=== PATIENT | female | born 1950 | race Caucasian/White ===

== ENCOUNTER 2018-05-09 21:21 | Outpatient (REF) | payer MEDICARE, MEDICAID, SELFPAY ==
[2018-05-09 21:54] LABS: BUN 13 mg/dL (7-18); CREATININE 0.74 mg/dL (0.55-1.02); Calcium 9.4 mg/dL (8.5-10.1); Chloride 102 mmol/L (98-107); Glucose 99 mg/dL (70-100); Potassium 4.3 mmol/L (3.5-5.1); Sodium 139 mmol/L (136-145)
[2018-05-09 22:10] LABS: COMMENT (LAB VIEW ONLY) 66.65 mg/dL; Microalb ug/mg Crea 9.9 ug/mg Cr
== END 2018-05-09 21:41 ==
LOC: NCHCN 21:21
PROVIDERS: Family Medicine; PCP Family Medicine
DX: I10 Essential (primary) hypertension (principal)
CPT/HCPCS: 80048; 82043; 82570

== ENCOUNTER 2018-08-07 11:42 | Outpatient (REF) | payer MEDICARE, MEDICAID, SELFPAY ==
[2018-08-07 21:20] LABS: HCT 36.8 % (36.0-46.0); HGB 12.2 g/dL (12.0-15.5); Mean Corp. HGB Concentration 33.2 g/dL (32.0-36.0); Mean Corpuscular Hemoglobin 30.9 pg (27.0-33.0); Mean Corpuscular Volume 93.2 fL (80-95); Mean Platelet Volume 9.4 fL (8.0-11.0); Platelet Count 335 x1000/uL (130-400); RBC 3.95 m/cumm (4.00-5.20); RBC Distribution Width 12.5 % (11.7-14.6); White Blood Cell Count 7.18 k/cumm (4.4-10.8)
[2018-08-07 21:41] LABS: Hemoglobin A1C 5.6 % (4.5-6.2)
== END 2018-08-07 12:02 ==
LOC: NCHCN 11:42
PROVIDERS: PCP Family Medicine; Visit Provider Family Medicine
DX: R73.09 Other abnormal glucose (principal); R22.1 Localized swelling, mass and lump, neck
CPT/HCPCS: 85027; 83036

== ENCOUNTER 2019-08-13 14:22 | Outpatient (REF) | payer MEDICARE, MEDICAID, SELFPAY ==
[2019-08-13 21:40] LABS: Anion Gap 7.6 mmol/L (3-11); BUN 11 mg/dL (7-18); CO2 29.4 mmol/L (21.0-32.0); CREATININE 0.91 mg/dL (0.55-1.02); Calcium 8.9 mg/dL (8.5-10.1); Chloride 100 mmol/L (98-107); Glucose 133 mg/dL (74-106); Potassium 3.9 mmol/L (3.5-5.1); Sodium 137 mmol/L (136-145)
[2019-08-13 21:54] LABS: Hemoglobin A1C 6.3 % (3.8-5.6)
== END 2019-08-13 14:42 ==
LOC: NCHCN 14:22
PROVIDERS: PCP Family Medicine; Visit Provider Family Medicine
DX: I10 Essential (primary) hypertension (principal); R73.03 Prediabetes
CPT/HCPCS: 80048; 83036

== ENCOUNTER 2020-03-04 12:04 | Outpatient (REF) | payer MEDICARE, MEDICAID, SELFPAY ==
[2020-03-04 22:44] LABS: Iron 62 ug/dL (50-170); Total Iron Binding Capacity 338 ug/dL (250-450); Transferrin Sat 18 % (15-50)
[2020-03-04 22:51] LABS: Hemoglobin A1C 5.5 % (<5.7)
[2020-03-04 22:57] LABS: Ferritin 41 ng/mL (8-252)
[2020-03-19 13:10] LABS: HBc IgM Ab, S Negative (Negative)
[2020-03-19 13:11] LABS: Hepatitis C Ab w Rflx HCV PCR Reactive (Negative)
[2020-03-19 13:14] LABS: HCV RNA Qualitative Undetected (Undetected)
== END 2020-03-04 12:24 ==
LOC: NCHCN 12:04
PROVIDERS: PCP Family Medicine; Visit Provider Family Medicine
DX: D64.9 Anemia, unspecified (principal); R73.03 Prediabetes; B19.20 Unspecified viral hepatitis C without hepatic coma; Z11.59 Encounter for screening for other viral diseases
CPT/HCPCS: 86803; 87522; 82728; 83036; 83540; 83550; 86704; 86705

== ENCOUNTER 2020-07-07 16:34 | Outpatient (REF) | payer MEDICARE, MEDICAID, SELFPAY ==
[2020-07-07 22:06] LABS: Anion Gap 9.4 mmol/L (3-11); BUN 20 mg/dL (7-18); CO2 27.6 mmol/L (21.0-32.0); CREATININE 0.8 mg/dL (0.55-1.02); Calcium 8.9 mg/dL (8.5-10.1); Chloride 106 mmol/L (98-107); Glucose 90 mg/dL (74-106); Potassium 3.8 mmol/L (3.5-5.1); Sodium 143 mmol/L (136-145)
== END 2020-07-07 16:35 | disposition home or self-care (01) ==
LOC: NCHCN 16:34
PROVIDERS: PCP Family Medicine; Visit Provider Family Medicine
DX: I10 Essential (primary) hypertension (principal); N28.9 Disorder of kidney and ureter, unspecified; J44.9 Chronic obstructive pulmonary disease, unspecified
CPT/HCPCS: 80048

== ENCOUNTER 2021-05-04 20:04 | Outpatient (REF) | payer MEDICARE, MEDICAID, SELFPAY ==
[2021-05-04 22:26] LABS: HCT 37.9 % (36.0-46.0); HGB 12.1 g/dL (11.2-15.7); MCH 28.8 pg (27.0-33.0); MCHC 31.9 % (32.0-36.0); MCV 90.2 fL (80-95); MPV 9.7 fL (8.0-11.0); Platelet Count 314 10^3/uL (130-400); RDW 12.9 % (11.7-14.6); RDW-SD 42.6 fL; WBC 6.14 10^3/uL (4.4-10.8)
[2021-05-04 22:43] LABS: Anion Gap 8.7 mmol/L (3-11); BUN 18 mg/dL (7-18); CO2 27.3 mmol/L (21.0-32.0); CREATININE 0.8 mg/dL (0.55-1.02); Calcium 8.9 mg/dL (8.5-10.1); Chloride 102 mmol/L (98-107); Glucose 95 mg/dL (74-106); NT-proBNP 138 pg/mL (<300); Sodium 138 mmol/L (136-145)
[2021-05-04 22:49] LABS: Hemoglobin A1C 5.8 % (<5.7)
== END 2021-05-04 20:05 | disposition home or self-care (01) ==
LOC: NCHCN 20:04
PROVIDERS: PCP Family Medicine; Visit Provider Family Medicine
DX: R73.03 Prediabetes (principal); R06.00 Dyspnea, unspecified; R60.9 Edema, unspecified; R63.5 Abnormal weight gain
CPT/HCPCS: 80048; 85027; 83036; 83880

== ENCOUNTER 2021-05-18 19:52 | Outpatient (REF) | payer MEDICARE, MEDICAID, SELFPAY ==
[2021-05-18 16:03] LABS: Anion Gap 7.7 mmol/L (3-11); BUN 18 mg/dL (7-18); CO2 30.3 mmol/L (21.0-32.0); Calcium 8.8 mg/dL (8.5-10.1); Chloride 103 mmol/L (98-107); Estimated GFR 54.81 (mL/min/1.73m2); Glucose 100 mg/dL (74-106); Sodium 141 mmol/L (136-145)
== END 2021-05-18 19:53 | disposition home or self-care (01) ==
LOC: NCHCN 19:52
PROVIDERS: PCP Family Medicine; Visit Provider Family Medicine
DX: I10 Essential (primary) hypertension (principal); Z79.899 Other long term (current) drug therapy
CPT/HCPCS: 80048

== ENCOUNTER 2021-10-15 03:32 | Outpatient (CLI) | payer MEDICARE, MEDICAID, SELFPAY ==
[2021-10-15] MEDS: Albuterol HFA 18 GM 200 PUFF INH IH (14:21)
[2021-10-15] MEDS: Inhaler, Assist Device 1 EACH MC (14:21)
--- NOTE | 2021-10-20 17:47 | W.PFT ---
Date of service: 10/15/21 Time of Service: 13:13 Pulmonary Function Test Result Requesting Provider Donald Indications: Emphysema Interpretation Spirometry: There is moderate airflow limitaiton. Ther eis no significant bronchodilator response. Lung Volumes: Lung volumes are normal Diffusion Capacity: Reduced diffusion Airway Pressure: Normal airways resistance Impression Moderate airflow limitation and a reduced diffusion. 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 Note: When compared to 04/04/19,the FEEV1 and FVC have decreased. Clinical Correlation therefore is recommended.
== END 2021-10-15 03:33 | disposition home or self-care (01) ==
LOC: RT 03:33
PROVIDERS: PCP Family Medicine; Visit Provider Student in an Organized Health Care Education/Training Program
DX: R94.2 Abnormal results of pulmonary function studies; J43.9 Emphysema, unspecified; R06.09 Other forms of dyspnea; Z87.891 Personal history of nicotine dependence; Z87.01 Personal history of pneumonia (recurrent)
CPT/HCPCS: 94060; 94726; 94729

== ENCOUNTER → 2021-11-24 01:37 | Outpatient (CLI) | payer MEDICARE, MEDICAID, SELFPAY ==
--- NOTE | 2021-11-24 10:31 | DI.US_ITS ---
APPROVED REPORT EXAM: Comprehensive 2D, Doppler, and color-flow Echocardiogram Patient Location: Out-Patient Mining Machinery Assembler: Kayli Buck RDCS (AE) Indications: Dyspnea, Hypoxia, r/o Shunt Echo Enhancing Agent Indication: Rule out Shunt Agent(s) / Amount(s) Used: Agitated Saline 30.0 cc Comments: Contrast study was performed with 3 IV injections of 10ccs of agitated normal saline, at [facility], with cough and post valsalva maneuver. Negative contrast study for shunt flow. Other Information Study Quality: Adequate Conclusion Normal left ventricular wall thickness and chamber size. Estimated ejection fraction is 60 to 65%. Wall motion is normal Normal right ventricular size and systolic function Both atria are normal in size No intracardiac shunt is identified with administration of agitated saline Aortic valve is trileaflet with mild regurgitation Mild to moderate mitral annular calcification. Trace mitral regurgitation Normal tricuspid valve with trace regurgitation. Estimated right ventricular systolic pressure is 25 mmHg Wall motion Left Ventricle The left ventricle is normal size. The left ventricular systolic function is normal. The left ventric ular ejection fraction is within the normal range. There is normal left ventricular wall thickness. T here is normal LV segmental wall motion. There is no ventricular septal defect visualized. LVEF is 60 -65%. Right Ventricle The right ventricle is normal size. The right ventricular systolic function is normal. The RVSP is 25 .3 mmHg. Atria The left atrium size is normal. The right atrium size is normal. The interatrial septum is intact wit h no evidence for an atrial septal defect. Saline bubble contrast intravenous injection does not demo nstrate PFO. Aortic Valve The aortic valve is normal in structure. Aortic valve is trileaflet. There is no aortic valvular sten osis. mild aortic regurgitation. Mitral Valve Mild to moderate mitral annular calcification. No evidence of mitral valve stenosis. Trace mitral reg urgitation. Tricuspid Valve The tricuspid valve is normal in structure. There is no tricuspid valve stenosis. Trace tricuspid reg urgitation. Pulmonic Valve The pulmonary valve is normal in structure. There is no pulmonic valvular stenosis. Trace pulmonic re gurgitation. Great Vessels The aortic root is normal in size. The ascending aorta is normal in size. Aortic arch is normal in ca liber. IVC is normal in size and collapses >50% with inspiration. Pericardium There is no pericardial effusion. 2D Dimensions IVSD d PLAX 0.89 cm F: 0.6-1.0 LV Vol A2C d MOD 88.1 mL LVPW d PLAX 0.86 cm F: 0.6 - 1.0 LV Vol A4C d MOD 97.8 mL LVID d PLAX 4.01 cm F: 3.8 - 5.2 LA vol/ BSA A2C s A-L 22.9 mL/m2 LVDs 2.70 cm F: 2.2 - 3.5 LA vol/ BSA A4C s A-L 25.1 mL/m2 Ao Root d 2.64 cm F: 2.7 - 3.3 LA Vol/ BSA Biplane s A-L 25.5 mL/m2 RA Area A4C 11.63 cm2 LA Area A4C s MOD 17.79 cm2 RA Vol/ BSA A4C s A-L 12.6 mL/m2 LA Area A2C s MOD 16.02 cm2 Ao Asc Diam d 3.14 cm F: 2.3 - 3.1 LV EF A4C MOD 65.5 % LV EF Teichholz 61.5 % LV EF A2C MOD 60.4 % LVEF (Palencia's) 62.69 % F: 54 - 74 LV EF Biplane MOD 62.7 % LV Volume 72.09 mL F: 46 - 106 SV 58.26 mL LV Volume Index 39.82 mL/m2 F: 29 - 61 SV Index 32.12 mL/m2 LV Vol Biplane MOD 92.9 mL FS 32.55 % M-Mode TAPSE 1.96 cm (M/F) >1.7 LV Diastology MV E' medial 0.067 (>0.07 m/s) E/A Ratio 0.7 LV E/e MED 8.15 (<14) MV E Vmax 0.55 (0.4-1.3 m/s) MV E' lateral 0.090 (>0.1 m/s) MV A Vmax 0.80 (0.4-1.3 m/s) LV E/e LAT 6.10 (<14) MV E/A Ratio 0.64 MV E/E' medial 8.20 MV E/E' lateral 6.11 Aortic Valve LVOT Area 3.03 cm2 AoV Area Vmax 2.46 cm2 LVOT Vmax 1.26 m/s AoV Area/ BSA (Vmax) 1.36 cm2/m2 LVOT Mean Abdelrahman. 0.77 m/s ARSHAWN Mean Abdelrahman. 2.18 cm2 LVOT Peak Grad 6.3 mmHg RASHAWN Mean Abdelrahman. Index 1.20 cm2/m2 LVOT Mean Grad 2.9 mmHg LVOT VTI 0.252 m LVOT Diam s 1.95 cm AoV Vmax 1.55 m/s Velocity Ratio 0.81 AoV Mean Abdelrahman. 1.07 m/s AoV Peak Grad 9.6 mmHg LVOT SV 76.19 mL AoV Mean Grad 5.2 mmHg AoV VTI 0.283 m AoV Area VTI 2.69 cm2 AoV Area/ BSA (VTI) 1.48 cm/m2 Mitral Valve MV DT 289 (160-240 msec) MV PHT 84 msec MV Area PHT 2.63 cm2 MV VTI 0.305 m MV Area VTI 2.50 (4.0-6.0 cm2) Pulmonary Valve PV Vmax 1.04 (0.5-1.5 m/s) RVOT Peak Gr. 2.23 mmHg PV Peak Grad 4.3 mmHg RVOT Mean Gr. 1.00 mmHg PV Mean Grad 2.1 mmHg RVOT VTI 0.114 m PV VTI 0.168 m RVOT Vmax 0.75 m/s Tricuspid Valve TR Peak Grad 22.3 mmHg TR Vmax 2.36 m/s RA Pressure 3.00 mmHg RVSP (TR) 25.3 mmHg
== END ==
PROVIDERS: PCP Family Medicine; Visit Provider Student in an Organized Health Care Education/Training Program
DX: R06.00 Dyspnea, unspecified (principal); R09.02 Hypoxemia
CPT/HCPCS: 93306

== ENCOUNTER 2022-04-05 17:57 | Outpatient (REF) | payer MEDICARE, MEDICAID, SELFPAY ==
[2022-04-05 14:56] LABS: HCT 38.7 % (36.0-46.0); HGB 12.1 g/dL (11.2-15.7); MCHC 31.3 % (32.0-36.0); MCV 90 fL (80-95); MPV 9.4 fL (8.0-11.0); Platelet Count 277 10^3/uL (130-400); RBC 4.32 10^6/uL (3.93-5.22); RDW 14.3 % (11.7-14.6); RDW-SD 47.4 fL
[2022-04-05 15:07] LABS: Anion Gap 4.9 mmol/L (3-11); BUN 16 mg/dL (7-18); CO2 31.1 mmol/L (21.0-32.0); Calcium 9.1 mg/dL (8.5-10.1); Calculated LDL 110 mg/dL (<100); Chloride 106 mmol/L (98-107); Cholesterol 232 mg/dL (<200); Estimated GFR 60.23 (mL/min/1.73m2); Glucose 105 mg/dL (74-106); HDL Cholesterol 95 mg/dL (40-60); Potassium 4.1 mmol/L (3.5-5.1); Sodium 142 mmol/L (136-145); Triglyceride 136 mg/dL (<150)
[2022-04-05 15:28] LABS: Vitamin D 25 Total 36.4 ng/mL (30-100)
== END 2022-04-05 17:58 | disposition home or self-care (01) ==
LOC: NCHCN 17:57
PROVIDERS: PCP Family Medicine; Visit Provider Family Medicine
DX: E66.9 Obesity, unspecified (principal); D64.9 Anemia, unspecified; I10 Essential (primary) hypertension; E78.5 Hyperlipidemia, unspecified; G31.84 Mild cognitive impairment of uncertain or unknown etiology
CPT/HCPCS: 80048; 80061; 82306; 85027

== ENCOUNTER 2022-12-13 18:13 | Outpatient (REF) | payer OTHER, MEDICAID, SELFPAY ==
[2022-12-13 22:22] LABS: ALT 30 U/L (14-59); AST 31 U/L (15-37); Alkaline Phosphatase 75 U/L (46-116); Anion Gap 8.3 mmol/L (3-11); BUN 13 mg/dL (7-18); Bilirubin, Total 0.4 mg/dL (0.2-1.0); CO2 29.7 mmol/L (21.0-32.0); CREATININE 1.3 mg/dL (0.55-1.02); Calcium 8.7 mg/dL (8.5-10.1); Chloride 105 mmol/L (98-107); Estimated GFR 43.96 (mL/min/1.73m2); Glucose 109 mg/dL (74-106); Potassium 3.6 mmol/L (3.5-5.1); Sodium 143 mmol/L (136-145); Total Protein 7.4 g/dL (6.4-8.2)
== END 2022-12-13 18:14 | disposition home or self-care (01) ==
LOC: NCHCN 18:13
PROVIDERS: PCP Family Medicine; Visit Provider Family Medicine
DX: I10 Essential (primary) hypertension
CPT/HCPCS: 80053

== ENCOUNTER → 2023-11-06 13:47 | Outpatient (BNVA) | payer OTHER, MEDICAID, SELFPAY | PROVIDERS: PCP Family Medicine; Referring Provider Family Medicine; Visit Provider Internal Medicine Critical Care Medicine | DX: J44.9 Chronic obstructive pulmonary disease, unspecified (principal); J96.91 Respiratory failure, unspecified with hypoxia; Z87.891 Personal history of nicotine dependence | CPT/HCPCS: 36415; 99214 ==

== ENCOUNTER 2023-12-08 11:55 | Day surgery (SDC) | payer OTHER, MEDICAID, SELFPAY ==
[2023-12-08 12:40] VITALS: BP 143/78; PULSE 62; RESP 18; TEMP 37.2; O2SAT 95
[2023-12-08] MEDS: Povidone-Iodine Ophth 30 ML BTL (13:17)
[2023-12-08] MEDS: Tetracaine 0.5% 4 ML BTL OS (13:18)
--- NOTE | 2023-12-08 13:24 | W.ANESPRE ---
General Info Date of Service Date Performed: 12/08/23 Height: 4 ft 11.06 in Weight: 72 kg Body Mass Index (BMI): 32.0 Surgical Procedure: Operation Date: 12/08/23 15:40 Proposed Procedure Side Surgeon p Cataract Extraction with IOL Implant Left Terrell Springer MD Meds Allergies and Home Medications Allergies Allergy/AdvReac Type Severity Reaction Status Date / Time trazodone Allergy Severe nightmares Verified 12/08/23 13:03 alendronate sodium (From Allergy Intermediate extreme Verified 12/08/23 13:03 Fosamax) joint pain lisinopril Allergy Intermediate cough Verified 12/08/23 13:03 Home Medication ?Medication ?Instructions ?Recorded Oxygen #1 ea 05/07/21 amlodipine 10 mg tablet 10 mg PO DAILY 05/07/21 azithromycin 250 mg tablet 250 mg PO DAILY 05/07/21 calcium carbonate (Calcium 600) 600 mg PO DAILY 05/07/21 donepezil 10 mg tablet (Aricept) 10 mg PO DAILY 05/07/21 ergocalciferol (vitamin D2) 50 mcg 50 mcg PO .week 05/07/21 (2,000 unit) capsule fexofenadine 180 mg tablet 180 mg PO DAILY 05/07/21 fluticasone propionate 50 1 spray intranasal BID 05/07/21 mcg/actuation nasal spray,suspension furosemide 20 mg tablet 20 mg PO DAILY 05/07/21 meloxicam 15 mg tablet 15 mg PO DAILY 05/07/21 montelukast 10 mg tablet 10 mg PO DAILY 05/07/21 multivitamin 1 tab PO DAILY 05/07/21 nebulizers #1 ea 05/07/21 omeprazole 40 mg capsule,delayed 40 mg PO DAILY 05/07/21 release sumatriptan succinate 100 mg tablet 100 mg PO ONCE 05/07/21 budesonide 160 mcg-glycopyr 9 2 inh inhalation BID #10.7 grams 02/09/22 mcg-formot 4.8 mcg/actuation HFA inhaler (Breztri Aerosphere) ipratropium 0.5 mg-albuterol 3 mg 3 ml inhalation QID PRN PRN 11/15/22 (2.5 mg base)/3 mL nebulization shortness of breath or wheezing soln #540 mL levalbuterol tartrate 45 2 inh inhalation Q6H #15 grams 11/15/22 mcg/actuation aerosol inhaler (Xopenex HFA) acetylcysteine 600 mg capsule 600 mg PO BID 12/04/23 albuterol sulfate 90 mcg/actuation 2 puff inhalation DIRECTED 12/04/23 aerosol inhaler (Proventil HFA) shortness of breath or wheezing buspirone 30 mg tablet 30 mg PO TID 12/04/23 diphenhydramine HCl 50 mg tablet 50 mg PO DIRECTED 12/04/23 (Benadryl Allergy) empagliflozin 25 mg tablet 25 mg PO DAILY 12/04/23 (Jardiance) gabapentin 100 mg capsule 100 mg PO TID 12/04/23 mirtazapine 15 mg tablet 15 mg PO QHS 12/04/23 sertraline 100 mg tablet 100 mg PO DAILY 12/04/23 sertraline 50 mg tablet 50 mg PO DIRECTED 12/04/23 triamcinolone acetonide 0.1 % 1 applic topical BID 12/04/23 topical cream Current Visit Medications: Current Medications Generic Name Dose Route Start Last Admin Trade Name Freq PRN Reason Stop Dose Admin Acetaminophen 1,000 mg 12/08/23 06:00 Acetaminophen 500 Mg Tab PO 01/07/24 05:59 Q4H PRN PRN Balanced Salt Solution 500 ml 12/08/23 06:00 Balanced Salt Soln.-Plus 500 Ml Bag OP 01/07/24 05:59 DIRECTED [facility] Miscellaneous Medication 0 ml 12/08/23 06:00 Prednisolone 1%, Moxifloxacin 0.5%, Bromfenac 0.09% 5.6ml Btl OS 01/07/24 05:59 DIRECTED [facility] Miscellaneous Medication 0 ml 12/08/23 06:00 12/08/23 13:08 Tropicam./Phenyleph. (1/2.5%) 10 Ml Btl OS 01/07/24 05:59 1 drp DIRECTED [facility] Administration Tetracaine HCl 0 ml 12/08/23 06:00 Tetracaine 0.5% 4 Ml Btl OS 01/07/24 05:59 DIRECTED [facility] PFSH Active Problems Active Problems: Problem Status Onset Code Nuclear age-related cataract, left eye Acute H25.12 Respiratory failure with hypoxia Acute J96.91 Chronic obstructive pulmonary disease Chronic J44.9 Obesity hypoventilation syndrome Acute E66.2 Normocytic anemia Acute D64.9 Gall stones Acute K80.20 Degenerative disc disease Acute Chronic pain syndrome Chronic G89.4 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 Perennial allergic rhinitis Acute J30.89 Hyperlipidemia Acute E78.5 GERD (gastroesophageal reflux disease) Chronic K21.9 Paresthesia of lower extremity Acute R20.2 Flat feet Acute M21.41, M21.42 Bunion of right foot Acute M21.611 Rotator cuff syndrome Acute M75.100 Arthritis Acute M19.90 Avascular necrosis of head of humerus Acute M87.029 Renal insufficiency Chronic N28.9 Polypharmacy Acute Z79.899 Essential hypertension Acute I10 Prediabetes Acute R73.03 Mild cognitive impairment Acute G31.84 Osteoporosis Chronic M81.0 Urinary incontinence Acute R32 Sore throat Acute J02.9 IBS (irritable bowel syndrome) Chronic K58.9 Degenerative joint disease of hand Acute M19.049 DJD of both shoulders Acute M19.011, M19.012 Knee pain Acute M25.569 Leg cramps Acute R25.2 Obesity Chronic E66.9 Weight gain Acute R63.5 Insomnia Acute G47.00 Depression with anxiety Acute F41.8 Former cigarette smoker Acute Z87.891 Edema, peripheral Acute R60.9 Dyspnea Acute R06.00 Anemia Chronic D64.9 Medical History Medical History (Updated 12/07/23 @ 14:31 by Shon Chavarria) Malignant hyperthermia FH malignant hyperthermia per PCP H&P-pt. is not sure which family member Chronic kidney disease, stage 3 Urge incontinence Migraine Psychophysiologic insomnia Alcohol dependence Substance abuse Hepatitis C Pneumonia Medical History Comments:: Unknown MH hx Surgical History Surgical History Hx of fracture of clavicle ORIF w/pin [place] teeth extracted History of lung surgery lung decortication procedure History of tonsillectomy and adenoidectomy History of thumb surgery bilat Tobacco Smoking/Tobacco Use Status: Former Tobacco Use Alcohol Alcohol Intake: current Alcohol intake frequency: 0-2 drinks per day Substance Use Substance use: Occasionally Substance use type: marijuana Details: edible Vital Signs and Lab Results Vital Signs Most Recent Vital Signs in EMR: Most Recent Vital Signs Temp Pulse Resp BP Pulse Ox 37.2 C 62 18 143/78 H 95 12/08/23 12:40 12/08/23 12:40 12/08/23 12:40 12/08/23 12:40 12/08/23 12:40 Lab Results Blood Type / Crossmatch: No Data to Display Complete Blood Count: No Data to Display Complete Metabolic Panel: No Data to Display Liver Function Panel: No Data to Display Coagulation Panel: No Data to Display Cardiac Panel: No Data to Display Arterial Blood Gas: No Data to Display Venous Blood Gas: No Data to Display Pancreas Panel: No Data to Display Thyroid Panel: No Data to Display Infectious Disease: No Data to Display Blood Cultures: No Data to Display Toxicology Panel: No Data to Display Imaging and Studies Imaging and Studies Study information below may be from another EMR and interpreted by another provider. Please see original notes in EMR for more complete details. Echocardiogram Summary: Patient Name: Kyleigh Caballero Unit #: [id number] Loc: DI Ordering Provider: Irlanda Bennett M.D. Status: REG I Primary Care Provider: Nayana Newberry Date of Exam: 11/24/21 Sex: F Admission Date: 11/24/21 : 1950 Age: 71 APPROVED REPORT EXAM: Comprehensive 2D, Doppler, and color-flow Echocardiogram Patient Location: Out-Patient Sight Effects Specialist: Kayli Buck RDCS (AE) Indications: Dyspnea, Hypoxia, r/o Shunt Echo Enhancing Agent Indication: Rule out Shunt Agent(s) / Amount(s) Used: Agitated Saline 30.0 cc Comments: Contrast study was performed with 3 IV injections of 10ccs of agitated normal saline, at rest, with cough and post valsalva maneuver. Negative contrast study for shunt flow. Other Information Study Quality: Adequate Conclusion Normal left ventricular wall thickness and chamber size. Estimated ejection fraction is 60 to 65%. Wall motion is normal Normal right ventricular size and systolic function Both atria are normal in size No intracardiac shunt is identified with administration of agitated saline Aortic valve is trileaflet with mild regurgitation Mild to moderate mitral annular calcification. Trace mitral regurgitation Normal tricuspid valve with trace regurgitation. Estimated right ventricular systolic pressure is 25 mmHg Wall motion Left Ventricle The left ventricle is normal size. The left ventricular systolic function is normal. The left ventricular ejection fraction is within the normal range. There is normal left ventricular wall thickness. There is normal LV segmental wall motion. There is no ventricular septal defect visualized. LVEF is 60-65%. Right Ventricle The right ventricle is normal size. The right ventricular systolic function is normal. The RVSP is 25.3 mmHg. Atria The left atrium size is normal. The right atrium size is normal. The interatrial septum is intact with no evidence for an atrial septal defect. Saline bubble contrast intravenous injection does not demonstrate PFO. Aortic Valve The aortic valve is normal in structure. Aortic valve is trileaflet. There is no aortic valvular stenosis. mild aortic regurgitation. Mitral Valve Mild to moderate mitral annular calcification. No evidence of mitral valve stenosis. Trace mitral regurgitation. Tricuspid Valve The tricuspid valve is normal in structure. There is no tricuspid valve stenosis. Trace tricuspid regurgitation. Pulmonic Valve The pulmonary valve is normal in structure. There is no pulmonic valvular stenosis. Trace pulmonic regurgitation. Great Vessels The aortic root is normal in size. The ascending aorta is normal in size. Aortic arch is normal in caliber. IVC is normal in size and collapses >50% with inspiration. Pericardium There is no pericardial effusion. 2D Dimensions IVSD d PLAX 0.89 cm F: 0.6-1.0LV Vol A2C d MOD 88.1 mL LVPW d PLAX 0.86 cm F: 0.6 - 1.0LV Vol A4C d MOD 97.8 mL LVID d PLAX 4.01 cm F: 3.8 - 5.2LA vol/ BSA A2C s A-L22.9 mL/m2 LVDs 2.70 cm F: 2.2 - 3.5LA vol/ BSA A4C s A-L25.1 mL/m2 Ao Root d 2.64 cm F: 2.7 - 3.3LA Vol/ BSA Biplane s A-L 25.5 mL/m2 RA Area A4C11.63 cm2LA Area A4C s MOD 17.79 cm2 RA Vol/ BSA A4C s A-L 12.6 mL/m2LA Area A2C s MOD 16.02 cm2 Ao Asc Diam d 3.14 cm F: 2.3 - 3.1LV EF A4C MOD 65.5 % LV EF Teichholz 61.5 %LV EF A2C MOD 60.4 % LVEF (Palencia's)62.69 % F: 54 - 74LV EF Biplane MOD 62.7 % LV Skddcs13.09 mL F: 46 - 244RY89.26 mL LV Volume Index39.82 mL/m2 F: 29 - 61SV Index32.12 mL/m2 LV Vol Biplane MOD 92.9 mL FS32.55 % M-Mode TAPSE 1.96 cm (M/F) >1.7 LV Diastology MV E' medial0.067 (>0.07 m/s)E/A Ratio 0.7 LV E/e MED8.15 (<14)MV E Vmax 0.55 (0.4-1.3 m/s) MV E' lateral0.090 (>0.1 m/s)MV A Vmax 0.80 (0.4-1.3 m/s) LV E/e LAT6.10 (<14)MV E/A Ratio 0.64 MV E/E' medial 8.20 MV E/E' lateral6.11 Aortic Valve LVOT Area3.03 cm2AoV Area Vmax2.46 cm2 LVOT Vmax 1.26 m/sAoV Area/ BSA (Vmax)1.36 cm2/m2 LVOT Mean Abdelrahman.0.77 m/sAVA Mean Abdelrahman.2.18 cm2 LVOT Peak Grad 6.3 mmHgAVA Mean Abdelrahman. Index1.20 cm2/m2 LVOT Mean Grad 2.9 mmHg LVOT VTI0.252 m LVOT Diam s 1.95 cm AoV Vmax1.55 m/s Velocity Ratio 0.81 AoV Mean Abdelrahman.1.07 m/s AoV Peak Grad9.6 mmHg LVOT SV 76.19 mL AoV Mean Grad5.2 mmHg AoV VTI0.283 m AoV Area VTI2.69 cm2 AoV Area/ BSA (VTI)1.48 cm/m2 Mitral Valve MV DT 289 (160-240 msec) MV PHT84 msec MV Area PHT 2.63 cm2 MV VTI 0.305 m MV Area VTI 2.50 (4.0-6.0 cm2) Pulmonary Valve PV Vmax 1.04 (0.5-1.5 m/s)RVOT Peak Gr.2.23 mmHg PV Peak Grad 4.3 mmHgRVOT Mean Gr.1.00 mmHg PV Mean Grad 2.1 mmHgRVOT VTI0.114 m PV VTI 0.168 mRVOT Vmax 0.75 m/s Tricuspid Valve TR Peak Grad 22.3 mmHgTR Vmax 2.36 m/s RA Pressure 3.00 mmHg RVSP (TR) 25.3 mmHg Ordered By: Irlanda Bennett M.D. CC: Dictated By: Meka García M.D. 11/24/21 1154 <Electronically signed by eMka García M.D. in OV> 11/25/21 0815 Transcribed By: Meka García MD This is privileged, confidential information intended only for the provider named. Any use or distribution by any person other than this provider is strictly prohibited. If you receive this report in error, please notify us immediately at [phone] and return the original report to us at the address above. Thank-you. Pulmonary Function Summary: Pulmonary Function Test PATIENT NAME: Kyleigh Caballero UNIT #: [id number] ADMITTING PROVIDER: Irlanda Bennett M.D. PRIMARY CARE PROVIDER: NAYANA NEWBERRY MD DATE OF ADMIT: 10/15/21 : 1950 Date of service: 10/15/21 Time of Service: 13:13 Pulmonary Function Test Result Requesting Provider Donald Indications: Emphysema Interpretation Spirometry: There is moderate airflow limitaiton. Ther eis no significant bronchodilator response. Lung Volumes: Lung volumes are normal Diffusion Capacity: Reduced diffusion Airway Pressure: Normal airways resistance Impression Moderate airflow limitation and a reduced diffusion. 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 Note: When compared to 04/04/19,the FEEV1 and FVC have decreased. Clinical Correlation therefore is recommended. cc: Dictated by: IRLANDA BENNETT MD Dictated: 10/20/21 Time: 1746 <Electronically signed by Irlanda Bennett M.D.> Date: 10/20/211805 Date: Date: Transcribed Date: 10/20/21 Transcribed Time: 1746 By: ESTELA This is privileged, confidential information, intended only for the provider named. Any use or distribution by any person other than this provider is strictly prohibited. If you receive this report in error, please notify us immediately at [phone] and return the original report to us at the address above. Thank you. Anesthesia Assessment and Plan Anesthesia History Personal History: No History of Anesthesia Complications Family History: Malignant Hyperthermia Exercise Tolerance Exercise Tolerance: Metabolic Equivalents>4 Pertinent Negatives Pertinent Negatives: No Symptoms of GERD Cardiac & Pulmonary Exam Cardiac Exam: Normal S1/S2 Heart Sounds Pulmonary Exam: Clear Bilateral Breath Sounds Implantable Cardiac Device Does patient have a Pacemaker or an ICD?: No Airway Exam Known Difficult Airway: No Mallampati Class: 2 Mouth Opening: Normal (> 3cm) Thyromental Distance: Greater than 3 cm Neck Range of Motion: Full ROM Neck Circumference: Normal Teeth Condition: Normal Dentition and Removable Dentures/Plates Upper ASA Classification ASA Score: ASA 3 Emergency Case?: No NPO Status NPO Status: NPO Clears >2 hours, Solids >8 hours Anesthesia Plan Resuscitation Status: Full Code Anesthesia Technique: General Anesthesia Airway Planned: Natural Airway Monitors Used: Standard Monitors
[2023-12-08 13:25] VITALS: BMI 32.0
[2023-12-08] MEDS: Balanced Salt Soln.-PLUS 500 ML BAG OP (13:25)
[2023-12-08] MEDS: Duovisc Viscoelastic System EACH 1 EACH (13:25)
[2023-12-08] MEDS: Lidocaine 1% Pres-Free 5 ML VIAL (13:26)
[2023-12-08] MEDS: Prednisolone 1%, Moxifloxacin 0.5%, Bromfenac 0.09% 5.6ML BTL OS (13:37)
[2023-12-08 13:42] VITALS: BP 141/76; PULSE 62; RESP 18; TEMP 36.6; O2SAT 95
--- NOTE | 2023-12-08 13:45 | ROE_ITS ---
Date of service: 12/08/23 Time of Service: 13:45 Operative Note Operative Note DATE OF PROCEDURE: 12/08/23 PRE-OP DIAGNOSIS: Nuclear cataract, left eye POST-OP DIAGNOSIS: same PROCEDURE: Cataract extraction using phacoemulsification with intraocular lens implant, left eye SURGEON: Terrell Springer ANESTHESIA TYPE: Local By Surgeon and MAC Refer to Anesthesia Record PATHOLOGY: none sent COMPLICATIONS: None Patient was transported to: same day Patient's condition: stable Implants: Shahab Clareon [email or web address] Indications: Progressive decreased vision due to cataract, left eye Procedure Description: CATARACT SURGERY OPERATIVE REPORT PREOPERATIVE DIAGNOSIS: Nuclear cataract, left eye POSTOPERATIVE DIAGNOSIS: Same OPERATION: Cataract extraction using phacoemulsification with posterior chamber intraocular lens implant, left eye. IOL: IOL Assistant Athletic Trainer/Model: Shahab Clareon [id number] IOL Power: + 16.5 diopters IOL Serial Number: [id number] Optic Diameter: 6.0mm Haptic/Overall Diameter: 13.0mm PHACO INFO: Shahab VanceInfo Technologiesurion Vision System with OZil and Active Fluidics Cumulative Dispersed Energy (CDE): 6.79 seconds SURGEON: Terrell Springer MD, DISHA ANESTHESIA: Monitored Anesthesia Care (MAC), with local sub-tenon's anesthetic infiltration COMPLICATIONS: None SPECIMENS: None INDICATIONS FOR PROCEDURE: The patient is a 73-year-old lady with history of diminished visual acuity in her left eye secondary to the development of significant nuclear cataract. She is symptomatic enough that she desires cataract surgery and attempt to improve and maximize her vision. The option of cataract surgery was offered to the patient and she wished to proceed. See office notes for detailed information. PROCEDURE: The correct surgical eye was identified and marked as the left eye and the pupil was dilated in the preoperative area using mydriatics and cycloplegics. The dilated pupil size was 6.0 mm. . The patient elected to proceed without oral sedation. The patient was brought to the operating room where cardiopulmonary monitoring was instituted and surgical time-out was performed, confirming the correct operative eye and IOL power. Topical anesthesia was administered and ophthalmic povidone-iodine 5% was instilled into the conjunctival fornices. The margie-ocular area was prepped with Betadine 10% solution and draped in the usual sterile fashion for intraocular surgery, including an aperture drape. A Tegaderm transparent film dressing was cut in half and used to cover the lashes and lid margins. Care was taken to sequester the lashes and lid margins under the Tegaderm dressing. A lid speculum was placed between the lids of the operative eye and the Shahab LuxOR Revalia operating microscope was maneuvered into position. Newton scissors were then used to make a conjunctival buttonhole approximately 6mm posterior to the limbus in the inferonasal quadrant. Blunt dissection was carried out to expose bare sclera, and a blunt-tipped sub-tenon?s anesthesia cannula was introduced and passed posteriorly along the globe where non- preserved plain lidocaine was injected into posterior sub-Tenon?s space. A sideport knife was used to make a paracentesis port. Intraocular phenylephrine/lidocaine was injected into the anterior chamber. The anterior chamber was then filled with viscoelastic. A keratome knife was used construct a two-plane clear corneal tunnel extending 2.0mm into clear cornea. A flap was raised on the anterior capsule and capsulorhexis forceps were used to complete a continuous curvilinear capsulorhexis of 5.5 mm. Balanced salt solution was then used to perform cortical cleaving hydrodissection and nuclear hydrodelineation until the lens could be freely rotated within the capsular bag. The lens nucleus was then disassembled and removed within the capsular bag and iris plane using phacoemulsification. Residual cortical material was removed using the irrigation/aspiration handpiece. The posterior capsule was carefully polished to remove as much residual lens epithelial cells as safely possible. The capsular bag was then inflated and the anterior chamber deepened with viscoelastic. The lens implant described above was inserted into the capsular bag using the Shahab Autonome Injector. A Kuglen hook was used to dial the IOL into position. Residual viscoelastic was then removed first from posterior to the IOL, then from the anterior chamber using the I/A handpiece. The lens implant was noted to center nicely within the capsular bag. The incisions were stromally hydrated, and the anterior chamber was reformed using BSS. Then 0.5cc of moxifloxacin 1.0mg/ml were injected into the capsular bag and anterior chamber. The incisions were checked with a Weck spear and found to be secure. Several drops of ophthalmic povidone-iodine 5% were then applied to the eye followed by two drops of combination steroid/NSAID/antibiotic solution. The drapes were removed and a clear plastic protective eye shield was placed over the eye. The patient was then returned to Same Day Surgery in stable condition.
--- NOTE | 2023-12-08 13:45 | W.PM.DSUDISC ---
Date of service: 12/08/23 Time of Service: 13:45 Discharge Plan Disposition Patient Disposition: Home Discharge Details Attending Provider: Terrell Springer Primary Care Provider: Nayana Blankenship Home Meds and New Rx's Prescriptions: No Action ipratropium-albuterol 0.5 mg-3 mg(2.5 mg base)/3 mL solution for nebulization 3 ml inhalation QID PRN PRN (Reason: shortness of breath or wheezing) Qty: 540 8RF levalbuterol tartrate [Xopenex HFA] 45 mcg/actuation HFA aerosol inhaler 2 inh inhalation Q6H Qty: 15 6RF Breztri Aerosphere 160-9-4.8 mcg/actuation HFA aerosol inhaler 2 inh inhalation BID Qty: 10.7 12RF (DME) nebulizers Misc See Rx Instructions .ROUTE .MEDSUPPLY Qty: 1 Rx Instructions: As directed (DME) Oxygen Tank See Rx Instructions .ROUTE .MEDSUPPLY Qty: 1 Rx Instructions: As directed, nocturnal O2 2LPM calcium carbonate [Calcium 600] 600 mg calcium (1,500 mg) tablet 600 mg PO DAILY fexofenadine 180 mg tablet 180 mg PO DAILY sumatriptan succinate 100 mg tablet 100 mg PO ONCE azithromycin 250 mg tablet 250 mg PO DAILY Rx Instructions: start on day 2 of therapy meloxicam 15 mg tablet 15 mg PO DAILY ergocalciferol (vitamin D2) 50 mcg (2,000 unit) capsule 50 mcg PO .week donepezil [Aricept] 10 mg tablet 10 mg PO DAILY omeprazole 40 mg capsule,delayed release(DR/EC) 40 mg PO DAILY multivitamin Tablet 1 tab PO DAILY montelukast 10 mg tablet 10 mg PO DAILY fluticasone propionate 50 mcg/actuation spray,suspension 1 spray intranasal BID Rx Instructions: administer into each nostril amlodipine 10 mg tablet 10 mg PO DAILY furosemide 20 mg tablet 20 mg PO DAILY Benadryl Allergy 50 mg tablet 50 mg PO DIRECTED gabapentin 100 mg capsule 100 mg PO TID mirtazapine 15 mg tablet 15 mg PO QHS Jardiance 25 mg tablet 25 mg PO DAILY sertraline 100 mg tablet 100 mg PO DAILY sertraline 50 mg tablet 50 mg PO DIRECTED triamcinolone acetonide 0.1 % cream 1 applic topical BID buspirone 30 mg tablet 30 mg PO TID acetylcysteine 600 mg capsule 600 mg PO BID albuterol sulfate [Proventil HFA] 90 mcg/actuation HFA aerosol inhaler 2 puff inhalation DIRECTED Discharge Instructions Stand Alone Forms: [facility] Post-Op Cataract, Neris Vasquez ([facility]U) Discharge Orders Discharge Orders: Discharge Order (Routine); Ordered 12/08/23 Ordered By: Terrell Springer DS: Diagnosis Discharge Diagnosis (1) Nuclear age-related cataract, left eye: Status: Resolved
--- NOTE | 2023-12-08 13:56 | W.ANESPOSTOP ---
Postoperative Evaluation Date, Time and Location Date Performed: 12/08/23 Time Performed: 13:56 Patient Location: Day Surgery Unit Vital Signs Most Recent Imported Vital Signs: Most Recent Vital Signs Temp Pulse Resp BP Pulse Ox 36.6 C 62 18 141/76 H 95 12/08/23 13:42 12/08/23 13:42 12/08/23 13:42 12/08/23 13:42 12/08/23 13:42 Pain Score Most Recent Pain Score: Most Recent Pain Score Pain Level 0 12/08/23 13:42 Assessment Mental Status: Awake (Alert & Oriented to Patient Baseline) Airway and Respiratory Function: Patent airway with normal (patient baseline) respiratory exam Cardiovascular Function: Hemodynamically Stable Hydration Status: Adequately Hydrated Nausea & Vomiting: No Nausea or Vomiting Pain: Pt. Denies Any Pain Peripheral Nerve Block: Other (local by Dr. Springer)
== END 2023-12-08 14:10 | disposition home or self-care (01) ==
LOC: SUR 11:55
PROVIDERS: PCP Family Medicine; Visit Provider Ophthalmology
PROC: (CPT 66984; principal; 2023-12-08 15:30)
DX: H25.12 Age-related nuclear cataract, left eye (principal)
CPT/HCPCS: 66984; 00123; V2632; J2003

== ENCOUNTER 2023-12-15 06:11 | Day surgery (SDC) | payer OTHER, MEDICAID, SELFPAY ==
--- OUTSIDE RECORDS SUMMARY | 2023-12-15 06:12 | XMS_ITS ---
Author Organization Unknown Address [address] [place] [phone] Phone Care Team Providers Care Women'S Swim Coach Name Role Phone TEAGAN Kat Attending Unavailable CONI Castellanos Primary Unavailable Results NM MPI GROUP MPI SPECT EMELYMomo Castellanos F* - Completed: 07/22/2021 14:48 LOINC: STRESS AND REST SPECT MPI AR OTOCOL Clinical Diagnosis: Exertional shortness of breath, COPD, family h/o CAD Patient Dose ? Rest Patient Dose - Stress Exercise: LEXISCAN: X Dose: 0.4 mgm Above doses of [id number]-[id number]-[id number] were injected intravenously according to the usual protocol. Images of the heart were obtained with SPECT reconstruction. ViewNormal PerfusionTransient DefectMixed DefectFixed DefectShort [place] XVertical Long AxisXHorizontal Long AxisX Ejection Fraction: 59% SPECT Wall Motion: EDV: 72 ml ESV: 30 ml TRANSIENT ISCHEMIC DILATION (TID): 1.10 53/48 Conclusion: Normal SPECT MPI. Dictated by: HN ZAKIA FREY MD Transcribed by: ELGIN 07/27/21/07:19 [id number] Electronically Reviewed and Signed By: ZAKIA FREY MD 07/31/21 13:25 Copy for: CONI Castellanos via fax Copy for: 185 HEALTH INFORMATION MGMT Social History Type Status Start Date End Date Code Code Syst em Smoking History Former smoker 04/17/19981005 6188292 SNOMED CT Sex Female Medications Medication Start Date End Date Route Frequency Dose Code Code System Medication Instructions Home Meds Multivitamin Oral Tablet 06/25/2015 Unknown ORAL DAILY 1 TABLET 7972935 RxNorm TAKE 1 TABLET ORAL DAILY Acetaminophen 500MG Oral Tablet 11/15/2020 04/15/20 23 ORAL NEEDED 500 MILLIGRAMS 756642 RxNorm TAKE 500 MILLIGRAMS ORAL NEEDED Amitriptyline 25MG Oral Tablet 11/15/2020 04/15/20 23 ORAL EVERY EVENING 25 MILLIGRAMS 023405 RxNorm TAKE 25 MILLIGRAMS ORAL EVERY EVENING Azithromycin 250MG Oral Tablet 11/15/2020 04/15/20 23 ORAL DAILY 250 MILLIGRAMS 922716 RxNorm TAKE 250 MILLIGRAMS ORAL DAILY Calcium 600 MG Oral Tablet 11/15/2020 04/15/20 23 ORAL DAILY 600 MG 078039 RxNorm TAKE 600 MG ORAL DAILY Diclofenac Sodium 1% Topical application Gel/Jelly 11/15/2020 04/15/20 23 TOPICAL APPLICATI ON NEEDED TWICE DAILY 1 APPL 257986 RxNorm 1 APPL TOPICAL APPLICATIO N NEEDED TWICE DAILY Docusate Sodium 100MG Oral Capsule, Liquid Filled 11/15/2020 04/15/20 23 ORAL TWICE A DAY 100 MILLIGRAMS 1586605 RxNorm TAKE 100 MILLIGRAMS ORAL TWICE A DAY Donepezil HCl 10MG Oral Tablet 11/15/2020 Unknown ORAL DAILY 10 MILLIGRAMS 406998 RxNorm TAKE 10 MILLIGRAMS ORAL DAILY Fexofenadine HCl 180MG Oral Tablet 11/15/2020 Unknown ORAL DAILY 180 MILLIGRAMS 305158 RxNorm TAKE 180 MILLIGRAMS ORAL DAILY Fluticasone Propionate 0.05MG/Actuati on Nasal [place] 11/15/2020 04/15/20 23 NASAL TWICE A DAY 1 SPRAY 0519663 RxNorm SPRAY 1 SPRAY NASAL TWICE A DAY Ibuprofen 200MG Oral Tablet 11/15/2020 04/15/20 23 ORAL NEEDED TWICE DAILY 600 MILLIGRAMS 402816 RxNorm TAKE 600 MILLIGRAMS ORAL NEEDED TWICE DAILY Imitrex 100MG Oral Tablet 11/15/2020 04/15/20 23 ORAL NEEDED 100 MILLIGRAMS 147963 RxNorm TAKE 100 MILLIGRAMS ORAL NEEDED Ipratropium [place] rol Sulfate 0.5MG/3ML-3MG/ 3ML Inhalation Solution 11/15/2020 04/15/20 23 INHALATIO N NEEDED TWICE DAILY 1 UNIT 9115444 RxNorm 1 UNIT INHALATION NEEDED TWICE DAILY Melatonin 10 MG Oral Capsule 11/15/2020 04/15/20 23 ORAL BEDTIME 10 MG 851488 RxNorm TAKE 10 MG ORAL BEDTIME Mirtazapine 15MG Oral Tablet 11/15/2020 04/15/20 23 ORAL BEDTIME 15 MILLIGRAMS 124126 RxNorm TAKE 15 MILLIGRAMS ORAL BEDTIME Omeprazole 40MG Oral Capsule, Delayed Release 11/15/2020 Unknown ORAL DAILY 40 MILLIGRAMS 631250 RxNorm TAKE 40 MILLIGRAMS ORAL DAILY PARoxetine HCl 20MG Oral Tablet 11/15/2020 04/15/20 23 ORAL DAILY 20 MILLIGRAMS 3263295 RxNorm TAKE 20 MILLIGRAMS ORAL DAILY Senna 8.6MG Oral Tablet 11/15/2020 04/15/20 23 ORAL NEEDED AT BEDTIME 8.6 MILLIGRAMS 958936 RxNorm TAKE 8.6 MILLIGRAMS ORAL NEEDED AT BEDTIME Singulair 10MG Oral Tablet 11/15/2020 04/15/20 23 ORAL EVERY EVENING 10 MILLIGRAMS 166838 RxNorm TAKE 10 MILLIGRAMS ORAL EVERY EVENING Trelegy Ellipta NA Inhalation Powder 11/15/2020 04/15/20 23 INHALATIO N DAILY 1 PUFF 0961535 RxNorm 1 PUFF INHALATION DAILY Vitamin D 2000 IU Oral Tablet 11/15/2020 04/15/20 23 ORAL WEEKLY 2000 IU 058686 RxNorm TAKE 2000 IU ORAL WEEKLY amLODIPine Besylate 10MG Oral Tablet 11/15/2020 Unknown ORAL DAILY 10 MILLIGRAMS 149182 RxNorm TAKE 10 MILLIGRAMS ORAL DAILY busPIRone 10MG Oral Tablet 11/15/2020 Unknown ORAL THREE TIMES A DAY 20 MILLIGRAMS 904653 RxNorm TAKE 20 MILLIGRAMS ORAL THREE TIMES A DAY predniSONE 20MG Oral Tablet 11/15/2020 04/15/20 23 ORAL DAILY 3 TABLET 266145 RxNorm TAKE 3 TABLET ORAL DAILY LORazepam 0.5MG Oral Tablet 04/17/2023 Unknown ORAL EVERY 6 HOURS 1 TABLET 900107 RxNorm TAKE 1 TABLET ORAL EVERY 6 HOURS as needed anxiety Assessment You had the following problems:OBSTRUCTIVE CHRONIC BRONCHITIS WITH EXACERBATIONACUTE AND CHRONIC RESPIRATORY FAILURECOPDPLEURAL EFFUSION Hospital Discharge Instructions Should you have any questions prior to discharge, please contact a member of your healthcare team. If you have left the hospital and have any questions, please contact your primary care physician. Reason For Referral No Data Found Implants Implanted YOCASTA Status Assigning Authority Procedure Date Lot Number Serial Number Manufacturing Date Expiration Date Distinct ID Code Brand Name Model Number Total reverse shoulder prosthesis 0103 7003 8694 0507 1726 0408 21AD 5641 023 Active FDA [id number] 07/23/2025 FLEX SHOULD ER SYSTEM [id number] Total reverse shoulder prosthesis 0103 7003 8694 4543 1725 1213 21CZ 3920 3310 36 Active FDA [id number] 03/29/2025 Aequal is(TM) Ascend (TM) Flex [id number] Total reverse shoulder prosthesis 0103 7003 8694 1054 1725 1211 2191 19AV 009 Active FDA [id number] 09 03/27/2025 FLEX SHOULD ER SYSTEM [id number] Reverse shoulder prosthesis head 0100 8468 3206 1891 1726 0325 21CZ 5121 0570 10 Active FDA [id number] 07/09/2025 AEQUAL IS(TM) PerFOR M Revers ed [id number] Reverse shoulder prosthesis base plate 0100 8468 3206 1884 1726 0611 2174 89AW 015 Active FDA [id number] 09/25/2025 AEQUAL IS(TM) PerFOR M Revers ed [id number] Orthopaedi c bone screw, non-bioabs orbable, sterile 0100 8468 3206 2072 1726 0107 2132 33AW 004 Active FDA [id number] 04/23/2025 AEQUAL IS(TM) PerFOR M Revers ed [id number] Problems Problem Start Date Resolved Date Status Code Code System OBSTRUCTIVE CHRONIC BRONCHITIS WITH EXACERBATION active 061825348 SNOMED-CT ACUTE AND CHRONIC RESPIRATOR Y FAILURE active 42742285 SNOMED-CT COPD active 18549365 SNOMED-CT PLEURAL EFFUSION active 11598237 SNO MED-CT HEMOPTYSIS, UNSPECIFIED 11/13/2020 resolved 27050 005 SNOMED-CT SEPTICEMIA NOS 11/13/2020 resolved SNOM ED-CT OTHER AND UNSPECIFIED HYPERLIPIDEMIA 11/13/2020 resolved 68237302 SNOMED-CT LUMBAGO 11/13/2020 resolved 305403152 SNOMED-CT TRANSIENT ALTERED MENTAL STATUS 11/13/2020 resolved 340032520 SNOMED-CT CANDIDIASIS OF MOUTH 11/13/2020 resolved 72019732 SNOMED-CT CLOSED FRACTURE OF ONE RIB 11/13/2020 resolved 45 948284 SNOMED-CT PNEUMONIA 11/13/2020 resolved SNOMED-CT HYPOSMOLALITY AND/OR HYPONATREMIA 11/13/2020 resolved 409723319 SNOMED-CT Allergies and Adverse Reactions Allergy Substance Reaction Severity Start Date Concern Status Code Code System TRAZODONE Hallucinations (SNOMED-CT: 6822109) Moderate Active 59164 RxNorm LISINOPRIL Cough (SNOMED-CT: 17991571) Active 48264 RxNorm FOSAMAX Moderate Active 095153 RxNorm Plan of Treatment Pre-Op Testing 11/06/2020 Pre-Op Covid-19 Testing 03/21/2020 BONE DENSITY DEXA SPINE & HIP PRE-OP COVID-19 TESTING 01/10/2022 MM SCREEN BILAT 10/22/2021 CT CHEST W/O CONTRAST 05/31/2021 NM MPI STR/RST 07/22/2021 Encounters Encounter Diagnosis Start Date Code Code Sys tem Other chest pain 07/22/2021 SNOMED-CT Personal Care Team Section Performer Name Performer Role Active Date Inactive Da te
--- OUTSIDE RECORDS SUMMARY | 2023-12-15 06:13 | XMS_ITS ---
Author Organization Unknown Address [address] [place] [phone] Phone Care Team Providers Care Personal Financial Representative Name Role Phone CORTES Barr Attending Unavailable CONI Castellanos Primary Unavailable Social History Type Status Start Date End Date Code Code Syst em Smoking History Former smoker 04/17/19980851 3903635 SNOMED CT Sex Female Medications Medication Start Date End Date Route Frequency Dose Code Code System Medication Instructions Home Meds Multivitamin Oral Tablet 06/25/2015 Unknown ORAL DAILY 1 TABLET 8846382 RxNorm TAKE 1 TABLET ORAL DAILY Acetaminophen 500MG Oral Tablet 11/15/2020 04/15/20 23 ORAL NEEDED 500 MILLIGRAMS 964736 RxNorm TAKE 500 MILLIGRAMS ORAL NEEDED Amitriptyline 25MG Oral Tablet 11/15/2020 04/15/20 23 ORAL EVERY EVENING 25 MILLIGRAMS 701758 RxNorm TAKE 25 MILLIGRAMS ORAL EVERY EVENING Azithromycin 250MG Oral Tablet 11/15/2020 04/15/20 23 ORAL DAILY 250 MILLIGRAMS 074220 RxNorm TAKE 250 MILLIGRAMS ORAL DAILY Calcium 600 MG Oral Tablet 11/15/2020 04/15/20 23 ORAL DAILY 600 MG 975312 RxNorm TAKE 600 MG ORAL DAILY Diclofenac Sodium 1% Topical application Gel/Jelly 11/15/2020 04/15/20 23 TOPICAL APPLICATI ON NEEDED TWICE DAILY 1 APPL 106403 RxNorm 1 APPL TOPICAL APPLICATIO N NEEDED TWICE DAILY Docusate Sodium 100MG Oral Capsule, Liquid Filled 11/15/2020 04/15/20 23 ORAL TWICE A DAY 100 MILLIGRAMS 0749487 RxNorm TAKE 100 MILLIGRAMS ORAL TWICE A DAY Donepezil HCl 10MG Oral Tablet 11/15/2020 Unknown ORAL DAILY 10 MILLIGRAMS 397297 RxNorm TAKE 10 MILLIGRAMS ORAL DAILY Fexofenadine HCl 180MG Oral Tablet 11/15/2020 Unknown ORAL DAILY 180 MILLIGRAMS 423265 RxNorm TAKE 180 MILLIGRAMS ORAL DAILY Fluticasone Propionate 0.05MG/Actuati on Nasal [place] 11/15/2020 04/15/20 23 NASAL TWICE A DAY 1 SPRAY 4520572 RxNorm SPRAY 1 SPRAY NASAL TWICE A DAY Ibuprofen 200MG Oral Tablet 11/15/2020 04/15/20 23 ORAL NEEDED TWICE DAILY 600 MILLIGRAMS 346967 RxNorm TAKE 600 MILLIGRAMS ORAL NEEDED TWICE DAILY Imitrex 100MG Oral Tablet 11/15/2020 04/15/20 23 ORAL NEEDED 100 MILLIGRAMS 562911 RxNorm TAKE 100 MILLIGRAMS ORAL NEEDED Ipratropium [place] rol Sulfate 0.5MG/3ML-3MG/ 3ML Inhalation Solution 11/15/2020 04/15/20 23 INHALATIO N NEEDED TWICE DAILY 1 UNIT 7497405 RxNorm 1 UNIT INHALATION NEEDED TWICE DAILY Melatonin 10 MG Oral Capsule 11/15/2020 04/15/20 23 ORAL BEDTIME 10 MG 126447 RxNorm TAKE 10 MG ORAL BEDTIME Mirtazapine 15MG Oral Tablet 11/15/2020 04/15/20 23 ORAL BEDTIME 15 MILLIGRAMS 521344 RxNorm TAKE 15 MILLIGRAMS ORAL BEDTIME Omeprazole 40MG Oral Capsule, Delayed Release 11/15/2020 Unknown ORAL DAILY 40 MILLIGRAMS 010622 RxNorm TAKE 40 MILLIGRAMS ORAL DAILY PARoxetine HCl 20MG Oral Tablet 11/15/2020 04/15/20 23 ORAL DAILY 20 MILLIGRAMS 1008991 RxNorm TAKE 20 MILLIGRAMS ORAL DAILY Senna 8.6MG Oral Tablet 11/15/2020 04/15/20 23 ORAL NEEDED AT BEDTIME 8.6 MILLIGRAMS 013641 RxNorm TAKE 8.6 MILLIGRAMS ORAL NEEDED AT BEDTIME Singulair 10MG Oral Tablet 11/15/2020 04/15/20 23 ORAL EVERY EVENING 10 MILLIGRAMS 310250 RxNorm TAKE 10 MILLIGRAMS ORAL EVERY EVENING Trelegy Ellipta NA Inhalation Powder 11/15/2020 04/15/20 23 INHALATIO N DAILY 1 PUFF 2281732 RxNorm 1 PUFF INHALATION DAILY Vitamin D 2000 IU Oral Tablet 11/15/2020 04/15/20 23 ORAL WEEKLY 2000 IU 616167 RxNorm TAKE 2000 IU ORAL WEEKLY amLODIPine Besylate 10MG Oral Tablet 11/15/2020 Unknown ORAL DAILY 10 MILLIGRAMS 099455 RxNorm TAKE 10 MILLIGRAMS ORAL DAILY busPIRone 10MG Oral Tablet 11/15/2020 Unknown ORAL THREE TIMES A DAY 20 MILLIGRAMS 042510 RxNorm TAKE 20 MILLIGRAMS ORAL THREE TIMES A DAY predniSONE 20MG Oral Tablet 11/15/2020 04/15/20 23 ORAL DAILY 3 TABLET 457641 RxNorm TAKE 3 TABLET ORAL DAILY LORazepam 0.5MG Oral Tablet 04/17/2023 Unknown ORAL EVERY 6 HOURS 1 TABLET 734147 RxNorm TAKE 1 TABLET ORAL EVERY 6 [...] 1726 0408 21AD 5641 023 Active FDA [id number] 23 07/23/2025 FLEX SHOULD ER SYSTEM [id number] Total reverse shoulder prosthesis 0103 7003 8694 4543 1725 1213 21CZ 3920 3310 36 Active FDA [id number] 03/29/2025 Aequal is(TM) Ascend (TM) Flex [id number] Total reverse shoulder prosthesis 0103 7003 8694 1054 1725 1211 2191 19AV 009 Active FDA [id number] 09 03/27/2025 FLEX SHOULD ER SYSTEM [id number] Reverse shoulder prosthesis head 0100 8468 3206 1891 1726 0325 21CZ 5121 0570 10 Active FDA [id number] 72623 07/09/2025 AEQUAL IS(TM) PerFOR M Revers ed [id number] Reverse shoulder prosthesis base plate 0100 8468 3206 1884 1726 0611 2174 89AW 015 Active FDA [id number] W015 09/25/2025 AEQUAL IS(TM) PerFOR M Revers ed [id number] Orthopaedi c bone screw, non-bioabs orbable, sterile 0100 8468 3206 2072 1726 0107 2132 33AW 004 Active FDA [id number] 04 04/23/2025 AEQUAL IS(TM) PerFOR M Revers ed [id number] Problems Problem Start Date Resolved Date Status Code Code System OBSTRUCTIVE CHRONIC BRONCHITIS WITH EXACERBATION active 397283457 SNOMED-CT ACUTE AND CHRONIC RESPIRATOR Y FAILURE active 95637316 SNOMED-CT COPD active 41112227 SNOMED-CT PLEURAL EFFUSION active 27752684 SNO MED-CT HEMOPTYSIS, UNSPECIFIED 11/13/2020 resolved 98677 005 SNOMED-CT SEPTICEMIA NOS 11/13/2020 resolved SNOM ED-CT OTHER AND UNSPECIFIED HYPERLIPIDEMIA 11/13/2020 resolved 41352941 SNOMED-CT LUMBAGO 11/13/2020 resolved 007016003 SNOMED-CT TRANSIENT ALTERED MENTAL STATUS 11/13/2020 resolved 961803687 SNOMED-CT CANDIDIASIS OF MOUTH 11/13/2020 resolved 70278092 SNOMED-CT CLOSED FRACTURE OF ONE RIB 11/13/2020 resolved 45 567479 SNOMED-CT PNEUMONIA 11/13/2020 resolved SNOMED-CT HYPOSMOLALITY AND/OR HYPONATREMIA 11/13/2020 resolved 086285407 SNOMED-CT Allergies and Adverse Reactions Allergy Substance Reaction Severity Start Date Concern Status Code Code System TRAZODONE Hallucinations (SNOMED-CT: 1286979) Moderate Active 99260 RxNorm LISINOPRIL Cough (SNOMED-CT: 60792434) Active 61584 RxNorm FOSAMAX Moderate Active 448054 RxNorm Plan of Treatment Pre-Op Testing 11/06/2020 Pre-Op Covid-19 Testing 03/21/2020 BONE DENSITY DEXA SPINE & HIP 3 PRE-OP COVID-19 TESTING 01/10/2022 MM SCREEN BILAT 10/22/2021 CT CHEST W/O CONTRAST 05/31/2021 NM MPI STR/RST 07/22/2021 Encounters Encounter Diagnosis Start Date Code Code Sys tem Refusal of treatment by patient 09/28/2021 [id number] SNOMED-CT Personal Care Team Section Performer Name Performer Role Active Date Inactive Da te
--- OUTSIDE RECORDS SUMMARY | 2023-12-15 06:13 | XMS_ITS ---
Author Organization Unknown Address [address] [place] [address] [phone] Phone Care Team Providers Care Power Station Operator Name Role Phone CONI Castellanos Attending Unavailable Results MM SCREENING BILAT MAMMO W T MARY W CAD - Completed: 10/22/2021 11:26 LOINC: Digital mammograms were inte rpreted according to the usual protocol including computer analysis with CADx system including tomosynthesis. SCREENING MAMMOGRAM: Both CC and MLO views of both breasts were performed. There are no previous for comparison (2009). There are no spiculated masses nor malignant appearing microcalcification groups in either breast. No significant architectural distortion nor skin thickening/retraction. IMPRESSION: No radiographic evidence of malignancy. BI-RADS Assessment: Category 1. Negative. BREAST DENSITY: b. There are scattered areas of fibroglandular density. TECHNOLOGIST: Louise Blair, RT (R) Dictated by: MEREDITH FREY MD Transcribed by: KEYLA 10/23/21/17:32 [id number] Electronically Reviewed and Signed By: ZAKIA FREY MD 10/24/21 20:45 Copy for: CONI Castellanos via fax Copy for: 185 HEALTH INFORMATION MGMT Social History Type Status Start Date End Date Code Code Syst em Smoking History Former smoker 04/17/19989375 9742826 SNOMED CT Sex Female Medications Medication Start Date End Date Route Frequency Dose Code Code System Medication Instructions Home Meds Multivitamin Oral Tablet 06/25/2015 Unknown ORAL DAILY 1 TABLET 7669623 RxNorm TAKE 1 TABLET ORAL DAILY Acetaminophen 500MG Oral Tablet 11/15/2020 04/15/20 23 ORAL NEEDED 500 MILLIGRAMS 872182 RxNorm TAKE 500 MILLIGRAMS ORAL NEEDED Amitriptyline 25MG Oral Tablet 11/15/2020 04/15/20 23 ORAL EVERY EVENING 25 MILLIGRAMS 919689 RxNorm TAKE 25 MILLIGRAMS ORAL EVERY EVENING Azithromycin 250MG Oral Tablet 11/15/2020 04/15/20 23 ORAL DAILY 250 MILLIGRAMS 380260 RxNorm TAKE 250 MILLIGRAMS ORAL DAILY Calcium 600 MG Oral Tablet 11/15/2020 04/15/20 23 ORAL DAILY 600 MG 114399 RxNorm TAKE 600 MG ORAL DAILY Diclofenac Sodium 1% Topical application Gel/Jelly 11/15/2020 04/15/20 23 TOPICAL APPLICATI ON NEEDED TWICE DAILY 1 APPL 661020 RxNorm 1 APPL TOPICAL APPLICATIO N NEEDED TWICE DAILY Docusate Sodium 100MG Oral Capsule, Liquid Filled 11/15/2020 04/15/20 23 ORAL TWICE A DAY 100 MILLIGRAMS 3290382 RxNorm TAKE 100 MILLIGRAMS ORAL TWICE A DAY Donepezil HCl 10MG Oral Tablet 11/15/2020 Unknown ORAL DAILY 10 MILLIGRAMS 040699 RxNorm TAKE 10 MILLIGRAMS ORAL DAILY Fexofenadine HCl 180MG Oral Tablet 11/15/2020 Unknown ORAL DAILY 180 MILLIGRAMS 219288 RxNorm TAKE 180 MILLIGRAMS ORAL DAILY Fluticasone Propionate 0.05MG/Actuati on Nasal [place] 11/15/2020 04/15/20 23 NASAL TWICE A DAY 1 SPRAY 7314029 RxNorm SPRAY 1 SPRAY NASAL TWICE A DAY Ibuprofen 200MG Oral Tablet 11/15/2020 04/15/20 23 ORAL NEEDED TWICE DAILY 600 MILLIGRAMS 533300 RxNorm TAKE 600 MILLIGRAMS ORAL NEEDED TWICE DAILY Imitrex 100MG Oral Tablet 11/15/2020 04/15/20 23 ORAL NEEDED 100 MILLIGRAMS 792983 RxNorm TAKE 100 MILLIGRAMS ORAL NEEDED Ipratropium [place] rol Sulfate 0.5MG/3ML-3MG/ 3ML Inhalation Solution 11/15/2020 04/15/20 23 INHALATIO N NEEDED TWICE DAILY 1 UNIT 1721446 RxNorm 1 UNIT INHALATION NEEDED TWICE DAILY Melatonin 10 MG Oral Capsule 11/15/2020 04/15/20 23 ORAL BEDTIME 10 MG 419927 RxNorm TAKE 10 MG ORAL BEDTIME Mirtazapine 15MG Oral Tablet 11/15/2020 04/15/20 23 ORAL BEDTIME 15 MILLIGRAMS 396637 RxNorm TAKE 15 MILLIGRAMS ORAL BEDTIME Omeprazole 40MG Oral Capsule, Delayed Release 11/15/2020 Unknown ORAL DAILY 40 MILLIGRAMS 659845 RxNorm TAKE 40 MILLIGRAMS ORAL DAILY PARoxetine HCl 20MG Oral Tablet 11/15/2020 04/15/20 23 ORAL DAILY 20 MILLIGRAMS 5449606 RxNorm TAKE 20 MILLIGRAMS ORAL DAILY Senna 8.6MG Oral Tablet 11/15/2020 04/15/20 23 ORAL NEEDED AT BEDTIME 8.6 MILLIGRAMS 225298 RxNorm TAKE 8.6 MILLIGRAMS ORAL NEEDED AT BEDTIME Singulair 10MG Oral Tablet 11/15/2020 04/15/20 23 ORAL EVERY EVENING 10 MILLIGRAMS 137874 RxNorm TAKE 10 MILLIGRAMS ORAL EVERY EVENING Trelegy Ellipta NA Inhalation Powder 11/15/2020 04/15/20 23 INHALATIO N DAILY 1 PUFF 8058317 RxNorm 1 PUFF INHALATION DAILY Vitamin D 2000 IU Oral Tablet 11/15/2020 04/15/20 23 ORAL WEEKLY 2000 IU 332109 RxNorm TAKE 2000 IU ORAL WEEKLY amLODIPine Besylate 10MG Oral Tablet 11/15/2020 Unknown ORAL DAILY 10 MILLIGRAMS 684384 RxNorm TAKE 10 MILLIGRAMS ORAL DAILY busPIRone 10MG Oral Tablet 11/15/2020 Unknown ORAL THREE TIMES A DAY 20 MILLIGRAMS 068762 RxNorm TAKE 20 MILLIGRAMS ORAL THREE TIMES A DAY predniSONE 20MG Oral Tablet 11/15/2020 04/15/20 23 ORAL DAILY 3 TABLET 418707 RxNorm TAKE 3 TABLET ORAL DAILY LORazepam 0.5MG Oral Tablet 04/17/2023 Unknown ORAL EVERY 6 HOURS 1 TABLET 157183 RxNorm TAKE 1 TABLET ORAL EVERY 6 [...] 1726 0408 21AD 5641 023 Active FDA [id number] 23 07/23/2025 FLEX SHOULD ER SYSTEM [id number] Total reverse shoulder prosthesis 0103 7003 8694 4543 1725 1213 21CZ 3920 3310 36 Active FDA [id number] 03/29/2025 Aequal is(TM) Ascend (TM) Flex [id number] Total reverse shoulder prosthesis 0103 7003 8694 1054 1725 1211 2191 19AV 009 Active FDA [id number] 09 03/27/2025 FLEX SHOULD ER SYSTEM [id number] Reverse shoulder prosthesis head 0100 8468 3206 1891 1726 0325 21CZ 5121 0570 10 Active FDA [id number] 07/09/2025 AEQUAL IS(TM) PerFOR M Revers ed [id number] Reverse shoulder prosthesis base plate 0100 8468 3206 1884 1726 0611 2174 89AW 015 Active FDA [id number] W015 09/25/2025 AEQUAL IS(TM) PerFOR M Revers ed [id number] Orthopaedi c bone screw, non-bioabs orbable, sterile 0100 8468 3206 2072 1726 0107 2132 33AW 004 Active FDA [id number] 04 04/23/2025 AEQUAL IS(TM) PerFOR M Revers ed [id number] Problems Problem Start Date Resolved Date Status Code Code System OBSTRUCTIVE CHRONIC BRONCHITIS WITH EXACERBATION active 489851929 SNOMED-CT ACUTE AND CHRONIC RESPIRATOR Y FAILURE active 19564490 SNOMED-CT COPD active 46242783 SNOMED-CT PLEURAL EFFUSION active 07197687 SNO MED-CT HEMOPTYSIS, UNSPECIFIED 11/13/2020 resolved 96416 005 SNOMED-CT SEPTICEMIA NOS 11/13/2020 resolved SNOM ED-CT OTHER AND UNSPECIFIED HYPERLIPIDEMIA 11/13/2020 resolved 62302541 SNOMED-CT LUMBAGO 11/13/2020 resolved 437146779 SNOMED-CT TRANSIENT ALTERED MENTAL STATUS 11/13/2020 resolved 013803651 SNOMED-CT CANDIDIASIS OF MOUTH 11/13/2020 resolved 51595003 SNOMED-CT CLOSED FRACTURE OF ONE RIB 11/13/2020 resolved 45 290101 SNOMED-CT PNEUMONIA 11/13/2020 resolved SNOMED-CT HYPOSMOLALITY AND/OR HYPONATREMIA 11/13/2020 resolved 886050178 SNOMED-CT Allergies and Adverse Reactions Allergy Substance Reaction Severity Start Date Concern Status Code Code System TRAZODONE Hallucinations (SNOMED-CT: 9735735) Moderate Active 41678 RxNorm LISINOPRIL Cough (SNOMED-CT: 36603655) Active 47201 RxNorm FOSAMAX Moderate Active 068609 RxNorm Plan of Treatment Pre-Op Testing 11/06/2020 Pre-Op Covid-19 Testing 03/21/2020 BONE DENSITY DEXA SPINE & HIP 3 PRE-OP COVID-19 TESTING 01/10/2022 MM SCREEN BILAT 10/22/2021 CT CHEST W/O CONTRAST 05/31/2021 NM MPI STR/RST 07/22/2021 Encounters Encounter Diagnosis Start Date Code Code Sys tem Encounter for screening mamm ogram for malignant neoplasm of breast 10/22/2021 SNOMED-CT Personal Care Team Section Performer Name Performer Role Active Date Inactive Da te
--- OUTSIDE RECORDS SUMMARY | 2023-12-15 06:13 | XMS_ITS ---
Author Organization Unknown Address [address] [place] [address] [phone] Phone Care Team Providers Care Retail And Promotions Coordinator Name Role Phone CONI Castellanos Attending Unavailable Results CT LDCT FOR LUNG CA SCREEN - Completed: 05/31/2021 17:59 LOINC: Radiation optimization:?? Al l CT scans at this facility use at least one of these dose optimization techniques: automated exposure control; mA and/or kV adjustment per patient size (includes targeted exams where dose is matched to clinical indication); or iterative reconstruction. LOW DOSE CT SCAN OF THE CHEST: Comparison examination is 11/13/2020 and 11/21/2020. There is artifact in the shoulders secondary to the patient's bilateral shoulder replacements. The trachea is grossly unremarkable. Emphysematous changes are present in the lungs. No pulmonary nodules are present. No acute infiltrates are seen. There is no pleural effusion or pneumothorax. Scattered areas of scarring or atelectasis are seen in the lungs. The visualized thyroid gland is unremarkable. No significant thoracic adenopathy is seen on this noncontrast examination. The esophagus is unremarkable. Heart size is within normal limits. Coronary artery calcifications are present. There is atherosclerosis of the thoracic aorta, but no aneurysmal dilatation. The soft tissues are unremarkable. There are old bilateral united and non-united fractures. Degenerative changes are present in the spine. Old mid thoracic compression fracture deformities are again seen. IMPRESSION: No pulmonary nodules. Lung-RADS 1. Negative. Continue annual screening with LDCT in 12 months. Dictated by: OLIVIA ROSENBAUM MD Transcribed by: KEYLA 05/31/2114:57 [id number] Electronically Reviewed and Signed By: OBED ROSENBAUM MD 02/14/22 15:45 Copy for: 185 HEALTH INFORMATION MGMT Social History Type Status Start Date End Date Code Code Syst em Smoking History Former smoker 04/17/19986501 4075793 SNOMED CT Sex Female Medications Medication Start Date End Date Route Frequency Dose Code Code System Medication Instructions Home Meds Multivitamin Oral Tablet 06/25/2015 Unknown ORAL DAILY 1 TABLET 3420094 RxNorm TAKE 1 TABLET ORAL DAILY Acetaminophen 500MG Oral Tablet 11/15/2020 04/15/20 23 ORAL NEEDED 500 MILLIGRAMS 357613 RxNorm TAKE 500 MILLIGRAMS ORAL NEEDED Amitriptyline 25MG Oral Tablet 11/15/2020 04/15/20 23 ORAL EVERY EVENING 25 MILLIGRAMS 025982 RxNorm TAKE 25 MILLIGRAMS ORAL EVERY EVENING Azithromycin 250MG Oral Tablet 11/15/2020 04/15/20 23 ORAL DAILY 250 MILLIGRAMS 653420 RxNorm TAKE 250 MILLIGRAMS ORAL DAILY Calcium 600 MG Oral Tablet 11/15/2020 04/15/20 23 ORAL DAILY 600 MG 616805 RxNorm TAKE 600 MG ORAL DAILY Diclofenac Sodium 1% Topical application Gel/Jelly 11/15/2020 04/15/20 23 TOPICAL APPLICATI ON NEEDED TWICE DAILY 1 APPL 822270 RxNorm 1 APPL TOPICAL APPLICATIO N NEEDED TWICE DAILY Docusate Sodium 100MG Oral Capsule, Liquid Filled 11/15/2020 04/15/20 23 ORAL TWICE A DAY 100 MILLIGRAMS 1268022 RxNorm TAKE 100 MILLIGRAMS ORAL TWICE A DAY Donepezil HCl 10MG Oral Tablet 11/15/2020 Unknown ORAL DAILY 10 MILLIGRAMS 177022 RxNorm TAKE 10 MILLIGRAMS ORAL DAILY Fexofenadine HCl 180MG Oral Tablet 11/15/2020 Unknown ORAL DAILY 180 MILLIGRAMS 453402 RxNorm TAKE 180 MILLIGRAMS ORAL DAILY Fluticasone Propionate 0.05MG/Actuati on Nasal [place] 11/15/2020 04/15/20 23 NASAL TWICE A DAY 1 SPRAY 1853290 RxNorm SPRAY 1 SPRAY NASAL TWICE A DAY Ibuprofen 200MG Oral Tablet 11/15/2020 04/15/20 23 ORAL NEEDED TWICE DAILY 600 MILLIGRAMS 842987 RxNorm TAKE 600 MILLIGRAMS ORAL NEEDED TWICE DAILY Imitrex 100MG Oral Tablet 11/15/2020 04/15/20 23 ORAL NEEDED 100 MILLIGRAMS 471351 RxNorm TAKE 100 MILLIGRAMS ORAL NEEDED Ipratropium [place] rol Sulfate 0.5MG/3ML-3MG/ 3ML Inhalation Solution 11/15/2020 04/15/20 23 INHALATIO N NEEDED TWICE DAILY 1 UNIT 7030183 RxNorm 1 UNIT INHALATION NEEDED TWICE DAILY Melatonin 10 MG Oral Capsule 11/15/2020 04/15/20 23 ORAL BEDTIME 10 MG 769385 RxNorm TAKE 10 MG ORAL BEDTIME Mirtazapine 15MG Oral Tablet 11/15/2020 04/15/20 23 ORAL BEDTIME 15 MILLIGRAMS 975203 RxNorm TAKE 15 MILLIGRAMS ORAL BEDTIME Omeprazole 40MG Oral Capsule, Delayed Release 11/15/2020 Unknown ORAL DAILY 40 MILLIGRAMS 853499 RxNorm TAKE 40 MILLIGRAMS ORAL DAILY PARoxetine HCl 20MG Oral Tablet 11/15/2020 04/15/20 23 ORAL DAILY 20 MILLIGRAMS 9289018 RxNorm TAKE 20 MILLIGRAMS ORAL DAILY Senna 8.6MG Oral Tablet 11/15/2020 04/15/20 23 ORAL NEEDED AT BEDTIME 8.6 MILLIGRAMS 156012 RxNorm TAKE 8.6 MILLIGRAMS ORAL NEEDED AT BEDTIME Singulair 10MG Oral Tablet 11/15/2020 04/15/20 23 ORAL EVERY EVENING 10 MILLIGRAMS 266991 RxNorm TAKE 10 MILLIGRAMS ORAL EVERY EVENING Trelegy Ellipta NA Inhalation Powder 11/15/2020 04/15/20 23 INHALATIO N DAILY 1 PUFF 3883034 RxNorm 1 PUFF INHALATION DAILY Vitamin D 2000 IU Oral Tablet 11/15/2020 04/15/20 23 ORAL WEEKLY 2000 IU 825776 RxNorm TAKE 2000 IU ORAL WEEKLY amLODIPine Besylate 10MG Oral Tablet 11/15/2020 Unknown ORAL DAILY 10 MILLIGRAMS 710961 RxNorm TAKE 10 MILLIGRAMS ORAL DAILY busPIRone 10MG Oral Tablet 11/15/2020 Unknown ORAL THREE TIMES A DAY 20 MILLIGRAMS 811341 RxNorm TAKE 20 MILLIGRAMS ORAL THREE TIMES A DAY predniSONE 20MG Oral Tablet 11/15/2020 04/15/20 23 ORAL DAILY 3 TABLET 732652 RxNorm TAKE 3 TABLET ORAL DAILY LORazepam 0.5MG Oral Tablet 04/17/2023 Unknown ORAL EVERY 6 HOURS 1 TABLET RxNorm TAKE 1 TABLET ORAL EVERY 6 [...] 1726 0408 21AD 5641 023 Active FDA [id number] 07/23/2025 FLEX SHOULD ER SYSTEM [id number] Total reverse shoulder prosthesis 0103 7003 8694 4543 1725 1213 21CZ 3920 3310 36 Active FDA [id number] 14078 03/29/2025 Aequal is(TM) Ascend (TM) Flex [id number] Total reverse shoulder prosthesis 0103 7003 8694 1054 1725 1211 2191 19AV 009 Active FDA [id number] 09 03/27/2025 FLEX SHOULD ER SYSTEM [id number] Reverse shoulder prosthesis head 0100 8468 3206 1891 1726 0325 21CZ 5121 0570 10 Active FDA [id number] 73619 07/09/2025 AEQUAL IS(TM) PerFOR M Revers ed [id number] Reverse shoulder prosthesis base plate 0100 8468 3206 1884 1726 0611 2174 89AW 015 Active FDA [id number] W015 09/25/2025 AEQUAL IS(TM) PerFOR M Revers ed [id number] Orthopaedi c bone screw, non-bioabs orbable, sterile 0100 8468 3206 2072 1726 0107 2132 33AW 004 Active FDA [id number] 04 04/23/2025 AEQUAL IS(TM) PerFOR M Revers ed [id number] Problems Problem Start Date Resolved Date Status Code Code System OBSTRUCTIVE CHRONIC BRONCHITIS WITH EXACERBATION active 297895193 SNOMED-CT ACUTE AND CHRONIC RESPIRATOR Y FAILURE active 34178375 SNOMED-CT COPD active 04647150 SNOMED-CT PLEURAL EFFUSION active 69730218 SNO MED-CT HEMOPTYSIS, UNSPECIFIED 11/13/2020 resolved 86655 005 SNOMED-CT SEPTICEMIA NOS 11/13/2020 resolved SNOM ED-CT OTHER AND UNSPECIFIED HYPERLIPIDEMIA 11/13/2020 resolved 00913519 SNOMED-CT LUMBAGO 11/13/2020 resolved 996170838 SNOMED-CT TRANSIENT ALTERED MENTAL STATUS 11/13/2020 resolved 089672792 SNOMED-CT CANDIDIASIS OF MOUTH 11/13/2020 resolved 71659950 SNOMED-CT CLOSED FRACTURE OF ONE RIB 11/13/2020 resolved 45 359763 SNOMED-CT PNEUMONIA 11/13/2020 resolved SNOMED-CT HYPOSMOLALITY AND/OR HYPONATREMIA 11/13/2020 resolved 362049092 SNOMED-CT Allergies and Adverse Reactions Allergy Substance Reaction Severity Start Date Concern Status Code Code System TRAZODONE Hallucinations (SNOMED-CT: 6716001) Moderate Active 01531 RxNorm LISINOPRIL Cough (SNOMED-CT: 58116560) Active 41180 RxNorm FOSAMAX Moderate Active 687988 RxNorm Plan of Treatment Pre-Op Testing 11/06/2020 Pre-Op Covid-19 Testing 03/21/2020 BONE DENSITY DEXA SPINE & HIP 3 PRE-OP COVID-19 TESTING 01/10/2022 MM SCREEN BILAT 10/22/2021 CT CHEST W/O CONTRAST 05/31/2021 NM MPI STR/RST 07/22/2021 Encounters Encounter Diagnosis Start Date Code Code Sys tem Screening for malignant neop lasm of respiratory tract 05/31/2021 556592395 SNOMED-CT Personal Care Team Section Performer Name Performer Role Active Date Inactive Da te
--- OUTSIDE RECORDS SUMMARY | 2023-12-15 06:13 | XMS_ITS ---
Author Organization Unknown Address [address] [place] [address] [phone] Phone Care Team Providers Care Spinner Box Name Role Phone PINEDA Latham Attending Unavailable CONI Castellanos Primary Unavailable Social History Type Status Start Date End Date Code Code Syst em Smoking History Former smoker 04/17/19989229 4925580 SNOMED CT Sex Female Medications Medication Start Date End Date Route Frequency Dose Code Code System Medication Instructions Home Meds Multivitamin Oral Tablet 06/25/2015 Unknown ORAL DAILY 1 TABLET 8571729 RxNorm TAKE 1 TABLET ORAL DAILY Acetaminophen 500MG Oral Tablet 11/15/2020 04/15/20 23 ORAL NEEDED 500 MILLIGRAMS 960213 RxNorm TAKE 500 MILLIGRAMS ORAL NEEDED Amitriptyline 25MG Oral Tablet 11/15/2020 04/15/20 23 ORAL EVERY EVENING 25 MILLIGRAMS 383893 RxNorm TAKE 25 MILLIGRAMS ORAL EVERY EVENING Azithromycin 250MG Oral Tablet 11/15/2020 04/15/20 23 ORAL DAILY 250 MILLIGRAMS 713866 RxNorm TAKE 250 MILLIGRAMS ORAL DAILY Calcium 600 MG Oral Tablet 11/15/2020 04/15/20 23 ORAL DAILY 600 MG 013834 RxNorm TAKE 600 MG ORAL DAILY Diclofenac Sodium 1% Topical application Gel/Jelly 11/15/2020 04/15/20 23 TOPICAL APPLICATI ON NEEDED TWICE DAILY 1 APPL 791278 RxNorm 1 APPL TOPICAL APPLICATIO N NEEDED TWICE DAILY Docusate Sodium 100MG Oral Capsule, Liquid Filled 11/15/2020 04/15/20 23 ORAL TWICE A DAY 100 MILLIGRAMS 7454238 RxNorm TAKE 100 MILLIGRAMS ORAL TWICE A DAY Donepezil HCl 10MG Oral Tablet 11/15/2020 Unknown ORAL DAILY 10 MILLIGRAMS 138517 RxNorm TAKE 10 MILLIGRAMS ORAL DAILY Fexofenadine HCl 180MG Oral Tablet 11/15/2020 Unknown ORAL DAILY 180 MILLIGRAMS 443090 RxNorm TAKE 180 MILLIGRAMS ORAL DAILY Fluticasone Propionate 0.05MG/Actuati on Nasal [place] 11/15/2020 04/15/20 23 NASAL TWICE A DAY 1 SPRAY 9095863 RxNorm SPRAY 1 SPRAY NASAL TWICE A DAY Ibuprofen 200MG Oral Tablet 11/15/2020 04/15/20 23 ORAL NEEDED TWICE DAILY 600 MILLIGRAMS 118883 RxNorm TAKE 600 MILLIGRAMS ORAL NEEDED TWICE DAILY Imitrex 100MG Oral Tablet 11/15/2020 04/15/20 23 ORAL NEEDED 100 MILLIGRAMS 364553 RxNorm TAKE 100 MILLIGRAMS ORAL NEEDED Ipratropium [place] rol Sulfate 0.5MG/3ML-3MG/ 3ML Inhalation Solution 11/15/2020 04/15/20 23 INHALATIO N NEEDED TWICE DAILY 1 UNIT 0045236 RxNorm 1 UNIT INHALATION NEEDED TWICE DAILY Melatonin 10 MG Oral Capsule 11/15/2020 04/15/20 23 ORAL BEDTIME 10 MG 713949 RxNorm TAKE 10 MG ORAL BEDTIME Mirtazapine 15MG Oral Tablet 11/15/2020 04/15/20 23 ORAL BEDTIME 15 MILLIGRAMS 091932 RxNorm TAKE 15 MILLIGRAMS ORAL BEDTIME Omeprazole 40MG Oral Capsule, Delayed Release 11/15/2020 Unknown ORAL DAILY 40 MILLIGRAMS 883613 RxNorm TAKE 40 MILLIGRAMS ORAL DAILY PARoxetine HCl 20MG Oral Tablet 11/15/2020 04/15/20 23 ORAL DAILY 20 MILLIGRAMS 4296223 RxNorm TAKE 20 MILLIGRAMS ORAL DAILY Senna 8.6MG Oral Tablet 11/15/2020 04/15/20 23 ORAL NEEDED AT BEDTIME 8.6 MILLIGRAMS 551422 RxNorm TAKE 8.6 MILLIGRAMS ORAL NEEDED AT BEDTIME Singulair 10MG Oral Tablet 11/15/2020 04/15/20 23 ORAL EVERY EVENING 10 MILLIGRAMS 225506 RxNorm TAKE 10 MILLIGRAMS ORAL EVERY EVENING Trelegy Ellipta NA Inhalation Powder 11/15/2020 04/15/20 23 INHALATIO N DAILY 1 PUFF 1188887 RxNorm 1 PUFF INHALATION DAILY Vitamin D 2000 IU Oral Tablet 11/15/2020 04/15/20 23 ORAL WEEKLY 2000 IU 989120 RxNorm TAKE 2000 IU ORAL WEEKLY amLODIPine Besylate 10MG Oral Tablet 11/15/2020 Unknown ORAL DAILY 10 MILLIGRAMS 699275 RxNorm TAKE 10 MILLIGRAMS ORAL DAILY busPIRone 10MG Oral Tablet 11/15/2020 Unknown ORAL THREE TIMES A DAY 20 MILLIGRAMS 032761 RxNorm TAKE 20 MILLIGRAMS ORAL THREE TIMES A DAY predniSONE 20MG Oral Tablet 11/15/2020 04/15/20 23 ORAL DAILY 3 TABLET 187794 RxNorm TAKE 3 TABLET ORAL DAILY LORazepam 0.5MG Oral Tablet 04/17/2023 Unknown ORAL EVERY 6 HOURS 1 TABLET 977378 RxNorm TAKE 1 TABLET ORAL EVERY 6 [...] 1726 0408 21AD 5641 023 Active FDA [id number] 23 07/23/2025 FLEX SHOULD ER SYSTEM [id number] Total reverse shoulder prosthesis 0103 7003 8694 4543 1725 1213 21CZ 3920 3310 36 Active FDA [id number] 24085 03/29/2025 Aequal is(TM) Ascend (TM) Flex [id number] Total reverse shoulder prosthesis 0103 7003 8694 1054 1725 1211 2191 19AV 009 Active FDA [id number] 09 03/27/2025 FLEX SHOULD ER SYSTEM [id number] Reverse shoulder prosthesis head 0100 8468 3206 1891 1726 0325 21CZ 5121 0570 10 Active FDA [id number] 58487 07/09/2025 AEQUAL IS(TM) PerFOR M Revers ed [id number] Reverse shoulder prosthesis base plate 0100 8468 3206 1884 1726 0611 2174 89AW 015 Active FDA [id number] W015 09/25/2025 AEQUAL IS(TM) PerFOR M Revers ed [id number] Orthopaedi c bone screw, non-bioabs orbable, sterile 0100 8468 3206 2072 1726 0107 2132 33AW 004 Active FDA [id number] 04 04/23/2025 AEQUAL IS(TM) PerFOR M Revers ed [id number] Problems Problem Start Date Resolved Date Status Code Code System OBSTRUCTIVE CHRONIC BRONCHITIS WITH EXACERBATION active 314459664 SNOMED-CT ACUTE AND CHRONIC RESPIRATOR Y FAILURE active 37201083 SNOMED-CT COPD active 55128494 SNOMED-CT PLEURAL EFFUSION active 65856539 SNO MED-CT HEMOPTYSIS, UNSPECIFIED 11/13/2020 resolved 61415 005 SNOMED-CT SEPTICEMIA NOS 11/13/2020 resolved SNOM ED-CT OTHER AND UNSPECIFIED HYPERLIPIDEMIA 11/13/2020 resolved 53501979 SNOMED-CT LUMBAGO 11/13/2020 resolved 138442050 SNOMED-CT TRANSIENT ALTERED MENTAL STATUS 11/13/2020 resolved 812186681 SNOMED-CT CANDIDIASIS OF MOUTH 11/13/2020 resolved 32959663 SNOMED-CT CLOSED FRACTURE OF ONE RIB 11/13/2020 resolved 45 917319 SNOMED-CT PNEUMONIA 11/13/2020 resolved SNOMED-CT HYPOSMOLALITY AND/OR HYPONATREMIA 11/13/2020 resolved 743277625 SNOMED-CT Allergies and Adverse Reactions Allergy Substance Reaction Severity Start Date Concern Status Code Code System TRAZODONE Hallucinations (SNOMED-CT: 3068552) Moderate Active 14080 RxNorm LISINOPRIL Cough (SNOMED-CT: 77188118) Active 03651 RxNorm FOSAMAX Moderate Active 115746 RxNorm Plan of Treatment Pre-Op Testing 11/06/2020 Pre-Op Covid-19 Testing 03/21/2020 BONE DENSITY DEXA SPINE & HIP 3 PRE-OP COVID-19 TESTING 01/10/2022 MM SCREEN BILAT 10/22/2021 CT CHEST W/O CONTRAST 05/31/2021 NM MPI STR/RST 07/22/2021 Encounters Encounter Diagnosis Start Date Code Code Sys tem Other fecal abnormalities 12/28/2021 SN OMED-CT Personal Care Team Section Performer Name Performer Role Active Date Inactive Da te
--- OUTSIDE RECORDS SUMMARY | 2023-12-15 06:14 | XMS_ITS ---
Author Organization Unknown Address [address] [place] [address] [phone] Phone Care Team Providers Care Tank Cooper Name Role Phone PINEDA Latham Attending Unavailable CONI Castellanos Primary Unavailable [facility] - Shiva ect Date/Time: 01/10/2022 10:13 [facility] ID: [id number] [address], [place], [phone] LOINC: 53005-2 Test Value Unit Reference Range Code Code System Flag Tier- PRE-OP 36971-0 LOINC SARS COV2 RNA: NEGATIVE REFERENCE RANGE: NEGAT 49828-4 L OINC CORRECTED Social History Type Status Start Date End Date Code Code Syst em Smoking History Former smoker 04/17/19986246 9605796 SNOMED CT Sex Female Medications Medication Start Date End Date Route Frequency Dose Code Code System Medication Instructions Home Meds Multivitamin Oral Tablet 06/25/2015 Unknown ORAL DAILY 1 TABLET 0650344 RxNorm TAKE 1 TABLET ORAL DAILY Acetaminophen 500MG Oral Tablet 11/15/2020 04/15/20 23 ORAL NEEDED 500 MILLIGRAMS 448898 RxNorm TAKE 500 MILLIGRAMS ORAL NEEDED Amitriptyline 25MG Oral Tablet 11/15/2020 04/15/20 23 ORAL EVERY EVENING 25 MILLIGRAMS 236211 RxNorm TAKE 25 MILLIGRAMS ORAL EVERY EVENING Azithromycin 250MG Oral Tablet 11/15/2020 04/15/20 23 ORAL DAILY 250 MILLIGRAMS 209035 RxNorm TAKE 250 MILLIGRAMS ORAL DAILY Calcium 600 MG Oral Tablet 11/15/2020 04/15/20 23 ORAL DAILY 600 MG 077368 RxNorm TAKE 600 MG ORAL DAILY Diclofenac Sodium 1% Topical application Gel/Jelly 11/15/2020 04/15/20 23 TOPICAL APPLICATI ON NEEDED TWICE DAILY 1 APPL 216281 RxNorm 1 APPL TOPICAL APPLICATIO N NEEDED TWICE DAILY Docusate Sodium 100MG Oral Capsule, Liquid Filled 11/15/2020 04/15/20 23 ORAL TWICE A DAY 100 MILLIGRAMS 4561561 RxNorm TAKE 100 MILLIGRAMS ORAL TWICE A DAY Donepezil HCl 10MG Oral Tablet 11/15/2020 Unknown ORAL DAILY 10 MILLIGRAMS 363884 RxNorm TAKE 10 MILLIGRAMS ORAL DAILY Fexofenadine HCl 180MG Oral Tablet 11/15/2020 Unknown ORAL DAILY 180 MILLIGRAMS 781260 RxNorm TAKE 180 MILLIGRAMS ORAL DAILY Fluticasone Propionate 0.05MG/Actuati on Nasal [place] 11/15/2020 04/15/20 23 NASAL TWICE A DAY 1 SPRAY 0381615 RxNorm SPRAY 1 SPRAY NASAL TWICE A DAY Ibuprofen 200MG Oral Tablet 11/15/2020 04/15/20 23 ORAL NEEDED TWICE DAILY 600 MILLIGRAMS 762836 RxNorm TAKE 600 MILLIGRAMS ORAL NEEDED TWICE DAILY Imitrex 100MG Oral Tablet 11/15/2020 04/15/20 23 ORAL NEEDED 100 MILLIGRAMS 980432 RxNorm TAKE 100 MILLIGRAMS ORAL NEEDED Ipratropium [place] rol Sulfate 0.5MG/3ML-3MG/ 3ML Inhalation Solution 11/15/2020 04/15/20 23 INHALATIO N NEEDED TWICE DAILY 1 UNIT 3772528 RxNorm 1 UNIT INHALATION NEEDED TWICE DAILY Melatonin 10 MG Oral Capsule 11/15/2020 04/15/20 23 ORAL BEDTIME 10 MG 474078 RxNorm TAKE 10 MG ORAL BEDTIME Mirtazapine 15MG Oral Tablet 11/15/2020 04/15/20 23 ORAL BEDTIME 15 MILLIGRAMS 696856 RxNorm TAKE 15 MILLIGRAMS ORAL BEDTIME Omeprazole 40MG Oral Capsule, Delayed Release 11/15/2020 Unknown ORAL DAILY 40 MILLIGRAMS 248805 RxNorm TAKE 40 MILLIGRAMS ORAL DAILY PARoxetine HCl 20MG Oral Tablet 11/15/2020 04/15/20 23 ORAL DAILY 20 MILLIGRAMS 8486429 RxNorm TAKE 20 MILLIGRAMS ORAL DAILY Senna 8.6MG Oral Tablet 11/15/2020 04/15/20 23 ORAL NEEDED AT BEDTIME 8.6 MILLIGRAMS 946860 RxNorm TAKE 8.6 MILLIGRAMS ORAL NEEDED AT BEDTIME Singulair 10MG Oral Tablet 11/15/2020 04/15/20 23 ORAL EVERY EVENING 10 MILLIGRAMS 652841 RxNorm TAKE 10 MILLIGRAMS ORAL EVERY EVENING Trelegy Ellipta NA Inhalation Powder 11/15/2020 04/15/20 23 INHALATIO N DAILY 1 PUFF 0072563 RxNorm 1 PUFF INHALATION DAILY Vitamin D 2000 IU Oral Tablet 11/15/2020 04/15/20 23 ORAL WEEKLY 2000 IU 107660 RxNorm TAKE 2000 IU ORAL WEEKLY amLODIPine Besylate 10MG Oral Tablet 11/15/2020 Unknown ORAL DAILY 10 MILLIGRAMS 222747 RxNorm TAKE 10 MILLIGRAMS ORAL DAILY busPIRone 10MG Oral Tablet 11/15/2020 Unknown ORAL THREE TIMES A DAY 20 MILLIGRAMS 736809 RxNorm TAKE 20 MILLIGRAMS ORAL THREE TIMES A DAY predniSONE 20MG Oral Tablet 11/15/2020 04/15/20 23 ORAL DAILY 3 TABLET 669844 RxNorm TAKE 3 TABLET ORAL DAILY LORazepam 0.5MG Oral Tablet 04/17/2023 Unknown ORAL EVERY 6 HOURS 1 TABLET 094327 RxNorm TAKE 1 TABLET ORAL EVERY 6 [...] Name Model Number Total reverse shoulder prosthesis 102 7003 8694 0507 1726 0408 21AD 5641 023 Active FDA [id number] 07/23/2025 FLEX SHOULD ER SYSTEM [id number] Total reverse shoulder prosthesis 102 7003 8694 4543 1725 1213 21CZ 3920 3310 36 Active FDA [id number] 73038 03/29/2025 Aequal is(TM) Ascend (TM) Flex [id number] Total reverse shoulder prosthesis 0103 7003 8694 1054 1725 1211 2191 19AV 009 Active FDA [id number] 09 03/27/2025 FLEX SHOULD ER SYSTEM [id number] Reverse shoulder prosthesis head 0100 8468 3206 1891 1726 0325 21CZ 5121 0570 10 Active FDA [id number] 84104 07/09/2025 AEQUAL IS(TM) PerFOR M Revers ed [id number] Reverse shoulder prosthesis base plate 0100 8468 3206 1884 1726 0611 2174 89AW 015 Active FDA [id number] W015 09/25/2025 AEQUAL IS(TM) PerFOR M Revers ed [id number] Orthopaedi c bone screw, non-bioabs orbable, sterile 0100 8468 3206 2072 1726 0107 2132 33AW 004 Active FDA [id number] 04 04/23/2025 AEQUAL IS(TM) PerFOR M Revers ed [id number] Problems Problem Start Date Resolved Date Status Code Code System OBSTRUCTIVE CHRONIC BRONCHITIS WITH EXACERBATION active 781694616 SNOMED-CT ACUTE AND CHRONIC RESPIRATOR Y FAILURE active 30079406 SNOMED-CT COPD active 96656866 SNOMED-CT PLEURAL EFFUSION active 47960526 SNO MED-CT HEMOPTYSIS, UNSPECIFIED 11/13/2020 resolved 07059 005 SNOMED-CT SEPTICEMIA NOS 11/13/2020 resolved SNOM ED-CT OTHER AND UNSPECIFIED HYPERLIPIDEMIA 11/13/2020 resolved 24123890 SNOMED-CT LUMBAGO 11/13/2020 resolved 892359151 SNOMED-CT TRANSIENT ALTERED MENTAL STATUS 11/13/2020 resolved 356940283 SNOMED-CT CANDIDIASIS OF MOUTH 11/13/2020 resolved 72396738 SNOMED-CT CLOSED FRACTURE OF ONE RIB 11/13/2020 resolved 45 160326 SNOMED-CT PNEUMONIA 11/13/2020 resolved SNOMED-CT HYPOSMOLALITY AND/OR HYPONATREMIA 11/13/2020 resolved 806018820 SNOMED-CT Allergies and Adverse Reactions Allergy Substance Reaction Severity Start Date Concern Status Code Code System TRAZODONE Hallucinations (SNOMED-CT: 5261799) Moderate Active 76025 RxNorm LISINOPRIL Cough (SNOMED-CT: 31025920) Active 73960 RxNorm FOSAMAX Moderate Active 830442 RxNorm Plan of Treatment Pre-Op Testing 11/06/2020 Pre-Op Covid-19 Testing 03/21/2020 BONE DENSITY DEXA SPINE & HIP 3 PRE-OP COVID-19 TESTING 01/10/2022 MM SCREEN BILAT 10/22/2021 CT CHEST W/O CONTRAST 05/31/2021 NM MPI STR/RST 07/22/2021 Encounters Encounter Diagnosis Start Date Code Code Sys tem Pre-surgery testing 01/10/2022 581693048 SNOMED-C T Personal Care Team Section Performer Name Performer Role Active Date Inactive Da te
--- OUTSIDE RECORDS SUMMARY | 2023-12-15 06:14 | XMS_ITS ---
Author Organization Unknown Address [address] [place] [phone] Phone Care Team Providers Care Furnace Keeper Name Role Phone PINEDA Latham Attending Unavailable CONI Castellanos Primary Unavailable Social History Type Status Start Date End Date Code Code Syst em Smoking History Former smoker 04/17/19983394 0396385 SNOMED CT Sex Female Medications Medication Start Date End Date Route Frequency Dose Code Code System Medication Instructions Home Meds Multivitamin Oral Tablet 06/25/2015 Unknown ORAL DAILY 1 TABLET 4622157 RxNorm TAKE 1 TABLET ORAL DAILY Acetaminophen 500MG Oral Tablet 11/15/2020 04/15/20 23 ORAL NEEDED 500 MILLIGRAMS 029321 RxNorm TAKE 500 MILLIGRAMS ORAL NEEDED Amitriptyline 25MG Oral Tablet 11/15/2020 04/15/20 23 ORAL EVERY EVENING 25 MILLIGRAMS 382579 RxNorm TAKE 25 MILLIGRAMS ORAL EVERY EVENING Azithromycin 250MG Oral Tablet 11/15/2020 04/15/20 23 ORAL DAILY 250 MILLIGRAMS 397052 RxNorm TAKE 250 MILLIGRAMS ORAL DAILY Calcium 600 MG Oral Tablet 11/15/2020 04/15/20 23 ORAL DAILY 600 MG 228596 RxNorm TAKE 600 MG ORAL DAILY Diclofenac Sodium 1% Topical application Gel/Jelly 11/15/2020 04/15/20 23 TOPICAL APPLICATI ON NEEDED TWICE DAILY 1 APPL 439248 RxNorm 1 APPL TOPICAL APPLICATIO N NEEDED TWICE DAILY Docusate Sodium 100MG Oral Capsule, Liquid Filled 11/15/2020 04/15/20 23 ORAL TWICE A DAY 100 MILLIGRAMS 5152907 RxNorm TAKE 100 MILLIGRAMS ORAL TWICE A DAY Donepezil HCl 10MG Oral Tablet 11/15/2020 Unknown ORAL DAILY 10 MILLIGRAMS 659708 RxNorm TAKE 10 MILLIGRAMS ORAL DAILY Fexofenadine HCl 180MG Oral Tablet 11/15/2020 Unknown ORAL DAILY 180 MILLIGRAMS 392935 RxNorm TAKE 180 MILLIGRAMS ORAL DAILY Fluticasone Propionate 0.05MG/Actuati on Nasal [place] 11/15/2020 04/15/20 23 NASAL TWICE A DAY 1 SPRAY 7757529 RxNorm SPRAY 1 SPRAY NASAL TWICE A DAY Ibuprofen 200MG Oral Tablet 11/15/2020 04/15/20 23 ORAL NEEDED TWICE DAILY 600 MILLIGRAMS 277985 RxNorm TAKE 600 MILLIGRAMS ORAL NEEDED TWICE DAILY Imitrex 100MG Oral Tablet 11/15/2020 04/15/20 23 ORAL NEEDED 100 MILLIGRAMS 224402 RxNorm TAKE 100 MILLIGRAMS ORAL NEEDED Ipratropium [place] rol Sulfate 0.5MG/3ML-3MG/ 3ML Inhalation Solution 11/15/2020 04/15/20 23 INHALATIO N NEEDED TWICE DAILY 1 UNIT 1603017 RxNorm 1 UNIT INHALATION NEEDED TWICE DAILY Melatonin 10 MG Oral Capsule 11/15/2020 04/15/20 23 ORAL BEDTIME 10 MG 013517 RxNorm TAKE 10 MG ORAL BEDTIME Mirtazapine 15MG Oral Tablet 11/15/2020 04/15/20 23 ORAL BEDTIME 15 MILLIGRAMS 669706 RxNorm TAKE 15 MILLIGRAMS ORAL BEDTIME Omeprazole 40MG Oral Capsule, Delayed Release 11/15/2020 Unknown ORAL DAILY 40 MILLIGRAMS 518591 RxNorm TAKE 40 MILLIGRAMS ORAL DAILY PARoxetine HCl 20MG Oral Tablet 11/15/2020 04/15/20 23 ORAL DAILY 20 MILLIGRAMS 1521032 RxNorm TAKE 20 MILLIGRAMS ORAL DAILY Senna 8.6MG Oral Tablet 11/15/2020 04/15/20 23 ORAL NEEDED AT BEDTIME 8.6 MILLIGRAMS 288832 RxNorm TAKE 8.6 MILLIGRAMS ORAL NEEDED AT BEDTIME Singulair 10MG Oral Tablet 11/15/2020 04/15/20 23 ORAL EVERY EVENING 10 MILLIGRAMS 127335 RxNorm TAKE 10 MILLIGRAMS ORAL EVERY EVENING Trelegy Ellipta NA Inhalation Powder 11/15/2020 04/15/20 23 INHALATIO N DAILY 1 PUFF 9803730 RxNorm 1 PUFF INHALATION DAILY Vitamin D 2000 IU Oral Tablet 11/15/2020 04/15/20 23 ORAL WEEKLY 2000 IU 478706 RxNorm TAKE 2000 IU ORAL WEEKLY amLODIPine Besylate 10MG Oral Tablet 11/15/2020 Unknown ORAL DAILY 10 MILLIGRAMS 444201 RxNorm TAKE 10 MILLIGRAMS ORAL DAILY busPIRone 10MG Oral Tablet 11/15/2020 Unknown ORAL THREE TIMES A DAY 20 MILLIGRAMS 218248 RxNorm TAKE 20 MILLIGRAMS ORAL THREE TIMES A DAY predniSONE 20MG Oral Tablet 11/15/2020 04/15/20 23 ORAL DAILY 3 TABLET 086369 RxNorm TAKE 3 TABLET ORAL DAILY LORazepam 0.5MG Oral Tablet 04/17/2023 Unknown ORAL EVERY 6 HOURS 1 TABLET 106030 RxNorm TAKE 1 TABLET ORAL EVERY 6 [...] physician. Reason For Referral No Data Found Procedures Procedure Name Date Status Code Code Syste m Colsc Flx w/Rmvl Of Tumor Po lyp Lesion Snare Tq 01/12/2022 completed 80428 CPT Implants Implanted [id number] Status Assigning Authority Procedure Date Lot Number Serial Number Manufacturing Date Expiration Date Distinct ID Code Brand Name Model Number Total reverse shoulder prosthesis 0103 7003 8694 0507 1726 0408 21AD 5641 023 Active FDA [id number] 07/23/2025 FLEX SHOULD ER SYSTEM [id number] Total reverse shoulder prosthesis 0103 7003 8694 4543 1725 1213 21CZ 3920 3310 36 Active FDA [id number] 39489 03/29/2025 Aequal is(TM) Ascend (TM) Flex [id number] Total reverse shoulder prosthesis 0103 7003 8694 1054 1725 1211 2191 19AV 009 Active FDA [id number] 09 03/27/2025 FLEX SHOULD ER SYSTEM [id number] Reverse shoulder prosthesis head 0100 8468 3206 1891 1726 0325 21CZ 5121 0570 10 Active FDA [id number] 02706 07/09/2025 AEQUAL IS(TM) PerFOR M Revers ed [id number] Reverse shoulder prosthesis base plate 0100 8468 3206 1884 1726 0611 2174 89AW 015 Active FDA [id number] W015 09/25/2025 AEQUAL IS(TM) PerFOR M Revers ed [id number] Orthopaedi c bone screw, non-bioabs orbable, sterile 0100 8468 3206 2072 1726 0107 2132 33AW 004 Active FDA [id number] 04 04/23/2025 AEQUAL IS(TM) PerFOR M Revers ed [id number] Problems Problem Start Date Resolved Date Status Code Code System OBSTRUCTIVE CHRONIC BRONCHITIS WITH EXACERBATION active 402258537 SNOMED-CT ACUTE AND CHRONIC RESPIRATOR Y FAILURE active 66897611 SNOMED-CT COPD active 04925481 SNOMED-CT PLEURAL EFFUSION active 24922949 SNO MED-CT HEMOPTYSIS, UNSPECIFIED 11/13/2020 resolved 37564 005 SNOMED-CT SEPTICEMIA NOS 11/13/2020 resolved SNOM ED-CT OTHER AND UNSPECIFIED HYPERLIPIDEMIA 11/13/2020 resolved 30931697 SNOMED-CT LUMBAGO 11/13/2020 resolved 180057201 SNOMED-CT TRANSIENT ALTERED MENTAL STATUS 11/13/2020 resolved 436506131 SNOMED-CT CANDIDIASIS OF MOUTH 11/13/2020 resolved 03365185 SNOMED-CT CLOSED FRACTURE OF ONE RIB 11/13/2020 resolved 45 430180 SNOMED-CT PNEUMONIA 11/13/2020 resolved SNOMED-CT HYPOSMOLALITY AND/OR HYPONATREMIA 11/13/2020 resolved 251818338 SNOMED-CT Allergies and Adverse Reactions Allergy Substance Reaction Severity Start Date Concern Status Code Code System TRAZODONE Hallucinations (SNOMED-CT: 7268687) Moderate Active 11667 RxNorm LISINOPRIL Cough (SNOMED-CT: 98456570) Active 47765 RxNorm FOSAMAX Moderate Active 483671 RxNorm Plan of Treatment Pre-Op Testing 11/06/2020 Pre-Op Covid-19 Testing 03/21/2020 BONE DENSITY DEXA SPINE & HIP PRE-OP COVID-19 TESTING 01/10/2022 MM SCREEN BILAT 10/22/2021 CT CHEST W/O CONTRAST 05/31/2021 NM MPI STR/RST 07/22/2021 Encounters Encounter Diagnosis Start Date Code Code Sys tem Polyp of colon 01/12/2022 SNOMED-CT Personal Care Team Section Performer Name Performer Role Active Date Inactive Da te
--- OUTSIDE RECORDS SUMMARY | 2023-12-15 06:15 | XMS_ITS | Encounter Summary ---
Author Organization [facility] [place] [address] Care Team Providers Care Photographic Intelligence Officer Name Role Phone Nayana Blankenship MD Primary Care Provider Encounter Details Date Type Department Care Team (Late st Contact Info) Description 11/27/2018 3:00 PM EDT [place] [address] Social History Tobacco Use Types Packs/Day Years Used Date Smoking Tobacco: Former Cigarettes 1 33 e-Cigarettes Smokeless Tobacco: Never Comments:quit 1998 Alcohol Use Standard Drinks/Week Comments No 0 (1 standard drink = 0.6 oz pur e alcohol) A few beers a week Sex and Gender Information Value Date Recorded Sex Assigned at Not on file Gender Identity Not on file Sexual Orientation Not on file documented as of this encounter Plan of Treatment Not on file documented as of this encounter Visit Diagnoses Not on filedocumented in this encounter Care Teams Photographic Intelligence Officer Relationship Specialty Start Date End Date Nayana Blankenship MD [address] [place] [address] PCP - General 03/09/10 documented as of this encounter
--- OUTSIDE RECORDS SUMMARY | 2023-12-15 06:15 | XMS_ITS | Encounter Summary ---
Author Organization [facility] Address [facility] [place] [address] Care Team Providers Care Care Advocate Name Role Phone Nayana Blankenship MD Primary Care Provider [phone] Reason for Visit * Auth/Cert Specialty Diagnoses / Procedures Referred By Adarsh t Referred To Contact Diagnoses Parotid tumor Parotid tumor Parotid Mass Post-Op monitoring Procedures PRO EXC PAROTD, TOTAL, DISSECT 5TH NERV PRG SOMATOSENSORY TEST, ANY/ALL PER. NERVES, TRUNK OR HEAD EXCISION OF PAROTID TUMOR OR PAROTID GLAND, TOTAL, WITH DISSECTION AND PRESERVATION OF FACIAL NERVE (WRVU 19.53) FACIAL NERVE MONITORING, SETUP PERIPHERAL (WRVU 0.54) Referral ID Status Reason Start Date Expiration Date Visits Re quested Visits Authorized [id number] 1 1 Encounter Details Date Type Department Care Team (Late st Contact Info) Description 01/23/2019 7:32 AM EDT Anesthesia Event [place] [address] Lucas Forrester MD [facility] [place] [address] Bella Ervin MD [facility] [place] [address] Anesthesia Record Procedure Summary Procedure Name Responsible Anesthesiologist Anesthesia Start Time Anesthesia Stop Time EXC.PAROTID TUMOR OR GLAND, LATERAL LOBE, W DISSECTION & PRESERVATION FACIAL NERVE (WRVU 17.16) (Left: Face) Lucas Forrester MD 01/23/19 0732 01/23/19 1029 Events Date Time Event Comment 01/23/2019 0732 AN Verify 0732 Start 0732 An Start Data 0737 An Induction 0740 An Intubation 0751 Anesthesia Ready 0822 Procedure Start 1029 Extubation/LMA Out 1029 an stop data 1029 Recovery or ICU Handoff Serene ent care was transferred to the destination unit staff after review of the patient's medical history, current anesthetic/surgical status and plan, according to the Provider Handoff Checklist. 1029 Stop 1135 Meds Name Total fentaNYL 100 mcg Propofol 250 mg PHENYLephrine 120 mcg Ondansetron 4 mg Dexamethasone 8 mg Clindamycin 600 mg Succinylcholine 100 mg PHENYLephrine INF 3,800 mcg Ketamine INF 49.4 mg HYDROmorphone 0.4 mg Lactated Ringers 800 mL * Agents Name O2 Air N2O Sevoflurane (et) * Blood No blood administrations on file. Lines, Drains, and Airways Type Details Placement Removal Incision 11/14/18; 1205; neck ; laparoscopic puncture; Parotid Biopsy; 12/13/21 (LDA cleanup utility RA#[id number]); 1715 (LDA cleanup utility RA#[id number]) 11/14/18 1205 by Luis F Sam, RN 12/13/21 1715 by Gregg Root (RETIRED) Peripheral IV Line - Single Lumen 01/23/19; 0655; median cubital vein (antecubital fossa), left; [id number] catheter system; 20 gauge; 01/24/19; 0915 01/23/19 0655 by Phyllis Christian, RN 01/24/19 0915 by Linda Hebert Urethral Catheter 01/23/19; 0745; Surg mati longer than 2 hours, Physician order; indwelling catheter with core temperature probe; 100% silicone; 14; inserted at this facility; 1; 10; 10; drainage bag to dependent drainage; 01/23/19; 1345 01/23/19 0745 by Nette Zafar, RN 01/23/19 1345 by Bella Bertrand, RN ETT Mask Ventilation: Ea sy (1); ETT Type: Cuffed, Oral; ETT Size: 7.5 mm; Mac Blade: 3; Notes: Asleep, Pre-O2, Stylette; Attempts: 1; Laryngoscopy Grade: 1; ETT Placement Verified By: Auscultation, Capnometry, Visual; Removal Date: 01/23/19; Removal Time: 1029 01/23/19 0815 by Michael Mccormack MD 01/23/19 1029 by Michael Mccormack MD Incision 01/23/19; 0823; neck ; horizontal; 12/13/21 (LDA cleanup utility RA#[id number]); 1715 (LDA cleanup utility RA#[id number]) 01/23/19 0823 by Nette Zafar RN 12/13/21 1715 by Gregg Root documented in this encounter Social History Tobacco Use Types Packs/Day Years [...] on file documented as of this encounter OR Notes * Anesthesia Postprocedure Evaluation - Michael Mccormack - 01/23/2019 10:29 AM EDT Department of Anesthesiology Post-procedure Note Patient: Kyleigh Caballero Procedure Summary Date: 01/23/19 Room / Location: [facility] OR [address] [place] [address] MAIN OR Anesthesia Start: 731 Anesthesia Stop: 1028 Procedures: EXC.PAROTID TUMOR OR GLAND, LATERAL LOBE, W DISSECTION & PRESERVATION FACIAL NERVE (WRVU 17.16)(Left Face) FACIAL NERVE MONITORING, SETUP PERIPHERAL (WRVU 0.54) (Left Neck) Diagnosis: Parotid mass (Parotid Mass) Surgeon: Rafy Ty MD Responsible Provider: Lucas Forrester MD Anesthesia Type: general ASA Status: 3 All Anesthesia Providers: Anesthesiologist: Lucas Forrester MD Defensive Driving Instructor: Michael Mccormack MD Vitals Value Taken Time BP Temp Pulse Resp SpO2 Pain Level Patient Location: PACU/[facility] Level of Consciousness: Conscious but Sleepy Pain Management: Satisfactory Analgesia PONV: None Cardiovascular Status: At Baseline Respiratory Status: At Baseline and Supplemental O2 (NC or FM) Postoperative Fluid Status: Intravascular EUvolemia Possible Anesthetic Complications: NONE apparent at time of evaluation Final Primary Anesthesia Type: General (The anesthetic type performed was the same as planned.) Comments: * Anesthesia Preprocedure Evaluation - EastonMichael Michelle - 01/22/2019 3:43 PM EDT Images from the original note were not included. Pre-Anesthesia Evaluation for: Kyleigh Caballero a 69 y.o. female. Procedure(s): EXCISION OF PAROTID TUMOR OR PAROTID GLAND, TOTAL, WITH DISSECTION AND PRESERVATION OF FACIAL NERVE(WRVU 19.53) FACIAL NERVE MONITORING, SETUP PERIPHERAL (WRVU 0.54) Patient Active Problem List Diagnosis ??? Obesity (BMI 30.0-34.9) ??? Anxiety and depression ??? On supplemental oxygen therapy--at night and prn during the day ??? Borderline diabetes mellitus ??? Chronic pain syndrome ??? COPD ??? Hypertension (HTN) ??? Esophageal reflux (GERD) ??? HCV (hepatitis C virus) Past Medical History: Diagnosis Date ??? Anxiety ??? Arthritis ??? Asthma ??? CHF (congestive heart failure) ??? Chronic pain chronic pain left shoulder ??? COPD (chronic obstructive pulmonary disease) ??? Cryptogenic organizing pneumonia 06/03/2014 ??? Depression ??? GERD (gastroesophageal reflux disease) ??? Hepatitis C ??? High blood pressure ??? Hypertension ??? Liver disease ??? Mental health problem depression and anxiety ??? Oxygen dependent 2l nightly and prn ??? Transfusion history in 2000 Past Surgical History: Procedure Laterality Date ??? CLAVICLE SURGERY broken left clavicle ??? IR BIOPSY PAROTID 11/14/2018 IR Biopsy Parotid 11/14/2018 Teo Kuhn MD [facility] INTERVENTIONL RAD ??? LUNG DECORTICATION 2/2 strep milari empyema ??? NOSE SURGERY broken nose Social History Tobacco Use ??? Smoking status: Former Smoker Packs/day: 1.00 Years: 33.00 Pack years: 33.00 Types: e-Cigarettes, Cigarettes ??? Smokeless tobacco: Never Used ??? Tobacco comment: quit 1998 Substance Use Topics ??? Alcohol use: No Comment: A few beers a week Social History Substance and Sexual Activity Drug Use No Allergies Allergen Reactions ??? Red Blood Cells Other (See Comments) Antibodies-Difficult to Crossmatch DO NOT REMOVE Please contact the Blood Bank at [phone] for questions. ??? Alendronate Sodium CIS - severe joint pain, CIS - severe joint pain, CIS - severe joint pain, CIS - severe joint pain ??? Adhesive Tape Pulls skin off ??? Atenolol CIS - DEPRESS,DIZZINESS, CIS - DEPRESS,DIZZINESS, CIS - DEPRESS,DIZZINESS, CIS - DEPRESS,DIZZINESS ??? Codeine CIS - jittery, CIS - jittery, CIS - jittery, CIS - jittery ??? Lisinopril CIS - COUGH, CIS - COUGH, CIS - COUGH, CIS - COUGH ??? Trazodone CIS - NIGHTMARES, CIS - NIGHTMARES, CIS - NIGHTMARES, CIS - NIGHTMARES Medications: MAR and/or home medications have been reviewed. Physical Exam: There were no vitals filed for this visit. There is no height or weight on file to calculate BMI. Airway Assessment: Mallampati: II TM distance: >3 FB Neck ROM: full Cardiovascular Assessment: cardiovascular exam normal Pulmonary Assessment: pulmonary exam normal Dental Assessment: Misc Assessment: Anesthesia Plan: ASA 3 general, 69 yo f will undergo excision of parathyroid tumor with facial nerve monitoring. MHx of GERD, Asthma (albuterol for seasonal allergies), COPD (marissa, chavo, no steroids, on 3L O2 at night, 1-2 hrs in the morning: stable on this regimen for years), CHF, HTN (amlodipine), HEP C. Per chart review able to walk 100 yards without significant SOB or any CP. She used to be hospitalized almost yearly for pneumonia, but has not been hospitalized in close to 4 years. She had strep milleri pneumonia in 02/2011 and underwent decortication at that time. Relevant studies: Several EKG's are SR and do not show significant abnormalities. No TTE. Chest CT 11/28/2018 shows moderate emphysema. Neck CT 11/27/2018 does not show flow limiting stenosis. Per pulmonology notes - overnight oxymetry on 2L oxygen with SpO2 89%. Last PFT's FEv1/FVC 55, FEV1 78% 1.86L, FVC 115%, 3.37L, no bronchodilator response. Overall spirometry stable since 2009. Current smoker for 33 years 1 PPD, now on e-cigarrets. Airway hx (2009): easy MV, mac 3 gr 1 GA with ETT. Will intubate with succinylcholine or small dose of rocuronium. No muscle paralysis during the neuro monitoring. 180 degree bed rotation. At high risk for prolonged post-op intubation with possible ICU admission. Informed Consent: Anesthetic plan and risks discussed with patient. Use of blood products discussed with patient who consented to blood products. PAT Clinic Note documented in this encounter Plan of Treatment Not on file documented as of this encounter Visit Diagnoses Not on filedocumented in this encounter Administered Medications Inactive Administered Medications - up to 3 most recent administrations Medication Order MAR Action Action Date Dose Rate Site clindamycin (CLEOCIN) injection PRN, Starting on Mon01/23/19 at 0751, Until Mon01/23/19 at 1029, Anesthesia Intra-op, Routine Given 01/23/2019 7:51 AM EDT 600 mg dexamethasone (DECADRON) injection PRN, Starting on Mon01/23/19 at 0831, Until Mon01/23/19 at 1029, Anesthesia Intra-op, Routine Given 01/23/2019 8:31 AM EDT 8 mg fentaNYL 50 mcg/mL multi-dose injection PRN, Starting on Mon01/23/19 at 0741, Until Mon01/23/19 at 1029, Anesthesia Intra-op, Routine Given 01/23/2019 9:10 AM EDT 25 mcg Given 01/23/2019 7:41 AM EDT 75 mcg HYDROmorphone (DILAUDID) injection PRN, Starting on Mon01/23/19 at 0936, Until Mon01/23/19 at 1029, Anesthesia Intra-op, Routine Given 01/23/2019 9:53 AM EDT 0.2 mg Given 01/23/2019 9:36 AM EDT 0.2 mg ketamine (KETALAR) 10 mg/mL injection CONTINUOUS PRN, Starting on Mon01/23/19 at 0825, Until Mon01/23/19 at 1029, Anesthesia Intra-op, Routine Rate/Dose Change 01/23/2019 9:25 AM EDT 0.5 mg/kg/hr 4.2 mL/hr Rate/Dose Change 01/23/2019 9:12 AM EDT 1 mg/kg/hr 8.4 mL/ hr New Bag 01/23/2019 8:35 AM EDT 0.5 mg/kg/hr 4.2 mL/hr lactated ringers infusion CONTINUOUS PRN, Starting on Mon01/23/19 at 0732, Until Mon01/23/19 at 1029, Anesthesia Intra-op New Bag 01/23/2019 7:32 AM EDT ondansetron (ZOFRAN) injection PRN, Starting on Mon01/23/19 at 0933, Until Mon01/23/19 at 102, Anesthesia Intra-op, Routine Given 01/23/2019 9:33 AM EDT 4 mg PHENYLephrine (FERNY-SYNEPHRINE) 20 mg in sodium chloride 250 mL (standard ADULT & Pedi greater than 20kg) infusion CONTINUOUS PRN, Starting on Mon01/23/19 at 0751, Until Mon01/23/19 at 1029, Anesthesia Intra-op, Routine Rate/Dose Change 01/23/2019 9:24 AM EDT 40 mcg/min 30 mL/hr Rate/Dose Change 01/23/2019 8:36 AM EDT 20 mcg/min 15 mL/h r New Bag 01/23/2019 7:51 AM EDT 40 mcg/min 30 mL/hr PHENYLephrine in NS (PF) (FERNY-SYNEPHRINE) 0.8 mg/10 mL (80 mcg/mL) multi-dose injection Syrg PRN, Starting on Mon01/23/19 at 0747, Until Mon01/23/19 at 1029, Anesthesia Intra-op, Routine Given 01/23/2019 8:16 AM EDT 40 mcg Given 01/23/2019 7:57 AM EDT 40 mcg Given 01/23/2019 7:47 AM EDT 40 mcg propofol (DIPRIVAN) 10 mg/mL bolus injection (Anesthesia) PRN, Starting on Mon01/23/19 at 0737, Until Mon01/23/19 at 1029, Anesthesia Intra-op Given 01/23/2019 9:10 AM EDT 50 mg Given 01/23/2019 7:51 AM EDT 50 mg Given 01/23/2019 7:45 AM EDT 50 mg succinylcholine chloride (Quelicin) injection PRN, Starting on Mon01/23/19 at 0737, Until Mon01/23/19 at 1029, Anesthesia Intra-op, Routine Given 01/23/2019 7:37 AM EDT 100 mg documented in this encounter Care Teams Care Advocate Relationship Specialty Start Date End Date Nayana Blankenship MD [address] [place] [address] PCP - General 03/09/10 documented as of this encounter
--- OUTSIDE RECORDS SUMMARY | 2023-12-15 06:15 | XMS_ITS | Clinical Summary ---
Author Organization [facility] Address [address] [place] [address] Care Team Providers Care Coke Handling Supervisor Name Role Phone Meg Carrero MD Primary Care Provider [phone] Social History Tobacco Use Types Packs/Day Years Used Date Smoking Tobacco: Never Assessed Sex and Gender Information Value Date Recorded Sex Assigned at Not on file Gender Identity Not on file Sexual Orientation Not on file Plan of Treatment Health Maintenance Due Date Last Done Comments Hepatitis C Screen 1950 RSV Immunization ( o r 60+ Years) (1 - 1-dose 60+ series) 2011 Fall Risk Screening 01/12/2016 COVID-19 Vaccine (2022- season) 2022 Care Teams Coke Handling Supervisor Relationship Specialty Start Date End Date Meg Carrero MD [address] [place] [phone] PCP - General 02/28/15
--- OUTSIDE RECORDS SUMMARY | 2023-12-15 06:15 | XMS_ITS | Encounter Summary ---
[place] [address] Care Team Providers Care Rewards Consultant Name Role Phone Nayana Blankenship MD Primary Care Provider [phone] Encounter Details Date Type Department Care Team (Late st Contact Info) Description 10/16/2018 Telephone [place] [phone] Cathy Serrano Social History Tobacco Use Types Packs/Day Years Used Date Smoking Tobacco: Former Smokeless Tobacco: Never Alcohol Use Standard Drinks/Week Comments No 0 [...] on filedocumented in this encounter Care Teams Rewards Consultant Relationship Specialty Start Date End Date Nayana Blankenship MD [address] [place] [address] PCP - General 03/09/10 documented as of this encounter
--- OUTSIDE RECORDS SUMMARY | 2023-12-15 06:15 | XMS_ITS | Encounter Summary ---
Author Organization [facility] Address [address] [place] [address] Care Team Providers Care Advisory Software Engineer Name Role Phone Unavailable Primary Care Provider Unavailabl e Encounter Details Date Type Department Care Team (Late st Contact Info) Description 11/13/2006 Results Only [facility] conversion [address] [place] [address] Obed Thomson MD [address] [place] [address] Social History Tobacco Use Types Packs/Day Years Used Date Smoking Tobacco: Never Assessed Sex and Gender Information Value Date Recorded Sex Assigned at Not on file Gender Identity Not on file Sexual Orientation Not on file documented as of this encounter Plan of Treatment Not on file documented as of this encounter Procedures Procedure Name Priority Date/Time Associated Diagnosis Comments SURGICAL PATHOLOGY Routine 11/13/2006 0:00 EDT documented in this encounter Results * SURGICAL PATHOLOGY (11/13/2006 0:00 EDT) Pathology Report: SURGICAL PATHOLOGY REPORT Reports generated via electronic interface contain original data; however they are lacking the format of the original report. Caution should be taken when reading/interpreti ng unformatted reports. Name: ? ISRA CABALLERO ? Accession #: ? [id number] ? : ? 1950 (Age: 56) ??F ? Collect Date: ? 11/13/2006 ? Location: ? [facility] ? Receive Date: ? 11/14/2006 ? Provider: OBED THOMSON MD Copy to: ? Final Pathologic Diagnosis: ? Alveolar ulcer, right, biopsy: 1. ?? Hyperplastic squamous mucosa with parakeratosis. ?- No evidence of dysplasia. Document reviewed and electronically signed by: LAZARO PAINTER MD Report ??Date: 11/17/2006 17:35 By the signature above, the attending physician certifies that he/she has personally conducted a gross and/or microscopic examination of the described specimens and rendered or confirmed the above diagnosis. Specimen(s) Received: ? R alveolar ulcer Clinical History: ? Clinical diagnosis code: ??239.2 Gross Description: ? Received in formalin labelled Caballero and right alveolar mass are two meza-white glistening portions of soft tissue averaging 0.2 x 0.1 x 0.1 cm. Also received in the same container are three irregular portions of black material averaging 0.1 x 0.1 by less than 0.1 cm. Submitted in toto in one cassette. (Ghislaine Mendez/[facility] End of Report [facility] 11/13/2006 11/14/2006 11: 03 EDT Obed Thomson MD PATHOLOGY ORDERABLES [facility] [address] [place] [address] documented in this encounter Visit Diagnoses Not on filedocumented in this encounter
--- OUTSIDE RECORDS SUMMARY | 2023-12-15 06:15 | XMS_ITS | Encounter Summary ---
Author Organization [facility]ly [facility] [place] [address] Care Team Providers Care Coal Mine Inspector Name Role Phone Nayana Blankenship MD Primary Care Provider [phone] Reason for Referral * Diagnostic Test (Routine) - Closed Specialty Diagnoses / Procedures Referred By Adarsh boo Referred To Contact Radiology Diagnoses Parotid mass Procedures IR Biopsy Parotid IR US Guided Biopsy Thyroid FNA Rafy Ty MD [facility] [place] [address] [facility] [place] [address] Referral ID Status Reason Start Date Expiration Date V isits Requested Visits Authorized [id number] Closed Specialty Service Requested 10/31/2018 10/31/2019 1 1 Reason for Visit * Diagnostic Test (Routine) - Closed Specialty Diagnoses / Procedures Referred By Adarsh boo Referred To Contact Radiology Diagnoses Parotid mass Procedures IR Biopsy Parotid IR US Guided Biopsy Thyroid FNA Rafy Ty MD [facility] [place] [address] [facility] [place] [address] Referral ID Status Reason Start Date Expiration Date V isits Requested Visits Authorized [id number] Closed Specialty Service Requested 10/31/2018 10/31/2019 1 1 Encounter Details Date Type Department Care Team (Latest Contact Info) Description 11/14/2018 9:59 AM EDT - 11/14/2018 11:59 PM EDT Hospital Encounter Radiology at [facility], [place] [address] [place] [address] Rafy Ty MD [facility] [place] [address] Parotid mass Discharge Disposition: Home Social History Tobacco Use Types Packs/Day Years [...] on file documented as of this encounter Last Filed Vital Signs Vital Sign Reading Time Taken Comments Blood Pressure 134/88 11/14/2018 12:45 PM EDT Pulse 86 11/14/2018 10:15 AM EDT Temperature 36.7 ??C (98 ??F) 11/14/2018 12:12 PM EDT Respiratory Rate 16 11/14/2018 10:15 AM EDT Oxygen Saturation 97% 11/14/2018 12:45 PM EDT Inhaled Oxygen Concentration - - Weight - - Height - - Body Mass Index - - documented in this encounter Discharge Instructions * Discharge Instructions* Luis F Sam RN - 11/14/2018 12:28 PM EDT [facility] Vascular and Interventional Radiology Biopsy Discharge Instructions ??? Parotid biopsy: call your doctor immediately if you develop a sudden onset of weakness, increased pain or swelling at the biopsy site or heavy bleeding at the biopsy site. Activity And Diet: ??? Go home and rest quietly for the remainder of the day. You may resume your normal activities tomorrow. ??? Resume your usual diet after the procedure. ??? Do not drive, sign any important/legal documents, or make any important decisions for 24 hours following sedation medications. When to call your healthcare provider: ??? If you see any redness, swelling or drainage at the biopsy site. ??? If you develop chills. ??? If you have a fever greater than or equal to 101 degrees Fahrenheit. ??? If you develop pain around the biopsy site. Bandage: ??? Check the dressing/bandaid throughout the day for an increase in drainage. Keep the biopsy sitedry for 24 hours. Replace the bandaid as needed. You may shower 24 hours after the biopsy. Medication: ??? DO NOT take aspirin-containing products, ibuprofen, or blood-thinning medication for the next 24 hours unless your doctor says you may do so. ??? Generally you may use acetaminophen as needed for discomfort unless you have liver disease and are instructed not to take acetaminophen. Biopsy Results ??? The results of your biopsy should be available within 5 business days and will be reported to you by your primary career professional or the clinician who ordered the biopsy. Please do not call us forresults as we will not have them. ??? If you have not been contacted by your clinician within 5 business days you should call that office for further information. When to call the Interventional Radiology Department: Please call with any questions or concerns. If it is during regular office hours, please call [phone]. If it is after regular office hours, or on weekends or holidays, please call [phone] and ask to speak to the [employer] garbage person for Interventional Radiology. You have received medication during your procedure to help lessen anxiety and keep you comfortable.These medications affect judgement and reaction time. We recommend that you do not drive, operate equipment, sign any important documents, or smoke unattended for 24 hours following your procedure. Because of the sedation, be careful on stairs, as you may be unsteady on your feet. You may resume your regular diet as tolerated. IV site -- slight redness, or tenderness is normal, you can use a warm compress. If tenderness and redness increases or foul drainage occurs, please contact your M. D. Revised 05/01/15 documented in this encounter Medications at Time of Discharge Medication Sig Dispensed Refills Start Date End Date azithromycin (ZITHROMAX) 250 mg Tablet Take 250 mg by mouth daily. Day1:take 2 tablets daily, Day 2-5:Take one tablet daily multivitamin (THERAGRAN) Tablet Take 1 tablet by mouth daily. montelukast (SINGULAIR) 10 mg Tablet Take 10 mg by mouth nightly. 11/07/2013 amitriptyline (ELAVIL) 75 mg tablet Take 1 tablet by mouth nightly. 90 tablet 3 11/20/2012 amlodipine (NORVASC) 10 mg tablet Take 1 tablet by mouth daily. 30 tablet 3 11/20/2012 PARoxetine (PAXIL) 40 mg tablet Take 1 tablet by mouth every morning. 90 tablet 3 11/20/2012 ipratropium-albutero l (DUONEB) 0.5 mg-3 mg(2.5 mg base)/3 mL nebulizer solution Take 3 mLs by nebulization every 4 hours as needed. ERGOCALCIFEROL, VITAMIN D2, (VITAMIN D ORAL) 05/14/2010 ibuprofen (ADVIL;MOTRIN) 800 mg tablet 800 MG = 1 Tablet(s), PO, Three times daily 05/14/2010 donepezil (ARICEPT) 10 mg Tablet Take 10 mg by mouth nightly. 11/27/2018 loratadine (CLARITIN) 10 mg Tablet Take 10 mg by mouth daily. 11/27/2018 umeclidinium-vilante rol (ANORO ELLIPTA) 62.5-25 mcg/actuation Disk with Device Inhale into the lungs. 11/27 ibandronate (BONIVA) 150 mg Tablet Take 150 mg by mouth every 30 days. Take in AM with full glass of water, on an empty stomach. Do not lie down for 30 min. 11/27/2018 pramipexole (MIRAPEX) 0.125 mg Tablet 01/17/2014 11/27/2018 diclofenac (VOLTAREN) 75 mg Tablet, Delayed Release (E.C.) 09/25/2013 11/27/2018 metFORMIN (GLUCOPHAGE) 1,000 mg tablet Take 1,000 mg by mouth 2 times daily (with meals). Patient is unsure of dose 11/27/2018 predniSONE (DELTASONE) 20 mg tablet Take 20 mg by mouth. 019 furosemide (LASIX) 20 mg tablet Take 20 mg by mouth daily. 04/16/2013 11/27/2018 hydroCODone-acetamin ophen (VICODIN) 5-500 mg per tablet Take 1 tablet by mouth every 6 hours as needed. 11/27/2018 diaZEPam (VALIUM) 5 mg tablet Take 5 mg by mouth 2 times daily. 11/27/2018 fluticasone-salmeter ol (ADVAIR DISKUS) 500-50 mcg/dose diskus inhaler Inhale 1 puff into the lungs 2 times daily. 1 Inhaler 0 11/20/2012 11/27/2018 omeprazole (PRILOSEC) 20 mg capsule Take 1 capsule by mouth daily. 90 capsule 3 11/20/2012 11/27/2018 tiotropium (SPIRIVA WITH HANDIHALER) 18 mcg inhalation capsule Inhale 1 capsule into the lungs daily. 90 capsule 0 11/20/2012 11/27/2018 documented as of this encounter Progress Notes * Dallas Canela - 11/14/2018 10:32 AM EDT INTERVENTIONAL RADIOLOGY FOCUSED H&P: Procedure: Left neck FNA biopsy The patient's history and physical exam have been reviewed and completed. There has been no interval change from that of the pre-operative history and physical exam done within the last 30 days. Physical Exam: Cardiovascular: Regular, Normal Pulmonary: Breath sounds clear to auscultation Neck: Left neck mass, approximately 2 to 3cm in size. The planned procedure (and sedation plan if appropriate) , its benefits and risks, and alternativeswere discussed with the patient. The patient consented to the procedure. PRE-SEDATION ASSESSMENT: Sedation Plan: no sedation Current medications reviewed: Yes Allergies reviewed: Yes documented in this encounter Nursing Notes * Manuela Cazares RN - 11/14/2018 11:27 AM EDT To room 5 via stretcher. No monitors needed, local only. documented in this encounter Plan of Treatment Not on file documented as of this encounter Procedures Procedure Name Priority Date/Time Associated Diagnosis Comments NON-FREIGHT TEAM ASSOCIATE FINAL REPORT Routine 11/14/2018 12:37 PM EDT IR BIOPSY PAROTID Routine 11/14/2018 12: 06 PM EDT Parotid mass CYTOPATHOLOGY NON-GYNECOLOGICAL Routine 11/14/2018 11:18 AM EDT SPECIMEN TO PATHOLOGY Routine 11/14/2018 11:09 AM EDT documented in this encounter Results * Non-Security Guard Supervisor Final Report (11/14/2018 12:37 PM EDT) Diagnosis Discussion [id number] ? Location: [facility] The signing pathologist has (i) examined the relevant preparation(s) for the specimen(s) and (ii) rendered or confirmed the diagnosis(es). . ? Non-Security Guard Supervisor Final DIAGNOSIS Neoplastic Cells Present See discussion. Electronically signed by: ??Laurie SAAVEDRA, Tyrone Chase Verified: ??11/15/2018 ?Cytopathologis t Performed at: ??-[facility] Dept. of Pathology, [place], [place] DISCUSSION Parotid: left (US-guided FNA) - Benign. Hypocellular aspirate containing cytologically bland epithelioid cells (some with eccentric nuclei) as well as stroma; compatible with a pleomorphic adenoma. Recommend clinical and radiologic correlation. (Cell block was examined.) Reference: The [employer] System for Reporting Salivary Gland Cytopathology, Sander Olson and Aminta Griffin, editors; Pierre, 2018. 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 cloudy, pink fluid, with clots. Total Preparation: Diff Quik 2; Pap Stain 2; Cell Block 1. 11/15/2018 1:48 PM EDT [facility] PAROTID GLAND STRUCTURE / Unknown 11/14/2018 12:37 PM EDT 11/14/2018 12:37 PM EDT Rafy Ty MD PATHOLOGY/CYTOLOGY ORDERABLES [facility] [place] [address] * IR Biopsy Parotid (11/14/2018 12:06 PM EDT) Anatomical Region Laterality Modality X-Ray Angiograph y Impressions 11/14/2018 1:16 PM EDT Technically successful ultrasound-guided fine-needle aspiration of a inferior left parotid mass Operators: Fellow: Dallas Canela M.D. Attending: Teo Kuhn M.D. Procedure/Teaching Attestation: I, Dr. Kuhn was present for the entire procedure Preliminary report signed by: Dallas Canela at 11/14/2018 12:16 PM I have personally reviewed the image(s) and the residents interpretation and agree with the findings, Teo Chase MD at 11/14/2018 1:16 PM Thank you for letting us participate in the care of this patient. For questions regarding this report, please contact the number below. ? Narrative 11/14/2018 1:16 PM EDT NEURORADIOLOGY PROCEDURE NOTE Procedure: US-guided biopsy of a inferior left parotid mass Indication for Procedure: long standing hx of left parotid mass in patient with multiple medical problems; Exam/Procedure requested: FNA biopsy of mass. Consent: After discussing the risks (including infection, hemorrhage, damage to surrounding structures, nondiagnostic biopsy) and benefits, the patient consented to the procedure. Technique: Prior to beginning the procedure, a standard Time Out was performed. The patient was in the supine position. ??Initial grayscale and color Doppler images of the thyroid were used to localize the target and surrounding structures. The skin was prepped and draped in the usual sterile fashion. Local anesthesia provided with less than 5 mL of 1% lidocaine. Under ultrasound guidance, fine-needle aspirations were performed utilizing 25-gauge needles. The samples were evaluated by members of the cytopathology department for diagnostic quality prior to ending the procedure. Once sufficient samples were collected, the procedure was ended. The patient tolerated the procedure well. Medications: Lidocaine 1% <5 mL SQ EBL: 0 cc Complications: No immediate Specimens: 5 fine-needle aspirations of the nodule. Findings: Preprocedure ultrasound images demonstrated a hypoechoic heterogeneous echotexture lobulated mass inferior to the tail of the parotid. Position of the needle tip was confirmed in the target lesion by ultrasound. Procedure Note Teo Kuhn MD - 11/14/2018 NEURORADIOLOGY PROCEDURE NOTE Procedure: US-guided biopsy of a inferior left parotid mass Indication for Procedure: long standing hx of left parotid mass in patientwith multiple medical problems; Exam/Procedure requested: FNA biopsy of mass. Consent: After discussing the risks (including infection, hemorrhage,damage to surrounding structures, nondiagnostic biopsy) and benefits, the patient consented to the procedure. Technique: Prior to beginning the procedure, a standard Time Out wasperformed. The patient was in the supine position. Initial grayscale and colorDoppler images of the thyroid were used to localize the target and surrounding structures. The skin was prepped and draped in the usual sterile fashion.Local anesthesia provided with less than 5 mL of 1% lidocaine. Underultrasound guidance, fine-needle aspirations were performed utilizing 25-gaugeneedles. The samples were evaluated by members of the cytopathology department fordiagnostic quality prior to ending the procedure. Once sufficient samples werecollected, the procedure was ended. The patient tolerated the procedure well. Medications: Lidocaine 1% <5 mL SQ EBL: 0 cc Complications: No immediate Specimens: 5 fine-needle aspirations of the nodule. Findings: Preprocedure ultrasound images demonstrated a hypoechoicheterogeneous echotexture lobulated mass inferior to the tail of the parotid. Positionof the needle tip was confirmed in the target lesion by ultrasound. IMPRESSION Technically successful ultrasound-guided fine-needle aspiration of a inferior left parotid mass Operators: Fellow: Dallas Canela M.D. Attending: Teo Kuhn M.D. Procedure/Teaching Attestation: I, Dr. Kuhn was present for theentire procedure Preliminary report signed by: Dallas Canela at 11/14/2018 12:16 PM I have personally reviewed the image(s) and the residents interpretationand agree with the findings, Teo Chase MD at 11/14/2018 1:16 PM Thank you for letting us participate in the care of this patient. Forquestions regarding this report, please contact the number below. Electronically signed by: Teo Chase MD, [facility]([phone]), at 11/14/2018 1:16 PM Rafy Ty MD IMG IR ORDERABLES * Cytopathology Non-Gynecological (11/14/2018 11:18 AM EDT) AP Specimen 11/14/2018 11:1 8 AM EDT 11/14/2018 11:18 AM EDT Narrative [facility] - 11/14/2018 11:18 AM EDT Specimen requisition ordered. ??Separate Pathology report to follow Teo Kuhn MD PATHOLOGY/CYTOLOGY O RDERAMYRON [facility] [place] [address] * Specimen to Pathology (11/14/2018 11:09 AM EDT) AP Specimen 11/14/2018 11:0 9 AM EDT 11/14/2018 11:09 AM EDT Narrative [facility] - 11/14/2018 11:09 AM EDT Specimen requisition ordered. ??Separate Pathology report to follow Teo Kuhn MD PATHOLOGY/CYTOLOGY O MUMTAZ [facility] [place] [address] documented in this encounter Visit Diagnoses Diagnosis Parotid mass Swelling, mass, or lump in head and neck documented in this encounter Care Teams Coal Mine Inspector Relationship Specialty Start Date End Date Nayana Blankenship MD [address] [place] [id number] PCP - General 03/09/10 documented as of this encounter
--- OUTSIDE RECORDS SUMMARY | 2023-12-15 06:15 | XMS_ITS | Encounter Summary ---
Author [facility] [address] Care Team Providers Care Picker Box Operator Name Role Phone aNyana Blankenship MD Primary Care Provider [phone] Encounter Details Date Type Department Care Team (Late st Contact Info) Description 11/06/2018 Telephone [place] [phone] Marisabel Hamm Social History Tobacco Use Types Packs/Day Years [...] on filedocumented in this encounter Care Teams Picker Box Operator Relationship Specialty Start Date End Date Nayana Blankenship MD [address] [place] [address] PCP - General 03/09/10 documented as of this encounter
--- OUTSIDE RECORDS SUMMARY | 2023-12-15 06:15 | XMS_ITS | Encounter Summary ---
Author Organization [facility] Address [facility] [place] [address] Care Team Providers Care Payment Manager Name Role Phone Nayana Blankenship MD Primary Care Provider [phone] Encounter Details Date Type Department Care Team (Late st Contact Info) Description 11/27/2018 11:59 PM EDT [place]est[place] [address] Bella Ervin MD [facility] [place] [address] Dre Calderon MD [facility] [address] [place] [address] Anesthesia Record Procedure Summary Procedure Name Responsible Anesthesiologist Anesthesia Start Time Anesthesia Stop Time OFFICE VISIT Events No events on file. Meds * Agents No agents on file. * Blood No blood administrations on file. Lines, Drains, and Airways No LDAs on file. documented in this encounter Social History Tobacco [...] of this encounter OR Notes * Anesthesia Preprocedure Evaluation - Bella Ervin M - 11/27/2018 3:56 PM EDT Pre-Anesthesia Evaluation for: Kyleigh Caballero a 68 y.o. female. Patient Active Problem List Diagnosis ??? Obesity [...] CHF (congestive heart failure) ??? Chronic pain ??? COPD (chronic obstructive pulmonary disease) ??? Cryptogenic organizing pneumonia 06/03/2014 ??? Depression ??? GERD (gastroesophageal reflux disease) ??? Hepatitis C ??? High blood pressure ??? Hypertension ??? Liver disease ??? Mental health problem ??? Oxygen dependent ??? Transfusion history Past Surgical History: Procedure Laterality Date ??? CLAVICLE SURGERY broken left clavicle ??? IR BIOPSY PAROTID 11/14/2018 IR Biopsy Parotid 11/14/2018 Teo Kuhn MD [facility] INTERVENTIONL RAD ??? LUNG DECORTICATION 2/ strep milari empyema ??? NOSE SURGERY broken nose Social History Tobacco Use ??? Smoking status: Former Smoker Packs/day: 1.00 Years: 33.00 Pack years: 33.00 Types: e-Cigarettes ??? Smokeless tobacco: Current User Substance Use Topics ??? Alcohol use: No Comment: A few beers a week Social History Substance and Sexual Activity Drug Use No Allergies Allergen Reactions ??? Alendronate Sodium CIS - severe joint pain, CIS - severe joint pain, CIS - severe joint pain, CIS - severe joint pain ??? Atenolol CIS - DEPRESS,DIZZINESS, CIS - [...] file to calculate BMI. Airway Assessment: Mallampati: III Cardiovascular Assessment: Rhythm: regular Rate: normal Pulmonary Assessment: (+) decreased breath sounds Dental Assessment: - normal exam Misc Assessment: Anesthesia Plan ANE PAT Clinic Note: Date and Time of Entry: 11/27/2018 3:57 PM Entered By: Bella Ervin MD Reason for Evaluation: Surgeon Request PAT Visit Type: Interviewed in person Additional/Outside Records Requested? Requested medical information from outside organization. From Where? [facility] - pulmonary office visit Findings, Assessment and Plan: 68 yo female with h/o severe COPD on home 2L NC presenting for anesthesia evaluation prior to possible parotid tumor excision with Dr. Ty. Surgery has not yet been scheduled. She is planning tosee Dr. Ty later today for definitive planning. She follows with supervisor machining Dr. Queen at [facility] in [place], [place]. She last sawDr. Queen in April 2018. She uses 2L NC overnight and for 1-2 hrs in the morning. She reportsthat this regimen has been stable for years. She is able to walk 100 yards without significant SOB.She uses duonebs and trelegy at home, and albuterol PRN (mostly for seasonal allergies). She does not take steroids. She gets yearly CTs and PFTs as well. Her significant other reports that her functional status seems overall improved. The patient reports that she used to be hospitalized almost yearly for pneumonia, but has not been hospitalized in close to 4 years. She had strep milleri pneumonia in 02/2011 and underwent decortication at that time. She still uses e-cigarettes. Patient denies history of stroke, seizure, diabetes, thyroid disorder, heart disease, chronic kidney disease, or bleeding disorder. She takes amlodipine for HTN. She denies CP when walking 100 yards. Airway hx (2009): easy MV, mac 3 gr 1 PLAN: Ms. Caballero seems as optimized as possible from a pulmonary standpoint. She is stable on her oxygen and medication regimen, and feels like her functional status is stable as well Will get pulmonary office visit records from April 2018 Encouraged patient to meet with her supervisor machining prior to surgery for further optimization Tentative GETA for surgery - consent not signed today as no formal surgical plan has been made We discussed that she is at higher risk for prolonged intubation postop, possibly requiring ICU admission. She is understanding and willing to accept this Addendum 11/27/2018 (MD Jennifer): Pt seen/examined by me as well with Dr. Ervin. I agree in general with Dr. Ervin's note above. Recommend f/u with patient's current supervisor machining for continuity/optimization prior to surgery. ADDENDUM 11/29/18: Records from Ms. Caballero' supervisor machining visit from 04/2018 received and reviewed. She was stable at that time, started on trelegy. Chest CT showing moderate centrilobular emphysema. documented in this encounter Plan of Treatment Not on file documented as of this encounter Visit Diagnoses Not on filedocumented in this encounter Care Teams Payment Manager Relationship Specialty Start Date End Date Nayana Blankenship MD [address] [place] [address] PCP - General 03/09/10 documented as of this encounter
--- OUTSIDE RECORDS SUMMARY | 2023-12-15 06:15 | XMS_ITS ---
Author Organization Unknown Address [address] [place] [phone] Phone Care Team Providers Care What Job Titles Mean Name Role Phone VALENTINE HARRIS Attending Unavailable CONI Castellanos Primary Unavailable Social History Type Status Start Date End Date Code Code Syst em Smoking History Former smoker 04/17/19980339 6493536 SNOMED CT Sex Female Medications Medication Start Date End Date Route Frequency Dose Code Code System Medication Instructions Home Meds Multivitamin Oral Tablet 06/25/2015 Unknown ORAL DAILY 1 TABLET 6347559 RxNorm TAKE 1 TABLET ORAL DAILY Acetaminophen 500MG Oral Tablet 11/15/2020 04/15/20 23 ORAL NEEDED 500 MILLIGRAMS 339725 RxNorm TAKE 500 MILLIGRAMS ORAL NEEDED Amitriptyline 25MG Oral Tablet 11/15/2020 04/15/20 23 ORAL EVERY EVENING 25 MILLIGRAMS 958048 RxNorm TAKE 25 MILLIGRAMS ORAL EVERY EVENING Azithromycin 250MG Oral Tablet 11/15/2020 04/15/20 23 ORAL DAILY 250 MILLIGRAMS 105148 RxNorm TAKE 250 MILLIGRAMS ORAL DAILY Calcium 600 MG Oral Tablet 11/15/2020 04/15/20 23 ORAL DAILY 600 MG 185492 RxNorm TAKE 600 MG ORAL DAILY Diclofenac Sodium 1% Topical application Gel/Jelly 11/15/2020 04/15/20 23 TOPICAL APPLICATI ON NEEDED TWICE DAILY 1 APPL 713849 RxNorm 1 APPL TOPICAL APPLICATIO N NEEDED TWICE DAILY Docusate Sodium 100MG Oral Capsule, Liquid Filled 11/15/2020 04/15/20 23 ORAL TWICE A DAY 100 MILLIGRAMS 6437454 RxNorm TAKE 100 MILLIGRAMS ORAL TWICE A DAY Donepezil HCl 10MG Oral Tablet 11/15/2020 Unknown ORAL DAILY 10 MILLIGRAMS 448252 RxNorm TAKE 10 MILLIGRAMS ORAL DAILY Fexofenadine HCl 180MG Oral Tablet 11/15/2020 Unknown ORAL DAILY 180 MILLIGRAMS 904976 RxNorm TAKE 180 MILLIGRAMS ORAL DAILY Fluticasone Propionate 0.05MG/Actuati on Nasal [place] 11/15/2020 04/15/20 23 NASAL TWICE A DAY 1 SPRAY 0442716 RxNorm SPRAY 1 SPRAY NASAL TWICE A DAY Ibuprofen 200MG Oral Tablet 11/15/2020 04/15/20 23 ORAL NEEDED TWICE DAILY 600 MILLIGRAMS 659099 RxNorm TAKE 600 MILLIGRAMS ORAL NEEDED TWICE DAILY Imitrex 100MG Oral Tablet 11/15/2020 04/15/20 23 ORAL NEEDED 100 MILLIGRAMS 981933 RxNorm TAKE 100 MILLIGRAMS ORAL NEEDED Ipratropium [place] rol Sulfate 0.5MG/3ML-3MG/ 3ML Inhalation Solution 11/15/2020 04/15/20 23 INHALATIO N NEEDED TWICE DAILY 1 UNIT 9561982 RxNorm 1 UNIT INHALATION NEEDED TWICE DAILY Melatonin 10 MG Oral Capsule 11/15/2020 04/15/20 23 ORAL BEDTIME 10 MG 719596 RxNorm TAKE 10 MG ORAL BEDTIME Mirtazapine 15MG Oral Tablet 11/15/2020 04/15/20 23 ORAL BEDTIME 15 MILLIGRAMS 471844 RxNorm TAKE 15 MILLIGRAMS ORAL BEDTIME Omeprazole 40MG Oral Capsule, Delayed Release 11/15/2020 Unknown ORAL DAILY 40 MILLIGRAMS 978712 RxNorm TAKE 40 MILLIGRAMS ORAL DAILY PARoxetine HCl 20MG Oral Tablet 11/15/2020 04/15/20 23 ORAL DAILY 20 MILLIGRAMS 3869980 RxNorm TAKE 20 MILLIGRAMS ORAL DAILY Senna 8.6MG Oral Tablet 11/15/2020 04/15/20 23 ORAL NEEDED AT BEDTIME 8.6 MILLIGRAMS 802046 RxNorm TAKE 8.6 MILLIGRAMS ORAL NEEDED AT BEDTIME Singulair 10MG Oral Tablet 11/15/2020 04/15/20 23 ORAL EVERY EVENING 10 MILLIGRAMS 973078 RxNorm TAKE 10 MILLIGRAMS ORAL EVERY EVENING Trelegy Ellipta NA Inhalation Powder 11/15/2020 04/15/20 23 INHALATIO N DAILY 1 PUFF 3465335 RxNorm 1 PUFF INHALATION DAILY Vitamin D 2000 IU Oral Tablet 11/15/2020 04/15/20 23 ORAL WEEKLY 2000 IU 753414 RxNorm TAKE 2000 IU ORAL WEEKLY amLODIPine Besylate 10MG Oral Tablet 11/15/2020 Unknown ORAL DAILY 10 MILLIGRAMS 835206 RxNorm TAKE 10 MILLIGRAMS ORAL DAILY busPIRone 10MG Oral Tablet 11/15/2020 Unknown ORAL THREE TIMES A DAY 20 MILLIGRAMS 701362 RxNorm TAKE 20 MILLIGRAMS ORAL THREE TIMES A DAY predniSONE 20MG Oral Tablet 11/15/2020 04/15/20 23 ORAL DAILY 3 TABLET 714742 RxNorm TAKE 3 TABLET ORAL DAILY LORazepam 0.5MG Oral Tablet 04/17/2023 Unknown ORAL EVERY 6 HOURS 1 TABLET 461730 RxNorm TAKE 1 TABLET ORAL EVERY 6 [...] 1726 0408 21AD 5641 023 Active FDA [id number] 07/23/2025 FLEX SHOULD ER SYSTEM [id number] Total reverse shoulder prosthesis 0103 7003 8694 4543 1725 1213 21CZ 3920 3310 36 Active FDA [id number] 82591 03/29/2025 Aequal is(TM) Ascend (TM) Flex [id number] Total reverse shoulder prosthesis 0103 7003 8694 1054 1725 1211 2191 19AV 009 Active FDA [id number] 09 03/27/2025 FLEX SHOULD ER SYSTEM [id number] Reverse shoulder prosthesis head 0100 8468 3206 1891 1726 0325 21CZ 5121 0570 10 Active FDA [id number] 07/09/2025 AEQUAL IS(TM) PerFOR M Revers ed [id number] Reverse shoulder prosthesis base plate 0100 8468 3206 1884 1726 0611 2174 89AW 015 Active FDA [id number] W015 09/25/2025 AEQUAL IS(TM) PerFOR M Revers ed DIT103 Orthopaedi c bone screw, non-bioabs orbable, sterile 0100 8468 3206 2072 1726 0107 2132 33AW 004 Active FDA [id number] 04 04/23/2025 AEQUAL IS(TM) PerFOR M Revers ed [id number] Problems Problem Start Date Resolved Date Status Code Code System OBSTRUCTIVE CHRONIC BRONCHITIS WITH EXACERBATION active 072939011 SNOMED-CT ACUTE AND CHRONIC RESPIRATOR Y FAILURE active 34129183 SNOMED-CT COPD active 06056210 SNOMED-CT PLEURAL EFFUSION active 75353054 SNO MED-CT HEMOPTYSIS, UNSPECIFIED 11/13/2020 resolved 33093 005 SNOMED-CT SEPTICEMIA NOS 11/13/2020 resolved SNOM ED-CT OTHER AND UNSPECIFIED HYPERLIPIDEMIA 11/13/2020 resolved 30301401 SNOMED-CT LUMBAGO 11/13/2020 resolved 964383329 SNOMED-CT TRANSIENT ALTERED MENTAL STATUS 11/13/2020 resolved 520050424 SNOMED-CT CANDIDIASIS OF MOUTH 11/13/2020 resolved 65077347 SNOMED-CT CLOSED FRACTURE OF ONE RIB 11/13/2020 resolved 45 731766 SNOMED-CT PNEUMONIA 11/13/2020 resolved SNOMED-CT HYPOSMOLALITY AND/OR HYPONATREMIA 11/13/2020 resolved 607818028 SNOMED-CT Allergies and Adverse Reactions Allergy Substance Reaction Severity Start Date Concern Status Code Code System TRAZODONE Hallucinations (SNOMED-CT: 9140623) Moderate Active 92001 RxNorm LISINOPRIL Cough (SNOMED-CT: 46185541) Active 21889 RxNorm FOSAMAX Moderate Active 483349 RxNorm Plan of Treatment Pre-Op Testing 11/06/2020 Pre-Op Covid-19 Testing 03/21/2020 BONE DENSITY DEXA SPINE & HIP PRE-OP COVID-19 TESTING 01/10/2022 MM SCREEN BILAT 10/22/2021 CT CHEST W/O CONTRAST 05/31/2021 NM MPI STR/RST 07/22/2021 Encounters Encounter Diagnosis Start Date Code Code Sys tem Chronic obstructive pulmonary disease, unspecified SNOMED-CT Personal Care Team Section Performer Name Performer Role Active Date Inactive Da te
--- OUTSIDE RECORDS SUMMARY | 2023-12-15 06:15 | XMS_ITS | Encounter Summary ---
[facility] [place] [address] Care Team Providers Care Freight Flow Sales Leader Name Role Phone Nayana Blankenship MD Primary Care Provider [phone] Encounter Details Date Type Department Care Team (Late st Contact Info) Description 11/27/2018 2:40 PM EDT [place] [phone] Social History Tobacco Use Types Packs/Day Years [...] Sign Reading Time Taken Comments Blood Pressure - - Pulse 89 11/27/2018 3:17 PM EDT Temperature - - Respiratory Rate - - Oxygen Saturation 96% 11/27/2018 3:17 PM EDT Inhaled Oxygen Concentration - - Weight 83.8 kg (184 lb 12.8 oz) 11/27/2018 3:17 PM EDT Height 157.5 cm (5' 2) 11/27/2018 3:17 PM EDT Body Mass Index 33.8 11/27/2018 3:17 PM EDT documented in this encounter Progress Notes * Zeenat Lamb RN - 11/27/2018 2:40 PM EDT PAT questionnaire reviewed with patient and while in Pre Admission testing. Patient is oxygen dependent at night and prn at 2l. Patient seen here by anesthesia today. Pre-operative instruction booklet reviewed. Patient verbalizes a good understanding of all information. PLAN Testing: None ordered. Special medication instructions: n/a Procedure date: Not booked - Dr. Ty documented in this encounter Plan of Treatment Not on file documented as of this encounter Visit Diagnoses Not on filedocumented in this encounter Care Teams Freight Flow Sales Leader Relationship Specialty Start Date End Date Nayana Blankenship MD [address] [place] [address] PCP - General 03/09/10 documented as of this encounter
--- OUTSIDE RECORDS SUMMARY | 2023-12-15 06:15 | XMS_ITS | Encounter Summary ---
[facility] Organization [facility] [place] [address] Care Team Providers Care Wall Insulation Sprayer Name Role Phone Nayana Blankenship MD Primary Care Provider [phone] Encounter Details Date Type Department Care Team (Late st Contact Info) Description 11/01/2018 Tele[place] [phone] Cathy Serrano Social History Tobacco Use Types [...] on file documented as of this encounter Miscellaneous Notes * Telephone Encounter - Cathy Serrano - 11/01/2018 12:03 PM EDT Called IR [phone] and order is not ready to be scheduled yet. documented in this encounter Plan of Treatment Not on file documented as of this encounter Visit Diagnoses Not on filedocumented in this encounter Care Teams Wall Insulation Sprayer Relationship Specialty Start Date End Date Nayana Blankenship MD [address] [place], [place] [address] PCP - General 03/09/10 documented as of this encounter
--- OUTSIDE RECORDS SUMMARY | 2023-12-15 06:15 | XMS_ITS | Encounter Summary ---
Author Organization [facility] Address [facility] [place] [address] Care Team Providers Care Administrative Assistant Data Entry Name Role Phone Nayana Blankenship MD Primary Care Provider [phone] Reason for Referral * Diagnostic Test (Routine) - Closed Specialty Diagnoses / Procedures Referred By Contac t Referred To Contact Radiology Diagnoses Parotid mass Procedures CT Neck Soft Tissue w Contrast (Generic) Rafy Ty MD [facility] [place] [address] [facility] [place] [address] Referral ID Status Reason Start Date Expiration Date V isits Requested Visits Authorized [id number] Closed Specialty Service Requested 10/31/2018 10/31/2019 1 1 Reason for Visit * Diagnostic Test (Routine) - Closed Specialty Diagnoses / Procedures Referred By Contdejan t Referred To Contact Radiology Diagnoses Parotid mass Procedures CT Neck Soft Tissue w Contrast (Generic) Rafy Ty MD [facility] [place] [address] [facility] [place] [address] Referral ID Status Reason Start Date Expiration Date V isits Requested Visits Authorized [id number] Closed Specialty Service Requested 10/31/2018 10/31/2019 1 1 Encounter Details Date Type Department Care Team (Latest Contact Info) Description 11/27/2018 1:20 PM EDT - 11/27/2018 11:59 PM EDT Hospital Encounter CT Scan at [facility] [place] [address] Rafy Ty MD [facility] [place] [address] Parotid mass Discharge Disposition: Home Social History [...] on file documented as of this encounter Medications at Time of Discharge Medication Sig Dispensed Refills Start Date End Date diclofenac (VOLTAREN) 1 % Gel Apply topically as needed. fluticasone/umeclidin/ vilanter (TRELEGY ELLIPTA INHL) Inhale into the lungs daily. fexofenadine (DARCY ALLERGY) 180 mg Tablet Take 180 mg by mouth daily. omeprazole (PRILOSEC) 40 mg Capsule, Delayed Release(E.C.) Take 40 mg by mouth daily. busPIRone (BUSPAR) 10 mg Tablet Take 10 mg by mouth 3 times daily. azithromycin (ZITHROMAX) 250 mg Tablet Take 250 [...] mouth every morning. 90 tablet 3 11/20/2012 ipratropium-albuterol (DUONEB) 0.5 mg-3 mg(2.5 mg base)/3 mL nebulizer solution Take 3 mLs by nebulization every 4 hours as needed. ERGOCALCIFEROL, VITAMIN D2, (VITAMIN D ORAL) 05/14/2010 ibuprofen (ADVIL;MOTRIN) 800 mg tablet 800 MG = 1 Tablet(s), PO, Three times daily 05/14/2010 documented as of this encounter Plan of Treatment Not on file documented as of this encounter Procedures Procedure Name Priority Date/Time Associated Diagnosis Comments CT NECK SOFT TISSUE W CONTRAST Routine 11/27/2018 3:07 PM EDT Parotid mass documented in this encounter Results * CT Neck Soft Tissue w Contrast (Generic) (11/27/2018 3:07 PM EDT) Anatomical Region Laterality Modality Neck, Head Computed Tomogra phy Impressions 11/27/2018 5:55 PM EDT The large left parotid tail mass is significantly larger as described above. I have personally reviewed the image(s) and the residents interpretation and agree with the findings, Sky Kessler at 11/27/2018 5:55 PM Thank you for letting us participate in the care of this patient. For questions regarding this report, please contact the number below. ? Narrative 11/27/2018 5:55 PM EDT EXAMINATION: CT NECK SOFT TISSUE W CONTRAST (GENERIC) CLINICAL HISTORY: 68 yo F with multiple medical problems and long standing hx of left parotid mass. please assess for change since last CT done in 2014 TECHNIQUE: CT neck performed after the intravenous administration of contrast. Administered 110.0 ml of OMNIPAQUE 350.00 mg/ml. COMPARISON: CT neck 09/09/2014 FINDINGS: The heterogeneously enhancing mass arising from the tail the left parotid gland is larger measuring 3.0 x 3.6 x 4.1 cm compared to 3.0 x 2.3 x 3.0 cm. There is no extension into the deep lobe of the parotid gland. The mass abuts the anterolateral aspect of the sternocleidomastoid muscle without evidence for invasion. Carotid artery is not involved. No other masses. The other salivary glands are normal. Severe multilevel cervical degenerative changes have worsened. Visualized paranasal sinuses are clear. Visualized portions of the brain are unremarkable. There is no lymphadenopathy. Centrilobular emphysema is visualized in the lung apices. Thyroid is normal. No lymphadenopathy. No flow limiting stenoses. Procedure Note Sky Kessler MD - 11/27/2018 EXAMINATION: CT NECK SOFT TISSUE W CONTRAST (GENERIC) CLINICAL HISTORY: 68 yo F with multiple medical problems and long standinghx of left parotid mass. please assess for change since last CT done in 2014 TECHNIQUE: CT neck performed after the intravenous administration of contrast.Administered 110.0 ml of OMNIPAQUE 350.00 mg/ml. COMPARISON: CT neck 09/09/2014 FINDINGS: The heterogeneously enhancing mass arising from the tail the left parotidgland is larger measuring 3.0 x 3.6 x 4.1 cm compared to 3.0 x 2.3 x 3.0 cm.There is no extension into the deep lobe of the parotid gland. The mass abuts the anterolateral aspect of the sternocleidomastoid muscle without evidencefor invasion. Carotid artery is not involved. No other masses. The othersalivary glands are normal. Severe multilevel cervical degenerative changes have worsened. Visualized paranasal sinuses are clear. Visualized portions ofthe brain are unremarkable. There is no lymphadenopathy. Centrilobular emphysema is visualized in the lung apices. Thyroid isnormal. No lymphadenopathy. No flow limiting stenoses. IMPRESSION The large left parotid tail mass is significantly larger as describedabove. I have personally reviewed the image(s) and the residents interpretationand agree with the findings, Sky Kessler at 11/27/2018 5:55 PM Thank you for letting us participate in the care of this patient. Forquestions regarding this report, please contact the number below. Rafy Ty MD IMG CT ORDERABLES documented in this encounter Visit Diagnoses Diagnosis Parotid mass Swelling, mass, or lump in head and neck documented in this encounter Administered Medications Inactive Administered Medications - up to 3 most recent administrations Medication Order MAR Action Action Date Dose Rate Site iohexol (OMNIPAQUE) 350 mg/mL solution 0-200 mL 0-200 mL, Intravenous, ONCE PRN, 1 dose, Starting on Mon11/27/18 at 1508, Until Mon11/27/18 at 1509, Per Protocol, Warning Vesicant/Irritant Medication , Radiology Contrast, Routine Given 11/27/2018 3:09 PM EDT 110 mLs documented in this encounter Care Teams Administrative Assistant Data Entry Relationship Specialty Start Date End Date Nayana Blankenship MD [address] [place] [address] PCP - General 03/09/10 documented as of this encounter
--- OUTSIDE RECORDS SUMMARY | 2023-12-15 06:15 | XMS_ITS | Encounter Summary ---
Author Organization [facility] Address [facility] [place] [address] Care Team Providers Care University Controller Name Role Phone Nayana Blankenship MD Primary Care Provider [phone] Encounter Details Date Type Department Care Team (Late st Contact Info) Description 11/20/2018 Tele[place] [address] Rafy Ty MD [facility] [place] [address] Social History Tobacco Use Types Packs/Day Years [...] encounter Miscellaneous Notes * Telephone Encounter - Rafy Ty MD - 11/20/2018 5:48 PM EDT TELEPHONE CALL: This patient was last seen in May 2017 in regards to a left parotid mass that then she had for about 5 years. The patient has a complicated past medical history related to severeCOPD and oxygen dependence as a result of her smoking as well as history of repeated pneumonias. The patient called the office a few weeks ago in order to arrange an FNA of the parotid mass which I had recommended. This was done on November 14 and the cytology results follows: DIAGNOSIS Neoplastic Cells Present See discussion. Electronically signed by: ??Tyrone Sullivan MD Verified: ??11/15/2018 ?Cytopathologist Performed at: ??-[facility] Dept. of Pathology, [place], [place] DISCUSSION Parotid: left (US-guided FNA) - Benign. Hypocellular aspirate containing cytologically bland epithelioid cells (some with ??eccentric nuclei) as well as stroma; compatible with a pleomorphic adenoma. Patient was contacted and we discussed the findings of the FNA. The patient has an appointment withme in about 5 days. She expressed her wishes that she would like if possible to have the surgery done. We discussed that we would have the patient seen in anesthesia hopefully next Monday in order to optimize her appointments. documented in this encounter Plan of Treatment Not on file documented as of this encounter Visit Diagnoses Not on filedocumented in this encounter Care Teams University Controller Relationship Specialty Start Date End Date Nayana Blankenship MD [address] [place] [address] PCP - General 03/09/10 documented as of this encounter
--- OUTSIDE RECORDS SUMMARY | 2023-12-15 06:15 | XMS_ITS | Encounter Summary ---
Author Organization [facility] Address [address] [place] [address] Care Team Providers Care Loss Prevention Representative Name Role Phone Unavailable Primary Care Provider Unavailabl e Encounter Details Date Type Department Care Team (Late st Contact Info) Description 01/12/2010 Results Only [facility] Laboratory Services - [facility] ([facility] [address] [place] [address] Nayana Newberry MD [address] [place] [phone] Social History Tobacco Use Types Packs/Day Years Used Date Smoking Tobacco: Never Assessed Sex and Gender Information Value Date Recorded Sex Assigned at Not on file Gender Identity Not on file Sexual Orientation Not on file documented as of this encounter Plan of Treatment Not on file documented as of this encounter Procedures Procedure Name Priority Date/Time Associated Diagnosis Comments CYTOPATHOLOGY Routine 01/12/2010 0:00 EDT documented in this encounter Results * CYTOPATHOLOGY (01/12/2010 0:00 EDT) Pathology Report: CYTOPATHOLOGY REPORT ? Reports generated via electronic interface contain original data; ? however they are lacking the format of the original report. ? Caution should be taken when reading/interpreti ng unformatted reports. ? Name: ? ISRA CABALLERO ? Accession #: ? [id number] ? : ? 1950 (Age: 60) ??F ?Collect Date: ? 01/12/2010 ? Location: ? [facility] ? Receive Date: ? 01/14/2010 ? Provider: ?NAYANA NEWBERRY MD ? Copy to: ? Specimen/Source: ?Pap Test, Cervix/Endocervix, ThinPrep Imaging System ? with manual evaluation ? Last Menstrual Period: ? 12/01 ? Previous Gynecologic Pathology: ? Yes: Abnl x 1 ? Treatment History: ? Cryotherapy ? Other: ? HPVA - HPV testing requested if ASC-US on the current ThinPrep Pap test. ? SPECIMEN ADEQUACY ? Satisfactory for Evaluation ? - transformation zone component present ? GENERAL CATEGORIZATION ? Negative for Intraepithelial Lesion or Malignancy ? Document reviewed and electronically signed by: ? Du Chaudhari, CT(ASCP) ? Report Date: ??01/19/2010 13:46 ? End of Report ? [facility] 01/12/2010 01/14/2010 Nayana Newberry MD PATHOLOGY ORDERABLES [facility] [address] [place] [address] documented in this encounter Visit Diagnoses Not on filedocumented in this encounter
--- OUTSIDE RECORDS SUMMARY | 2023-12-15 06:15 | XMS_ITS | Encounter Summary ---
Author Organization [facility] Address [facility] [place] [address] Care Team Providers Care Breaker Tender Name Role Phone Nayana Blankenship MD Primary Care Provider [phone] Reason for Visit * Reason Comments Follow Up Surgery 7-10 day post op DoS 01/23 Encounter Details Date Type Department Care Team (Late st Contact Info) Description 01/31/2019 4:00 PM EDT Office Visit [place] [address] Rafy Ty MD [facility] [place] [address] Parotid mass Social History Tobacco Use Types Packs/Day Years [...] Taken Comments Blood Pressure - - Pulse - - Temperature - - Respiratory Rate - - Oxygen Saturation - - Inhaled Oxygen Concentration - - Weight 83.5 kg (184 lb) 01/31/2019 3:46 PM EDT Height 157.5 cm (5' 2) 01/31/2019 3:46 PM EDT Body Mass Index 33.65 01/31/2019 3:46 PM EDT documented in this encounter Progress Notes * Rafy Ty MD - 01/31/2019 4:00 PM EDT POST OP VISIT: She is seen in follow up of her left parotidectomy with facial nerve dissection done 1 week ago. She had a left parotid mass for some time. Mass had been asymptomatic. She had no major issue wince surgery. Pain 3-07/25. Used facelift dressing and had no issue. Numbness along course of greater auricular nerve. No facial nerve complaints Patient with hx of multiple medical problems. Past Medical History: Diagnosis Date ??? Anxiety [...] IR Biopsy Parotid 11/14/2018 Teo Kuhn MD [facility] INTERVENTIONL RAD ??? LUNG DECORTICATION 2/2 strep milari empyema ??? NOSE SURGERY broken nose ??? PRG SOMATOSENSORY TEST, ANY/ALL PER. NERVES, TRUNK OR HEAD Left 01/23/2019 FACIAL NERVE MONITORING, SETUP PERIPHERAL (WRVU 0.54) performed by Rafy Ty MD at [facility] MAIN OR ??? PRO EXC PAROTD, LAT LOBE, DISSECT 5TH NERV Left 01/23/2019 EXC.PAROTID TUMOR OR GLAND, LATERAL LOBE, W DISSECTION & PRESERVATION FACIAL NERVE (WRVU 17.16)performed by Rafy Ty MD at [facility] MAIN OR Patient Active Problem List Diagnosis Code ??? COPD J44.9 ??? Hypertension (HTN) I10 ??? Esophageal reflux (GERD) K21.9 ??? HCV (hepatitis C virus) B19.20 ??? Chronic pain syndrome G89.4 ??? Obesity (BMI 30.0-34.9) E66.9 ??? Anxiety and depression F41.9, F32.9 ??? On supplemental oxygen therapy--at night and prn during the day Z99.81 ??? Borderline diabetes mellitus R73.03 ??? 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 diclofenac (VOLTAREN) 1 % Gel, Apply topically as needed., Disp: , Rfl: ??? fluticasone/umeclidin/vilanter (TRELEGY ELLIPTA INHL), Inhale into the lungs daily., Disp: , Rfl: ??? fexofenadine (DARCY ALLERGY) 180 mg Tablet, Take 180 mg by mouth daily., Disp: , Rfl: ??? omeprazole (PRILOSEC) 40 mg Capsule, Delayed Release(E.C.), Take 40 mg by mouth daily., Disp: ,Rfl: ??? busPIRone (BUSPAR) 10 mg Tablet, Take 10 mg by mouth 3 times daily., Disp: , Rfl: ??? azithromycin (ZITHROMAX) 250 mg Tablet, Take 250 mg by mouth daily. Day1:take 2 tablets daily, Day 2-5:Take one tablet daily , Disp: , Rfl: ??? multivitamin (THERAGRAN) Tablet, Take 1 tablet by mouth daily., Disp: , Rfl: ??? montelukast (SINGULAIR) 10 mg Tablet, Take 10 mg by mouth nightly., Disp: , Rfl: ??? amitriptyline (ELAVIL) 75 mg tablet, Take 1 tablet by mouth nightly. (Patient taking differently: Take 100 mg by mouth nightly.), Disp: 90 tablet, Rfl: 3 ??? amlodipine (NORVASC) 10 mg tablet, Take 1 tablet by mouth daily., Disp: 30 tablet, Rfl: 3 ??? PARoxetine (PAXIL) 40 mg tablet, Take 1 tablet by mouth every morning., Disp: 90 tablet, Rfl: 3 ??? ipratropium-albuterol (DUONEB) 0.5 mg-3 mg(2.5 mg base)/3 mL nebulizer solution, Take 3 mLs by nebulization every 4 hours as needed., Disp: , Rfl: ??? ERGOCALCIFEROL, VITAMIN D2, (VITAMIN D ORAL), , Disp: , Rfl: ??? ibuprofen (ADVIL;MOTRIN) 800 mg tablet, 800 MG = 1 Tablet(s), PO, Three times daily, Disp: , Rfl: Allergies Allergen Reactions ??? Red Blood Cells Other (See Comments) Antibodies-Difficult to Crossmatch DO NOT REMOVE Please contact the Blood Bank at [phone] for questions. ??? Alendronate Sodium CIS - [...] NIGHTMARES, CIS - NIGHTMARES, CIS - NIGHTMARES Review of Systems: A comprehensive Review of Systems is completed and except as noted in the HPI isnegative for constitutional, neurologic, respiratory, cardiac, vascular, immune, GI, , MSK, endocrine, skin, and functional systems which are reviewed. Family History Problem Relation Age of Onset ??? Myocardial Infarction Father 62 ??? Coronary Artery Disease Father ??? Coronary Artery Disease Mother ??? Coronary Artery Disease Sister ??? Coronary Artery Disease Brother There is no pertinent family history of otolaryngology problems. Social History Socioeconomic History ??? Marital status: Spouse name: Not on file ??? Number of children: 3 ??? Years of education: Not on file ??? Highest education level: Not on file Occupational History ??? Not on file Social Needs ??? Financial resource strain: Not on file ??? Food insecurity: Worry: Not on file Inability: Not on file ??? Transportation needs: Medical: Not on file Non-medical: Not on file Tobacco Use ??? Smoking status: Former Smoker Packs/day: 1.00 Years: 33.00 Pack years: 33.00 Types: e-Cigarettes, Cigarettes ??? Smokeless tobacco: Never Used ??? Tobacco comment: quit 1999 Substance and Sexual Activity ??? Alcohol use: No Comment: A few beers a week ??? Drug use: No ??? Sexual activity: Never Lifestyle ??? Physical activity: Days per week: Not on file Minutes per session: Not on file ??? Stress: Not on file Relationships ??? Social connections: Talks on phone: Not on file Gets together: Not on file Attends confucianist service: Not on file Active member of club or organization: Not on file Attends meetings of clubs or organizations: Not on file Relationship status: Not on file ??? Intimate partner violence: Fear of current or ex partner: Not on file Emotionally abused: Not on file Physically abused: Not on file Forced sexual activity: Not on file Other Topics Concern ??? Not on file Social History Narrative ??? Not on file PHYSICAL EXAMINATION: Ht 157.5 cm (5' 2) Wt 83.5 kg (184 lb) BMI 33.65 kg/m?? Looks well, NAD, no facial asymmetry. Facial nerve completely intact. Incision looks good. THere is some whitish material in the post auricular fold. No pain. Sutures intact. All sutures removed. Well tolerated. 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 ?? (see Discussion.) ??- One lymph node with ?? no diagnostic abnormality recognized. Electronically signed by: ??MD Jacki, Sha Rivera Verified: ??01/25/2019 ?Pathologist Performed at: ??-[facility] [place] [facility] [place], [place], [place] DISCUSSION The pleomorphic adenoma shows mild polylobulation and patchy myxomatous features. No ??definite margin involvement is identified. A/P doing well post op, no medical issues. She is excited about how well she did and grateful of the care she received. Reviewed path: benign See 2 months or PRN documented in this encounter Plan of Treatment Not on file documented as of this encounter Visit Diagnoses Diagnosis Parotid mass Swelling, mass, or lump in head and neck documented in this encounter Care Teams Breaker Tender Relationship Specialty Start Date End Date Nayana Blankenship MD [address] [place] [address] PCP - General 03/09/10 documented as of this encounter
--- OUTSIDE RECORDS SUMMARY | 2023-12-15 06:15 | XMS_ITS | Encounter Summary ---
Author Organization [facility] Address [facility] [place] [address] Care Team Providers Care Family Practice Md Name Role Phone Nayana Blankenship MD Primary Care Provider [phone] Reason for Visit * Auth/Cert Specialty Diagnoses [...] Expiration Date Visits Re quested Visits Authorized [id number] 1 1 Encounter Details Date Type Department Care Team (Latest Contact Info) Description 01/23/2019 6:10 AM EDT - 01/24/2019 12:45 PM EDT Hospital Encounter [place] [address] Sanjeev Ty MD [facility] [place] [address] Parotid mass Discharge Disposition: Home Social History [...] Sign Reading Time Taken Comments Blood Pressure 123/40 01/24/2019 7:03 AM EDT Pulse 69 01/24/2019 7:03 AM EDT Temperature 36.6 ??C (97.9 ??F) 01/24/2019 7:03 AM ED T Respiratory Rate 16 01/24/2019 7:03 AM EDT Oxygen Saturation 98% 01/24/2019 7:03 AM EDT Inhaled Oxygen Concentration - - Weight 83.5 kg (184 lb 1.6 oz) 01/23/2019 6:25 A M EDT Height 157.5 cm (5' 2) 01/23/2019 6:25 AM EDT Body Mass Index 33.67 01/23/2019 6:25 AM EDT documented in this encounter Discharge Summaries * Isra Hawley MD - 01/24/2019 8:54 AM EDT OTOLARYNGOLOGY - HEAD & NECK SURGERY DISCHARGE SUMMARY General Info Patient Name: Kyleigh Caballero Patient Age: 69 y.o. Birthdate: 1950 Admit date: 01/23/2019 Discharge date: 01/24/19 Attending Physician: Sanjeev Ty MD Admission Info Diagnoses: Parotid tumor Operations/Major Procedures: Procedure(s) (LRB): EXC.PAROTID TUMOR OR GLAND, LATERAL LOBE, W DISSECTION & PRESERVATION FACIAL NERVE (WRVU 17.16)(Left) FACIAL NERVE MONITORING, SETUP PERIPHERAL (WRVU 0.54) (Left) History of Presentation: The below history was copied from the patient's most recent clinical visit from (11/27/18) / admission H&P (which was obtained through patient interview, review of relevant records, and/or discussion with referring provider) on 01/23 Kyleigh Caballero is a 68 y.o. 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 ?? She last saw Dr. Ty in May 2018. 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 She saw anesthesia today and has been cleared for surgery as her comorbid medical issues are optimized but has been recommendedto see the benzol operator prior to having surgery. Reason for Admission: routine post op care, pain control, PO intake Hospital Course: The patient tolerated the above procedure well and was admitted post-operatively for routine care. Her hospital course was uncomplicated and she was deemed medically stable for discharge home at 1 Day Post-Op. Prior to discharge her pain was controlled on oral pain meds and she was tolerating a Regular diet. Physical Exam on Discharge: General: NAD, non-ill appearing elderly woman laying in bed Face: Symmetric without dysmorphic features, dressing overlying L cheek incisions c/d/i Eyes: EOMI, conjunctiva healthy Ears: Auricles symmetric, no lesions Nose: Patent nares, grossly normal appearance Oral Cavity/Pharynx: Mucosa is pink, oropharynx symmetric Neck: Soft, trachea midline Chest: Unlabored breathing, regular rate Neuro: Alert & oriented, moving extremities x 4 Lab Data: Recent Labs 01/23/19 1050 WBC 7.0 HGB 11.6* HCT 35.5* PLATELET 303 NA 139 K 4.1 CL 102 CO2 27 BUN 8 CREATININE 0.73 Imaging and Other Studies: No results found. Discharge Info Discharge Condition: Stable Discharge to: Home Discharge Medications: Your Medications Continued medications with new dosing Dose Details amitriptyline 75 mg Tab Commonly known as: ELAVIL Take 1 tablet by mouth nightly. What changed: how much to take 75 mg Quantity: 90 tablet Refills: 3 VITAMIN D ORAL What changed: See the new instructions. Refills: 0 Continued medications, unchanged Dose Details DARCY ALLERGY 180 mg Tab Take 180 mg by mouth daily. Generic drug: fexofenadine 180 mg Refills: 0 amLODIPine 10 mg Tab Commonly known as: NORVASC Take 1 tablet by mouth daily. 10 mg Quantity: 30 tablet Refills: 3 azithromycin 250 mg Tab Commonly known as: ZITHROMAX Take 250 mg by mouth daily. Day1:take 2 tablets daily, Day 2-5:Take one tablet daily 250 mg Refills: 0 busPIRone 10 mg Tab Commonly known as: BUSPAR Take 10 mg by mouth 3 times daily. 10 mg Refills: 0 diclofenac 1 % Gel Commonly known as: VOLTAREN Apply topically as needed. Refills: 0 ibuprofen 800 mg Tab Commonly known as: ADVIL;MOTRIN 800 MG = 1 Tablet(s), PO, Three times daily Refills: 0 ipratropium-albuterol 0.5 mg-3 mg(2.5 mg base)/3 mL Nebu Commonly known as: DUONEB Take 3 mLs by nebulization every 4 hours as needed. 3 mL Refills: 0 montelukast 10 mg Tab Commonly known as: SINGULAIR Take 10 mg by mouth nightly. 10 mg Refills: 0 multivitamin Tab Commonly known as: THERAGRAN Take 1 tablet by mouth daily. 1 tablet Refills: 0 omeprazole 40 mg Cpdr Commonly known as: PriLOSEC Take 40 mg by mouth daily. 40 mg Refills: 0 PARoxetine 40 mg Tab Commonly known as: PAXIL Take 1 tablet by mouth every morning. 40 mg Quantity: 90 tablet Refills: 3 TRELEGY ELLIPTA INHL Inhale into the lungs daily. Refills: 0 Updated Allergies/ADRs: Allergies Allergen Reactions ??? Red Blood Cells Other (See Comments) Antibodies-Difficult to Crossmatch DO NOT REMOVE Please contact the Blood Bank at [phone] for questions. ??? Alendronate Sodium CIS - [...] NIGHTMARES, CIS - NIGHTMARES, CIS - NIGHTMARES Info for Patient Patient Instructions Instructions for Patient at Discharge: What to expect: You will have soreness which will improve over the next several days. The area around the incision may be numb. This should recover over the next few months. Medications: Pain Control - use acetaminophen (Tylenol) and/or ibuprofen (Motrin, Advil) as needed. You can take 500 mg to 650 mg of Tylenol every 4-6 hours as needed. Do not exceed 4g acetaminophen per day and do not drink alcohol while taking tylenol. You can also take 400 to 600 mg of Ibuprofen (Motrin,Advil) every 6 hours as needed. Incision Care: Your incision was closed with sutures/daniel. These will need to be removed in about 7-14 days, which will usually occur at your follow up appointment. Use diluted peroxide to clean the incision andapply antibiotic ointment twice daily. Keep the incision dry for the next two days. After that you may get the area wet and pat dry (it is okay to shower). Do not submerge the incision for at least 2 weeks. Wound Care: Change the wound dressing/packing according to the following instructions: you can change the gauzedressing twice daily and apply vaseline or aquaphor to the incision. Keep your wrap/dressing on as much as possible except for showering/bathing, etc. until your follow up appointment. Activity: A good rule of thumb is if it hurts don't do it. Keep your head elevated when lying flat. No heavy lifting or straining for the next week. No smoking, this is important for wound healing. Diet: Resume baseline diet Oral Care: For all patients who had major oral surgery, you will be given a script for Peridex Rinse your mouth out well with water after eating, then use the prescription mouthwash (Peridex/Chlorhexidine) every time after eating. You should also use this mouthwash first thing in the morning and just before be dtime. You can get Peridex on the $4 list at [facility]. You should call your doctor if you develop: -Increasing pain and redness -Increasing drainage from the wound -Fever > 38.5Celsius or 101 Fahrenheit -Bleeding Contact: -You can reach the ENT clinic at [phone] for appointment questions. For Dr. Ty or Dr. Easton patients-The ENT triage nurse is available at [phone] For all other attendings-The ENT triage nurse is available at [phone] -For urgent issues during evenings and weekends the ENT resident insulation cupola charger can be reached through [facility] at [phone] Follow Up: You will need to follow up with Dr. Ty in 7 days. This appointment has been requested. You will be notified once it is scheduled, if you do not already see it below. If you do not hear from us in a timely manner, please call to receive your date and time. You will also need to follow up with speech therapy and nutrition, which has been set up for you, as well. We will try our best to coordinate this with your other appointments. You will be notified once it is scheduled. If you do not see these appointments listed below and you don't hear from us farheen timely manner, please call . Currently Scheduled Appointments and VNA instructions: Future Appointments and Orders Future Appointments and Orders Future Appointments Provider Department Dept Phone 01/31/2019 4:00 PM Sanjeev Ty MD Otolaryngology at [facility] [place] Arrive at: [address] [phone] General Instructions None __ Primary Care Doctor: Nayana Blankenship MD [phone] Signed: Isra Hawley MD 01/24/2019 documented in this encounter Discharge Instructions * Patient Instructions* Isra Hawley MD - 01/24/2019 8:45 AM EDT Instructions for Patient at Discharge: What to expect: You will have soreness which will improve over the next several days. The area around the incision may be numb. This should recover over the next few months. Medications: Pain Control - use acetaminophen (Tylenol) and/or ibuprofen (Motrin, Advil) as needed. You can take 500 mg to 650 mg of Tylenol every 4-6 hours as needed. Do not exceed 4g acetaminophen per day and do not drink alcohol while taking tylenol. You can also take 400 to 600 mg of Ibuprofen (Motrin,Advil) every 6 hours as needed. Incision Care: Your incision was closed with sutures/daniel. These will need to be removed in about 7-14 days, which will usually occur at your follow up appointment. Use diluted peroxide to clean the incision andapply antibiotic ointment twice daily. Keep the incision dry for the next two days. After that you may get the area wet and pat dry (it is okay to shower). Do not submerge the incision for at least 2 weeks. Wound Care: Change the wound dressing/packing according to the following instructions: you can change the gauzedressing twice daily and apply vaseline or aquaphor to the incision. Keep your wrap/dressing on as much as possible except for showering/bathing, etc. until your follow up appointment. Activity: A good rule of thumb is if it hurts don't do it. Keep your head elevated when lying flat. No heavy lifting or straining for the next week. No smoking, this is important for wound healing. Diet: Resume baseline diet Oral Care: For all patients who had major oral surgery, you will be given a script for Peridex Rinse your mouth out well with water after eating, then use the prescription mouthwash (Peridex/Chlorhexidine) every time after eating. You should also use this mouthwash first thing in the morning and just before be dtime. You can get Peridex on the $4 list at [facility]. You should call your doctor if you develop: -Increasing pain and redness -Increasing drainage from the wound -Fever > 38.5Celsius or 101 Fahrenheit -Bleeding Contact: -You can reach the ENT clinic at [phone] for appointment questions. For Dr. Ty or Dr. Easton patients-The ENT triage nurse is available at [phone] For all other attendings-The ENT triage nurse is available at [phone] -For urgent issues during evenings and weekends the ENT resident insulation cupola charger can be reached through [facility] at [phone] Follow Up: You will need to follow up with Dr. Ty in 7 days. This appointment has been requested. You will be notified once it is scheduled, if you do not already see it below. If you do not hear from us in a timely manner, please call to receive your date and time. You will also need to follow up with speech therapy and nutrition, which has been set up for you, as well. We will try our best to coordinate this with your other appointments. You will be notified once it is scheduled. If you do not see these appointments listed below and you don't hear from us farheen timely manner, please call . Currently Scheduled Appointments and VNA instructions: Future Appointments and Orders Future Appointments and Orders Future Appointments Provider Department Dept Phone 01/31/2019 4:00 PM Sanjeev Ty MD Otolaryngology at [facility] [place] Arrive at: [address] [phone] documented in this encounter Medications at Time [...] daily 05/14/2010 documented as of this encounter Progress Notes * Bella Lopez RN - 01/24/2019 12:30 PM EDT The patient has met discharge criteria per policy. The After Visit Summary (AVS) and accompanying hand-outs have been reviewed with the patient, including: diet, activity, wound care, reportable sign and symptoms, medications, and follow-up. The patient verbalizes understanding at this time, opportunity for clarification provided. Patient???s pain level has been assessed and patient states that her level is tolerable at this time. Discharged home via car ride from her friend. * Louise Christopher RN - 01/23/2019 9:37 PM EDT MD Isaak Valdes made aware that patient took home dose of Zolpinex inhaler (which is not ordered in the [facility]) d/t asthma symptoms. Patient reports that her breathing is better after using the inhaler. Will continue to monitor patient. * Sanjeev Ty MD - 01/23/2019 4:30 PM EDT OTOLARYNGOLOGY - HEAD & NECK SURGERY POST OP CHECK Name: Kyleigh Caballero Age/Sex: 69 y.o. female Attending: Sanjeev Ty MD Hospital Day: 1 Day of Surgery Patient ID/Reason for Admission Kyleigh Caballero is a 69 y.o. female with COPD on home O2, CHF, chronic pain, HTN, GERD, HCV, anxiety/depression, now s/p parotid tumor excision on 01/23/19 Interval History Surgery: Procedure(s): EXC.PAROTID TUMOR OR GLAND, LATERAL LOBE, W DISSECTION & PRESERVATION [facility] N[facility]E [facility]) FACIAL NERVE MONITORING, SETUP PERIPHERAL (WRVU 0.54) Subjective/Events: Patient denies fever, chills, chest pain, shortness of breath, dizziness, headache, abdominal pain, nausea, vomiting, numbness, tingling. Pain well-controlled. No subjective complaints. Tolerating fluids and working on dinner. Was able to get OOB with assistance. [place] out. Vitals Last value 24hr Range Temperature: 36.7 ??C (98.1 ??F) Temp: [36.2 ??C (97.2 ??F)-37 ??C (98.6 ??F)] Heart Rate: 86 Heart Rate: [79-99] Blood Pressure: 125/62 BP: (119-167)/(59-82) Respiratory Rate: 16 Resp: [11-22] SpO2: 99 % SpO2: [91 %-100 %] Intake & Output Intake/Output Summary (Last 24 hours) at 01/23/2019 1659 Last data filed at 01/23/2019 1519 Gross per 24 hour Intake 1103 ml Output 660 ml Net 443 ml Physical Exam General: NAD, non-ill appearing elderly woman laying in bed Face: Symmetric without dysmorphic features, dressing overlying L cheek incisions c/d/i Eyes: EOMI, conjunctiva healthy Ears: Auricles symmetric, no lesions Nose: Patent nares, grossly normal appearance Oral Cavity/Pharynx: Mucosa is pink, oropharynx symmetric Neck: Soft, trachea midline Chest: Unlabored breathing, regular rate Neuro: Alert & oriented, moving extremities x 4 Labs Recent Labs 01/23/19 1050 WBC 7.0 HGB 11.6* HCT 35.5* PLATELET 303 NA 139 K 4.1 CL 102 CO2 27 BUN 8 CREATININE 0.73 Imaging No post op imaging. ASSESSMENT & PLAN Kyleigh Caballero is a 69 y.o. female s/p Procedure(s): EXC.PAROTID TUMOR OR GLAND, LATERAL LOBE, W DISSECTION & PRESERVATION FACIAL NERVE (WRVU 17.16) FACIAL NERVE MONITORING, SETUP PERIPHERAL (WRVU 0.54). Patient is doing well postoperatively. Admitting for observation overnight in [facility]. Continue with current care plan. __ Isra Hawley MD, PGY1 01/23/19 4:59 PM Please see Amion and contact on-call ENT internet sourcer for any issues ENT staff; I saw patient around 7PM and she feels great, normal facial nerve function, pain level 3/10. No newissues with breathing. ENT ATTENDING STAFF NOTE: I personally reviewed the above note including the documented history. I examined the patient, as well as reviewed personally all additional investigations. I agree with the outlined plan. Sanjeev Ty MD * Bella Lopez RN - 01/23/2019 12:27 PM EDT Patient Name: Kyleigh Caballero Patient Age: 69 y.o. Birthdate: 1950 Admit date: 01/23/2019 Attending Physician: Sanjeev Ty MD Kyleigh Caballero arrived to U4 from PACU @ 1212 via bed. Report received from LINDSEY Patel. Pt oriented to room and call light is within reach, educated on the importance of using prior to getting OOB. Pt is A&Ox4, VVS, IV fluids continued, HOB 30 degree maintained, 2 L of O2 NC, left neck incision covered with guaze- C/D/I. Pt rates pain 4/10-PRN pain meds offered. Will continue to monitor. * Yaneth Shea RN - 01/23/2019 11:17 AM EDT Pt arrived in PACU at 1032 noted to be restless at times but only c/o mild pain and dilaudid IVP given with noted effect. in to visit at 1115 and will await bed placement. Will call him when this occurs. 1130- Pt met phase 1 recovery at this time and pain is now tolerable at a level 2/10 Taking sips and chips without nausea. Spoke to LIZETH Morales and pt is an observation pt and orders for inpatient were placed incorrectly so will modify for bed placement. Handoff report given to LINDSEY Blanco in [facility] and pt brought to unit by PACU staff. documented in this encounter H&P Notes * Sanjeev Ty MD - 01/23/2019 7:23 AM EDT 24 hour update The patient's recent physical exam is reviewed. There are no changes to the physical findings or indications for the procedure.We reviewed again the perioperative course and post-operative instructions, as well as complications. There are no new changes in her respiratory status. Oxygen dependence remains at 2 lpm. Denies new episode of bronchitis or pneumonia. Patient has proper understanding of the goals and expectations of the surgery; and the patient's questions are answered. Sanjeev Ty MD Otolaryngology-Head and Neck Surgery documented in this encounter Miscellaneous Notes * Plan of Care - Bella Lopez RN - 01/24/2019 11:18 AM EDT Problem: Patient Care Overview Goal: Plan of Care Review Outcome: Ongoing (Interventions Implemented as Appropriate) 01/24/19 1109 Plan of Care Review Progress progress toward functional goals as expected Coping/Psychosocial Plan Of Care Reviewed With patient OUTCOME EVALUATION NOTE: OUTCOME SUMMARY: Patient has had a good day. Patient resting in between care this shift. AUO- see I&O flowhsheet. Pain adequately controlled with PRN pain meds-see JUN. Left neck incision covered with guaze and head wrap-C/D/I. IS use encouraged. Will continue to monitor. PLAN MOVING FORWARD: Encourage ambulation, monitor I&O's and pain, plan to D/C today INDIVIDUALIZED FALL PREVENTION INTERVENTIONS: Patient-specific fall risk factors per assessment: [current deficits]: Patient is at moderate risk for falls related to recent surgery, oxygen tubing, restless Assistance [level of assistance required for transfers and ambulation]: 1 Assist Supervision [direct monitoring required during toileting and ADLs]: Eyes on Surveillance [continuous indirect monitoring]: Purposeful rounding and call solis within reach. Patient-specific fall prevention interventions for sensory deficits provided, if applicable: [X] Yes CPG GOAL OUTCOME EVALUATION: Goal: Fall Prevention-Safe Patient Handling Outcome: Ongoing (Interventions Implemented as Appropriate) 01/24/19 110 Daily Care Interventions Self-Care Promotion independence encouraged;BADL personal objects within reach Restraint Interventions Safety Promotion/Fall Prevention activity supervised;nonskid shoes/slippers when out of bed;safety round/check completed Activity Activity Type activity adjusted per tolerance;ambulated to bathroom Activity Assistance Provided assistance, 1 person Assistive Device Utilized other (see comments) (with oxygen ) Positioning Body Position supine, head elevated;independent Méndez Fall Risk History of Falling 0 Secondary Diagnosis 15 Ambulatory Aids 0 Intravenous Therapy/Heparin/Saline Lock 20 Gait/Transferring 0 Mental Status 0 Score 35 OTHER Méndez Fall Risk Med Goal: Infection Control Outcome: Ongoing (Interventions Implemented as Appropriate) 01/24/191108 Safety Interventions Isolation Precautions standard precautions maintained Infection Prevention rest/sleep promoted;single patient room provided Coping Strategies Supportive Measures active listening utilized;self-care encouraged Goal: Discharge Needs Assessment Outcome: Ongoing (Interventions Implemented as Appropriate) 01/24/191108 Discharge Needs Assessment Concerns To Be Addressed no discharge needs identified Readmission Within The Last 30 Days no previous admission in last 30 days Equipment Needed After Discharge none Current Health Anticipated Changes Related to Illness none Living Environment Transportation Available car;family or friend will provide Activity/Self Care Review of Systems Equipment Currently Used at Home oxygen Goal: Interdisciplinary Rounds/Family Conf Outcome: Ongoing (Interventions Implemented as Appropriate) 01/24/191108 Interdisciplinary Rounds/Family Conf Participants nursing;patient;pharmacy * Plan of Care - Louise Christopher RN - 01/24/2019 1:43 AM EDT Problem: Patient Care Overview Goal: Plan of Care Review OUTCOME EVALUATION NOTE: OUTCOME SUMMARY: Patient rested between care this shift. Patient voiding frequently throughout the night (see I&O flowhsheet). Pain adequately controlled with PRN pain meds (see MAR). IS use encouraged. Patient refused to sleep with the HOB at 30+ degrees however her head was slightly elevated and on a pillow. No signs or symptoms of acute distress at this time. Will continue to monitor. PLAN MOVING FORWARD: Pain control, frequent voiding, discharge planning INDIVIDUALIZED FALL PREVENTION INTERVENTIONS: Patient-specific fall risk factors per assessment: [current deficits]: Oxygen tubing, impulsive Assistance [level of assistance required for transfers and ambulation]: SBA Supervision [direct monitoring required during toileting and ADLs]: Eyes on Surveillance [continuous indirect monitoring]: Pulse oximetry, purposeful rounding Patient-specific fall prevention interventions for sensory deficits provided, if applicable: [X] N/A CPG GOAL OUTCOME EVALUATION: * Op Note - Sanjeev Ty MD - 01/23/2019 7:09 PM EDT [facility] [place] Operative Note Patient Name: Kyleigh Caballero : [id number] MR#: [id number] Case Date: 01/23/2019 Surgeon: Surgeon(s) and Role: * Sanjeev Ty MD - Primary * Pete Morales PA - Physician Printing Table Worker Preoperative diagnosis: Parotid Mass Postoperative diagnosis: Parotid Mass Procedure(s) (LRB): EXC.PAROTID TUMOR OR GLAND, LATERAL LOBE, W DISSECTION & PRESERVATION FACIAL NERVE (WRVU 17.16)(Left) FACIAL NERVE MONITORING, SETUP PERIPHERAL (WRVU 0.54) (Left) Anesthesia: General Estimated Blood Loss: 15 mL Specimens removed during surgery: Order Name Source Comment Collection Info Order Time SPECIMEN TO PATHOLOGY Parotid Mass left superficial parotidectomy excision 01/23/2019 9:26 AM Time specimen removed from patient: 9:26 AM Number of tissue samples (in container) 1 Drains: * No LDAs found * Surgical Closure: Primary Closure - skin incision is completely closed without any wires, lit, drains or other devices Disposition: awakened from anesthesia, extubated and taken to the recovery room in a stable condition, having suffered no apparent untoward event. Condition: doing well without problems (Please see the Surgical Encounter Summary for any Implant and Specimen details pertinent to this patient.) HPI/Surgical Indications: 69-year-old female with multiple comorbidities including oxygen dependentCOPD, obesity, cardiac disease, with long-standing history of a left parotid gland tumor which has grown in size. Patient was optimized medically preoperatively prior to being taken to the OR for this parotidectomy. Procedure Description: After the patient was identified she is taken to the operating and placed supine position. General anesthesia was secured and monitoring induced as necessary by anesthesia. Thebed was turned 180 degrees from anesthesia and the head turned towards the right side. The timeout was completed as per standard. Visual nerve monitoring electrodes were placed on the face to monitor the orbicularis oculi and the orbicularis mansi in a standard montage and monitoring was used throughout the case. The patient's left face was then prepped and draped in a standard fashion for a parotidectomy. A modified Jono incision in the pretragal fold extending into the first cervical right-sided was fashioned on the patient's left neck and infiltrated using 1% lidocaine with 100,000 epinephrine with good vasoconstrictive effect. The cervical portion of the Jono incision was then begun since the patient's tumor was located fairly low in her parotid region and was located just posterior to the submandibular gland. At that point the fascial layer over the parotid was extended and dissected to the anterior border of the sternomastoid muscle. We then continued the elevation of the inferior most aspect of the parotid gland and at that point started the dissection of the nerve by identifying the marginal branch of the facialnerve and its passage over the submandibular gland. The nerve was stimulated to confirm its integrity. The nerve was then traced in a retrograde fashion and as the retrograde dissection proceeded we confirm integrity of the facial nerve with the press probe. We then continued the dissection into the mid lower portion of the parotid gland and as we proceeded more approximately identified a second lower branch of the facial nerve which was again dissected in a retrograde fashion. As we proceeded with this retrograde dissection the tumor was identified and we noted that the capsule of the tumor was adherent to the facial nerve on its lateral surface. There is still remained a clear plane and as the dissection of the facial nerve through the parotid gland continued were able to mobilize the tumor off the inferior half of the parotid gland away from the to inferior most divisions. At that point the parotidectomy specimen was submitted for pathologic evaluation. We then copiously irrigated the wound. Hemostasis was achieved. We confirmed the final count of the procedure. At that point the wound was closed using a 3-0 Vicryl in interrupted fashion for the cervical portion of the closure followed by using a running 4-0 Prolene suture. A facelift dressing was placed. Care of the patient was then transferred to anesthesia with the patient was extubated and then transferred to the PACU for recovery. Since this case requires an assistant art director, and that no resident was available, a physician assistant art director was present for the case. Infection Bundle used? No Attestation: Case Date: 01/23/2019 I performed this procedure without the involvement of a resident. SANJEEV TY MD 01/23/2019 * Brief Op Note - Sanjeev Ty MD - 01/23/2019 10:06 AM EDT Brief Operative Note Patient Name: Kyleigh Caballero : [id number] MR#: [id number] Case Date: 01/23/2019 Surgeon: Surgeon(s) and Role: * Sanjeev Ty MD - Primary * Pete Morales PA - Physician Printing Table Worker Preoperative diagnosis: LEFT Parotid Mass Postoperative diagnosis: LEFT Parotid Mass Procedure(s) (LRB): EXC.PAROTID TUMOR OR GLAND, LATERAL LOBE, W DISSECTION & PRESERVATION FACIAL NERVE (WRVU 17.16)(Left) FACIAL NERVE MONITORING, SETUP PERIPHERAL (WRVU 0.54) (Left) Anesthesia: General Findings: large nearly 5 cm mass of the left lower parotid gland. Mass against the cervical and marginal branches of the facial nerve as well as well encapsulated. Facial nerve stimulated without difficulty Complications: none Intake: Intraprocedure Crystalloid Total Lactated Ringers Volume (mL) 800 mL Transfusion No data found in the last 1 encounters. Output: Estimated Blood Loss: 15 mL Urine Output:: 100 mL Other Output: (no other output recorded) Drains: none. Facelift dressing Specimens removed during surgery: Order Name Source Comment Collection Info Order Time SPECIMEN TO PATHOLOGY Parotid Mass left superficial parotidectomy excision 01/23/2019 9:26 AM Time specimen removed from patient: 9:26 AM Number of tissue samples (in container) 1 Disposition: awakened from anesthesia, extubated and taken to the recovery room in a stable condition, having suffered no apparent untoward event. Condition: doing well without problems Attestation: Case Date: 01/23/2019 I performed this procedure without the involvement of a resident. (Please see the Surgical Encounter Summary for any Implant and Specimen details pertinent to this patient.) documented in this encounter Plan of Treatment Not on file documented as of this encounter Procedures Procedure Name Priority Date/Time Associated Diagnosis Comments HEMOGRAM Routine 01/23/2019 10:50 AM EDT DIFFERENTIAL, AUTOMATED Routine 01/23/2019 10:50 AM EDT HC CREATININE Routine 01/23/2019 10:50 AM EDT HC CBC,PLT & AUTO DIFF Routine 9 10:50 AM EDT HC UREA NITROGEN, SERUM Routine 01/23/2019 10:50 AM EDT ELECTROLYTES PANEL Routine 01/23/2019 10 :50 AM EDT EXC.PAROTID TUMOR OR GLAND, LATERAL LOBE, W DISSECTION & PRESERVATION FACIAL NERVE Routine 01/23/2019 10:17 AM EDT Parotid mass SURGICAL PATHOLOGY REPORT Routine 01/23/2019 9:26 AM EDT SPECIMEN TO PATHOLOGY Routine 01/23/2019 9:26 AM EDT Somatosensory Test, Any/All Per. Nerves, Trunk Or Head ([id number]) 01/23/2019 7:31 AM EDT Parotid mass Exc Parotd, Lat Lobe, Dissect 5Th Nerv ([id number]) 01/23/2019 7:31 AM EDT Parotid mass FACIAL NERVE MONITORING, SETUP Routine 01/23/2019 6:14 AM EDT Parotid mass documented in this encounter Results * (ABNORMAL) Differential, Automated (01/23/2019 10:50 AM EDT) Neutrophil % 78.4 % [facility] Neutrophil Absolute 5.47 1.70 - 6.10 x10(3)/ L [facility] Lymph % 16.3 % [facility] Lymphocytes Abs 1.1 0.9 - 3.2 x10(3)/[facility] Monocyte % 3.0 % [facility] Monocyte Abs 0.2(L) 0.3 - 0.9 x10(3)/[facility] Eos % 0.9 % [facility] Eosinophils Abs 0.1 0.0 - 0.4 x10(3)/[facility] Basophil % 0.7 % [facility] Baso Absolute 0.0 0.0 - 0.1 x10(3)/[facility] Immature Gran % 0.70 % [facility] Comment: Immature granulocytes(IG's)percentage and absolute count will include metamyelocytes, myelocytes, and promyelocytes. Blood smears from CBCs yielding IG's will be scanned manually for concordance. If this scan disagrees with the automated IG or if promyelocytes are noted, a manual differential will be performed. Immature Gran Absolute 0.05(H) 0.00 - 0.04 x10(3)/[facility] Blood specimen (specimen) 01/23/2019 10:50 AM EDT 01/23/2019 11:05 AM EDT Narrative Resulting Agency Comment Spec In Lab Pete FINK HEMATOLOGY ORDERABL ES [facility] [place] [address] * (ABNORMAL) Hemogram (01/23/2019 10:50 AM EDT) White Blood Cell 7.0 4.0 - 9.5 x10(3)/[facility] Red Blood Cell 3.79(L) 4.00 - 5.21 x10(6)/[facility] Hemoglobin 11.6(L) 11.7 - 15.5 gm/dL [facility] Hematocrit 35.5(L) 35.7 - 45.8 % [facility] Mean Cell Volume 93.7 82.6 - 94.4 fL [facility] Mean Cell Hemoglobin 30.6 27.1 - 32.0 pg [facility] Mean Cell Hemoglobin Concentration 32.7 31.7 - 35.0 gm/dL [facility] Platelet 303 145 - 357 x10(3)/mc L [facility] RDW Standard Deviation 43.1 37.0 - 46.0 fL [facility] RDW coefficient of variation 12.5 11.5 - 14.1 % [facility] Mean Platelet Volume 9.2 7.6 - 12.9 fL [facility] NRBC% auto 0.0 % [facility] NRBC Absolute 0.000 0.000 - 0.000 x10(3)/mc L [facility] Blood specimen (specimen) 01/23/2019 10:50 AM EDT 01/23/2019 11:05 AM EDT Narrative Resulting Agency Comment Spec In Lab Pete FINK HEMATOLOGY ORDERABL ES [facility] [place] [address] * Electrolytes panel (01/23/2019 10:50 AM EDT) Sodium 139 135 - 145 mmol/L [facility] Potassium 4.1 3.5 - 5.0 mmol/L [facility] Comment: Please note: ??Patients with WBC >100,000 may have falsely elevated Potassium levels. ??For accurate Potassium quantification in these patients send serum separator tube (gold top) for subsequent determinations. ??Contact the Clinical Chemistry Laboratory if there are any questions. Chloride 102 98 - 107 mmol/L [facility] Carbon Dioxide 27 22 - 31 mmol/L [facility] Anion Gap 10 5 - 15 mmol/L [facility] Blood specimen (specimen) 01/23/2019 10:50 AM EDT 01/23/2019 11:05 AM EDT Narrative Resulting Agency Comment Spec In Lab Sanjeev Ty MD CHEMISTRY ORDERABLE S Performing Organization Address City/[facility]/ZIP Co de Phone Number [facility] [place] [address] * Creatinine (01/23/2019 10:50 AM EDT) Creatinine 0.73 0.70 - 1.20 mg/dL [facility] Est Glomerular Filtration Rate 85 >=60 mL/min/1.7 3 m?? [facility] Comment: The eGFR was calculated using the CKD-EPI equation. As with all creatinine based estimates of kidney function, eGFR values calculated with the CKD-EPI equation are not accurate in patients with acute kidney failure, extremes of body mass or the acutely ill. http://[employer]/[facility] [place] CITYnkf eGFR 98 >=60 mL/min/1.7 3 m?? [facility] Comment: The eGFR was calculated using the CKD-EPI equation. As with all creatinine based estimates of kidney function, eGFR values calculated with the CKD-EPI equation are not accurate in patients with acute kidney failure, extremes of body mass or the acutely ill. [email or web address] Blood specimen (specimen) 01/23/2019 10:50 AM EDT 01/23/2019 11:05 AM EDT Narrative Resulting Agency Comment Spec In Lab Sanjeev Ty MD CHEMISTRY ORDERABLE S Performing Organization Address City/[facility]/ZIP Co de Phone Number [facility] [place] [address] * BUN (01/23/2019 10:50 AM EDT) Blood Urea Nitrogen 8 8 - 18 mg/dL [facility] Blood specimen (specimen) 01/23/2019 10:50 AM EDT 01/23/2019 11:05 AM EDT Narrative Resulting Agency Comment Spec In Lab Sanjeev Ty MD CHEMISTRY ORDERABLE S [facility] [place] [address] * Surgical Pathology Report (01/23/2019 9:26 AM EDT) Final Diagnosis [id number] ? Location: [facility]; [facility]; The signing pathologist has (i) examined the relevant preparation(s) for the specimen(s) and (ii) rendered or confirmed the diagnosis(es). . 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 ?? (see Discussion.) - One lymph node with ?? no diagnostic abnormality recognized. Electronically signed by: ??MD Jacki, Sha Rivera Verified: ??01/25/2019 ?Pathologist Performed at: ??-[facility] [place] Dept. of Pathology, [place], [place] DISCUSSION The pleomorphic adenoma shows mild polylobulation and patchy myxomatous features. No definite margin involvement is identified. CLINICAL INFORMATION Specimen Submitted: A - Left superficial parotidectomy Clinical History and Diagnosis: Parotid mass SPECIMEN PROCESSING A - Labeled/Fixative: Left superficial parotidectomy, fresh. Quantity/Size: Single, 5.0 x 4.5 x 3.0 cm. Tissue Description: Irregular, pink-red soft tissue. The margin is marked with black ink on section there is an underlying circumscribed, meza-white mass, 3.8 x 2.8 x 2.6 cm. Sections/Processi ng: Chief Environmental Commitment Officer sections in 6 cassettes labeled A1-A6. ??PPS/vb 01/25/2019 2:24 PM EDT [facility] PAROTID GLAND STRUCTURE / Unknown 01/23/2019 9:26 AM EDT 01/23/2019 9:26 AM EDT Sanjeev Ty MD PATHOLOGY/CYTOLOGY ORDERABLES Performing Organization Address City/[facility]/ZIP Co de Phone Number [facility] [place] [address] * Specimen to Pathology (01/23/2019 9:26 AM EDT) AP Specimen 01/23/2019 9:26 AM EDT 01/23/2019 9:26 AM EDT Narrative [facility] - 01/23/2019 9:26 AM EDT Specimen requisition ordered. ??Separate Pathology report to follow Sanjeev Ty MD PATHOLOGY/CYTOLOGY ORDERABLES Performing Organization Address City/[facility] [place] [place] [address] documented in this encounter Visit Diagnoses Diagnosis Parotid mass Swelling, mass, or lump in head and neck Parotid tumor Neoplasm of unspecified nature of digestive system documented in this encounter Admitting Diagnoses Diagnosis Parotid tumor Neoplasm of unspecified nature of digestive system documented in this encounter Administered Medications Inactive Administered Medications - up to 3 most recent administrations Medication Order MAR Action Action Date Dose Rate Site acetaminophen (TYLENOL) tablet 1,000 mg 1,000 mg, Oral, EVERY 6 HOURS PRN, Starting on Mon01/23/19 at 1046, Until Mon01/24/19 at 1450, Pain, for MODERATE pain (4-6), Should be used concomitantly if other analgesics are ordered. Do not exceed 4,000 mg in 24 hours, Routine Given 01/24/2019 6:48 AM EDT 1,000 mg Given 01/24/2019 12:46 AM EDT 1,000 mg Given 01/23/2019 6:48 PM EDT 1,000 mg amitriptyline (ELAVIL) tablet 100 mg 100 mg, Oral, NIGHTLY, First dose on Mon01/23/19 at 2100, Until Discontinued, Routine Given 01/23/2019 9:06 PM EDT 100 mg amLODIPine (NORVASC) tablet 10 mg 10 mg, Oral, DAILY, First dose on Mon01/24/19 at 0800, Until Discontinued, Routine Given 01/24/2019 8:1 9 AM EDT 10 mg busPIRone (BUSPAR) tablet 10 mg 10 mg, Oral, 2 TIMES DAILY, First dose on Mon01/23/19 at 2100, Until Discontinued, Routine Given 01/24/2019 8:19 AM EDT 10 mg Given 01/23/2019 9:05 PM EDT 10 mg docusate sodium (COLACE) capsule 100 mg 100 mg, Oral, 2 TIMES DAILY, First dose on Mon01/23/19 at 1245, Until Discontinued, Routine Given 01/24/2019 8:19 AM EDT 100 mg Given 01/23/2019 9:05 PM EDT 100 mg Given 01/23/2019 12:47 PM EDT 100 mg heparin (Porcine) subcutaneous injection 5,000 Units 5,000 Units, Subcutaneous, EVERY 8 HOURS SCHEDULED, First dose on Mon01/23/19 at 1400, Until Discontinued, Routine Given 01/24/2019 6:48 AM EDT 5,000 Unit s Given 01/23/2019 9:06 PM EDT 5,000 Units Given 01/23/2019 1:47 PM EDT 5,000 Units HYDROmorphone (DILAUDID) injection 0.2-0.4 mg 0.2-0.4 mg, Intravenous, EVERY 5 MIN PRN, Starting on Mon01/23/19 at 0942, Until Mon01/23/19 at 1138, Pain, Give 0.2 mg every 5 minutes PRN for mild to moderate pain (1-5) Give 0.4 mg every 5 minutes PRN for moderate to severe pain (6-10). Hold for respiratory rate less than 10 per minute. Maximum dose 4 mg over one hour. If multiple pain medications are ordered, start with hydromorphone or morphine and use fentanyl for breakthrough pain., PACU Recovery, Routine Given 01/23/2019 11:07 AM EDT 0.2 mg ibuprofen (ADVIL;MOTRIN) tablet 800 mg 800 mg, Oral, EVERY 6 HOURS PRN, Starting on Mon01/23/19 at 1046, Until Nay 01/24/19 at 1450, Pain, for MODERATE pain (4-6), Should be used concomitantly if other analgesics are ordered. Do not administer with ketorolac., Routine Given 01/24/2019 7:32 AM EDT 800 mg Given 01/23/2019 9:05 PM EDT 800 mg Given 01/23/2019 1:46 PM EDT 800 mg ipratropium-albuterol (DUONEB) 0.5 mg-3 mg(2.5 mg base)/3 mL nebulizer solution 3 mL 3 mL, Nebulization, EVERY 4 HOURS PRN, Starting on Mon01/23/19 at 1046, Until Mon01/24/19 at 1450, Wheezing, Routine Given 01/23/2019 7:25 PM EDT 3 mLs montelukast (SINGULAIR) tablet 10 mg 10 mg, Oral, NIGHTLY, First dose on Mon01/23/19 at 2100, Until Discontinued, Routine Given 01/23/2019 9:06 PM EDT 10 mg ondansetron (ZOFRAN) injection 4 mg 4 mg, Intravenous, EVERY 8 HOURS PRN, Starting on Mon01/23/19 at 1222, Until Nay 01/24/19 at 1450, Nausea, May repeat times one in 30 minutes if ineffective. If multiple antiemetics are ordered, use ondansetron first, Recovery (Recovery-Hospital Unit) ondansetron (ZOFRAN) tablet 4 mg 4 mg, Oral, EVERY 8 HOURS PRN, Starting on Mon01/23/19 at 1222, Until Nay 01/24/19 at 1450, Nausea, Vomiting, If multiple antiemetics are ordered, use ondansetron first. PO Preferred. If patient unable to take PO, may give IV if ordered. May repeat times one in 45 minutes if ineffective., Recovery (Recovery-Hospital Unit), Routine pantoprazole (PROTONIX) tablet 20 mg 20 mg, Oral, DAILY, First dose on Mon01/24/19 at 0800, Until Discontinued Given 01/24/2019 8:20 AM EDT 20 mg PARoxetine (PAXIL) tablet 40 mg 40 mg, Oral, EVERY MORNING, First dose on Mon01/24/19 at 0800, Until Discontinued, Routine Given 01/24/2019 8:20 AM EDT 40 mg sodium chloride 0.9% infusion 1,000 mL, at 100 mL/hr, Intravenous, CONTINUOUS, Starting on Mon01/23/19 at 1100, Until Mon01/23/19 at 1703 New Bag 01/23/2019 10:50 AM EDT 1,000 mLs 100 mL/hr documented in this encounter Active and Recently Administered Medications Times are shown in EDT. Scheduled Medication Order 01/22/2019 01/23/2019 01/24/2019 amitriptyline (ELAVIL) tablet 100 mg 100 mg, Oral, NIGHTLY, First dose on Mon01/23/19 at 2100, Until Discontinued, Routine 210 (Given - Provider: Louise Christopher RN) amLODIPine (NORVASC) tablet 10 mg 10 mg, Oral, DAILY, First dose on Mon01/24/19 at 0800, Until Discontinued, Routine 08 (Given - Provid er: Bella Lopez RN - Comment: BP 119/90) busPIRone (BUSPAR) tablet 10 mg 10 mg, Oral, 2 TIMES DAILY, First dose on Mon01/23/19 at 2100, Until Discontinued, Routine 210 (Given - Provider: Louise Christopher RN) 08 (Given - Provider: Bella Lopez RN) docusate sodium (COLACE) capsule 100 mg 100 mg, Oral, 2 TIMES DAILY, First dose on Mon01/23/19 at 1245, Until Discontinued, Routine 1247 (Given - Provider: Bella Lopez RN)210 (Given - Provider: Louise Christopher RN) 0819 (Given - Provider: Bella Lopez, LINDSEY) fuwxzhgvwhc-qnwnpunhf-fjjs nter 100-62.5-25 mcg DsDv 1 Inhalation 1 .Inhalation , Inhalation, DAILY, First dose on Mon01/24/19 at 0900, Until Discontinued 0900 (Not Given - Provider: Bella Lopez RN - Reason: Medication not available) heparin (Porcine) subcutaneous injection 5,000 Units 5,000 Units, Subcutaneous, EVERY 8 HOURS SCHEDULED, First dose on Mon01/23/19 at 1400, Until Discontinued, Routine 1347 (Given - Provider: Bella Lopez RN)210 (Given - Provider: Louise Christopher RN) 0648 (Given - Provider: Louise Christopher RN) montelukast (SINGULAIR) tablet 10 mg 10 mg, Oral, NIGHTLY, First dose on Mon01/23/19 at 2100, Until Discontinued, Routine 2106 (Given - Provider: Louise Christopher, RN) pantoprazole (PROTONIX) tablet 20 mg 20 mg, Oral, DAILY, First dose on Mon01/24/19 at 0800, Until Discontinued 0820 (Given - Provid er: Bella Lopez RN) PARoxetine (PAXIL) tablet 40 mg 40 mg, Oral, EVERY MORNING, First dose on Mon01/24/19 at 0800, Until Discontinued, Routine 0820 (Given - Provid er: Bella Lopez RN) Continuous Medication Order 01/22/2019 01/23/2019 01/24/2019 sodium chloride 0.9% infusion (CANCELED) 1,000 mL, at 100 mL/hr, Intravenous, CONTINUOUS, Starting on Mon01/23/19 at 1100, Until Mon01/23/19 at 1703 1050 (New Bag - Provider: Yaneth Shea RN)1706 (Stopped - Provider: Bella Lopez, LINDSEY) PRN Medication Order 01/22/2019 01/23/2019 01/24/2019 acetaminophen (TYLENOL) tablet 1,000 mg 1,000 mg, Oral, EVERY 6 HOURS PRN, Starting on Mon01/23/19 at 1046, Until Mon01/24/19 at 1450, Pain, for MODERATE pain (4-6), Should be used concomitantly if other analgesics are ordered. Do not exceed 4,000 mg in 24 hours, Routine 1248 (Given - Provider: Bella Lopez RN)1848 (Given - Provider: Bella Lopez RN) 0046 (Given - Provider: Louise Christopher, RN)0648 (Given - Provider: Louise Christopher, RN) acetaminophen (TYLENOL) tablet 650 mg 650 mg, Oral, EVERY 4 HOURS PRN, Starting on Mon01/23/19 at 1222, Until Nay 01/24/19 at 1450, Pain, for MILD pain (1-3), Do not exceed 4,000 mg in 24 hours, Routine HYDROmorphone (DILAUDID) injection 0.2-0.4 mg (CANCELED) 0.2-0.4 mg, Intravenous, EVERY 5 MIN PRN, Starting on Mon01/23/19 at 0942, Until Mon01/23/19 at 1138, Pain, Give 0.2 mg every 5 minutes PRN for mild to moderate pain (1-5) Give 0.4 mg every 5 minutes PRN for moderate to severe pain (6-10). Hold for respiratory rate less than 10 per minute. Maximum dose 4 mg over one hour. If multiple pain medications are ordered, start with hydromorphone or morphine and use fentanyl for breakthrough pain., PACU Recovery, Routine 1107 (Given - Provider: Yaneth Shea RN) ibuprofen (ADVIL;MOTRIN) tablet 800 mg 800 mg, Oral, EVERY 6 HOURS PRN, Starting on Mon01/23/19 at 1046, Until Nay 01/24/19 at 1450, Pain, for MODERATE pain (4-6), Should be used concomitantly if other analgesics are ordered. Do not administer with ketorolac., Routine 1346 (Given - Provider: Bella Lopez RN)2105 (Given - Provider: Louise Christopher RN) 0732 (Given - Provider: Bella Lopez RN) ipratropium-albuterol (DUONEB) 0.5 mg-3 mg(2.5 mg base)/3 mL nebulizer solution 3 mL 3 mL, Nebulization, EVERY 4 HOURS PRN, Starting on Mon01/23/19 at 1046, Until Nay 01/24/19 at 1450, Wheezing, Routine 1925 (Given - Provider: Louise Christopher, LINDSEY) lidocaine-EPINEPHrine 1 %-1:200,000 injection (CANCELED) ONCE PRN, Starting on Mon01/23/19 at 0800, Until Nay 01/24/19 at 1450, Intra-Operative (Intra-Procedure), Routine 0800 (Given - Provider: Sanjeev Ty MD) ondansetron (ZOFRAN) injection 4 mg(Linked Group 1) 4 mg, Intravenous, EVERY 8 HOURS PRN, Starting on Mon01/23/19 at 1222, Until Nay 01/24/19 at 1450, Nausea, May repeat times one in 30 minutes if ineffective. If multiple antiemetics are ordered, use ondansetron first, Recovery (Recovery-Hospital Unit) ondansetron (ZOFRAN) tablet 4 mg(Linked Group 1) 4 mg, Oral, EVERY 8 HOURS PRN, Starting on Mon01/23/19 at 1222, Until Nay 01/24/19 at 1450, Nausea, Vomiting, If multiple antiemetics are ordered, use ondansetron first. PO Preferred. If patient unable to take PO, may give IV if ordered. May repeat times one in 45 minutes if ineffective., Recovery (Recovery-Hospital Unit), Routine Linked Groups Order Group 1: ondansetron (ZOFRAN) tablet 4 mgJump to med 4 mg, Oral, EVERY 8 HOURS PRN, Starting on Mon01/23/19 at 1222, Until Nay 01/24/19 at 1450, Nausea, Vomiting, If multiple antiemetics are ordered, use ondansetron first. PO Preferred. If patient unable to take PO, may give IV if ordered. May repeat times one in 45 minutes if ineffective., Recovery (Recovery-Hospital Unit), Routine Or ondansetron (ZOFRAN) injection 4 mgJump to med 4 mg, Intravenous, EVERY 8 HOURS PRN, Starting on Mon01/23/19 at 1222, Until Nay 01/24/19 at 1450, Nausea, May repeat times one in 30 minutes if ineffective. If multiple antiemetics are ordered, use ondansetron first, Recovery (Recovery-Hospital Unit) documented in this encounter Care Teams Family Practice Md Relationship Specialty Start Date End Date Nayana Blankenship MD [address] [place] [id number] PCP - General 03/09/10 documented as of this encounter
--- OUTSIDE RECORDS SUMMARY | 2023-12-15 06:15 | XMS_ITS | Encounter Summary ---
Author Organization [facility] [place] [address] Care Team Providers Care Talent Development Coordinator Name Role Phone Nayana Blankenship MD Primary Care Provider [phone] Encounter Details Date Type Department Care Team (Late st Contact Info) Description 06/01/2017 [place] [phone] Shavonne Juarez Social History Tobacco Use Types Packs/Day Years [...] encounter Miscellaneous Notes * Telephone Encounter - Shavonne Juarez - 06/01/2017 1:46 PM EST I noticed that patient's FNA biopsy was cancelled. I left a message for the patient to call back [facility]. Patient needs FNA biopsy and f/u 10 days after with BG documented in this encounter Plan of Treatment Not on file documented as of this encounter Visit Diagnoses Not on filedocumented in this encounter Care Teams Talent Development Coordinator Relationship Specialty Start Date End Date Nayana Blankenship MD [address] [place] [address] PCP - General 03/09/10 documented as of this encounter
--- OUTSIDE RECORDS SUMMARY | 2023-12-15 06:15 | XMS_ITS | Encounter Summary ---
Author [place] [address] Care Team Providers Care Smooth Plater Name Role Phone Nayana Blankenship MD Primary Care Provider [phone] Encounter Details Date Type Department Care Team (Latest Contact Info) Description 11/14/2018 9:45 AM EDT Laboratory Appointment Lab [address] [place] [id number] Hepatitis C virus infection without hepatic coma, unspecified chronicity ; Pre-procedure lab exam; Parotid discomfort ; Parotid mass ; Parotid nodule Social History Tobacco Use Types Packs/Day Years [...] Procedure Name Priority Date/Time Associated Diagnosis Comments PROTHROMBIN TIME Routine 11/14/2018 9:49 AM EDT Hepatitis C virus infection without hepatic coma, unspecified chronicity Pre-procedure lab exam PLATELET COUNT Routine 11/14/2018 9:49 AM EDT Hepatitis C virus infection without hepatic coma, unspecified chronicity Parotid discomfort Parotid mass Parotid nodule Pre-procedure lab exam documented in this encounter Results * Platelet count (11/14/2018 9:49 AM EDT) Platelet 337 145 - 357 x10(3)/mc L [facility] Immature Plt % 1.7 0.0 - 7.4 % [facility] Comment: Limitation of the Immature Platelet Fraction (IPF)-May be less reliable when the platelet count is less than 23m997/uL due to statistical imprecision. The IPF value provides an assessment of the Bone Marrow production status. ??It is useful in differentiating Thrombocytopenia caused by platelet destruction/consumption versus decreased production. It also helps to determine the imminent release of platelets and can be therefore a helpful parameter in Chemotherapy and Bone marrow transplant patients. ELEVATED IPF value: ?? When the bone marrow is in a state of over production such as when increased destruction and consumption are the underlying issue. ?? When the marrow is recovering post chemotherapy or bone marrow transplant. LOW to NORMAL IPF value: ?? When the bone marrow in not responding and is in a decreased state of production. References: [employer] The Clinical Value of the Immature Platelet Fraction (IPF) in Cell Recovery Document Number 10-1143 09/2010 [employer] The Role of the Immature Platelet Fraction (IPF) in the Differential Diagnosis of Thrombocytopenia, Document MKT-10-1209 V05 P0514 Blood specimen (specimen) 11/14/2018 9:49 AM EDT 11/14/2018 10:11 AM EDT Narrative Resulting Agency Comment Spec In Lab Ximena Jack MD HEMATOLOGY ORDERABLE S [facility] [place] [address] * Prothrombin Time (11/14/2018 9:49 AM EDT) Prothrombin Time 12.0 9.4 - 12.[address] [facility] International Normalization Ratio 1.[address] [facility] Comment: An INR <2.0 indicates adequate procoagulant activity for hemostasis in most patients without underlying bleeding disorders, though the INR may not adequately reflect hemostatic capacity in patients with liver disease and synthetic impairment. The recommended target INR range for therapeutic anticoagulation is 2.0 ? 3.0 for most applications, though lower and higher ranges may be appropriate depending on clinical circumstances. Blood specimen (specimen) 11/14/2018 9:49 AM EDT 11/14/2018 10:11 AM EDT Narrative Resulting Agency Comment Spec In Lab Ximena Jack MD HEMATOLOGY ORDERABLE S Performing Organization Address City/State/[facility] Co de Phone Number [facility] [place] [address] documented in this encounter Visit Diagnoses Diagnosis Hepatitis C virus infection without hepatic coma, unspecified chronicity Pre-procedure lab exam Pre-procedural laboratory examination Parotid discomfort Unspecified disease of the salivary glands Parotid mass Swelling, mass, or lump in head and neck Parotid nodule Other specified diseases of the salivary glands documented in this encounter Care Teams Smooth Plater Relationship Specialty Start Date End Date Nayana Blankenship MD [address] [place] [address] PCP - General 03/09/10 documented as of this encounter
--- OUTSIDE RECORDS SUMMARY | 2023-12-15 06:15 | XMS_ITS ---
Author Organization Unknown Address [address] [place] [phone] Phone Care Team Providers Care Cctv Technician Name Role Phone MARQUITA LAMAS Registered Nurse Unavailable JANNA Latham Registered Nurse Unavailable NOHEMY MANDEL Registered Nurse Unavailable DEBRA ROLAND Registered Nurse Unavailable YOVANY LIN Registered Nurse Unavailable ISAAK SWARTZ Attending Unavailable JESUS [facility] Unavailable CONI Castellanos Primary Unavailable UNLISTED PROVIDER - REQUESTED Xhandoff Un available Results URINALYSIS WITH REFLEX CULT IF POSITIVE* - Collect Date/Time: 04/17/2023 05:30 [facility] ID: [id number] [address] [place], [place], [address] LOINC: 26360-5 Test Value Unit Reference Range Code Code System Flag COLLECTION MODE: CLEAN CATCH 15770-9 LOINC Color YELLOW yellow 5778-6 LOINC Appearance CLEAR clear 5767-9 LOINC Glucose urine 500 negative mg/dl 97984-0 LOINC A Bilirubin NEGATIVE negative 5770-3 LOINC Ketones NEGATIVE negative mg/dl 2514-8 LOINC Spec gravity 1.010 1.003 - 1.030 5811-5 LOINC pH urine 7.5 5.0 - 7.0 2756-5 LOINC A Protein TRACE negative mg/dl 68617-1 LOINC Urobilinogen 0.2 <or= 1 EU/dl 07544-3 LOINC Nitrite. NEGATIVE negative 5802-4 LOINC Blood SMALL negative 5794-3 LOINC A Leukocytes. NEGATIVE negative MICROSCOPIC INDICATED WBCs. 0-5 0-5 / hpf 75988-3 LOINC RBCs 5-10 0-5 / hpf 26293-4 LOINC Epith cells 0-5 0-5 / hpf 74519-5 LOINC Cell types squam+renal Crystals none none Bacteria none none Mucus none none 8247-9 LOINC Casts none none /lpf 31177-5 LOINC Other 02354-8 LOINC DRUG SCN 13 PANEL (MEDTOX)* - Collect Date/Time: 04/17/2023 05:30 [facility] ID: [id number] [address], [place], [id number] LOINC: 36650-8 Test Value Unit Reference Range Code Code System Flag CANNABINOIDS POSITIVE Cutoff = 50 ng/mL 06008-7 LOINC A PHENCYCLIDINE NEGATIVE Cutoff = 25 ng/mL 40265-8 LOINC COCAINE NEGATIVE Cutoff = 150 ng/mL 60371-3 LOINC METHAMPHETAMINES NEGATIVE Cutoff = 50 0 ng/mL 98418-6 LOINC OPIATES NEGATIVE Cutoff = 100 ng/mL 98565-9 LOINC AMPHETAMINES NEGATIVE Cutoff = 500 ng/mL 53965-1 LOINC BENZODIAZEPINES NEGATIVE Cutoff = 150 ng/mL 21244-8 LOINC TRICYCLIC ANTIDEP NEGATIVE Cutoff = 3 00 ng/mL 3533-7 LOINC METHADONE NEGATIVE Cutoff = 200 ng/mL 79963-5 LOINC BARBITURATES NEGATIVE Cutoff = 200 ng/mL 69256-7 LOINC OXYCODONE NEGATIVE Cutoff = 100 ng/mL 66515-9 LOINC BUPRENORPHINE NEGATIVE Cutoff = 10 mg/mL 3414-0 LOINC CBC W/ DIFFERENTIAL* - Colle ct Date/Time: 04/15/2023 18:05 [facility] ID: [id number] [address], [place], [address] LOINC: 66004-7 Test Value Unit Reference Range Code Code System Flag WBC 6.59 th/cmm L=5.00 H=10.00 6690-2 LOINC NEUT % 66.6 % L=40.0 H=80.0 LYMPH % 21.7 % L=10.0 H=50.0 MONO % 7.7 % L=2.0 H=12.0 42693-7 LOINC EOS % 2.6 % L=0.0 H=8.0 BASO % 0.8 % L=0.0 H=3.0 IG % 0.6 % L=0.0 H=1.1 2514-8 LOINC NRBC % 0.0 % L=0.0 H=0.0 05796-8 LOINC NEUT abs count 4.4 th/cmm L=1.6 H=8.4 751-8 LOINC LYMPH abs count 1.4 th/cmm L=1.5 H=4.0 731-0 LOINC L MONO abs count 0.5 th/cmm L=0.2 H=1.0 742-7 LOINC EOS abs count 0.2 th/cmm L=0.0 H=0.5 711-2 LOINC BASO abs count 0.1 th/cmm L=0.0 H=0.2 704-7 LOINC IG abs count 0.0 th/cmm L=0.0 H=0.1 43429-7 LOINC NRBC abs count 0.0 mil/cmm L=0.0 H=0.0 20563-6 LOINC RBC 4.21 mil/cmm L=3.90 H=5.40 789-8 LOINC HEMOGLOBIN 12.3 gm/dL L=12.0 H=16.0 718-7 LOINC HEMATOCRIT 38 % L=37 H=47 4544-3 LOINC MCV 90 fL L=82 H=92 787-2 LOINC MCH 29.2 pg L=27.0 H=31.0 785-6 LOINC MCHC 32.5 % L=32.0 H=36.0 786-4 LOINC RDW-SD 44.9 fL L=39.0 H=49.0 788-0 LOINC PLATELET COUNT 236 th/cmm L=150 H=450 777-3 LOINC COMPREHENSIVE METABOLIC PANE L (CMP) - Collect Date/Time: 04/15/2023 18:05 [facility] ID: [id number] [address], [place], [address] LOINC: 87250-4 Test Value Unit Reference Range Code Code System Flag GLUCOSE 121 mg/dL L=70 H=116 2345-7 LOINC H BUN 12 mg/dL L=6 H=25 3094-0 LOINC CREATININE 0.89 mg/dL L=0.51 H=0.95 2160-0 LOINC SODIUM SERUM 140 mmol/L L=136 H=145 2951-2 LOINC POTASSIUM SERUM 2.6 mmol/L L=3.4 H=5.2 2823-3 LOINC LL CHLORIDE SERUM 102 mmol/L L=96 H=110 2075-0 LOINC CARBON DIOXIDE (CO2) 28 mmol/L L=22 H=34 2028-9 LOINC ANION GAP 10.1 mmol/L 35466-0 LOINC CALCIUM SERUM 8.6 mg/dL L=8.2 H=10.2 72025-1 LOINC BILIRUBIN TOTAL 0.3 mg/dL L=0.0 H=1.3 1975-2 LOINC ALK. PHOS. 80 U/L L=46 H=116 6768-6 LOINC SGOT (AST) 29 U/L L=15 H=37 1920-8 LOINC SGPT (ALT) 28 U/L L=12 H=78 1742-6 LOINC TOTAL PROTEIN 7.1 gm/dL L=6.0 H=8.0 2885-2 LOINC ALBUMIN 3.4 gm/dL L=3.4 H=5.0 1751-7 LOINC AGE 73 years eGFR (non-Afr.Amer.) 62 mL/min 70005-3 LOINC eGFR (Afr-[place]) 75 mL/min 38157-3 LOINC THYROID TESTING CASCADE* - C ollect Date/Time: 04/15/2023 18:05 [facility] ID: [id number] [address] [place], [place], [address] LOINC: 3016-3 Test Value Unit Reference Range Code Code System Flag TSH. 1.581 uIU/mL L=0.360 H=3.740 3014-8 LOINC ALCOHOL (ETHANOL)* - Collect Date/Time: 04/15/2023 18:05 [facility] ID: [id number] [address], [place], [address] LOINC: 72199-3 Test Value Unit Reference Range Code Code System Flag ALCOHOL (ETHANOL) 85 mg/dL 73626-9 INC MYCHAL COVID FLU RSV GENEXPE RT - Collect Date/Time: 04/15/2023 17:45 [facility] ID: [id number] [address], [place], [id number] LOINC: 27564-8 Test Value Unit Reference Range Code Code System Flag COVID NEGATIVE Normal: Negative 74777-2 LOINC INFLUENZA A DNA NEGATIVE Normal: Negative 78351-7 LOINC INFLUENZA B DNA NEGATIVE Normal: Negative 65901-8 LOINC RSV DNA NEGATIVE Normal: Negative 48467-7 LOINC Social History Type Status Start Date End Date Code Code Syst em Smoking History Former smoker 04/17/19982703 8621214 SNOMED CT Sex Female Vital Signs Vital Sign Value Unit [place] Value [place] Unit Date/Time Recent/Initial? Code Code System Body Mass Index 35.15 kg/m2 04/15/2023 16:18 Initial 37974 -5 LOINC Systolic Blood Pressure 161 mm[Hg] 04/17/2023 08:46 Most Recent 8480- 6 LOINC Diastolic Blood Pressure 91 mm[Hg] 04/17/2023 08:46 Most Recent 8462- 4 LOINC Systolic Blood Pressure 123 mm[Hg] 04/15/2023 16:18 Initial 8480- 6 LOINC Diastolic Blood Pressure 93 mm[Hg] 04/15/2023 16:18 Initial 8462- 4 LOINC Body Surface Area 1.86 m2 04/15/2023 16:18 Initial 3140- 1 LOINC Height 152.400 0 cm 60.00 in 04/15/2023 16:18 Initial 8302- 2 LOINC O2 Saturation 92 % 2023 08:46 Most Recent 91535 -5 LOINC O2 Saturation 94 % 2022 16:18 Initial 28196 -5 LOINC Inhaled Oxygen Flow Rate 2.00 L/min 04/17/2023 08:46 Most Recent 3151- 8 LOINC Inhaled Oxygen Flow Rate 2.00 L/min 04/15/2023 16:18 Initial 3151- 8 LOINC Pulse 84.0 /min 04/17/2023 15:01 Most Recent 8867- 4 LOINC Pulse 76.0 /min 04/15/2023 16:18 Initial 8867- 4 LOINC Respiration 22 /min 04/17/19 24 15:01 Most Recent 9279- 1 LOINC Respiration 22 /min 04/15/20 23 16:18 Initial 9279- 1 LOINC Temperature 37.1 [place] 98.8 F 04/15/20 23 16:18 Initial 8310- 5 LOINC Weight 81.65 kg 180.00 lbs 04/15/2023 16:18 Initial 27080 -7 [facility] Medications Medication Start Date End Date Route Frequency Dose Code Code System Medication Instructions Home Meds Multivitamin Oral Tablet 06/25/2015 Unknown ORAL DAILY 1 TABLET 8044683 RxNorm TAKE 1 TABLET ORAL DAILY Acetaminophen 500MG Oral Tablet 11/15/2020 04/15/20 23 ORAL NEEDED 500 MILLIGRAMS 643583 RxNorm TAKE 500 MILLIGRAMS ORAL NEEDED Amitriptyline 25MG Oral Tablet 11/15/2020 04/15/20 23 ORAL EVERY EVENING 25 MILLIGRAMS 125620 RxNorm TAKE 25 MILLIGRAMS ORAL EVERY EVENING Azithromycin 250MG Oral Tablet 11/15/2020 04/15/20 23 ORAL DAILY 250 MILLIGRAMS 053701 RxNorm TAKE 250 MILLIGRAMS ORAL DAILY Calcium 600 MG Oral Tablet 11/15/2020 04/15/20 23 ORAL DAILY 600 MG 224327 RxNorm TAKE 600 MG ORAL DAILY Diclofenac Sodium 1% Topical application Gel/Jelly 11/15/2020 04/15/20 23 TOPICAL APPLICATI ON NEEDED TWICE DAILY 1 APPL 425382 RxNorm 1 APPL TOPICAL APPLICATIO N NEEDED TWICE DAILY Docusate Sodium 100MG Oral Capsule, Liquid Filled 11/15/2020 04/15/20 23 ORAL TWICE A DAY 100 MILLIGRAMS 3013985 RxNorm TAKE 100 MILLIGRAMS ORAL TWICE A DAY Donepezil HCl 10MG Oral Tablet 11/15/2020 Unknown ORAL DAILY 10 MILLIGRAMS 745564 RxNorm TAKE 10 MILLIGRAMS ORAL DAILY Fexofenadine HCl 180MG Oral Tablet 11/15/2020 Unknown ORAL DAILY 180 MILLIGRAMS 049280 RxNorm TAKE 180 MILLIGRAMS ORAL DAILY Fluticasone Propionate 0.05MG/Actuati on Nasal Jewell 11/15/2020 04/15/20 23 NASAL TWICE A DAY 1 SPRAY 0922153 RxNorm SPRAY 1 SPRAY NASAL TWICE A DAY Ibuprofen 200MG Oral Tablet 11/15/2020 04/15/20 23 ORAL NEEDED TWICE DAILY 600 MILLIGRAMS 251558 RxNorm TAKE 600 MILLIGRAMS ORAL NEEDED TWICE DAILY Imitrex 100MG Oral Tablet 11/15/2020 04/15/20 23 ORAL NEEDED 100 MILLIGRAMS 686496 RxNorm TAKE 100 MILLIGRAMS ORAL NEEDED Ipratropium [place] rol Sulfate 0.5MG/3ML-3MG/ 3ML Inhalation Solution 11/15/2020 04/15/20 23 INHALATIO N NEEDED TWICE DAILY 1 UNIT 9808373 RxNorm 1 UNIT INHALATION NEEDED TWICE DAILY Melatonin 10 MG Oral Capsule 11/15/2020 04/15/20 23 ORAL BEDTIME 10 MG 804478 RxNorm TAKE 10 MG ORAL BEDTIME Mirtazapine 15MG Oral Tablet 11/15/2020 04/15/20 23 ORAL BEDTIME 15 MILLIGRAMS 929004 RxNorm TAKE 15 MILLIGRAMS ORAL BEDTIME Omeprazole 40MG Oral Capsule, Delayed Release 11/15/2020 Unknown ORAL DAILY 40 MILLIGRAMS 007663 RxNorm TAKE 40 MILLIGRAMS ORAL DAILY PARoxetine HCl 20MG Oral Tablet 11/15/2020 04/15/20 23 ORAL DAILY 20 MILLIGRAMS 0863000 RxNorm TAKE 20 MILLIGRAMS ORAL DAILY Senna 8.6MG Oral Tablet 11/15/2020 04/15/20 23 ORAL NEEDED AT BEDTIME 8.6 MILLIGRAMS 896605 RxNorm TAKE 8.6 MILLIGRAMS ORAL NEEDED AT BEDTIME Singulair 10MG Oral Tablet 11/15/2020 04/15/20 23 ORAL EVERY EVENING 10 MILLIGRAMS 477450 RxNorm TAKE 10 MILLIGRAMS ORAL EVERY EVENING Trelegy Ellipta NA Inhalation Powder 11/15/2020 04/15/20 23 INHALATIO N DAILY 1 PUFF 8458693 RxNorm 1 PUFF INHALATION DAILY Vitamin D 2000 IU Oral Tablet 11/15/2020 04/15/20 23 ORAL WEEKLY 2000 IU 363035 RxNorm TAKE 2000 IU ORAL WEEKLY amLODIPine Besylate 10MG Oral Tablet 11/15/2020 Unknown ORAL DAILY 10 MILLIGRAMS 489184 RxNorm TAKE 10 MILLIGRAMS ORAL DAILY busPIRone 10MG Oral Tablet 11/15/2020 Unknown ORAL THREE TIMES A DAY 20 MILLIGRAMS 258490 RxNorm TAKE 20 MILLIGRAMS ORAL THREE TIMES A DAY predniSONE 20MG Oral Tablet 11/15/2020 04/15/20 23 ORAL DAILY 3 TABLET 701261 RxNorm TAKE 3 TABLET ORAL DAILY LORazepam 0.5MG Oral Tablet 04/17/2023 Unknown ORAL EVERY 6 HOURS 1 TABLET 462077 RxNorm TAKE 1 TABLET ORAL EVERY 6 [...] 1726 0408 21AD 5641 023 Active FDA [id number] 07/23/2025 FLEX SHOULD ER SYSTEM [id number] Total reverse shoulder prosthesis 0103 7003 8694 4543 1725 1213 21CZ 3920 3310 36 Active FDA [id number] 03/29/2025 Aequal is(TM) Ascend (TM) Flex [id number] Total reverse shoulder prosthesis 0103 7003 8694 1054 1725 1211 2191 19AV 009 Active FDA [id number] 09 03/27/2025 FLEX SHOULD ER SYSTEM [id number] Reverse shoulder prosthesis head 0100 8468 3206 1891 1726 0325 21CZ 5121 0570 10 Active FDA [id number] 28863 07/09/2025 AEQUAL IS(TM) PerFOR M Revers ed [id number] Reverse shoulder prosthesis base plate 0100 8468 3206 1884 1726 0611 2174 89AW 015 Active FDA [id number] W015 09/25/2025 AEQUAL IS(TM) PerFOR M Revers ed [id number] Orthopaedi c bone screw, non-bioabs orbable, sterile 0100 8468 3206 2072 1726 0107 2132 33AW 004 Active FDA [id number] 04/23/2025 AEQUAL IS(TM) PerFOR M Revers ed [id number] Problems Problem Start Date Resolved Date Status Code Code System OBSTRUCTIVE CHRONIC BRONCHITIS WITH EXACERBATION active 268242428 SNOMED-CT ACUTE AND CHRONIC RESPIRATOR Y FAILURE active 13736483 SNOMED-CT COPD active 40023691 SNOMED-CT PLEURAL EFFUSION active 71531652 SNO MED-CT HEMOPTYSIS, UNSPECIFIED 11/13/2020 resolved 18793 005 SNOMED-CT SEPTICEMIA NOS 11/13/2020 resolved SNOM ED-CT OTHER AND UNSPECIFIED HYPERLIPIDEMIA 11/13/2020 resolved 52475900 SNOMED-CT LUMBAGO 11/13/2020 resolved 573693574 SNOMED-CT TRANSIENT ALTERED MENTAL STATUS 11/13/2020 resolved 860013633 SNOMED-CT CANDIDIASIS OF MOUTH 11/13/2020 resolved 89748313 SNOMED-CT CLOSED FRACTURE OF ONE RIB 11/13/2020 resolved 45 976564 SNOMED-CT PNEUMONIA 11/13/2020 resolved SNOMED-CT HYPOSMOLALITY AND/OR HYPONATREMIA 11/13/2020 resolved 574505635 SNOMED-CT Allergies and Adverse Reactions Allergy Substance Reaction Severity Start Date Concern Status Code Code System TRAZODONE Hallucinations (SNOMED-CT: 0154957) Moderate Active 66298 RxNorm LISINOPRIL Cough (SNOMED-CT: 00132021) Active 38562 RxNorm FOSAMAX Moderate Active 468934 RxNorm Plan of Treatment Pre-Op Testing 11/06/2020 Pre-Op Covid-19 Testing 03/21/2020 BONE DENSITY DEXA SPINE & HIP PRE-OP COVID-19 TESTING 01/10/2022 MM SCREEN BILAT 10/22/2021 CT CHEST W/O CONTRAST 05/31/2021 NM MPI STR/RST 07/22/2021 Encounters Encounter Diagnosis Start Date Code Code Sys tem Auditory hallucinations 04/15/2023 SNOM ED-CT Personal Care Team Section Performer Name Performer Role Active Date Inactive Da melodie
--- OUTSIDE RECORDS SUMMARY | 2023-12-15 06:15 | XMS_ITS | Encounter Summary ---
Author Organization [facility] Address [facility] [place] [address] Care Team Providers Care [employer] Professional Name Role Phone Nayana Blankenhsip MD Primary Care Provider [phone] Encounter Details Date Type Department Care Team (Late st Contact Info) Description 11/02/2018 Orders [place] [address] Anneliese Nation MD [facility] [place] [address] Pre-procedure lab exam; Parotid nodule ; Parotid mass ; Parotid discomfort ; Hepatitis C virus infection without hepatic coma, unspecified chronicity Social History Tobacco Use Types Packs/Day Years [...] on file documented as of this encounter Progress Notes * Anneliese Nation MD - 11/02/2018 4:37 PM EDT Images from the original note were not included. INTERVENTIONAL/NEURO/BODY RADIOLOGY FOCUSED H&P and PRE-PROCEDURE NOTE: PCP: Nayana Blankenship MD Referring Physician: No ref. provider found Planned Procedure: US guided left parotid FNA Procedure Indication: Enlarging left parotid mass Presenting Diagnosis/ Complaint: Kyleigh Caballero is a 68 y.o. female with multiple medical problemswith an enlarging left parotid mass. CT on 09/09/2014 showed a low density homogenous mass along theinferior left parotid. The mass has been slowing growing. An US guided FNA has been requested. Past Medical/Surgical History: Patient Active Problem List Diagnosis Code ??? COPD J44.9 ??? Hypertension (HTN) I10 ??? Esophageal reflux (GERD) K21.9 ??? HCV (hepatitis C virus) B19.20 ??? Cryptogenic organizing pneumonia ??? Chronic pain syndrome G89.4 Past Medical History: Diagnosis Date ??? Anxiety ??? Arthritis ??? COPD (chronic obstructive pulmonary disease) ??? Depression ??? GERD (gastroesophageal reflux disease) ??? Hepatitis C ??? Hypertension Past Surgical History: Procedure Laterality Date ??? CLAVICLE SURGERY broken left clavicle ??? LUNG DECORTICATION 2/2 strep milari empyema ??? NOSE SURGERY broken nose Medications: Current Outpatient Medications on File Prior to Visit Medication Sig Dispense Refill ??? donepezil (ARICEPT) 10 mg Tablet Take 10 mg by mouth nightly. ??? loratadine (CLARITIN) 10 mg Tablet Take 10 mg by mouth daily. ??? umeclidinium-vilanterol (ANORO ELLIPTA) 62.5-25 mcg/actuation Disk with Device Inhale into the lungs. ??? azithromycin (ZITHROMAX) 250 mg Tablet Take by mouth daily. Day1:take 2 tablets daily, Day 2-5:Take one tablet daily ??? ibandronate (BONIVA) 150 mg Tablet Take 150 mg by mouth every 30 days. Take in AM with full glass of water, on an empty stomach. Do not lie down for 30 min. ??? multivitamin (THERAGRAN) Tablet Take 1 tablet by mouth daily. ??? pramipexole (MIRAPEX) 0.125 mg Tablet ??? montelukast (SINGULAIR) 10 mg Tablet ??? diclofenac (VOLTAREN) 75 mg Tablet, Delayed Release (E.C.) ??? metFORMIN (GLUCOPHAGE) 1,000 mg tablet Take 1,000 mg by mouth 2 times daily (with meals). Patient is unsure of dose ??? predniSONE (DELTASONE) 20 mg tablet Take 20 mg by mouth. ??? furosemide (LASIX) 20 mg tablet Take 20 mg by mouth daily. ??? hydroCODone-acetaminophen (VICODIN) 5-500 mg per tablet Take 1 tablet by mouth every 6 hours asneeded. ??? diaZEPam (VALIUM) 5 mg tablet Take 5 mg by mouth 2 times daily. ??? amitriptyline (ELAVIL) 75 mg tablet Take 1 tablet by mouth nightly. (Patient taking differently: Take 100 mg by mouth nightly.) 90 tablet 3 ??? amlodipine (NORVASC) 10 mg tablet Take 1 tablet by mouth daily. 30 tablet 3 ??? fluticasone-salmeterol (ADVAIR DISKUS) 500-50 mcg/dose diskus inhaler Inhale 1 puff into the lungs 2 times daily. 1 Inhaler 0 ??? omeprazole (PRILOSEC) 20 mg capsule Take 1 capsule by mouth daily. 90 capsule 3 ??? PARoxetine (PAXIL) 40 mg tablet Take 1 tablet by mouth every morning. 90 tablet 3 ??? tiotropium (SPIRIVA WITH HANDIHALER) 18 mcg inhalation capsule Inhale 1 capsule into the lungs daily. 90 capsule 0 ??? ipratropium-albuterol (DUONEB) 0.5 mg-3 mg(2.5 mg base)/3 mL nebulizer solution Take 3 mLs by nebulization every 4 hours as needed. ??? ERGOCALCIFEROL, VITAMIN D2, (VITAMIN D ORAL) ??? ibuprofen (ADVIL;MOTRIN) 800 mg tablet 800 MG = 1 Tablet(s), PO, Three times daily No current facility-administered medications on file prior to visit. Allergies: Alendronate sodium; Atenolol; Codeine; Lisinopril; and Trazodone Social History and Habits: Social History Socioeconomic History ??? Marital status: [...] Tobacco Use ??? Smoking status: Former Smoker ??? Smokeless tobacco: Never Used Substance and Sexual Activity ??? Alcohol use: No Comment: A few beers a week ??? Drug use: No ??? Sexual activity: Never Lifestyle ??? Physical activity: Days per week: Not on file Minutes per session: Not on file ??? Stress: Not on file Relationships ??? Social connections: Talks on phone: Not on file Gets together: Not on file Attends buddhist service: Not on file Active member of [...] Social History Narrative ??? Not on file Significant Family History: Family History Problem Relation Age of Onset ??? Myocardial Infarction Father 62 ??? Coronary Artery Disease Father ??? Coronary Artery Disease Mother ??? Coronary Artery Disease Sister ??? Coronary Artery Disease Brother Physical Examination: pending Labs: Lab Results Component Value Date WBC 8.5 02/27/2013 ANC 22.38 (H) 02/24/2013 HCT 35.0 02/27/2013 PLATELET 283 02/27/2013 INR 1.0 11/15/2012 BUN 15 02/27/2013 CREATININE 0.75 02/27/2013 ALKPHOS 66 11/17/2012 AST 15 11/17/2012 ALBUMIN 3.7 11/17/2012 BILIDIR 0.1 11/17/2012 BILITOT 0.5 11/17/2012 ALT 25 11/17/2012 PROT 6.0 (L) 11/17/2012 Imagin09/09/2014 ASA: Pending (to be assessed in angio the day of procedure) Mallampati Class: Pending (to be assessed in angio the day of procedure) Assessment/Plan: 68 y.o. female with multiple medical problems with an enlarging left parotid mass.CT on 09/09/2014 showed a low density homogenous mass along the inferior left parotid. The mass has been slowing growing. An US guided FNA has been requested. Labs to be performed day of procedure: PLT, coags Medication to STOP: None Sedation: Local sedation Prophylactic antibiotic: None Additional medications for procedure: Lidocaine Planned access site: left parotid Position: supine Pathology present for procedure: YES Consent: Pending Anneliese Nation Asphalt Surface Heater Operator 11/02/2018 documented in this encounter Plan of Treatment Not on file documented as of this encounter Results * Prothrombin Time (11/14/2018 9:49 AM EDT) Prothrombin Time 12.0 9.4 - 12.5 sec [facility] International Normalization Ratio 1.0 [facility] Comment: An INR <2.0 indicates [...] Lab Ximena Jack MD HEMATOLOGY ORDERABLE S [facility] [place] [address] * Platelet count (11/14/2018 9:49 AM EDT) Platelet 337 145 - 357 x10(3)/mc L [facility] Immature Plt % 1.7 0.0 - 7.4 % [facility] Comment: Limitation of the Immature Platelet Fraction (IPF)-May be less reliable when the platelet count is less than 31x422/uL due to statistical imprecision. The IPF value [...] in a decreased state of production. References: [employer] The Clinical Value of the Immature Platelet Fraction (IPF) in Cell Recovery Document Number [id number] 09/2010 [employer] The Role of the Immature Platelet Fraction (IPF) in the Differential Diagnosis of Thrombocytopenia, Document [id number] V05/03/30 P008/28 Blood specimen (specimen) 11/14/2018 9:49 AM EDT 11/14/2018 10:11 AM EDT Narrative Resulting Agency Comment Spec In Lab Ximena Jack MD HEMATOLOGY ORDERABLE S [facility] [place] [address] documented in this encounter Visit Diagnoses Diagnosis Pre-procedure lab exam Pre-procedural laboratory examination Parotid nodule Other specified diseases of the salivary glands Parotid mass Swelling, mass, or lump in head and neck Parotid discomfort Unspecified disease of the salivary glands Hepatitis C virus infection without hepatic coma, unspecified chronicity documented in this encounter Care Teams [employer] Professional Relationship Specialty Start Date End Date Nayana Blankenship MD [address] [place] [address] PCP - General 03/09/10 documented as of this encounter
--- OUTSIDE RECORDS SUMMARY | 2023-12-15 06:15 | XMS_ITS | Clinical Summary ---
Author Organization [facility] Address [facility] [place] [address] Care Team Providers Care Loan Review Manager Name Role Phone Nayana Blankenship MD Primary Care Provider [phone] Allergies Active Allergy Reactions Criticality Noted Date Comments Adhesive Tape 11/27/2018 Pulls skin off Alendronate Sodium Medium CIS - severe joint pain, CIS - severe joint pain, CIS - severe joint pain, CIS - severe joint pain Atenolol CIS - DEPRESS,DIZZINESS, CIS - DEPRESS,DIZZINESS, CIS - DEPRESS,DIZZINESS, CIS - DEPRESS,DIZZINESS Codeine CIS - jittery, CIS - jittery, CIS - jittery, CIS - jittery Lisinopril CIS - COUGH, CIS - COUGH, CIS - COUGH, CIS - COUGH Red Blood Cells Other (See Comments) High 01/22/2019 Antibodies-Difficult to Crossmatch DO NOT REMOVE Please contact the Blood Bank at [phone] for questions. Trazodone CIS - NIGHTMARES, CIS - NIGHTMARES, CIS - NIGHTMARES, CIS - NIGHTMARES Medications Medication Sig Dispensed Refills Start Date End Date Status ERGOCALCIFEROL, VITAMIN D2, (VITAMIN D ORAL) 05/14/2010 Active ibuprofen (ADVIL;MOTRIN) 800 mg tablet 800 MG = 1 Tablet(s), PO, Three times daily 05/14/2010 Active ipratropium-albute rol (DUONEB) 0.5 mg-3 mg(2.5 mg base)/3 mL nebulizer solution Take 3 mLs by nebulization every 4 hours as needed. Active amitriptyline (ELAVIL) 75 mg tablet Take 1 tablet by mouth nightly. 90 tablet 3 11/20/2012 Active Additional Information Patient taking differently: 100 mgOral NIGHTLY, Reported on 05/18/2017 amlodipine (NORVASC) 10 mg tablet Take 1 tablet by mouth daily. 30 tablet 3 11/20/2012 Active PARoxetine (PAXIL) 40 mg tablet Take 1 tablet by mouth every morning. 90 tablet 3 11/20/2012 Active montelukast (SINGULAIR) 10 mg Tablet Take 10 mg by mouth nightly. 11/07/2013 Active multivitamin (THERAGRAN) Tablet Take 1 tablet by mouth daily. Active azithromycin (ZITHROMAX) 250 mg Tablet Take 250 mg by mouth daily. Day1:take 2 tablets daily, Day 2-5:Take one tablet daily Active diclofenac (VOLTAREN) 1 % Gel Apply topically as needed. Active fluticasone/umecli din/vilanter (TRELEGY ELLIPTA INHL) Inhale into the lungs daily. Active fexofenadine (DARCY ALLERGY) 180 mg Tablet Take 180 mg by mouth daily. Active omeprazole (PRILOSEC) 40 mg Capsule, Delayed Release(E.C.) Take 40 mg by mouth daily. Active busPIRone (BUSPAR) 10 mg Tablet Take 10 mg by mouth 3 times daily. 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 Obesity (BMI 30.0-34.9) 11/27/2018 Anxiety and depression 11/27/2018 On supplemental oxygen thera py--at night and prn during the day 11/27/2018 Borderline diabetes mellitus 11/27/2018 Chronic pain syndrome 05/20/2015 COPD 03/03/2014 Hypertension (HTN) 03/03/2014 Esophageal reflux (GERD) 03/03/2014 HCV (hepatitis C virus) 03/03/2014 Resolved Problems Problem Noted Date Diagnosed Date Resolved Date Cryptogenic organizing pneumonia 06/03/2014 11/27/2018 Immunizations Name Administration Dates Next Due Influenza Vaccine, Whole 12/16/2009 Family History Medical History Relation Comments Coronary Artery Disease Brother Coronary Artery Disease Father Myocardial Infarction Father Coronary Artery Disease Mother Coronary Artery Disease Sister Relation Status Comments Brother Father Mother Sister Social History Tobacco Use Types Packs/Day Years [...] on file Sexual Orientation Not on file Last Filed Vital Signs Vital Sign Reading [...] Mass Index 33.65 01/31/2019 3:46 PM EDT Plan of Treatment Health Maintenance Due Date Last Done Comments CT Colonography 1951 Colonoscopy 1951 Colorectal Cancer Screening 1950 FIT DNA 1951 FIT 1951 Sigmoidoscopy (10 year) with FIT yearly 1951 Sigmoidoscopy 1951 Tdap adult 1970 Tetanus vaccine 1970 Breast Cancer Share Decision Needed 1991 Breast Cancer screening 1991 Zoster vaccine (1 of 2) 2001 Lipid Screening 02/23/2015 02/23/2010 Bone Density Scan 01/12/2016 Pneumoccocal Vaccine: 65+ (1 of 1 - PCV) 01/12/2016 Covid-19 Vaccine (1 - 2022-2 4 season) 2022 Influenza (Flu) vaccine (1 o f 1 - Influenza standard series) 12/17/2023 12/16/2009 Diabetes Screening (HgbA1C o r Glucose) Discontinued 02/27/2013, 02/26/2013, 02/25/2013, Additional history exists Procedures Procedure Name Priority Date/Time Associated Diagnosis Comments BASIC METABOLIC PANEL Routine 02/27/2013 4:33 AM EST LIPID PANEL (REFLEX DIRECT LDL) Routine 02/23/2010 12:20 PM EST from Last 3 Months or Most Recently Relevant to Health Maintenance Results * Basic Metabolic Panel (non-fasting) (02/27/2013 4:33 AM EST) Glucose 94 60 - 199 mg/dL [facility] Comment:Diabetes: >=200 mg/d L plus symptoms Blood Urea Nitrogen 15 8 - 18 mg/dL [facility] Creatinine 0.75 0.70 - 1.20 mg/dL [facility] Comment: Please note that the pediatric reference intervals supplied above were [place] validated [place] [facility] [place] Results from pediatric patients should be interpreted in conjunction to the patient's age, height and muscle mass. Sodium 137 135 - 145 mmol/L [facility] Potassium 3.8 3.5 - 5.0 mmol/L [facility] Comment: Please note: ??Patients with WBC >100,000 may have falsely elevated Potassium levels. ??For accurate Potassium quantification in these patients send serum separator tube (gold top) for subsequent determinations. ??Contact the Clinical Chemistry Laboratory if there are any questions. Chloride 99 98 - 107 mmol/L [facility] Carbon Dioxide 27 22 - 31 mmol/L [facility] Anion Gap 11 5 - 15 mmol/L [facility] Calcium 9.3 8.5 - 10.5 mg/dL [facility] Est Glomerular Filtration Rate >60 >=60 [facility] Comment: This estimated GFR (eGFR) value was calculated using the MDRD equation which has been validated on patients between the ages of 18 and 70. The MDRD should not be used to assess kidney function in patients < 18 years of age or in patients with extremes of body mass, or in patients with acute kidney failure. This value should be multiplied by 1.2 for patients. For further information please copy and paste the following links into your internet browser. http://www.nkdep.nih.gov/lab-evaluation.shtml http://www.kidney.org/professionals/ Blood specimen (specimen) 02/27/2013 4:33 AM EST 02/27/2013 4:42 AM EST Narrative Resulting Agency Comment Spec In Lab Niharika Latif MD CHEMISTRY ORDERABLE S [facility] * (ABNORMAL) LIPID PANEL (02/23/2010 12:20 PM EST) Cholesterol, Total 138 <=199 mg/dL [facility] Comment: Recommendations of the NCEP Adult Treatment Panel for the following risk cutoff thresholds for the [place] population: Desirable: <200 mg/dL Borderline High: 200-239 mg/dL High: > or = 240 mg/dL Triglyceride 81 <=149 mg/dL [facility] Comment: Reference Range: Normal triglycerides: ??<150 mg/dL Borderline high: ??150-199 mg/dL High: ??200-499 mg/dL Very high: ??>xs=726 mg/dL LLOYD 2001; 285(19):2012-0953 HDL Cholesterol 39(L) >=40 mg/dL [facility] Comment: Reference range: ??Low HDL: ?? < 40 mg/dL ??Normal: ?40-60 mg/dL ??Desirable: > 60 mg/dL LLOYD 2001; 285(19):0544-7163 LDL Cholesterol 83 <=99 mg/dL [facility] Comment: Reference range: ?? Optimal: ?<100 mg/dL ?? Near Optimal/Above Optimal: ?? 100-129 mg/dL ?? Borderline high: ?130-159 mg/dL ?? High: ? 160-189 mg/dL ?? Very high: ?>dt=407 mg/dL LLOYD 2001: 285(19):6723-3631 Cholesterol/HDL Ratio 3.5 ratio [facility] Comment: A Cholesterol to HDL ratio below 4:1 is desirable. ??Studies suggest that increased CAD risk occurs at ratios above 5 for females and above 6 for men. ? [place] Heart Association ??(http://www.americanheart.org) ? Ryann Int Med, 1994; 121:641 ? AM J Med, 1998; 105(1A):48S Fasting? Not Indicated [facility] Blood specimen (specimen) 02/23/2010 12:20 PM EST 02/23/2010 12:58 PM EST Boaz Cameron MD CHEMISTRY ORDERABLES [facility] from Last 3 Months or Most Recently Relevant to Health Maintenance Advance Directives Documents on File Type Date Recorded Patient Salon Assistant Expl anation Advance Directives and Kristinein g Will 02/12/2014 11:26 AM 05/05/2013 * Full Code (Latest Code Status on File) Date Activated Date Inactivated Comments 01/23/2019 10:38 AM 01/24/2019 2:55 PM Question Answer Comments Does patient have capacity to make decision: Yes * Full Code Date Activated Date Inactivated Comments 11/14/2018 10:34 AM 11/15/2018 4:39 AM Question Answer Comments Does patient have capacity to make decision: Yes * Full Code Date Activated Date Inactivated Comments 02/24/2013 5:44 PM 02/27/2013 4:12 PM Question Answer Comments Order Status: Initial Order Does patient have decision m aking capacity? Yes, Order is based on Patients wishes. * Full Code Date Activated Date Inactivated Comments 11/15/2012 7:43 PM 11/20/2012 6:38 PM Question Answer Comments Order Status: Initial Order Does patient have decision m aking capacity? Yes, Order is based on Patients wishes. Care Teams Loan Review Manager Relationship Specialty Start Date End Date Nayana Blankenship MD [address] [place] [address] PCP - General 03/09/10
--- OUTSIDE RECORDS SUMMARY | 2023-12-15 06:15 | XMS_ITS | Encounter Summary ---
Author Organization [facility] Address [facility] [place] [address] Care Team Providers Care Log Buyer Name Role Phone Nayana Blankenship MD Primary Care Provider [phone] Encounter Details Date Type Department Care Team (Late st Contact Info) Description 05/24/2017 Notes [place] [address] Chalo Fuller MD [facility] [place] [address] Social History Tobacco Use Types Packs/Day Years [...] on file documented as of this encounter H&P Notes * Chalo Fuller MD - 05/24/2017 4:26 PM EST Images from the original note were not included. NEURORADIOLOGY PRE-PROCEDURE NOTE and FOCUSED H&P: Referring Physician: Rafy Ty MD PCP: Nayana Blankenship MD Planned Procedure: US guided left parotid FNA Procedure Indication: Left parotid mass Presenting Diagnosis/ Complaint: Kyleigh Caballero is a 67 y[address] Per Dr. Ty's last office note (05/18/17): Patient with multiple medical problems and severe lung issues with long standing left parotid masswho would be a poor surgical candidate in view of her medical history, would be a high anesthetic risk. Discussed with patient planning FNAB of the mass to get some idea of histology. Past Medical/Surgical History Patient Active Problem List Diagnosis Code ??? [...] SURGERY broken left clavicle ??? LUNG DECORTICATION 05/19 strep milari empyema ??? NOSE SURGERY broken nose Medications: Current Outpatient Prescriptions on File Prior to Visit Medication Sig [...] Trazodone Social History and Habits: Social History Social History ??? Marital status: Spouse name: N/A ??? Number of children: 3 ??? Years of education: N/A Occupational History ??? Not on file. Social History Main Topics ??? Smoking status: Former Smoker ??? Smokeless tobacco: Never Used ??? Alcohol use No Comment: A few beers a week ??? Drug use: No ??? Sexual activity: No Other Topics Concern ??? Not on file Social History Narrative Significant Family History: Family History Problem Relation Age of Onset ??? Myocardial Infarction Father 62 ??? Coronary Artery Disease Father ??? Coronary Artery Disease Mother ??? Coronary Artery Disease Sister ??? Coronary Artery Disease Brother Physical Exam: Pending Labs: Lab Results Component Value Date WBC 8.5 02/27/2013 ANC 22.38 (H) 02/24/2013 HCT 35.0 02/27/2013 PLATELET 283 02/27/2013 INR 1.0 11/15/2012 BUN 15 02/27/2013 CREATININE 0.75 02/27/2013 ALKPHOS 66 11/17/2012 AST 15 11/17/2012 ALBUMIN 3.7 11/17/2012 BILIDIR 0.1 11/17/2012 BILITOT 0.5 11/17/2012 ALT 25 11/17/2012 PROT 6.0 (L) 11/17/2012 Prior relevant imaging: Assessment/Plan: 67 y.o. female with left parotid mass of unknown etiology. Plan is US guided guided FNA of the mass. Biopsy/drain access site: Left parotid Patient Position: Supine Cytopathology presence needed: Yes General anesthesia required: [no] Medications to discontinue (and days): None Labs: Coags, platelets This case was discussed with Dr. Kessler. Chalo Fuller MD DAB[facility] Neuroradiology Fellow Pager [phone] documented in this encounter Plan of Treatment Not on file documented as of this encounter Visit Diagnoses Not on filedocumented in this encounter Care Teams Log Buyer Relationship Specialty Start Date End Date Nayana Blankenship MD [address] [place] [address] PCP - General 03/09/10 documented as of this encounter
--- OUTSIDE RECORDS SUMMARY | 2023-12-15 06:15 | XMS_ITS | Encounter Summary ---
Author Organization [facility] Address [facility] [place] [address] Care Team Providers Care Insurance Claims Processor Name Role Phone Nayana Blankenship MD Primary Care Provider [phone] Encounter Details Date Type Department Care Team (Late st Contact Info) Description 09/23/2014 Orders [place] [address] Rafy Ty MD [facility] [place] [address] Social History Tobacco Use Types Packs/Day Years [...] Procedure Name Priority Date/Time Associated Diagnosis Comments FILM LIBRARY STORAGE ONLY CT HEAD AND SPINE Routine 09/23/2014 1:33 PM EDT documented in this encounter Results * Film Library- Storage only CT Head And Spine (09/23/2014 1:33 PM EDT) Anatomical Region Laterality Modality Head, C-spine, T-spine, L-spine Other 09/23/2014 1:33 PM EDT Narrative 09/23/2014 1:39 PM EDT This is a Non-reportable exam Procedure Note HAM, UNSIGNED REPORT - 09/23/2014 This is a Non-reportable exam Rafy Ty MD IMG FILM LIBRARY OR DERABLES documented in this encounter Visit Diagnoses Not on filedocumented in this encounter Care Teams Insurance Claims Processor Relationship Specialty Start Date End Date Nayana Blankenship MD [address] [place] [address] PCP - General 03/09/10 documented as of this encounter
--- OUTSIDE RECORDS SUMMARY | 2023-12-15 06:15 | XMS_ITS | Referral Summary ---
Author Organization [facility] Address [address] [place] [address] Care Team Providers Care Conference Reservationist Name Role Phone Meg Carrero MD Primary Care Provider [phone] Social History Tobacco Use Types Packs/Day Years Used Date Smoking Tobacco: Never Assessed Sex and Gender Information Value Date Recorded Sex Assigned at Not on file Gender Identity Not on file Sexual Orientation Not on file Plan of Treatment Not on file Care Teams Conference Reservationist Relationship Specialty Start Date End Date Meg Carrero MD [address] [place] [id number] PCP - General 02/28/15
--- OUTSIDE RECORDS SUMMARY | 2023-12-15 06:15 | XMS_ITS | Encounter Summary ---
Author Organization [facility] Address [facility] Mary Alice meier [place] [id number] Care Team Providers Care Sewer Bricklayer Name Role Phone Nayana Newberry MD Primary Care Provider [phone] Reason for Referral * Consultation (Routine) - Closed Specialty Diagnoses / Procedures Referred By Adarsh t Referred To Contact Pain Management Diagnoses Other chronic pain Primary osteoarthritis involving multiple joints Vera White MD [facility] [place] [address] Javon Pate MD [facility] [place] [address] Referral ID Status Reason Start Date Expiration Date V isits Requested Visits Authorized [id number] Closed Consult, Test & Treat 05/14/2015 05/13/2016 1 1 Reason for Visit * Reason Comments Other Palliative Care Encounter Details Date Type Department Care Team (Latest Contact Info) Description 05/14/2015 1:45 PM EST Office [place] [address] Vera White MD [facility] [place] [address] Other chronic pain; Primary osteoarthritis involving multiple joints; Palliative care encounter Social History Tobacco Use Types Packs/Day [...] Sign Reading Time Taken Comments Blood Pressure 150/74 05/14/2015 1:42 PM EST Pulse 76 05/14/2015 1:42 PM EST Temperature 36.7 ??C (98.1 ??F) 05/14/2015 1:42 PM ES T Respiratory Rate - - Oxygen Saturation 96% 05/14/2015 1:42 PM EST Inhaled Oxygen Concentration - - Weight 86.2 kg (190 lb) 05/14/2015 1:42 PM EST Height - - Body Mass Index 34.75 06/03/2014 1:24 PM EST documented in this encounter Progress Notes * Vera White MD - 05/14/2015 4:09 PM EST Outpatient Palliative Medicine Follow-up Visit Patient: Kyleigh Caballero : 1950 Date of visit: 06/03/14 Referring provider: Dr. Srinivasan Salas Primary care provider: NAYANA NEWBERRY MD ID: Kyleigh Caballero is a 65 y.o. 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 She is accompanied by her Teo at this visit in . Clinical summary: From my prior note: She has been hospitalized for respiratory issues at least once a year for 10 years, more frequentlybetween January 2013 and December 2013, with several ICU stays and ventilation of up to 2 weeks. She has had COPD for several years, but the severity of her COPD is unclear, given intercurrent recerrent pneumonias and BILLING SPECIALIST. Extensive workup has not revealed a unifying pulmonary diagnosis. She hasrecurrent infections, with strep milleri pneumonia in 02/2011 s/p decortication, PNA in 06/2012 s/p a fall. Around August 2012 she was treated with antibiotics for sinus infections. In October she had a chest CT in [place], [place], showing emphysema and ground glass opacities. She was admitted to [facility] in November for further evaluation of SOB/hemoptysis from 11/15/12-11/20/12. She was treated for COPD exacerbation and CAP. Blood and sputum cultures were normal and viral DFA and Legionella Ag were negative. Etiologies considered for her presentation were Jass's/Granulomatosis Polyangitiitis (GPA), Microscopic Polyangiitis (MPA), Churg Laura, Goodpasture's, RPGN, Lupus, Hypersensitivity pneumonitis. However, ANGIE, cANCA, pANCA, MPO, Pr3 and Hypersensitivity panel were all negative. IgA and IgM were wnl and IgG only slightly below normal. Her hypoxia improved and she was discharged to complete 5d of her Abx and on a steroid taper (initially at 60mg qd). When seen in office as a follow up she again complained of some hemoptysis the day before (brown tinged sputum - no radha bright red blood). She also reported some dull achy chest pain that did not radiate and was reproducible on chest wall pal pation.This was coincident with a reduction in her steroid dose, which was increased again. It was thought that she likely has cryptogenic organizing pneumonia (BILLING SPECIALIST). On a follow up telephone conversation her chest tightness significantly improved together with no more gaby colored sputum on higher dose steroid. She was at again [facility] for RLL pneumonia in February 2013. On that admission she had a leukocytosis of 22k while requiring oxygen at 3L via NC. She did well during her hospital stay with resolution ofleukocytosis (8.5k at discharge) and her O2 requirement down to baseline at 2L NC. In March 2013cleo was again on outpatient course of Levaquin per her PCP. On 03/26/13 she was admitted to [facility] with LLL pneumonia around 03/30/13. She has had several readmissions to [facility] for respiratory events, thought to be pneumonia. She was started on 30 mg of Prednisone for 2 months for BILLING SPECIALIST when seen in January 2013. At that timeshe was tapered down to 25 mg for a month followed by 20 mg for a month to be followed by 15 mg starting 03/17/13. When seen in office last on 05/01/13 due to her recurrent admissions for SOB supplemented in conjunction with worsened diffusion on PFT her Prednisone dose was increased back to 30 mg q day. However, when seen on follow up on 06/20/13 she was on 20 mg which was than continued as such. She also has chronic back pain, which was worse during her most recent hospitalization at [facility]. She was started on MSContin, and spent 3 weeks in rehab following her hospitalization. She is now back home, walking a little more every day. She lives with Teo in the [facility] in [place], [place], a [address] [facility]. They come to [facility] only to see Dr. De Leon, with visits every 2-3 months. Both agree that more frequent visits would be a significant burden. 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 She has 3 children. PMH includes hypertension, anxiety/depression, OCD, PTSD, h/o auditory hallucinations, and hepatitis C. She understands that she has a serious pulmonary illness, which causes recurrent episodes of shortness of breath, fevers, cough and sputum. She isn't sure exactly what it is. She knows she has been hospitalized many times and been critically ill many times, but doesn't remember most of her hospitalizations. She believes she will get stronger and better with time and exercise. She has said she is not distressed by her recurrent hospitalizations. She relies on Teo for support during her illness and they make decisions together. Interval History: She was last seen at [facility] almost a year ago, 05/2014. She has done well overall from a pulmonary standpoint, with only one hospitalization in 2014, compared to 9 in 2013. She is feeling stronger and better in general, and is considering surgery on her R shoulder. She tells me she is planning to repeat PFTs as part of pre-operative workup, but she is hopeful that she will be able to go ahead with this. She made this appointment because of issues around pain management. She has chronic pain in her arthritic L shoulder, pain from a hiatal hernia, and new pain in her R shoulder which she attributes tooveruse, compensating for her L. She also had a recent episode of shingles, which was painful but is now resolving, and aching in other joints which is much less severe than her L shoulder. She has been using Vicodin, 2.5 tablets per day, prescribed by Dr. Newberry, who has carefully limited her opioid use. Kyleigh and Teo tell me that during the shingles outbreak she took one of Teo's oxycodone without asking him, and it was detected on UDS by Dr. Newberry. Kyleigh also says she has had some early refill requests, although says that her appointment interval was 30 days while the script was written for a 28 day supply, and maintains she didn't actually take more than prescribed. As a result of these aberrant behaviors, Dr. Newberry is no longer prescribing opioids for her. Kyleigh opened the visit by asking me to prescribe opioids for her pain. I explained that I could not prescribe opioidsfor her chronic pain, as it is outside the scope of my practice, and that I would have handled the events she described in the same way Dr. Newberry did. Kyleigh and Teo then asked me to help them explore their options and identify next steps. Her worst pain is in her L shoulder, and she says that although she has discomfort due to her shingles, hiatal hernia, and other joints it is only the shoulder that makes her want strong pain medicines. She thinks that after surgery, if she can have it, she will be able to get away from these medicines. She is currently getting cortisone injections periodically in her shoulder. She does not have a firm timeline for pre-operative evaluation and possible surgery. Other than the issues around opioids, she and Teo are very happy with Dr. Newberry's excellent care,and they don't want to lose access to her. Teo is a long-term patient of Dr. Pate's here, andwonders if he might be able to see her. We discussed 4 options: ?? Proceed JOHNSON with pre-operative pulmonary evaluation and then, if possible and considered likelyto benefit her, with surgery, and keep her primary care with Dr. Newberry. ?? Have a consultation with Dr. Pate for his expert opinion on optimal management of her pain syndrome; depending on the outcome of that, she may be able to receive most of her care close to home with his recommendations, or may follow here. We discussed that she should think of this consultation as a way to get the best advice on how to manage her pain, and that his recommendations may not include opioids. She would keep her primary care with Dr. Newberry ?? Seek multiple specialty consultations for all of her sources of pain (unweildy, expensive, and unlikely to meet her needs) ?? Try to find a new primary care doctor who would prescribe what she wants (undesirable, as she would lose her excellent relationship with Dr. Newberry and may still not be able to find someone who would resume opioid prescribing under these circumstances) After discussion, it was clear that she values her relationship with Dr. Newberry highly and [facility]. They were interested in consultation with Dr. Pate, andthis is scheduled for 05/20/15. ADVANCE DIRECTIVES: Yes, on file in [facility]. GOALS OF CARE: 05/14/2015: She would like to have less pain and remain active. 05/2104[place] wants to get better and live a long time. She continues to want no limits on her care. She is comfortable while in the hospital (or at least doesn't remember the uncomfortable parts) and has no doubt about pursuing acute care again if her health deteriorates. She is comfortable in the ICUand didn't mind the ventilator, and would seek that care again without hesitation if she were having trouble breathing. She has never considered limiting care; she says that if she were really sick again and uncomfortable she might consider it, but that's a decision she would make in the moment. ROS: Pertinent items are noted in HPI. PMH: Patient Active Problem List Diagnosis ??? Cryptogenic organizing pneumonia ??? COPD ??? Hypertension (HTN) ??? Esophageal reflux (GERD) ??? HCV (hepatitis C virus) MEDICATIONS: Current Outpatient Prescriptions on File Prior to Visit Medication Sig Dispense Refill ??? multivitamin (THERAGRAN) Tablet Take 1 tablet by mouth daily. ??? diclofenac (VOLTAREN) 75 mg Tablet, Delayed Release (E.C.) ??? metFORMIN (GLUCOPHAGE) 1,000 mg tablet Take 1,000 mg by mouth 2 times daily (with meals). Patient is unsure of dose ??? predniSONE (DELTASONE) 20 mg tablet Take 20 mg by mouth. ??? diaZEPam (VALIUM) 5 mg tablet Take 5 mg by mouth 2 times daily. ??? amitriptyline (ELAVIL) 75 mg tablet Take 1 tablet by mouth nightly. 90 tablet 3 ??? amlodipine (NORVASC) 10 [...] mouth every morning. 90 tablet 3 ??? ipratropium-albuterol (DUONEB) 0.5 mg-3 mg(2.5 mg base)/3 mL nebulizer solution Take 3 mLs by nebulization every 4 hours as needed. ??? ERGOCALCIFEROL, VITAMIN D2, (VITAMIN D ORAL) ??? ibandronate (BONIVA) 150 mg Tablet Take 150 mg by mouth every 30 days. Take in AM with full glass of water, on an empty stomach. Do not lie down for 30 min. ??? pramipexole (MIRAPEX) 0.125 mg Tablet ??? montelukast (SINGULAIR) 10 mg Tablet ??? furosemide (LASIX) 20 mg tablet Take 20 mg by mouth daily. ??? hydroCODone-acetaminophen (VICODIN) 5-500 mg per tablet Take 1 tablet by mouth every 6 hours asneeded. ??? tiotropium (SPIRIVA WITH HANDIHALER) 18 mcg inhalation capsule Inhale 1 capsule into the lungs daily. 90 capsule 0 ??? ibuprofen (ADVIL;MOTRIN) 800 mg tablet 800 MG = 1 Tablet(s), PO, Three times daily No current facility-administered medications on file prior to visit. ALLERGIES: Allergies Allergen Reactions ??? Alendronate Sodium CIS [...] NIGHTMARES, CIS - NIGHTMARES, CIS - NIGHTMARES SOCIAL HISTORY: History Social History ??? Marital Status: Spouse Name: N/A Number of Children: 3 ??? Years of Education: N/A Social History Main Topics ??? Smoking status: Former Smoker ??? Smokeless tobacco: Never Used ??? Alcohol Use: No Comment: A few beers a week ??? Drug Use: No ??? Sexual Activity: No Other Topics Concern ??? None Social History Narrative PHYSICAL EXAMINATION Vitals Office Visit from 05/14/2015 in Palliative Medicine Weight - Scale 86.183 kg (190 lb) Temp 36.7 ??C (98.1 ??F) Temp Source Oral Heart Rate 76 BP 150/74 mmHg SpO2 96 % She is well nourished, well hydrated, and appears comfortable seated in a straight chair. Skin color and turgor are good. She speaks in full sentences without pausing to catch her breath. No cough noted. No pursed lip breathing. She rubs her shoulders often. DIAGNOSTIC STUDIES: LABS: No results found for this or any previous visit (from the past 72 hour(s)). IMAGIN05/22/14 [facility] Xray L shoulder - severe DJD with bony remodeling at glenohumeral joint ASSESSMENT: Kyleigh Caballero is a 65 y.o. female from [place], [place] with BILLING SPECIALIST, COPD, severe DJD, chronic pain, and anxiety. Her goals are to live as long and fully as possible, and she is willing to tolerate invasive treatments in order to extend her life. Her symptom burden includes pain in her shoulders, hips and knees, attributed to severe DJD. She isdoing better with her breathing, and has remained out of the hospital for most of the past year, a significant improvement over the prior year. She has been contemplating shoulder surgery for over a year. She has been using Vicodin for pain and has a long history of wishing for stronger opioids, reflected in my prior notes. She has recently had aberrant behaviors related to her opioids, includingstealing her 's opioid. Her purpose in coming to see me today was to see if I would prescribe for her, but when I declined she was open to considering other options. She would like to preserveher otherwise excellent relationship with Dr. Newberry, who she trusts. She says she is willing to consider all options to feel better, but given her long time frame for decision-making around surgery and the consistency of her requests for escalation of her opioids, it is possible that she will not be entirely open to non-opioid management. I would be very concerned about her ability to manage chronic opioids for her pain. PLAN: Follow up with pulmonary and orthopedics re: shoulder and possible surgery Careful pre-operative evaluation and supported decision- making based on goals and risk analysis before proceeding. Referred to Dr. Pate for consultation re: optimal management of her chronic pain Follow-Up: No follow up scheduled, but we will be happy to see Kyleigh again should a palliative care need arise. Thank you for including the palliative care team in your patient's care. We will continue to followthe patient and family with you. I reviewed all pertinent portions of the medical record including notes and results of studies. 40 minutes of this 45 minute visit were spent face to face with the patient in counseling regardingmedical decision making, symptom management, and coordination of care. Vera White MD documented in this encounter Plan of Treatment Scheduled Referrals Name Type Priority Associated Diagnoses Orde r Schedule Referral to Pain Clinic Outpatient Referral Routine Other chronic pain Primary osteoarthritis involving multiple joints Ordered: 05/14/2015 documented as of this encounter Visit Diagnoses Diagnosis Other chronic pain Primary osteoarthritis involving multiple joints Palliative care encounter Encounter for palliative care documented in this encounter Care Teams Sewer Bricklayer Relationship Specialty Start Date End Date Nayana Newberry MD [address] [place] [address] PCP - General 03/09/10 documented as of this encounter
--- OUTSIDE RECORDS SUMMARY | 2023-12-15 06:15 | XMS_ITS | Encounter Summary ---
Author Organization [facility] Address [facility] [place] [address] Care Team Providers Care Stack Attendant Name Role Phone Nayana Blankenship MD Primary Care Provider [phone] Encounter Details Date Type Department Care Team (Late st Contact Info) Description 08/05/2014 Orders [place] [address] Jose Lombardi MD [facility] [place] [address] Pain in left shoulder Social History Tobacco Use Types Packs/Day Years [...] as of this encounter Visit Diagnoses Diagnosis Pain in left shoulder Pain in joint, shoulder region documented in this encounter Care Teams Stack Attendant Relationship Specialty Start Date End Date Nayana Blankenship MD [address] [place] [address] PCP - General 03/09/10 documented as of this encounter
--- OUTSIDE RECORDS SUMMARY | 2023-12-15 06:15 | XMS_ITS | Encounter Summary ---
Author Organization [facility] [place] [address] Care Team Providers Care Project Drilling Engineer Name Role Phone Nayana Blankenship MD Primary Care Provider [phone] Encounter Details Date Type Department Care Team (Late st Contact Info) Description 08/15/2017 [place] [phone] Shavonne Juarez Social History Tobacco Use Types [...] * Telephone Encounter - Shavonne Juarez - 08/15/2017 11:16 AM EDT Called patient to reschedule follow-up appointment with Dr. Ty. I informed the patient that the follow-up needed to be after her FNA biopsy. The patient has twice canceled the FNA booked in IR.I offered to help the patient rebook the FNA, but the patient declined rescheduling and stated thatshe would follow-up with her PCP. Patient understands that she can call the clinic if she decides to reschedule the FNA or with any questions or concerns. documented in this encounter Plan of Treatment Not on file documented as of this encounter Visit Diagnoses Not on filedocumented in this encounter Care Teams Project Drilling Engineer Relationship Specialty Start Date End Date Nayana Blankenship MD [address] [place] [address] PCP - General 03/09/10 documented as of this encounter
--- OUTSIDE RECORDS SUMMARY | 2023-12-15 06:15 | XMS_ITS | Encounter Summary ---
Author Organization [facility] Address [address] [place] [address] Care Team Providers Care Straightener Hand Name Role Phone Unavailable Primary Care Provider Unavailabl e Encounter Details Date Type Department Care Team (Late st Contact Info) Description 12/31/2012 Results Only [facility] - [facility] ([facility]) [address] [place] [address] Nayana Newberry MD [address] [place] [phone] Social History Tobacco Use Types Packs/Day Years Used Date Smoking Tobacco: Never Assessed Sex and Gender Information Value Date Recorded Sex Assigned at Not on file Gender Identity Not on file Sexual Orientation Not on file documented as of this encounter Plan of Treatment Not on file documented as of this encounter Procedures Procedure Name Priority Date/Time Associated Diagnosis Comments PAP TEST- RESULT ONLY Routine 12/31/2012 0:00 EDT documented in this encounter Results * PAP TEST- RESULT ONLY (12/31/2012 0:00 EDT) Pathology Report: CYTOPATHOLOGY REPORT Reports generated via electronic interface contain original data; however they are lacking the format of the original report. Caution should be taken when reading/interpreti ng unformatted reports. Name: ? ISRA CABALLERO ? Accession #: ? [id number] : ? 1950 (Age: 62) ??F ?Collect Date: ? 12/31/2012 Location: ? [facility] ? Receive Date: ? 01/02/2013 Provider: ?NAYANA NEWBERRY MD Copy to: ? Specimen/Source: ?Pap Test, Cervix/Endocervix, ThinPrep Imaging System with manual evaluation Last Menstrual Period: ? years ago ? SPECIMEN ADEQUACY ? Satisfactory for Evaluation - transformation zone component present - scant squamous epithelial component GENERAL CATEGORIZATION ? Negative for Intraepithelial Lesion or Malignancy ? Document reviewed and electronically signed by: ? Vera Vu, CT(ASCP)(IAC) ? Report Date: ??01/08/2013 09:36 End of Report [facility] 12/31/2012 01/02/2013 Nayana Newberry MD PATHOLOGY ORDERABLES [facility] [address] [place] [address] documented in this encounter Visit Diagnoses Not on filedocumented in this encounter
--- OUTSIDE RECORDS SUMMARY | 2023-12-15 06:15 | XMS_ITS | Encounter Summary ---
[place] [address] Care Team Providers Care Gang Mower Operator Name Role Phone Nayana Blankenship MD Primary Care Provider [phone] Reason for Visit * Reason Onset Date Comments Referral 07/10/2014 Encounter Details Date Type Department Care Team (Late st Contact Info) Description 07/10/2014 Telephone [place] [id number] Rosalina Reed Referral Social History Tobacco Use Types Packs/Day Years [...] encounter Miscellaneous Notes * Telephone Encounter - Ryann Duran - 08/05/2014 3:34 PM EDT SPOKE WITH PATIEN AND SCHEDULED. * Telephone Encounter - Ruthy Paz - 07/16/2014 10:53 AM EDT CD with imaging received from [facility] and brought to image library for uploading. * Telephone Encounter - Rosalina Reed - 07/10/2014 11:09 AM EDT Ask the patient to verify the following: Full Name: Kyleigh Caballero : 1950 Phone number: [phone] (home) Mailing [address]: [address] [place] [id number] Age: 64 y.o. Appointment date: TBD Appointment is with: TBD Reason #1 Injury/Complaint: L SHOULDER PAIN Date of injury/complaint: 2013 Is this a new injury? No Is this a 2nd opinion? Yes HIGH RISK PER HER PARTNER Appointment type: 18-100 Adult - Not sports related Is this Workers Comp? No How long have you had these symptoms? 1 years Records Retrieval Most recent physical exam: Yes - When? Where? Who? Notes: 2014 [facility] [place] X-rays: Yes - When? Where? Notes: 04/2014 [place], [place] PH: [phone] (Option 5) FAX: [phone] CD ONLY MRI: No CT Scan: Yes - When? Where? Notes: 2014 [place], [place] PH: [phone] FAX: [phone] CD ONLY IN [place] Physical therapy: No Injection: Yes - When? Where? Who? Notes: 05/2014 [place], [place] PH: [phone] (Option 5) FAX: [phone] CD ONLY UNKNOWN Other diagnostic studies: No Other therapies: No Other specialist(s): No If 2nd (+) opinion get info on previous: Yes - What? When? Where? Who? Notes: 05/2014 [place], [place] PH: [phone] (Option 5) FAX: [phone] CD ONLY DANAE ORDOÑEZ Have you had any surgeries for this issue? No Did surgery include placement of implant/hardware or fixation of any kind? No Do you use any type of orthotics? No Additional injuries: Advanced Directive Do you have an Advanced Directive on file: Yes Advance Directive forestry pilot: N/A [facility] Do you have a [facility] account? IN PROCESS documented in this encounter Plan of Treatment Not on file documented as of this encounter Visit Diagnoses Not on filedocumented in this encounter Care Teams Gang Mower Operator Relationship Specialty Start Date End Date Nayana Blankenship MD [address] [place] [address] PCP - General 03/09/10 documented as of this encounter
--- OUTSIDE RECORDS SUMMARY | 2023-12-15 06:15 | XMS_ITS | Encounter Summary ---
Author Organization [facility] [place] [address] Care Team Providers Care Spar Machine Operator Name Role Phone Nayana Blankenship MD Primary Care Provider [phone] Reason for Visit * Reason Onset Date Comments Appointment 10/09/2018 Encounter Details Date Type Department Care Team (Late st Contact Info) Description 10/09/2018 Telephone [place] [phone] Mai Alvares Appointment Social History Tobacco Use Types Packs/Day Years [...] encounter Miscellaneous Notes * Telephone Encounter - Mai Alvares - 10/09/2018 1:23 PM EDT Caller and relationship to patient (if other than patient): Teo Best time to reach caller: any Message or Reason for Call: Teo called to see if he could schedule a biopsy for his (?). He said that Dr. Monte from [facility] was supposed to be sending down a referral last night. ( I am unable to find it so hopefully it is with you.) Please call them back to schedule at [phone]. Best days for them are Monday and Appt Needed and Reason: yes, biopsy Provider: Dr. Ty documented in this encounter Plan of Treatment Not on file documented as of this encounter Visit Diagnoses Not on filedocumented in this encounter Care Teams Spar Machine Operator Relationship Specialty Start Date End Date Nayana Blankenship MD [address] [place] [address] PCP - General 03/09/10 documented as of this encounter
--- OUTSIDE RECORDS SUMMARY | 2023-12-15 06:15 | XMS_ITS | Encounter Summary ---
Author Organization [facility], [facility] Address [facility] [place] [address] Care Team Providers Care Process Control Engineer Name Role Phone Nayana Blankenship MD Primary Care Provider [phone] Reason for Visit * Reason Comments Mass left neck mass x 5 y ears. Patient states that is has become a lot bigger as of late. Patient states that it does cause her discomfort at times. denies difficulty swallowing. * Consultation (Routine) - Closed Specialty Diagnoses / Procedures Referred By Adarsh boo Referred To Contact Otolaryngology Diagnoses left neck mass Judah Mendoza MD [address] [place] [address] Rafy Ty MD [facility] [place] [address] Referral ID Status Reason Start Date Expiration Date Visits Re quested Visits Authorized [id number] Closed 04/03/2017 04/03/2018 1 1 Encounter Details Date Type Department Care Team (Late st Contact Info) Description 05/18/2017 11:20 AM EST Office Visit [place] [address] Rafy Ty MD [facility] [place] [address] Parotid mass Social History Tobacco Use Types [...] - Inhaled Oxygen Concentration - - Weight 82.4 kg (181 lb 9.6 oz) 05/18/2017 11:25 AM EST Height 157.5 cm (5' 2) 05/18/2017 11:25 AM EST Body Mass Index 33.22 05/18/2017 11:25 AM EST documented in this encounter Progress Notes * Rafy Ty MD - 05/18/2017 11:20 AM EST Subjective: Patient ID: Kyleigh Caballero is a 67 y.o. female. 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 This woman has multiple medical problems related to consequences of her COPD from smoking and frequent episodes of pneumonia for which she required lung surgery in the past. SHe has had multiple admissions in this regards. She has been hospitalized for respiratory issues at least once a year for 10years, more frequently between January 2013 and December 2013, with several ICU stays and ventilation of up to 2 weeks at a time. She also has been admitted at [facility] for similar reasons. She became aware of an otherwise asymptomatic left upper neck mass 5 years ago which she thinks hasgrown to some degree in the last 2 years with minor discomfort. HAs had episodic pain. No constitutional symptoms. No other H&N mass. No facial nerve complaints. No skin involvement. She is on chronic O2 with ambulation, also on O2 at night. SHe has had lower extremity pain when katty incline. Does have lower extremity pain with going up stairs. Inclines are also difficult from arespiratory standpoint. Last PFT on record done in 2014 at which point she had moderately severe obstructive lung disease. Past Medical History: Diagnosis Date ??? Anxiety ??? Arthritis ??? COPD (chronic obstructive pulmonary disease) ??? Depression ??? GERD (gastroesophageal reflux disease) ??? Hepatitis C ??? Hypertension Past Surgical History: Procedure Laterality Date ??? CLAVICLE SURGERY broken left clavicle ??? LUNG DECORTICATION 2/2 strep milari empyema ??? NOSE SURGERY broken nose Current Outpatient Prescriptions: ??? donepezil (ARICEPT) 10 mg Tablet, Take 10 mg by mouth nightly., Disp: , Rfl: ??? loratadine (CLARITIN) 10 mg Tablet, Take 10 mg by mouth daily., Disp: , Rfl: ??? umeclidinium-vilanterol (ANORO ELLIPTA) 62.5-25 mcg/actuation Disk with Device, Inhale into thelungs., Disp: , Rfl: ??? azithromycin (ZITHROMAX) 250 mg Tablet, Take by mouth daily. Day1:take 2 tablets daily, Day 2-5:Take one tablet daily, Disp: , Rfl: ??? ibandronate (BONIVA) 150 mg Tablet, Take 150 mg by mouth every 30 days. Take in AM with full glass of water, on an empty stomach. Do not lie down for 30 min., Disp: , Rfl: ??? multivitamin (THERAGRAN) Tablet, Take 1 tablet by mouth daily., Disp: , Rfl: ??? pramipexole (MIRAPEX) 0.125 mg Tablet, , Disp: , Rfl: ??? montelukast (SINGULAIR) 10 mg Tablet, , Disp: , Rfl: ??? diclofenac (VOLTAREN) 75 mg Tablet, Delayed Release (E.C.), , Disp: , Rfl: ??? metFORMIN (GLUCOPHAGE) 1,000 mg tablet, Take 1,000 mg by mouth 2 times daily (with meals). Patient is unsure of dose, Disp: , Rfl: ??? furosemide (LASIX) 20 mg tablet, Take 20 mg by mouth daily., Disp: , Rfl: ??? diaZEPam (VALIUM) 5 mg tablet, Take 5 mg by mouth 2 times daily., Disp: , Rfl: ??? amitriptyline (ELAVIL) 75 mg tablet, Take 1 tablet by mouth nightly. (Patient taking differently: Take 100 mg by mouth nightly.), Disp: 90 tablet, Rfl: 3 ??? amlodipine (NORVASC) 10 mg tablet, Take 1 tablet by mouth daily., Disp: 30 tablet, Rfl: 3 ??? fluticasone-salmeterol (ADVAIR DISKUS) 500-50 mcg/dose diskus inhaler, Inhale 1 puff into the lungs 2 times daily., Disp: 1 Inhaler, Rfl: 0 ??? omeprazole (PRILOSEC) 20 mg capsule, Take 1 capsule by mouth daily., Disp: 90 capsule, Rfl: 3 ??? PARoxetine (PAXIL) 40 mg tablet, Take 1 tablet by mouth every morning., Disp: 90 tablet, Rfl: 3 ??? tiotropium (SPIRIVA WITH HANDIHALER) 18 mcg inhalation capsule, Inhale 1 capsule into the lungsdaily., Disp: 90 capsule, Rfl: 0 ??? ipratropium-albuterol (DUONEB) 0.5 mg-3 mg(2.5 mg base)/3 mL nebulizer solution, Take 3 mLs by nebulization every 4 hours as needed., Disp: , Rfl: ??? ERGOCALCIFEROL, VITAMIN D2, (VITAMIN D ORAL), , Disp: , Rfl: ??? ibuprofen (ADVIL;MOTRIN) 800 mg tablet, 800 MG = 1 Tablet(s), PO, Three times daily, Disp: , Rfl: ??? predniSONE (DELTASONE) 20 mg tablet, Take 20 mg by mouth., Disp: , Rfl: ??? hydroCODone-acetaminophen (VICODIN) 5-500 mg per tablet, Take 1 tablet by mouth every 6 hours as needed., Disp: , Rfl: Allergies Allergen Reactions ??? Alendronate Sodium CIS [...] NIGHTMARES, CIS - NIGHTMARES, CIS - NIGHTMARES Patient Active Problem List Diagnosis Code ??? COPD J44.9 ??? Hypertension (HTN) I10 ??? Esophageal reflux (GERD) K21.9 ??? HCV (hepatitis C virus) B19.20 ??? Cryptogenic organizing pneumonia ??? Chronic pain syndrome G89.4 Family History Problem Relation Age of Onset ??? Myocardial Infarction Father 62 ??? Coronary Artery Disease Father ??? Coronary Artery Disease Mother ??? Coronary Artery Disease Sister ??? Coronary Artery Disease Brother There is no pertinent family history of otolaryngologic problems Review of Systems: A complete review of constitutional, eyes, cardiovascular, respiratory, GI, , musculo-skeletal, skin, endocrine, psychiatric, hematologic, lymphatic and immunologic systems is completed and is as noted in the HPI. All other systems are otherwise negative. Social History Social History ??? Marital status: [...] ??? Not on file Social History Narrative Disabled. Review of Systems Objective: Physical Exam Constitutional: She is oriented to person, place, and time. She appears well- developed and well-nourished. No distress (chronically ill F, in NAD, no stridor). HENT: Head: Normocephalic. Right Ear: Tympanic membrane, external ear and ear canal normal. No middle ear effusion. Left Ear: Tympanic membrane, external ear and ear canal normal. No middle ear effusion. Nose: No mucosal edema or nasal deformity. Right sinus exhibits no maxillary sinus tenderness and no frontal sinus tenderness. Left sinus exhibits no maxillary sinus tenderness and no frontal sinus tenderness. Mouth/Throat: Uvula is midline, oropharynx is clear and moist and mucous membranes are normal. She has dentures. No oral lesions. No trismus in the jaw. No oropharyngeal exudate. Eyes: Conjunctivae are normal. Pupils are equal, round, and reactive to light. No scleral icterus. Neck: Trachea normal, normal range of motion and full passive range of motion without pain. Neck supple. No tracheal deviation present. No thyromegaly present. Pulmonary/Chest: Effort normal. No stridor. No respiratory distress. Lymphadenopathy: Head (right side): No submental adenopathy present. She has cervical adenopathy (soft/rubbery 3 x 3 cm mass in the lower left parotid gland. ). Right cervical: No superficial cervical and no deep cervical adenopathy present. Left cervical: No superficial cervical and no deep cervical adenopathy present. Neurological: She is alert and oriented to person, place, and time. She has normal reflexes. No cranial nerve deficit. Skin: Skin is warm. She is not diaphoretic. No erythema. Psychiatric: She has a normal mood and affect. Her behavior is normal. Judgment and thought contentnormal. Nursing note and vitals reviewed. CTscan head 2015: partially imaged left lower parotid gland, hypodense, about 3 cm in size Assessment and Plan: Patient with multiple medical problems and severe lung issues with long standing left parotid mass who would be a poor surgical candidate in view of her medical history, would be a high anesthetic risk. Discussed with patient planning FNAB of the mass to get some idea of histology. She will need inaddition, other preoperative workup if she is going to consider surgery. She will need an update onher PFTs. I would be concerned that following the surgery which would take about 2-1/2-3 hours thatin view of her poor lung function she has to remain intubated. She has chronic pain for which she has a prior history of narcotic use. Was recently seen by pain medicine who felt that she would be a bad candidate to be put on chronic opiates. In coordination with her FNA, I will also get an anesthesia consult. Follow-up visit will be scheduled about 10-14 days post procedure so that we have the histology back to discuss the findings. documented in this encounter Plan of Treatment Not on file documented as of this encounter Visit Diagnoses Diagnosis Parotid mass Swelling, mass, or lump in head and neck documented in this encounter Care Teams Process Control Engineer Relationship Specialty Start Date End Date Nayana Blankenship MD [address] [place] [address] PCP - General 03/09/10 documented as of this encounter
--- OUTSIDE RECORDS SUMMARY | 2023-12-15 06:15 | XMS_ITS | Encounter Summary ---
Author Organization [facility] [place] [address] Care Team Providers Care Overlock Operator Name Role Phone Nayana Blankenship MD Primary Care Provider [phone] Encounter Details Date Type Department Care Team (Late st Contact Info) Description 11/27/2018 1:40 PM EDT Laboratory Appointment Lab [address] [place] [id number] Parotid mass Social History Tobacco Use Types [...] Procedure Name Priority Date/Time Associated Diagnosis Comments CREATININE Routine 11/27/2018 1:30 PM EDT Parotid mass documented in this encounter Results * Creatinine (11/27/2018 1:30 PM EDT) Creatinine 0.86 0.70 - 1.20 mg/dL [facility] Est Glomerular Filtration Rate 70 >=60 mL/min/1.7 3 m?? [facility] Comment: The eGFR was calculated using the CKD-EPI equation. As with all creatinine based estimates of kidney function, eGFR values calculated with the CKD-EPI equation are not accurate in patients with acute kidney failure, extremes of body mass or the acutely ill. [email or web address]/[email or web address] CITYnkf eGFR 81 >=60 mL/min/1.7 3 m?? [facility] Comment: The eGFR was calculated using the CKD-EPI equation. As with all creatinine based estimates of kidney function, eGFR values calculated with the CKD-EPI equation are not accurate in patients with acute kidney failure, extremes of body mass or the acutely ill. http://[employer]LifeConnect/[facility] Blood specimen (specimen) 11/27/2018 1:30 PM EDT 11/27/2018 1:43 PM EDT Narrative Resulting Agency Comment Spec In Lab Rafy Ty MD CHEMISTRY ORDERABLE S [facility] [place] [address] documented in this encounter Visit Diagnoses Diagnosis Parotid mass Swelling, mass, or lump in head and neck documented in this encounter Care Teams Overlock Operator Relationship Specialty Start Date End Date Nayana Blankenship MD [address] [place] [address] PCP - General 03/09/10 documented as of this encounter
--- OUTSIDE RECORDS SUMMARY | 2023-12-15 06:15 | XMS_ITS | Encounter Summary ---
[place] [address] Care Team Providers Care Rn Procedures Name Role Phone Nayana Blankenship MD Primary Care Provider [phone] Encounter Details Date Type Department Care Team (Late st Contact Info) Description 01/01/2019 Telephone [place] [phone] Alisson Archibald Social History Tobacco Use Types Packs/Day Years [...] encounter Miscellaneous Notes * Telephone Encounter - Alisson Archibald - 01/01/2019 2:18 PM EDT [place], Patient is scheduled to have surgery on 01/23/2019 and the packet has been mailed to the verified address on file. Follow up appointment is as follows: no follow up indicated Thank you!! documented in this encounter Plan of Treatment Not on file documented as of this encounter Visit Diagnoses Not on filedocumented in this encounter Care Teams Rn Procedures Relationship Specialty Start Date End Date Nayana Blankenship MD [address] [place] [address] PCP - General 03/09/10 documented as of this encounter
--- OUTSIDE RECORDS SUMMARY | 2023-12-15 06:15 | XMS_ITS | Encounter Summary ---
Author Organization [facility] Address [facility] [place] [address] Care Team Providers Care Manager Front Name Role Phone Nayana Blankenship MD Primary Care Provider [phone] Reason for Visit * Auth/Cert Specialty Diagnoses [...] Expiration Date Visits Re quested Visits Authorized [id number] 1 1 Encounter Details Date Type Department Care Team (Late st Contact Info) Description 01/23/2019 7:30 AM EDT - 01/23/2019 11:28 AM EDT Surgery [place] [address] Sanjeev Ty MD [facility] [place] [address] EXC.PAROTID TUMOR OR GLAND, LATERAL LOBE, W DISSECTION & PRESERVATION FACIAL NERVE (WRVU 17.16) Social History Tobacco Use Types Packs/Day Years [...] Sign Reading Time Taken Comments Blood Pressure 137/65 01/23/2019 11:15 AM EDT Pulse 81 01/23/2019 11:15 AM EDT Temperature 36.7 ??C (98.1 ??F) 01/23/2019 10:32 AM E DT Respiratory Rate 16 01/23/2019 11:15 AM EDT Oxygen Saturation 91% 01/23/2019 11:15 AM EDT Inhaled Oxygen Concentration - - [...] optimized but has been recommendedto see the district court administrator prior to having surgery. Reason for Admission: [...] REMOVE Please contact the Blood Bank at [phone] for questions. ??? Alendronate Sodium CIS - [...] get Peridex on the $4 list at [facility]. You should call your doctor if you develop: -Increasing pain and redness -Increasing drainage from the wound -Fever > 38.5Celsius or 101 Fahrenheit -Bleeding Contact: -You can reach the ENT clinic at [phone] for appointment questions. For Dr. Ty or Dr. Easton patients-The ENT triage nurse is available at [phone] For all other attendings-The ENT triage nurse is available at [phone] -For urgent issues during evenings and weekends the ENT resident construction representative can be reached through [facility] at [phone] Follow Up: You will need to follow [...] 4:00 PM Sanjeev Ty MD [facility]ol[facility]ology at [facility] Arrive at: [facility] [phone] General Instructions None __ Primary Care Doctor: Nayana Blankenship MD [phone] Signed: Isra Hawley MD 01/24/2019 documented in [...] get Peridex on the $4 list at [facility]. You should call your doctor if you develop: -Increasing pain and redness -Increasing drainage from the wound -Fever > 38.5Celsius or 101 Fahrenheit -Bleeding Contact: -You can reach the ENT clinic at [phone] for appointment questions. For Dr. Ty or Dr. Easton patients-The ENT triage nurse is available at [phone] For all other attendings-The ENT triage nurse is available at [phone] -For urgent issues during evenings and weekends the ENT resident construction representative can be reached through [facility] [employer] at [phone] Follow Up: You will need to follow [...] 4:00 PM Sanjeev Ty MD [facility]ol[facility]ology at [facility] Arrive at: [facility] [phone] documented in this encounter Medications at Time [...] inhaler (which is not ordered in the [facility]) d/t asthma symptoms. Patient reports that her [...] Please see Amion and contact on-call ENT technology internship for any issues ENT staff; I saw [...] Ty MD - 01/23/2019 7:09 PM EDT [facility] Operative Note Patient Name: Kyleigh Caballero : [id number] MR#: [id number] Case Date: 01/23/2019 Surgeon: Surgeon(s) and Role: * Sanjeev Ty MD - Primary * Pete Morales PA - Physician Shredder Tender Peat Preoperative diagnosis: Parotid Mass Postoperative diagnosis: Parotid [...] for recovery. Since this case requires an retail event assistant, and that no resident was available, a physician retail event assistant was present for the case. Infection Bundle used? No Attestation: Case Date: 01/23/2019 I performed this procedure without the involvement of a resident. SANJEEV TY MD 01/23/2019 * Brief Op Note - Sanjeev Ty MD - 01/23/2019 10:06 AM EDT Brief Operative Note Patient Name: Kyleigh Caballero : [id number] MR#: [id number] Case Date: 01/23/2019 Surgeon: Surgeon(s) and Role: * Sanjeev Ty MD - Primary * Pete Morales PA - Physician Shredder Tender Peat Preoperative diagnosis: LEFT Parotid Mass Postoperative diagnosis: [...] Test, Any/All Per. Nerves, Trunk Or Head ([id number]) 01/23/2019 7:31 AM EDT Parotid mass Exc Parotd, Lat Lobe, Dissect 5Th Nerv ([id number]) 01/23/2019 7:31 AM EDT Parotid mass FACIAL NERVE MONITORING, SETUP Routine 01/23/2019 6:14 AM EDT Parotid mass documented in this encounter Results * (ABNORMAL) Differential, Automated (01/23/2019 10:50 AM EDT) Neutrophil % 78.4 % [facility] Neutrophil Absolute 5.47 1.70 - 6.10 x10(3)/[facility] Lymph % 16.3 % [facility] Lymphocytes Abs 1.1 0.9 - 3.2 x10(3)/[facility] Monocyte % 3.0 % [facility] Monocyte Abs 0.2(L) 0.3 - 0.9 x10(3)/[facility] Eos % 0.9 % [facility] Eosinophils Abs 0.1 0.0 - 0.4 x10(3)/[facility] Basophil % 0.7 % [facility] Baso Absolute 0.0 0.0 - 0.1 x10(3)/[facility] Immature Gran % 0.70 % [facility] Comment: Immature granulocytes(IG's)percentage and absolute count will include metamyelocytes, myelocytes, and promyelocytes. Blood smears from CBCs yielding IG's will be scanned manually for concordance. If this scan disagrees with the automated IG or if promyelocytes are noted, a manual differential will be performed. Immature Gran Absolute 0.05(H) 0.00 - 0.04 x10(3)/[facility] Blood specimen (specimen) 01/23/2019 10:50 AM EDT 01/23/2019 11:05 AM EDT Narrative Resulting Agency Comment Spec In Lab Pete FINK HEMATOLOGY ORDERABL ES [facility] [place] [address] * (ABNORMAL) Hemogram (01/23/2019 10:50 AM EDT) White Blood Cell 7.0 4.0 - 9.5 x10(3)/[facility] Red Blood Cell 3.79(L) 4.00 - 5.21 x10(6)/mc L [facility] Hemoglobin 11.6(L) 11.7 - 15.5 gm/dL [facility] Hematocrit 35.5(L) 35.7 - 45.8 % [facility] Mean Cell Volume 93.7 82.6 - 94.4 fL [facility] Mean Cell Hemoglobin 30.6 27.1 - 32.0 pg [facility] Mean Cell Hemoglobin Concentration 32.7 31.7 - 35.0 gm/dL [facility] Platelet 303 145 - 357 x10(3)/mc L [facility] RDW Standard Deviation 43.1 37.0 - 46.0 fL [facility] RDW coefficient of variation 12.5 11.5 - 14.1 % [facility] Mean Platelet Volume 9.2 7.6 - 12.9 fL [facility] NRBC% auto 0.0 % [facility] NRBC Absolute 0.000 0.000 - 0.000 x10(3)/mc L [facility] Blood specimen (specimen) 01/23/2019 10:50 AM EDT 01/23/2019 11:05 AM EDT Narrative Resulting Agency Comment Spec In Lab Pete FINK HEMATOLOGY ORDERABL ES [facility] [place] [address] * Electrolytes panel (01/23/2019 10:50 AM EDT) Sodium 139 135 - 145 mmol/L [facility] Potassium 4.1 3.5 - 5.0 mmol/L [facility] Comment: Please note: ??Patients with WBC >100,000 may have falsely elevated Potassium levels. ??For accurate Potassium quantification in these patients send serum separator tube (gold top) for subsequent determinations. ??Contact the Clinical Chemistry Laboratory if there are any questions. Chloride 102 98 - 107 mmol/L [facility] Carbon Dioxide 27 22 - 31 mmol/L [facility] Anion Gap 10 5 - 15 mmol/L [facility] Blood specimen (specimen) 01/23/2019 10:50 AM EDT 01/23/2019 11:05 AM EDT Narrative Resulting Agency Comment Spec In Lab Sanjeev Ty MD CHEMISTRY ORDERABLE S Performing Organization Address [facility] Co de Phone Number [facility] [place] [address] * Creatinine (01/23/2019 10:50 AM EDT) Creatinine 0.73 0.70 - 1.20 mg/dL [facility] Est Glomerular Filtration Rate 85 >=60 mL/min/1.7 3 m?? [facility] Comment: The eGFR was calculated using the CKD-EPI equation. As with all creatinine based estimates of kidney function, eGFR values calculated with the CKD-EPI equation are not accurate in patients with acute kidney failure, extremes of body mass or the acutely ill. http://[employer]/[facility] eGFR 98 >=60 mL/min/1.7 3 m?? [facility] Comment: The eGFR was calculated using the CKD-EPI equation. As with all creatinine based estimates of kidney function, eGFR values calculated with the CKD-EPI equation are not accurate in patients with acute kidney failure, extremes of body mass or the acutely ill. http://[employer]/[facility] Blood specimen (specimen) 01/23/2019 10:50 AM EDT 01/23/2019 11:05 AM EDT Narrative Resulting Agency Comment Spec In Lab Sanjeev Ty MD CHEMISTRY ORDERABLE S Performing Organization Address City/[facility]/ZIP Co de Phone Number [facility] [place] [address] * BUN (01/23/2019 10:50 AM EDT) Blood Urea Nitrogen 8 8 - 18 mg/dL [facility] Blood specimen (specimen) 01/23/2019 10:50 AM EDT 01/23/2019 11:05 AM EDT Narrative Resulting Agency Comment Spec In Lab Sanjeev Ty MD CHEMISTRY ORDERABLE S [facility] [place] [address] * Surgical Pathology Report (01/23/2019 9:26 AM EDT) Final Diagnosis [id number] ? Location: [facility]; [facility]; The signing pathologist has (i) examined the relevant preparation(s) for the specimen(s) and (ii) rendered or confirmed the diagnosis(es). . 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 ?? (see Discussion.) - One lymph node with ?? no diagnostic abnormality recognized. Electronically signed by: ??MD Jacki, Sha Rivera Verified: ??01/25/2019 ?Pathologist Performed at: ??-[facility] Dept. of Pathology, [place], [place] DISCUSSION The pleomorphic adenoma shows mild [...] x 2.8 x 2.6 cm. Sections/Processi ng: Compressor House Operator sections in 6 cassettes labeled A1-A6. ??PPS/vb 01/25/2019 2:24 PM EDT [facility] PAROTID GLAND STRUCTURE / Unknown 01/23/2019 9:26 AM EDT 01/23/2019 9:26 AM EDT Sanjeev Ty MD PATHOLOGY/CYTOLOGY ORDERABLES Performing Organization Address City/[facility]/[place] [address] * Specimen to Pathology (01/23/2019 9:26 AM EDT) AP Specimen 01/23/2019 9:26 AM EDT 01/23/2019 9:26 AM EDT Narrative [facility] - 01/23/2019 9:26 AM EDT Specimen requisition ordered. ??Separate Pathology report to follow Sanjeev Ty MD PATHOLOGY/CYTOLOGY ORDERABLES Performing Organization Address City/[facility] [place] [address] documented in this encounter Visit Diagnoses Diagnosis Parotid mass Swelling, mass, or lump in head and neck Parotid tumor Neoplasm of unspecified nature of digestive system Parotid mass Swelling, mass, or lump in head and neck documented in this encounter Admitting Diagnoses Diagnosis [...] 10 mg, Oral, DAILY, First dose on Nay 01/24/19 at 0800, Until Discontinued, Routine Given 01/24/2019 [...] Until Nay 01/24/19 at 1450, Wheezing, Routine Given 01/23/2019 7:25 PM EDT 3 mLs lidocaine-EPINEPHrine 1 %-1:200,000 injection ONCE PRN, Starting on Mon01/23/19 at 0800, Until Nay 01/24/19 at 1450, Intra-Operative (Intra-Procedure), Routine Given 01/23/2019 8:00 AM EDT 12.5 mLs 19- Surgical Site montelukast (SINGULAIR) tablet 10 mg 10 mg, [...] 20 mg, Oral, DAILY, First dose on Nay 01/24/19 at 0800, Until Discontinued Given 01/24/2019 8:20 [...] on Mon01/23/19 at 2100, Until Discontinued, Routine 2105 (Given - Provider: Louise Christopher RN) amLODIPine (NORVASC) tablet 10 mg 10 mg, Oral, DAILY, First dose on Mon01/24/19 at 0800, Until Discontinued, Routine 08 (Given - Provid er: Bella Lopez RN - Comment: BP 119/90) busPIRone (BUSPAR) tablet 10 mg 10 mg, Oral, 2 TIMES DAILY, First dose on Mon01/23/19 at 2100, Until Discontinued, Routine 210 (Given - Provider: Louise Christopher RN) 0819 (Given - Provider: Bella Lopez, RN) docusate sodium (COLACE) capsule 100 mg 100 mg, Oral, 2 TIMES DAILY, First dose on Mon01/23/19 at 1245, Until Discontinued, Routine 1247 (Given - Provider: Bella Lopez, RN)2105 (Given - Provider: Louise Christopher, RN) 0819 (Given - Provider: Bella Lopez, RN) veebklspxxa-zhqbitylg-bdgn nter 100-62.5-25 mcg DsDv 1 Inhalation 1 .Inhalation , Inhalation, DAILY, First dose on Nay 01/24/19 at 0900, Until Discontinued 0900 (Not Given - Provider: Bella Lopez, LINDSEY - Reason: Medication not available) heparin (Porcine) subcutaneous injection 5,000 Units 5,000 Units, Subcutaneous, EVERY 8 HOURS SCHEDULED, First dose on Mon01/23/19 at 1400, Until Discontinued, Routine 1347 (Given - Provider: Bella Lopez RN)2106 (Given - Provider: Louise Christopher RN) 0648 (Given - Provider: Louise Christopher, RN) montelukast (SINGULAIR) tablet 10 mg 10 mg, Oral, NIGHTLY, First dose on Mon01/23/19 at 2100, Until Discontinued, Routine 2106 (Given - Provider: Louise Christopher RN) pantoprazole (PROTONIX) tablet 20 mg 20 mg, Oral, DAILY, First dose on Mon01/24/19 at 0800, Until Discontinued 0820 (Given - Provid er: Bella Lopez RN) PARoxetine (PAXIL) tablet 40 mg 40 mg, Oral, EVERY MORNING, First dose on Nay 01/24/19 at 0800, Until Discontinued, Routine 0820 (Given - Provid er: Bella Lopez RN) Continuous Medication Order 01/22/2019 01/23/2019 01/24/2019 sodium chloride 0.9% infusion (CANCELED) 1,000 mL, at 100 mL/hr, Intravenous, CONTINUOUS, Starting on Mon01/23/19 at 1100, Until Mon01/23/19 at 1703 1050 (New Bag - Provider: Yaneth Shea RN)1706 (Stopped - Provider: Bella Lopez RN) PRN Medication Order 01/22/2019 01/23/2019 01/24/2019 acetaminophen [...] Wheezing, Routine 1925 (Given - Provider: Louise Christopher RN) lidocaine-EPINEPHrine 1 %-1:200,000 injection (CANCELED) ONCE PRN, [...] Unit) documented in this encounter Care Teams Manager Front Relationship Specialty Start Date End Date Nayana Blankenship MD [address] [place] [address] PCP - General 03/09/10 documented as of this encounter
--- OUTSIDE RECORDS SUMMARY | 2023-12-15 06:15 | XMS_ITS | Encounter Summary ---
Author Organization [facility] Address [facility] [place] [address] Care Team Providers Care Fibreglass Lay Up Worker Name Role Phone Nayana Blankenship MD Primary Care Provider [phone] Reason for Visit * Reason Comments Follow-up Ct Scan today, Pre O p appoinment with anesthesia * Consultation (Routine) - Closed Specialty Diagnoses / Procedures Referred By Contac t Referred To Contact Otolaryngology Diagnoses lump on left side of neck/jaw Cris oMnte MD [address] [place] [address] Rafy Ty MD [facility] [place] [address] Referral ID Status Reason Start Date Expiration Date Visits Re quested Visits Authorized [id number] Closed 10/10/2018 10/10/2019 1 1 Encounter Details Date Type Department Care Team (Late st Contact Info) Description 11/27/2018 3:40 PM EDT Office Visit [place] [id number] Rafy Ty MD [facility] [place] [address] Parotid mass Social History Tobacco [...] - - Weight 83.5 kg (184 lb) 11/27/2018 4:37 PM EDT Height 157.5 cm (5' 2) 11/27/2018 4:37 PM EDT Body Mass Index 33.65 11/27/2018 4:37 PM EDT documented in this encounter Progress Notes * Bailey Willis MD - 11/27/2018 3:40 PM EDT OTOLARYNGOLOGY - HEAD & NECK SURGERY OUTPATIENT CLINIC FOLLOW-UP NOTE Name: Kyleigh Caballero Age/Sex: 68 y.o. female ENT Attending: Dr. Ty Subjective/History of Present Illness Kyleigh Caballero is a 68 y.o. 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 She last saw Dr. Ty in May 2018. 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 She saw anesthesia today and has been cleared for surgery as her comorbid medical issues are optimized but has been recommendedto see the soybean grower prior to having surgery. Vitals Last value Temperature: Heart Rate: Blood Pressure: Respiratory Rate: SpO2: Physical Exam General: NAD, non-ill appearing Face: Symmetric without dysmorphic features; facial nerve intact. Eyes: EOMI, conjunctiva healthy Ears: Auricles symmetric, no lesions Nose: Patent nares, grossly normal appearance Oral Cavity/Pharynx: Mucosa is pink. Neck: Soft, noted left parotid lesion, mobile. Chest: Unlabored breathing Neuro: Alert & oriented, moving extremities x [address] Neck 11/27/2018 Noted increase in parotid lesion size from 2015. *Personally reviewed and evaluated ASSESSMENT & RECOMMENDATIONS Kyleigh Caballero is a 68 y.o. female here with left parotid lesion. Saw anesthesia today. We had an extensive discussion for 20 minutes regarding bleeding, infection, damage to surrounding structures, need for additional procedures, facial nerve paralysis/injury, hematoma/seroma, as well as the recovery frame and postoperative instructions. All the patient's questions were answered. Recommendations: 1. Consent obtained for left parotidectomy today. Bailey Willis MD, PGY-3 11/27/18 5:23 PM * Rafy Ty MD - 11/27/2018 3:40 PM EDT ENT ATTENDING STAFF NOTE: I personally reviewed the above note including the documented history. I examined the patient, as well as reviewed personally all additional investigations. As noted, she has a complex medical history and somewhat at high risk from undergoing a surgical procedure. The patient was evaluated by anesth esia, and felt to be a reasonable risk. We discussed at length with the patient again the perioperative course of undergoing a parotidectomy. I have discussed the results of the FNA, and a separate phone call preceding this appointment. Discussed that the results indicated the presence of a pleomorphic adenoma. Discussed in detail the placement of the incision, the dissection of the facial nerve, the potential risks and complications related to its dissection, as well as potential risks and complications related to the surgery. The consent was obtained. I also discussed at length with the patient and her family that despite having the best care possible, that she could end up with postanesthesia difficulties. The patient and familyare in agreement to go ahead with the procedure. I agree with the outlined plan. Rafy Ty MD documented in this encounter Plan of Treatment Not on file documented as of this encounter Visit Diagnoses Diagnosis Parotid mass Swelling, mass, or lump in head and neck documented in this encounter Care Teams Fibreglass Lay Up Worker Relationship Specialty Start Date End Date Nayana Blankenship MD [address] [address] PCP - General 03/09/10 documented as of this encounter
--- OUTSIDE RECORDS SUMMARY | 2023-12-15 06:15 | XMS_ITS | Encounter Summary ---
Author Organization [facility] Address [facility] [place] [address] Care Team Providers Care Auto Radiator Mechanic Name Role Phone Nayana Blankenship MD Primary Care Provider [phone] Reason for Referral * Diagnostic Test (Routine) - Closed Specialty Diagnoses / Procedures Referred By Adarsh boo Referred To Contact Radiology Diagnoses Parotid mass Procedures IR Biopsy Parotid IR US Guided Biopsy Thyroid FNA Rafy Ty MD [facility] [place] [address] [facility] [place] [address] Referral ID Status Reason Start Date Expiration Date V isits Requested Visits Authorized [id number] Closed Specialty Service Requested 10/31/2018 10/31/2019 1 1 * Diagnostic Test (Routine) - Closed Specialty Diagnoses / Procedures Referred By Adarsh boo Referred To Contact Radiology Diagnoses Parotid mass Procedures CT Neck Soft Tissue w Contrast (Generic) Rafy Ty MD [facility] [place] [address] [facility] [place] [address] Referral ID Status Reason Start Date Expiration Date V isits Requested Visits Authorized [id number] Closed Specialty Service Requested 10/31/2018 10/31/2019 1 1 Encounter Details Date Type Department Care Team (Late st Contact Info) Description 10/31/2018 [place] [address] Rafy Ty MD [facility] [place] [address] Parotid mass (Primary Dx) Social History Tobacco Use Types Packs/Day Years [...] documented as of this encounter Results * CT Neck Soft [...] below. Rafy Ty MD IMG CT ORDERABLES * Creatinine (11/27/2018 1:30 PM EDT) Creatinine 0.86 0.70 - 1.20 mg/dL [facility] Est Glomerular Filtration Rate 70 >=60 mL/min/1.7 3 m?? [facility] Comment: The eGFR was calculated using the CKD-EPI equation. As with all creatinine based estimates of kidney function, eGFR values calculated with the CKD-EPI equation are not accurate in patients with acute kidney failure, extremes of body mass or the acutely ill. http://[employer]/[facility] eGFR 81 >=60 mL/min/1.7 3 m?? [facility] Comment: The eGFR was calculated using the CKD-EPI equation. As with all creatinine based estimates of kidney function, eGFR values calculated with the CKD-EPI equation are not accurate in patients with acute kidney failure, extremes of body mass or the acutely ill. http://[employer]/[facility] Blood specimen (specimen) 11/27/2018 1:30 PM EDT 11/27/2018 1:43 PM EDT Narrative Resulting Agency Comment Spec In Lab Rafy Ty MD CHEMISTRY ORDERABLE S [facility] [place] [address] * IR Biopsy Parotid (11/14/2018 12:06 PM [...] M.D. Attending: Teo Kuhn M.D. Procedure/Teaching Attestation: IDr. Kuhn was present for theentire procedure Preliminary report signed by: Dallas Canela at 11/14/2018 12:16 PM I have personally reviewed the image(s) and the residents interpretationand agree with the findings, Teo Chase MD at 11/14/2018 1:16 PM Thank you for letting us participate in the care of this patient. Forquestions regarding this report, please contact the number below. Rafy Ty MD IMG IR ORDERABLES documented in this encounter Visit Diagnoses Diagnosis Parotid mass- Primary Swelling, mass, or lump in head and neck Parotid mass Swelling, mass, or lump in head and neck Parotid mass Swelling, mass, or lump in head and neck documented in this encounter Care Teams Auto Radiator Mechanic Relationship Specialty Start Date End Date Nayana Blankenship MD [address] [place] [address] PCP - General 03/09/10 documented as of this encounter
--- OUTSIDE RECORDS SUMMARY | 2023-12-15 06:15 | XMS_ITS | Encounter Summary ---
Author Organization [facility] Address [facility] [place] [address] Care Team Providers Care Floor Service Worker Spring Name Role Phone Nayana Blankenship MD Primary Care Provider [phone] Reason for Visit * Reason Comments Pain Management * Consultation (Routine) - Closed Specialty Diagnoses / Procedures Referred By Adarsh t Referred To Contact Pain Management Diagnoses Other chronic pain Primary osteoarthritis involving multiple joints Vera White MD [facility] [place] [address] Javon Pate MD [facility] [place] [address] Referral ID Status Reason Start Date Expiration Date V isits Requested Visits Authorized [id number] Closed Consult, Test & Treat 05/14/2015 05/13/2016 1 1 Encounter Details Date Type Department Care Team (Late st Contact Info) Description 05/20/2015 10:30 AM EST [place] [address] Javon Pate MD [facility] [place] [address] Chronic pain syndrome Social History Tobacco Use Types Packs/Day Years [...] Sign Reading Time Taken Comments Blood Pressure 138/82 05/20/2015 10:16 AM EST Pulse 95 05/20/2015 10:16 AM EST Temperature - - Respiratory Rate - - Oxygen Saturation 96% 05/20/2015 10:16 AM EST Inhaled Oxygen Concentration - - Weight 84.4 kg (186 lb) 05/20/2015 10:16 AM EST Height 157.5 cm (5' 2) 05/20/2015 10:16 AM EST Body Mass Index 34.02 05/20/2015 10:16 AM EST documented in this encounter Progress Notes * Javon Pate MD - 05/20/2015 11:23 AM EST I am seeing Ms. Caballero at the request of Dr. Nayana Blankenship and Dr. Vera White for assessment of her chronic pain needs and potential for opioid use. Thank you so much Dr. White and Dr. Blankenship for allowing me to participate in the care of Ms. Kyleigh Caballero. Her Teo Cruz, who accompanies her today has been a patient of mine for more than a decade and he is a wonderful man, who has done very well. Because of this, I am quite disturbed to learn of what happened with Ms. Caballero. She is a very pleasant 65-year-old woman with a chief complaint today of bilateral shoulder pain, but she has had a variety of chronic pain complaints over the years and has been treated with hydrocodone for many years with somewhat satisfactory results. She and Teo have always felt that she was under treated, but still she did get benefit from the use of the hydrocodone. She explained to me that she had shingles and was overusing her hydrocodone, which she had done on a couple of occasions in the past and had to call for early refills and was having such severe pain that she took one of Teo's oxycodone tablets. Dr. Blankenship obtained urine toxicology on her and it was positive for oxycodone and she had not informed Dr. Blankenship that she had taken his pill. On this basis, Dr. Blankenship has discontinued her opioid treatment and I agree with this decision. She saw Dr. White and was asking Dr. White about whether or not she would prescribe opioids and Dr. White declined and I think that I agree with both Dr. Blankenship and Dr. White. Because of the presence of oxycodone in her urine, because of the fact that she was admitted to the hospital on at least one occasion, obtunded and possibly from a potential overdose of benzodiazepines, which she explained to me today and because of the diffuse nature of her pain complaints and her very severe comorbidities i.e. chronic pulmonary disease with multiple hospitalizations and frequent hospitalizations, I have explained to them that I would not prescribe opioids to them either. I have explained to them that my records are potentially reviewed and with the urine positive for oxycodone, I could not continue to prescribe hydrocodone to her and I have advised her and Teo that the use of somebody else's opioid is a felony. They were very pleasant and understood. What I did recommend and that would be with your agreement Dr. Blankenship is that she might be a candidate for medical marijuana and might be as useful for her pain as opioids. She does have a qualifying medication condition that is severe pain related to degenerative joint disease. She is considering having a shoulder replacement right now and I have written on a piece of paper for them that they could obtain a 1:1 ratio of THC to CBD, which would not be psychoactive and might help with her pain. Ms. Caballero described to me the fact that she developed paranoia when she used marijuana as a youth and that is a risk, but I have advised her that it might be reasonable if Dr. Blankenship agrees for her to try marijuana again and just start with a very low and use a non-psychoactive edible version. I do not recommend the inhalational version because of her severe COPD and her use of home oxygen therapy, but this might be an option for pain relief for her. Other than that, I do not really have anything to offer. I think that both Dr. Blankenship and Dr. White have made prudent decisions with regard to opioid use for Ms. Caballero and I agree and support their decisions and I am unwilling to prescribe opioids to her either because I am concerned about the risk to her it might involve. We spent 30 minutes together today, 20 of which was spent with my explaining all that to her in detail. documented in this encounter Plan of Treatment Scheduled Referrals Name Type Priority Associated Diagnoses Orde r Schedule Referral to Pain Clinic Outpatient Referral Routine Other chronic pain Primary osteoarthritis involving multiple joints Ordered: 05/14/2015 documented as of this encounter Visit Diagnoses Diagnosis Chronic pain syndrome documented in this encounter Care Teams Floor Service Worker Spring Relationship Specialty Start Date End Date Nayana Blankenship MD [address] [place] [address] PCP - General 03/09/10 documented as of this encounter
--- OUTSIDE RECORDS SUMMARY | 2023-12-15 06:16 | XMS_ITS | Encounter Summary ---
Author Organization [facility] Address [facility] [place] [address] Care Team Providers Care Credit Collections Clerk Name Role Phone Nayana Blankenship MD Primary Care Provider [phone] Encounter Details Date Type Department Care Team (Late st Contact Info) Description 06/03/2013 [place] [address] Boaz Rowell MD [facility] [place] [address] Social History Tobacco Use Types Packs/Day Years Used Date Smoking Tobacco: Former Alcohol Use Standard Drinks/Week Comments No 0 (1 standard drink = 0.6 oz pur e alcohol) A few beers a week Sex and Gender Information Value Date Recorded Sex Assigned at Not on file Gender Identity Not on file Sexual Orientation Not on file documented as of this encounter Plan of Treatment Pending Results Name Type Priority Associated Diagnoses Date /Time Film Library- Storage only DX Chest Imaging Routine 06/03/2013 1:14 AM EST documented as of this encounter Visit Diagnoses Not on filedocumented in this encounter Care Teams Credit Collections Clerk Relationship Specialty Start Date End Date Nayana Blankenship MD [address] [place], [place] [id number] PCP - General 03/09/10 documented as of this encounter
--- OUTSIDE RECORDS SUMMARY | 2023-12-15 06:16 | XMS_ITS | Encounter Summary ---
Author Organization [facility] Address [facility] [place] [address] Care Team Providers Care Beam Department Supervisor Name Role Phone Nayana Blankenship MD Primary Care Provider [phone] Encounter Details Date Type Department Care Team (Late st Contact Info) Description 04/23/2013 [place] [address] Andrzej Chapman MD [facility] [place] [address] Social History Tobacco Use Types Packs/Day Years [...] encounter Miscellaneous Notes * Telephone Encounter - Nette Nava - 04/23/2013 11:[address] Chapman, Please call Mr. Cruz [phone] regarding Kyleigh, She has had a very tough time after her most recent admission. Jessa, Nette documented in this encounter Plan of Treatment Not on file documented as of this encounter Visit Diagnoses Not on filedocumented in this encounter Care Teams Beam Department Supervisor Relationship Specialty Start Date End Date Nayana Blankenship MD [address] [place] [address] PCP - General 03/09/10 documented as of this encounter
--- OUTSIDE RECORDS SUMMARY | 2023-12-15 06:16 | XMS_ITS | Encounter Summary ---
Author Organization [facility] [place] [address] Care Team Providers Care Chocolate Coater Name Role Phone Nayana Blankenship MD Primary Care Provider [phone] Reason for Visit * Reason Onset Date Comments Follow-up 02/14/2014 hospital admissi on last week. Encounter Details Date Type Department Care Team (Late st Contact Info) Description 02/14/2014 Telephone [place] [id number] Parmjit Nolasco, RN Follow-up (hospital admission last week.) Social History Tobacco Use Types Packs/Day Years [...] encounter Miscellaneous Notes * Telephone Encounter - Parmjit Nolasco, RN - 02/14/2014 10:06 AM EDT Patient's caregiver calling stating that he wanted to follow up with Chief Cloth Finishing Range Operator. Stating thatpatient was in [facility] last week and wanted to make sure that he received the notes from that admission. Patient also notes that she is bringing up dark brown sputum in the mornings. Will forward. documented in this encounter Plan of Treatment Not on file documented as of this encounter Visit Diagnoses Not on filedocumented in this encounter Care Teams Chocolate Coater Relationship Specialty Start Date End Date Nayana Blankenship MD [address] [place] [address] PCP - General 03/09/10 documented as of this encounter
--- OUTSIDE RECORDS SUMMARY | 2023-12-15 06:16 | XMS_ITS | Encounter Summary ---
Author Organization [facility] Address [facility] [place] [address] Care Team Providers Care Telemarketer Supervisor Name Role Phone Nayana Blankenship MD Primary Care Provider [phone] Encounter Details Date Type Department Care Team (Late st Contact Info) Description 06/10/2013 Orders [place] [address] Wm De Leon MD [facility] [place] [address] Social History Tobacco Use Types Packs/Day Years [...] Library- Storage only DX Chest Imaging Routine 06/10/2013 8:15 AM EST documented as of this encounter Visit Diagnoses Not on filedocumented in this encounter Care Teams Telemarketer Supervisor Relationship Specialty Start Date End Date Nayana Blankenship MD [address] [place], [place] [id number] PCP - General 03/09/10 documented as of this encounter
--- OUTSIDE RECORDS SUMMARY | 2023-12-15 06:16 | XMS_ITS | Encounter Summary ---
Author Organization [facility] Address [facility] [place] [address] Care Team Providers Care Stone Driller Name Role Phone Nayana Blankenship MD Primary Care Provider [phone] Encounter Details Date Type Department Care Team (Latest Contact Info) Description 05/01/2013 9:30 AM EST - 05/01/2013 11:59 PM EST Hospital Encounter [place] [address] SCHEDULE 1, PFT Andreas Andrews MD [facility] [place] [address] SOB (shortness of breath) (Primary Dx) Discharge Disposition: Home Social History Tobacco Use [...] Sig Dispensed Refills Start Date End Date amitriptyline (ELAVIL) 75 mg tablet Take 1 [...] 1 Tablet(s), PO, Three times daily 05/14/2010 predniSONE (DELTASONE) 10 mg tablet Take 20 mg by mouth daily. 09/12/2013 furosemide (LASIX) 20 mg tablet Take 20 mg by mouth daily. 04/16/2013 11/27/2018 levofloxacin (LEVAQUIN) 750 mg tablet Take 750 mg by mouth daily. 09/12/2013 sulfamethoxazole-tri methoprim (BACTRIM DS) 800-160 mg per tablet Take 1 tablet by mouth every other day. 30 tablet 3 03/01/2013 09/12/2013 doxycycline (VIBRA-TABS) 100 mg tablet Take 1 tablet by mouth 2 times daily. 14 tablet 0 02/27/2013 09/12/2013 predniSONE (DELTASONE) 20 mg tablet Take 1 tablet by mouth daily. 30 tablet 2 02/27/2013 09/12/2013 cefPODoxime (VANTIN) 200 mg tablet Take 1 tablet by mouth 2 times daily. 14 tablet 0 02/27/2013 09/12/2013 hydroCODone-acetamin ophen (VICODIN) 5-500 mg per tablet Take 1 tablet by mouth every 6 hours as needed. 11/27/2018 diaZEPam (VALIUM) 5 mg tablet Take 5 mg by mouth 2 times daily. 11/27/2018 fluticasone-salmeter ol (ADVAIR DISKUS) 500-50 mcg/dose diskus inhaler Inhale 1 puff into the lungs 2 times daily. 1 Inhaler 0 11/20/2012 11/27/2018 levalbuterol (XOPENEX) 0.63 mg/3 mL nebulizer solution Take 3 mLs by nebulization every 4 hours as needed for Wheezing. 3 mL 0 11/20/2012 02/04/2014 omeprazole (PRILOSEC) 20 mg capsule Take 1 capsule by mouth daily. 90 capsule 3 11/20/2012 11/27/2018 simvastatin (ZOCOR) 20 mg tablet Take 1 tablet by mouth nightly. 90 tablet 3 11/20/2012 09/12/2013 tiotropium (SPIRIVA WITH HANDIHALER) 18 mcg inhalation capsule Inhale 1 capsule into the lungs daily. 90 capsule 0 11/20/2012 11/27/2018 nystatin (MYCOSTATIN) 100,000 unit/mL suspension Take 5 mLs by mouth 3 times daily as needed. 60 mL 0 11/20/2012 09/12/2013 DICLOFENAC SODIUM/MISOPROSTOL (ARTHROTEC 50 ORAL) 05/14/2010 09/13/19 14 documented as of this encounter Procedure Notes * Andreas Andrews MD - 05/01/2013 6:32 PM ESTAssociated Order(s): PULMONARY FUNCTION TEST FVC is normal. FEV1 and FEV/FVC are reduced. Diffusing capacity is reduced. Oxygen saturation on 2 L decreased significantly while walking. Impression: mild obstructive defect with decreased diffusing capacity, suggestive of emphysema. documented in this encounter Plan of Treatment Not on file documented as of this encounter Procedures Procedure Name Priority Date/Time Associated Diagnosis Comments COMMON PULMONARY FUNCTION TEST Routine 05/01/2013 6:33 PM EST SOB (shortness of breath) documented in this encounter Results * Pulmonary Function Testing (05/01/2013 6:33 PM EST) Narrative Andreas Andrews MD - 05/01/2013 6:33 PM EST Andreas Andrews MD ? 05/01/2013 ??6:33 PM FVC is normal. ??FEV1 and FEV/FVC are reduced. ??Diffusing capacity is reduced. ??Oxygen saturation on 2 L ??decreased significantly while walking. Impression: mild obstructive defect with decreased diffusing capacity, suggestive of emphysema. Procedure Note Andreas nAdrews MD - 05/01/2013 6:32 PM EST FVC is normal. FEV1 and FEV/FVC are reduced. Diffusing capacity isreduced. Oxygen saturation on 2 L decreased significantly whilewalking. Impression: mild obstructive defect with decreased diffusing capacity,suggestive of emphysema. Authorizing Provider Result Ac De Leon MD PFT ORDERABLES documented in this encounter Visit Diagnoses Diagnosis SOB (shortness of breath)- Primary Shortness of breath documented in this encounter Care Teams Stone Driller Relationship Specialty Start Date End Date Nayana Blankenship MD [address] [place] [address] PCP - General 03/09/10 documented as of this encounter
--- OUTSIDE RECORDS SUMMARY | 2023-12-15 06:16 | XMS_ITS | Encounter Summary ---
Author Organization [facility] Address [facility] [place] [address] Care Team Providers Care Asbestos Surveyor Name Role Phone Nayana Blankenship MD Primary Care Provider [phone] Encounter Details Date Type Department Care Team (Latest Contact Info) Description 12/10/2013 10:30 AM EDT - 12/10/2013 11:59 PM EDT Hospital [place] [address] SCHEDULE 1, PFT Wm De Leon MD [facility] [place] [address] Interstitial lung disease (Primary Dx) Discharge Disposition: Home Social History [...] Sig Dispensed Refills Start Date End Date montelukast (SINGULAIR) 10 mg Tablet Take 10 [...] 1 Tablet(s), PO, Three times daily 05/14/2010 DICLOFENAC SODIUM (VOLTAREN TOP) 10/30/2013 02/04/2014 diclofenac (VOLTAREN) 75 mg Tablet, Delayed Release (E.C.) 09/25/2013 11/27/2018 morphine (MSIR) 15 mg tablet 08/28/2013 02/04/2014 morphine (MS CONTIN) 15 mg 12 hr tablet Take 15 mg by mouth 2 times daily. 02/04/2014 metFORMIN (GLUCOPHAGE) 1,000 mg tablet Take 1,000 [...] 11/20/2012 11/27/2018 documented as of this encounter Procedure Notes * Hazel Fink MD - 12/10/2013 6:11 PM EDTAssociated Order(s): PULMONARY FUNCTION TEST The SPO2 on room air at rest was 90%. After walking 20 feet on room air, the SPO2 was 87%. After walking 300 feet on 4 L per minute nasal cannula oxygen, the SPO2 was 91%. documented in this encounter Plan of Treatment Not on file documented as of this encounter Procedures Procedure Name Priority Date/Time Associated Diagnosis Comments COMMON PULMONARY FUNCTION TEST Routine 12/11/2013 1:27 PM EDT Interstitial lung disease documented in this encounter Results * Pulmonary Function Testing (12/11/2013 1:27 PM EDT) Narrative Hazel Fnik MD - 12/11/2013 1:27 PM EDT Hazel Fink MD ? 12/11/2013 ??1:27 PM The SPO2 on room air at rest was 90%. ??After walking 20 feet on room air, the SPO2 was 87%. ??After walking 300 feet on 4 L per minute nasal cannula oxygen, the SPO2 was 91%. Procedure Note Hazel Fink MD - 12/10/2013 6:11 PM EDT The SPO2 on room air at rest was 90%. After walking 20 feet on room air,the SPO2 was 87%. After walking 300 feet on 4 L per minute nasal cannula oxygen,the SPO2 was 91%. Authorizing Provider Result Ac De Leon MD PFT ORDERABLES documented in this encounter Visit Diagnoses Diagnosis Interstitial lung disease- Primary Postinflammatory pulmonary fibrosis documented in this encounter Care Teams Asbestos Surveyor Relationship Specialty Start Date End Date Nayana Blankenship MD [address] [place] [address] PCP - General 03/09/10 documented as of this encounter
--- OUTSIDE RECORDS SUMMARY | 2023-12-15 06:16 | XMS_ITS | Encounter Summary ---
Author Organization [facility] Address [facility] [place] [address] Care Team Providers Care Highway Maintenance Crew Worker Name Role Phone Nayana Blankenship MD Primary Care Provider [phone] Reason for Referral * Consultation (Routine) - Closed Specialty Diagnoses / Procedures Referred By Adarsh boo Referred To Contact Gastroenterology Diagnoses Interstitial lung disease Wm De Leon MD [facility] [place] [address] Hermes Molina APRN [facility] DR GASTRO[place] [address] Referral ID Status Reason Start Date Expiration Date V isits Requested Visits Authorized [id number] Closed Consult, Test & Treat 12/16/2013 06/14/2014 1 1 Reason for Visit * Reason Comments Follow-up Encounter Details Date Type Department Care Team (Late st Contact Info) Description 12/10/2013 9:15 AM EDT [place] [address] Wm De Leon MD [facility] [place] [address] Interstitial lung disease (Primary Dx) Discharge Disposition: [...] Sign Reading Time Taken Comments Blood Pressure 131/77 12/10/2013 9:19 AM EDT Pulse 88 12/10/2013 9:19 AM EDT Temperature - - Respiratory Rate 20 12/10/2013 9:19 AM EDT Oxygen Saturation 98% 12/10/2013 9:19 AM EDT Inhaled Oxygen Concentration - - Weight 89.8 kg (198 lb) 12/10/2013 9:19 AM EDT Height 157.5 cm (5' 2) 12/10/2013 9:19 AM EDT Body Mass Index 36.21 12/10/2013 9:19 AM EDT documented in this encounter Progress Notes * Wm De Leon MD - 12/10/2013 12:04 PM EDT [facility] Section of Pulmonary and Critical Care Medicine Outpatient Consultation Date of Encounter: 12/10/2013 Referring Provider: Nayana Blankenship Md [address] [place] [id number] Reason for Consultation: Follow up for 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 SHe has been gaining ground walking and is using her oxygen at four liters as she walks, sometimes up to 30 mins on both level and grade. Shehas tapered from 20 to 15 mg of Prednisone for her presumed DATA QUALITY CONSULTANT and that has gone without incident. She has been aspirating less at night. SHe still have overt belching with liquid and sometimes foodparticles that come into the back of her throat and that she has to clear from her lungs. She had a cine swallow with speech prior and they have given her suggestions and she is not eating and talking at the same time. She is on Omeprazole 40mg bid. She has had a bit of congestion recently with grand daughter bringing home a virus. Past Medical and Surgical History: COPD (chronic obstructive pulmonary disease) Anxiety Depression Hypertension Arthritis GERD (gastroesophageal reflux disease) Hepatitis C Family History: see prior work up Social and Occupational History: see prior work up Current Medications: Current Outpatient Prescriptions on File Prior to Visit Medication Sig Dispense Refill ??? metFORMIN (GLUCOPHAGE) 1,000 mg tablet Take 1,000 mg by mouth 2 times daily (with meals). Patient is unsure of dose ??? predniSONE (DELTASONE) 20 mg tablet Take 20 mg by mouth. ??? furosemide (LASIX) 20 mg tablet Take 20 mg by mouth daily. ??? diaZEPam (VALIUM) 5 mg tablet Take [...] ERGOCALCIFEROL, VITAMIN D2, (VITAMIN D ORAL) ??? morphine (MSIR) 15 mg tablet ??? morphine (MS CONTIN) 15 mg 12 hr tablet Take 15 mg by mouth 2 times daily. ??? hydroCODone-acetaminophen (VICODIN) 5-500 mg per tablet Take 1 tablet by mouth every 6 hours asneeded. ??? levalbuterol (XOPENEX) 0.63 mg/3 mL nebulizer solution Take 3 mLs by nebulization every 4 hoursas needed for Wheezing. 3 mL 0 ??? ibuprofen (ADVIL;MOTRIN) 800 mg tablet 800 MG = 1 Tablet(s), PO, Three times daily Adverse Drug Reactions: Allergies Allergen Reactions ??? Alendronate Sodium CIS [...] NIGHTMARES, CIS - NIGHTMARES Review of Systems: N = No Y = Yes GENERAL HEENT CV PULM x All negative x All negative x All negative All negative Weight loss Headache Angina x Non-productive cough Weight gain Vision change Palpitations Productive cough Fevers Sinus congestion Presyncope Wheezing Chills Rhinorrhea Syncope Hemoptysis Diaphoresis Epistaxis LE edema Pleuritic pain Poor sleep Post-nasal drip Claudication Orthopnea Fatigue Throat clearing Paroxysmal dyspnea Dry eyes/mouth Platypnea Otalgia Hoarseness MSK RENAL ENDO GI/NUTRITION All negative x All negative x All negative All negative x Arthralgias Polyuria Heat intolerance x GERD Myalgias Oliguria Cold intolerance Dysphagia Deformity Hematuria Polydipsia Odynophagia Stiffness Flank pain Polyphagia Abdominal discomfort Wasting Dysuria Cushingoid Constipation Nocturia Hyperglycemia Diarrhea Hypoglycemia Nausea Steatorrhea LYMPH SKIN NEURO PSYCH x All negative x All negative x All negative x All negative Swollen nodes Rash Seizures Depressed affect Tender nodes Ulcers Tremors Occupational stress Diffuse nodes Purpura Spasticity Troubled relationship(s) Local nodes Pigmented lesion Focal weakness Insomnia Telangiectasias Diplopia Anxiety Angiomata Paresthesias Absenteeism Tanned skin Physical Examination: BP 131/77 Pulse 88 Resp 20 Ht 157.5 cm (5' 2) Wt 89.812 kg (198 lb) BMI 36.21 kg/m2 SpO2 98% GENERAL APPEARANCE: looks well on four liters of oxygen HEENT: no thrush NECK:no jvd, no thrush CHEST: no real crackles that don't clear with the first breath. NO wheezing HEART: no m, no S3 ABDOMEN: obese, non tender EXTREMITY: no swelling, no clubbing SKIN: minor pred skin changes Diagnostic Testing: none IMAGING: new chest film today Findings There has been significant interval decrease in bilateral patchy opacities. However the continues to be scattered hazy opacities on with an area of linear scarring in the right upper lobe. There is a no interval for improvement of right lower lobe atelectasis. Cardiomediastinal silhouette, pulmonary vasculature, and cady are unremarkable. No acute changes in osseous structures compared to prior exam. Impression Interval improvement in bilateral patchy opacities. However continues to have scattered hazy opacities throughout both lungs which may result represent residual disease versus infectious change but given history of COPD malignancy cannot be excluded. Further follow up suggested SPIROMETRY: walking on room air she desaturates to 87 only after about 20 feet. Has a maintained sat of 91% on four liters after 300 feet. April 2013, FVC 97%, FEV1 72%, DLCO 50% CULTURES: none PERTINENT LABS: none Impression / Plan of Care: Recurrent xray changes that are in new areas which again raises the issue of recurrent aspiration as the cause of many of these recurrent respiratory events. This is on theback drop of a fair amount of emphysema. I am impressed with the degree of hypoxemia with exertion,but when I saw today's chest film I can understand this a bit better given that she continues to have airspace disease. She feels much improved in general off of Presnisone She feels overt aspiration of liquid and food despite being on a PPi and she very much needs a GI evaluation that I will order today. Orders Placed This Encounter Procedures ??? Pulmonary Function Testing Standing Status: Future Number of Occurrences: 1 Standing Expiration Date: 12/10/2014 Order Specific Question: Home O2 Eval (desaturation screen): Answer: x ? ? 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 Order Specific Question: Where will study be performed? Answer: [facility] Order Specific Question: Stat read required? Answer: No Order Specific Question: Portable exam? Answer: No documented in this encounter Plan of Treatment Scheduled Referrals Name Type Priority Associated Diagnoses Order Schedule Referral to Gastroenterology Outpatient Referral Routine Interstitial lung disease Ordered: 12/16/2013 documented as of this encounter Results * Pulmonary Function Testing (12/11/2013 1:27 PM EDT) Narrative Hazel Fink MD - 12/11/2013 1:27 PM EDT Hazel [...] minute nasal cannula oxygen,the SPO2 was 91%. 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 Comparison PA and lateral chest x-rays on October 17, 2013 and June 10, 2013 Technique PA and lateral chest x-ray Findings There has been significant interval decrease in bilateral patchy opacities. However the continues to be scattered hazy opacities on with an area of linear scarring in the right upper lobe. There is a no interval for improvement of right lower lobe atelectasis. Cardiomediastinal silhouette, pulmonary vasculature, and cady are unremarkable. No acute changes in osseous structures compared to prior exam. Impression Interval improvement in bilateral patchy opacities. However continues to have scattered hazy opacities throughout both lungs which may result represent residual disease versus infectious change but given history of COPD malignancy cannot be excluded. Further follow up suggested ?? 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 Comparison PA and lateral chest x-rays on October 17, 2013 and June 10, 2013 Technique PA and lateral chest x-ray Findings There has been significant interval decrease in bilateral patchyopacities. However the continues to be scattered hazy opacities on with an area oflinear scarring in the right upper lobe. There is a no interval for improvementof right lower lobe atelectasis. Cardiomediastinal silhouette, pulmonary vasculature, and cady are unremarkable. No acute changes in osseousstructures compared to prior exam. Impression Interval improvement in bilateral patchy opacities. However continues tohave scattered hazy opacities throughout both lungs which may result represent residual disease versus infectious change but given history of COPDmalignancy cannot be excluded. Further follow up suggested Film and interpretation reviewed by the attending Authorizing Provider Result Ac De Leon MD IMG DX ORDERABLES documented in this encounter Visit Diagnoses Diagnosis Interstitial lung disease- Primary Postinflammatory pulmonary fibrosis Interstitial lung disease- Primary Postinflammatory pulmonary fibrosis Interstitial lung disease Postinflammatory pulmonary fibrosis documented in this encounter Care Teams Highway Maintenance Crew Worker Relationship Specialty Start Date End Date Nayana Blankenship MD [address] [place] [address] PCP - General 03/09/10 documented as of this encounter
--- OUTSIDE RECORDS SUMMARY | 2023-12-15 06:16 | XMS_ITS | Encounter Summary ---
Author Organization [facility] [place] [address] Care Team Providers Care Compotype Operator Name Role Phone Nayana Blankenship MD Primary Care Provider [phone] Encounter Details Date Type Department Care Team (Late st Contact Info) Description 05/16/2013 [place] [id number] Parmjit Nolasco RN Social History Tobacco Use Types Packs/Day Years [...] Miscellaneous Notes * Telephone Encounter - Parmjit Nolasco RN - 05/22/2013 2:22 PM EST Patient's hospice team lead calling stating that Pulmonary provider wanted some form of swallowing study done prior to appointment of 06/05/13. Sewer Connector would like to see if study can be completed on same day as appointment. Will forward. * Telephone Encounter - Parmjit Nolasco RN - 05/16/2013 11:50 AM EST Patient's hospice team lead calling stating that he would like to get some advice from Pulmonary provider regarding current inpatient treatment. Caregiver states that her WBC count is 14. Will forward. documented in this encounter Plan of Treatment Not on file documented as of this encounter Visit Diagnoses Not on filedocumented in this encounter Care Teams Compotype Operator Relationship Specialty Start Date End Date Nayana Blankenship MD [address] [place] [address] PCP - General 03/09/10 documented as of this encounter
--- OUTSIDE RECORDS SUMMARY | 2023-12-15 06:16 | XMS_ITS | Encounter Summary ---
Author Organization [facility] Address [facility] [place] [address] Care Team Providers Care Heavy Equipment Rental Associate Name Role Phone Nayana Blankenship MD Primary Care Provider [phone] Encounter Details Date Type Department Care Team (Late st Contact Info) Description 09/17/2013 Tele[place] [address] Andrzej Chapman MD [facility] [place] [address] Social History Tobacco Use Types Packs/Day Years [...] encounter Miscellaneous Notes * Telephone Encounter - Andrzej Chapman MD - 09/17/2013 1:16 PM EDT Got a call from Teo (her significant other) updating that Ms caballero ended up in hospital again yesterday. She was noted to be febrile (~102F) along with having hard time breathing and worsening hypoxemia (~85% on 4-5L of O2). Her steroid dosing was recently decreased but her conrad is too quick to be due to decrease in steroid dose. More importantly her fevers can not be explained by reduction in steroid dose either. She has been told to have pneumonia for which she is being treated at OSH. At this time I have requested if we can get her films obtained on admission to OSH along with other pertinent data. Will follow and make changes as indicated. documented in this encounter Plan of Treatment Not on file documented as of this encounter Visit Diagnoses Not on filedocumented in this encounter Care Teams Heavy Equipment Rental Associate Relationship Specialty Start Date End Date Nayana Blankenship MD [address] [place] [address] PCP - General 03/09/10 documented as of this encounter
--- OUTSIDE RECORDS SUMMARY | 2023-12-15 06:16 | XMS_ITS | Encounter Summary ---
Author Organization [facility] [place] [address] Care Team Providers Care Kiln Labourer Name Role Phone Nayana Blankenship MD Primary Care Provider [phone] Reason for Visit * Reason Onset Date Comments Follow-up 06/10/2013 Encounter Details Date Type Department Care Team (Late st Contact Info) Description 06/10/2013 Telephone [place] [id number] Parmjit Nolasco, RN Follow-up Social History Tobacco Use Types Packs/Day Years [...] Telephone Encounter - Parmjit Nolasco RN - 06/10/2013 11:14 AM EST Patient's caregiver calling stating that patient is now out of the hospital and that they signed a KHO[facility] form so that imaging would be sent to Pulmonary provider. Wanted to know when they should consider scheduling a follow up. documented in this encounter Plan of Treatment Not on file documented as of this encounter Visit Diagnoses Not on filedocumented in this encounter Care Teams Kiln Labourer Relationship Specialty Start Date End Date Nayana Blankenship MD [address] [place] [address] PCP - General 03/09/10 documented as of this encounter
--- OUTSIDE RECORDS SUMMARY | 2023-12-15 06:16 | XMS_ITS | Encounter Summary ---
Author Organization [facility] Address [facility] [place] [address] Care Team Providers Care Services Engineer Name Role Phone Nayana Blankenship MD Primary Care Provider [phone] Encounter Details Date Type Department Care Team (Late st Contact Info) Description 06/07/2013 Orders [place] [address] Boaz Rowell MD [facility] [place] [address] Social History Tobacco Use Types Packs/Day Years [...] Library- Storage only DX Chest Imaging Routine 06/07/2013 1:16 AM EST documented as of this encounter Visit Diagnoses Not on filedocumented in this encounter Care Teams Services Engineer Relationship Specialty Start Date End Date Nayana Blankenship MD [address] [place], [place] [id number] PCP - General 03/09/10 documented as of this encounter
--- OUTSIDE RECORDS SUMMARY | 2023-12-15 06:16 | XMS_ITS | Encounter Summary ---
Author Organization [facility] Address [facility] [place] [address] Care Team Providers Care Make Up Girl Name Role Phone Nayana Blankenship MD Primary Care Provider [phone] Reason for Visit * Reason Comments COPD Encounter Details Date Type Department Care Team (Late st Contact Info) Description 09/12/2013 1:45 PM EDT [place] [address] Andrzej Chapman MD [facility] [place] [address] Cryptogenic organizing pneumonia (Primary Dx); COPD (chronic obstructive pulmonary disease); VIVIENNE (obstructive sleep apnea); Hypoxemia Discharge Disposition: Home Social History Tobacco Use [...] Sign Reading Time Taken Comments Blood Pressure 132/77 09/12/2013 1:45 PM EDT Pulse 97 09/12/2013 1:45 PM EDT Temperature - - Respiratory Rate 22 09/12/2013 1:45 PM EDT Oxygen Saturation 99% 09/12/2013 1:4 5 PM EDT O2 continuous @ 2 liters Inhaled Oxygen Concentration - - Weight 92.1 kg (203 lb) 09/12/2013 1:45 PM EDT Height 157.5 cm (5' 2.01) 09/12/2013 1 :45 PM EDT Body Mass Index 37.12 09/12/2013 1:45 PM EDT documented in this encounter Progress Notes * Andrzej Chapman MD - 09/12/2013 1:17 AM EDT [facility] Section of Pulmonary and Critical Care Medicine Follow-Up Visit Date of Encounter: 09/12/2013 Location: Office Referring Provider: Nayana Blankenship Md [address] [place] [id number] C/C: DANCE HISTORIAN, COPD HPI: 63 y/o female seen as a follow up with last office visit on 06/20/13. Briefly, she has a history of COPD, strep milleri pneumonia in 02/2011 s/p decortication, PNA in 06/2012 s/p a fall, hypertension, anxiety/depression, and hepatitis C. She has a history of being hospitalized at least once a year forthe last 10 years for respiratory issues. She was admitted to [facility] in November after being transferred from an OSH for further evaluation of SOB/hemoptysis from 11/15/12-11/20/12. Prior to that admission starting around August of 2012 she was treated with antibiotics couple of times for a sinus infection. For this she was seen in ER at [facility] around mid to end October when she had a chest CT which showed emphysema with b/l ground glass opacities. She was than transferred to [facility] for further work upand management. During her hospital course she was treated for COPD exacerbation and CAP. Blood andsputum cultures were normal and viral DFA and Legionella Ag were negative. Etiologies considered for her presentation were Jass's/Granulomatosis Polyangitiitis (GPA), Microscopic Polyangiitis (MPA), Churg Laura, Goodpasture's, RPGN, Lupus, Hypersensitivity pneumonitis. However, ANGIE, cANCA, pANCA, MPO, Pr3 and Hypersensitivity panel were all negative. IgA and IgM were wnl and IgG only slightly below normal. Following the treatment her hypoxia improved and she was discharged to complete 5d of her Abx and on a steroid taper (initially at 60mg qd). When seen in office as a follow up she again complained of some hemoptysis the day before (brown tinged sputum - no radha bright red blood). She also reported some dull achy chest pain that did not radiate and was reprodicable on chest wall palpation. The acute worsening of symptoms over the weekend coincided with reducing steroids to 10mg qd. Based on that her steroid dose was increased to 30 mg to see if this relieves her symptoms. Reviewing her history, imaging studies, and response to steroids it was thought that she likely has cryptogenic organizing pneumonia (DANCE HISTORIAN). On a follow up telephone conversation her chest tightness significantly improved together with no more gaby colored sputum on higher dose steroid. She was at again [facility] for RLL pneumonia in February 2013. On that admission she did have a leukocytosis of 22k while requiring oxygen at 3L via NC. She did well during her hospital stay with resolution of leukocytosis (8.5k at discharge) and her O2 requirement down to baseline at 2L NC. On discharge, she was continued on antibiotics for 7 more days. When seen in March 2013 following the discharge from [facility] she was again on outpatient course of Levaquin per her PCP. Soon after seen in office on 03/26/13 [address] up in [facility] with LLL pneumonia around 03/30/13. She was again noted to be hypoxic with a leukocytosis (~25k). Following the discharge she was seen in office on 05/01/13.Since seen in office the last time she ended up at [facility] number of times due to breathing issues, at times felt to be due to PNA. It is interesting to note that these recurrent admission coincided with decreasing dose of Prednisone. Also, when seen the last time on 05/01/13 she complained of left shoulder after pulling up on bar while at [facility] during March 2013. The pain wasdescribed as constant, sharp, and 7/10 in intensity. She was using oxygen at 2L on rest and 4L on ambulation at home which was the same as when seen on 03/26/13 but worse when compared to 01/2013. For her diagnosis of DANCE HISTORIAN she was started on 30 mg of Prednisone for 2 months when seen in January 2013. At that time she was tapered down to 25 mg for a month followed by 20 mg for a month to be followed by 15 mg starting 03/17/13. When seen in office last on 05/01/13 due to her recurrent admissions for SOB supplemented in conjunction with worsened diffusion on PFT her Prednisone dose was increasedback to 30 mg q day. However, when seen on follow up on 06/20/13 she was on 20 mg which was than continued as such. Prior to be seen last talking to her significant other multiple times over the phone through out her recurrent admission at OSH there were few possibilities popped up as possible explanation for her recurrent admissions for SOB i.e. Recurrent aspiration, role of pain/anxiety medications, and impaired immunity leading to recurrent infections. We did review the records of recurrent hospital stays at [facility], details of imaging done at OSH under imaging section below. Since seen the last time she ended up in hospital again, but this time due to back pain with inability to move around. She did have extensive testings done including MRI of her spine and was discharged to a rehab facility. She was in hospital for about a week and in rehab for about 3 weeks. Today: When seen today she complains similar SOB as compared to when seen last in June (SOB on minimal exertion). She is using 2L of oxygen at rest and on exertion with her O2 sat going down to 85% on ambulation and mid 90s at rest. She is not increasing her oxygen to 4L on ambulation in contrast to whenseen last. She is continuing to cough a bit on daily basis with white/clear phlegm. She denies any fever/chills or URI symptoms. She still does have a bilateral chest pain/soreness which has improvedsince when seen last. She denies any PND or orthopnea. She is using Advair and Spiriva on daily basis with Duoneb scheduled about 2/day since discharge from the hospital. She is also on Prednisone 20mg q day. She is not on Bactrim prophylaxis since last hospital admission prior to that she has always been on it. She is on long acting Morphine BID since recent discharge from the hospital in conjunction with Vicodin about 2/day. She is not using any Ativan for anxiety anymore. She was seen by Carol today for recurrent infections. At this time await official note while I did note that serum Immunoglobulins were ordered along with sputum for AFB. As per her significant she has been having some memory problems and an overall slow mentation. She is not having any hallucination. She has been burping a lot michael at night time along with burning chest pain which is new since last seen. She is following up with her PCP who is managing her BGM. She has been sleeping well overnight. She has history of anxiety which has been stable on her medications. She also does have a history of GERD which is being helped by the PPi QD. She was seen in office as a follow up today. Past Medical History: Past Medical History Diagnosis Date ??? COPD (chronic obstructive pulmonary disease) ??? Anxiety ??? Depression ??? Hypertension ??? Arthritis ??? GERD (gastroesophageal reflux disease) ??? Hepatitis C Past Surgical History: Past Surgical History Procedure Date ??? Clavicle surgery broken left clavicle ??? Nose surgery broken nose ??? 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 morphine (MSIR) 15 mg tablet ??? predniSONE (DELTASONE) 20 mg tablet Take 20 mg by mouth. ??? furosemide (LASIX) 20 mg tablet ??? [DISCONTINUED] predniSONE (DELTASONE) 10 mg tablet Take 20 mg by mouth daily. ??? [DISCONTINUED] levofloxacin (LEVAQUIN) 750 mg tablet Take 750 mg by mouth daily. ??? [DISCONTINUED] sulfamethoxazole-trimethoprim (BACTRIM DS) 800-160 mg per tablet Take 1 tablet by mouth every other day. 30 tablet 3 ??? [DISCONTINUED] doxycycline (VIBRA-TABS) 100 mg tablet Take 1 tablet by mouth 2 times daily. 14 tablet 0 ??? [DISCONTINUED] predniSONE (DELTASONE) 20 mg tablet Take 1 tablet by mouth daily. 30 tablet 2 ??? [DISCONTINUED] cefPODoxime (VANTIN) 200 mg tablet Take 1 tablet by mouth 2 times daily. 14 tablet 0 ??? hydroCODone-acetaminophen (VICODIN) 5-500 mg per tablet [...] 2 times daily. 1 Inhaler 0 ??? levalbuterol (XOPENEX) 0.63 mg/3 mL nebulizer solution Take 3 mLs by nebulization every 4 hoursas needed for Wheezing. 3 mL 0 ??? omeprazole (PRILOSEC) 20 mg capsule Take 1 capsule by mouth daily. 90 capsule 3 ??? PARoxetine (PAXIL) 40 mg tablet Take 1 tablet by mouth every morning. 90 tablet 3 ??? tiotropium (SPIRIVA WITH HANDIHALER) 18 mcg inhalation capsule Inhale 1 capsule into the lungs daily. 90 capsule 0 ??? [DISCONTINUED] simvastatin (ZOCOR) 20 mg tablet Take 1 tablet by mouth nightly. 90 tablet 3 ??? [DISCONTINUED] nystatin (MYCOSTATIN) 100,000 unit/mL suspension Take 5 mLs by mouth 3 times daily as needed. 60 mL 0 ??? ipratropium-albuterol (DUONEB) 0.5 mg-3 mg(2.5 mg base)/3 mL nebulizer solution Take 3 mLs by nebulization every 4 hours as needed. ??? ERGOCALCIFEROL, VITAMIN D2, (VITAMIN D ORAL) ??? ibuprofen (ADVIL;MOTRIN) 800 mg tablet 800 MG = 1 Tablet(s), PO, Three times daily ??? [DISCONTINUED] DICLOFENAC SODIUM/MISOPROSTOL (ARTHROTEC 50 ORAL) Last reviewed on 09/12/2013 1:45 PM by Nette Mccullough LPN Adverse Drug Reactions: Allergies Allergen Reactions ??? [...] NIGHTMARES, CIS - NIGHTMARES, CIS - NIGHTMARES Physical Examination: BP 132/77 Pulse 97 Resp 22 Ht 157.5 cm (5' 2.01) Wt 92.08 kg (203 lb) BMI 37.12 kg/m2 SpO2 99% GENERAL APPEARANCE: sitting in chair comfortably, able to talk in full sentences HEENT: NC and AT, ear/nose symmetrical and non tender, EOM wnl NECK: supple, no cervical lymphadenopathy CHEST: CTA BL (did have lower 1/3 crackles on last visit but none today) HEART: S1 S2, RRR, no m/r/g, trace edema BL LE GI/ABDOMEN: soft, non tender, BS+, no inguinal adenopathy MUSCULO: normal ROM, no joint swelling SKIN: skin rah over the fore arms (mentioned itching/scratching induced), otherwise warm and dry IMAGING: XMBS 06/20/13: Delayed triggering of swallowing but no aspiration or penetration seen. Please see the separate speech language pathologist report for further details. CXR OSH 06/10/13: RLL infiltration. CXR 06/07/13 OSH (my interpretation): Persistent opacity peripherally over the right lower lung zone with associated basal atelectasis. CT CHEST OSH 06/03/13: Acute fracture of right 7 th. rib with associated effusion and atelectasis. Old healed anterolateral fracture of right 8 th. rib and a non united fracture of post aspect of same. Extensive COPD and parenchymal scarring. CXR 05/01/13: Resolution of previously noted right mid to lower lung airspace consolidation. No acute disease. No pleural effusions. No congestive heart failure. Soft tissue and bony structures are stable. CXR 02/24/13: Increased opacity in the right lower lung consistent with new pneumonia versus alveolar hemorrhage. CT CHEST 01/15/13: Resolved interstitial thickening, with no evidence of in interstitial process/fibrosing lung disorder. No new or progressive pulmonary pathology. Centrilobular emphysema. CXR 12/04/12: Underlying chronic reticular changes of the lungs. A mild increase in opacity is seen in the periphery of the right mid lung. This is primarily concerning for a new pneumonic infiltrate versus focus of alveolar hemorrhage. Suggest followup chest x-rays to resolution. Left lung remains clear. Stable cardiomediastinal silhouette. No pleural effusion. CT CHEST 11/15/12: Comparison 05/14/10: 1. Underlying upper lobe predominant centrilobular emphysema with interval development of irregular interstitial septal thickening with upper lung zone predominance and developing peripheral honeycombing/fibrotic changes most pronounced in the left upper lobe superior segment left lower lobe. 2. Accompanying patchy ground-glass opacities throughout both lungs, as above. Differential considerations for ground-glass opacities would include hemorrhage is well as other inflammatory infectious alveolitis/process. Swallow eval at [facility] 06/20/13: Dx - Minimal Oropharyngeal Dysphagia primarily with solids primarily due to poor dentition; dysphagia not judged significant enough at this time to explain hx of multiple PNA's . Aspiration / Penetration Scale Score (Kiki Bowers et al. Dysphagia, 1995). 1 = no material enters the airway. Incidental finding: weak / low tone velum which occasionally results in nasal regurgitation as per pt report No Speech Pathology intervention recommended at this time. Pt advised to follow standard aspirationprecautions: sit upright for all PO; small single bites and sips; good oral care. Pt. in agreement with plan of treatment Swallow eval at OSH 04/04/13: Oral stage - poor bolus formation Pharyngeal stage - post spillage, multiple swallows throat clearing, effortful swallow trying to coordinate breathing with swallow. A/P - Can tolerate NDD3 texture (dysphagia advanced) with extra sauces, alternating liquids and solids while sitting at 90 degree angle. TTE 04/12/13: LVEF >70%. LA mildly dilated. Normal RV size and function. SPIROMETRY: 01/15/13: FEV1/FVC 58, FVC 2.76 (95%), FEV1 1.6 (72%), TLC 4.33 (96%), RV 1.22 (76%), RV/TLC 28 (79%), Dsb 11.93 (67%), BD borderline positive On walking her to and from [place] her O2 saturation went down to 89% at the minimum. She was evidently subjectively SOB with her oxygenation mostly in 90- 91% range. 03/26/13: On walking her to and from [place] her O2 saturation went down to 88% at the minimum. She was evidently subjectively SOB with her oxygenation mostly around 89-90% range. On rest at RA she was around 94%. 05/01/13: FEV1/FVC 57, FVC 2.79 (97%), FEV1 1.59 (72%), Dsb 10.12 (50%) After walking 300 ft her O2 sat was 88% on 2L, another 100 ft on 3L her O2 sat was 86%, followed by4L with O2 sat of 95%. LABS: IgG 647 (09/12/13) IgG 550 (06/14/13) IgG 618 (11/30/12) Assessment and Plan: 1. DANCE HISTORIAN: patient seen and examined with pertinent objective and subjective data as above She has been for the most part seemingly stable from breathing perspective since last seen along with improved lung exam. At this time we plan on going down on her Prednisone dsoe to 15 mg from 20 mg q day. She is to remain off Bactrim while should continue taking Олег/Vit D and PPi. She will need PFT to be done prior to next visit (was ordered but could not be done today). She is to follow aspiration precautions and minimize use of sedative medications. She was seen by ID earlier today and wait input for recurrent infectious episodes with somewhat low IgG levels. She has been a complex patient and for this will also be seen by Palliatvive care later today to help manage her with her chronic pain issuesalong with recurrent infections and hospitalizations. 2. COPD/Emphysema: mild obstruction with moderte impairment in diffusion per last PFT. Since she has emphysema and DANCE HISTORIAN it makes her spirometry looks better than one would expect in spite of relative bad diffusion. Recommend to continue current therapy i.e. Advair, Spiriva, and Duoneb prn (for now using 2/day). PFT and ambulatory pulse ox prior to next visit. Hypoxemia as discussed below. 3. ?VIVIENNE: Overnight pulse oxymetry done by PCP showed in past showed dipping of oxygen saturation <90% as per patient. She does snore at night,does have a thick neck, is fatigued during day, and does have HTN. She did have a sleep study per patient since seen the last time. I do not have a reportfor sleep study available yet. She has been told to likely benefit from NPPV. She is to follow up for further recommendation on 09/25/13 with her utility repairer Dr Jackson for this reason. 4. Hypoxemia: likely secondary to #1 and #2. TTE done at OSH and did not show any evidence of pHTN.She was encouraged to increase oxygen to 4L on exertion as she has been until seen the last time. As on todays visit she mentioned not gong up on her oxygen with her O2 sat going to mid 80s on exertion. Goal oxygen saturation >88% at all times. 5. Vaccination: last flu shot was in Dec 2012. She mentioned she had a pneumonia shot once before.She will be due for another pneumonia shot at age 66 yrs. She was discussed in detail with Dr Munoz who agrees with the plan. She was encouraged to call with any questions or concerns as they arise. We will follow her up in 6 weeks. She is to be followed up with Dr Mattson along with Dr De Leon (who knows her well) in fellows clinic. Pulmonary/CCM Attending Case discussed with Dr. Chapman in clinic. I agree with his documented findings and plan of care, which we formulated together at the time of the visit. I did not personally evaluate the patient. VEDA MUNOZ MD documented in this encounter Miscellaneous Notes * Addendum Note - Veda Munoz MD - 09/13/2013 9:19 AM EDTAddended by: VEDA MUNOZ on: 09/13/2013 09:19 AM Modules accepted: Level of Service documented in this encounter Plan of Treatment Not on file documented as of this encounter Visit Diagnoses Diagnosis Cryptogenic organizing pneumonia- Primary Other specified alveolar and parietoalveolar pneumonopathies COPD (chronic obstructive pulmonary disease) Chronic airway obstruction, not elsewhere classified VIVIENNE (obstructive sleep apnea) Obstructive sleep apnea (adult) (pediatric) Hypoxemia documented in this encounter Care Teams Make Up Girl Relationship Specialty Start Date End Date Nayana Blankenship MD [address] [place] [address] PCP - General 03/09/10 documented as of this encounter
--- OUTSIDE RECORDS SUMMARY | 2023-12-15 06:16 | XMS_ITS | Encounter Summary ---
Author Organization [facility] Address [facility] [place] [address] Care Team Providers Care Snowmobile Mechanic Name Role Phone Nayana Blankenship MD Primary Care Provider [phone] Reason for Referral * Speech Therapy (Routine) - Closed Specialty Diagnoses / Procedures Referred By Adarsh boo Referred To Contact Speech Pathology / Speech Therapy Diagnoses Aspiration pneumonia Andrzej Chapman MD [facility] [place] [address] [facility] [place] [place] [address] Referral ID Status Reason Start Date Expiration Date V isits Requested Visits Authorized [id number] Closed Evaluate and Treat 06/14/2013 12/11/2013 1 1 Encounter Details Date Type Department Care Team (Late st Contact Info) Description 06/14/2013 [place] [address] [facility] [place] [address] Aspiration pneumonia (Primary Dx) Social History Tobacco Use Types [...] as of this encounter Plan of Treatment Scheduled Referrals Name Type Priority Associated Diagnoses Orde r Schedule Referral to Speech Therapy Outpatient Referral Routine Aspiration pneumonia Ordered: 06/14/2013 documented as of this encounter Results * XR Fluoro modified Barium swallow (06/20/2013 1:30 PM EST) Anatomical Region Laterality Modality N/A Radiographic Nan ging 06/20/2013 1:30 PM EST Narrative 06/20/2013 4:56 PM EST Examination MODIFIED BARIUM SWALLOW Clinical History recurrent aspiration events Comparison None. Technique In the lateral position under continuous fluoroscopy the patient was administered various consistencies of barium. The speech pathologist was present throughout the procedure. Fluoroscopy time: ??1.23 minutes. Findings No aspiration or penetration was seen with any of the barium consistencies. ?? There was a delayed swallow trigger to the level of the vallecula. ??Residuals were present within the vallecular which were created with subsequent dry swallows. ??There is appropriate hyoid elevation. Mild nasopharyngeal reflux was observed within thin liquid. ?? A prominent disc osteophyte complex is present at the C4-C5 level which impresses upon the posterior esophagus causing mild narrowing but not obstruction. ?? Impression Delayed triggering of swallowing but no aspiration or penetration seen. ??Please see the separate speech language pathologist report for further details. Film and interpretation reviewed by the attending Procedure Note Yvonne Mancilla MD - 06/20/2013 Examination MODIFIED BARIUM SWALLOW Clinical History recurrent aspiration events Comparison None. Technique In the lateral position under continuous fluoroscopy the patient was administered various consistencies of barium. The speech pathologist was present throughout the procedure. Fluoroscopy time: 1.23 minutes. Findings No aspiration or penetration was seen with any of the bariumconsistencies. There was a delayed swallow trigger to the level of the vallecula.Residuals were present within the vallecular which were created with subsequent dry swallows. There is appropriate hyoid elevation. Mild nasopharyngealreflux was observed within thin liquid. A prominent disc osteophyte complex is present at the C4-C5 level which impresses upon the posterior esophagus causing mild narrowing but not obstruction. Impression Delayed triggering of swallowing but no aspiration or penetration seen.Please see the separate speech language pathologist report for further details. Film and interpretation reviewed by the attending Authorizing Provider Result Ac De Leon MD IMG FLUORO ORDERABLE S documented in this encounter Visit Diagnoses Diagnosis Aspiration pneumonia- Primary Pneumonitis due to inhalation of food or vomitus Aspiration pneumonia Pneumonitis due to inhalation of food or vomitus documented in this encounter Care Teams Snowmobile Mechanic Relationship Specialty Start Date End Date Nayana Blankenship MD [address] [place] [address] PCP - General 03/09/10 documented as of this encounter
--- OUTSIDE RECORDS SUMMARY | 2023-12-15 06:16 | XMS_ITS | Encounter Summary ---
Author Organization [facility] Address [facility] [place] [address] Care Team Providers Care Assembler Show Motor Name Role Phone Nayana Blankenship MD Primary Care Provider [phone] Encounter Details Date Type Department Care Team (Late st Contact Info) Description 04/04/2013 [place] [id number] Andrzej Chapman MD [facility] [place] [address] Social History Tobacco Use Types Packs/Day Years [...] Telephone Encounter - Andrzej Chapman MD - 04/04/2013 9:48 AM EST Ms Caballero ended up in [facility] with LLL pneumonia this time around 03/30/13. She was also noted to be hypoxic with a luekocytosis (~25k). I have spoken to his caregiver and his physician at [facility] couple of times over the last few days. She was at [facility] about a month ago for RLL pneumonia as well. Talking to her caregiver patient seems to cough while eating at times and also eats sometimes laying down in bed. I am very suspicious of her having aspiration when she eats. When I brought up this thought the caregiver did mention that the patient herself has also expressed that the food seems to be be going in into her lungs. I have requested Dr Abilio guillory [facility] to arrange for swallow evaluation before she is discharged home. She at this time is doing well with likely plan of her being discharged home today. documented in this encounter Plan of Treatment Not on file documented as of this encounter Visit Diagnoses Not on filedocumented in this encounter Care Teams Assembler Show Motor Relationship Specialty Start Date End Date Nayana Blankenship MD [address] [place] [address] PCP - General 03/09/10 documented as of this encounter
--- OUTSIDE RECORDS SUMMARY | 2023-12-15 06:16 | XMS_ITS | Encounter Summary ---
Author Organization [facility] Address [facility] [place] [address] Care Team Providers Care Educational Fundraising Director Name Role Phone Nayana Newberry MD Primary Care Provider [phone] Reason for Visit * Reason Comments Follow-up Encounter Details Date Type Department Care Team (Late st Contact Info) Description 02/28/2014 2:15 PM EST [place] [address] Srinivasan Salas MD [facility] [place] [address] COPD (chronic obstructive pulmonary disease); Cryptogenic organizing pneumonia Discharge Disposition: Home Social History Tobacco Use [...] Sign Reading Time Taken Comments Blood Pressure 151/75 02/28/2014 2:29 PM EST Pulse 104 02/28/2014 2:29 PM EST Temperature - - Respiratory Rate 22 02/28/2014 2:29 PM EST Oxygen Saturation 94% 02/28/2014 2:29 PM EST Inhaled Oxygen Concentration - - Weight 91.2 kg (201 lb) 02/28/2014 2:29 PM EST Height 153.9 cm (5' 0.6) 02/28/2014 2:29 PM EST Body Mass Index 38.48 02/28/2014 2:29 PM EST documented in this encounter Progress Notes * Odette Quevedo MD - 03/03/2014 12:29 PM EST Patient interviewed and examined; data and radiographic studies reviewed. My findings agree with those outlined by Dr. Salas, whose note reflects our jointly formulated plan of care. * Srinivasan Salas - 02/28/2014 2:54 PM EST Date of Service: 02/28/2014 Primary Care Physician: NAYANA NEWBERRY MD PULMONARY MEDICINE FOLLOW-UP NOTE: CC: follow up VARNISH FILTERER HPI: Kyleigh Caballero is a 64 y.o. 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 Had COPD exacerbation in beginning of January. On steroid taper now 15mg daily. Feels well and breathing difficulty at baseline. She is currently using 4L of oxygen at rest and on exertion with her O2 sat at 100%. Desat to low 90s with exertion. Planning to go back to 2L at all times. Cough on a daily basis with white/clear phlegm at present (clearing up). She denies any PND or orthopnea. She is using Advair and Spiriva on daily basis with Duoneb scheduled about 2/day. She is not on Bactrim prophylaxis. Review of Systems: CONSTITUTIONAL: Has subjective chills, fatigue. ENT: Nasal Congestion: None GI: No dysphagia, acid reflux/ hearburn PULM: Positive cough with sputum production, SOB and MEZA. CV: No chest pain /pressure, palpitations, lightheadedness/dizziness. Interval Medical History: Past Medical History Past Medical History Diagnosis Date ??? COPD (chronic obstructive pulmonary disease) ??? Anxiety ??? Depression ??? Hypertension ??? Arthritis ??? GERD (gastroesophageal reflux disease) ??? Hepatitis C Medications: Current Outpatient Prescriptions on File Prior [...] by mouth every 6 hours asneeded. ??? amitriptyline (ELAVIL) 75 mg tablet Take [...] ERGOCALCIFEROL, VITAMIN D2, (VITAMIN D ORAL) ??? [DISCONTINUED] levofloxacin (LEVAQUIN) 750 mg Tablet Take 750 mg by mouth daily. ??? diaZEPam (VALIUM) 5 mg tablet Take 5 mg by mouth 2 times daily. ??? ibuprofen (ADVIL;MOTRIN) 800 mg tablet 800 MG = 1 Tablet(s), PO, Three times daily No current facility-administered medications on file prior to visit. Allergies: Alendronate sodium; Atenolol; Codeine; Lisinopril; and Trazodone PE: VS: Filed Vitals: 02/28/14 1429 BP: 151/75 Pulse: 104 Resp: 22 Height: 153.9 cm (5' 0.6) Weight: 91.173 kg (201 lb) SpO2: 94% GENERAL APPEARANCE: sitting in chair comfortably, able to talk in full sentences HEENT: NC and AT, ear/nose symmetrical and non tender, EOM wnl NECK: supple, no cervical lymphadenopathy CHEST: Coarse b/l. Some exp wheezing in b/l upper lung field. No crackles HEART: S1 S2, RRR, no m/r/g, +1 edema BL LE GI/ABDOMEN: soft, non tender, BS+, no inguinal adenopathy MUSCULO: normal ROM, no joint swelling SKIN: warm and dry Pulmonary Function Tests: 01/15/13: FEV1/FVC 58, FVC 2.76 (95%), FEV1 [...] mostly around 89-90% range. On rest at she was around 94%. 05/01/13: FEV1/FVC 57, FVC 2.79 (97%), FEV1 1.59 (72%), Dsb 10.12 (50%) After walking 300 ft her O2 sat was 88% on 2L, another 100 ft on 3L her O2 sat was 86%, followed by4L with O2 sat of 95%. 12/11/13 The SPO2 on room air at rest was 90%. After walking 20 feet on room air, the SPO2 was 87%. After walking 300 feet on 4 L per minute nasal cannula oxygen, the SPO2 was 91%. 02/28/14 FEV1/FVC 59, FVC 2.58 (92%), FEV1 1.51 (70%), Dsb 11.19 (56%) SpO2 RA resting 94%, after 50ft 8%, 500ft on 4L 93% - improved SOB with O2 Radiology (images below were personally reviewed): CXR 12/10/13 Interval improvement in bilateral patchy opacities. However continues to have scattered hazy opacities throughout both lungs which may result represent residual disease versus infectious change. CXR OSH 06/10/13: RLL infiltration. CXR 06/07/13 OSH (my interpretation): Persistent opacity peripherally over the right lower lung zone with associated basal atelectasis. CT CHEST OSH 07/01/13: Acute fracture of right 7 th. rib with associated effusion and atelectasis. Old healed anterolateral fracture of right 8 th. rib and a non united fracture of post aspect of same. Extensive COPD and parenchymal scarring. CXR 05/01/13: Resolution of previously noted right mid to lower lung airspace consolidation. No acute disease. Nopleural effusions. CXR 02/24/13: Increased opacity in the right [...] predominant centrilobular emphysema with interval development of irregularinterstitial septal thickening with upper lung zone predominance and developing peripheral honeycombing/fibrotic changes most pronounced in the left upper lobe superior segment left lower lobe. 2. Accompanying patchy ground-glass opacities throughout both lungs, as above. Differential considerations for ground-glass opacities would include hemorrhage is well as other inflammatory infectiousalveolitis/process. TTE 04/12/13: LVEF >70%. LA mildly dilated. Normal RV size and function. Assessment: Kyleigh Caballero is a 64 y.o. female with a history of COPD, former smoker, strep milleri pneumonia in 02/2011 s/p decortication, PNA in 06/2012 s/p a fall, anxiety, GERD, HepC seen in pulmonary clinicfor follow-up of VARNISH FILTERER and COPD. Currently recovering from ?brocnhitis vs PNA, vs VARNISH FILTERER. On steroid taper. Recommendations VARNISH FILTERER: - will initiate slow steroid taper --> 15mg --> 12.5 mg for 2 weeks --> 10mg for 2 weeks --> 7.5mg until next visit COPD/Emphysema: - mild obstruction with moderate impairment in diffusion per last PFT (slight improvement today) - Recommend to continue current therapy i.e. Advair, Spiriva, and Duoneb prn (for now using 2/day) Hypoxemia: - TTE done at OSH and did not show any evidence of pHTN. - She was encouraged to increase oxygen to 4L on exertion as she has been until seen the last time.Can decrease to 2L at rest if no SOB and desat. - Goal oxygen saturation >88% at all times. Vaccination: - last flu shot was in Jan 2014. - She mentioned she had a pneumonia shot once before. She will be due for another pneumonia shot atage 66 yrs. Srinivasan Salas MD This case was supervised by Dr. Quevedo who saw the patient and participated in the formulation of the above plan. documented in this encounter Miscellaneous Notes * Addendum Note - Odette Quevedo MD - 03/03/2014 12:30 PM ESTAddended by: ODETTE QUEVEDO on: 03/03/2014 12:30 PM Modules accepted: Level of Service documented in this encounter Plan of Treatment Not on file documented as of this encounter Visit Diagnoses Diagnosis COPD (chronic obstructive pulmonary disease) Chronic airway obstruction, not elsewhere classified Cryptogenic organizing pneumonia Other specified alveolar and parietoalveolar pneumonopathies documented in this encounter Care Teams Educational Fundraising Director Relationship Specialty Start Date End Date Nayana Newberry MD [address] [address] PCP - General 03/09/10 documented as of this encounter
--- OUTSIDE RECORDS SUMMARY | 2023-12-15 06:16 | XMS_ITS | Encounter Summary ---
Author Organization [facility] Address [facility] [place] [address] Care Team Providers Care Cushion Mat Maker Name Role Phone Nayana Newberry MD Primary Care Provider [phone] Encounter Details Date Type Department Care Team (Late st Contact Info) Description 02/04/2014 3:45 PM EDT Follow-[place] [address] Srinivasan Salas MD [facility] [place] [address] Cryptogenic organizing pneumonia; SOB (shortness of breath) Discharge Disposition: Home Social History Tobacco Use [...] Taken Comments Blood Pressure - - Pulse 93 02/04/2014 3:56 PM EDT Temperature - - Respiratory Rate 22 02/04/2014 3:56 PM EDT Oxygen Saturation 100% 02/04/2014 3:56 PM EDT Inhaled Oxygen Concentration - - Weight 91.6 kg (202 lb) 02/04/2014 3:56 PM EDT Height 157.5 cm (5' 2) 02/04/2014 3:56 PM EDT Body Mass Index 36.95 02/04/2014 3:56 PM EDT documented in this encounter Patient Instructions * Patient Instructions* Srinivasan Salas - 02/04/2014 4:47 PM EDT Restart Bactrim for now Continue Prednisone at 20mg daily for two weeks, then go to 15mg daily for 2 weeks See us again in one month. We will get the medical records May need to repeat a CT scan in one month. documented in this encounter Progress Notes * Srinivasan Salas - 02/14/2014 3:14 PM EDT Received records from [facility]. It seems Pt did indeed have a COPD exacerbation and less likely worsening of HOSPITAL PRODUCT SPECIALIST. (No CXR changes and in fact the RUL infiltrate resolved (based on radiology read). Apparently she had O2 Sat of 99% on 4LNC (baseline) at presentation and dyspnea as well as increased cough were the main symptoms. No indication of pneumonia. * Hazel Lynne MD - 02/05/2014 9:07 AM EDT ATTENDING NOTE: Patient seen and examined with Dr. Salas. I have reviewed the above note and agree with the history, physical examination, assessment and recommendations as documented. HAZEL LYNNE MD * Srinivasan Salas - 02/04/2014 9:38 AM EDT Date of Service: 02/04/2014 Primary Care Physician: NAYANA NEWBERRY MD PULMONARY MEDICINE FOLLOW-UP NOTE: CC: follow up HOSPITAL PRODUCT SPECIALIST HPI: Kyleigh Caballero is a 64 y.o. female with a history of COPD, former smoker, strep milleri pneumonia in 02/2011 s/p decortication, PNA in 06/2012 s/p a fall, anxiety, GERD, HepC seen in pulmonary clinic for follow-up of HOSPITAL PRODUCT SPECIALIST and COPD. The patient reports that she has had a dificult time with her breathing over the past 2 weeks. She was treated for presumed Chronic bronchitis at [facility]. Currently on levaquin day 02/28. 9 days ago started on Prednisone 80mg daily, currently on 30mg. Records from OSH not available yet. Has had yellow phlegm and difficulty breathing which prompted her to go to [facility]. Still has subjective fevers, some chills. No night sweats. Has some weight gain since on Prednisone. Currently improving again. She is currently using 4L of oxygen [...] lightheadedness/dizziness. Interval Medical History: Past Medical History Diagnosis Date ??? COPD (chronic obstructive pulmonary disease) ??? Anxiety ??? Depression ??? Hypertension ??? Arthritis ??? GERD (gastroesophageal reflux disease) ??? Hepatitis C Medications: Current Outpatient Prescriptions on File Prior to Visit Medication Sig Dispense Refill ??? montelukast (SINGULAIR) 10 mg Tablet ??? DICLOFENAC SODIUM (VOLTAREN TOP) ??? diclofenac (VOLTAREN) 75 mg Tablet, Delayed Release (E.C.) ??? morphine (MSIR) 15 mg tablet ??? morphine (MS CONTIN) 15 mg 12 hr tablet Take 15 mg by mouth 2 times daily. ??? metFORMIN (GLUCOPHAGE) 1,000 mg tablet Take [...] = 1 Tablet(s), PO, Three times daily Allergies: Alendronate sodium; Atenolol; Codeine; Lisinopril; and Trazodone PE: VS: Filed Vitals: 02/04/14 1556 Pulse: 93 Resp: 22 Height: 157.5 cm (5' 2) Weight: 91.627 kg (202 lb) SpO2: 100% GENERAL APPEARANCE: sitting in chair comfortably, able [...] SKIN: warm and dry Pulmonary Function Tests: 12/11/13 The SPO2 on room air at rest was 90%. After walking 20 feet on room air, the SPO2 was 87%. After walking 300 feet on 4 L per minute nasal cannula oxygen, the SPO2 was 91%. 01/15/13: FEV1/FVC 58, FVC 2.76 (95%), FEV1 [...] followed by4L with O2 sat of 95%. Radiology (images below were personally reviewed): CXR [...] HepC seen in pulmonary clinicfor follow-up of HOSPITAL PRODUCT SPECIALIST and COPD. Currently recovering from ?brocnhitis vs PNA, vs HOSPITAL PRODUCT SPECIALIST. On steroid taper and finishing up levaquin. Recommendations HOSPITAL PRODUCT SPECIALIST: - Unclear if this episode represents HOSPITAL PRODUCT SPECIALIST, COPD, bronchitis - will obtain records from [facility] - Continue prednisone 20mg daily for 2 weeks, then go to 15mg daily until follow up in 1 month - will get CT and PFTs in 4 weeks COPD/Emphysema: - mild obstruction with moderate impairment in diffusion per last PFT - Recommend to continue current therapy i.e. Advair, Spiriva, and Duoneb prn (for now using 2/day) - ambulatory pulse ox prior to next visit ?VIVIENNE: - Overnight pulse oxymetry done by PCP showed in past showed dipping of oxygen saturation <90% as per patient. She does snore at night,does have a thick neck, is fatigued during day, and does haveHTN. She did have a sleep study per patient since seen the last time. I do not have a report for sleep study available yet. She has been told to likely benefit from NPPV. She is to follow up for further recommendation on 09/25/13 with her business applications specialist Dr Jackson for this reason. Hypoxemia: - likely secondary to #1 and #2. - TTE done at OSH and did not show any evidence of pHTN. - She was encouraged to increase oxygen to 4L on exertion as she has been until seen the last time - Goal oxygen saturation >88% at all times. Vaccination: - last flu shot was in Jan 2014. - She mentioned she had a pneumonia shot once before. She will be due for another pneumonia shot atage 66 yrs. Srinivasan Salas MD This case was supervised by Dr. Lynne who saw the patient and participated in the formulation of the above plan. documented in this encounter Plan of Treatment Not on file documented as of this encounter Results * Pulmonary Function Testing (02/28/2014 11:59 PM EST) Narrative Wilman Jones Jr., MD - 02/28/2014 11:59 PM EST Wilman Jones Jr., MD ? 02/28/2014 11:59 PM Pulmonary Function Testing Spirometry reveals a mild airflow obstruction. ??Diffusing capacity is moderately reduced. ??Oxygen saturation is normal at rest. ??There is ambulatory desaturation which is corrected by use of 4L O2. Wilman Jones MD Pulmonary Medicine Hazel Lynne MD PFT ORDERABLES documented in this encounter Visit Diagnoses Diagnosis Cryptogenic organizing pneumonia Other specified alveolar and parietoalveolar pneumonopathies SOB (shortness of breath) Shortness of breath Cryptogenic organizing pneumonia Other specified alveolar and parietoalveolar pneumonopathies SOB (shortness of breath) Shortness of breath documented in this encounter Care Teams Cushion Mat Maker Relationship Specialty Start Date End Date Nayana Newberry MD [address] [place] [address] PCP - General 03/09/10 documented as of this encounter
--- OUTSIDE RECORDS SUMMARY | 2023-12-15 06:16 | XMS_ITS | Encounter Summary ---
Author Organization [facility] Address [facility] [place] [address] Care Team Providers Care Floor Plan Adjuster Name Role Phone Nayana Blankenship MD Primary Care Provider [phone] Encounter Details Date Type Department Care Team (Latest Contact Info) Description 02/28/2014 1:53 PM EST - 02/28/2014 11:59 PM EST Hospital En[place] [address] Cryptogenic organizing pneumonia; SOB (shortness of breath) Social History Tobacco Use Types Packs/Day Years [...] Sig Dispensed Refills Start Date End Date multivitamin (THERAGRAN) Tablet Take 1 tablet by [...] 1 Tablet(s), PO, Three times daily 05/14/2010 pramipexole (MIRAPEX) 0.125 mg Tablet 01/17/2014 11/27/2018 [...] as of this encounter Procedure Notes * Wilman Jones Jr., MD - 02/28/2014 11:58 PM ESTAssociated Order(s): PULMONARY FUNCTION TEST Pulmonary Function Testing Spirometry reveals a mild airflow obstruction. Diffusing capacity is moderately reduced. Oxygen saturation is normal at rest. There is ambulatory desaturation which is corrected by use of 4L O2. Wilman Jones MD Pulmonary Medicine documented in this encounter Plan of Treatment Not on file documented as of this encounter Procedures Procedure Name Priority Date/Time Associated Diagnosis Comments COMMON PULMONARY FUNCTION TEST Routine 02/28/2014 11:59 PM EST Cryptogenic organizing pneumonia SOB (shortness of breath) documented in this [...] O2. Wilman Jones MD Pulmonary Medicine Hazel Fink MD PFT ORDERABLES documented in this encounter Visit Diagnoses Diagnosis Cryptogenic organizing pneumonia Other specified alveolar and parietoalveolar pneumonopathies SOB (shortness of breath) Shortness of breath documented in this encounter Care Teams Floor Plan Adjuster Relationship Specialty Start Date End Date Nayana Blankenship MD [address] [place] [address] PCP - General 03/09/10 documented as of this encounter
--- OUTSIDE RECORDS SUMMARY | 2023-12-15 06:16 | XMS_ITS | Encounter Summary ---
Author Organization [facility] Address [facility] [place] [address] Care Team Providers Care Content Administrator Name Role Phone Nayana Blankenship MD Primary Care Provider [phone] Encounter Details Date Type Department Care Team (Late st Contact Info) Description 06/06/2013 Orders [place] [address] Boaz Rowell MD [facility] [place] [address] Social History Tobacco Use Types Packs/Day Years [...] Date /Time Film Library- Storage only DX Shoulder Imaging Routine 06/06/2013 1:15 AM EST documented as of this encounter Visit Diagnoses Not on filedocumented in this encounter Care Teams Content Administrator Relationship Specialty Start Date End Date Nayana Blankenship MD [address] [place], [place] [phone] PCP - General 03/09/10 documented as of this encounter
--- OUTSIDE RECORDS SUMMARY | 2023-12-15 06:16 | XMS_ITS | Encounter Summary ---
Author Organization [facility] Address [facility] [place] [address] Care Team Providers Care Orthopedic Shoe Maker Name Role Phone Nayana Blankenship MD Primary Care Provider [phone] Encounter Details Date Type Department Care Team (Late st Contact Info) Description 08/27/2013 Orders [place] [address] Andrzej Chapman MD [facility] [place] [address] Social History Tobacco Use Types Packs/Day Years [...] on filedocumented in this encounter Care Teams Orthopedic Shoe Maker Relationship Specialty Start Date End Date Nayana Blankenship MD [address] [place], [place] [id number] PCP - General 03/09/10 documented as of this encounter
--- OUTSIDE RECORDS SUMMARY | 2023-12-15 06:16 | XMS_ITS | Encounter Summary ---
Author Organization [facility] Address [facility] [place] [address] Care Team Providers Care Palliative Care Specialist Name Role Phone Nayana Blankenship MD Primary Care Provider [phone] Encounter Details Date Type Department Care Team (Late st Contact Info) Description 03/30/2013 [place] [address] Andreas Andrews MD [facility] [place] [address] Social History Tobacco Use Types Packs/Day Years [...] Library- Storage only DX Chest Imaging Routine 03/30/2013 4:06 AM EST documented as of this encounter Visit Diagnoses Not on filedocumented in this encounter Care Teams Palliative Care Specialist Relationship Specialty Start Date End Date Nayana Blankenship MD [address] [place], [place] [phone] PCP - General 03/09/10 documented as of this encounter
--- OUTSIDE RECORDS SUMMARY | 2023-12-15 06:16 | XMS_ITS | Encounter Summary ---
Author Organization [facility] Address [facility] [place] [address] Care Team Providers Care Stave And Bolt Equalizer Name Role Phone Nayana Blankenship MD Primary Care Provider [phone] Encounter Details Date Type Department Care Team (Late st Contact Info) Description 06/04/2013 Orders [place] [address] Boaz Rowell MD [facility] [place] [address] Social History Tobacco Use Types Packs/Day Years [...] Diagnoses Date /Time Film Library- Storage only CT Chest Imaging Routine 06/04/2013 1:31 AM EST documented as of this encounter Visit Diagnoses Not on filedocumented in this encounter Care Teams Stave And Bolt Equalizer Relationship Specialty Start Date End Date Nayana Blankenship MD [address] [place], [place] [phone] PCP - General 03/09/10 documented as of this encounter
--- OUTSIDE RECORDS SUMMARY | 2023-12-15 06:16 | XMS_ITS | Encounter Summary ---
Author Organization Formerly [facility] Address [facility] [place] [address] Care Team Providers Care Claim Taker Name Role Phone Nayana Newberry MD Primary Care Provider [phone] Encounter Details Date Type Department Care Team (Late st Contact Info) Description 09/12/2013 10:45 AM EDT Office Visit Infectious [place] [address] Christel Spaulding MD [facility] [place] [address] Chronic cough (Primary Dx) Discharge Disposition: Home Social History [...] Sign Reading Time Taken Comments Blood Pressure 117/47 09/12/2013 10:43 AM EDT Pulse - - Temperature 36.5 ??C (97.7 ??F) 09/12/2013 1 0:43 AM EDT Respiratory Rate - - Oxygen Saturation 99% 09/12/2013 10: 43 AM EDT 1-2 liters Inhaled Oxygen Concentration - - Weight 92.8 kg (204 lb 9.6 oz) 09/13/19 14 10:43 AM EDT Height 157.5 cm (5' 2) 09/12/2013 10:4 3 AM EDT Body Mass Index 37.42 09/12/2013 10:43 AM EDT documented in this encounter Progress Notes * Christel Spaulding MD - 09/12/2013 10:51 AM EDT INFECTIOUS DISEASE OUTPATIENT CONSULT Reason for Consult: I am seeing Kyleigh Caballero at the request of NAYANA NEWBERRY MD for the evaluation of cough, SOB. HPI: Kyleigh Caballero is a 63 y.o. female with a history of COPD, strep milleri pneumonia in 02/2011 s/p decortication, PNA in 06/2012 s/p fall, hypertension, anxiety/depression, and hepatitis C. As documented in a recent Pulmonary Service note, she has been hospitalized about once a year for the last 10 years for respiratory symptoms and diagnoses, including SOB/MEZA, productive cough with intermittent hemoptysis, chest pain, emphysema and CAP. She has had excluded from her differential diagnoses Jass's granulomatosis-polyangitiitis (GPA), microscopic polyangiitis (MPA), Churg Laura, Goodpasture's, RPGN, lupus, and hypersensitivity pneumonitis. Because of response to steroids and exclusion of these other diseases, a diagnosis of cryptogenic organizing pneumonia (ROOF FITTER) was made. She was started on 30 mg prednisone in January 2013. Tapers seem poorly tolerated, and on 20 now. She perceives over one year she has significant declines. She can't do her usual hiking, shopping, taking showers. She is coughing only a couple of times a day producing light brown and white. She denies any fever/chills but does have stable little night sweats once a week. She does have a mid sternal chest pain which radiates bilaterally along the lower side of her chest. She denies any PND ororthopnea. Takes 100% of doses of Advair and Spiriva on daily basis with Duoneb 3-4/day. She is on Bactrim prophylaxis. She is on oxygen at 2L on rest and 4L on ambulation, and was recently advised DPAP after a sleep study. No other types of recurrent bacterial infections such as UTIs, otitis, but maybe has sinusitis. ROS: Gen: No fever, malaise, weight change, dizziness, syncope, or confusion. HEENT: No headaches, vision changes, sinus pain/pressure, rhinorrhea, odynophagia, dysphagia, lymphadenopathy. Pulm: As above. Cardio: Rare pleuritic chest pain, no palpitations, orthopnea, or PND. GI: No n/v/c/d, abdominal pain, jaundice. : No dysuria, pyuria, hematuria. MSK: No arthralgias, myalgias, edema. Neuro: Normal strength and sensation. Gait normal. Skin: No rashes. PMH Past Medical History Diagnosis Date ??? COPD (chronic obstructive pulmonary disease) ??? Anxiety ??? Depression ??? Hypertension ??? Arthritis ??? GERD (gastroesophageal reflux disease) ??? Hepatitis C Allergies Allergies Allergen Reactions ??? 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 A&Ox3. HEENT: PERRLA. No sclera icterus or conjunctival injection. No sinus tenderness or cervical LAD. Pulm: CTA with full symmetric excursion. No wheezes, rhonchi or crackles. Cardio: RRR, no M/G/R. GI: Abd soft, nontender with no hepatosplenomegaly. Normal BS. MSK: No deformities or arthritis evident. Neuro: CN 2-12 intact. 5/5 strength and intact sensation. Skin: No rashes. Labs Lab Results Component Value Date WBC 8.5 02/27/2013 RBC 3.85* 02/27/2013 HGB 11.3 02/27/2013 HCT 35.0 02/27/2013 MCV 90.9 02/27/2013 MCH 29.4 02/27/2013 MCHC 32.3 02/27/2013 PLATELET 283 02/27/2013 RDWCV 13.5 02/27/2013 Lab Results Component Value Date NA 137 02/27/2013 K 3.8 02/27/2013 CL 99 02/27/2013 CO2 27 02/27/2013 Lab Results Component Value Date BUN 15 02/27/2013 CREATININE 0.75 02/27/2013 Lab Results Component Value Date ALT 25 11/17/2012 AST 15 11/17/2012 ALKPHOS 66 11/17/2012 BILITOT 0.5 11/17/2012 Micro: NURF on recent sputum No AFB apparently done. Imaging/studies: Swallow eval at [facility] 06/20/13: Dx - Minimal Oropharyngeal Dysphagia primarily with solids primarily due to poor dentition; dysphagia not judged significant enough at this time to explain hx of multiple PNA's . Aspiration / Penetration Scale Score (Kiki Bowers et al. Dysphagia, 111995). 1 = no material enters the airway.Incidental finding: weak / low tone velum which occasionally results in nasal regurgitation as per pt report No Speech Pathology intervention recommended at this time. Pt advised to follow standard aspirationprecautions: sit upright for all PO; small single bites and sips; good oral care. CT CHEST 06/18/2013 Extensive parenchymal scarring with no tree in bud. CT CHEST 01/15/13: Resolved interstitial thickening, with [...] x-rays to resolution. Left lung remains clear. Stablecardiomediastinal silhouette. No pleural effusion. CT CHEST 11/15/12: [...] hemorrhage is well as other inflammatory infectiousalveolitis/process. Impression: Kyleigh Caballero is a 63 y.o. female with some smoking history and recurrent pnas of uncertain etiology. Her CTs show transient infiltrates with most recent being improved. I wonder about an immunocompromised status, and rechecking igs now intercurrent to her illnesses makes sense. Her films do not show classic findings of nontuberculous mycobacterial infection, such as tree in bud or fibro-cavitary disease but she is at risk for these as opportunistic to her damaged lung architecture. Her rule out's for aspiration and autoimmune were appropriate, but that leaves us not sure why she has these recurrent pnas. Recommendation: ?? Ig levels repeat to re-test for hypogammoglobulinemia ?? AFB series ?? Get bacterial spectrum from her OSH microbiologic exams ?? Annual flu shot and pneumovax series are especially valid for her ?? Continue TS for PCP prophylaxis ?? Will discuss with care team. ?? Unless AFB positive, no obvious reason for immediate ID follow up Christel Spaulding MD ID Attending Page [phone] 60 minutes were spent in the [id number] encounter, during which 40 minutes was spent counseling. documented in this encounter Plan of Treatment Not on file documented as of this encounter Procedures Procedure Name Priority Date/Time Associated Diagnosis Comments IMMUNOGLOBULINS, QUANTITATIVE Routine 09/12/2013 11:50 AM EDT Chronic cough documented in this encounter Results * (ABNORMAL) Immunoglobulins, Quantitative (09/12/2013 11:50 AM EDT) Immunoglobulin G 647(L) 700 - 1600 mg/dL CERNER MILLENNIUM IgA 99 70 - 400 mg/dL CERNER MILLENNIUM IgM 53 40 - 230 mg/dL CERNER MILLENNIUM Blood specimen (specimen) 09/12/2013 11:50 AM EDT 09/12/2013 12:24 PM EDT Narrative Resulting Agency Comment Spec In Lab Christel Spaulding MD CHEMISTRY ORDERABL ES [facility] documented in this encounter Visit Diagnoses Diagnosis Chronic cough- Primary Cough documented in this encounter Care Teams Claim Taker Relationship Specialty Start Date End Date Nayana Newberry MD [address] [place] [address] PCP - General 03/09/10 documented as of this encounter
--- OUTSIDE RECORDS SUMMARY | 2023-12-15 06:16 | XMS_ITS | Encounter Summary ---
Author Organization [facility] Address [facility] [place] [address] Care Team Providers Care Naprapath Name Role Phone Nayana Blankenship MD Primary Care Provider [phone] Reason for Visit * Reason Onset Date Comments Medication Refill 05/10/2013 Encounter Details Date Type Department Care Team (Late st Contact Info) Description 05/10/2013 Refill Pulmonology [place] [address] Andrzej Chapman MD [facility] [place] [address] COPD (chronic obstructive pulmonary disease) (Primary Dx) Social History Tobacco Use Types [...] Visit Diagnoses Diagnosis COPD (chronic obstructive pulmonary disease)- Primary Chronic airway obstruction, not elsewhere classified documented in this encounter Care Teams Naprapath Relationship Specialty Start Date End Date Nayana Blankenship MD [address] [place] [address] PCP - General 03/09/10 documented as of this encounter
--- OUTSIDE RECORDS SUMMARY | 2023-12-15 06:16 | XMS_ITS | Encounter Summary ---
Author Organization [facility] Address [facility] [place] [address] Care Team Providers Care Business Division Chair Name Role Phone Nayana Blankenship MD Primary Care Provider [phone] Encounter Details Date Type Department Care Team (Latest Contact Info) Description 06/20/2013 4:40 PM EST - 06/20/2013 11:59 PM EST Hospital Encounter [place] [address] SCHEDULE 1, PFT Wm De Leon MD [facility] [place] [address] Hypoxemia (Primary Dx) Discharge Disposition: Home Social History [...] PO, Three times daily 05/14/2010 predniSONE (DELTASONE) 20 mg tablet Take 20 mg by mouth. 019 predniSONE (DELTASONE) 10 mg tablet Take 20 [...] as of this encounter Procedure Notes * Veda Munoz MD - 06/20/2013 6:18 PM ESTAssociated Order(s): PULMONARY FUNCTION TEST Desaturation screening Resting oxyhemoglobin saturation on room air was 95%. Heart rate was 87 beats per minute. After walking 100 feet while breathing room air, there was desaturation to 85%. Heart rate increased to 108 beats per minute. After walking 300 feet while breathing 4 L per minute of supplemental oxygen, the lowest observed SpO2 was 93%. Impression: Ambulatory hypoxemia on room air. Adequate oximetry on the aforementioned oxygen flow rate during ambulation. VEDA MUNOZ MD documented in this encounter Plan of Treatment Not on file documented as of this encounter Procedures Procedure Name Priority Date/Time Associated Diagnosis Comments COMMON PULMONARY FUNCTION TEST Routine 06/20/2013 6:19 PM EST Hypoxemia documented in this encounter Results * Pulmonary Function Testing (06/20/2013 6:19 PM EST) Narrative Veda Munoz MD - 06/20/2013 6:19 PM EST Veda Munoz MD ? 06/20/2013 ??6:19 PM Desaturation screening Resting oxyhemoglobin saturation on room air was 95%. Heart rate was 87 beats per minute. After walking 100 feet while breathing room air, there was desaturation to 85%. Heart rate increased to 108 beats per minute. After walking 300 feet while breathing 4 L per minute of supplemental oxygen, the lowest observed SpO2 was 93%. Impression: Ambulatory hypoxemia on room air. Adequate oximetry on the aforementioned oxygen flow rate during ambulation. VEDA MUNOZ MD Procedure Note Veda Munoz MD - 06/20/2013 6:18 PM EST Desaturation screening Resting oxyhemoglobin saturation on room air was 95%. Heart rate was 87beats per minute. After walking 100 feet while breathing room air, there was desaturation to85%. Heart rate increased to 108 beats per minute. After walking 300 feet while breathing 4 L per minute of supplementaloxygen, the lowest observed SpO2 was 93%. Impression: Ambulatory hypoxemia on room air. Adequate oximetry on theaforementioned oxygen flow rate during ambulation. VEDA MUNOZ MD Authorizing Provider Result Ac De Leon MD PFT ORDERABLES documented in this encounter Visit Diagnoses Diagnosis Hypoxemia- Primary documented in this encounter Care Teams Business Division Chair Relationship Specialty Start Date End Date Nayana Blankenship MD [address] [place] [address] PCP - General 03/09/10 documented as of this encounter
--- OUTSIDE RECORDS SUMMARY | 2023-12-15 06:16 | XMS_ITS | Encounter Summary ---
Author Organization [facility] Address [facility] [place] [address] Care Team Providers Care Surgical Attendant Name Role Phone Nayana Blankenship MD Primary Care Provider [phone] Encounter Details Date Type Department Care Team (Late st Contact Info) Description 09/17/2013 Orders [place] [address] Wm De Leon MD [facility] [place]ULMON[place] [address] Social History Tobacco Use Types Packs/Day Years [...] Associated Diagnosis Comments FILM LIBRARY STORAGE ONLY DX CHEST Routine 09/17/2013 6:08 AM EDT documented in this encounter Results * Film Library- Storage only DX Chest (09/17/2013 6:08 AM EDT) Anatomical Region Laterality Modality Other 09/17/2013 6:08 AM EDT Narrative 10/02/2013 6:13 AM EDT This is a Non-reportable exam Procedure Note 10/02/2013 This is a Non-reportable exam Wm De Leon MD [facility] FILM LIBRARY ORD ERABLES documented in this encounter Visit Diagnoses Not on filedocumented in this encounter Care Teams Surgical Attendant Relationship Specialty Start Date End Date Nayana Blankenship MD [address] [place] [address] PCP - General 03/09/10 documented as of this encounter
--- OUTSIDE RECORDS SUMMARY | 2023-12-15 06:16 | XMS_ITS | Encounter Summary ---
Author Organization [facility] Address [facility] [place] [address] Care Team Providers Care Brick Sorter Name Role Phone Nayana Blankenship MD Primary Care Provider [phone] Encounter Details Date Type Department Care Team (Late st Contact Info) Description 04/01/2013 [place] [address] Andreas Andrews MD [facility] [address] Social History Tobacco Use Types Packs/Day Years [...] Library- Storage only DX Chest Imaging Routine 04/01/2013 4:04 AM EST documented as of this encounter Visit Diagnoses Not on filedocumented in this encounter Care Teams Brick Sorter Relationship Specialty Start Date End Date Nayana Blankenship MD [address] [place], [place] [id number] PCP - General 03/09/10 documented as of this encounter
--- OUTSIDE RECORDS SUMMARY | 2023-12-15 06:16 | XMS_ITS | Encounter Summary ---
Author Organization [facility] Address [facility] [place] [address] Care Team Providers Care Engineering Designer Name Role Phone Nayana Blankenship MD Primary Care Provider [phone] Encounter Details Date Type Department Care Team (Latest Contact Info) Description 06/20/2013 12:55 PM EST - 06/20/2013 4:39 PM EST Hospital Encounter XRay at [address] [place] [address] CLIN[address], DR JORDAN Aspiration pneumonia Social History Tobacco Use Types Packs/Day Years [...] 09/13/19 14 documented as of this encounter Miscellaneous Notes * Miscellaneous - Provider, Scanning - 06/27/2013 9:55 AM EDT documented in this encounter Plan of Treatment Not on file documented as of this encounter Procedures Procedure Name Priority Date/Time Associated Diagnosis Comments XR FLUORO BARIUM SWALLOW (MODIFIED/VIDEO SWALLOW PHARYNX) Routine 06/20/2013 1:30 PM EST Aspiration pneumonia documented in this encounter Results * XR Fluoro modified [...] in this encounter Visit Diagnoses Diagnosis Aspiration pneumonia Pneumonitis due to inhalation of food or vomitus documented in this encounter Care Teams Engineering Designer Relationship Specialty Start Date End Date Nayana Blankenship MD [address] [place] [id number] PCP - General 03/09/10 documented as of this encounter
--- OUTSIDE RECORDS SUMMARY | 2023-12-15 06:16 | XMS_ITS | Encounter Summary ---
Author Organization [facility] Address [facility] [place] [address] Care Team Providers Care Expansion Joint Finisher Name Role Phone Nayana Newberry MD Primary Care Provider [phone] Reason for Visit * Reason Comments Follow-up Palliative Care Encounter Details Date Type Department Care Team (Late st Contact Info) Description 06/03/2014 2:30 PM EST Follow-[place] [address] Vear White MD [facility] [place] [address] MEZA (dyspnea on exertion); Chronic pain in right shoulder; Primary osteoarthritis involving multiple joints; COPD, moderate; Palliative care by specialist Discharge Disposition: Home Social History Tobacco Use [...] as of this encounter Progress Notes * Vera White MD - 06/02/2014 3:40 PM EST Outpatient Palliative Medicine Follow-up Visit Patient: Kyleigh Caballero : 1950 Date of visit: 06/03/14 Referring provider: Dr. Srinivasan Salas Primary care provider: NAYANA NEWBERRY MD ID: Kyleigh Caballero is a 64 y.o. female from [place], [place] with ABATTOIR MANAGER and COPD, followed by the Palliative Care Service for goals of care, coping, and assistance with symptom management. She is accompanied by her Teo at this visit in , immediately following her visit with Dr. Salas. Clinical summary: She has been hospitalized for respiratory issues at least once a year for 10 years, more frequentlybetween January 2013 and December 2013, with several ICU stays and ventilation of up to 2 weeks. She has had COPD for several years, but the severity of her COPD is unclear, given intercurrent recerrent pneumonias and ABATTOIR MANAGER. Extensive workup has not revealed a unifying pulmonary diagnosis. She hasrecurrent infections, with strep milleri pneumonia in 02/2011 s/p decortication, PNA in 06/2012 s/p a fall. Around August 2012 she was treated with antibiotics for sinus infections. In October she had a chest CT in [place], [place], showing emphysema and ground glass opacities. She was admitted to [facility] in November for [...] that she likely has cryptogenic organizing pneumonia (ABATTOIR MANAGER). On a follow up telephone conversation her chest tightness significantly improved together with no more gaby colored sputum on higher dose steroid. She was at again [facility] for RLL pneumonia [...] PCP. On 03/26/13 she was admitted to [facility] with LLL pneumonia around 03/30/13. She has had several readmissions to [facility] for respiratory events, thought to be pneumonia. She was started on 30 mg of Prednisone for 2 months for ABATTOIR MANAGER when seen in January 2013. At that [...] worse during her most recent hospitalization at [facility]. She was started on MSContin, and spent 3 weeks in rehab following her hospitalization. She is now back home, walking a little more every day. She lives with Teo in the [facility] in [place], [place], a [address] [facility]. They come to [facility] only to see Dr. De Leon, with visits every 2-3 months. Both agree that more frequent visits would be a significant burden. 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 She has 3 [...] they make decisions together. Interval History: She has done well from a pulmonary perspective, with no hospitalizations for the last 6 months. Sheand Teo are very pleased by this. 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 Teo says a hiatal hernia has been identified, and there is concern that she has recurrent aspiration. She has changed the content of her diet and the timing of when sheeats as a result. PHYSICAL CONCERNS: Pain: She reports constant pain in her shoulder, which limits her activity, and constant low back pain, as well as migratory pain in her hips and knees which is worse with activity. She uses Vicodin for this, and asks several times if she could have something stronger for pain. She asks if Percosetis stronger than Vicodin, and what might be stronger than Percoset. Pain management is through Dr. Newberry, who continues to work with Kyleigh to limit her exposure to narcotics. Her outdoor activity has been limited by the recent snow and cold temperatures. She does some head of cytogenetics, enjoys coloring, and watches TV. She is looking forward to getting out again in better weather. We discussed having home PT for general strengthening and fall protection, but she is not interested. Appetite is good. She has lost some weight, because she has changed the way she eats because of herhiatal hernia. Bowels are moving regularly. EMOTIONAL ISSUES: Her spirits are good, and she is pleased to have stayed out of the hospital for so long. They say their 2 grandchildren still at home are doing well; the 14-year-old girl is behaving like an adolescent but they don't have serious concerns about her today. ADVANCE DIRECTIVES: Yes, on file in eD. GOALS OF CARE: She wants to get better and live a long time. She continues to want no limits on her care. She is comfortable while in the hospital (or at least doesn't remember the uncomfortable parts) and has no doubt about pursuing acute care again if her health deteriorates. She is comfortable in the ICU and didn't mind the ventilator, and would seek that care again without hesitation if she were having trouble breathing. She has never considered limiting care; she says that if she were really sick again and uncomfortable she might consider it, but that's a decision she would make in the moment. ROS: Pertinent items are noted in HPI. PMH: Patient Active Problem List Diagnosis ??? COPD ??? Hypertension (HTN) ??? Esophageal [...] Smoking status: Former Smoker ??? Smokeless tobacco: Not on file ??? Alcohol Use: No Comment: A few beers a week ??? Drug Use: No ??? Sexual Activity: No Other Topics Concern ??? Not on file Social History Narrative PHYSICAL EXAMINATION Vitals Follow-Up from 06/03/2014 in Pulmonology Weight - Scale 83.008 kg (183 lb) Height 157.5 cm (5' 2) BSA (Calculated - sq m) 1.91 sq meters BMI (Calculated) 33.5 Heart Rate 85 Resp 18 BP 137/65 mmHg SpO2 98 % She is well nourished, well hydrated, and appears comfortable seated in a straight chair. Skin color and turgor are good. She speaks in full sentences without pausing to catch her breath. No cough noted. No pursed lip breathing. Gait was not tested. DIAGNOSTIC STUDIES: LABS: No results found for this or any previous visit (from the past 72 hour(s)). 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 ASSESSMENT: Kyleigh Caballero is a 64 y.o. female from [place], [place] with ABATTOIR MANAGER, COPD, severe DJD, and anxiety. Her goals are to live as long and fully as possible, and she is willing to tolerate invasive treatments in order to extend her life. Her symptom burden includes pain in her shoulders, hips and knees, attributed to severe DJD. She isdoing better with her breathing, and has lost weight due to diet changes. She is contemplating bothhiatus hernia surgery and shoulder surgery, and we spent much of this visit discussing how to approach information gathering and medical decision making about this - considering each procedure separately and on its own merits; starting with consultation with the appropriate surgeon (general and orthopedic), then with careful pre-operative risk assessment, and only then deciding whether to proceedwith either. We also spent time discussing the limits of opioid therapy for chronic musculoskeletal pain, with the potential for poorer long-term outcome with use of stronger pain medicine, because of respiratorysuppression, neurotoxicity, sedation, falls, constipation. Kyleigh listened with evident skepticismand at the end of the conversation said, but maybe I should have something stronger than Vicodin. She is coping well with no significant emotional distress today. PLAN: Follow up with orthopedics re: shoulder and possible surgery Follow up with general surgery re: hiatal hernia and possible surgery Careful pre-operative evaluation and supported decision- making based on goals and risk analysis before proceeding. I offered home PT for general strengthening - she said no Pain management per Dr. Newberry: I agree with limiting her access to opioids, and made this clear Amilcarxena and Teo today. Follow-Up: 3 months, linked with pulmonary Thank you for including the palliative care team in your patient's care. We will continue to followthe patient and family with you. I reviewed all pertinent portions of the medical record including notes and results of studies. 30 minutes of this 35 minute visit were spent face to face with the patient in counseling regardingmedical decision making, goals of care, and symptom management. documented in this encounter Plan of Treatment Not on file documented as of this encounter Visit Diagnoses Diagnosis MEZA (dyspnea on exertion) Other dyspnea and respiratory abnormality Chronic pain in right shoulder Pain in joint, shoulder region Primary osteoarthritis involving multiple joints COPD, moderate Chronic airway obstruction, not elsewhere classified Palliative care by specialist documented in this encounter Care Teams Expansion Joint Finisher Relationship Specialty Start Date End Date Nayana Newberry MD [address] [place] [address] PCP - General 03/09/10 documented as of this encounter
--- OUTSIDE RECORDS SUMMARY | 2023-12-15 06:16 | XMS_ITS | Encounter Summary ---
Author Organization [facility] Address [facility] [place] [address] Care Team Providers Care Materials Planner Name Role Phone Nayana Blankenship MD Primary Care Provider [phone] Encounter Details Date Type Department Care Team (Late st Contact Info) Description 04/26/2013 Telephone [place] [address] Andrzej Chapman MD [facility] [place] [address] Social History Tobacco Use Types Packs/Day Years [...] encounter Miscellaneous Notes * Telephone Encounter - Tiffany Spears - 04/26/2013 3:05 PM EST Please sign orders documented in this encounter Plan of Treatment Not on file documented as of this encounter Visit Diagnoses Diagnosis Acute exacerbation of chronic obstructive airways disease- Primary Obstructive chronic bronchitis with exacerbation documented in this encounter Care Teams Materials Planner Relationship Specialty Start Date End Date Nayana Blankenship MD [address] [place] [address] PCP - General 03/09/10 documented as of this encounter
--- OUTSIDE RECORDS SUMMARY | 2023-12-15 06:16 | XMS_ITS | Encounter Summary ---
Author Organization [facility] Address [facility] [place] [address] Care Team Providers Care Lens Cutter Name Role Phone Nayana Newberry MD Primary Care Provider [phone] Reason for Visit * Reason Comments Follow-up Encounter Details Date Type Department Care Team (Late st Contact Info) Description 06/03/2014 1:15 PM EST Follow-[place] [address] Srinivasan Salas MD [facility] [place] [address] Cryptogenic organizing pneumonia; COPD (chronic obstructive pulmonary disease) Discharge Disposition: Home Social History Tobacco Use [...] Reading Time Taken Comments Blood Pressure 137/65 06/03/2014 1:24 PM EST Pulse 85 06/03/2014 1:24 PM EST Temperature - - Respiratory Rate 18 06/03/2014 1:24 PM EST Oxygen Saturation 98% 06/03/2014 1:24 PM EST Inhaled Oxygen Concentration - - Weight 83 kg (183 lb) 06/03/2014 1:24 PM EST Height 157.5 cm (5' 2) 06/03/2014 1:24 PM EST Body Mass Index 33.47 06/03/2014 1:24 PM EST documented in this encounter Progress Notes * Wilman Jones Jr., MD - 06/06/2014 9:36 PM EST Pulmonary Attending I personally interviewed and examined Ms. Caballero. I discussed my findings with Dr. Salas. I reviewed the clinical note and pertinent objective data. I agree with the assessment and plan. In additionto the plan as outlined by Dr. Salas, Ms. Caballero and I spoke at length about the risks and benefits of using an e- cigarette for smoking cessation, as opposed using nicotine patches / gum / other pharmacologic strategies. --Heber Jones MD * Srinivasan Salas - 06/03/2014 1:23 PM EST Date of Service: 06/03/2014 Primary Care Physician: NAYANA NEWBERRY MD PULMONARY MEDICINE FOLLOW-UP NOTE: CC: f/u HAND TRIMMER HPI: Kyleigh Caballero is a 64 y.o. female with a history of COPD, former smoker, strep milleri pneumonia in 02/2011 s/p decortication, PNA in 06/2012 s/p a fall, anxiety, GERD, HepC seen in pulmonary clinic for follow-up of HAND TRIMMER and COPD. She is currently using 2L of oxygen at rest and 2.5 - 3L on exertion. O2 sat at 98% at rest and desat to low 90s with exertion. Cough on a daily basis with white/clear phlegm at present. She denies any PND or orthopnea. She is using Advair and Spiriva on daily basis. Currently not using DuoNeb. She is not on Bactrim prophylaxis. Review of Systems: CONSTITUTIONAL: Has no subjective chills, fatigue. ENT: Nasal Congestion: None GI: Has occasional acid reflux/ hearburn PULM: Positive cough with sputum production. No SOB and MEZA. CV: No chest pain /pressure, palpitations, lightheadedness/dizziness. Interval Medical History: Past Medical History Diagnosis Date ??? COPD (chronic obstructive pulmonary disease) ??? Anxiety ??? Depression ??? Hypertension ??? Arthritis ??? GERD (gastroesophageal reflux disease) ??? Hepatitis C HAND TRIMMER Medications: Current Outpatient Prescriptions on File Prior [...] Lisinopril; and Trazodone PE: VS: Filed Vitals: 06/03/14 1324 BP: 137/65 Pulse: 85 Resp: 18 Height: 157.5 cm (5' 2) Weight: 83.008 kg (183 lb) SpO2: 98% GENERAL APPEARANCE: sitting in chair comfortably, able [...] positive [facility] [place] her O2 saturation went down to 89% at the minimum. She was evidently subjectively SOB with her oxygenation mostly in 90- 91% range. 03/26/13: [facility] saturation went down to 88% [...] result represent residual disease versus infectious change. CT CHEST OSH 07/01/13: Acute fracture of right 7 th. rib with associated effusion and atelectasis. Old healed anterolateral fracture of right 8 th. rib and a non united fracture of post aspect of same. Extensive COPD and parenchymal scarring. CT CHEST 01/15/13: Resolved interstitial thickening, with no evidence of in interstitial process/fibrosing lung disorder. No new or progressive pulmonary pathology. Centrilobular emphysema. CT CHEST 11/15/12: Comparison 05/14/10: 1. Underlying [...] hemorrhage is well as other inflammatory infectiousalveolitis/process. EGD done 03/19/14 Probably ongoing aspiration (thought to be multifactorial - body habitus, narcotic use leading to poor gastric emptying) Gi suggesting 24hr pH monitoring. TTE 04/12/13: LVEF >70%. LA mildly dilated. Normal RV size and function. Assessment: Kyleigh Caballero is a 64 y.o. female with a history of COPD, former smoker, strep milleri pneumonia in 02/2011 s/p decortication, PNA in 06/2012 s/p a fall, anxiety, GERD, HepC seen in pulmonary clinicfor follow-up of HAND TRIMMER and COPD. Clinically stable at present. Recommendations HAND TRIMMER: - On prednisone 10mg daily. We will keep it at 10mg for now without plan to taper. If she has an exacerbation would use 60mg for 5-7 days and go back to 10mg to avoid prolonged tapers and therefore decrease overall exposure to steroids COPD/Emphysema: - mild obstruction with moderate impairment in diffusion per last PFT - Recommend to continue current therapy i.e. Advair, Spiriva, and Duoneb prn - spoke about e-cigartettes Hypoxemia: - TTE done at OSH and did not show any evidence of pHTN. - 2L at rest if no SOB and desat. She is using 2.5-3L on exertion - Goal oxygen saturation >88% at all times. Vaccination: - last flu shot was in Jan 2014. - She mentioned she had a pneumonia shot once before. She will be due for another pneumonia shot atage 66 yrs. ?Surgery: - Ms Caballero is thinking of possible shoulder repair or hiatal hernia repair and is interested in a pulmonary risk assessment. I encouraged her to speak to her surgeon and if there is a date for the procedure we will be happy to give her a formal risk assessment. My guess is that she is at moderatelyelevated risk for respiratory failure and sx should not be absolutely contraindicated. Srinivasan Salas MD This case was supervised by Dr. Jones who saw the patient and participated in the formulation of the above plan. documented in this encounter Plan of Treatment Not on file documented as of this encounter Visit Diagnoses Diagnosis Cryptogenic organizing pneumonia Other specified alveolar and parietoalveolar pneumonopathies COPD (chronic obstructive pulmonary disease) Chronic airway obstruction, not elsewhere classified documented in this encounter Care Teams Lens Cutter Relationship Specialty Start Date End Date Nayana Newberry MD [address] [place] [address] PCP - General 03/09/10 documented as of this encounter
--- OUTSIDE RECORDS SUMMARY | 2023-12-15 06:16 | XMS_ITS | Encounter Summary ---
Author Organization [facility] Address [facility] [place] [address] Care Team Providers Care Receiving Lead Name Role Phone Nayana Blankenship MD Primary Care Provider [phone] Encounter Details Date Type Department Care Team (Latest Contact Info) Description 12/10/2013 10:38 AM EDT - 12/10/2013 11:59 PM EDT Hospital Encounter XRay at [address] [place] [address] Interstitial lung disease Social History Tobacco Use Types Packs/Day Years [...] 11/20/2012 11/27/2018 documented as of this encounter Plan of Treatment Not on file documented as of this encounter Procedures Procedure Name Priority Date/Time Associated Diagnosis Comments XR CHEST PA AND LATERAL Routine 12/10/2013 10:44 AM EDT Interstitial lung disease documented in this encounter Results * XR chest routine PA & lateral (12/10/2013 10:44 AM EDT) Anatomical Region Laterality Modality Chest N/A Radiographic Nan ging 12/10/2013 10:4 4 AM EDT Narrative 12/10/2013 2:40 PM EDT Examination CHEST ROUTINE 2 VIEWS Clinical History VICE PRESIDENT QUALITY with aspiration now recovering, any change? Comparison [...] Examination CHEST ROUTINE 2 VIEWS Clinical History VICE PRESIDENT QUALITY with aspiration now recovering, any change? Comparison [...] this encounter Visit Diagnoses Diagnosis Interstitial lung disease Postinflammatory pulmonary fibrosis documented in this encounter Care Teams Receiving Lead Relationship Specialty Start Date End Date Nayana Blankenship MD [address] [place] [address] PCP - General 03/09/10 documented as of this encounter
--- OUTSIDE RECORDS SUMMARY | 2023-12-15 06:16 | XMS_ITS | Encounter Summary ---
Author Organization [facility] Address [facility] [place] [address] Care Team Providers Care Line Driver Name Role Phone Nayana Blankenship MD Primary Care Provider [phone] Encounter Details Date Type Department Care Team (Late st Contact Info) Description 06/20/2013 1:00 PM EST Office Visit [place] [address] [place] [address] Camilla Aguilar, DRYWALL FOREMAN Andrzej Chapman MD [facility] [place] [address] Wm De Leon MD [facility] [address] Dysphagia, unspecified(787.20) (Primary Dx) Discharge Disposition: Home Social History [...] as of this encounter Progress Notes * Camilla Aguilar, DRYWALL FOREMAN - 07/01/2013 1:54 PM EDT G-Code: Swallowing Status Modifier CURRENT CI - At least 1 percent but less than 20 percent impaired, limited or restricted PROJECTED CI - At least 1 percent but less than 20 percent impaired, limited or restricted DISCHARGE CI - At least 1 percent but less than 20 percent impaired, limited or restricted G Code Rationale: This G-Code and these disability modifiers were selected as the primary speech therapy goal based upon the patient's evaluation including clinical presentation on tests and clinicaljudgement. Ms. Caballero's current G-Code functional level is 10% impaired based upon MBS results. * Camilla Aguilar, DRYWALL FOREMAN - 06/20/2013 1:40 PM EST Speech-Language Pathology Modified Barium Swallow Evaluation 1950 Total Treatment Time: 60 min. eval Total Timed Code Treatment: 0 min. Recommendations / Staff Communication: ?? Diet: regular (pt continue avoiding hard to chew solids, cut up solids small) ?? Follow standard Aspiration Precautions ?? Consider Neurology consult if naso-regurgitation worsens or other s/s muscular weakening noted in future S: Pt. denies pain at this time. Pt alert and cooperative with study. Pt states that she has occasional trouble swallowing solids (ex: meats and crackers), denies difficulty w/ liquids or meds. Pt notes that she occasionally has food come out her nose when she coughs. O: Medical History: Pt w/ hx significant for COPD, multiple recent hospitalizations for PNA. Dental Director wanting to r/o aspiration PNA as cause. Current Diet: Regular, pt avoids difficult to chew solids Cognitive-Linguistic Status: alert, Ox3, able to follow simple directions and respond to basic questions Respiratory Status: pt on 2L O2 nasal cannula Feeding / Oral Care Status: pt independent; Seating and Positioning: pt able to sit up with head midline without assistance Oral Peripheral WFL: labial, buccal, lingual, jaw ROM, strength, agility, and sensation are adequate for PO intake Adequate laryngeal elevation, retraction to palpation Volitional swallow, throat clear, cough prompt and strong Speech and voice judged to be WNL Difficulties Observed: ?? Multiple missing dentition ?? Decreased velar elevation, retraction ?? Diminished gag ?? Decreased respiratory status Bolus Presentation(s) (all consistencies are mixed with Barium) ?? thin liquid, nectar consistency thickened liquid, honey consistency thickened liquid via spoon, via cup, via straw ?? thin puree, thick puree via spoon ?? mechanical soft via spoon ?? regular small bite, large bite Oral Preparatory Phase Adequate lip closure, no loss from oral cavity; adequate bolus cohesion and A-P propulsion for liquids, purees; prompt swallow initiation, no oral residue noted. Difficulties Revealed: ?? Poor bolus cohesion with premature spillage over posterior oral tongue ?? Oral, palatal residue w/ solids ?? Tongue pumping w/ solids ?? Piecemeal deglutition w/ solids ?? Prolonged mastication w. solids Pharyngeal Phase No overt clinical s/s aspiration or pharyngeal dysphagia noted during evaluation. Difficulties Revealed: (Lateral View) ?? No naso-pharyngeal reflux / regurgitation noted today ?? Delay in swallow initiation; 2 second average ?? Premature spillage into valleculae ?? Swallow triggered at vallecular spaces ?? Mildly Delayed laryngeal elevation and closure ?? Multiple swallows to clear Esophageal Phase WFL, no reflux noted, normal relaxation of upper esophageal sphincter A: Dx: ?? Minimal Oropharyngeal Dysphagia primarily with solids primarily due to poor dentition; dysphagianot judged significant enough at this time to explain hx of multiple PNA's . ?? Aspiration / Penetration Scale Score (RosenbeckKiki et al. Dysphagia, 111995) 1 = no material enters the airway ?? Incidental finding: weak / low tone velum which occasionally results in nasal regurgitation as per pt report P: ?? No Speech Pathology intervention recommended at this time. ?? Pt advised to follow standard aspiration precautions: sit upright for all PO; small single bitesand sips; good oral care ?? Pt. in agreement with plan of treatment. Thank you for this consult with this patient. Please feel free to page me with any questions or concerns. Camilla Aguilar MA CCC-DRYWALL FOREMAN Inpatient Rehabilitation Medicine Pager:# [phone] documented in this encounter Plan of Treatment Not on file documented as of this encounter Visit Diagnoses Diagnosis Dysphagia, unspecified(787.20)- Primary Dysphagia, unspecified documented in this encounter Care Teams Line Driver Relationship Specialty Start Date End Date Nayana Blankenship MD [address] [place] [address] PCP - General 03/09/10 documented as of this encounter
--- OUTSIDE RECORDS SUMMARY | 2023-12-15 06:16 | XMS_ITS | Encounter Summary ---
Author Organization [facility] Address [facility] [place] [address] Care Team Providers Care Automotive Sales Manager Name Role Phone Nayana Blankenship MD Primary Care Provider [phone] Encounter Details Date Type Department Care Team (Late st Contact Info) Description 01/25/2014 [place] [address] Andreas Andrews MD [facility] [place] [address] Social History Tobacco Use Types Packs/Day Years [...] FILM LIBRARY STORAGE ONLY DX CHEST Routine 01/25/2014 2:40 PM EDT documented in this encounter Results * Film Library- Storage only DX Chest (01/25/2014 2:40 PM EDT) Anatomical Region Laterality Modality Other 01/25/2014 2:40 PM EDT Narrative 02/24/2014 2:41 PM EST This is a Non-reportable exam Procedure Note HAM, UNSIGNED REPORT - 02/24/2014 This is a Non-reportable exam Andreas Andrews MD [facility] FILM LIBRARY ORD ERABLES documented in this encounter Visit Diagnoses Not on filedocumented in this encounter Care Teams Automotive Sales Manager Relationship Specialty Start Date End Date Nayana Blankenship MD [address] [place] [address] PCP - General 03/09/10 documented as of this encounter
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
--- OUTSIDE RECORDS SUMMARY | 2023-12-15 06:16 | XMS_ITS | Encounter Summary ---
Author Organization [facility] [place] [address] Care Team Providers Care Derrick Boat Leverman Name Role Phone Nayana Blankenship MD Primary Care Provider Reason for Visit * Reason Onset Date Comments Medication Refill 06/24/2013 Encounter Details Date Type Department Care Team (Late st Contact Info) Description 06/24/2013 Refill [place] [address] Andrzej Chapman MD [facility] [place] [address] Bacterial pneumonia, unspecified (Primary Dx) Social History Tobacco Use Types [...] as of this encounter Visit Diagnoses Diagnosis Bacterial pneumonia, unspecified- Primary documented in this encounter Care Teams Derrick Boat Leverman Relationship Specialty Start Date End Date Nayana Blankenship MD [address] [place], [place] [address] PCP - General 03/09/10 documented as of this encounter
--- OUTSIDE RECORDS SUMMARY | 2023-12-15 06:16 | XMS_ITS | Encounter Summary ---
Author Organization Formerly [facility] [place] [address] Care Team Providers Care Horseshoer Name Role Phone Nayana Blankenship MD Primary Care Provider Reason for Referral * Consultation (Routine) - Closed Specialty Diagnoses / Procedures Referred By Contac t Referred To Contact Infectious Diseases Diagnoses Bacterial pneumonia, unspecified IgG deficiency Andrzej Chapman MD [facility] [place] [address] [facility] [address] [place] [address] Referral ID Status Reason Start Date Expiration Date V isits Requested Visits Authorized [id number] Closed Consult, Test & Treat 06/20/2013 12/17/2013 1 1 Reason for Visit * Reason Comments Follow-up Encounter Details Date Type Department Care Team (Late st Contact Info) Description 06/20/2013 2:45 PM EST [place] [address] Wm De Leon MD [facility] [place] [address] Bacterial pneumonia, unspecified; IgG deficiency Discharge Disposition: Home Social History Tobacco Use [...] Sign Reading Time Taken Comments Blood Pressure 139/86 06/20/2013 3:05 PM EST Pulse 86 06/20/2013 3:05 PM EST Temperature - - Respiratory Rate 20 06/20/2013 3:05 PM EST Oxygen Saturation 100% 06/20/2013 3:05 PM EST Inhaled Oxygen Concentration - - Weight 97.1 kg (214 lb) 06/20/2013 3:05 PM EST Height 157.5 cm (5' 2) 06/20/2013 3:05 PM EST Body Mass Index 39.14 06/20/2013 3:05 PM EST documented in this encounter Progress Notes * Wm De Leon MD - 06/27/2013 4:45 PM EDT What a complex case! We have been dealing with frequent exacerbations of shortness of breath that sometimes appear to be pneumonia and sometimes not. We have continued her steroids due to the fact that she has not had full EMS DRIVER rx as far as number ofmonths and because some of these exacerbations may be due to this disease. See Dr. Chapman's note as far as swallowing issues are concerned. 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 Briefly, she has a history of COPD, strep milleri pneumonia in 02/2011 s/p decortication, PNA in 06/2012 s/p a fall, hypertension, anxiety/depression, and hepatitis C. She has a history of being hospitalized at least once a year for the last 10 years for respiratory issues. She was admitted to [facility] in November after being transferred from an OSH for further evaluation of SOB/hemoptysis from 11/15/12- 11/20/12. Prior to that admission starting around August of 2012 she was treated with antibiotics couple of times for a sinus infection. For this she was seen in ER at [facility] around mid to end October when she had a chest CT which showed emphysema with b/l ground glass opacities. She was than transferred to [facility] for further work up and management. 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 On a follow up telephone conversation her chest tightness significantly improved together with no more gaby colored sputum on higher dose steroid. She was at again [facility] for RLL pneumonia in February [...] in March 2013 following the discharge from [facility] she was again on outpatient course of Levaquin per her PCP. Soon after seen in office on 03/26/13 she ended up in with LLL pneumonia around 03/30/13. She was again noted to be hypoxic with a leukocytosis (~25k). Following the discharge she was seen in office on 05/01/13.Since seen in office the last time she ended up at number of times due to breathing issues, at times felt to be due to PNA. It is interesting to note that these recurrent admission coincided with decreasing dose of Prednisone. Also, when seen the last time on 05/01/13 she complained of left shoulder after pulling up on bar while at during March 2013. The pain wasdescribed as constant, sharp, and 7/10 in intensity. She was using oxygen at 2L on rest and 4L on ambulation at home which was the same as when seen on 03/26/13 but worse when compared to 01/2013. 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 Talking to her significant other multiple times over the phone through out herrecurrent admission at OSH there were few possibilities popped up as possible explanation for her recurrent admissions for SOB i.e. Recurrent aspiration, role of pain/anxiety medications, and impaired immunity leading to recurrent infections. We did review the records of recurrent hospital stays [facility], details of imaging done at OSH under imaging section below. Today: When seen today she complains of worsening SOB as compared to April when seen last. She is coughing on daily basis with white/clear phlegm. She denies any fever/chills or URI symptoms. She does have a mid sternal chest pain which radiates bilaterally along the lower side of her chest. She denies any PND or orthopnea. She is using Advair and Spiriva on daily basis with Duoneb 3-4/day since discharge from the hospital. She is also on Prednisone 20 mg q day. She is on Bactrim prophylaxis. She nai oxygen at 2L on rest and 4L on ambulation. As per her significant she has been having some memory problems and an overall slow mentation. She is not having any hallucination. She is not burping a lot and denies any burning chest pain. She is following up with her PCP who is managing her BGM. She has been sleeping well overnight. She has history of anxiety which has been stable on her medications. She also does have a history of GERD whichis being helped by the PPi BID. She is taking NSAID and Vicodin for her pain. She just ran out of Vicodin today. She was using it once per day for the last 3-4 days. She is also taking medications for anxiety twice a day. She was seen in office as a follow up today. Swallow eval at [facility] 06/20/13: Dx - Minimal Oropharyngeal [...] solids while sitting at 90 degree angle. Past Medical History: Past Medical History Diagnosis Date ??? COPD (chronic obstructive pulmonary disease) ??? Anxiety ??? Depression ??? Hypertension ??? Arthritis ??? GERD (gastroesophageal reflux disease) ??? Hepatitis C Past Surgical History: Past Surgical History Procedure Date ??? Clavicle surgery broken left clavicle ??? Nose surgery broken nose ??? 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 furosemide (LASIX) 20 mg tablet ??? sulfamethoxazole-trimethoprim (BACTRIM DS) 800-160 mg per tablet Take 1 tablet by mouth every other day. 30 tablet 3 ??? doxycycline (VIBRA-TABS) 100 mg tablet Take 1 tablet by mouth 2 times daily. 14 tablet 0 ??? diaZEPam (VALIUM) 5 mg tablet Take [...] mouth every morning. 90 tablet 3 ??? simvastatin (ZOCOR) 20 mg tablet Take 1 tablet by mouth nightly. 90 tablet 3 ??? tiotropium (SPIRIVA WITH HANDIHALER) 18 mcg inhalation capsule Inhale 1 capsule into the lungs daily. 90 capsule 0 ??? ipratropium-albuterol (DUONEB) 0.5 mg-3 mg(2.5 mg base)/3 mL nebulizer solution Take 3 mLs by nebulization every 4 hours as needed. ??? DICLOFENAC SODIUM/MISOPROSTOL (ARTHROTEC 50 ORAL) ??? ERGOCALCIFEROL, VITAMIN D2, (VITAMIN D ORAL) ??? ibuprofen (ADVIL;MOTRIN) 800 mg tablet 800 MG = 1 Tablet(s), PO, Three times daily ??? predniSONE (DELTASONE) 10 mg tablet Take 15 mg by mouth daily. ??? levofloxacin (LEVAQUIN) 750 mg tablet Take 750 mg by mouth daily. ??? predniSONE (DELTASONE) 20 mg tablet Take 1 tablet by mouth daily. 30 tablet 2 ??? cefPODoxime (VANTIN) 200 mg tablet Take 1 tablet by mouth 2 times daily. 14 tablet 0 ??? hydroCODone-acetaminophen (VICODIN) 5-500 mg per tablet Take 1 tablet by mouth every 6 hours asneeded. ??? nystatin (MYCOSTATIN) 100,000 unit/mL suspension Take 5 mLs by mouth 3 times daily as needed. 60 mL 0 Last reviewed on 06/20/2013 3:11 PM by Alba Byrne LPN Adverse Drug Reactions: Allergies Allergen Reactions [...] NIGHTMARES, CIS - NIGHTMARES Review of Systems: As above in HPI. Rest is all negative/wnl. Physical Examination: BP 139/86 Pulse 86 Resp 20 Ht 157.5 cm (5' 2) Wt 97.07 kg (214 lb) BMI 39.13 kg/m2 SpO2 100% GENERAL APPEARANCE: sitting in chair comfortably, able to talk in full sentences HEENT: NC and AT, ear/nose symmetrical and non tender, mild nasal erythema with some crusted blood on left NECK: supple, no cervical lymphadenopathy CHEST: crackles lower 1/3 b/l otherwsie CTA b/l HEART: S1 S2, RRR, no m/r/g, 1 +ve l/e edema GI/ABDOMEN: soft, non tender, BS+, no inguinal adenopathy MUSCULO: normal ROM, no joint swelling SKIN: no rash, warm, dry IMAGING: XMBS 06/20/13: Delayed triggering of [...] is well as other inflammatory infectious alveolitis/process. TTE 04/12/13: LVEF >70%. LA mildly dilated. [...] rest at RA she was around 94%. : FEV1/FVC 57, FVC 2.79 (97%), FEV1 1.59 (72%), Dsb 10.12 (50%) After walking 300 ft her O2 sat was 88% on 2L, another 100 ft on 3L her O2 sat was 86%, followed by4L with O2 sat of 95%. IgG 550 (06/14/13) IgG 618 (11/30/12) Assessment and Plan: 1. EMS DRIVER: patient seen and examined, her complex clinical course as detailed above. Her recurrent hospital admission for SOB can not be explained by EMS DRIVER itself. Some of it recently does have to do withnew 7th. rib fracture (right) with associated pleural effusion and atelectasis tipping her tenuous balance off. Also, sedative medications like Vicodin/Ativan can make her sleepy making her a substrate for aspiration with oropharyngeal dysphagia. All these very well place her at a high risk for compromised breathing alone/combination. She does have lower 1/3 crackles b/l and lower extremity edemawith no clearly identifiable cause (negative cardiac work up with preserved structure, LVEF and no pHTN). She has been evaluated for sleep apnea and has been seemingly normal per patient. Objectivelyshe is using 2L of oxygen at rest and 4L on exertion. Overall for now she is hanging in with what appears to be far from her baseline. As per plan she is to continue with Prednisone 20 mg q day with Bactrim and other prophylactic therapy. She is to follow aspiration precautions and minimize use of sedative medications for reasons discussed above. We will also discuss it with ID in regards to her persistent low IgG levels and possible recurrent infections. For this I will place a consult for ID to be seen when she is due to be seen in pulmonary clinic next. 2. COPD/Emphysema: mild obstruction with moderte impairment in diffusion per PFT done earlier today. Continue current therapy i.e. Advair, Spiriva, and Duoneb prn (for now using 3-4/day). Decline in diffusion seems likely due to a combination of #1 and COPD. 3. ?VIVIENNE: Overnight pulse oxymetry done by PCP showed in past showed dipping of oxygen saturation <90% as per patient. She does snore at night,does have a thick neck, is fatigued during day, and does have HTN. She did have a sleep study per patient since seen the last time. I do not have a reportavailable, but per patient she was not told to use BiPAP at night time. She however might need BiPAP at night time. 4. Hypoxemia: likely secondary to #1 and #2. TTE done at OSH and did not show any evidence of pHTN.Goal oxygen saturation >88% at all times. 5. Vaccination: last flu shot was in Dec 2012. She mentioned she had a pneumonia shot once before.She will be due for another pneumonia shot at age 66 yrs. She was seen along with her sister and significant other. She was encouraged to call with any questions or concerns as they arise. We will follow her up in 4 weeks. Patient was seen and discussed with Dr De Leon. documented in this encounter Plan of Treatment Scheduled Referrals Name Type Priority Associated Diagnoses Order Schedule Referral to Infectious Disease and [facility] Outpatient Referral Routine Bacterial pneumonia, unspecified IgG deficiency Ordered: 06/20/2013 documented as of this encounter Visit Diagnoses Diagnosis Bacterial pneumonia, unspecified IgG deficiency Other selective immunoglobulin deficiencies documented in this encounter Care Teams Horseshoer Relationship Specialty Start Date End Date Nayana Blankenship MD [address] [place] [address] PCP - General 03/09/10 documented as of this encounter
--- OUTSIDE RECORDS SUMMARY | 2023-12-15 06:16 | XMS_ITS | Encounter Summary ---
Author Organization [facility] [place] [address] Care Team Providers Care Puncher Name Role Phone Nayana Blankenship MD Primary Care Provider [phone] Encounter Details Date Type Department Care Team (Late st Contact Info) Description 05/10/2013 External Results XRay at [address] [place] [address] Provider, Scanning Social History Tobacco Use Types Packs/Day Years [...] Procedure Name Priority Date/Time Associated Diagnosis Comments DIAGNOSTIC RADIOLOGY SCAN Routine 04/01/2013 DIAGNOSTIC RADIOLOGY SCAN Routine 03/30/2013 documented in this encounter Results * Scan Doc: Diagnostic Radiology (04/01/2013) Anatomical Region Laterality Modality Other Scanning Provider MEDIA MGR SCAN EXT O RDR/RSLT * Scan Doc: Diagnostic Radiology (03/30/2013) Anatomical Region Laterality Modality Other Scanning Provider MEDIA MGR SCAN EXT O RDR/RSLT documented in this encounter Visit Diagnoses Not on filedocumented in this encounter Care Teams Puncher Relationship Specialty Start Date End Date Nayana Blankenship MD [address] [place] [address] PCP - General 03/09/10 documented as of this encounter
--- OUTSIDE RECORDS SUMMARY | 2023-12-15 06:16 | XMS_ITS | Encounter Summary ---
Author Organization [facility] Address [facility] [place] [address] Care Team Providers Care Electronic Publisher Name Role Phone Nayana Blankenship MD Primary Care Provider [phone] Encounter Details Date Type Department Care Team (Late st Contact Info) Description 06/12/2013 External Results XRay at [address] [place] [address] Provider, Scanning Social History Tobacco Use Types [...] Associated Diagnosis Comments DIAGNOSTIC RADIOLOGY SCAN Routine 06/03/2013 documented in this encounter Results * Scan Doc: Diagnostic Radiology (06/03/2013) Anatomical Region Laterality Modality Other Scanning Provider MEDIA MGR SCAN EXT O RDR/RSLT documented in this encounter Visit Diagnoses Not on filedocumented in this encounter Care Teams Electronic Publisher Relationship Specialty Start Date End Date Nayana Blankenship MD [address] [place], [place] [address] PCP - General 03/09/10 documented as of this encounter
--- OUTSIDE RECORDS SUMMARY | 2023-12-15 06:16 | XMS_ITS | Encounter Summary ---
Author Organization [facility] [place] [address] Care Team Providers Care Armhole Presser Name Role Phone Nayana Blankenship MD Primary Care Provider [phone] Reason for Visit * Reason Onset Date Comments Follow-up 04/01/2013 Encounter Details Date Type Department Care Team (Late st Contact Info) Description 04/01/2013 Telephone [place] [id number] Parmjit Nolasco, RN Follow-up Social History Tobacco [...] Telephone Encounter - Parmjit Nolasco, RN - 04/01/2013 2:20 PM EST Patient's caregiver calling stating that patient is back up at [facility] with pneumonia again. Caregiver would like to get in contact with Pulmonary provider for questions and update. Will forward. documented in this encounter Plan of Treatment Not on file documented as of this encounter Visit Diagnoses Not on filedocumented in this encounter Care Teams Armhole Presser Relationship Specialty Start Date End Date Nayana Blankenship MD [address] [place] [address] PCP - General 03/09/10 documented as of this encounter
--- OUTSIDE RECORDS SUMMARY | 2023-12-15 06:16 | XMS_ITS | Encounter Summary ---
Author Organization Formerly [facility] Address [facility] [place] [address] Care Team Providers Care Shook Machine Operator Name Role Phone Nayana Blankenship MD Primary Care Provider [phone] Encounter Details Date Type Department Care Team (Late st Contact Info) Description 06/06/2013 Orders [place] [address] Jose Lombardi MD [facility] [place] [address] Social History Tobacco Use Types Packs/Day Years [...] Diagnosis Comments FILM LIBRARY STORAGE ONLY DX SHOULDER Routine 06/06/2013 7:19 AM EST documented in this encounter Results * Film Library- Storage only DX Shoulder (06/06/2013 7:19 AM EST) Anatomical Region Laterality Modality Other 06/06/2013 7:19 AM EST Narrative 07/17/2014 7:24 AM EDT This is a Non-reportable exam Procedure Note HAM, UNSIGNED REPORT - 07/17/2014 This is a Non-reportable exam Jose Lombardi MD [facility] [place] FILM LIBRARY ORD ERABLES documented in this encounter Visit Diagnoses Not on filedocumented in this encounter Care Teams Shook Machine Operator Relationship Specialty Start Date End Date Nayana Blankenship MD [address] [place] [address] PCP - General 03/09/10 documented as of this encounter
--- OUTSIDE RECORDS SUMMARY | 2023-12-15 06:16 | XMS_ITS | Encounter Summary ---
Author Organization [facility] Address [facility] [place] [address] Care Team Providers Care Print Production Coordinator Name Role Phone Nayana Newberry MD Primary Care Provider [phone] Reason for Visit * Reason Comments Other Palliative Care Encounter Details Date Type Department Care Team (Late st Contact Info) Description 09/12/2013 3:15 PM EDT Office Visit Palliative [place] [address] Jose R White MD [facility] [place] [address] MEZA (dyspnea on exertion); Low back pain; Palliative care encounter Discharge Disposition: Home Social [...] as of this encounter Progress Notes * Jose R White MD - 09/12/2013 3:22 PM EDT Outpatient Palliative Medicine Initial Consult Patient: Kyleigh Caballero : 1950 Date: 09/12/2013 Referring Physician: Primary Care Provider: NAYANA NEWBERRY MD , None ID: Kyleigh Caballero is a 63 y.o. 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 The Palliative Medicine team is asked by Dr. Susan De Leon to consult for assistance with pain management and goals of care. The patient is accompanied by her significant other Teo at this visit in . HPI: She has been hospitalized for respiratory issues at least once a year for 10 years, and per Teo monthly since January 2013, with several ICU stays and ventilation of up to 2 weeks. She has had COPD for several years, but the severity of her COPD is unclear, given intercurrent recerrent pneumonias and SHERIFFS OFFICER. Extensive workup has not revealed a unifying pulmonary diagnosis. She has recurrent infections, with strep milleri pneumonia in 02/2011 s/p decortication, PNA in 06/2012 s/p a fall. Around August 2012 she was treated with antibiotics for sinus infections. In October she had a chest CT in [place], [place], showing emphysema and ground glass opacities. She was admitted to [facility] in November for further evaluation of SOB/hemoptysis from 11/15/12-11/20/12. She was treated for COPDexacerbation and CAP. Blood and sputum cultures were [...] tinged sputum - no radha bright red blo od). She also reported some dull achy chest pain that did not radiate and was reproducible on chestwall palpation.This was coincident with a reduction in her steroid dose, which was increased again.It was thought that she likely has cryptogenic organizing pneumonia (SHERIFFS OFFICER). On a follow up telephoneconversation her chest tightness significantly improved together with no more gaby colored sputum on higher dose steroid. She was at again [facility] for RLL pneumonia in February 2013. On [...] 03/30/13. She has had several readmissions to [facility] for respiratory events, thought to be pneumonia. She was started on 30 mg of Prednisone for 2 months for SHERIFFS OFFICER when seen in January 2013. At that [...] worse during her most recent hospitalization at [facility]. She was started on MSContin, and spent 3 weeks in rehab following her hospitalization. She is now back home, walking a little more every day. She is not sure why she is here today. After hearing about what palliative care does, she said she would most like her back pain treated. Teo says he has heard that Palliative Care is a useful program for hospitalized patients, but doesn't believe it is available near their home or at [facility]. His primary interest is in having palliative care available if she is hospitalized at [facility] again. They live in the [facility], [place] [address] [facility]. They come to [facility] only to see Dr. De Leon, with visits every 2-3 months. Both agree that more frequent visits would be a significant burden. PMH includes hypertension, anxiety/depression, OCD, PTSD, h/o auditory hallucinations, and hepatitis C. UNDERSTANDING OF ILLNESS: She understands that she has a serious pulmonary illness, which causes recurrent episodes of shortness of breath, fevers, cough and sputum. She isn't sure exactly what it is. She knows she has been hospitalized many times and been critically ill many times, but doesn't remember most of her hospitalizations. She believes she will get stronger and better with time and exercise. SOCIAL CONTEXT: She lives with Teo in the [facility] in [place], [place]. 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 She has 3 children. EMOTIONAL HX: She says she is not distressed by her recurrent hospitalizations, and is looking forward to doing more walking as she continues her recovery. She relies on Teo for support during her illness and they make decisions together. Teo let her do most of the talking at this visit, filling in historical details when she left themout, but not commenting much on quality of life, goals of care, or the emotional burden of her illness. SPIRITUAL HX (not explored at this visit): H = hope, meaning in life: O = organized jain: P = personal spiritual practice: E = effect of spiritual beliefs on health care: ADVANCE DIRECTIVES: Not on file in [facility]. Teo says they are completed and they have them at home, and can bring them to be scanned at a subsequent visit. GOALS OF CARE: She wants to get [...] make in the moment. ROS: Positive for MEZA, limited endurance, cough, clear sputum, low back pain and sciatica. PMH: PMH includes hypertension, anxiety/depression, OCD, PTSD, h/o auditory hallucinations, and hepatitis C. MEDICATIONS: Current Outpatient Prescriptions on File Prior [...] ??? [DISCONTINUED] DICLOFENAC SODIUM/MISOPROSTOL (ARTHROTEC 50 ORAL) ALLERGIES: Allergies Allergen Reactions ??? Alendronate Sodium [...] NIGHTMARES, CIS - NIGHTMARES, CIS - NIGHTMARES FHX: family history includes Coronary Artery Disease in her brother, father, mother, and sister and Myocardial Infarction (age of onset:62) in her father. SHX: History Social History ??? Marital Status: Spouse [...] No narrative on file PHYSICAL EXAMINATION Vitals 09/12/13 Weight - Scale 92.806 kg (204 lb 9.6 oz) Height 157.5 cm (5' 2) BSA (Calculated - sq m) 2.01 sq meters BMI (Calculated) 37.5 Temp 36.5 ??C (97.7 ??F) Temp Source Oral BP 117/47 mmHg SpO2 99 % [1-2 liters] She is awake, alert, oriented, and appears comfortable seated in a straight chair, wearing a nasal cannula. She relies on Teo to provide the details of her history. She speaks in short sentences butdoes not pause for breath. No pursed lip breathing. Skin color is good. Gait is unremarkable. LABS: Recent Results (from the past 72 hour(s)) IMMUNOGLOBULINS, QUANTITATIVE Component Value Range IgG 647 (*) 700 - 1600 mg/dL IgA 99 70 - 400 mg/dL IgM 53 40 - 230 mg/dL IMAGING: No recent imaging. ASSESSMENT/ RECOMMENDATIONS: Kyleigh Caballero is a delightful 63 yo woman with complex pulmonary problems including COPD, SHERIFFS OFFICER, and recurrent pneumonia, and chronic back pain now requiring opioids. Her back pain is chronic by history and not related to her pulmonary illness. She lives quite a distance from [facility] and could not attend appointments every 2-4 weeks, as would be appropriate if we were to take on pain management of herback pain. She is being treated now for her pain by her PCP, Dr. Nayana Newberry. She appears to have limited insight into her illness, with fairly high expectations for recovery and improvement, and no concerns about quality of life with recurrent hospitalizations. Teo was quietat this visit, but I suspect he has a more nuanced view of her situation than she does. Both Kyleigh and Teo were interested in ongoing contact with Palliative Care, as long as it didn'tinvolve extra trips to [place]. If palliative care were available to them nearer home, they would be interested in that, and they certainly are interested in palliative care consultation during her next inpatient stay, for symptom management and decision support. I spoke with Dr. Newberry the next morning, and she will continue to follow Ms. Caballero for pain management. The Palliative Care service is available as a resource to her for pain management questions. There may be home palliative care services available in their home area, although it's unclear if she would be able to access them when not homebound. I will follow up on this. Follow-Up: At the next pulmonary appointment - they would prefer that I attend the appointment with them if possible. Thank you for this consultation. The palliative care team will follow the patient and family with you. I reviewed all pertinent portions of the medical record including notes, and results of studies. 20 minutes of this 20 minutes visit spent counseling patient & family regarding role of palliative care, care coordination, and medical decision making. JOSE R WHITE MD documented in this encounter Plan of Treatment Not on file documented as of this encounter Visit Diagnoses Diagnosis MEZA (dyspnea on exertion) Other dyspnea and respiratory abnormality Low back pain Lumbago Palliative care encounter Encounter for palliative care documented in this encounter Care Teams Print Production Coordinator Relationship Specialty Start Date End Date Nayana Newberry MD [address] [place] [address] PCP - General 03/09/10 documented as of this encounter
--- OUTSIDE RECORDS SUMMARY | 2023-12-15 06:16 | XMS_ITS | Encounter Summary ---
Author [facility] Address [facility] [place] [address] Care Team Providers Care Statistical Geneticist Name Role Phone Nayana Blankenship MD Primary Care Provider [phone] Reason for Visit * Reason Comments Follow-up Encounter Details Date Type Department Care Team (Late st Contact Info) Description 05/01/2013 9:45 AM EST Follow-[place] [address] Andrzej Chapman MD [facility] [place] [address] SOB (shortness of breath) (Primary Dx) Discharge [...] Sign Reading Time Taken Comments Blood Pressure 120/71 05/01/2013 10:36 AM EST Pulse 103 05/01/2013 10:36 AM EST Temperature - - Respiratory Rate 24 05/01/2013 10:36 AM EST Oxygen Saturation 96% 05/01/2013 10:36 AM EST Inhaled Oxygen Concentration - - Weight 97.1 kg (214 lb) 05/01/2013 10:36 AM EST Height 154.7 cm (5' 0.9) 05/01/2013 10:36 AM ES T Body Mass Index 40.57 05/01/2013 10:36 AM EST documented in this encounter Progress Notes * Wm De Leon MD - 05/02/2013 9:55 AM EST I discussed this case with Dr. Chapman and then with the patient. 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 We will increaseher Prednisone to 30mg and continue to understand her swallowing difficulties. I agree with Dr. Chapman's note. 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 Briefly, she has a history of COPD (on 2L supplemental O2), strep milleri pneumonia in 02/2011 s/p decortication, PNA in 06/2012 s/p a fall, hypertension, anxiety/depression, and hepatitis C. She has a history of being hospitalizedat least once a year for the last 10 years for respiratory issues. She was admitted to [facility] in November after being transferred from an OSH for further evaluation of SOB/hemoptysis from 11/15/12-11/20/12. Prior to the current admission she was treated with couple of courses of antibiotics for a sinus infection followed by SOB starting around August of 2012. She however continued to feel SOB for she was seen in ER at [facility] around mid October. A chest CT done at that time showed emphysema with b/l ground glass opacities. She also had a couple of days of hemoptysis at the end of October. She was than transferred to [facility] for further work up and management. During her hospital course she was treated for COPD exacerbation w/ methylprednisone and duonebs. She also received Ceftriaxone and azithromycinfor CAP. Blood and sputum cultures were normal and viral DFA and Legionella Ag were negative. Etiologies considered for her presentation were Jass's/Granulomatosis Polyangitiitis (GPA), Microscopic Polyangiitis (MPA), Churg Laura, Goodpasture's, RPGN, Lupus, Hypersensitivity pneumonitis. Howeve r, ANGIE, cANCA, pANCA, MPO, Pr3 and Hypersensitivity [...] her steroid dose was increased to 30 mgto see if this relieves her symptoms. 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 On a follow up telephone conversation her chest tightness significantly improved together with no more gaby colored sputum on higher dose steroid. She was at [facility] for RLL pneumonia prior to the last office visit on 03/26/13. On that she did have a leukocytosis of 22k and was saturating 98% at 3L NC. She did well during her hospital stay with resolution of leukocytosis (8.5k at discharge) and her O2 requirement down to baseline at 2L NC. On discharge, she was continued on doxycycline, and her ceftriaxone was switched to cefpodoxime, both for7 more days. When seen last following discharge from [facility] she was again on outpatient course of Levaquin per her PCP. Interval History: Since last see she again ended up in hospital ([facility]) with LLL pneumonia this time kezese70/14/13. She was also noted to be hypoxic with a leukocytosis (~25k).Talking to her caregiver patient seems to cough while eating at times and also eats sometimes laying down in bed. I was very suspicious of her having recurrent aspiration events. When I brought up this thought the caregiver did mention that the patient herself has also expressed that the food seems to be be going in into her lungs. At that time I requested Dr Knox at [facility] to arrange for swallow evaluation before she was discharged home. Since discharge from the hospital. Since she was discharged home from [facility] she has a gain been treated with outpatient course of azithromycin x 10 days for fever and SOB. Following therecent treatment course talking to her caregiver she continued to have a hard time breathing along with worsening hypoxemia. She was therefore scheduled for an earlier visit to be seen today. When seen today she complains of SOB on exertion at times (like bending over, changing clothes, showers, etc). She continues to cough with white phlegm. She does complain of chest tightness all the time for few weeks. She does have nasal congestion, +ve post nasal drip, no ear pain/pressure and no sore throat. She denies any fever/chills than mentioned above. She denies any sick contacts or recent travel. Her appetite is little bit down and energy level has been down as well. She does complain of left shoulder after pulling up on bar while in hospital at [facility]. The pain is constant in nature, sharp in nature, and is 7/10 in severity. It is helped by ice and topical pain medications. She isusing oxygen at 2L on rest and 4L on ambulation at home. This is the same as when seen the last time on 03/26/13 but worse when compared to 01/2013. Overall however fore the last 2 days she is doing better than before. 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 Prior tothat she was on 25 mg for a month and than 20 mg for a month. She denies any confusion or hallucinations. She is following up with her PCP who is managing her BGM. She has been sleeping well overnight. She has history of anxiety which has been stable on er medications. She also does have a history of GERD which is being helped by the PPi BID. 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 diaZEPam (VALIUM) 5 mg tablet Take [...] 1 Tablet(s), PO, Three times daily ??? levofloxacin (LEVAQUIN) 750 mg tablet Take 750 mg by mouth daily. ??? sulfamethoxazole-trimethoprim (BACTRIM DS) 800-160 mg per tablet Take 1 tablet by mouth every other day. 30 tablet 3 ??? doxycycline (VIBRA-TABS) 100 mg tablet Take 1 tablet by mouth 2 times daily. 14 tablet 0 ??? predniSONE (DELTASONE) 20 mg tablet Take [...] needed. 60 mL 0 Last reviewed on 05/01/2013 10:41 AM by Alba Byrne LPN Adverse Drug Reactions: [...] CIS - NIGHTMARES Review of Systems: As mentioned above. Physical Examination: BP 120/71 Pulse 103 Resp 24 Ht 154.7 cm (5' 0.9) Wt 97.07 kg (214 lb) BMI 40.57 kg/m2 SpO2 96% GENERAL APPEARANCE: sitting in chair comfortably, able to talk in full sentences HEENT: NC and AT, ear/nose symmetrical and non tender, mild nasal erythema with some crusted blood on left NECK: supple, no cervical lymphadenopathy CHEST: CTA b/l HEART: S1 S2, RRR, no m/r/g, trace l/e edema GI/ABDOMEN: soft, non tender, BS+, no inguinal adenopathy MUSCULO: normal ROM, no joint swelling SKIN: no rash, warm, dry IMAGING: CXR 02/24/13: Increased opacity in the right [...] followed by4L with O2 sat of 95%. Assessment and Plan: 1. 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 She was on 30 mg for 2 months when seen in January 2013. At that time she was tapered down to 25 mg for amonth followed by 20 mg for a month to be followed by 15 mg starting 03/17/13 which she continues judah on. Overall her course has worsened since tapering of steroids with repeated hospitalizations for SOB thought to be due to PNA. Swallow study done as detailed above. She does not know very well what was she told to do when swallow last eval was done recently on 04/04/13 at OSH. Since she lives far away from [facility] she is interested to get back to the speech therapist at [facility]. It will be very important for her to know very well what should she do to prevent recurrent aspirations events leading to PNA which can further worsen her lung disease. She will try to be seen by speech therapist again as an outpatient prior to thenext visit with us in a month. We will do CXR today at [facility] which has already been ordered. CD for CXR done at OSH will be mailed to us to be compared with imaging we have in [facility] system. Also, with worsening clinical course and diffusion on PFT we will increased her Prednisone to 30 mg once again. She is to restart using her Bactrim qod along with continuing to use Calcium and Vitamin D supplements. She was encouraged to callwith any questions or concerns as they arise. 2. COPD: mild obstruction with moderte impairment in diffusion per PFT done earlier today. Continuecurrent therapy i.e. Advair, Spiriva, and Duoneb prn (on an average 2/day). Decline in diffusion seems likely due to #1 than worsening of COPD. 3. ?VIVIENNE: Overnight pulse oxymetry done by PCP showed in past showed dipping of oxygen saturation <90% as per patient. She does snore at night,does have a thick neck, is fatigued during day, and does have HTN. She is scheduled for a sleep study tomorrow because of being in hospital when originally schedule around roxie time last year and once before that. 4. Hypoxia: likely secondary to #1 and #2. TTE done at OSH and did not show any evidence of Pulmonary HTN. Goal oxygen saturation >88% at all times. 5. Rhinits: she is continuing to having nasal congestion with post nasal drip. She is using Nasonexand Claritin/Zyrtec on daily basis. She has Netipot at home which she has used in past and will start using again on daily basis. 6. Vaccination: last flu shot was in Dec 2012. She mentioned she had a pneumonia shot once before.She will be due for another pneumonia shot at age 66. We will follow her up in 4 weeks. Patient was seen and discussed with Dr De Leon. 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 Technique Findings Resolution of previously noted right mid to lower lung airspace consolidation. No acute disease. ??No pleural effusions. ??No congestive heart failure. Soft tissue and bony structures are stable. 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 Technique Findings Resolution of previously noted right mid to lower lung airspaceconsolidation. No acute disease. No pleural effusions. No congestive heart failure. Soft tissue and bony structures are stable. Impression H Susan De Leon MD IMG DX ORDERABLES documented in this encounter Visit Diagnoses Diagnosis SOB (shortness of breath)- Primary Shortness of breath SOB (shortness of breath) Shortness of breath documented in this encounter Care Teams Statistical Geneticist Relationship Specialty Start Date End Date Nayana Blankenship MD [address] [place] [address] PCP - General 03/09/10 documented as of this encounter
--- OUTSIDE RECORDS SUMMARY | 2023-12-15 06:16 | XMS_ITS | Encounter Summary ---
Author Organization [facility] Address [facility] [place] [address] Care Team Providers Care Quality Improvement Analyst Name Role Phone Nayana Blankenship MD Primary Care Provider [phone] Encounter Details Date Type Department Care Team (Late st Contact Info) Description 06/03/2013 [place] [address] Boaz Rowell MD [facility] [place] [address] Social History Tobacco Use Types Packs/Day Years [...] Library- Storage only CT Chest Imaging Routine 06/03/2013 1:17 AM EST documented as of this encounter Visit Diagnoses Not on filedocumented in this encounter Care Teams Quality Improvement Analyst Relationship Specialty Start Date End Date Nayana Blankenship MD [address] [place], [place] [id number] PCP - General 03/09/10 documented as of this encounter
--- OUTSIDE RECORDS SUMMARY | 2023-12-15 06:16 | XMS_ITS | Encounter Summary ---
Author Organization [facility] Address [facility] [place] [address] Care Team Providers Care Die Maker Stamping Name Role Phone Nayana Blankenship MD Primary Care Provider Encounter Details Date Type Department Care Team (Late st Contact Info) Description 09/24/2013 [place] [address] Wm De Leon MD [facility] [place] [address] Social History Tobacco Use Types Packs/Day Years [...] Telephone Encounter - Andrzej Chapman MD - 09/24/2013 2:22 PM EDT I called and spoke with patient since she was recently admitted again to [facility] for seemingly PNA. She was discharged from there around 09/20/13. I have reviewed the records from OSH which areto be scanned in [facility]. At this time she is doing well using 4L O2 on exertion and on Prednisone dose. She was told to follow up at her [place] [facility] [place] documented in this encounter Plan of Treatment Not on file documented as of this encounter Visit Diagnoses Not on filedocumented in this encounter Care Teams Die Maker Stamping Relationship Specialty Start Date End Date Nayana Blankenship MD [address] [place] [address] PCP - General 03/09/10 documented as of this encounter
--- OUTSIDE RECORDS SUMMARY | 2023-12-15 06:16 | XMS_ITS | Encounter Summary ---
Author Organization [facility] Address [facility] [place] [address] Care Team Providers Care Solder Deposit Operator Name Role Phone Nayana Blankenship MD Primary Care Provider [phone] Encounter Details Date Type Department Care Team (Late st Contact Info) Description 05/01/2013 [place] [address] Wm De Leon MD [facility] [place] [address] SOB (shortness of breath) (Primary Dx) Social History Tobacco Use Types [...] capacity, suggestive of emphysema. Procedure Note Andreas Andrews MD - 05/01/2013 6:32 PM EST FVC is normal. FEV1 and FEV/FVC are reduced. Diffusing capacity isreduced. Oxygen saturation on 2 L decreased significantly whilewalking. Impression: mild obstructive defect with decreased diffusing capacity,suggestive of emphysema. H Susan De Leon MD PFT ORDERABLES documented in this encounter Visit Diagnoses Diagnosis SOB (shortness of breath)- Primary Shortness of breath SOB (shortness of breath)- Primary Shortness of breath documented in this encounter Care Teams Solder Deposit Operator Relationship Specialty Start Date End Date Nayana Blankenship MD [address] [place] [id number] PCP - General 03/09/10 documented as of this encounter
--- OUTSIDE RECORDS SUMMARY | 2023-12-15 06:16 | XMS_ITS | Encounter Summary ---
Author Organization [facility] Address [facility] [place] [address] Care Team Providers Care Water Taxi Captain Name Role Phone Nayana Blankenship MD Primary Care Provider [phone] Encounter Details Date Type Department Care Team (Late st Contact Info) Description 05/27/2014 Orders [place] [address] Vera White MD [facility] [place] [address] Social History Tobacco Use Types Packs/Day Years [...] Diagnosis Comments FILM LIBRARY STORAGE ONLY CT UPPER EXTREMITY Routine 05/27/2014 8:15 AM EST documented in this encounter Results * Film Library- Storage only CT Upper Extremity (05/27/2014 8:15 AM EST) Anatomical Region Laterality Modality Shoulder, Arm, Elbow, Forearm, Wrist, Hand Other 05/27/2014 8:15 AM EST Narrative 06/02/2014 7:17 PM EST This is a Non-reportable exam Procedure Note HAM, UNSIGNED REPORT - 06/02/2014 This is a Non-reportable exam Vera White MD [facility] FILM LIBRARY ORD ERABLES documented in this encounter Visit Diagnoses Not on filedocumented in this encounter Care Teams Water Taxi Captain Relationship Specialty Start Date End Date Nayana Blankenship MD [address] [place] [address] PCP - General 03/09/10 documented as of this encounter
--- OUTSIDE RECORDS SUMMARY | 2023-12-15 06:16 | XMS_ITS | Encounter Summary ---
Author Organization [facility] [place] [address] Care Team Providers Care Fibre Optics Jointer Name Role Phone Nayana Blankenship MD Primary Care Provider [phone] Encounter Details Date Type Department Care Team (Late st Contact Info) Description 04/03/2014 [place] [address] Srinivasan Salas MD [facility] [place] [address] Social History Tobacco Use Types Packs/Day Years [...] encounter Miscellaneous Notes * Telephone Encounter - Srinivasan Salas - 04/03/2014 7:55 AM EST Received results of EGD done 03/19/14 Probably ongoing aspiration (thought to be multifactorial - body habitus, narcotic use leading to poor gastric emptying) Gi suggesting 24hr pH monitoring Pathology of biopsies is pending documented in this encounter Plan of Treatment Not on file documented as of this encounter Visit Diagnoses Not on filedocumented in this encounter Care Teams Fibre Optics Jointer Relationship Specialty Start Date End Date Nayana Blankneship MD [address] [place] [address] PCP - General 03/09/10 documented as of this encounter
--- OUTSIDE RECORDS SUMMARY | 2023-12-15 06:16 | XMS_ITS | Encounter Summary ---
Author Organization [facility] Address [facility] [place] [address] Care Team Providers Care Distilling Department Supervisor Name Role Phone Nayana Blankenship MD Primary Care Provider [phone] Encounter Details Date Type Department Care Team (Late st Contact Info) Description 09/12/2013 Orders [place] [address] Wm De Leon MD [facility] [place] [address] ILD (interstitial lung disease) (Primary Dx) Social History Tobacco Use [...] as of this encounter Visit Diagnoses Diagnosis ILD (interstitial lung disease)- Primary Postinflammatory pulmonary fibrosis documented in this encounter Care Teams Distilling Department Supervisor Relationship Specialty Start Date End Date Nayana Blankenship MD [address] [place] [address] PCP - General 03/09/10 documented as of this encounter
--- OUTSIDE RECORDS SUMMARY | 2023-12-15 06:16 | XMS_ITS | Encounter Summary ---
Author Organization [facility] Address [facility] [place] [address] Care Team Providers Care Practical Nursing Instructor Name Role Phone Nayana Blankenship MD Primary Care Provider [phone] Encounter Details Date Type Department Care Team (Late st Contact Info) Description 06/20/2013 Orders [place] [address] Wm De Leon MD [facility] [place] [address] Hypoxemia (Primary Dx) Social History Tobacco Use Types [...] this encounter Visit Diagnoses Diagnosis Hypoxemia- Primary Hypoxemia- Primary documented in this encounter Care Teams Practical Nursing Instructor Relationship Specialty Start Date End Date Nayana Blankenship MD [address] [place] [id number] PCP - General 03/09/10 documented as of this encounter
--- OUTSIDE RECORDS SUMMARY | 2023-12-15 06:16 | XMS_ITS | Encounter Summary ---
Author Organization [facility] Address [facility] [place] [address] Care Team Providers Care Clinical Systems Educator Name Role Phone Nayana Blankenship MD Primary Care Provider [phone] Encounter Details Date Type Department Care Team (Late st Contact Info) Description 05/22/2014 [place] [address] Jose Lombardi MD [facility] [place] [address] Social History Tobacco Use Types Packs/Day Years [...] FILM LIBRARY STORAGE ONLY DX SHOULDER Routine 05/22/2014 7:17 AM EST documented in this encounter Results * Film Library- Storage only DX Shoulder (05/22/2014 7:17 AM EST) Anatomical Region Laterality Modality Other 05/22/2014 7:17 AM EST Narrative 07/17/2014 7:22 AM EDT This is a Non-reportable exam Procedure Note HAM, UNSIGNED REPORT - 07/17/2014 This is a Non-reportable exam Jose Lombardi MD [facility] [place] FILM LIBRARY ORD ERABLES documented in this encounter Visit Diagnoses Not on filedocumented in this encounter Care Teams Clinical Systems Educator Relationship Specialty Start Date End Date Nayana Blankenship MD [address] [place] [address] PCP - General 03/09/10 documented as of this encounter
--- OUTSIDE RECORDS SUMMARY | 2023-12-15 06:16 | XMS_ITS | Encounter Summary ---
Author Organization [facility] Address [facility] [place] [address] Care Team Providers Care Hemmer Lockstitch Name Role Phone Nayana Blankenship MD Primary Care Provider Encounter Details Date Type Department Care Team (Latest Contact Info) Description 05/01/2013 11:42 AM EST - 05/01/2013 11:59 PM EST Hospital Encounter XRay at [address] [place] [address] SOB (shortness of breath) Social History Tobacco [...] 09/13/19 14 documented as of this encounter Plan of Treatment Not on file documented as of this encounter Procedures Procedure Name Priority Date/Time Associated Diagnosis Comments XR CHEST PA AND LATERAL Routine 05/01/2013 11:53 AM EST SOB (shortness of breath) documented in this encounter Results * XR chest routine PA & lateral (05/01/2013 11:53 AM EST) Anatomical Region Laterality Modality Chest N/A Radiographic Nan ging 05/01/2013 11:5 3 AM EST Narrative 05/01/2013 1:22 PM EST Examination CHEST ROUTINE 2 VIEWS Clinical History SOB with h/o GLOBAL CTO and COPD Comparison February 24, 2013. Technique Findings Resolution of previously noted right mid to lower lung airspace consolidation. No acute disease. ??No pleural effusions. ??No congestive heart failure. Soft tissue and bony structures are stable. Impression Procedure Note Pete Osullivan MD - 05/01/2013 Examination CHEST ROUTINE 2 VIEWS Clinical History SOB with h/o GLOBAL CTO and COPD Comparison February 24, 2013. Technique Findings Resolution of previously noted right mid to lower lung airspaceconsolidation. No acute disease. No pleural effusions. No congestive heart failure. Soft tissue and bony structures are stable. Impression H Susan De Leon MD IMG DX ORDERABLES documented in this encounter Visit Diagnoses Diagnosis SOB (shortness of breath) Shortness of breath documented in this encounter Care Teams Hemmer Lockstitch Relationship Specialty Start Date End Date Nayana Blankenship MD [address] [place] [address] PCP - General 03/09/10 documented as of this encounter
--- OUTSIDE RECORDS SUMMARY | 2023-12-15 06:16 | XMS_ITS | Encounter Summary ---
Author Organization [facility] Address [facility] [place] [address] Care Team Providers Care Insurance Risk Manager Name Role Phone Nayana Blankenship MD Primary Care Provider [phone] Encounter Details Date Type Department Care Team (Late st Contact Info) Description 02/24/2014 [place] [address] Srinivasan Salas MD [facility] [place] [address] Social History Tobacco Use Types Packs/Day Years [...] filedocumented in this encounter Care Teams Insurance Risk Manager Relationship Specialty Start Date End Date Nayana Blankenship MD [address] [place], [place] [id number] PCP - General 03/09/10 documented as of this encounter
--- OUTSIDE RECORDS SUMMARY | 2023-12-15 06:17 | XMS_ITS | Encounter Summary ---
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 Novelty Name Role Phone Nayana Newberry MD Primary Care Provider [phone] Encounter Details Date Type Department Care Team (Late st Contact Info) Description 11/15/2012 6:03 PM EDT - 11/20/2012 4:38 PM EDT Hospital Encounter [address] [place] [address] Gulshan Rosa MD [facility] [place] [address] Forest Carpio MD [facility] [place] [address] SOB (shortness of breath) (Primary Dx) Discharge Disposition: Home Social History Tobacco Use Types Packs/Day Years Used Date Smoking Tobacco: Never Assessed Alcohol Use Standard Drinks/Week Comments Not Asked 0 (1 standard drink = 0.6 oz pur e alcohol) A few beers a week Sex and Gender Information Value Date Recorded Sex Assigned at Not on file Gender Identity Not on file Sexual Orientation Not on file documented as of this encounter Last Filed Vital Signs Vital Sign Reading Time Taken Comments Blood Pressure 136/88 11/20/2012 11:52 AM EDT Pulse 82 11/20/2012 11:52 AM EDT Temperature 37.3 ??C (99.1 ??F) 11/20/2012 11:52 AM E DT Respiratory Rate 18 11/20/2012 11:52 AM EDT Oxygen Saturation 98% 11/20/2012 11:52 AM EDT Inhaled Oxygen Concentration - - Weight 91.9 kg (202 lb 9.6 oz) 11/16/2012 6:48 A M EDT Height 157.5 cm (5' 2.01) 11/16/2012 6:48 AM ED T Body Mass Index 37.05 11/16/2012 6:48 AM EDT documented in this encounter Discharge Instructions * Patient Instructions* Franklyn Carr MD - 11/19/2012 11:53 AM EDT Instruction after leaving the hospital Why you were hospitalized: COPD exacerbation Call your doctor or seek medical attention if you experience any alarming symptoms: This may include, but is not limited to; chest pain, severe shortness of breath, nausea with vomiting, persistent decreased urinary output, severe pain, new onset weakness/paralysis, severe headache or any other concerning symptoms Activity level: As tolerated, no new restrictions. Diet: No new restrictions Driving: You should not drive if you are taking any opioids/narcotics (oxycodone, etc). Shower/Bath: No new restrictions Home O2: Continue home oxygen Changes in Your Medications: New Medications: You have been prescribed antibiotics: azithromycin 500 mg twice daily and cefpodoxime 200 mg twice daily. Please take these medications daily for 5 days. You have also been prescribed prednisone, please take as directed. Specific instructions related to your condition: Please continue to take your home medications. You have been prescribed azithromycin 500 mg twice daily and cefpodoxime 200 mg twice daily for 5 days, please continue to take these medications for 5 days after discharge. Please take prednisone as prescribed until you follow up with [facility] on December 04 at 3 pm. If your shortness of breath becomes worse or your have increased cough, sputum production, or fevers please seek medical attention or visit your primary care provider. You will need to follow up with your primary care provider on Nov 26 at 1110 am . Follow-Up Appointments Date and Time Provider and Specialty Location December 04 @ 3 pm [facility] Nov 26 @ 11:10 am NAYANA NEWBERRY MD Your Inpatient Doctor(s) at [facility]: Forest Carpio MD Your Primary Care Provider: NAYANA NEWBERRY MD [phone] documented in this encounter Medications at Time [...] 1 Tablet(s), PO, Three times daily 05/14/2010 azithromycin (ZITHROMAX) 500 mg tablet Take 1 tablet by mouth 2 times daily for 5 days. 10 tablet 0 11/20/2012 11/25/2012 cefPODoxime (VANTIN) 200 mg tablet Take 1 tablet by mouth 2 times daily for 5 days. 10 tablet 0 11/20/2012 11/25/2012 predniSONE (DELTASONE) 20 mg tablet Please take 3 tablets po for 4 days; then 2 tablets po for 4 days; then 1 tablet po for 4 days; then 1/2 tablet po for 4 days 30 tablet 0 11/20/2012 12/04/2012 fluticasone-salmeter ol (ADVAIR DISKUS) 500-50 mcg/dose diskus [...] SODIUM/MISOPROSTOL (ARTHROTEC 50 ORAL) 05/14/2010 09/13/19 14 penicillin v potassium (VEETID) 500 mg tablet 500 MG = 1 Tablet(s), PO, Four times daily 05/14/2010 12/04/2012 documented as of this encounter Progress Notes * Ashley Moses - 11/20/2012 4:06 PM EDT Pt. D/c'd home via private vehicle. AVS reviewed by MD. Pt. vebalized understanding of medications and future appointments. PICC line d/c'd. No evidence of bleeding. Dressing. C, D, I. Pt. Had home O2 for ride. * Franklyn Carr MD - 11/20/2012 8:36 AM EDT Inpatient Medicine Progress Note Date of Admission: 11/15/2012 ( Hospital Day 5 days ) Service: Clay phillip, Internal Medicine Responsible Attending: Forest Carpio MD Patient ID: Patient is a 62 y.o. female with a PMH significant for COPD (2 L oxygen dependent), history of smoking, hepatitis C, and HTN presenting with worsening shortness of breath for the past week with cough, hemoptysis, and sputum production. Active problems: -shortness of breath/pneumonia 24 Hour Events/Subjective: - patient is satting well on 2 L nasal cannula oxygen, >95% - she states that she feels better than yesterday. Does still desaturate when trying to go to the restroom - denies any current chest pain or shortness of breath - PT scheduled to work with patient today Inpatient Medications: Scheduled Medications: ??? predniSONE 40 mg Oral BID ??? nystatin 500,000 Units Oral TID ??? esomeprazole 40 mg Oral Daily ??? DISCONTD: methylPREDNISolone sodium succinate (PF) 40 mg Intravenous BID ??? senna-docusate 1 tablet Oral BID ??? busPIRone 15 mg Oral Daily with breakfast ??? busPIRone 30 mg Oral Daily with lunch ??? cefTRIaxone 1 g Intravenous Q24H ??? azithromycin 500 mg Intravenous Q24H ??? polyethylene glycol (MIRALAX)oral powder 17 g Oral Daily ??? diclofenac 75 mg Oral BID ??? amitriptyline 75 mg Oral Nightly ??? amlodipine 10 mg Oral Daily ??? PARoxetine 40 mg Oral Daily ??? simvastatin 20 mg Oral QPM ??? sodium chloride 0.9 % 5 mL Intravenous Q12H ??? ipratropium-albuterol 3 mL Nebulization Q6H DEVANG Continuous infusions: PRN medications: bisacodyl, calcium carbonate, diphenhydrAMINE, acetaminophen, LORazepam, ondansetron, ondansetron, ipratropium-albuterol Vitals: Last value Range last 24 hrs Temperature Temp: 37.3 ??C (99.1 ??F) Temp: [36.7 ??C (98.1 ??F)-37.3 ??C (99.1 ??F)] Heart Rate Heart Rate: 92 Heart Rate: [84-101] Blood Pressure BP: 103/73 mmHg BP: (103-156)/(64-90) Respiratory Rate Resp: 18 Resp: [18-20] SpO2 SpO2: 9 % SpO2: [9 %-98 %] Ins/Outs: I/O last 3 completed shifts: In: 820 [P.O.:820] Out: 2450 [Urine:2450] Intake/Output Summary (Last 24 hours) at 11/20/12 0836 Last data filed at 11/20/12 0822 Gross per 24 hour Intake 880 ml Output 2250 ml Net -1370 ml Patient Vitals for the past 168 hrs: Weight 11/16/12 0648 91.9 kg (202 lb 9.6 oz) 11/16/12 0000 91.9 kg (202 lb 9.6 oz) 11/15/12 1820 91.9 kg (202 lb 9.6 oz) Physical Exam: Gen: NAD, AAOx3. Eating breakfast HEENT: NCAT. EOMI, PERRL, Oropharynx with MMM, CV: RRR, no murmurs or rubs noted. . Radial pulses +2. Lungs: CTAB, good air movement Abd: Soft, non-distended, no tenderness to palpation x4, Normoactive bowel sounds. Ext: No pedal edema. No cyanosis or clubbing Skin: Echymosis on right quintero Neuro/MSK: CN II-XII grossly intact. no focal deficits noted Labs: Recent Labs Basename 11/20/1245511/19/1243611/18/1251711/17/12435 WBC 11.5* 15.2* 16.1* -- HGB 11.1* 10.8* 10.7* -- HCT 34.0 33.0* 32.1* -- PLATELET 265 310 330 -- NEUTROABS -- -- 13.13* 13.35* Recent Labs Basename 11/20/1245511/19/1243611/18/12517 NA 135 135 135 K 4.1 4.0 4.0 CL 98 100 99 CO2 29 27 27 BUN 15 17 15 CREATININE 0.65* 0.60* 0.58* GLUCOSE 166 193 203* Recent Labs Basename 11/20/1245511/19/1243611/18/1251711/15/122011 CALCIUM 8.3* 8.4* 8.4* -- MAGNESIUM -- -- -- 0.91 PHOS -- -- -- 3.5 Recent Labs Basename 11/17/1243511/15/122011 PROT 6.0* 6.6 ALBUMIN 3.7 3.8 AST 15 21 ALT 25 28 ALKPHOS 66 77 BILITOT 0.5 0.5 BILIDIR 0.1 0.1 Other Labs: ESR 40 CRP 68.6 C-ANCA Neg P-ANCA Neg Legionella Neg Viral Panel Neg ANGIE Negative MPO Pending Anti GBM Pending Hypersensitivity Pneum. Pending Microbiology: Blood Culture: NGTD Urine Cx No growth Sputum Culture: Normal respiratory micah Imaging: Re-Read CT Chest 11/15 Impression 1. Underlying upper lobe predominant centrilobular emphysema with interval development of irregular interstitial septal thickening with upper lung zone predominance and developing peripheral honeycombing/fibrotic changes most pronounced in the left upper lobe superior segment left lower lobe. 2. Accompanying patchy ground-glass opacities throughout both lungs, as above. Differential considerations for ground-glass opacities would include hemorrhage is well as other inflammatory infectious alveolitis/process Assessment: Patient is a 62 y.o. female with a PMH significant for COPD (2 L oxygen dependent), history of smoking, hepatitis C, and HTN presenting with worsening shortness of breath for the past week with coughand sputum production. Chest CT showed subacute pulmonary ground glass opacities and fibrosis. Treating for a COPD exacerbation secondary to an atypical infection. Continue supportive nebs, Abx, and steroids. Patient continues to make improvements and is near her baseline regarding shortness of breath. Inflammatory and vasculitis workup has been negative thus far. Pulmonology following patient and recommends follow up as an outpatient in 2 weeks. Plan: Shortness of breath and hemoptysis - continue treatment for COPD exacerbation - continue methylprednisolone 40 mg qdaily , duonebs q 6 hours - continue azithromycin 500 mg q 24 hr and ceftriaxone 1 g h 24 hrs (day 5) - Vasculitis workup in progress, MPO, PR3, AntiGBM, all pending - viral panel negative - hypersensitivity pneumonitis panel pending - Pulmonology plans on seeing patient as an outpatient in 2 weeks, repeat imaging in 6-8 weeks Anxiety/depression - continue amitriptyline 75mg nightly - continue paroxetine 40mg daily - continue ativan - continue buspar Hyperlipidemia - continue simvastatin 20mg every evening HTN - continue amlodipine 10mg qdaily Code Status Full Code Franklyn Carr MD PGY-1, Internal Medicine Team Pager #[phone] * Boaz Painter MD - 11/19/2012 7:43 AM EDT Inpatient Progress Note Service: Pulmonary Responsible Attending: Dr Painter Hospital Day #: Hospital Day 4 days Reason for continued hospitalization: 62 y/o female who presented with shortness of breath accompanied by hemoptysis. Overall since last seen she seems to be doing well. She is afebrile and her oxygen requirements have gone down as well.She continues to cough up some blood which is dark at times and just some red streaks at other. Shehowever thinks her cough, shortness or breath, and hemoptysis has improived from what she came in with on admission. She also did mention that, though she has improved she is still not back to her baseline. Active Ambulatory Problems Diagnosis Date Noted ??? No Active Ambulatory Problems Resolved Ambulatory Problems Diagnosis Date Noted ??? No Resolved Ambulatory Problems Past Medical History Diagnosis Date ??? COPD (chronic obstructive pulmonary disease) ??? Anxiety ??? Depression ??? Hypertension ??? Arthritis ??? GERD (gastroesophageal reflux disease) ??? Hepatitis C Physical Exam: Last Set of Vitals and range of vitals over past 24 hours: Last value Range last 24 hrs Temperature Temp: 37.2 ??C (99 ??F) Temp: [36.3 ??C (97.3 ??F)-37.2 ??C (99 ??F)] Heart Rate Heart Rate: 88 Heart Rate: [78-98] Blood Pressure BP: 151/83 mmHg BP: (134-152)/(65-83) Respiratory Rate Resp: 20 Resp: [16-20] SpO2 SpO2: 99 % SpO2: [91 %-99 %] Physical Exam Constitutional: She is oriented to person, place, and time. No distress. HENT: Head: Normocephalic and atraumatic. Eyes: Conjunctivae normal and EOM are normal. Right eye exhibits no discharge. Neck: Normal range of motion. Lymph node: around the angle of mandible on left. Approx. 1-2 cm in size, +tenderness, firm feeling. Cardiovascular: Normal rate, regular rhythm, normal heart sounds and intact distal pulses. Pulmonary/Chest: Effort normal. She has rales. Crackles lower 1/3 more on right than left on auscultation. Abdominal: Soft. Bowel sounds are normal. Lymphadenopathy: She has cervical adenopathy. Neurological: She is alert and oriented to person, place, and time. Skin: Skin is warm. No erythema. Medications: predniSONE (DELTASONE) tablet 40 mg; bisacodyl (DULCOLAX) suppository 10 mg; nystatin (MYCOSTATIN) 100,000 unit/mL oral suspension 500,000 Units; esomeprazole (NEXIUM) capsule 40 mg; calcium carbonate (TUMS) chewable tablet 500 mg; diphenhydrAMINE (BENADRYL) capsule 25 mg; DISCONTD: methylPREDNISolone sodium succinate (PF) (SOLU-MEDROL) 40 mg/mL injection 40 mg; senna-docusate (PERICOLACE) 8.6-50mg per tablet 1 tablet acetaminophen (TYLENOL) tablet 650 mg; busPIRone (BUSPAR) tablet 15 mg; busPIRone (BUSPAR) tablet 30 mg; LORazepam (ATIVAN) tablet 0.5 mg; cefTRIaxone (ROCEPHIN) 1g in dextrose 5% 50mL; azithromycin (ZITHROMAX) 500 mg in sodium chloride 0.9% 505 mL; polyethylene glycol (MIRALAX) packet 17 g; diclofenac (VOLTAREN) EC tablet 75 mg; amitriptyline (ELAVIL) tablet 75 mg; amlodipine (NORVASC) tablet 10mg; PARoxetine (PAXIL) tablet 40 mg simvastatin (ZOCOR) tablet 20 mg; sodium chloride 0.9 % flush 5 mL; ondansetron (ZOFRAN) tablet 4 mg; ondansetron (ZOFRAN) injection 4 mg; ipratropium-albuterol (DUONEB) 0.5 mg-3 mg(2.5 mg base)/3 mLnebulizer solution 3 mL; ipratropium- albuterol (DUONEB) 0.5 mg-3 mg(2.5 mg base)/3 mL nebulizer solution 3 mL Labs: WBC 12.8 on admission to 15.2 today Hgb 10.5 on admission to 10.8 today P-ANCA negative C-ANCA negative Chemistries have been wnl. Microbiology: Blood culture (11/15-11/19): negative X 2 Respiratory virus antigen panel: negative Legionella urine antigen (11/17): negative LRT culture (11/16-11/18): normal micah Pertinent Radiographic/Diagnostic Results: CT CHEST OSH on admission (2 nd read [place] [facility] from 11[place]: Impression 1. Underlying upper lobe predominant centrilobular emphysema with interval development of irregular interstitial septal thickening with upper lung zone predominance and developing peripheral honeycombing/fibrotic changes most pronounced in the left upper lobe superior segment left lower lobe. 2. Accompanying patchy ground-glass opacities throughout both lungs, as above. Differential considerations for ground-glass opacities would include hemorrhage is well as other inflammatory infectious alveolitis/process. Assessment/Plan : 1. SOB with hemoptysis: Unclear etiology. At this time patient is showing improvement on current treatment with antibiotics and steroids. Her work up so far otherwise i.e. immunologic and cultures have been negative for an infectious or definite immunologic etiology. Her imaging findings are as mentioned above. She continues to be afebrile. Her oxygen requirement is down to her baseline. She doeshave leukocytosis which can very well be due to her steroids. Her Hgb is stable since admission. Hypersensitivity panel ordered over the weekend and awaited with her history of recent exposure to paints. If she continues to do well she will need repeating imaging in 6-8 weeks to follow up on current findings. She should also be up to date with her immunizations i.e. Influenza and pneumococcal. Also with her repeated infections she might will benefit from checking her immunoglobulin levels. At this time will recommend continuing with current care. 2. Lymphadenopathy: tender left cervical lymph adenopathy for about couple of months. In the context of her current infection it will need to be watched. If no resolution it might will need to be biopsied. 3. Hemoptysis - Unclear etiology as also discussed in #1. Improved though still having some dark and some times streaks of bright red blood with phlegm. With her improving SOB and hypoxia along with stable Hgb it will need to watched for at this time with no further intervention. Will follow and make changes as needed. MELANI WARE MD 11/19/2012 I have seen the patient and reviewed the resident's above history and I agree with the details as written. The assessment and plan were formulated in discussion with me and I agree with them as documented. Shortness of breath, probably do to pneumonia as she had leukocytosis and seems to be responding toantibiotics. She also could have a component of volume overload. Given her improvement, I do not see any reason to intervene or change current therapy. I will followup with a repeat CT scan in 6-8 weeks. 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 * Forest Carpio MD - 11/19/2012 7:33 AM EDT Inpatient Medicine Progress Note Date of Admission: 11/15/2012 ( Hospital Day 4 days ) Service: Clay phillip, Internal Medicine Responsible Attending: Forest Carpio MD Patient ID: Patient is a 62 y.o. female with a PMH significant for COPD (2 L oxygen dependent), history of smoking, hepatitis C, and HTN presenting with worsening shortness of breath for the past week with cough, hemoptysis, and sputum production. Active problems: -shortness of breath/pneumonia 24 Hour Events/Subjective: - patient is satting well on 2 L nasal cannula oxygen - pt feeling well, endorses cough still but improved - no new concerns brought up by patient Inpatient Medications: Scheduled Medications: ??? methylPREDNISolone sodium succinate (PF) 40 mg Intravenous BID ??? nystatin 500,000 Units Oral TID ??? esomeprazole 40 mg Oral Daily ??? DISCONTD: methylPREDNISolone sodium succinate (PF) 80 mg Intravenous Daily ??? senna-docusate 1 tablet Oral BID ??? busPIRone 15 mg Oral Daily with breakfast ??? busPIRone 30 mg Oral Daily with lunch ??? cefTRIaxone 1 g Intravenous Q24H ??? azithromycin 500 mg Intravenous Q24H ??? polyethylene glycol (MIRALAX)oral powder 17 g Oral Daily ??? diclofenac 75 mg Oral BID ??? DISCONTD: nystatin 500,000 Units Oral BID ??? amitriptyline 75 mg Oral Nightly ??? amlodipine 10 mg Oral Daily ??? PARoxetine 40 mg Oral Daily ??? simvastatin 20 mg Oral QPM ??? sodium chloride 0.9 % 5 mL Intravenous Q12H ??? ipratropium-albuterol 3 mL Nebulization Q6H DEVANG ??? DISCONTD: methylPREDNISolone sodium succinate (PF) 80 mg Intravenous Q8H DEVANG Continuous infusions: PRN medications: bisacodyl, calcium carbonate, diphenhydrAMINE, acetaminophen, LORazepam, ondansetron, ondansetron, ipratropium-albuterol Vitals: Last value Range last 24 hrs Temperature Temp: 37.2 ??C (99 ??F) Temp: [36.3 ??C (97.3 ??F)-37.2 ??C (99 ??F)] Heart Rate Heart Rate: 88 Heart Rate: [78-98] Blood Pressure BP: 151/83 mmHg BP: (134-152)/(65-83) Respiratory Rate Resp: 20 Resp: [16-20] SpO2 SpO2: 99 % SpO2: [91 %-99 %] Ins/Outs: I/O last 3 completed shifts: In: 2200 [P.O.:2200] Out: 3950 [Urine:3950] Intake/Output Summary (Last 24 hours) at 11/19/12 0733 Last data filed at 11/19/12 0037 Gross per 24 hour Intake 1200 ml Output 550 ml Net 650 ml Patient Vitals for the past 168 hrs: Weight 11/16/12 0648 91.9 kg (202 lb 9.6 oz) 11/16/12 0000 91.9 kg (202 lb 9.6 oz) 11/15/12 1820 91.9 kg (202 lb 9.6 oz) Physical Exam: Gen: NAD, AAOx3. Eating breakfast HEENT: NCAT. EOMI, PERRL, Oropharynx with MMM, CV: RRR, no murmurs or rubs noted. . Radial pulses +2. Lungs: CTAB, some coarse crackles bilaterally, good air movement Abd: Soft, non-distended, no tenderness to palpation x4, Normoactive bowel sounds. Ext: No pedal edema. No cyanosis or clubbing Skin: Echymosis on right quintero Neuro/MSK: CN II-XII grossly intact. no focal deficits noted Labs: Recent Labs Basename 11/19/12 0437 11/18/12 0518 11/17/12 0436 WBC 15.2* 16.1* 16.0* HGB 10.8* 10.7* 10.4* HCT 33.0* 32.1* 31.5* PLATELET 310 330 318 NEUTROABS -- 13.13* 13.35* Recent Labs Basename 11/19/12 0437 11/18/1218 11/17/12435 NA 135 135 134* K 4.0 4.0 4.2 CL 100 99 99 CO2 27 27 25 BUN 17 15 15 CREATININE 0.60* 0.58* 0.63* GLUCOSE 193 203* 198 Recent Labs Basename 11/19/12 0437 11/18/1251711/17/1243511/15/122011 CALCIUM 8.4* 8.4* 8.7 -- MAGNESIUM -- -- -- 0.91 PHOS -- -- -- 3.5 Recent Labs Basename 11/17/1243511/15/122011 PROT 6.0* 6.6 ALBUMIN 3.7 3.8 AST 15 21 ALT 25 28 ALKPHOS 66 77 BILITOT 0.5 0.5 BILIDIR 0.1 0.1 Other Labs: ESR 40 CRP 68.6 C-ANCA Neg P-ANCA Neg Legionella Neg Viral Panel Neg ANGIE Pending MPO Pending Anti GBM Pending Hypersensitivity Pneum. Pending Microbiology: Blood Culture: NGTD Urine Cx No growth Sputum Culture: Normal respiratory micah Imaging: Re-Read CT Chest 11/15 Impression 1. Underlying upper lobe predominant centrilobular emphysema with interval development of irregular interstitial septal thickening with upper lung zone predominance and developing peripheral honeycombing/fibrotic changes most pronounced in the left upper lobe superior segment left lower lobe. 2. Accompanying patchy ground-glass opacities throughout both lungs, as above. Differential considerations for ground-glass opacities would include hemorrhage is well as other inflammatory infectious alveolitis/process Assessment: Patient is a 62 y.o. female with a PMH significant for COPD (2 L oxygen dependent), history of smoking, hepatitis C, and HTN presenting with worsening shortness of breath for the past week with coughand sputum production. It may be a COPD exacerbation secondary to an atypical infection. Continue to treat for PNA with CAP coverage, supportive nebs and steroids. Based on serial Chest CT, subacute pulmonary ground glass opacities and fibrosis. After review with radiology less likely vasculitis, inflammatory workup neg thus far. History of mold exposure. Pulmonology following Plan: Shortness of breath and hemoptysis - continue treatment for COPD exacerbation - continue methylprednisolone 40 mg qdaily , duonebs q 6 hours - continue azithromycin 500 mg q 24 hr and ceftriaxone 1 g h 24 hrs (day 4) - Vasculitis workup in progress, MPO, PR3, AntiGBM, all pending - viral panel negative - hypersensitivity pneumonitis panel pending - f/u Pulmonology recs Anxiety/depression - continue amitriptyline 75mg nightly - continue paroxetine 40mg daily - continue ativan - continue buspar Hyperlipidemia - continue simvastatin 20mg every evening HTN - continue amlodipine 10mg qdaily Code Status Full Code Franklyn Carr MD PGY-1, Internal Medicine Team Pager #[phone] M2 Service Attending Documentation Please see Dr. Carr' note for details of the patient history of presentation and data. I have discussed, reviewed and agree with the documented History, Physical findings, Assessment and Plan of care. I have examined the patient myself and personally reviewed all studies. Additions to the history,physical, assessment and plan include the following: Continues to slowly but steadily improve subjectively - states she is not getting as SOB w/ exertion - although, objectively she still appears SOB with as little exertion as conversation. Continue current tx w/ steroids, nebs, and abx Follow ANGIE, anti-GBM, and hypersensitivity panel which are pending Mobilize with PT and assess ambulatory O2 req'ts Possible d/c home in the next few days w/ close pulm f/u depending on PT assessment and respiratorystatus w/ mobilization FOREST CARPIO MD 11/19/2012 * Andreas Andrews MD - 11/18/2012 10:52 AM EDT PULMONARY ATTENDING Patient examined, data reviewed. Says she feels better. Still coughing up some bloody sputum. Remains afebrile. SaO2 mid 90's on 3.5 L via NC. Few crackles on lung exam. Labs: Hgb stable. ANCA negative. Overall, she is better -- symptoms improved, oxygen requirement decreased. Nature of underlying process uncertain, but some sort of non-infectious inflammatory process still seems most likely. Would send off hypersensitivity pneumonitis panel -- the hemoptysis would be unusual for HP, but rest of cl inical picture is consistent. * Forest Carpio MD - 11/18/2012 7:41 AM EDT Inpatient Medicine Progress Note Date of Admission: 11/15/2012 ( Hospital Day 3 days ) Service: Clay phillip, Internal Medicine Responsible Attending: Forest Carpio MD Patient ID: Patient is a 62 y.o. female with a PMH significant for COPD (2 L oxygen dependent), history of smoking, hepatitis C, and HTN presenting with worsening shortness of breath for the past week with cough, hemoptysis, and sputum production. Active problems: -shortness of breath/pneumonia 24 Hour Events/Subjective: - transferred from [facility] - Steroid dose changed to 40mg BID - Pt now on 4L NC, baseline O2 home is 2L NC - pt feeling well, endorses cough Inpatient Medications: Scheduled Medications: ??? methylPREDNISolone sodium succinate (PF) 80 mg Intravenous Daily ??? hydroCODone-acetaminophen 1 tablet Oral Once ??? senna-docusate 1 tablet Oral BID ??? busPIRone 15 mg Oral Daily with breakfast ??? busPIRone 30 mg Oral Daily with lunch ??? nystatin 500,000 Units Oral BID ??? cefTRIaxone 1 g Intravenous Q24H ??? azithromycin 500 mg Intravenous Q24H ??? polyethylene glycol (MIRALAX)oral powder 17 g Oral Daily ??? diclofenac 75 mg Oral BID ??? amitriptyline 75 mg Oral Nightly ??? amlodipine 10 mg Oral Daily ??? PARoxetine 40 mg Oral Daily ??? simvastatin 20 mg Oral QPM ??? sodium chloride 0.9 % 5 mL Intravenous Q12H ??? ipratropium-albuterol 3 mL Nebulization Q6H DEVANG ??? DISCONTD: methylPREDNISolone sodium succinate (PF) 80 mg Intravenous Q8H DEVANG Continuous infusions: PRN medications: acetaminophen, LORazepam, ondansetron, ondansetron, ipratropium-albuterol Vitals: Last value Range last 24 hrs Temperature Temp: 36.4 ??C (97.5 ??F) Temp: [36.4 ??C (97.5 ??F)-37.1 ??C (98.8 ??F)] Heart Rate Heart Rate: 86 Heart Rate: [72-86] Blood Pressure BP: 147/54 mmHg BP: (118-152)/(44-80) Respiratory Rate Resp: 16 Resp: [16-20] SpO2 SpO2: 95 % SpO2: [94 %-100 %] Ins/Outs: I/O last 3 completed shifts: In: 2660 [P.O.:2660] Out: 6950 [Urine:6950] Intake/Output Summary (Last 24 hours) at 11/18/12 0741 Last data filed at 11/18/12 0616 Gross per 24 hour Intake 1960 ml Output 4350 ml Net -2390 ml Patient Vitals for the past 168 hrs: Weight 11/16/12 0648 91.9 kg (202 lb 9.6 oz) 11/16/12 0000 91.9 kg (202 lb 9.6 oz) 11/15/12 1820 91.9 kg (202 lb 9.6 oz) Physical Exam: Gen: NAD, AAOx3 HEENT: NCAT. EOMI, PERRL, Oropharynx with MMM, CV: RRR, no murmurs or rubs noted. . Radial pulses +2. Lungs: mildly diminished BS bibasilar, reduced wheezing, good airway entry b/l Abd: Soft, non-distended, no tenderness to palpation x4, Normoactive bowel sounds. Ext: No pedal edema. No cyanosis or clubbing Skin: Echymosis on right quintero Neuro/MSK: CN II-XII grossly intact. no focal deficits noted Labs: Recent Labs Basename 11/18/1251711/17/1243511/16/12221 WBC 16.1* 16.0* 10.6* HGB 10.7* 10.4* 10.9* HCT 32.1* 31.5* 32.9* PLATELET 330 318 314 NEUTROABS 13.13* 13.35* -- Recent Labs Basename 11/18/1251711/17/1243511/16/12221 NA 135 134* 136 K 4.0 4.2 4.3 CL 99 99 100 CO2 27 25 25 BUN 15 15 14 CREATININE 0.58* 0.63* 0.64* GLUCOSE 203* 198 202* Recent Labs Basename 11/18/12517 11/17/12 0436 11/16/12 0222 11/15/122011 CALCIUM 8.4* 8.7 9.0 -- MAGNESIUM -- -- -- 0.91 PHOS -- -- -- 3.5 Recent Labs Basename 11/17/12 0436 11/15/122011 PROT 6.0* 6.6 ALBUMIN 3.7 3.8 AST 15 21 ALT 25 28 ALKPHOS 66 77 BILITOT 0.5 0.5 BILIDIR 0.1 0.1 Recent Labs Basename 11/15/122011 INR 1.0 PT 13.5 PTT -- Component Value Date/Time SPGRAVITYUA 1.016 11/17/2012 1003 PHUADIP 7.0 11/17/2012 1003 PROTEINUADIP Trace* 11/17/2012 1003 GLUCOSEU 300* 11/17/2012 1003 KETONESUA Negative 11/17/2012 1003 UROBILIUADIP Normal 11/17/2012 1003 BLOODUADIP Small* 11/17/2012 1003 NITRATEUA Negative 11/17/2012 1003 LEUKOESTERUA Negative 11/17/2012 1003 WBCUA Not Present 11/17/2012 1003 BILIRUBINUA Negative 11/17/2012 1003 Other Labs: ESR 40 CRP 68.6 C-ANCA Neg P-ANCA Neg MPO Pending Anti GBM Pending Legionella Neg Viral Panel Pending ANGIE Pending Microbiology: Blood Culture: NGTD Urine Cx NGTD Sputum Culture: Normal respiratory micah Imaging: Re-Read CT Chest 11/15 Impression 1. Underlying upper lobe predominant centrilobular emphysema with interval development of irregular interstitial septal thickening with upper lung zone predominance and developing peripheral honeycombing/fibrotic changes most pronounced in the left upper lobe superior segment left lower lobe. 2. Accompanying patchy ground-glass opacities throughout both lungs, as above. Differential considerations for ground-glass opacities would include hemorrhage is well as other inflammatory infectious alveolitis/process Assessment: Patient is a 62 y.o. female with a PMH significant for COPD (2 L oxygen dependent), history of smoking, hepatitis C, and HTN presenting with worsening shortness of breath for the past week with coughand sputum production. It may be a COPD exacerbation secondary to an atypical infection. Will treatfor PNA with CAP coverage, supportive nebs and steroids. Based on serial Chest CT, subacute pulmonary ground glass opacities and fibrosis. After review with radiology less likely vasculitis, inflammatory workup neg thus far. Pt has endorses mold exposure at home, which could be a contributing factor. Currently Pulmonology following, appreciate recs. Plan: Shortness of breath and hemoptysis - continue treatment for COPD exacerbation - continue methylprednisolone 80 mg qdaily , duonebs q 6 hours - continue azithromycin 500 mg q 24 hr and ceftriaxone 1 g h 24 hrs - Vasculitis workup in progress, MPO, PR3, AntiGBM, all pending - patient unable to tolerate pulmonary function test, however cough improving may retry on Monday - viral panel recollected today, pending - f/u Pulmonology recs Anxiety/depression - continue amitriptyline 75mg nightly - continue paroxetine 40mg daily - continue ativan - continue buspar Hyperlipidemia - continue simvastatin 20mg every evening HTN - continue amlodipine 10mg qdaily Code Status -FULL CODE Electronically signed by: Tejas Garrett PGY-3 [facility] Pager [phone] 11/18/2012 M2 Service Attending Documentation Please see Dr. Garrett's note for details of the patient history of presentation and data. I have discussed, reviewed and agree with the documented History, Physical findings, Assessment and Plan of care. I have examined the patient myself and personally reviewed all studies. Additions to the history, physical, assessment and plan include the following: Gradually improving subjectively. Breathing comfortably at rest but still gets out of breath with any little exertion. ANCA's negative Resp viral panel negative ANGIE pending Anti-GBM pending Taper steroids per pulm Continue abx and nebs Follow ANGIE, anti-GBM Send hypersensitivity pneumonitis panel per pulm Appreciate pulm input FOREST CARPIO MD 11/18/2012 * Andreas Andrews MD - 11/17/2012 10:58 AM EDT PULMONARY ATTENDING Patient examined, data reviewed. Feels slightly better. Still coughing up blood mixed with sputum -- sometimes just streaks, other times a lot. She was unable to do PFTs (DLCO) yesterday. Afebrile overnight. Minimally tachypneic at rest; remains on 6 L with SaO2 mid 90's. No change in lung exam. No new imaging studies. ANCA and other labs still pending. Assessment and Plan: Little change since yesterday. As before, doubt this is pneumonia, but reasonable to complete a total of 1 weeks of antibiotics. Continue steroids, but could change to prednisoneat 1 mg/kg/day. * Forest Carpio MD - 11/17/2012 7:35 AM EDT Inpatient Medicine Progress Note Date of Admission: 11/15/2012 ( Hospital Day 2 days ) Service: Clay phillip, Internal Medicine Responsible Attending: Forest Carpio MD Patient ID: Patient is a 62 y.o. female with a PMH significant for COPD (2 L oxygen dependent), history of smoking, hepatitis C, and HTN presenting with worsening shortness of breath for the past week with cough, hemoptysis, and sputum production. Active problems: # shortness of breath/pneumonia 24 Hour Events/Subjective: - transferred from [facility] - patient unable to tolerate pulmonary function test yesterday 2/2 cough - she did state that she has a history of mold exposure in her bathroom of her house. - feels slightly better right now compared to earlier Inpatient Medications: Scheduled Medications: ??? senna-docusate 1 tablet Oral BID ??? busPIRone 15 mg Oral Daily with breakfast ??? busPIRone 30 mg Oral Daily with lunch ??? nystatin 500,000 Units Oral BID ??? cefTRIaxone 1 g Intravenous Q24H ??? azithromycin 500 mg Intravenous Q24H ??? polyethylene glycol (MIRALAX)oral powder 17 g Oral Daily ??? diclofenac 75 mg Oral BID ??? hydroCODone-acetaminophen 1 tablet Oral Once ??? DISCONTD: busPIRone 15 mg Oral BID ??? DISCONTD: ibuprofen 200 mg Oral Daily ??? amitriptyline 75 mg Oral Nightly ??? amlodipine 10 mg Oral Daily ??? PARoxetine 40 mg Oral Daily ??? simvastatin 20 mg Oral QPM ??? sodium chloride 0.9 % 5 mL Intravenous Q12H ??? methylPREDNISolone sodium succinate (PF) 80 mg Intravenous Q8H DEVANG ??? ipratropium-albuterol 3 mL Nebulization Q6H DEVANG ??? DISCONTD: vancomycin 1 g Intravenous Q12H ??? DISCONTD: Vancomycin Level - MAR Order Reminder NOT APPLICABLE Once ??? DISCONTD: piperacillin-tazobactam 3.375 g Intravenous Q8H Continuous infusions: PRN medications: acetaminophen, LORazepam, DISCONTD: LORazepam, ondansetron, ondansetron, ipratropium-albuterol Vitals: Last value Range last 24 hrs Temperature Temp: 37.1 ??C (98.8 ??F) Temp: [36.6 ??C (97.9 ??F)-37.1 ??C (98.8 ??F)] Heart Rate Heart Rate: 75 Heart Rate: [75-88] Blood Pressure BP: 122/70 mmHg BP: (122-157)/(68-78) Respiratory Rate Resp: 16 Resp: [16-24] SpO2 SpO2: 96 % SpO2: [92 %-96 %] Ins/Outs: I/O last 3 completed shifts: In: 3515 [P.O.:2460; IV Piggyback:1055] Out: 6800 [Urine:6800] Intake/Output Summary (Last 24 hours) at 11/17/12 0735 Last data filed at 11/17/12 0625 Gross per 24 hour Intake 3415 ml Output 3250 ml Net 165 ml Patient Vitals for the past 168 hrs: Weight 11/16/12 0648 91.9 kg (202 lb 9.6 oz) 11/16/12 0000 91.9 kg (202 lb 9.6 oz) 11/15/12 1820 91.9 kg (202 lb 9.6 oz) Physical Exam: Gen: NAD, AAOx3, laying in bed resting HEENT: NCAT. EOMI, PERRL, Oropharynx with MMM, CV: RRR, no murmurs or rubs noted. . Radial pulses +2. Lungs: some wheezing with bibasilar crackles. Good aeration Abd: Soft, non-distended, no tenderness to palpation x4, Normoactive bowel sounds. Ext: No pedal edema. No cyanosis or clubbing Skin: Echymosis on right quintero Neuro/MSK: CN II-XII grossly intact. no focal deficits noted Labs: Recent Labs Basename 11/17/1243511/16/1222111/15/122011 WBC 16.0* 10.6* 12.8* HGB 10.4* 10.9* 10.5* HCT 31.5* 32.9* 31.1* PLATELET 318 314 291 NEUTROABS 13.35* -- -- Recent Labs Basename 11/17/1243511/16/1222111/15/122011 NA 134* 136 129* K 4.2 4.3 4.4 CL 99 100 93* CO2 25 25 23 BUN 15 14 12 CREATININE 0.63* 0.64* 0.70 GLUCOSE 198 202* 180 Recent Labs Basename 11/17/1243511/16/1222111/15/122011 CALCIUM 8.7 9.0 9.0 MAGNESIUM -- -- 0.91 PHOS -- -- 3.5 Recent Labs Basename 11/17/1243511/15/122011 PROT 6.0* 6.6 ALBUMIN 3.7 3.8 AST 15 21 ALT 25 28 ALKPHOS 66 77 BILITOT 0.5 0.5 BILIDIR 0.1 0.1 Recent Labs Basename 11/15/122011 INR 1.0 PT 13.5 PTT -- Component Value Date/Time SPGRAVITYUA 1.017 11/16/2012 0756 PHUADIP 8.0 11/16/2012 0756 PROTEINUADIP 30* 11/16/2012 0756 GLUCOSEU Negative 11/16/2012 0756 KETONESUA Negative 11/16/2012 0756 UROBILIUADIP Normal 11/16/2012 0756 BLOODUADIP Moderate 11/16/2012 0756 NITRATEUA Negative 11/16/2012 0756 LEUKOESTERUA Negative 11/16/2012 0756 WBCUA 2 11/16/2012 0756 BILIRUBINUA Negative 11/16/2012 0756 Other Labs: ESR 40 CRP 68.6 C-ANCA Pending P-ANCA Pending MPO Pending Anti GBM Pending Legionella Pending Viral Panel Pending ANGIE Pending Microbiology: Blood Culture: NGTD Urine Cx NGTD Sputum Culture: Normal respiratory micah Imaging: Re-Read CT Chest 11/15 Impression 1. Underlying upper lobe predominant centrilobular emphysema with interval development of irregular interstitial septal thickening with upper lung zone predominance and developing peripheral honeycombing/fibrotic changes most pronounced in the left upper lobe superior segment left lower lobe. 2. Accompanying patchy ground-glass opacities throughout both lungs, as above. Differential considerations for ground-glass opacities would include hemorrhage is well as other inflammatory infectious alveolitis/process Assessment: Patient is a 62 y.o. female with a PMH significant for COPD (2 L oxygen dependent), history of smoking, hepatitis C, and HTN presenting with worsening shortness of breath for the past week with coughand sputum production. It may be a COPD exacerbation secondary to an atypical infection. Currently treating with ceftriaxone and azithryomycin. Some concern for a possible vasculitis given her hemoptysis and a history of chronic sinus disease, labs pending. Continue to treat for COPD exacerbation and possible pneumonia. Pulmonology following. Plan: // shortness of breath and hemoptysis - continue treatment for COPD exacerbation - continue methylprednisolone 80 mg q 8 hours , duonebs q 6 hours - continue azithromycin 500 mg q 24 hr and ceftriaxone 1 g h 24 hrs for atypical coverage - Vasculitis workup in progress, C-ANCA, MPO, PR3, ANGIE AntiGBM, all pending - patient unable to tolerate pulmonary function test yesterday 2/2 cough/SOB - viral panel recollected today, pending - pulmonology folowing Chronic medical condition //anxiety/depression - continue amitriptylene 75mg nightly - continue paroxetine 40mg daily - continue ativan - continue buspar //hyperlipidemia - continue simvastatin 20mg every evening //HTN - continue amlodipine 10mg qdaily //Code Status: FULL CODE Franklyn Carr MD PGY-1, Internal Medicine Team Pager #[phone] M2 Service Attending Documentation Please see Dr. Carr' note for details of the patient history of presentation and data. I have discussed, reviewed and agree with the documented History, Physical findings, Assessment and Plan of care. I have examined the patient myself and personally reviewed all studies. Additions to the history,physical, assessment and plan include the following: Subjectively improved but obviously still SOB w/ minimal exertion. ANCA's negative. Continue nebs, steroids, and abx and follow rheum w/u Appreciate pulm input FOREST CARPIO MD 11/17/2012 * Della Wolff RN - 11/16/2012 11:44 AM EDT CLINICAL BOX HINGE AND LOCK ATTACHER (CRC),Office of Care Management Della Wolff RN, BSN, Phone [phone] Pager # [phone] Office of Care Management (OCM) / Clinical Air Tester (CRC)/ Initial Assessment Reviewed record, able to interview patient. Introduced self and reviewed CRC role with pt and her partner Teo, services accepted. REASON for HOSPITALIZATION: 62 yo female with worsening shortness of breath for a week on her home oxygen following sinus infection. Her CT findings showed diffuse fibrotic emphysematous changes concerning for vasculitis and [place] [facility] and definitive treatment. Being treated with duonebs, IV abx Vancomycin and Zosyn and IV steroids. She feels her breathing isbetter than earlier today. Pulmonary medicine consult. [facility] Past Medical History Diagnosis Date ??? COPD (chronic obstructive pulmonary disease) ??? Anxiety ??? Depression ??? Hypertension ??? Arthritis ??? GERD (gastroesophageal reflux disease) ??? Hepatitis C ?? Strep Miliari pneumonia s/p decortication in 2008 PREVIOUS FUNCTIONAL STATUS: Oxygen dependent COPD 2 L/[facility] vendor. Home is a 3 bedroom 2 bath trailer on property they hope to build on. Pt and so Teo misunderstood baseline functional status to imply baseline oxygen sats. She ambulates without asssitive devices, had used a walking stick to hike and recently a golf club although not sure when she hiked last. She fell and broke a rib in June, waxing floor with oxygen in backpack and she fell while trying to answer phone and broke rib. She has had more dyspnea with exertion during this time. She says there are times when she has improved and almost has given oxygen back and then something happens and she has more dyspnea with exertion and oxygen requirement. Independent with personal cares, but recently has been wearing oxygen during very short showers because she is so short of breath. She drives. She has had 2 previous [facility] [place], one requiring rehab at [facility]. SOCIAL / FAMILY SUPPORTS: Lives in [place], [place] with her significant other Teo, they have been together 23 years. They have adopted daughter's 3 children ages 16,12, and 11 and are rasing them. 2/3 are at camp this week. Son Ian lives in [place]. and daughter Marie is back in the picture. Her sister Adilia is in [place]. Teo is not working outside home and Isra says he is such a help to her and the children. ADVANCE DIRECTIVES: Has not completed and Teo and I talked with her about this. She says she should fill it out, but when I asked her if she wanted to complete them she says it is a big book you have to fill out and not now. She clearly understands importance of AD's. I offered to complete ACP note with her wishes for DPOA-HC and she said not now asked Teo and I both to leave saying she was feeling trapped. Teo says he completed his prior to cardiac surgery, but she procrastinates and just doesn't want to complete paperwork. She is his DPOA-HC and they seem to have a very close relationship. HEALTH /PRESCRIPTION COVERAGE:[place], [place], and [place] after Medicaid. CURRENT HOME/COMMUNITY SERVICES/EQUIPMENT: DME: Oxygen, [employer] vendor. Home Health Agency: No active services. Other: [employer] REFERRAL: Shine Rivera, [employer] Pager [phone] or John Duran, [employer] pager [phone] will follow. Teo says pt has a bill for echo in 2008 prior to her having Medicaid that has adversely affected her credit and he is wondering if this could be addressed during this admission. He has tried to take care ofit, but for various reasons pt has not been able to work with ? PFS to resolve the manner. Given her response to the AD interaction, it might be best to get details from Teo before speaking with pt. PRIMARY CARE PHYSICIAN: NAYANA NEWBERRY MD [address] / [place] [address] POTENTIAL DISCHARGE NEEDS: Unable to determine at this time; will continue to monitor. Pt has had both short rehab stay and VNA services in the past following hospitalizations and is aware of deconditioning with prolonged bedrest. Reassured them that CRC will follow and assist with discharge planning as medically appropriate. PATIENT/FAMILY EDUCATION NEEDS: Report understanding current plan of care, Dr. Andrews and pulmonary team was in the room when I first arrived. Pt and SO are hoping for definitve answers and a reversible disease process. They ask good questions. ANTICIPATED BARRIERS TO DISCHARGE: None identified at this time. TRANSPORTATION @ D/C: To be determined, Teo availble to transport. PLAN: CRC will continue to monitor progress, follow for continuity of care and assist with discharge planning while hospitalized * Lindy Duenas RN - 11/16/2012 9:56 AM EDT Nursing Progress Note ?? A&O X4. Extremely anxious. Pt states that she takes Buspar, Paxil, and Ativan at home. MD notified - Buspar and Ativan ordered. ?? VSWNL. ?? Exp wheezing - worse during high anxiety, 6L NC w/SaO2 >90%. IS as tolerated. Productive cough - sputum sent. Home O2 PRN. ?? Pt reported sore mouth, assessment shows several white, adherent patchy areas on tongue and palate. Discussed w/MD and Nystatin order placed. ?? Pt reports generalized all over pain. notified and order for Tylenol placed. Pt also wishesto have her Diclofenac Sodium/Misoprostol restarted JOHNSON - specific form isn't available, is consulting pharmacy regarding alternatives. Pt reports that Tylenol and Ibuprofen are not controlling her pain, which is still 5-6/10. Received Vicodin at OSH and states that it helped but didn't last long. ?? Skin intact - generalized bruising. ?? Tolerating diet - good appetite. ?? Adequate clear,yellow urine. Keenan d/c'd at 1415. ?? Hypoactive BS w/distended abd, soft, non-tender. Pt states that she takes laxatives at home. Last BM 11/10. Bowel meds initiated. ?? RUE elevated and heat application through day for infiltrate. ?? Pt bathed. OOB to chair.Tolerated transfer, increased WOB, no increased O2 required. ?? Pulmonology consult complete. ?? Droplet precautions initiated. Additional ABX started. ?? Significant other, Lalo and sister, Adilia updated. ?? Pt shared that she thinks she may have been exposed to mold - in her bathroom for last 4 yrs and, although she thinks it is under control, she has concerns that it may be in the wall. ?? Pt taken to PFT lab and then accompanied to Room 137. Report given. Plan/Follow Up: ?? Pt needs alternative access - please consider PICC. ?? Respiratory support w/O2 wean as tolerated. ABX. Nebs. ?? Anxiety management - home meds, reassurance. ?? Encourage BM. ?? Please add LFTs to morning labs. * Karlee Edouard RN - 11/16/2012 6:47 AM EDT Infiltration/Extravasation Scale Instructions: Strikeout non-applicable grades, highlight the grade which applies to this patient byBOLD lettering and COLOR RED Edema 1 to 6 inches (2.5 to 15 cm) in any direction Specific location of infiltration/extravasation RAC toward basilic vanco extrav. approx time 2300 Plan for continued monitoring of infiltration/extravasation Rest heat elevation. Bruno garcia RN aware * Cady Cheema MD - 11/16/2012 6:41 AM EDT Inpatient Medicine Progress Note Date of Admission: 11/15/2012 ( Hospital Day 1 day ) Service: Blue team, Internal Medicine Responsible Attending: Gulshan Rosa MD Patient ID: Patient is a 62 y.o. female with a PMH significant for COPD (2 L oxygen dependent), history of smoking, hepatitis C, and HTN presenting with worsening shortness of breath for the past week with cough, hemoptysis, and sputum production. Active problems: # shortness of breath/pneumonia 24 Hour Events/Subjective: - patient slept through the entire night. Remained afebrile with stable vital signs on 6 L oxygen - she had one episode of hemoptysis overnight. Described as smaller than usual - Patient states still has a productive cough and feels yucky. No new concerns Inpatient Medications: Scheduled Medications: ??? hyaluronidase (ovine) 1-10 mL Subcutaneous Once ??? amitriptyline 75 mg Oral Nightly ??? amlodipine 10 mg Oral Daily ??? PARoxetine 40 mg Oral Daily ??? simvastatin 20 mg Oral QPM ??? sodium chloride 0.9 % 5 mL Intravenous Q12H ??? vancomycin 1 g Intravenous Q12H And ??? Vancomycin Level - MAR Order Reminder NOT APPLICABLE Once ??? piperacillin-tazobactam 3.375 g Intravenous Q8H ??? methylPREDNISolone sodium succinate (PF) 80 mg Intravenous Q8H DEVANG ??? ipratropium-albuterol 3 mL Nebulization Q6H DEVANG ??? DISCONTD: methylPREDNISolone sodium succinate (PF) 80 mg Intravenous Daily ??? DISCONTD: cefTRIaxone 1 g Intravenous Q24H ??? DISCONTD: azithromycin 500 mg Intravenous Q24H ??? DISCONTD: ipratropium-albuterol 3 mL Nebulization Q6H DEVANG Continuous infusions: PRN medications: ondansetron, ondansetron, ipratropium-albuterol, DISCONTD: ipratropium-albuterol Vitals: Last value Range last 24 hrs Temperature Temp: 36.8 ??C (98.2 ??F) Temp: [36.8 ??C (98.2 ??F)-37 ??C (98.6 ??F)] Heart Rate Heart Rate: 78 Heart Rate: [72-82] Blood Pressure BP: 152/71 mmHg BP: (117-152)/(57-126) Respiratory Rate Resp: 26 Resp: [14-31] SpO2 SpO2: 95 % SpO2: [92 %-100 %] Ins/Outs: I/O last 3 completed shifts: In: - Out: 750 [Urine:750] Intake/Output Summary (Last 24 hours) at 11/16/12 0641 Last data filed at 11/16/12 0400 Gross per 24 hour Intake 0 ml Output 4300 ml Net -4300 ml Patient Vitals for the past 168 hrs: Weight 11/16/12 0000 91.9 kg (202 lb 9.6 oz) 11/15/12 1820 91.9 kg (202 lb 9.6 oz) Physical Exam: Gen: NAD, AAOx3, laying in bed resting HEENT: NCAT. EOMI, PERRL, Oropharynx with MMM, CV: RRR, no murmurs or rubs noted. . Radial pulses +2. Lungs: moderate wheezing with some decreased breath sounds at bases. Good aeration Abd: Soft, non-distended, no tenderness to palpation x4, Normoactive bowel sounds. Ext: No pedal edema. No cyanosis or clubbing Skin: Echymosis on right quintero Neuro/MSK: CN II-XII grossly intact. no focal deficits noted Labs: Recent Labs Basename 11/16/122 11/15/122011 WBC 10.6* 12.8* HGB 10.9* 10.5* HCT 32.9* 31.1* PLATELET 314 291 NEUTROABS -- -- Recent Labs Basename 11/16/122 11/15/122011 NA 136 129* K 4.3 4.4 CL 100 93* CO2 25 23 BUN 14 12 CREATININE 0.64* 0.70 GLUCOSE 202* 180 Recent Labs Basename 11/16/122 11/15/122011 CALCIUM 9.0 9.0 MAGNESIUM -- 0.91 PHOS -- 3.5 Recent Labs Basename 11/15/122011 PROT 6.6 ALBUMIN 3.8 AST 21 ALT 28 ALKPHOS 77 BILITOT 0.5 BILIDIR 0.1 Recent Labs Basename 11/15/122011 INR 1.0 PT 13.5 PTT -- Component Value Date/Time SPGRAVITYUA 1.017 11/16/2012 0756 PHUADIP 8.0 11/16/2012 0756 PROTEINUADIP 30* 11/16/2012 0756 GLUCOSEU Negative 11/16/2012 0756 KETONESUA Negative 11/16/2012 0756 UROBILIUADIP Normal 11/16/2012 0756 BLOODUADIP Moderate 11/16/2012 0756 NITRATEUA Negative 11/16/2012 0756 LEUKOESTERUA Negative 11/16/2012 0756 WBCUA 2 11/16/2012 0756 BILIRUBINUA Negative 11/16/2012 0756 Other Labs: ESR 40 CRP 68.6 C-ANCA Pending P-ANCA Pending MPO Pending Microbiology: Blood Culture: Pending Sputum Culture: Normal respiratory micah Imaging: Re-Read CT Chest 11/15 Impression 1. Underlying upper lobe predominant centrilobular emphysema with interval development of irregular interstitial septal thickening with upper lung zone predominance and developing peripheral honeycombing/fibrotic changes most pronounced in the left upper lobe superior segment left lower lobe. 2. Accompanying patchy ground-glass opacities throughout both lungs, as above. Differential considerations for ground-glass opacities would include hemorrhage is well as other inflammatory infectious alveolitis/process Assessment: Patient is a 62 y.o. female with a PMH significant for COPD (2 L oxygen dependent), history of smoking, hepatitis C, and HTN presenting with worsening shortness of breath for the past week with coughand sputum production. It may be a COPD exacerbation secondary to an infection however there is some concern for a vasculitis given the image findings. She also has recent hemoptysis and a history ofchronic sinus disease. Continue to treat for COPD exacerbation and possible pneumonia. Plan: // shortness of breath and hemoptysis - continue treatment for COPD exacerbation; - continue methylprednisolone 80 mg q 8 hours , duonebs q 6 hours - continue vancomycin 1 g q 12 hours and zosyn 3.375 g every 8 h (day 2) - Pulmonology consult today, awaiting recs - Vasculitis workup in progress, C-ANCA, MPO, PR3, Chronic medical condition //anxiety/depression - continue amitriptylene 75mg nightly - continue paroxetine 40mg daily - continue ativan - continue buspar //hyperlipidemia - continue simvastatin 20mg every evening //HTN - continue amlodipine 10mg qdaily //Code Status: FULL CODE Franklyn Carr MD PGY-1, Internal Medicine Team Pager #[phone] M2 Service Attending Documentation Please see Dr. Carr' note for details of the patient history of presentation and data. I have discussed, reviewed and agree with the documented History, Physical findings, Assessment and Plan of care. I have examined the patient myself and personally reviewed all studies. Additions to the history,physical, assessment and plan include the following: Reviewed Ms Caballero' CT chest with chest radiology, Dr Antony today and discussed with the pulmonary team. Unclear the etiology of her current respiratory failure. She clearly has moderate to severe COPD and certainly has some sort of additional acute dx. Infection seems less likely and stopping broad spectrum abx today and covering only for atypicals. WIll follow final rheumatologic w/u, part of which was ordered at the OSH. Cont iv steroids. Cady Cheema MD documented in this encounter H&P Notes * Cady Cheema MD - 11/15/2012 7:01 PM EDT Internal Medicine Admission History and Physical Patient info: Name: Isra Caballero (1950) Service: [facility] Team PCP: NAYANA NEWBERRY MD PCP phone number: [phone] Responsible Attending:Gulshan Rosa MD Chief Complaint: shortness of breath and hemoptysis History of Present Illness: Patient is a 62 y.o. female with a history of COPD (2 L oxygen dependent), strep miliari pneumonia s/p decortication in past, history of smoking, hepatitis C, and HTN presented to an outside hospitalwith worsening shortness of breath for the past week. A CT scan showed diffuse fibrotic emphysematous changes with concern for vasculitis. The patient was given duonebs, ceftriaxione, azithromycin, and IV steroids. [place] [facility] [place]. Her symptoms started a few months ago with a sinus infection that wouldn't go away. Went to a primary care and was prescribed antibiotics without any relief. One week ago her oxygen saturations were going down to around 75% and she became worried since this has never happened before. She normally uses 2 L of nasal cannula oxygen at home for her COPD and was still short of breath. Also has been having a productive cough with yellow phlegm over the past few weeks. Endorses subjective fevers but denies any night sweats. Yesterday she began coughing up blood the size of a nickel with some clots. This happened six times. No history of previous hemoptysis. Other symptoms diizziness that has been waxing and waning. Denies any hematuria or decreased urine output. Denies any nausea, vomiting, diarrhea, chest pain, palpitations, or unintentional weight loss. Review of Systems: Const: (+)subjective fevers (-)chills (-)night sweats (-)weight change (-)fatigue HEENT: (-)change in hearing or vision (-)oral lesions (-)difficulty swallowing Resp: (+)SOB (-)wheezing (+)cough (+)sputum production (+)hemoptysis CV: (-)chest pain (-)palpitations (+)MEZA (-)orthopnea (-) pedal edema GI: (-) N/V (-)abdominal pain (-)diarrhea (-)constipation (-)blood in stool : (-)frequency (-)urgency (-)discharge (-)burning (-)hematuria Endo: (-)polydipsia (-)polyuria (-)heat/cold intolerance Heme: (+)enlarged cervical lymph nodes (-)easy bruising/bleeding MSK: (-)new joint pain (-)swelling (-)weakness Skin: (-)rashes/lesions Neuro: (-)headaches (-)weakness (-)numbness/parasthesias (+)dizzy Past Medical History Past Medical History Diagnosis Date ??? COPD (chronic obstructive pulmonary disease) ??? Anxiety ??? Depression ??? Hypertension ??? Arthritis ??? GERD (gastroesophageal reflux disease) ??? Hepatitis C Past Surgical History Broken nose and collar bone Thumb surgery in 2003 Lung abscess w/ decortication in 2008 Medications: No current facility-administered medications on file prior to encounter. Current Outpatient Prescriptions on File Prior to Encounter Medication Sig Dispense Refill ??? fluticasone-salmeterol (ADVAIR DISKUS) 500-50 mcg/dose diskus inhaler ??? PARoxetine (PAXIL) 40 mg tablet ??? amitriptyline (ELAVIL) 75 mg tablet ??? DICLOFENAC SODIUM/MISOPROSTOL (ARTHROTEC 50 ORAL) ??? omeprazole (PRILOSEC) 20 mg capsule ??? tiotropium (SPIRIVA WITH HANDIHALER) 18 mcg inhalation capsule ??? CIS Free Text Med - BuSpar ??? amlodipine (NORVASC) 10 mg tablet ??? levalbuterol (XOPENEX) 0.63 mg/3 mL nebulizer solution ??? ERGOCALCIFEROL, VITAMIN D2, (VITAMIN D ORAL) ??? ibuprofen (ADVIL;MOTRIN) 800 mg tablet 800 MG = 1 Tablet(s), PO, Three times daily ??? penicillin v potassium (VEETID) 500 mg tablet 500 MG = 1 Tablet(s), PO, Four times daily Allergies: Allergies Allergen Reactions ??? Alendronate Sodium CIS [...] NIGHTMARES, CIS - NIGHTMARES, CIS - NIGHTMARES Family History: CAD, no history of cancer. Social History: Tobacco: 35 pack year smoker, doesn't smoke anymore EtoH: a few beers per wek Illicit Drug: Denies Living Situation: Lives with her partner Teo and two adopted kids Job: Currently on disability. 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 Vitals: Last value Range last 24 hrs Temperature Temp: 37 ??C (98.6 ??F) Temp: [37 ??C (98.6 ??F)] Heart Rate Heart Rate: 78 Heart Rate: [78-82] Blood Pressure BP: 128/73 mmHg BP: (128-147)/(73-75) Respiratory Rate Resp: 19 Resp: [19] SpO2 SpO2: 93 % SpO2: [93 %-94 %] Physical Examination: Gen: NAD, AAOx3, laying in bed resting HEENT: NCAT, non-tender. EOMI, PERRL, no scleral icterus or discharge. No nasal discharge. Oropharynx with MMM, No exudates or ulcers. Neck: +mild left cervical lymphadenopathy. No thyromegaly CV: RRR, no murmurs or rubs noted. No JVD. Radial pulses +2. Lungs: +bibasilar crackles bilaterally with mild wheezing. Good aeration Abd: Soft, non-distended, mild diffuse tenderness to palpation x4, Normoactive bowel sounds. No hepatomegaly or splenomegaly Ext: No pedal edema. No cyanosis or clubbing Skin: Echymosis on right quintero Neuro/MSK: Cranial nerves II-XII intact. Strength 5/5 BUE and BLE. Sensation intact to light touch throughout extremities. LABS Recent Labs Basename 11/15/122011 WBC 12.8* HGB 10.5* HCT 31.1* PLATELET 291 NEUTROABS -- Recent Labs Basename 11/15/122011 NA 129* K 4.4 CL 93* CO2 23 BUN 12 CREATININE 0.70 GLUCOSE 180 Recent Labs Basename 11/15/122011 CALCIUM 9.0 MAGNESIUM 0.91 PHOS 3.5 Recent Labs Basename 11/15/122011 PROT 6.6 ALBUMIN 3.8 AST 21 ALT 28 ALKPHOS 77 BILITOT 0.5 BILIDIR 0.1 Recent Labs Basename 11/15/122011 INR 1.0 PT 13.5 PTT -- Labs from outside hospital: Pro-bnp 51 troponin negative ABG on 11/14 - 7.45/30/58/21 on 4 L nasal cannula Microbiology outside hospital: Sputum - gram stain gram + cocci Imaging outside hospital: CTA Chest - No evidence of pulmonary embolic disease. Diffuse fibrotic and emyphysematous changes. Echo - EF 65-70%, right atrium mildly dilated, no wall motion abnormalities Assessment: Patient is a 62 y.o. female with a PMH significant for COPD (2 L oxygen dependent), history of smoking, hepatitis C, and HTN presenting with worsening shortness of breath for the past week with coughand sputum production. It may be a COPD exacerbation secondary to an infection however there is concern for a vasculitis given the image findings. She also has recent hemoptysis and a history of chronic sinus disease. Will treat for COPD exacerbation but continue further workup. Plan: // shortness of breath and hemoptysis - CBC, CMP, sputum culture, blood culture x2, urinalysis - will treat for COPD exacerbation; - will start methylprednisolone 80 mg q 8 hours - duonebs q 6 hours - start vancomycin 1 g q 12 hours and zosyn 3.375 g every 8 h - Pulmonology consult in am - re-read of CT in progress with radiology - Vasculitis workup in progress, C-ANCA, MPO, PR3,, ESR, CRP Chronic medical condition //anxiety/depression - continue amitriptylene 75mg nightly - continue paroxetine 40mg daily //hyperlipidemia - continue simvastatin 20mg every evening //HTN - continue amlodipine 10mg qdaily //Code Status: FULL CODE Franklyn Carr MD PGY-1, Internal Medicine Team Pager #[phone] Attending Staff Admission Documentation I have examined the patient myself on 11/15/12 and reviewed all labs and studies personally. Please see Dr. Carr' documentation for details of the patient history of presentation and data. I have discussed, reviewed and agree with the documented history with ROS, physical findings, labs/studies, assessment and plan of care. Additions to the history, physical, assessment and plan include the followin. Ms Caballero is a 62 yo with pmh COPD on home 2 L who was admitted to an OSH with respiratory failure, started tx for a COPD exacerbation with iv steroids and was also given abx to cover CAP. She had a ct completed that showed ground glass opacities and she was [place] [facility] [place]. - Requested 2nd read on ct chest and she does have findings c/w copd as well as bilateral ground glass opacities Plan I do think that she has had a COPD exacerbation and will need iv steroids, zithromax, nebs The etiology of her GG opacities is unclear but includes atypical infection, alveolar hemorrhage, vasculitis. Will consult pulmonology for consideration of a bronch Follow up blood cultures from the OSH Rheumatologic workup for possible vasculitis has also been ordered Cady Cheema MD documented in this encounter Procedure Notes * Provider, Scanning - 11/21/2012 1:23 PM EDTAssociated Order(s): SCAN DOC: DRIER OPERATOR HEAD * Andreas Andrews MD - 11/19/2012 12:41 PM EDTAssociated Order(s): PULMONARY FUNCTION TEST Oxygen saturation on 6 L at rest was adequate. The patient was unable to perform a diffusing capacity. * Madison Baptiste RN - 11/17/2012 8:20 AM EDTAssociated Order(s): PLACE PICC LINE: CONTACT VASCULAR ACCESS PICC/Midline Insertion Procedure Note Indications: Access and Medication Administration This insertion was not to replace a malfunctioning catheter. This insertion was not due to a suspected line-associated infection. Location of Procedure: X-Ray Room 11 Risks and Benefits: The risks and benefits of this procedure were reviewed and informed consent was obtained obtained. Time Out: Prior to the start of the procedure, the patient's identity, intended procedure, site/side, correctpatient positioning and presence of the site che was confirmed as applicable. The medical history and chart were reviewed to rule out potential contraindications to the planned procedure. Hand Hygiene: The laser printing operator did perform hand hygiene prior to line insertion. Catheter type: PICC Lot number: [id number] Procedure Technique: Skin was prepped with chlorhexidine. Skin preparation agent was completely dry at the time of first skin puncture. The following barrier precaution methods were used:large sterile drape, maske/eye shield, large sterile gown, sterile gloves and cap. 3 ml of 1% Lidocaine was used for skin wheal. Ultrasound was used for guidance. Radiographic contrast agent was not injected for vein identification. Procedure Details: Order received for catheter placement. A 5 Fr. triple lumen Bard Power catheter was placed into theleft basilic vein over a 0.018 inch guidewire using modified seldinger technique and fluoroscopy. Arm circumference was 38 cm at 2 cm above the insertion site. Final catheter length (with trimming):44 cm Internal: 44 cm External: 0 cm Tip in SVC per DR. TURNER The line was not placed over a guidewire. Post Procedure: Diagnosis: SOB, HEMOPTYSIS Blood return noted on aspiration of line after placement confirmed. 5 mls of normal saline infused free flowing to gravity via PICC after insertion. Sterile dressing applied: Tegaderm and Biopatch. Findings: The patient did tolerate the procedure well. No Complications. Procedure Comments: PATIENT REQUESTED LEFT ARM SHE WILL BE ADMINISTERING HOME ANTIBIOTICS TO HERSELF. MADISON BAPTISTE RN 11/17/2012 documented in this encounter Miscellaneous Notes * Med Student Progress Note - Opal Grewal - 11/20/2012 5:20 PM EDT 24-hour events: on 2L nasal canula, desaturates to the low 90s with ambulation Subjective: Ms. Caballero feels good today except for some sinus discomfort and SOB with ambulation. She would like to have more answers about what has been causing her symptoms and understands that she will f/u with pulmonology in 1-2 weeks to get the results of any pending studies. Inpatient Medications: Scheduled Meds: ??? senna-docusate 1-2 tablet Oral BID ??? amlodipine 10 mg Oral QPM ??? predniSONE 40 mg Oral BID ??? nystatin 500,000 Units Oral TID ??? esomeprazole 40 mg Oral Daily ??? busPIRone 15 mg Oral Daily with breakfast ??? busPIRone 30 mg Oral Daily with lunch ??? cefTRIaxone 1 g Intravenous Q24H ??? azithromycin 500 mg Intravenous Q24H ??? polyethylene glycol (MIRALAX)oral powder 17 g Oral Daily ??? diclofenac 75 mg Oral BID ??? DISCONTD: senna-docusate 1 tablet Oral BID ??? amitriptyline 75 mg Oral Nightly ??? PARoxetine 40 mg Oral Daily ??? simvastatin 20 mg Oral QPM ??? sodium chloride 0.9 % 5 mL Intravenous Q12H ??? ipratropium-albuterol 3 mL Nebulization Q6H DEVANG ??? DISCONTD: amlodipine 10 mg Oral Daily Continuous Infusions: PRN Meds:.bisacodyl, calcium carbonate, diphenhydrAMINE, acetaminophen, LORazepam, ondansetron, ondansetron, ipratropium-albuterol Physical Exam: Vitals: Last value Range last 24 hrs Temperature Temp: 37.3 ??C (99.1 ??F) Temp: [36.7 ??C (98.1 ??F)-37.3 ??C (99.1 ??F)] Heart Rate Heart Rate: 82 Heart Rate: [82-95] Blood Pressure BP: 136/88 mmHg BP: (103-156)/(64-88) Respiratory Rate Resp: 18 Resp: [18-20] SpO2 SpO2: 98 % SpO2: [88 %-98 %] Gen: alert, conversant, in bed, in NAD, on nasal canula CV: RRR, tachycardic, no murmurs heard, RESP: CTAB, does not desaturate while speaking ABD: soft, mildly tender : deferred EXT: no pedal edema, 2+ pedal pulses Labs: Recent Labs Basename 11/20/12 0456 11/19/12 0437 11/18/12 0518 WBC 11.5* 15.2* 16.1* RBC 3.77* 3.68* 3.60* HGB 11.1* 10.8* 10.7* HCT 34.0 33.0* 32.1* MCV 90.2 89.7 89.2 MCH 29.4 29.3 29.7 MCHC 32.6 32.7 33.3 PLATELET 265 310 330 RDWCV 13.0 12.9 12.8 Recent Labs Basename 11/20/126 11/19/127 11/18/12 0518 NA 135 135 135 K 4.1 4.0 4.0 CL 98 100 99 CO2 29 27 27 BUN 15 17 15 CREATININE 0.65* 0.60* 0.58* Assessment: This is a 62 y.o. Female who has been responding to steroid and antibiotic treatment. She will likely be discharged to home today and we will transition her to PO antibiotics. Although wehave not been able to determine the etiology of her respiratory distress, we hope that further work-up with pulmonology will reveal an answer. At this time bronchoscopy was not planned, but this may be the next step in her work-up if her symptoms return. Plan: //Hemoptysis/Hypoxia: - Continue course of azithromycin and ceftriaxone, switch to PO azithromycin and cefpodoxime beforedischarge - Continue prednisone 40mg BID - Encourage incentive spirometry - f/u with pulmonology in 1-2 weeks as outpatient with repeat imaging in 6-8 weeks //Mouth Sores: - Continue Nystatin 500,000 units TID //Constipation: - Senna-Docusate - Miralax 17g Chronic issues: //COPD: -Continue with scheduled duonebs //Arthritis: -Diclofenac 75mg BID //Hypertension: Improved outcomes have been shown with PM dosage of blood pressure medications. This may be helpfulfor Ms. Caballero as she usually has elevated BP in the AM. -Amlodipine 10mg at night* //Depression/Anxiety: -Amytriptyline 75mg -Paroxetine 40mg //Ppx: FEN: full diet DVT: enoxaparin Disposition: Ready for discharge today with home PT. Will f/u with PCP and pulmonology in 1-2 weeks. * Plan of Care - Gen Lehman RN - 11/20/2012 1:45 PM EDT Problem: Knowledge Deficit (Adult, Pediatric, , NICU, Obstetric) Goal: Knowledge Deficit: Knowledgeable about Subject/Topic Outcome: Outcome achieved Date Met: 11/20/12 Patient Guidelines for Self-Care after PICC (Peripherally Inserted Central Catheter) Removal Your PICC was removed on 11/20/12 at 1345 An antibiotic ointment was applied to the insertion site (where the PICC went into your skin). __X____Betadine ointment was used (a dark reddish brown color, and should not be confused with blood) Bacitracin ointment was used. (a clear ointment). The nurse applied gauze and a transparent ( see-through) dressing over the insertion site. To help your PICC insertion site heal: *Avoid heavy lifting (for example, no more than a gallon of milk) or vigorous activities for 24 hours * Keep the dressing over the insertion site dry for 24 hours * You can remove the dressing after 24 hours. Call your doctor after your PICC has been removed if you experience any of the following: * Fever (temperature over 100.1F) * Chills * Drainage from the insertion site ( including bleeding). Remember the Betadine antibiotic ointment, if used, was to protect your skin when the PICC was removed, can look like blood! *Redness, warmth, pain, swelling, or a pink/red streak going up your arm *A knot at the insertion site or anywhere in the arm *If bleeding should occur, hold firm pressure for 3-5 minutes. Do not remove the dressing that the nurse put on when the PICC was removed.. If needed, apply another dressing over the first dressing. If bleeding does not stop, call or seek medical attention. * Initial Assessments - Sofia Hodges PT - 11/20/2012 11:17 AM EDT Physical Therapy Evaluation Patient profile: Pt. is a 62 y.o. female admitted on 11/15/2012 by Forest Becker MD with SOB, hemoptysis, PMH: Past Medical History Diagnosis Date ??? COPD (chronic obstructive pulmonary disease) ??? Anxiety ??? Depression ??? Hypertension ??? Arthritis ??? GERD (gastroesophageal reflux disease) ??? Hepatitis C No past surgical history on file. Social History: Patient lives with her partner and children [place], [place] Stairs: 5 with one rail to enter. Baseline Mobility/Equipment at home: Pt uses 2L 02 at home, no assistive device for ambulation. Pt has a walk in shower without grab bar or seat. Pt works to increase her activity level by walking asoften as she can. Precautions/Special Considerations: resp, Subjective: ???I was doing so well until I got sick. Now I'll have to start all over again. Pt c/oSOB with mobility Objective: Pt seen for evaluation today. Pain: no c/o pain during evaluation Mental Status: alert, oriented to person, place, and time Musculoskeletal: Pt is (R) hand dominant ROM/Strength: WFL, knee hypermobility Sensation: WFL Bed Mobility: Supine>Sit: without assistance Transfers: Sit><Stand: without assistance Gait: Distance:150' Device used: no assistive device Level of assist: Supervision, assistance for IV pole Gait pattern: decreased reciprocal arm swing Pt. to utilize no assistive device and supervision for ambulation with nursing. Stairs: Pt amb up/down 5 stairs with 1 railing with supervision, [id number] technique Balance: Sitting: Pt able to maintain unsupported sitting balance EOB Standing:Pt able to maintain standing balance without assistive device Informed Consent: The patient agrees to and understands the PT treatment plan and goals. Education: patient has been educated on Exercise, Breathing exercises, Safety and Role of therapy and demonstrates understanding. Patient status, treatment, and mobility recommendations discussed with nursing. Assessment: Pt tolerated today???s evaluation well. The pt would benefit from increasing activity level while in hospital. In preparation for safe discharge home. Goals: Safe discharge plan Plan: Pt to be discharged home. Patient agrees with plan as stated above. Total time spent with patient: 30 minutes evaluation Total timed interventions: 0 minutes SOFIA HODGES PT 11/20/2012 Pager: [phone] Physical Therapy Rehabilitation Department * Discharge Summary - Forest Carpio MD - 11/20/2012 10:23 AM EDT [facility] Medicine - Discharge Summary Patient Name: Isra Caballero Patient Age: 62 y.o. Birthdate: 1950 Admit date: 11/15/2012 Discharge date and time: 11/20/2012 Attending Physician: Forest Carpio MD Follow-up Recommendations for Providers: Patient has follow up with her primary care provider Dr. Newberry on MondayNovember 26 at 1110 am and with [facility] [place] on December 04 at 3pm. She will need repeating CT Chest imaging in 6-8 weeks, which Pulmonology will arrange. Pt stated UTD on immunizations including Influenza and pneumococcus; please verify as outpatient. Anti-GBM, immunoglobulin levels, and hypersensitivity pneumonitis panel results are pending, will need results followed up as outpatient. Discharge Diagnoses (Hospital Problems): COPD exacerbation Operations/Major Procedures: None History of Presentation (From H&P on 11/15/2012): From H&P on 11/15/2012,Patient is a 62 y.o. female with a history of COPD (2 L oxygen dependent), strep miliari pneumonia s/p decortication in past, history of smoking, hepatitis C, and HTN presented to an outside hospital with worsening shortness of breath for the past week. A CT scan showed diffuse fibrotic emphysematous changes with concern for vasculitis. The patient was given duonebs, ceftriaxione, azithromycin, and IV steroids. Transfer[place] [facility] [place]. Her symptomsstarted a few months ago with a sinus infection that wouldn't go away. Went to a primary care and was prescribed antibiotics without any relief. One week ago her oxygen saturations were going down toaround 75% and she became worried since this has never happened before. She normally uses 2 L of nasal cannula oxygen at home for her COPD and was still short of breath. Also has been having a productive cough with yellow phlegm over the past few weeks. Endorses subjective fevers but denies any night sweats. Yesterday she began coughing up blood the size of a nickel with some clots. This happenedsix times. No history of previous hemoptysis. Other symptoms diizziness that has been waxing and waning. Denies any hematuria or decreased urine output. Denies any nausea, vomiting, diarrhea, chest pain, palpitations, or unintentional weight loss. Hospital Course: Patient presented to an outside hospital with worsening shortness of breath and scant hemoptysis for the past week. A CT scan showed diffuse fibrotic emphysematous changes with some ground glass opacities raising concern for an inflammatory lung disease. She was [place] [facility] [place]. Treatment was initiated for a COPD exacerbation with methylprednisolone and duonebs. She was started on vancomycin and zosyn for empiric coverage of pneumonia, and blood, sputum, and urine cultures were sent. A CTD / vasculitis workup was initiated including ANGIE (neg), C-ANCA (neg), P-A NCA (neg), and Anti-GBM (pending). Pulmonology was consulted. The decision was made to transition her antibiotic coverage to ceftriaxone and azithromycin for CAP and bettery atypical pneumonia coverage. Blood culture showed no growth and sputum culture was consistent with normal respiratory micah. Additional labs were initiated including viral DFA and legionella antigen which were negative. Her respiratory status improved gradually each day and she was weaned to 3L nasal cannula oxygen. Patientcontinued to improve and her shortness of breath was near her baseline on 11/19/2012. Physical therapy walked with her around the halls and she did well. She was cleared for discharge with continued home oxygen and will follow up with Pulmonology on December 04. Pulmonology will arrange repeat CT chest imaging in 6-8 weeks to re-evaluate. Patient was instructed to continue azithromycin and cefpodoxime for 5 days more after discharge, and her steroids will be tapered. Important Studies and Lab Data: Recent Labs Basename 11/20/1245511/19/1243611/18/1251711/17/1243511/16/12221 WBC 11.5* 15.2* 16.1* 16.0* 10.6* HGB 11.1* 10.8* 10.7* 10.4* 10.9* PLATELET 265 310 330 318 314 Recent Labs Basename 11/20/1245511/19/1243611/18/1251711/17/1243511/16/12221 NA 135 135 135 134* 136 K 4.1 4.0 4.0 4.2 4.3 CL 98 100 99 99 100 CO2 29 27 27 25 25 BUN 15 17 15 15 14 CREATININE 0.65* 0.60* 0.58* 0.63* 0.64* GLUCOSE 166 193 203* 198 202* Recent Labs Basename 11/20/1245511/19/1243611/18/1251711/15/122011 CALCIUM 8.3* 8.4* 8.4* -- MAGNESIUM -- -- -- 0.91 PHOS -- -- -- 3.5 Recent Labs Basename 11/17/1243511/15/122011 AST 15 21 ALT 25 28 ALKPHOS 66 77 BILITOT 0.5 0.5 BILIDIR 0.1 0.1 Recent Labs Basename 11/15/122011 INR 1.0 Lab Results Component Value Date CHLPL 138 02/23/2010 HDL 39* 02/23/2010 CHOLHDL 3.5 02/23/2010 TRIG 81 02/23/2010 LDLCHOL 83 02/23/2010 OTHER LABS: 11/15 PR3 Pending MPO Pending C-ANCA Negative P-ANCA Negative 11/16 ANGIE Negative Anti-GBM Pending 11/17 Legionella Negative Rapid Resp Viral panel Negative 11/18 Hypersens Pneumonitis Pending Microbiology: 11/15 Blood Cx x2: NGTD 11/16 Sputum Cx Normal Respiratory Micah Pertinent radiology/diagnostic studies: Re-Read outside Chest CT 11/15 Findings As seen on prior, there is a background of extensive centrilobular emphysematous change with upper lobe predominance. Since the prior however, there has been interval development of irregular interstitial septal thickening throughout both lungs with upper lung zone predominance most pronounced in the periphery of the left upper lung and superior segment left lower lobe and accompanied by peripheral areas of developing honeycombing architectural distortion suggesting a component of fibrotic change. There is accompanying patchy ground-glass bilaterally, which is nonspecific and suggestive of inflammatory or possibly an infectious process or alternatively hemorrhage. No bronchiectasis is identified. There are numerous small subcentimeter mediastinal lymph nodes as well as a approximately 2.4 x 1.3 cm right hilar lymph node on axial image 40 of series 4, presumably reactive. No axillary lymphadenopathy. No pleural or pericardial effusions of the tectum. No thoracic aortic aneurysm. 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 Visualized upper abdominal viscera are grossly unremarkable save for a suspected small sliding-type hiatal hernia. Advanced multilevel disc degenerative changes in the thoracic spine most pronounced at T1-T2 and T7-T8 where there is suspected partial ankylosis. There is additional 5 mm anterolisthesis C7 on T1, presumably related to advanced facet arthropathy at that level. Impression 1. Underlying upper lobe predominant centrilobular emphysema with interval development of irregular interstitial septal thickening with upper lung zone predominance and developing peripheral honeycombing/fibrotic changes most pronounced in the left upper lobe superior segment left lower lobe. 2. Accompanying patchy ground-glass opacities throughout both lungs, as above. Differential considerations for ground-glass opacities would include hemorrhage is well as other inflammatory infectious alveolitis/process. Discharge Conditions/Prognosis: Upon discharge the pt is hemodynamically stable, fully ambulatory requiring her baseline supplemental oxygen Discharge to: Home with Discharge Medications: Current Discharge Medication List New Meds Dose Details azithromycin (ZITHROMAX) 500 mg tablet 500 mg Take 1 tablet by mouth 2 times daily for 5 days. Qty: 10 tablet Refills: 0 cefPODoxime (VANTIN) 200 mg tablet 200 mg Take 1 tablet by mouth 2 times daily for 5 days. Qty: 10 tablet Refills: 0 predniSONE (DELTASONE) 20 mg tablet Please take 3 tablets po for 4 days; then 2 tablets po for 4 days; then 1 tablet po for 4 days; then 1/2 tablet po for 4 days Qty: 30 tablet Refills: 0 LORazepam (ATIVAN) 0.5 mg tablet 0.5 mg Take 1 tablet by mouth every 6 hours as needed for Anxiety. Qty: 30 tablet Refills: 0 busPIRone (BUSPAR) 15 mg tablet 15 mg Take 1 tablet by mouth 2 times daily. Take 1 tab PO qam, 2 tabs PO qpm Qty: 90 tablet Refills: 3 nystatin (MYCOSTATIN) 100,000 unit/mL suspension 500,000 Units Take 5 mLs by mouth 3 times daily asneeded. Qty: 60 mL Refills: 0 Continued medications with revised dosing Dose Details amitriptyline (ELAVIL) 75 mg tablet 75 mg Take 1 tablet by mouth nightly. Qty: 90 tablet Refills: 3 amlodipine (NORVASC) 10 mg tablet 10 mg Take 1 tablet by mouth daily. Qty: 30 tablet Refills: 3 fluticasone-salmeterol (ADVAIR DISKUS) 500-50 mcg/dose diskus inhaler 1 puff Inhale 1 puff into thelungs 2 times daily. Qty: 1 Inhaler Refills: 0 levalbuterol (XOPENEX) 0.63 mg/3 mL nebulizer solution 0.63 mg Take 3 mLs by nebulization every 4 hours as needed for Wheezing. Qty: 3 mL Refills: 0 omeprazole (PRILOSEC) 20 mg capsule 20 mg Take 1 capsule by mouth daily. Qty: 90 capsule Refills: 3 PARoxetine (PAXIL) 40 mg tablet 40 mg Take 1 tablet by mouth every morning. Qty: 90 tablet Refills: 3 simvastatin (ZOCOR) 20 mg tablet 20 mg Take 1 tablet by mouth nightly. Qty: 90 tablet Refills: 3 tiotropium (SPIRIVA WITH HANDIHALER) 18 mcg inhalation capsule 18 mcg Inhale 1 capsule into the lungs daily. Qty: 90 capsule Refills: 0 Continued medications, unchanged Dose Details DICLOFENAC SODIUM/MISOPROSTOL (ARTHROTEC 50 ORAL) CIS Free Text Med - BuSpar ERGOCALCIFEROL, VITAMIN D2, (VITAMIN D ORAL) ibuprofen (ADVIL;MOTRIN) 800 mg tablet 800 MG = 1 Tablet(s), PO, Three times daily UNREVIEWED medications Dose Details ipratropium-albuterol (DUONEB) 0.5 mg-3 mg(2.5 mg base)/3 mL nebulizer solution 3 mLs penicillin v potassium (VEETID) 500 mg tablet Updated Allergies/ADRs: Allergies Allergen Reactions ??? Alendronate Sodium CIS [...] NIGHTMARES, CIS - NIGHTMARES, CIS - NIGHTMARES Instructions Given to Patient at Discharge: Provider Instructions Instruction after leaving the hospital Why you were hospitalized: COPD exacerbation Call your doctor or seek medical attention if you experience any alarming symptoms: This may include, but is not limited to; chest pain, severe shortness of breath, nausea with vomiting, persistent decreased urinary output, severe pain, new onset weakness/paralysis, severe headache or any other concerning symptoms Activity level: As tolerated, no new restrictions. Diet: No new restrictions Driving: You should not drive if you are taking any opioids/narcotics (oxycodone, etc). Shower/Bath: No new restrictions Home O2: Continue home oxygen Changes in Your Medications: New Medications: You have been prescribed antibiotics: azithromycin 500 mg twice daily and cefpodoxime 200 mg twice daily. Please take these medications daily for 5 days. You have also been prescribed prednisone, please take as directed. Specific instructions related to your condition: Please continue to take your home medications. You have been prescribed azithromycin 500 mg twice daily and cefpodoxime 200 mg twice daily for 5 days, please continue to take these medications for 5 days after discharge. Please take prednisone as prescribed until you follow up with [facility] on December 04 at 3 pm. If your shortness of breath becomes worse or your have increased cough, sputum production, or fevers please seek medical attention or visit your primary care provider. You will need to follow up with your primary care provider on Monday, Nov 26 at 1110 am . Follow-Up Appointments Date and Time Provider and Specialty Location December 04 @ 3 pm [facility] Nov 26 @ 11:10 am NAYANA NEWBERRY MD Your Inpatient Doctor(s) at [facility] Forest Carpio MD Your Primary Care Provider: NAYANA NEWBERRY MD [phone] Future Appointments and Orders Future Appointments: Provider: Department: Dept Phone: Center: 12/04/2012 2:45 PM Melani Ware MD Pulmonology [phone] [facility] Joint Appt Nurse Res-Pulmonary B [phone] [facility] 12/04/2012 3:30 PM Wm De Leon MD Pulmonology [phone] [facility] For questions regarding this document or issues relating to this hospitalization on the Medical Service, please contact your inpatient physician through the [facility] . Issues afterhours and on weekends will be handled by the Hospitalist staff on-call. Provider Contact Information: NAYANA NEWBERRY MD Signed: Franklyn Carr MD PGY-1, Internal Medicine FOREST CARPIO MD * Plan of Care - Shavonne Gil RN - 11/19/2012 3:23 PM EDT Problem: COPD, Chronic Bronchitis/Emphysema (Adult) Intervention: Minimize O2 Consumption Pt alert and oriented times three, vital signs stable. Pt continues to require 2L NC. Up ambulatingin kwon, 02 saturations stable (mid-low 90's) during ambulation . Complaining of headache, relievedwith PRN tylenol. Will continue to monitor and inform MD of any changes. * Med Student Progress Note - Opal Grewal - 11/19/2012 11:48 AM EDT 24-hour events: no acute overnight events. Oxygen weaned to 2L with good saturation, patient given nystatin 3 times/daily, suppository given to encourage BM. Hypersensitivity pneumonitis panel sent. Subjective: Patient feels fine, but has some mouth pain under her tongue and on the right side of her mouth. She did have a small bowel movement yesterday after 1 week of constipation. She still has some sinus pain and congestion. Inpatient Medications: Scheduled Meds: ??? predniSONE 40 mg Oral BID ??? nystatin 500,000 Units Oral TID ??? esomeprazole 40 mg Oral Daily ??? DISCONTD: methylPREDNISolone sodium succinate (PF) 40 mg Intravenous BID ??? senna-docusate 1 tablet Oral BID ??? busPIRone 15 mg Oral Daily with breakfast ??? busPIRone 30 mg Oral Daily with lunch ??? cefTRIaxone 1 g Intravenous Q24H ??? azithromycin 500 mg Intravenous Q24H ??? polyethylene glycol (MIRALAX)oral powder 17 g Oral Daily ??? diclofenac 75 mg Oral BID ??? amitriptyline 75 mg Oral Nightly ??? amlodipine 10 mg Oral Daily ??? PARoxetine 40 mg Oral Daily ??? simvastatin 20 mg Oral QPM ??? sodium chloride 0.9 % 5 mL Intravenous Q12H ??? ipratropium-albuterol 3 mL Nebulization Q6H DEVANG Continuous Infusions: PRN Meds:.bisacodyl, calcium carbonate, diphenhydrAMINE, acetaminophen, LORazepam, ondansetron, ondansetron, ipratropium-albuterol Physical Exam: Vitals: Last value Range last 24 hrs Temperature Temp: 36.9 ??C (98.4 ??F) Temp: [36.9 ??C (98.4 ??F)-37.2 ??C (99 ??F)] Heart Rate Heart Rate: 98 Heart Rate: [78-98] Blood Pressure BP: 131/79 mmHg BP: (131-151)/(73-83) Respiratory Rate Resp: 19 Resp: [16-20] SpO2 SpO2: 96 % SpO2: [91 %-99 %] Gen: alert, conversant, patient lying comfortably in bed, on nasal canula HEENT: mucous membranes moist, 2 yellow macules under right side of tongue and several pinpoint sized white macules, no ulceration noted, CV: RRR, S1, S2, no murmurs noted RESP: CTAB, coughing with deep inspiration ABD: soft, nontender, distended, BS present : deferred EXT: no edema, radial and pedal pulses 2+ NEURO: 5/5 strength BLE SKIN: right quintero ecchymosis decreasing in size Labs: Recent Labs Basename 11/19/1243611/18/1251711/17/12435 WBC 15.2* 16.1* 16.0* RBC 3.68* 3.60* 3.52* HGB 10.8* 10.7* 10.4* HCT 33.0* 32.1* 31.5* MCV 89.7 89.2 89.5 MCH 29.3 29.7 29.5 MCHC 32.7 33.3 33.0 PLATELET 310 330 318 RDWCV 12.9 12.8 12.8 Recent Labs Basename 11/19/1243611/18/1251711/17/12435 NA 135 135 134* K 4.0 4.0 4.2 CL 100 99 99 CO2 27 27 25 BUN 17 15 15 CREATININE 0.60* 0.58* 0.63* Assessment: This is a 62 y.o. female who has been recovering from an acute respiratory decline withtreatment of antibiotics (IV ceftriaxone and azithromycin) in addition to IV methylprednisolone. Her oxygen saturations have been improving with decreased oxygen requirement, now at her home requirement of 2L. We will continue her antibiotic course for 10 days (she is now on day 4) and begin to taper her steroid dosage. We will also transition her to PO medications and schedule a PT consult. Plan: //Hemoptysis/Hypoxia: - Continue course of azithromycin and ceftriaxone, switch to PO azithromycin and cefpodoxime tomorrow - Continue prednisone, and adjust dose to 40mg BID - Encourage incentive spirometry - f/u with pulmonology in 1-2 weeks as outpatient with repeat imaging in 6-8 weeks //Mouth Sores: - Continue Nystatin 100,000 units TID //Constipation: - Bisacodyl suppository - Miralax 17g Chronic issues: //COPD: -Continue with scheduled duonebs //Arthritis: -Diclofenac 75mg BID //Hypertension: -amlodipine 10mg //Depression/Anxiety: -Amytriptyline 75mg -Paroxetine 40mg //Ppx: FEN: full diet, monitor sodium levels DVT: concern for hemoptysis, but could start enoxaparin Disposition: likely discharged home tomorrow with PO medications, f/u with pulmonology in 1-2 weeks. * Plan of Care - Karina Hernandez RN - 11/18/2012 6:45 PM EDT Problem: Trauma/Injury Risk (Adult, Obstetric) Goal: Trauma/Injury Risk: Absence of Trauma/Injury/Falls Patient complains of generalized pain, in mouth and joints. Nystatin increased to 3 times daily. Ptcomplains of heartburn, relieved with Tums. Pt given suppository, with medium results. Repositions self frequently. Problem: Respiratory Insufficiency (Adult, Obstetric) Goal: Respiratory Insufficiency: Effective Respiration Patient weaned to 2L SpO2, tolerating well. SpO2 drops to 88% with activity. Ambulates to bathroom/commode. Sitting up in bed. Given nebulizer as scheduled. * Med Student Progress Note - Opal Grewal - 11/18/2012 10:18 AM EDT 24-hour events: no acute overnight events, from nursing she was able to shower and no longer needs a keenan catheter because she can ambulate to toilet on her own. Her oxygen requirement has been decreased from 6L to 4L. She was given Vicodin once for generalized pain and has been receiving nystatinfor oral pain. PICC placement yesterday. Subjective: Ms. Caballero explains that she feels better today. She still has 5/10 pain in her mouth and that the nystatin treatment helps. She felt that she has cleared her sinuses and this has decreased her facial pain. While in bed her breathing is fine and able to get the spirometer to 2000, but she when she tries to ambulate she gets fatigued. The last time she coughed up blood was last night and it was a dark red/brown color. She has still not had a bowel movement despite miralax and senna-docusate. Inpatient Medications: Scheduled Meds: ??? methylPREDNISolone sodium succinate (PF) 40 mg Intravenous BID ??? DISCONTD: methylPREDNISolone sodium succinate (PF) 80 mg Intravenous Daily ??? hydroCODone-acetaminophen 1 tablet Oral Once ??? senna-docusate 1 tablet Oral BID ??? busPIRone 15 mg Oral Daily with breakfast ??? busPIRone 30 mg Oral Daily with lunch ??? nystatin 500,000 Units Oral BID ??? cefTRIaxone 1 g Intravenous Q24H ??? azithromycin 500 mg Intravenous Q24H ??? polyethylene glycol (MIRALAX)oral powder 17 g Oral Daily ??? diclofenac 75 mg Oral BID ??? amitriptyline 75 mg Oral Nightly ??? amlodipine 10 mg Oral Daily ??? PARoxetine 40 mg Oral Daily ??? simvastatin 20 mg Oral QPM ??? sodium chloride 0.9 % 5 mL Intravenous Q12H ??? ipratropium-albuterol 3 mL Nebulization Q6H DEVANG ??? DISCONTD: methylPREDNISolone sodium succinate (PF) 80 mg Intravenous Q8H DEVANG Continuous Infusions: PRN Meds:.bisacodyl, acetaminophen, LORazepam, ondansetron, ondansetron, ipratropium-albuterol Physical Exam: Vitals: Last value Range last 24 hrs Temperature Temp: 37.1 ??C (98.8 ??F) Temp: [36.4 ??C (97.5 ??F)-37.1 ??C (98.8 ??F)] Heart Rate Heart Rate: 88 Heart Rate: [72-88] Blood Pressure BP: 138/65 mmHg BP: (118-152)/(44-80) Respiratory Rate Resp: 20 Resp: [16-20] SpO2 SpO2: 92 % SpO2: [92 %-100 %] I/O: Intake/Output Summary (Last 24 hours) at 11/18/12 1018 Last data filed at 11/18/12 0826 Gross per 24 hour Intake 2320 ml Output 4300 ml Net -1980 ml Patient Vitals for the past 168 hrs: Weight 11/16/12 0648 91.9 kg (202 lb 9.6 oz) 11/16/12 0000 91.9 kg (202 lb 9.6 oz) 11/15/12 1820 91.9 kg (202 lb 9.6 oz) Gen: well-nourished, alert, conversant, in bed, in NAD HEENT: tongue is dry, 2-3 yellow macules under tongue, no coating on tongue CV: RRR, S1, S2 RESP:CTA posteriorly, diminished anterior breath sounds, ABD: BS present, tender, distended : deferred EXT: no LE edema, pedal pulses 2+ NEURO: strength 5/5 VALENTINO and BLE, SKIN: R quintero ecchymosis, decreasing in size Labs: Recent Labs Basename 11/18/12 0511/17/12 0436 11/16/12 0222 WBC 16.1* 16.0* 10.6* RBC 3.60* 3.52* 3.69* HGB 10.7* 10.4* 10.9* HCT 32.1* 31.5* 32.9* MCV 89.2 89.5 89.2 MCH 29.7 29.5 29.5 MCHC 33.3 33.0 33.1 PLATELET 330 318 314 RDWCV 12.8 12.8 12.9 Recent Labs Basename 11/18/1251711/17/126 11/16/12 0222 NA 135 134* 136 K 4.0 4.2 4.3 CL 99 99 100 CO2 27 25 25 BUN 15 15 14 CREATININE 0.58* 0.63* 0.64* C-ANCA- negative [id number] Microbiology: Sputum culture- few mixed bacterial morphotypes suggestive of normal upper respiratory micah. Negative Legionella urinary antigen. Assessment: 62 y.o. Female with improving SOB and hemoptysis with decreasing oxygen requirement, now at 4L O2. She has been continuing with her antibiotic course of azithromycin and ceftriaxone and has been receiving IV methylprednisolone. We are awaiting nasal culture results and immunological stud ies. Plan: //Hemoptysis/Hypoxia: Hemoptysis has almost completely resolved, likely due to steroid treatment. There is persistent hypoxia from baseline. She appears to have improved symptoms, but we will monitor for 1-2 days for stabilization before considering discharge. In the meantime we are awaiting blood work and cultures to determine if a vasculitic process or perhaps a fungal infection may be the cause of her acute respiratory decline. We may consider doing a bronchoscopy if our other work-up is negative. - Continue weaning oxygen use to goal of home oxygen requirement of 2L or less with POx of 93-95% - Continue course of azithromycin and ceftriaxone - Continue methylprednisolone, and adjust dose to 40mg BID - Encourage incentive spirometry //Mouth Sores: - Continue Nystatin 500,000 units BID //Constipation: - Bisacodyl suppository Chronic issues: //COPD: -Continue with scheduled duonebs //Arthritis: -Diclofenac 75mg BID //Hypertension: -amlodipine 10mg //Depression/Anxiety: -Amytriptyline 75mg -Paroxetine 40mg //Ppx: FEN: Full diet DVT: may restart enoxaparin tomorrow if hemoptysis does not resume in the interval Disposition: monitor for 1-2 days and bring oxygen use to baseline before discharge * Plan of Care - Karina Hernandez RN - 11/17/2012 6:34 PM EDT Problem: Skin Integrity Impairment, Risk/Actual (Adult, Obstetric) Goal: Skin Integrity Impairment, Risk/Actual: Skin Integrity/Wound Healing Pt showered and washed hair. Patient used shower chair, set-up and assisted back to bed. Problem: COPD, Chronic Bronchitis/Emphysema (Adult) Goal: Prevent/Manage Potential Problems Based on my scope of practice, I assessed for signs and symptoms of potential problems that could be present as documented. Pt educated on SpO2 and oxygen demand. Pt verbalizes understanding, would benefit from continued teaching. Pt up to commode frequently. Urine samples sent. Nasopharyngeal swap sent. Problem: Respiratory Insufficiency (Adult, Obstetric) Goal: Respiratory Insufficiency: Effective Respiration Pt on 4L, SpO2 ranging from 80-90's. Pt SpO2 drops with activity. Pt encouraged to cluster care.Given PRN neb prior to dinner. Pt complains of generalizes joint pain, given one time dose of Vicodin. Pt given tylenol 650 mg prior to dinner, states pain is constant at 5/10. Pt requesting Nystatin more frequently to assist with Thrush. States it is difficult to eat due to the discomfort of her mouth. * Miscellaneous - Provider, Scanning - 11/17/2012 4:14 PM EDT * Miscellaneous - Provider, Scanning - 11/17/2012 4:14 PM EDT * Plan of Care - Tree Gotti RN - 11/17/2012 6:34 AM EDT Problem: COPD, Chronic Bronchitis/Emphysema (Adult) Goal: Prevent/Manage Potential Problems Based on my scope of practice, I assessed for signs and symptoms of potential problems that could be present as documented. Outcome: Present (see interventions, notes) Pt with MEZA, Pt up to bathroom, desat to 80's on O2 at 6 l/min. Pt breathing labored after exertion, encouraged to use pursed lip breathing. Pt given Bedside commode, able to tolerate easier, less exertion and dyspnea. * Plan of Care - mario Tuttle Rn, Whitney Latham RN - 11/16/2012 6:25 PM EDT Problem: Knowledge Deficit (Adult, Pediatric, , NICU, Obstetric) Goal: Knowledge Deficit: Knowledgeable about Subject/Topic Outcome: Outcome achieved Date Met: 11/16/12 .Peripherally Inserted Central Catheter (PICC) Teaching Sheet Peripherally inserted central catheters (jmwa-[id number]) (PICC) are used when you need IV (intravenous) medicines and fluids. A catheter is a small flexible plastic tube. The catheter is put in througha vein under your skin. A vein is a tube inside your body that carries blood from the body to the heart. The catheter is usually put into a vein on the inside of your upper arm. Then it is threaded up this vein and ends in the blood vessel near your heart. The PICC catheter may be used for taking blood for laboratory tests. You may also get IV fluids andmedicines quickly and easily. Having the catheter may keep your arm from being stuck many times with a needle. The catheter will have 1-3 small tails (tubes) coming from your arm where the catheter was put in. Why do I need a PICC line or midline catheter? PICC lines are used for terminal system operator treatments. PICC lines may be used for up to a year. They areoften put in to give you IV medicines at home. You may need a PICC catheter because caregivers cannot use smaller veins in your body. Smaller veins may be damaged, or they may have poor blood flow. ??? Catheters are also used in case of emergency when you would need medicines or fluids very quickly. ??? The following are medicines and treatments you may get when you have a PICC line. ? Antibiotics. These are medicines to prevent infection. ? Frequent blood sample collection. ? IV medicines that would make your smaller veins sore or damaged. ? Receiving IV fluids for a long period of time. ? Pain medicine. ? Total Parenteral Nutrition: This is also called TPN. TPN is a special liquid food that goes directly into your veins. ? Blood ? Chemotherapy (Medicine for cancer) What are the benefits of having a PICC line put in? Having a PICC line may keep your arm from being stuck many times with a needle to draw blood orstart an IV (intravenous catheter) . ??? Through a PICC catheter, you may have blood taken for tests. You may also get IV fluids and medicines quickly and easily. ??? Small veins can be damaged or irritated by certain drugs or nutritional solutions. A PICC line helps to decrease vein irritation from antibiotics, IV pain drugs, or IV cancer drugs. ??? A PICC line can be left in place when you go home. If you go home with a PICC line in place, home care can be set up via the nurse Collection Development Librarian to help you. What are possible complications of having a PICC line put in? Some possible complications are: ??? bruising, swelling, or infection in the arm with the PICC line ??? mal-positioned catheter (catheter tip in wrong place) ??? occlusion (blocked catheter) ??? mechanical phlebitis (vein irritation) and thrombosis (clot) Your doctor is the person you should talk to if you have questions about what would happen if you do not choose to have a PICC line put in. Your doctor can talk to you about other choices you may have. What should I expect when it is put in? A written consent that gives your ok to have it put in needs to be signed after you understand thatyou are going to have a PICC put in, and all your questions about the procedure have been answered to your satisfaction. This is a safety feature that the hospital practices before doing procedures. An experienced nurse who has been through special training and education will be putting this catheter in. The procedure is done in a specially equipped room in Interventional Radiology on the third floor. The PICC nurse will first talk to you about any questions that you may have. The PICC nurse will explain to you what is going to be done before starting. Once you arrive in the procedure room in Interventional Radiology, the PICC nurse will then set up for the procedure. She will unwrap the sterile kit and open the needed supplies. A gown and mask andgloves will be worn while putting it in. An ultrasound machine will be used to help guide the catheter in the right place. This machine uses a handle with sound waves to find the vein. The area on your arm where the catheter will be put in is then numbed with a medicine put under your skin with a tiny needle. The nurse will then put in the catheter using fluoroscopy (a type of x-ray) as a guide. Once the catheter is in your vein, it will be threaded up your arm to the area beforeyour heart. While it is being threaded, you may be asked to turn your head. When the catheter is in, the nurse will place a small dressing on the site along with a little campa which will help keep the catheter in place. After the procedure is done, a radiologist (doctor in x-ray department) will look at your x-ray to make sure that the end of the catheter is in proper position to give your fluids and/or medications. What should I expect in the care of my PICC? A dressing that is specially made to prevent infections will be put on. After this, the dressing will only be changed once a week unless it needs it sooner. If you go home with the catheter in, you may take a shower as long as you keep the site dry. You can do this by wearing a specially fitted PICC protector that will be provided to you before dischargefrom the hospital. The dressing at the site must be kept clean and dry. It is important that you watch for signs of infection at the site. Your healthcare provider should be notified if these occur: ??? Redness ??? Swelling ??? Pus ??? Pain at the site Other reasons to notify your healthcare provider are: ??? Catheter becomes partially or totally removed ??? Unable to infuse medication/fluid ??? Unable to draw back blood from the catheter. This may be an early sign that a clot is forming on the end of the catheter. If this occurs, a medicine called Cathflo may be used to dissolve this clot. Ask the PICC nurse or your doctor, any questions you may have so you feel secure in consenting to having a PICC line. References: Vascular Access Device Selection, Insertion, and Management, [employer] 01/19. A Review of the Efficacy, Safety, Use, and Administration of Cathflo, [employer] 2005 * Plan of Care - Karina Hernandez RN - 11/16/2012 6:23 PM EDT Problem: COPD, Chronic Bronchitis/Emphysema (Adult) Goal: Prevent/Manage Potential Problems Based on my scope of practice, I assessed for signs and symptoms of potential problems that could be present as documented. Patient arrived to floor at 1430 in wheelchair with RN. On 6L, dyspneic with any activity. Pt has had multiple infiltrates, left forearm infiltrate of NS. Pt complains of pain, Team assessed and started on Vicodin. Pt oriented to room, alert and oriented. Rings appropriately. * Med Student Progress Note - Opal Grewal - 11/16/2012 4:31 PM EDT 24-hour events: no acute overnight events Subjective: Patient had a relatively good night. She feels somewhat better compared to yesterday, but still does not feel up to ambulating. She has a keenan catheter in place because she is unable to get to toilet. She does have a headache and maxillary pain. In addition her tongue and gums are painful. She has not had a bowel movement in 5 days. Inpatient Medications: Scheduled Meds: ??? hyaluronidase (ovine) 1-10 mL Subcutaneous Once ??? senna-docusate 1 tablet Oral BID ??? busPIRone 15 mg Oral Daily with breakfast ??? busPIRone 30 mg Oral Daily with lunch ??? nystatin 500,000 Units Oral BID ??? cefTRIaxone 1 g Intravenous Q24H ??? azithromycin 500 mg Intravenous Q24H ??? polyethylene glycol (MIRALAX)oral powder 17 g Oral Daily ??? diclofenac 75 mg Oral BID ??? DISCONTD: busPIRone 15 mg Oral BID ??? DISCONTD: ibuprofen 200 mg Oral Daily ??? amitriptyline 75 mg Oral Nightly ??? amlodipine 10 mg Oral Daily ??? PARoxetine 40 mg Oral Daily ??? simvastatin 20 mg Oral QPM ??? sodium chloride 0.9 % 5 mL Intravenous Q12H ??? methylPREDNISolone sodium succinate (PF) 80 mg Intravenous Q8H DEVANG ??? ipratropium-albuterol 3 mL Nebulization Q6H DEVANG ??? DISCONTD: methylPREDNISolone sodium succinate (PF) 80 mg Intravenous Daily ??? DISCONTD: cefTRIaxone 1 g Intravenous Q24H ??? DISCONTD: azithromycin 500 mg Intravenous Q24H ??? DISCONTD: vancomycin 1 g Intravenous Q12H ??? DISCONTD: Vancomycin Level - MAR Order Reminder NOT APPLICABLE Once ??? DISCONTD: piperacillin-tazobactam 3.375 g Intravenous Q8H ??? DISCONTD: ipratropium-albuterol 3 mL Nebulization Q6H DEVANG Continuous Infusions: PRN Meds:.acetaminophen, LORazepam, DISCONTD: LORazepam, ondansetron, ondansetron, ipratropium-albuterol, DISCONTD: ipratropium-albuterol Physical Exam: Vitals: Last value Range last 24 hrs Temperature Temp: 37 ??C (98.6 ??F) Temp: [36.6 ??C (97.9 ??F)-37 ??C (98.6 ??F)] Heart Rate Heart Rate: 87 Heart Rate: [72-88] Blood Pressure BP: 141/70 mmHg BP: (117-152)/(57-126) Respiratory Rate Resp: 19 Resp: [14-31] SpO2 SpO2: 95 % SpO2: [92 %-100 %] I/O: Intake/Output Summary (Last 24 hours) at 11/16/12 1632 Last data filed at 11/16/12 1500 Gross per 24 hour Intake 2815 ml Output 4950 ml Net -2135 ml Patient Vitals for the past 168 hrs: Weight 11/16/12 0648 91.9 kg (202 lb 9.6 oz) 11/16/12 0000 91.9 kg (202 lb 9.6 oz) 11/15/12 1820 91.9 kg (202 lb 9.6 oz) Gen: alert, conversant, laying in bed, on nasal canula HEENT: submandibular tender lymphadenopathy, tongue is dry, but not coated CV: RRR, S1, S2, no murmurs RESP: diffuse inspiratory crackles, tachypneic ABD: soft, distended, diffuse tenderness, BS present : keenan catheter in place NEURO: 5/5 strength BUE and BLE SKIN: right quintero echymosis Labs: Recent Labs Basename 11/16/1222111/15/122011 WBC 10.6* 12.8* RBC 3.69* 3.51* HGB 10.9* 10.5* HCT 32.9* 31.1* MCV 89.2 88.6 MCH 29.5 29.9 MCHC 33.1 33.8 PLATELET 314 291 RDWCV 12.9 12.9 Recent Labs Basename 11/16/1222111/15/122011 NA 136 129* K 4.3 4.4 CL 100 93* CO2 25 23 BUN 14 12 CREATININE 0.64* 0.70 Microbiology: Blood cultures pending Assessment: This is a 62 y.o. Female with SOB and hemoptysis who is responding to steroid and antibiotic treatment while we investigate the cause of her recent respiratory distress. She has underlying emphysema which is likely contributing to her symptoms, but it is not clear if she has a concurrent pneumonia or if she has a systemic process such as vasculitis. We are waiting for serology studiesto help elucidate the cause. Plan: //Hemoptysis: - Continue on supplementary oxygen, if O2 saturation remains in high 90s begin to decrease oxygen content - Continue with azithromycin and ceftriaxone - Continue methylprednisolone //Headaches: - start with conservative pain management with NSAIDs - antibiotic treatment may need to be broadened if this headache is due to persistent sinus infection //Mouth Sores: May be due to thrush for which she was treated at the previous hospital. Perhaps it is viral in etiology such as HSV1. We can consider and antiviral like acyclovir, or an analgesic so she can tolerate eating her meals. //Keenan Catheter: If patient can ambulate with assistance, consider d/c keenan catheter. Chronic issues: //Arthritis: -Diclofenac 75mg BID //Hypertension: -amlodipine 10mg //Depression/Anxiety: -Amytriptyline 75mg -Paroxetine 40mg //Ppx: FEN: full diet DVT: hold enoxaparin until hemoptysis resolves * Consult Note - Andreas Andrews MD - 11/16/2012 9:24 AM EDT Inpatient Pulmonary - Consultation Note Date of Consultation: 11/16/2012 Reason for Consult: We are seeing Isra Caballero at the request of Dr. Christel Cheema of the Medicine service for the evaluation of SOB/hemoptysis. I have reviewed the available records, interviewed, and examined the patient. History of Present Illness: Ms. Isra Caballero is a 62 yo female with a PMH notable for COPD (on 2L supplemental O2), multiple episodes of PNA (ICU stay in 2004, strep miliari PNA s/p decortication [id number] or 2010, PNA in 06/2012 s/p a fall), hypertension, anxiety/depression, and hepatitis C who was [place] [facility] [place]B/hemopty[place]. The patient reports that approximatelytwo months ago she had a sinus infection for which she went to her PCP who gave her a ten day course of ?amoxicillin. At the time she reported having tenderness of her frontal/maxillary sinus, migraines, and her heart rate was elevated above her usually with exertion. She went back five days later to her PCP as she did not feel like she was improving at which time she was prescribed Augmentin x 14 days. She started feeling slightly better but a few weeks ago she noted her SpO2 dropping to 75% with any type of exertion (ie walking to bathroom; brushing her teeth to 75%. She reports not feelingSOB with rest; only MEZA. Due to concerns about her desaturations she went to the ED in [place], [place] approximately two weeks ago where a CT/X-ray was performed which per the patient looked okay andshe was given steroids. She did not feel any better and her SpO2 continued to drop with exertion. She went back [place] on 11/12/12, at this time her chest felt congested/tight/heavy. CT at that time showed centrilobar emphysema, worse in ED[place],as well as diffuse ground glass opacities bilaterally. She received duonebs, ceftriazone, azithromycin, and IV steroids. Gram stain of sputum from the OSH showed GPC. On the night of 11/14/12, she started to cough up blood (mostly specks). Thenext more she was bringing up nickel sized amounts of blood. She reports that she developed a coughabout a week ago which initially brought up white sputum that then turned meza/yellow. The patient reports that prior to her PNA this year she would use supplemental oxygen 2-3 hours per week with exertion (particularly hiking); however after her PNA she would require oxygen with any activity; she was only without oxygen when in bed. The patient reports that she painted a room in her house, but that this was after her symptoms were already present. Review of Systems: Constitutional: Low grade fevers, chills, weight loss, night sweats, appetite loss HEENT: Mouth feels sore, rhinorrhea, otalgia Cardiac: Chest pain, palpitations, orthopnea, PND Pulm: SOB, cough, hemoptysis, wheezing Abd: Nausea (intermittent), vomiting, abdomina pain, diarrhea, constipation : Dysuria, frequency, urgency, hematuria Rectum: Melena, BRBPR MSK: Myalgias (legs, shoulders, neck), joint pain Heme: Easy bleeding/bruising Skin: Rashes Psych: Anxious, depressed Past Medical History Diagnosis Date ??? COPD (chronic obstructive pulmonary disease) ??? Anxiety ??? Depression ??? Hypertension ??? Arthritis ??? GERD (gastroesophageal reflux disease) ??? 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; 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 (+)Cervical LAD; lymph node on left side TTP Cardio: Distant heart sounds. Normal s1/s2. Normal rate. Regular rhythm. No murmurs/rubs/gallops. Resp: Accessory muscle use. Decreased breath sounds throughout. Crackles on left base. Abd: (+)BS. Soft. ND. Mildly tender to palpation diffusely. No guarding. No rebound. Ext: No BLE. 2+ DP/PT pulses bilaterally. Neuro: AAO x 3. Non-focal. Skin: Ecchymoses on bilateral upper/lower extremities. Laboratory reviewed and notable for: Mild leukocytosis (12-->10), no eosinophilia, normocytic anemia (Hgb 10) Initial mild hyponatremia that has resolved (129-->136), otherwise normal renal function Elevated glucose (180-202) Normal LFTs Elevated CRP (68.6) UA with proteinuria (30) and hematuria, as well as multiple bacteria Pending: MPO Ab Proteinase-3 Ab Cytoplasmic Neutrophilic Ab Microbiology: Urine Culture, 11/16: pending Blood Culture, 11/15: pending Sputum Culture, 11/16: pending Radiology: CT Chest from OSH, 11/14/12 - Underlying upper lobe predominant centrilobular emphysema, interval development of irregular interstitial septal thickening with upper lung zone predominance and developing peripheral honeycombing/fibrotic changes most pronounced in the left upper lobe superior segment left lower lobe. - Patchy ground-glass opacities throughout both lungs Assessment: Ms. Isra Caballero is a 62 yo female with a PMH notable for COPD (on 2L supplemental O2), strep milleri pneumonia in 02/2011 s/p decortication, PNA in 06/2012 s/p a fall, hypertension, anxiety/depression, and hepatitis C who was [place] [facility] [place] of SOB/hemoptysis. Her presentation is most consistent with a diffuse pulmonary inflammatory process, possibly a syndrome of diffuse alveolar hemorrhage, given her bloody sputum. Ddx for diffuse alveolar hemorrhage includes Jass's/Granulomatosis Polyangitiitis (GPA), Microscopic Polyangiitis (MPA), Churg Laura, Goodpasture's, RPGN and Lupus. Her clinical presentation certainly has many features of Jass's (GPA), including nasal and oral inflammation (+ oral ulcers and sinusitis), infiltrates on radiograph, abnormal urinary sediment, including hematuria and subnephrotic range proteinuria. ENT findings are also more common in GPA than MPA, and it is also not uncommon to see normal renal function, which this pt has,in an earlier presentation of GPA. Lastly, this pt has had a long history of normocytic anemia, which can also be seen in GPA. Both an increased diffusion capacity, and ANCA results, will help delineate the etiology of her presentation. Her presentation is less consistent with Churg Laura, as shedoesn't have a history of asthma, eosinophilia, or neuropathy. Her subacute worsening in her respira tory status, as well as the non-focal radiographic findings are not strongly suggestive of infection, though if an infection where part of her pathology, legionella or viral infection would be most likely. Again, neither her history nor radiographic findings are suggestive of malignancy, making that very unlikely. Recommendations: -diffuse capacity in pulmonary clinic today; if positive, would confer that she has diffuse alveolar hemorrhage -if going to continue treating for infection, would switch antibiotics to CTX and Azithro to cover CAP including atypicals -send ANGIE to r/o lupus, viral DFA panel, legionella antigen, and anti GBM antibodies to r/o Goodpastures -f/u on ANCA studies; C ANCA would be more suggestive of GPA, P ANCA would be more consistent with MPA Concha Riddle, PGY-2 Pulmonary Consult Personal Pager [phone] 11/16/2012 Pulmonary Attending Patient seen and examined; data and radiographic studies reviewed; management discussed with medical team. My findings agree with those outlined by Dr. Riddle, whose note reflects our jointly formulated plan of care. Mrs. Caballero is a complex patient who, in addition to moderately severe emphysema, had an episode of acute respiratory failure in 2004 that was in many ways similar to her current illness. She now presents with a subacute process spanning several weeks to a few months. I think an infectious etiology is unlikely: she has had a paucity of constitutional symptoms, does not appear ill, and the CT findings of diffuse GGO (superimposed upon her emphysema) are atypical for most infectious processes. Herrecent hemoptysis raises the possibility of an alveolar hemorrhage (AH) syndrome, though it's possible her mild hemoptysis is unrelated, and she has some other non-infectious inflammatory process. We'll send for DLCO measurement today -- if elevated, it would point towards AH; if low, it won't be helpful. She has a number of serological studies that are pending and that could provide useful diagnostic information. Depending upon the above, as well as her clinical course over the next few days, we'll need to decide if further diagnostic studies, such as bronchoscopy or biopsy, should be considered. * Plan of Care - Aren Childers RN - 11/16/2012 12:56 AM EDT Problem: Skin Integrity Impairment, Risk/Actual (Adult, Obstetric) Goal: Skin Integrity Impairment, Risk/Actual: Skin Integrity/Wound Healing Assessment of current condition: Patients skin is intact, some areas of ecchymosis present. Plan of care: Patient is able to reposition herself independently. She is tolerating a [facility] diet. Interventions: Encourage frequent repositioning Encourage PO intake Monitor and assess skin every shift and PRN Problem: Trauma/Injury Risk (Adult, Obstetric) Goal: Trauma/Injury Risk: Absence of Trauma/Injury/Falls Patient not out of bed this shift. Room maintained to be clutter free and with adequate lighting. Slip resistant socks to bilateral feet. Bed in lowest position, call solis within reach, and bed alarmactivated and audible. * Med Student H&P - Opal Grewal - 11/15/2012 8:34 PM EDT Internal Medicine Admission History and Physical Patient info: Name: sIra Caballero (1950) Service: [facility] Team PCP: NAYANA NEWBERRY MD PCP phone number: [phone] Responsible Attending:Gulshan Rosa MD Chief Complaint: increasing SOB and hemoptysis History of Present Illness: Ms. Caballero has a history of emphysema and hypertension and describes theonset of her current symptoms as starting a few months ago when she had a sinus infection. At the time she visited her PCP and was treated with antibiotics. She felt that she never recovered from this episode and continued to have a productive cough. About 2 weeks ago she noticed that she had been desaturating to the 70s at home even while on her baseline of 2L of oxygen. This concerned her sinceshe had never seen her saturations go that low and went to her local hospital in [place]. She was admitted and discharged shortly after and then readmitted one week later because of increasing SOB and oxygen desaturation. She reports that yesterday she started coughing up blood of about nickel sized quantities. She continues to cough up blood today. The last time she remembers coughing up blood was when she had a lung abscess. While at [facility], Ms. Caballero was treated with antibiotics azithromycin and ceftazadime. She also received IV antibiotics. As a part of her workup she had a CXR, CT scan, echocardiogram, and a rheumatology blood work-up. The CT showed diffuse fibrosis with underlying emphysematous changes. Review of Systems: Gen: (-) weight change, fevers, chills HEENT: (+) migraines, sore mouth and neck, lightheadedness CV: (+) no chest pain Resp: (+) coughing up blood, pain when coughing GI: (+) constipation, no BM for 5 days, (-) nausea, vomiting, diarrhea : (-) frequency, pain with urination Musculoskeletal: (+)osteoarthritis Neuro: (-) weakness Skin: (+) bruise on right quintero from fall (-) rashes Past Medical History There is no problem list on file for this patient. Past Medical History Diagnosis Date ??? COPD (chronic obstructive pulmonary disease) ??? Anxiety ??? Depression ??? Hypertension ??? Arthritis ??? GERD (gastroesophageal reflux disease) ??? Hepatitis C Past Surgical History Broken nose and collarbone- 1967 Bilateral Thumb surgery-2003 Lung Abscess decortication-2008 Medications: No current facility-administered medications on file prior to encounter. Current Outpatient Prescriptions on File Prior to Encounter Medication Sig Dispense Refill ??? fluticasone-salmeterol (ADVAIR DISKUS) 500-50 mcg/dose diskus inhaler ??? PARoxetine (PAXIL) 40 mg tablet ??? amitriptyline (ELAVIL) 75 mg tablet ??? DICLOFENAC SODIUM/MISOPROSTOL (ARTHROTEC 50 ORAL) ??? omeprazole (PRILOSEC) 20 mg capsule ??? tiotropium (SPIRIVA WITH HANDIHALER) 18 mcg inhalation capsule ??? CIS Free Text Med - BuSpar ??? amlodipine (NORVASC) 10 mg tablet ??? levalbuterol (XOPENEX) 0.63 mg/3 mL nebulizer solution ??? ERGOCALCIFEROL, VITAMIN D2, (VITAMIN D ORAL) ??? ibuprofen (ADVIL;MOTRIN) 800 mg tablet 800 MG = 1 Tablet(s), PO, Three times daily ??? penicillin v potassium (VEETID) 500 mg tablet 500 MG = 1 Tablet(s), PO, Four times daily Allergies: Allergies Allergen Reactions ??? 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 Physical Examination: Gen: NAD, AAOx3, in bed HEENT: NCAT, EOMI, PERRL, no scleral icterus or discharge. No nasal discharge. Oropharynx with dry mucous membranes, submandibular lymphadenopathy, and posterior oropharynx erythema Neck: submandibular lymphadenopathy CV: RRR, Radial and pedal pulses +2. Lungs: diminished breath sounds, inspiratory crackles at bases, diffuse wheezes Abd: Soft, Mildly distended, diffuse tenderness to palpation, Normoactive bowel sounds. No CVA tenderness. Ext: Trace pedal edema. No cyanosis or clubbing Skin: No rashes, ecchymosis on right quintero and bilaterally forearms Neuro/MSK: Cranial nerves II-XII intact. Strength 5/5 BUE and BLE. Sensation intact to light touch throughout extremities. Labs: Recent Results (from the past 24 hour(s)) POCT GLUCOSE Component Value Range POC Glucose 180 60 - 199 mg/dL CBC (WITH DIFF) Component Value Range WBC 12.8 (*) 4.0 - 10.0 x10(3)/mcL RBC 3.51 (*) 3.93 - 5.22 x10(6)/mcL Hemoglobin 10.5 (*) 11.2 - 15.7 gm/dL Hematocrit 31.1 (*) 34.0 - 45.0 % MCV 88.6 79.0 - 94.0 fL MCH 29.9 26.6 - 32.2 pg MCHC 33.8 32.0 - 36.5 gm/dL Platelets 291 145 - 370 x10(3)/mcL RDWSD 41.6 35.0 - 46.0 fL RDWCV 12.9 10.9 - 14.4 % MPV 8.3 (*) 9.0 - 12.0 fL BASIC METABOLIC PANEL (NON-FASTING) Component Value Range Glucose Lvl 180 60 - 199 mg/dL BUN 12 8 - 18 mg/dL Creatinine 0.70 0.70 - 1.20 mg/dL Sodium 129 (*) 135 - 145 mmol/L Potassium 4.4 3.5 - 5.0 mmol/L Chloride 93 (*) 98 - 107 mmol/L CO2 23 22 - 31 mmol/L Anion Gap 13 5 - 15 mmol/L Calcium 9.0 8.5 - 10.5 mg/dL Estimated GFR >60 >=60 PROTHROMBIN TIME Component Value Range PT 13.5 12.0 - 15.0 sec INR 1.0 0.9 - 1.1 HEPATIC FUNCTION PANEL Component Value Range Total Protein 6.6 6.4 - 8.3 gm/dL Albumin 3.8 3.2 - 5.2 gm/dL AST 21 0 - 30 unit/L ALT 28 0 - 30 unit/L Alk Phos 77 40 - 104 unit/L Total Bilirubin 0.5 0.2 - 1.3 mg/dL Bili, Direct 0.1 0.0 - 0.3 mg/dL MAGNESIUM Component Value Range Magnesium 0.91 0.69 - 1.07 mmol/L PHOSPHORUS Component Value Range Phosphorus 3.5 2.5 - 4.5 mg/dL HIGH SENSITIVITY CRP Component Value Range CRP High Sens 68.6 SEDIMENTATION RATE, AUTOMATED Component Value Range Sed Rate 40 (*) 0 - 20 mm/hr DIFFERENTIAL, MANUAL Component Value Range Neutrophil % 79 (*) 34 - 71 % Band % 4 0 - 12 % Lymphocyte % 7 (*) 19 - 53 % Monocyte % 4 4 - 13 % Metamyelo % 5 (*) 0 - 0 % Myelocyte % 1 (*) 0 - 0 % Neutrophil Abs 10.1 (*) 1.5 - 6.3 x10(3)/mcL Band Abs 0.5 0.2 - 0.6 x10(3)/mcL Neutr Abs (ANC) 10.60 (*) 1.50 - 6.30 x10(3)/mcL Lymphocyte Abs 0.9 (*) 1.0 - 3.6 x10(3)/mcL Monocyte Abs 0.5 0.2 - 1.0 x10(3)/mcL Metamyelo Abs 0.6 (*) 0.0 - 0.0 x10(3)/mcL Myelocyte Abs 0.1 (*) 0.0 - 0.0 x10(3)/mcL Tot Diff Cell Ct 100 Plat Estimate Normal RBC Morphology Normal Microbiology: Blood and urine cultures: pending Imaging: Impression 1. Underlying upper lobe predominant centrilobular emphysema with interval development of irregular interstitial septal thickening with upper lung zone predominance and developing peripheral honeycombing/fibrotic changes most pronounced in the left upper lobe superior segment left lower lobe. 2. Accompanying patchy ground-glass opacities throughout both lungs, as above. Differential considerations for ground-glass opacities would include hemorrhage is well as other inflammatory infectious alveolitis/process. Assessment: This is a 62 y.o. Female with a 30-pack year smoking history and emphysema who is presenting with increasing SOB and hemoptysis. Laboratory studies are significant for mildly elevated WBCwith a left shift, elevated sedimentation rate, hyponatremia and hypochloremia. Imaging demonstrates centrilobular emphysema, fibrotic changes, and patchy ground-glass opacities. It is possible that has a pneumonia with a COPD exacerbation. She does report an ongoing bacterial sinus infection that may have progressed into a pneumonia. The hemoptysis is concerning and the differential includes vasculitis, bronchitis, TB, malignancy, in addition to pneumonia. TB is unlikely as she does not have any of the typical risk factors (international travel, time spent in assisted, immunocompromised,). Malignancy is still a possibility especially in light of her smoking history, but at the moment there are no clear findings on CT. We will continue to work-up the possibility of a vasculitis with blood tests for anti-GBM antibodies and ANCAs. If this doesn't provide a more definitive answer wemay pursue a bronchoscopy to obtain a biopsy sample. WBC elevation may be due to steroid treatment that she has been receiving since being admitted to an outside hospital. The elevated ESR rate suggests an inflammatory process which may be causing her respiratory distress. Plan: //Hemoptysis: - continue to treat with antibiotics ceftriaxone 1g and azithromycin 500mg for CAP - IV methylprednisolone 80mg Q8HR //COPD - Duoneb treatment (Ipatroprium-albuterol) Q2HR //Oral pain Her oral pain may be due to thrush which she had been treated for at the OSH with nystatin. - treat with Nystatin 4ml (400,000 units) oral suspension - provide analgesics for mouth pain //Hypertension: - Amlodipine 10mg //Constipation: Patient has not had a bowel movement for 4 days. - Treat with Miralax //Keenan Patient has difficulty getting to the toilet and has a Keenan catheter in place. -Monitor urine color and amount //PPx: - DVT: hold enoxaparin until hemoptysis resolves - GI: can be on full diet - Other: //Code Status: Full Code documented in this encounter Plan of Treatment Pending Results Name Type Priority Associated Diagnoses Date /Time XR VAS venous access (PICC placement) Imaging Routine 11/17/2012 9:24 AM EDT Scheduled Orders Name Type Priority Associated Diagnoses Orde r Schedule XR VAS venous access (PICC placement) Imaging Routine Once PRN (for R adiant use) for 1 Occurrences starting 11/16/2012 until 11/16/2012 documented as of this encounter Procedures Procedure Name Priority Date/Time Associated Diagnosis Comments DRIER OPERATOR HEAD SCAN 11/21/2012 1:23 PM EDT IMMUNOGLOBULINS, QUANTITATIVE Routine 11/20/2012 1:40 PM EDT DIFFERENTIAL, MANUAL Routine 11/20/2012 4:56 AM EDT CBC (WITH DIFF) Routine 11/20/2012 4:56 AM EDT BASIC METABOLIC PANEL Routine 11/20/2012 4:56 AM EDT COMMON PULMONARY FUNCTION TEST Routine 11/19/2012 12:42 PM EDT DIFFERENTIAL, MANUAL Routine 11/19/2012 4:37 AM EDT CBC (WITH DIFF) Routine 11/19/2012 4:37 AM EDT BASIC METABOLIC PANEL Routine 11/19/2012 4:37 AM EDT HYPERSENSITIVITY PNEUMONITIS SCREEN Routine 11/18/2012 4:35 PM EDT RESP VIRUS AG PANEL STAT 11/18/2012 1 0:07 AM EDT RESP VIRUS AG PANEL STAT 11/18/2012 8 :24 AM EDT SCAN, PERIPHERAL BLOOD Routine 3 5:18 AM EDT DIFFERENTIAL, AUTOMATED Routine 11/19/19 13 5:18 AM EDT CBC (WITH DIFF) Routine 11/18/2012 5:18 AM EDT BASIC METABOLIC PANEL Routine 11/18/2012 5:18 AM EDT RESP VIRUS AG PANEL STAT 11/17/2012 1 0:19 AM EDT LEGIONELLA URINARY ANTIGEN Routine 11/17/2012 10:03 AM EDT URINALYSIS WITH REFLEX CULTURE Routine 11/17/2012 10:[address] PICC LINE: CONTACT VASCULAR ACCESS Routine 11/17/2012 9:06 AM EDT DIFFERENTIAL, AUTOMATED Routine 11/18/19 13 4:36 AM EDT CBC (WITH DIFF) Routine 11/17/2012 4:36 AM EDT HEPATIC FUNCTION PANEL Routine 3 4:36 AM EDT BASIC METABOLIC PANEL Routine 11/17/2012 4:36 AM EDT GLOMERULAR BASEMENT MEMBRANE ANTIBODY IGG Routine 11/16/2012 12:56 PM EDT ANGIE ANTIBODY SCREEN Routine 11/16/2012 1 2:56 PM EDT LOWER RESPIRATORY CULTURE Routine 11/16/2012 8:37 AM EDT URINE CULTURE Routine 11/16/2012 8:21 AM EDT URINE HOLD Routine 11/16/2012 7:56 AM EDT URINALYSIS WITH REFLEX CULTURE Routine 11/16/2012 7:56 AM EDT DIFFERENTIAL, MANUAL Routine 11/16/2012 2:22 AM EDT CBC (WITH DIFF) Routine 11/16/2012 2:22 AM EDT BASIC METABOLIC PANEL Routine 11/16/2012 2:22 AM EDT CYTOPLASMIC NEUTROPHILIC AB Routine 11/15/2012 8:12 PM EDT PROTEINASE-3 ANTIBODY Routine 11/15/2012 8:12 PM EDT MYELOPEROXIDASE AB Routine 11/15/2012 8: 12 PM EDT DIFFERENTIAL, MANUAL Routine 11/15/2012 8:12 PM EDT BLOOD CULTURE STAT 11/15/2012 8:12 PM EDT BLOOD CULTURE STAT 11/15/2012 8:12 PM EDT SEDIMENTATION RATE Routine 11/15/2012 8: 12 PM EDT PROTHROMBIN TIME Routine 11/15/2012 8:12 PM EDT CBC (WITH DIFF) Routine 11/15/2012 8:12 PM EDT CRP, CARDIAC RISK (HS CRP) Routine 11/15/2012 8:12 PM EDT PHOSPHORUS Routine 11/15/2012 8:12 PM EDT MAGNESIUM Routine 11/15/2012 8:12 PM EDT HEPATIC FUNCTION PANEL Routine 3 8:12 PM EDT BASIC METABOLIC PANEL Routine 11/15/2012 8:12 PM EDT REQUEST FOR 2ND READ CT CHEST Routine 11/15/2012 8:03 PM EDT EKG 12-LEAD STAT 11/15/2012 7:48 PM EDT SOB (shortness of breath) POCT GLUCOSE Routine 11/15/2012 6:24 PM EDT documented in this encounter Results * SCAN DOC: DRIER OPERATOR HEAD (11/21/2012 1:23 PM EDT) Anatomical Region Laterality Modality Other Narrative 11/21/2012 1:36 PM EDT Procedure Note Provider, Scanning - 11/21/2012 1:23 PM EDT Scanning Provider MEDIA MGR SCAN EXT O RDR/RSLT * (ABNORMAL) Immunoglobulins, Quantitative (11/20/2012 1:40 PM EDT) Immunoglobulin G 618(L) 700 - 1600 mg/dL CERNER MILLENNIUM IgA 109 70 - 400 mg/dL CERNER MILLENNIUM IgM 71 40 - 230 mg/dL CERNER MILLENNIUM Blood specimen (specimen) 11/20/2012 1:40 PM EDT 11/20/2012 1:50 PM EDT Narrative Resulting Agency Comment Spec In Lab Forest Carpio MD CHEMISTRY ORDERABL ES CERNER MILLENNIUM * (ABNORMAL) Differential, Manual (11/20/2012 4:56 AM EDT) Pathologist [facility] Segmented Neutrophils Manual 85(H) 34 - 71 % CERNER MILLENNIUM Band % 1 0 - 12 % CERNER MILLENNIUM Lymphocyte Manual 7(L) 19 - 53 % CE RNER MILLENNIUM Monocyte Manual 1(L) 4 - 13 % CERN ER MILLENNIUM Metamyelocyte Manual 6(H) 0 - 0 % CERNER MILLENNIUM Segs Absolute Manual 9.8(H) 1.5 - 6.3 x10(3)/mc L CERNER MILLENNIUM Band Abs 0.1(L) 0.2 - 0.6 x10(3)/mc L CERNER MILLENNIUM ANC 9.89(H) 1.50 - 6.30 x10(3)/mc L CERNER MILLENNIUM Lymph Absolute Manual 0.8(L) 1.0 - 3.6 x10(3)/mc L CERNER MILLENNIUM Monocyte Absolute Manual 0.1(L) 0.2 - 1.0 x10(3)/mc L CERNER MILLENNIUM [place] Absolute Manual 0.7(H) 0.0 - 0.0 x10(3)/mc L CERNER MILLENNIUM Total Cells Ct 100 CERNE R MILLENNIUM Plat estimate Normal CERNER MILLENNIUM RBC Morphology Normal CERNE R MILLENNIUM Plat, Giant Less than 1 /HPF CERNER MILLENNIUM Blood specimen (specimen) 11/20/2012 4:56 AM EDT 11/20/2012 4:57 AM EDT Narrative Resulting Agency Comment Spec In Lab Gulshan Rosa MD HEMATOLOGY ORDER IGOR CERNER MILLENNIUM * (ABNORMAL) Basic Metabolic Panel (non-fasting) (11/20/2012 4:56 AM EDT) Glucose 166 60 - 199 mg/dL CERNER MILLENNIUM Comment:Diabetes: >=200 mg/d L plus symptoms Blood Urea Nitrogen 15 8 - 18 mg/dL CERNER MILLENNIUM Creatinine 0.65(L) 0.70 - 1.20 mg/dL CERNER MILLENNIUM Comment: Please note that the pediatric reference intervals supplied above were not validated [place] [facility] [place] Results from pediatric patients should be interpreted in conjunction to the patient's age, height and muscle mass. Sodium 135 135 - 145 mmol/L CERNER MILLENNIUM Potassium 4.1 3.5 - 5.0 mmol/L CERNER MILLENNIUM Comment: Please note: ??Patients with WBC >100,000 may have falsely elevated Potassium levels. ??For accurate Potassium quantification in these patients send serum separator tube (gold top) for subsequent determinations. ??Contact the Clinical Chemistry Laboratory if there are any questions. Chloride 98 98 - 107 mmol/L CERNER MILLENNIUM Carbon Dioxide 29 22 - 31 mmol/L CERNER MILLENNIUM Anion Gap 8 5 - 15 mmol/L CERNER MILLENNIUM Calcium 8.3(L) 8.5 - 10.5 mg/dL CERNER MILLENNIUM Est [...] internet browser. http://www.nkdep.nih.gov/lab-evaluation.shtml http://www.kidney.org/professionals/ Blood specimen (specimen) 11/20/2012 4:56 AM EDT 11/20/2012 4:57 AM EDT Narrative Resulting Agency Comment Spec In Lab Gulshan Rosa MD CHEMISTRY ORDERA BLES Performing Organization Address [facility] Co de Phone Number CERNER MILLENNIUM * (ABNORMAL) CBC (with Diff) (11/20/2012 4:56 AM EDT) White Blood Cell 11.5(H) 4.0 - 10.0 x10(3)/mc L CERNER MILLENNIUM Red Blood Cell 3.77(L) 3.93 - 5.22 x10(6)/mc L CERNER MILLENNIUM Hemoglobin 11.1(L) 11.2 - 15.7 gm/dL CERNER MILLENNIUM Hematocrit 34.0 34.0 - 45.0 % CERNER MILLENNIUM Mean Cell Volume 90.2 79.0 - 94.0 fL CERNER MILLENNIUM Mean Cell Hemoglobin 29.4 26.6 - 32.2 pg CERNER MILLENNIUM Mean Cell Hemoglobin Concentration 32.6 32.0 - 36.5 gm/dL CERNER MILLENNIUM Platelet 265 145 - 370 x10(3)/mc L CERNER MILLENNIUM RDW Standard Deviation 42.3 35.0 - 46.0 fL CERNER MILLENNIUM RDW coefficient of variation 13.0 10.9 - 14.4 % CERNER MILLENNIUM Mean Platelet Volume 8.3(L) 9.0 - 12.0 fL CERNER MILLENNIUM Blood specimen (specimen) 11/20/2012 4:56 AM EDT 11/20/2012 4:57 AM EDT Narrative Resulting Agency Comment Spec In Lab Gulshan Rosa MD HEMATOLOGY ORDER IGOR Performing Organization Address City/[facility]/ZIP Co de Phone Number CERNER MILLENNIUM * Pulmonary Function Testing (11/19/2012 12:42 PM EDT) Narrative Andreas Andrews MD - 11/19/2012 12:42 PM EDT Andreas Andrews MD ? 11/19/2012 12:42 PM Oxygen saturation on 6 L at rest was adequate. ??The patient was unable to perform a diffusing capacity. Procedure Note Anrdeas Andrews MD - 11/19/2012 12:41 PM EDT Oxygen saturation on 6 L at rest was adequate. The patient was unable toperform a diffusing capacity. Gulshan Rosa MD PFT ORDERABLES * (ABNORMAL) Differential, Manual (11/19/2012 4:37 AM EDT) Segmented Neutrophils Manual 78(H) 34 - 71 % CERNER MILLENNIUM Band % 1 0 - 12 % CERNER MILLENNIUM Lymphocyte Manual 8(L) 19 - 53 % CE RNER MILLENNIUM Monocyte Manual 7 4 - 13 % CERN ER MILLENNIUM Metamyelocyte Manual 2(H) 0 - 0 % CERNER MILLENNIUM Myelocyte Manual 4(H) 0 - 0 % CER NER MILLENNIUM Segs Absolute Manual 11.8(H) 1.5 - 6.3 x10(3)/mc L CERNER MILLENNIUM Band Abs 0.2 0.2 - 0.6 x10(3)/mc L CERNER MILLENNIUM ANC 11.98(H) 1.50 - 6.30 x10(3)/mc L CERNER MILLENNIUM Lymph Absolute Manual 1.2 1.0 - 3.6 x10(3)/mc L CERNER MILLENNIUM Monocyte Absolute Manual 1.1(H) 0.2 - 1.0 x10(3)/mc L CERNER MILLENNIUM [place] Absolute Manual 0.3(H) 0.0 - 0.0 x10(3)/mc L CERNER MILLENNIUM Myelo Absolute Manual 0.6(H) 0.0 - 0.0 x10(3)/mc L CERNER MILLENNIUM Total Cells Ct 100 CERNE R MILLENNIUM Plat estimate Normal CERNER MILLENNIUM RBC Morphology Normal CERNE R MILLENNIUM Blood specimen (specimen) 11/19/2012 4:37 AM EDT 11/19/2012 4:52 AM EDT Narrative Resulting Agency Comment Spec In Lab Gulshan Rosa MD HEMATOLOGY ORDER IGOR CERNER MILLENNIUM * (ABNORMAL) Basic Metabolic Panel (non-fasting) (11/19/2012 4:37 AM EDT) [facility] Glucose 193 60 - 199 mg/dL CERNER MILLENNIUM Comment:Diabetes: >=200 mg/d L plus symptoms Blood Urea Nitrogen 17 8 - 18 mg/dL CERNER MILLENNIUM Creatinine 0.60(L) 0.70 - 1.20 mg/dL CERNER MILLENNIUM Comment: Please note that the pediatric reference intervals supplied above were not validated [place] [facility] [place] Results from pediatric patients should be interpreted in conjunction to the patient's age, height and muscle mass. Sodium 135 135 - 145 mmol/L CERNER MILLENNIUM Potassium 4.0 3.5 - 5.0 mmol/L CERNER MILLENNIUM Comment: Please note: ??Patients with WBC >100,000 may have falsely elevated Potassium levels. ??For accurate Potassium quantification in these patients send serum separator tube (gold top) for subsequent determinations. ??Contact the Clinical Chemistry Laboratory if there are any questions. Chloride 100 98 - 107 mmol/L CERNER MILLENNIUM Carbon Dioxide 27 22 - 31 mmol/L CERNER MILLENNIUM Anion Gap 8 5 - 15 mmol/L CERNER MILLENNIUM Calcium 8.4(L) 8.5 - 10.5 mg/dL CERNER MILLENNIUM Est [...] internet browser. http://www.nkdep.nih.gov/lab-evaluation.shtml http://www.kidney.org/professionals/ Blood specimen (specimen) 11/19/2012 4:37 AM EDT 11/19/2012 4:52 AM EDT Narrative Resulting Agency Comment Spec In Lab Gulshan Rosa MD CHEMISTRY ORDERA BLES Performing Organization Address [facility] de Phone Number CERNER MILLENNIUM * (ABNORMAL) CBC (with Diff) (11/19/2012 4:37 AM EDT) White Blood Cell 15.2(H) 4.0 - 10.0 x10(3)/mc L CERNER MILLENNIUM Red Blood Cell 3.68(L) 3.93 - 5.22 x10(6)/mc L CERNER MILLENNIUM Hemoglobin 10.8(L) 11.2 - 15.7 gm/dL CERNER MILLENNIUM Hematocrit 33.0(L) 34.0 - 45.0 % CERNER MILLENNIUM Mean Cell Volume 89.7 79.0 - 94.0 fL CERNER MILLENNIUM Mean Cell Hemoglobin 29.3 26.6 - 32.2 pg CERNER MILLENNIUM Mean Cell Hemoglobin Concentration 32.7 32.0 - 36.5 gm/dL CERNER MILLENNIUM Platelet 310 145 - 370 x10(3)/mc L CERNER MILLENNIUM RDW Standard Deviation 41.4 35.0 - 46.0 fL CERNER MILLENNIUM RDW coefficient of variation 12.9 10.9 - 14.4 % CERNER MILLENNIUM Mean Platelet Volume 8.2(L) 9.0 - 12.0 fL CERNER MILLENNIUM Blood specimen (specimen) 11/19/2012 4:37 AM EDT 11/19/2012 4:52 AM EDT Narrative Resulting Agency Comment Spec In Lab Gulshan Rosa MD HEMATOLOGY ORDER IGOR Performing Organization Address [facility] Co de Phone Number CERCHAPINCITO SIEGELIUM * Hypersensitivity Pneumonitis Panel (11/18/2012 4:35 PM EDT) Hyper Pneum IgG Test ?Result ??Flag ??Unit ??RefValue ------ Hypersensitivity Pneum IgG Ab, S ??Aspergillus fumigatus, IgG ?9.3 ? mg/L ??<=102 ?Ab, S ??Micropolyspora faeni, IgG ? <2.0 ?mg/L ??<=13.2 ?Ab, S Analyte Specific Reagent: This test was developed and its performance characteristics determined by [facility]. It has not been cleared or approved by the U.S. Food and Drug Administration. ??Thermoactinomyce s vulgaris, ?? <2.0 ?mg/L ??<=23.9 ?IgG Ab Analyte Specific Reagent: This test was developed and its performance characteristics determined by [facility]. It has not been cleared or approved by the U.S. Food and Drug Administration. Test Performed by: [place] [address] Binder Operator: Bryant Marinelli III, M.D. TEMITOPE SHANESHYLA Blood specimen (specimen) 11/18/2012 4:35 PM EDT 11/19/2012 8:39 AM EDT Narrative Resulting Agency Comment Spec In Lab Forest Carpio MD LAB SEND OUT ORDER IGOR TEMITOPE GAUTAM * Rapid Respiratory Virus Antigen Panel Nasopharyngeal Swab (11/18/2012 10:07 AM EDT) Respiratory Virus Rapid ? Patient Name: ISRA CABALLERO ? Ordered By: FOREST CARPIO ? MR#: [id number] ?LOC: ??1EST ? /Sex: ??1950 (62 years), ? Female ? PROCEDURE: Respiratory Virus Rapid ?SOURCE: [employer] Swab ? COLLECTED: 11/18/2012 10:07 ? STARTED: 11/18/2012 11:21 ? STAINS / PREPARATIONS ? Rapid Virus Report ? Verified: 3 11:53 ? DFA Negative for Adenovirus Antigen ? DFA Negative for Human Metapneumovirus Antigen ? DFA Negative for Influenza Virus Type A Antigen ? DFA Negative for Influenza Virus Type B Antigen ? DFA Negative for Parainfluenza Virus Type 1 Antigen ? DFA Negative for Parainfluenza Virus Type 2 Antigen ? DFA Negative for Parainfluenza Virus Type 3 Antigen ? DFA Negative for Respiratory Syncytial Virus Antigen ? ___ ? [facility] Nasopharyngeal swab (specimen) 11/18/2012 10:07 AM EDT 11/18/2012 11:21 AM EDT Narrative Resulting Agency Comment Spec In Lab Forest Carpio MD MICROBIOLOGY - GEN ERAL ORDERABLES [facility] * Rapid Respiratory Virus Antigen Panel Sputum Induced (11/18/2012 8:24 AM EDT) Respiratory Virus Rapid ? Patient Name: ISRA CABALLERO ? Ordered By: FOREST CARPIO ? MR#: [id number] ?LOC: ??1EST ? /Sex: ??1950 (62 years), ? Female ? PROCEDURE: Respiratory Virus Rapid ?SOURCE: Sput Induced ? COLLECTED: 11/18/2012 08:24 ? STARTED: 11/18/2012 09:16 ? STAINS / PREPARATIONS ? Rapid Virus Report ? Verified:11/20/19 11:57 ? Unable to complete testing due to interfering substances ? Recommend repeat testing with nasopharyngeal flocked swab ? CERNER MILLENNIUM Sputum specimen obtained by sputum induction (specimen) 11/18/2012 8:24 AM EDT 11/18/2012 9:16 AM EDT Narrative Resulting Agency Comment Spec In Lab Forest Carpio MD MICROBIOLOGY - GEN ERAL ORDERABLES CERNER SVITLANAENNIUM * (ABNORMAL) Differential, Automated (11/18/2012 5:18 AM EDT) Neutrophil % 81.7(H) 34.0 - 71.0 % CERNER MILLENNIUM Neutrophil Absolute 13.13(H) 1.50 - 6.30 x10(3)/mc L CERNER MILLENNIUM Lymph % 7.7(L) 19.0 - 53.0 % CERNER MILLENNIUM Lymphocytes Abs 1.2 1.0 - 3.6 x10(3)/mc L CERNER MILLENNIUM Monocyte % 5.2 4.0 - 13.0 % CERNER MILLENNIUM Monocyte Abs 0.8 0.2 - 1.0 x10(3)/mc L CERNER MILLENNIUM Eos % 0.0 0.0 - 7.0 % CERNER MILLENNIUM Eosinophils Abs 0.0 0.0 - 0.5 x10(3)/mc L CERNER MILLENNIUM Basophil % 0.2 0.0 - 2.0 % CERNER MILLENNIUM Baso Absolute 0.0 0.0 - 0.2 x10(3)/mc L CERNER MILLENNIUM Immature Gran % 5.20(H) 0.00 - 0.66 % CERNER MILLENNIUM Comment: Immature granulocytes(IG's)percentage and absolute count will include metamyelocytes, myelocytes, and promyelocytes. Blood smears from CBCs yielding IG's will be scanned manually for concordance. If this scan disagrees with the automated IG or if promyelocytes are noted, a manual differential will be performed. Immature Gran Absolute 0.84(H) 0.00 - 0.05 x10(3)/mc L CERNER MILLENNIUM Blood specimen (specimen) 11/18/2012 5:18 AM EDT 11/18/2012 5:47 AM EDT Gulshan Rosa MD HEMATOLOGY ORDER IGOR Performing Organization Address City/[facility]/ZIP Co de Phone Number TEMITOPE SIEGELIUM * Scan, Peripheral Blood (11/18/2012 5:18 AM EDT) Pathologist [facility] Plat estimate Normal CERNER MILLENNIUM RBC Morphology Normal CERNE R MILLENNIUM Blood specimen (specimen) 11/18/2012 5:18 AM EDT 11/18/2012 5:47 AM EDT Narrative Resulting Agency Comment Spec In Lab Gulshan Rosa MD HEMATOLOGY ORDER IGOR TEMITOPE SIEGELIUM * (ABNORMAL) Basic Metabolic Panel (non-fasting) (11/18/2012 5:18 AM EDT) Glucose 203(H) 60 - 199 mg/dL CERNER MILLENNIUM Comment:Diabetes: >=200 mg/d L plus symptoms Blood Urea Nitrogen 15 8 - 18 mg/dL CERNER MILLENNIUM Creatinine 0.58(L) 0.70 - 1.20 mg/dL CERNER MILLENNIUM Comment: Please note that the pediatric reference intervals supplied above were not validated [place] [facility] [place] Results from pediatric patients should be interpreted in conjunction to the patient's age, height and muscle mass. Sodium 135 135 - 145 mmol/L CERNER MILLENNIUM Potassium 4.0 3.5 - 5.0 mmol/L CERNER MILLENNIUM Comment: [...] - 31 mmol/L CERNER MILLENNIUM Anion Gap 9 5 - 15 mmol/L CERNER MILLENNIUM Anion Gap 9 5 - 15 mmol/L CERNER MILLENNIUM Calcium 8.4(L) 8.5 - 10.5 mg/dL CERNER MILLENNIUM Est [...] internet browser. http://www.nkdep.nih.gov/lab-evaluation.shtml http://www.kidney.org/professionals/ Blood specimen (specimen) 11/18/2012 5:18 AM EDT 11/18/2012 5:47 AM EDT Narrative Resulting Agency Comment Spec In Lab Gulshan Rosa MD CHEMISTRY ORDERA [facility] Organization Address City/State/ZIP Co de Phone Number [facility] [employer] * (ABNORMAL) CBC (with Diff) (11/18/2012 5:18 AM EDT) White Blood Cell 16.1(H) 4.0 - 10.0 x10(3)/mc L CERNER MILLENNIUM Red Blood Cell 3.60(L) 3.93 - 5.22 x10(6)/mc L CERNER MILLENNIUM Hemoglobin 10.7(L) 11.2 - 15.7 gm/dL CERNER MILLENNIUM Hematocrit 32.1(L) 34.0 - 45.0 % CERNER MILLENNIUM Mean Cell Volume 89.2 79.0 - 94.0 fL CERNER MILLENNIUM Mean Cell Hemoglobin 29.7 26.6 - 32.2 pg CERNER MILLENNIUM Mean Cell Hemoglobin Concentration 33.3 32.0 - 36.5 gm/dL CERNER MILLENNIUM Platelet 330 145 - 370 x10(3)/mc L CERNER MILLENNIUM RDW Standard Deviation 41.5 35.0 - 46.0 fL CERNER MILLENNIUM RDW coefficient of variation 12.8 10.9 - 14.4 % CERNER MILLENNIUM Mean Platelet Volume 8.4(L) 9.0 - 12.0 fL CERNER MILLENNIUM Blood specimen (specimen) 11/18/2012 5:18 AM EDT 11/18/2012 5:47 AM EDT Narrative Resulting Agency Comment Spec In Lab Gulshan Rosa MD HEMATOLOGY ORDER IGOR [facility] * Rapid Respiratory Virus Antigen Panel Nasopharyngeal Swab (11/17/2012 10:19 AM EDT) Pathologist [facility] Respiratory Virus Rapid ? Patient Name: ISRA CABALLERO ? Ordered By: GULSHAN ROSA ? MR#: [id number] ?LOC: ??1EST ? /Sex: ??1950 (62 years), ? Female ? PROCEDURE: Respiratory Virus Rapid ?SOURCE: [employer] Swab ? COLLECTED: 11/17/2012 10:19 ? STARTED: 11/17/2012 10:37 ? STAINS / PREPARATIONS ? Rapid Virus Report ? Verified:2012 11:06 ? Insufficient cell numbers present for definitive result. ? Submission of another specimen is suggested. ? [facility] Nasopharyngeal swab (specimen) 11/17/2012 10:19 AM EDT 11/17/2012 10:37 AM EDT Narrative Resulting Agency Comment Spec In Lab Gulshan Rosa MD MICROBIOLOGY - G ENERAL ORDERABLES [facility] * Legionella Urinary Antigen (11/17/2012 10:03 AM EDT) Legionella Urinary Antigen ? Patient Name: ISRA CABALLERO ? Ordered By: GULSHAN ROSA ? MR#: [id number] ?LOC: ??1EST ? /Sex: ??1950 (62 years), ? Female ? PROCEDURE: Legionella Urinary Antigen ?SOURCE: Urine ? COLLECTED: 11/17/2012 10:03 ? STARTED: 11/17/2012 10:15 ? FINAL REPORT ? Final Report ? Verified:2012 10:52 ? EIA Negative for Legionella pneumophila Serogroup 1 Antigen ? CERNER MILLENNIUM Urine specimen (specimen) 11/17/2012 10:03 AM EDT 11/17/2012 10:15 AM EDT Narrative Resulting Agency Comment Spec In Lab Gulshan Rosa MD MICROBIOLOGY - G ENERAL ORDERABLES CERNER MILLENNIUM * (ABNORMAL) Urinalysis with microscopic (11/17/2012 10:03 AM EDT) Glucose, Urine Dipstick 300(A) Negative mg/dL CERNER MILLENNIUM Protein, Urine Dipstick Trace(A) Neg mg/dL CERNER MILLENNIUM Bilirubin, Urine Dipstick Negative Negative mg/dL CERNER MILLENNIUM Urobilinogen, Urine Dipstick Normal mg/dL CERNER MILLENNIUM pH, Urn (dipstick) 7.0 5.0 - 8.0 CERNER MILLENNIUM Blood, Urine Dipstick Small(A) Neg CERNER MILLENNIUM Ketone, Urine Dipstick Negative mg/dL CERNER MILLENNIUM Nitrite, Urine Dipstick Negative CERNER MILLENNIUM Leukocytes, Urine Dipstick Negative mcL CERNER MILLENNIUM Appearance, Urine Dipstick Hazy(A) Clear CERNER MILLENNIUM Specific [place] Urine Automated 1.016 1.002 - 1.030 CERNER MILLENNIUM Color, Urine Dipstick Yellow Yellow CERNER MILLENNIUM RBC, Urine 42(H) 0 - 4 /HPF CERNER MILLENNIUM WBC, Urine Not Present 0 - 5 CERNER MILLENNIUM Bacteria, Urine Rare(A) None /HPF CERNER MILLENNIUM Hyaline Casts, Urine 1 0 - 2 /LPF CERNER MILLENNIUM Urine specimen (specimen) 11/17/2012 10:03 AM EDT 11/17/2012 10:12 AM EDT Narrative Resulting Agency Comment Spec In Lab Gulshan Rosa MD URINE ORDERABLES TEMITOPE SIEGELIUM * Place PICC Line: Contact Vascular Access Page [phone] (11/17/2012 9:06 AM EDT) Narrative Madison Baptiste RN - 11/17/2012 9:06 AM EDT Madison Baptiste RN ? 11/17/2012 ??9:06 AM PICC/Midline Insertion Procedure Note Indications: Access and Medication Administration This insertion was not to replace a malfunctioning catheter. This insertion was not due to a suspected line-associated infection. Location of Procedure: X-Ray Room 11 Risks and Benefits: The risks and benefits of this procedure were reviewed and informed consent was obtained obtained. Time Out: Prior to the start of the procedure, the patient's identity, intended procedure, site/side, correct patient positioning and presence of the site che was confirmed as applicable. The medical history and chart were reviewed to rule out potential contraindications to the planned procedure. Hand Hygiene: The laser printing operator did perform hand hygiene prior to line insertion. Catheter type: PICC Lot number: [id number] Procedure Technique: Skin was prepped with chlorhexidine. Skin preparation agent was completely dry at the time of first skin puncture. The following barrier precaution methods were used:large sterile drape, maske/eye shield, large sterile gown, sterile gloves and cap. 3 ml of 1% Lidocaine was used for skin wheal. Ultrasound was used for guidance. ??Radiographic contrast agent was not injected for vein identification. Procedure Details: Order received for catheter placement. A 5 Fr. triple lumen Bard Power catheter was placed into the left basilic vein over a 0.018 inch guidewire using modified seldinger technique and fluoroscopy. Arm circumference was 38 cm at 2 cm above the insertion site. Final catheter length (with trimming):44 cm Internal: 44 cm External: 0 cm Tip in SVC per DR. TURNER The line was not placed over a guidewire. Post Procedure: Diagnosis: SOB, HEMOPTYSIS Blood return noted on aspiration of line after placement confirmed. 5 mls of normal saline infused free flowing to gravity via PICC after insertion. Sterile dressing applied: Tegaderm and Biopatch. Findings: The patient did tolerate the procedure well. No Complications. Procedure Comments: PATIENT REQUESTED LEFT ARM SHE WILL BE ADMINISTERING HOME ANTIBIOTICS TO HERSELF. ?? MADISON BAPTISTE RN 11/17/2012 Procedure Note Madison Baptiste RN - 11/17/2012 8:20 AM EDT PICC/Midline Insertion Procedure Note Indications: Access and Medication Administration This insertion was not to replace a malfunctioning catheter. This insertion was not due to a suspected line-associated infection. Location of Procedure: X-Ray Room 11 Risks and Benefits: The risks and benefits of this procedure were reviewed and informedconsent was obtained obtained. Time Out: Prior to the start of the procedure, the patient's identity, intendedprocedure, site/side, correct patient positioning and presence of the sitemark was confirmed as applicable. The medical history and chart werereviewed to rule out potential contraindications to the planned procedure. Hand Hygiene: The laser printing operator did perform hand hygiene prior to line insertion. Catheter type: PICC Lot number: [id number] Procedure Technique: Skin was prepped with chlorhexidine. Skin preparation agent was completely dry at the time of first skinpuncture. The following barrier precaution methods were used:large sterile drape,maske/eye shield, large sterile gown, sterile gloves and cap. 3 ml of 1% Lidocaine was used for skin wheal. Ultrasound was used forguidance. Radiographic contrast agent was not injected for veinidentification. Procedure Details: Order received for catheter placement. A 5 Fr. triple lumen Bard Powercatheter was placed into the left basilic vein over a 0.018 inch guidewireusing modified seldinger technique and fluoroscopy. Arm circumference was38 cm at 2 cm above the insertion site. Final catheter length (with trimming):44 cm Internal: 44 cm External: 0 cm Tip in SVC per DR. JOHNNY The line was not placed over a guidewire. Post Procedure: Diagnosis: SOB, HEMOPTYSIS Blood return noted on aspiration of line after placement confirmed. 5 mlsof normal saline infused free flowing to gravity via PICC after insertion.Sterile dressing applied: Tegaderm and Biopatch. Findings: The patient did tolerate the procedure well. No Complications. Procedure Comments: PATIENT REQUESTED LEFT ARM SHE WILL BE ADMINISTERING HOME ANTIBIOTICSTO HERSELF. MADISON BAPTISTE RN 11/17/2012 Gulshan Rosa MD PROCEDURE/MINOR SURGICAL ORDERABLES * (ABNORMAL) Differential, Automated (11/17/2012 4:36 AM EDT) Neutrophil % 83.2(H) 34.0 - 71.0 % CERNER MILLENNIUM Neutrophil Absolute 13.35(H) 1.50 - 6.30 x10(3)/mc L CERNER MILLENNIUM Lymph % 7.2(L) 19.0 - 53.0 % CERNER MILLENNIUM Lymphocytes Abs 1.2 1.0 - 3.6 x10(3)/mc L CERNER MILLENNIUM Monocyte % 4.9 4.0 - 13.0 % CERNER MILLENNIUM Monocyte Abs 0.8 0.2 - 1.0 x10(3)/mc L CERNER MILLENNIUM Eos % 0.0 0.0 - 7.0 % CERNER MILLENNIUM Eosinophils Abs 0.0 0.0 - 0.5 x10(3)/mc L CERNER MILLENNIUM Basophil % 0.1 0.0 - 2.0 % CERNER MILLENNIUM Baso Absolute 0.0 0.0 - 0.2 x10(3)/mc L CERNER MILLENNIUM Immature Gran % 4.60(H) 0.00 - 0.66 % CERNER MILLENNIUM Comment: Immature granulocytes(IG's)percentage and absolute count will include metamyelocytes, myelocytes, and promyelocytes. Blood smears from CBCs yielding IG's will be scanned manually for concordance. If this scan disagrees with the automated IG or if promyelocytes are noted, a manual differential will be performed. Immature Gran Absolute 0.74(H) 0.00 - 0.05 x10(3)/mc L CERNER MILLENNIUM Blood specimen (specimen) 11/17/2012 4:36 AM EDT 11/17/2012 5:02 AM EDT Gulshan Rosa MD HEMATOLOGY ORDER IGOR CERNER MILLENNIUM * (ABNORMAL) Basic Metabolic Panel (non-fasting) (11/17/2012 4:36 AM EDT) Glucose 198 60 - 199 mg/dL CERNER MILLENNIUM Comment:Diabetes: >=200 mg/d L plus symptoms Blood Urea Nitrogen 15 8 - 18 mg/dL CERNER MILLENNIUM Creatinine 0.63(L) 0.70 - 1.20 mg/dL CERNER MILLENNIUM Comment: Please note that the pediatric reference intervals supplied above were not validated [place] [facility] Results from pediatric patients should be interpreted in conjunction to the patient's age, height and muscle mass. Sodium 134(L) 135 - 145 mmol/L CERNER MILLENNIUM Potassium 4.2 3.5 - 5.0 mmol/L CERNER MILLENNIUM Comment: Please note: ??Patients with WBC >100,000 may have falsely elevated Potassium levels. ??For accurate Potassium quantification in these patients send serum separator tube (gold top) for subsequent determinations. ??Contact the Clinical Chemistry Laboratory if there are any questions. Chloride 99 98 - 107 mmol/L CERNER MILLENNIUM Carbon Dioxide 25 22 - 31 mmol/L CERNER MILLENNIUM Anion Gap 10 5 - 15 mmol/L CERNER MILLENNIUM Calcium 8.7 8.5 - 10.5 mg/dL CERNER MILLENNIUM Est [...] internet browser. http://www.nkdep.nih.gov/lab-evaluation.shtml http://www.kidney.org/professionals/ Blood specimen (specimen) 11/17/2012 4:36 AM EDT 11/17/2012 5:01 AM EDT Narrative Resulting Agency Comment Spec In Lab Gulshan Rosa MD CHEMISTRY ORDERA BLES Performing Organization Address City/[facility]/ZIP Co de Phone Number CERNER MILLENNIUM * (ABNORMAL) CBC (with Diff) (11/17/2012 4:36 AM EDT) White Blood Cell 16.0(H) 4.0 - 10.0 x10(3)/mc L CERNER MILLENNIUM Red Blood Cell 3.52(L) 3.93 - 5.22 x10(6)/mc L CERNER MILLENNIUM Hemoglobin 10.4(L) 11.2 - 15.7 gm/dL CERNER MILLENNIUM Hematocrit 31.5(L) 34.0 - 45.0 % CERNER MILLENNIUM Mean Cell Volume 89.5 79.0 - 94.0 fL CERNER MILLENNIUM Mean Cell Hemoglobin 29.5 26.6 - 32.2 pg CERNER MILLENNIUM Mean Cell Hemoglobin Concentration 33.0 32.0 - 36.5 gm/dL CERNER MILLENNIUM Platelet 318 145 - 370 x10(3)/mc L CERNER MILLENNIUM RDW Standard Deviation 41.5 35.0 - 46.0 fL CERNER MILLENNIUM RDW coefficient of variation 12.8 10.9 - 14.4 % CERNER MILLENNIUM Mean Platelet Volume 8.3(L) 9.0 - 12.0 fL CERNER MILLENNIUM Blood specimen (specimen) 11/17/2012 4:36 AM EDT 11/17/2012 5:02 AM EDT Narrative Resulting Agency Comment Spec In Lab Gulshan Rosa MD HEMATOLOGY ORDER IGOR CERNER MILLENNIUM * (ABNORMAL) Hepatic Function Panel (11/17/2012 4:36 AM EDT) Protein, Total 6.0(L) 6.4 - 8.3 gm/dL CERNER MILLENNIUM Albumin 3.7 3.2 - 5.2 gm/dL CERNER MILLENNIUM Aspartate Aminotransferase 15 0 - 30 unit/L CERNER MILLENNIUM Alanine Aminotransferase 25 0 - 30 unit/L CERNER MILLENNIUM Alkaline Phosphatase 66 40 - 104 unit/L CERNER MILLENNIUM Bilirubin, Total 0.5 0.2 - 1.3 mg/dL CERNER MILLENNIUM Bilirubin, Direct 0.1 0.0 - 0.3 mg/dL CERNER MILLENNIUM Blood specimen (specimen) 11/17/2012 4:36 AM EDT 11/17/2012 5:01 AM EDT Narrative Resulting Agency Comment Spec In Lab Gulshan Rosa MD CHEMISTRY ORDERA BLES Performing Organization Address [facility] Co de Phone Number [facility] * ANGIE (11/16/2012 12:56 PM EDT) ANGIE Neg Neg [facility] Blood specimen (specimen) 11/16/2012 12:56 PM EDT 11/16/2012 2:08 PM EDT Narrative Resulting Agency Comment Spec In Lab Gulshan Rosa MD LAB SEND OUT ORD ERABLES Performing Organization Address [facility] Co de Phone Number [facility] * Glomerular Basement Membrane Antibody IgG (11/16/2012 12:56 PM EDT) Gbm Ab May <0.2 <1.0 (Negative) [facility] Comment: Test Performed by: [facility] [address] [address] Binder Operator: Mervat Mullins, Ph.D. Blood specimen (specimen) 11/16/2012 12:56 PM EDT 11/16/2012 1:54 PM EDT Narrative Resulting Agency Comment Spec In Lab Gulshan Rosa MD LAB SEND OUT ORD ERABLES Performing Organization Address City/[facility]/ZIP Co de Phone Number [facility] * Lower Respiratory Culture Sputum Induced (11/16/2012 8:37 AM EDT) Lower Respiratory Culture ? Patient Name: ISRA CABALLERO ? Ordered By: GULSHAN ROSA ? MR#: [id number] ?LOC: ??1EST ? /Sex: ??1950 (62 years), ? Female ? PROCEDURE: Lower Respiratory Culture ?SOURCE: Sput Induced ? COLLECTED: 11/16/2012 08:37 ? STARTED: 11/16/2012 09:32 ? STAINS / PREPARATIONS ? Gram Stain Report ? Verified:2012 10:24 ? Moderate White Blood Cells seen ? Few squamous epithelial cells seen ? Few mixed bacterial morphotypes suggestive of normal upper respiratory ? micah ? FINAL REPORT ? Final Report ? Verified:2012 08:50 ? Few mixed bacterial morphotypes suggestive of normal upper respiratory ? micah ? PRELIMINARY REPORT ? Preliminary Report ? Verified:2012 07:51 ? Few mixed bacterial morphotypes suggestive of normal upper respiratory ? micah ? [facility] Sputum specimen obtained by sputum induction (specimen) 11/16/2012 8:37 AM EDT 11/16/2012 9:32 AM EDT Narrative Resulting Agency Comment Spec In Lab Gulshan Rosa MD MICROBIOLOGY - G ENERAL ORDERABLES Performing Organization Address [facility] de Phone Number TEMITOPE GAUTAM * Urine culture Clean Catch Urine (11/16/2012 8:21 AM EDT) Urine Culture ? Patient Name: ISRA CABALLERO ? Ordered By: GULSHAN ROSA ? MR#: [id number] ?LOC: ??1EST ? /Sex: ??1950 (62 years), ? Female ? PROCEDURE: Urine Culture ?SOURCE: [facility] ? COLLECTED: 11/16/2012 08:21 ? STARTED: 11/16/2012 09:01 ? FINAL REPORT ? Final Report ? Verified:06/2012 08:02 ? No growth (Less than 1,000 cfu/ml). ? ___ ? ___ TEMITOPE GAUTAM Urine specimen obtained via indwelling urinary catheter (specimen) 11/16/2012 8:21 AM EDT 11/16/2012 9:01 AM EDT Narrative Resulting Agency Comment Spec In Lab Gulshan Rosa MD MICROBIOLOGY - G ENERAL ORDERABLES Performing Organization Address [facility]/ZIP Co de Phone Number CERCHAPINCITO MILLENNIUM * Urine Hold (11/16/2012 7:56 AM EDT) Hold, Urine Sample in lab. CERNER MILLENNIUM Urine specimen (specimen) 11/16/2012 7:56 AM EDT 11/16/2012 8:02 AM EDT Gulshan Rosa MD URINE ORDERABLES Performing Organization Address [facility] de Phone Number TEMITOPE SHANEENNIUM * (ABNORMAL) Urinalysis with microscopic (11/16/2012 7:56 AM EDT) Glucose, Urine Dipstick Negative Negative mg/dL CERNER MILLENNIUM Protein, Urine Dipstick 30(A) Neg mg/dL CERNER MILLENNIUM Bilirubin, Urine Dipstick Negative Negative mg/dL CERNER MILLENNIUM Urobilinogen, Urine Dipstick Normal mg/dL CERNER MILLENNIUM pH, Urn (dipstick) 8.0 5.0 - 8.0 CERNER MILLENNIUM Blood, Urine Dipstick Moderate mg/dL CERNER MILLENNIUM Ketone, Urine Dipstick Negative mg/dL CERNER MILLENNIUM Nitrite, Urine Dipstick Negative CERNER MILLENNIUM Leukocytes, Urine Dipstick Negative mcL CERNER MILLENNIUM Appearance, Urine Dipstick Hazy(A) Clear CERNER MILLENNIUM Specific [place] Urine Automated 1.017 1.002 - 1.030 CERNER MILLENNIUM Color, Urine Dipstick Yellow Yellow CERNER MILLENNIUM RBC, Urine >182(H) 0 - 4 /HPF CERNER MILLENNIUM WBC, Urine 2 0 - 5 /HPF CERNER MILLENNIUM Bacteria, Urine Many /HPF CERNER MILLENNIUM Urine specimen (specimen) 11/16/2012 7:56 AM EDT 11/16/2012 8:02 AM EDT Narrative Resulting Agency Comment Spec In Lab Gulshan Rosa MD URINE ORDERABLES Performing Organization Address [facility] de Phone Number [facility] SV[facility]LA[facility]ANICEIUM * (ABNORMAL) Differential, Manual (11/16/2012 2:22 AM EDT) Segmented Neutrophils Manual 85(H) 34 - 71 % CERNER MILLENNIUM Band % 1 0 - 12 % CERNER MILLENNIUM Lymphocyte Manual 11(L) 19 - 53 % CE RNER MILLENNIUM Monocyte Manual 2(L) 4 - 13 % CERN ER MILLENNIUM Metamyelocyte Manual 1(H) 0 - 0 % CERNER MILLENNIUM Segs Absolute Manual 9.0(H) 1.5 - 6.3 x10(3)/mc L CERNER MILLENNIUM Band Abs 0.1(L) 0.2 - 0.6 x10(3)/mc L CERNER MILLENNIUM ANC 9.07(H) 1.50 - 6.30 x10(3)/mc L CERNER MILLENNIUM Lymph Absolute Manual 1.2 1.0 - 3.6 x10(3)/mc L CERNER MILLENNIUM Monocyte Absolute Manual 0.2 0.2 - 1.0 x10(3)/mc L CERNER MILLENNIUM [place] Absolute Manual 0.1(H) 0.0 - 0.0 x10(3)/mc L CERNER MILLENNIUM Total Cells Ct 100 CERNE R MILLENNIUM Plat estimate Normal CERNER MILLENNIUM RBC Morphology Normal CERNE R MILLENNIUM Blood specimen (specimen) 11/16/2012 2:22 AM EDT 11/16/2012 2:26 AM EDT Narrative Resulting Agency Comment Spec In Lab Gulshan Rosa MD HEMATOLOGY ORDER IGOR CERNER MILLENNIUM * (ABNORMAL) Basic Metabolic Panel (non-fasting) (11/16/2012 2:22 AM EDT) Pathologist [facility] Glucose 202(H) 60 - 199 mg/dL CERNER MILLENNIUM Comment:Diabetes: >=200 mg/d L plus symptoms Blood Urea Nitrogen 14 8 - 18 mg/dL CERNER MILLENNIUM Creatinine 0.64(L) 0.70 - 1.20 mg/dL CERNER MILLENNIUM Comment: Please note that the pediatric reference intervals supplied above were not validated [place] [facility] [place] Results from pediatric patients should be interpreted in conjunction to the patient's age, height and muscle mass. Sodium 136 135 - 145 mmol/L CERNER MILLENNIUM Potassium 4.3 3.5 - 5.0 mmol/L CERNER MILLENNIUM Comment: Please note: ??Patients with WBC >100,000 may have falsely elevated Potassium levels. ??For accurate Potassium quantification in these patients send serum separator tube (gold top) for subsequent determinations. ??Contact the Clinical Chemistry Laboratory if there are any questions. Chloride 100 98 - 107 mmol/L CERNER MILLENNIUM Carbon Dioxide 25 22 - 31 mmol/L CERNER MILLENNIUM Anion Gap 11 5 - 15 mmol/L CERNER MILLENNIUM Calcium 9.0 8.5 - 10.5 mg/dL CERNER MILLENNIUM Est [...] internet browser. http://www.nkdep.nih.gov/lab-evaluation.shtml http://www.kidney.org/professionals/ Blood specimen (specimen) 11/16/2012 2:22 AM EDT 11/16/2012 2:26 AM EDT Narrative Resulting Agency Comment Spec In Lab Gulshan Rosa MD CHEMISTRY ORDERA [facility] CERNER MILLENNIUM * (ABNORMAL) CBC (with Diff) (11/16/2012 2:22 AM EDT) White Blood Cell 10.6(H) 4.0 - 10.0 x10(3)/mc L CERNER MILLENNIUM Red Blood Cell 3.69(L) 3.93 - 5.22 x10(6)/mc L CERNER MILLENNIUM Hemoglobin 10.9(L) 11.2 - 15.7 gm/dL CERNER MILLENNIUM Hematocrit 32.9(L) 34.0 - 45.0 % CERNER MILLENNIUM Mean Cell Volume 89.2 79.0 - 94.0 fL CERNER MILLENNIUM Mean Cell Hemoglobin 29.5 26.6 - 32.2 pg CERNER MILLENNIUM Mean Cell Hemoglobin Concentration 33.1 32.0 - 36.5 gm/dL CERNER MILLENNIUM Platelet 314 145 - 370 x10(3)/mc L CERNER MILLENNIUM RDW Standard Deviation 41.6 35.0 - 46.0 fL CERNER MILLENNIUM RDW coefficient of variation 12.9 10.9 - 14.4 % CERNER MILLENNIUM Mean Platelet Volume 8.3(L) 9.0 - 12.0 fL CERNER MILLENNIUM Blood specimen (specimen) 11/16/2012 2:22 AM EDT 11/16/2012 2:26 AM EDT Narrative Resulting Agency Comment Spec In Lab Gulshan Rosa MD HEMATOLOGY ORDER IGOR CERNER MILLENNIUM * (ABNORMAL) Differential, Manual (11/15/2012 8:12 PM EDT) Segmented Neutrophils Manual 79(H) 34 - 71 % CERNER MILLENNIUM Band % 4 0 - 12 % CERNER MILLENNIUM Lymphocyte Manual 7(L) 19 - 53 % CE RNER MILLENNIUM Monocyte Manual 4 4 - 13 % CERN ER MILLENNIUM Metamyelocyte Manual 5(H) 0 - 0 % CERNER MILLENNIUM Myelocyte Manual 1(H) 0 - 0 % CER NER MILLENNIUM Segs Absolute Manual 10.1(H) 1.5 - 6.3 x10(3)/mc L CERNER MILLENNIUM Band Abs 0.5 0.2 - 0.6 x10(3)/mc L CERNER MILLENNIUM ANC 10.60(H) 1.50 - 6.30 x10(3)/mc L CERNER MILLENNIUM Lymph Absolute Manual 0.9(L) 1.0 - 3.6 x10(3)/mc L CERNER MILLENNIUM Monocyte Absolute Manual 0.5 0.2 - 1.0 x10(3)/mc L CERNER MILLENNIUM [place] Absolute Manual 0.6(H) 0.0 - 0.0 x10(3)/mc L CERNER MILLENNIUM My[place] Absolute Manual 0.1(H) 0.0 - 0.0 x10(3)/mc L CERNER MILLENNIUM Total Cells Ct 100 CERNE R MILLENNIUM Plat estimate Normal CERNER MILLENNIUM RBC Morphology Normal CERNE R MILLENNIUM Blood specimen (specimen) 11/15/2012 8:12 PM EDT 11/15/2012 8:16 PM EDT Narrative Resulting Agency Comment Spec In Lab Gulshan Rosa MD HEMATOLOGY ORDER IGOR Performing Organization Address City/[facility] Co de Phone Number CERNER MILLENNIUM * (ABNORMAL) Sedimentation rate (11/15/2012 8:12 PM EDT) Sedimentation Rate Automated 40(H) 0 - 20 mm/hr CERNER MILLENNIUM Blood specimen (specimen) 11/15/2012 8:12 PM EDT 11/15/2012 8:16 PM EDT Narrative Resulting Agency Comment Spec In Lab Gulshan Rosa MD HEMATOLOGY ORDER IGOR Performing Organization Address [facility] de Phone Number CERNER SVITLANAENNIUM * High Sensitivity CRP (11/15/2012 8:12 PM EDT) C-Reactive Protein High Sensitivity 68.6 mg/L CERNER MILLENNIUM Comment: result rechecked, blr Interpretations: 1) For accurate cardiac risk assessment, the average of 2 values >2 weeks apart should be obtained (ref 1&2). A value >10 mg/L indicates an inflammatory condition, concentrations >10 mg/L should not be used for cardiac risk assessment. ?<1.0 mg/L: low risk ?1.0 - 3.0 mg/L: moderate risk ?>3.0 mg/L: high risk groups for future cardiovascular events 2) The general reference range of apparently healthy individuals using this test is <5.0 mg/L (derived from the test package insert) References: 1. Jim NAVA et. al. ??AHA/CDC Scientific Statement: Markers of Inflammation and Cardiovascular Disease. ??Circulation 2003; 107:499-511 2. Donn PM. ??Clinical applications of C-reactive protein for cardiovascular disease detection and prevention. ??Circulation 2003; 107:363-369 Blood specimen (specimen) 11/15/2012 8:12 PM EDT 11/15/2012 8:17 PM EDT Narrative Resulting Agency Comment Spec In Lab Gulshan Rosa MD CHEMISTRY ORDERA BLES CERNER VoddlerENNIUM * (ABNORMAL) Basic Metabolic Panel (non-fasting) (11/15/2012 8:12 PM EDT) Glucose 180 60 - 199 mg/dL CERNER MILLENNIUM Comment:Diabetes: >=200 mg/d L plus symptoms Blood Urea Nitrogen 12 8 - 18 mg/dL CERNER MILLENNIUM Creatinine 0.70 0.70 - 1.20 mg/dL CERNER MILLENNIUM Comment: Please note that the pediatric reference intervals supplied above were not validated [place] [facility] [place] Results from pediatric patients should be interpreted in conjunction to the patient's age, height and muscle mass. Sodium 129(L) 135 - 145 mmol/L CERNER MILLENNIUM Potassium 4.4 3.5 - 5.0 mmol/L CERNER MILLENNIUM Comment: Please note: ??Patients with WBC >100,000 may have falsely elevated Potassium levels. ??For accurate Potassium quantification in these patients send serum separator tube (gold top) for subsequent determinations. ??Contact the Clinical Chemistry Laboratory if there are any questions. Chloride 93(L) 98 - 107 mmol/L CERNER MILLENNIUM Carbon Dioxide 23 22 - 31 mmol/L CERNER MILLENNIUM Anion Gap 13 5 - 15 mmol/L CERNER MILLENNIUM Calcium 9.0 8.5 - 10.5 mg/dL CERNER MILLENNIUM Est [...] internet browser. http://www.nkdep.nih.gov/lab-evaluation.shtml http://www.kidney.org/professionals/ Blood specimen (specimen) 11/15/2012 8:12 PM EDT 11/15/2012 8:17 PM EDT Narrative Resulting Agency Comment Spec In Lab Gulshan Rosa MD CHEMISTRY ORDERA BLES TEMITOPE SIEGELIUM * (ABNORMAL) CBC (with Diff) (11/15/2012 8:12 PM EDT) White Blood Cell 12.8(H) 4.0 - 10.0 x10(3)/mc L CERNER MILLENNIUM Red Blood Cell 3.51(L) 3.93 - 5.22 x10(6)/mc L CERNER MILLENNIUM Hemoglobin 10.5(L) 11.2 - 15.7 gm/dL CERNER MILLENNIUM Hematocrit 31.1(L) 34.0 - 45.0 % CERNER MILLENNIUM Mean Cell Volume 88.6 79.0 - 94.0 fL CERNER MILLENNIUM Mean Cell Hemoglobin 29.9 26.6 - 32.2 pg CERNER MILLENNIUM Mean Cell Hemoglobin Concentration 33.8 32.0 - 36.5 gm/dL CERNER MILLENNIUM Platelet 291 145 - 370 x10(3)/mc L CERNER MILLENNIUM RDW Standard Deviation 41.6 35.0 - 46.0 fL CERNER MILLENNIUM RDW coefficient of variation 12.9 10.9 - 14.4 % CERNER MILLENNIUM Mean Platelet Volume 8.3(L) 9.0 - 12.0 fL CERNER MILLENNIUM Blood specimen (specimen) 11/15/2012 8:12 PM EDT 11/15/2012 8:16 PM EDT Narrative Resulting Agency Comment Spec In Lab Gulshan Rosa MD HEMATOLOGY ORDER IGOR Performing Organization Address City/[facility]/ZIP Co de Phone Number CERCHAPINCITO SHANEENNIUM * Proteinase-3 Antibody (11/15/2012 8:12 PM EDT) Proteinase 3 Antibody 2.0 <=20.0 unit(s) CERNER MILLENNIUM Blood specimen (specimen) 11/15/2012 8:12 PM EDT 11/16/2012 8:31 AM EDT Narrative Resulting Agency Comment Spec In Lab Gulshan Rosa MD IMMUNOLOGY ORDER IGOR Performing Organization Address City/[facility] Co de Phone Number CERNER SVITLANAENNIUM * Myeloperoxidase Ab (11/15/2012 8:12 PM EDT) Myeloperoxidase Antibody 3.5 <=20.0 unit(s) CERNER MILLENNIUM Blood specimen (specimen) 11/15/2012 8:12 PM EDT 11/16/2012 8:31 AM EDT Narrative Resulting Agency Comment Spec In Lab Gulshan Rosa MD IMMUNOLOGY ORDER IGOR Performing Organization Address [facility] de Phone Number CERNER SVITLANAENNIUM * Cytoplasmic Neutrophilic Ab (11/15/2012 8:12 PM EDT) C-Anca (MAY) Negative Negative CERNER MILLENNIUM Comment: Test Performed by: [place] [address] Binder Operator: Bryant Marinelli III, M.D. P-Anca (MAY) Negative Negative CERNER MILLENNIUM Comment: Negative for cANCA and pANCA patterns by immunofluorescence. Test Performed by: [place] [address] Binder Operator: Bryant Marinelli III, M.D. Blood specimen (specimen) 11/15/2012 8:12 PM EDT 11/16/2012 8:39 AM EDT Narrative Resulting Agency Comment Spec In Lab Gulshan Rosa MD LAB SEND OUT ORD ERABLES Performing Organization Address [facility] de Phone Number TEMITOPE GAUTAM * Blood culture (11/15/2012 8:12 PM EDT) Blood Culture ? Patient Name: ISRA CABALLERO ? Ordered By: GULSHAN ROSA ? MR#: [id number] ?LOC: ??1EST ? /Sex: ??1950 (62 years), ? Female ? PROCEDURE: Blood Culture ?SOURCE: Blood ? COLLECTED: 11/15/2012 20:12 ?FREE TEXT SOURCE: L ac ? STARTED: 11/15/2012 20:49 ? FINAL REPORT ? Final Report ? Verified:2012 15:10 ? No growth at 5 days. ? PRELIMINARY REPORT ? Preliminary Report ? Verified:2012 23:11 ? No growth at 4 days. ? TEMITOPE SIEGELIUM Blood specimen (specimen) 11/15/2012 8:12 PM EDT 11/15/2012 8:49 PM EDT Narrative Resulting Agency Comment Spec In Lab Gulshan Rosa MD MICROBIOLOGY - B LOOD ORDERABLES Performing Organization Address [facility]/State/ZIP Co de Phone Number TEMITOPE SHANEENNIUM * Blood culture (11/15/2012 8:12 PM EDT) Blood Culture ? Patient Name: ISRA CABALLERO ? Ordered By: GULSHAN ROSA ? MR#: [id number] ?LOC: ??1EST ? /Sex: ??1950 (62 years), ? Female ? PROCEDURE: Blood Culture ?SOURCE: Blood Pedi ? COLLECTED: 11/15/2012 20:12 ?FREE TEXT SOURCE: R ac ? STARTED: 11/15/2012 20:49 ? FINAL REPORT ? Final Report ? Verified:2012 15:10 ? No growth at 5 days. ? PRELIMINARY REPORT ? Preliminary Report ? Verified:2012 23:11 ? No growth at 4 days. ? CERNER MILLENNIUM Blood specimen (specimen) 11/15/2012 8:12 PM EDT 11/15/2012 8:49 PM EDT Narrative Resulting Agency Comment Spec In Lab Gulshan Rosa MD MICROBIOLOGY - B LOOD ORDERABLES TEMITOPE SHANEENNIUM * Phosphorus (11/15/2012 8:12 PM EDT) Phosphorus 3.5 2.5 - 4.5 mg/dL CERNER MILLENNIUM Blood specimen (specimen) 11/15/2012 8:12 PM EDT 11/15/2012 8:17 PM EDT Narrative Resulting Agency Comment Spec In Lab Gulshan Rosa MD CHEMISTRY ORDERA BLETrupti Performing Organization Address [facility] de Phone Number CERNER SVITLANAENNIUM * Magnesium (11/15/2012 8:12 PM EDT) Magnesium 0.91 0.69 - 1.07 mmol/L CERNER MILLENNIUM Blood specimen (specimen) 11/15/2012 8:12 PM EDT 11/15/2012 8:17 PM EDT Narrative Resulting Agency Comment Spec In Lab Gulshan Rosa MD CHEMISTRY ORDERA BLETrupti Performing Organization Address [facility] Phone Number CERNER MILLENNIUM * Hepatic Function Panel (11/15/2012 8:12 PM EDT) Protein, Total 6.6 6.4 - 8.3 gm/dL CERNER MILLENNIUM Albumin 3.8 3.2 - 5.2 gm/dL CERNER MILLENNIUM Aspartate Aminotransferase 21 0 - 30 unit/L CERNER MILLENNIUM Alanine Aminotransferase 28 0 - 30 unit/L CERNER MILLENNIUM Alkaline Phosphatase 77 40 - 104 unit/L CERNER MILLENNIUM Bilirubin, Total 0.5 0.2 - 1.3 mg/dL CERNER MILLENNIUM Bilirubin, Direct 0.1 0.0 - 0.3 mg/dL CERNER MILLENNIUM Blood specimen (specimen) 11/15/2012 8:12 PM EDT 11/15/2012 8:17 PM EDT Narrative Resulting Agency Comment Spec In Lab Gulshan Rosa MD CHEMISTRY ORDERA BLETrupti Performing Organization Address [facility] de Phone Number CERNER MILLENNIUM * Prothrombin Time (11/15/2012 8:12 PM EDT) Prothrombin Time 13.5 12.0 - 15.0 sec TEMITOPE GAUTAM Comment: [facility] Transfusion Committee Guidelines: INR less than 2.0, PTT less than OR equal to 43.5 seconds, or Fibrinogen greater than or equal to 100 mg/dl indicate adequate procoagulant activity for hemostasis in patients without underlying bleeding disorders. 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 CT Scan; Body Part (please add comments as necessary): Chest; I believe a reinterpretation of this exam may alter care of Patient. Yes Comparison CT chest 05/14/2010. Technique Helical acquired axial images through the chest performed at [facility] on 11/14/2012 submitted for reinterpretation on 11/15/2012. ??Axial coronal as well as sagittal reformatted images generated at are available for review. Findings As seen on prior, there is a background of extensive centrilobular emphysematous change with upper lobe predominance. ??Since the prior however, there has been interval development of irregular interstitial septal thickening throughout both lungs with upper lung zone predominance most pronounced in the periphery of the left upper lung and superior segment left lower lobe and accompanied by peripheral areas of developing honeycombing architectural distortion suggesting a component of fibrotic change. ??There is accompanying patchy ground-glass bilaterally, which is nonspecific and suggestive of inflammatory or possibly an infectious process or alternatively hemorrhage. ??No bronchiectasis is identified. ??There are numerous small subcentimeter mediastinal lymph nodes as well as a approximately 2.4 x 1.3 cm right hilar lymph node on axial image 40 of series 4, presumably reactive. ??No axillary lymphadenopathy. ??No pleural or pericardial effusions of the tectum. ??No thoracic aortic aneurysm. 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 Visualized upper abdominal viscera are grossly unremarkable save for a suspected small sliding-type hiatal hernia. ??Advanced multilevel disc degenerative changes in the thoracic spine most pronounced at T1-T2 and T7-T8 where there is suspected partial ankylosis. ??There is additional 5 mm anterolisthesis C7 on T1, presumably related to advanced facet arthropathy at that level. Impression ? 1. Underlying upper lobe predominant centrilobular emphysema with interval development of irregular interstitial septal thickening with upper lung zone predominance and developing peripheral honeycombing/fibrotic changes most pronounced in the left upper lobe superior segment left lower lobe. ? 2. Accompanying patchy ground-glass opacities throughout both lungs, as above. Differential considerations for ground-glass opacities would include hemorrhage is well as other inflammatory infectious alveolitis/process. 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 CT Scan; Body Part (please add comments as necessary): Chest;I believe a reinterpretation of this exam may alter care of Patient. Yes Comparison CT chest 05/14/2010. Technique Helical acquired axial images through the chest performed at [facility] on 11/14/2012 submitted for reinterpretation on 11/15/2012. Axial coronal aswell as sagittal reformatted images generated at are available for review. Findings As seen on prior, there is a background of extensive centrilobular emphysematous change with upper lobe predominance. Since the priorhowever, there has been interval development of irregular interstitial septalthickening throughout both lungs with upper lung zone predominance most pronounced inthe periphery of the left upper lung and superior segment left lower lobe and accompanied by peripheral areas of developing honeycombing architectural distortion suggesting a component of fibrotic change. There isaccompanying patchy ground-glass bilaterally, which is nonspecific and suggestive of inflammatory or possibly an infectious process or alternativelyhemorrhage. No bronchiectasis is identified. There are numerous small subcentimeter mediastinal lymph nodes as well as a approximately 2.4 x 1.3 cm righthilar lymph node on axial image 40 of series 4, presumably reactive. Noaxillary lymphadenopathy. No pleural or pericardial effusions of the tectum. No thoracic aortic aneurysm. 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 Visualized upper abdominal viscera are grossly unremarkable save for a suspected small sliding-type hiatal hernia. Advanced multilevel disc degenerative changes in the thoracic spine most pronounced at T1-T2 andT7-T8 where there is suspected partial ankylosis. There is additional 5 mm anterolisthesis C7 on T1, presumably related to advanced facet arthropathyat that level. Impression 1. Underlying upper lobe predominant centrilobular emphysema withinterval development of irregular interstitial septal thickening with upper lungzone predominance and developing peripheral honeycombing/fibrotic changes most pronounced in the left upper lobe superior segment left lower lobe. 2. Accompanying patchy ground-glass opacities throughout both lungs,as above. Differential considerations for ground-glass opacities wouldinclude hemorrhage is well as other inflammatory infectious alveolitis/process. Gulshan Rosa MD IMG OUTSIDE INTE RPRETATION ORDERABLES * EKG 12 Lead (11/15/2012 7:48 PM EDT) Ventricular rate 74 BPM MUSE SYSTEM Atrial Rate 74 BPM MUSE SYSTEM P-R Interval 148 ms MUSE SYSTEM QRS Duration 88 ms MUSE SYSTEM Q-T Interval 382 ms MUSE SYSTEM QTC Calculated (Bezet) 424 ms MUSE SYSTEM Calculated P [place] -20 degrees MUSE SYSTEM Calculated R [place] 0 degrees MUSE SYSTEM Calculated T [place] 2 degrees MUSE SYSTEM INTERPRETATION Normal sinus rhythm Normal ECG When compared with ECG of 11-MAR-2010 11:43, Vent. rate has decreased BY ??42 BPM Nonspecific T wave abnormality no longer evident in Anterior leads Confirmed by Savannah SAAVEDRA, Alexandru ([id number]) on 11/16/2012 5:42:01 PM MUSE SYSTEM 11/15/2012 7:48 PM EDT 11/16/2012 5:42 PM EDT Gulshan Rosa MD ECG ORDERABLES MUSE SYSTEM * POCT Glucose (11/15/2012 6:24 PM EDT) Glucose, POC 180 60 - 199 mg/dL [facility] Comment: Supplemental ranges: <110 mg/dL before meals <200 mg/dL all other times of the day Blood specimen (specimen) 11/15/2012 6:24 PM EDT 11/15/2012 6:24 PM EDT Gulshan Rosa MD POINT OF CARE TE ST ORDERABLES Performing Organization Address City/[facility] Co de Phone Number [facility] documented in this encounter Visit Diagnoses Diagnosis SOB (shortness of breath)- Primary Shortness of breath documented in this encounter Administered Medications Inactive Administered Medications - up to 3 most recent administrations Medication Order MAR Action Action Date Dose Rate Site acetaminophen (TYLENOL) tablet 650 mg 650 mg, Oral, EVERY 4 HOURS PRN, Starting on Mon11/16/12 at 0940, Until Mon11/20/12 at 1838, Pain, Maximum dose of acetaminophen is 4000 mg from all sources in 24 hours., Routine Given 11/20/2012 5:07 AM EDT 650 mg Given 11/19/2012 6:15 PM EDT 650 mg Given 11/19/2012 9:02 AM EDT 650 mg amitriptyline (ELAVIL) tablet 75 mg 75 mg, Oral, NIGHTLY, First dose on Mon11/15/12 at 2100, Until Discontinued, Routine Given 11/19/2012 9:00 PM EDT 75 mg Given 11/18/2012 8:18 PM EDT 75 mg Given 11/17/2012 8:15 PM EDT 75 mg amlodipine (NORVASC) tablet 10 mg 10 mg, Oral, DAILY, First dose on Mon11/16/12 at 0900, Until Discontinued, Routine Given 11/20/2012 8:58 AM EDT 10 mg Given 11/19/2012 9:04 AM EDT 10 mg Given 11/18/2012 8:01 AM EDT 10 mg azithromycin (ZITHROMAX) 500 mg in sodium chloride 0.9% 505 mL 500 mg, Intravenous, EVERY 24 HOURS, First dose on Mon11/16/12 at 1500, Until Discontinued, Administer over 3 Hours, Indication for (Active or Suspected): for Pneumonia (Community) Given 11/19/2012 3:35 PM EDT 500 mg 168.3 mL/ hr Given 11/18/2012 3:31 PM EDT 500 mg 168.3 mL/hr Given 11/17/2012 3:30 PM EDT 500 mg 168.3 mL/hr bisacodyl (DULCOLAX) suppository 10 mg 10 mg, Rectal, DAILY PRN, Starting on Mon11/18/12 at 0921, Until Mon11/20/12 at 1838, Constipation, Routine Given by Other 11/20/2012 11:20 AM EDT 10 mg Given 11/19/2012 9:02 AM EDT 10 mg Given 11/18/2012 10:01 AM EDT 10 mg busPIRone (BUSPAR) tablet 15 mg 15 mg, Oral, DAILY WITH BREAKFAST, First dose on Mon11/17/12 at 0800, Until Discontinued, Routine Given 11/20/2012 8:58 AM EDT 15 mg Given 11/19/2012 9:00 AM EDT 15 mg Given 11/18/2012 7:59 AM EDT 15 mg busPIRone (BUSPAR) tablet 30 mg 30 mg, Oral, DAILY WITH LUNCH, First dose on Mon11/16/12 at 1200, Until Discontinued, Routine Given 11/20/2012 12:44 PM EDT 30 mg Given 11/19/2012 11:36 AM EDT 30 mg Given 11/18/2012 11:13 AM EDT 30 mg calcium carbonate (TUMS) chewable tablet 500 mg 500 mg, Oral, 3 TIMES DAILY PRN, Starting on Mon11/18/12 at 1538, Until Mon11/20/12 at 1838, Heartburn, Routine Given 11/18/2012 4:37 PM EDT 500 mg cefTRIaxone (ROCEPHIN) 1g in dextrose 5% 50mL 1 g, Intravenous, EVERY 24 HOURS, First dose on Nay 11/15/12 at 2100, Until Discontinued, Administer over 30 Minutes, Indication for (Active or Suspected): for Pneumonia (Community) Given 11/15/2012 8:44 PM EDT 1 g 100 mL/hr cefTRIaxone (ROCEPHIN) 1g in dextrose 5% 50mL 1 g, Intravenous, EVERY 24 HOURS, First dose on Mon11/16/12 at 1430, Until Discontinued, Administer over 30 Minutes, Indication for (Active or Suspected): for Pneumonia (Community) Given 11/19/2012 2:30 PM EDT 1 g 100 mL/hr Given 11/18/2012 2:52 PM EDT 1 g 100 mL/hr Given 11/17/2012 2:59 PM EDT 1 g 100 mL/hr diclofenac (VOLTAREN) EC tablet 75 mg 75 mg, Oral, 2 TIMES DAILY, First dose on Mon11/16/12 at 2100, Until Discontinued, Routine Given 11/20/2012 4:06 PM EDT 75 mg Given 11/20/2012 5:06 AM EDT 75 mg Given 11/19/2012 4:00 PM EDT 75 mg diphenhydrAMINE (BENADRYL) capsule 25 mg 25 mg, Oral, EVERY 6 HOURS PRN, Starting on Mon11/18/12 at 1717, Until Mon11/20/12 at 1838, Itching, Routine Given 11/19/2012 8:02 PM EDT 25 mg Given 11/18/2012 5:27 PM EDT 25 mg esomeprazole (NEXIUM) capsule 40 mg 40 mg, Oral, DAILY, First dose on Mon11/18/12 at 1230, Until Discontinued, Routine Given 11/20/2012 8:58 AM EDT 40 mg Given 11/19/2012 9:04 AM EDT 40 mg Given 11/18/2012 12:46 PM EDT 40 mg hyaluronidase (ovine) (VITRASE) injection 1-10 mL 1-10 mL, Subcutaneous, ONCE, On Mon11/16/12 at 0700, 1 dose, Hyaluronidase is supplied in a 1-mL vial at a concentration of 200 units/mL. Dilute with 9 mL of normal saline. This yields the desired concentration of 20 units/mL. Draw up 1 mL increments of the diluted solution into a 1-mL syringe with a 26-g needle. Instill 0.2 -mL aliquots of the solution at least every 2 - 3 centimeters or five evenly spaced aliquots subcutaneously around the periphery of the infiltrated area. Use a new 26-gauge needle for each injection. This is best done within one hour of the extravasation. Discard the remaining solution. Given 11/16/2012 7:00 AM EDT 1 mL hydroCODone-acetaminophen (VICODIN) 5-500 mg per tablet 1 tablet 1 tablet, Oral, ONCE, 1 dose, On Mon11/16/12 at 1745, Maximum dose of acetaminophen is 4000 mg from all sources in 24 hours., Routine Given 11/16/2012 5:29 PM EDT 1 tablet hydroCODone-acetaminophen (VICODIN) 5-500 mg per tablet 1 tablet 1 tablet, Oral, ONCE, 1 dose, On Mon11/17/12 at 1015, Maximum dose of acetaminophen is 4000 mg from all sources in 24 hours., Routine Given 11/17/2012 11:25 AM EDT 1 tablet ibuprofen (ADVIL;MOTRIN) tablet 200 mg 200 mg, Oral, DAILY, First dose on Mon11/16/12 at 1100, Until Discontinued, Routine Given 11/16/2012 12:20 PM EDT 200 mg ipratropium-albuterol (DUONEB) 0.5 mg-3 mg(2.5 mg base)/3 mL nebulizer solution 3 mL 3 mL, Nebulization, EVERY 2 HOURS PRN, Starting on Mon11/15/12 at 2118, Until Mon11/20/12 at 1838, Wheezing, Routine Given 11/18/2012 9:40 PM EDT 3 mLs Given 11/17/2012 4:21 PM EDT 3 mLs Given 11/16/2012 11:15 PM EDT 3 mLs ipratropium-albuterol (DUONEB) 0.5 mg-3 mg(2.5 mg base)/3 mL nebulizer solution 3 mL 3 mL, Nebulization, EVERY 6 HOURS SCHEDULED, First dose (after last modification) on Mon11/15/12 at 2145, Until Discontinued, Routine Given 11/20/2012 12:50 PM EDT 3 mLs Given 11/20/2012 5:07 AM EDT 3 mLs Given 11/20/2012 1:00 AM EDT 3 mLs LORazepam (ATIVAN) tablet 0.5 mg 0.5 mg, Oral, EVERY 6 HOURS PRN, Starting on Mon11/16/12 at 1040, Until Mon11/20/12 at 1838, Anxiety, Routine Given 11/20/2012 12:48 PM EDT 0.5 mg Given 11/19/2012 11:42 AM EDT 0.5 mg Given 11/18/2012 12:49 PM EDT 0.5 mg methylPREDNISolone sodium succinate (PF) (SOLU-MEDROL) 40 mg/mL injection 40 mg 40 mg, Intravenous, 2 TIMES DAILY, First dose (after last modification) on Mon11/18/12 at 2000, Until Discontinued, Routine Given 11/19/2012 9:04 AM EDT 40 mg Given 11/18/2012 8:18 PM EDT 40 mg methylPREDNISolone sodium succinate (PF) (SOLU-MEDROL) 40 mg/mL injection 80 mg 80 mg, Intravenous, DAILY, First dose on Mon11/15/12 at 2015, Until Discontinued, Routine Given 11/15/2012 8:44 PM EDT 80 mg methylPREDNISolone sodium succinate (PF) (SOLU-MEDROL) 40 mg/mL injection 80 mg 80 mg, Intravenous, EVERY 8 HOURS SCHEDULED, First dose (after last modification) on Mon11/16/12 at 0445, Until Discontinued, Routine Given 11/18/2012 6:03 AM EDT 80 mg Given 11/17/2012 10:08 PM EDT 80 mg Given 11/17/2012 2:36 PM EDT 80 mg nystatin (MYCOSTATIN) 100,000 unit/mL oral suspension 500,000 Units 500,000 Units, Oral, 2 TIMES DAILY, First dose on Mon11/16/12 at 1015, Until Discontinued, Routine Given 11/18/2012 6:49 AM EDT 500,000 Units Given 11/17/2012 6:37 PM EDT 500,000 Units Given 11/17/2012 6:37 AM EDT 500,000 Units nystatin (MYCOSTATIN) 100,000 unit/mL oral suspension 500,000 Units 500,000 Units, Oral, 3 TIMES DAILY, First dose (after last modification) on Mon11/18/12 at 1500, Until Discontinued, Routine Given 11/20/2012 2:31 PM EDT 500,000 Units Given 11/20/2012 8:58 AM EDT 500,000 Units Given 11/19/2012 9:00 PM EDT 500,000 Units PARoxetine (PAXIL) tablet 40 mg 40 mg, Oral, DAILY, First dose on Mon11/16/12 at 0900, Until Discontinued, Routine Given 11/20/2012 8:58 AM EDT 40 mg Given 11/19/2012 9:04 AM EDT 40 mg Given 11/18/2012 8:01 AM EDT 40 mg piperacillin-tazobactam (ZOSYN) 3.375 g in dextrose 5% 50 mL 3.375 g, Intravenous, EVERY 8 HOURS, First dose on Mon11/15/12 at 2130, Until Discontinued, Administer over 4 Hours, Indication for (Active or Suspected): for Pneumonia ([facility]) Given 11/16/2012 1:30 PM EDT 3.375 g 12.5 mL /hr Given 11/16/2012 5:20 AM EDT 3.375 g 12.5 mL/hr Given 11/15/2012 9:38 PM EDT 3.375 g 12.5 mL/hr polyethylene glycol (MIRALAX) packet 17 g 17 g, Oral, DAILY, First dose on Mon11/16/12 at 1430, Until Discontinued, Routine Given 11/20/2012 8:58 AM EDT 17 g Given 11/19/2012 9:04 AM EDT 17 g Given 11/18/2012 8:02 AM EDT 17 g predniSONE (DELTASONE) tablet 40 mg 40 mg, Oral, 2 TIMES DAILY, First dose on Mon11/19/12 at 2100, Until Discontinued, Routine Given 11/20/2012 8:58 AM EDT 40 mg Given 11/19/2012 9:00 PM EDT 40 mg senna-docusate (PERICOLACE) 8.6-50 mg per tablet 1 tablet 1 tablet, Oral, 2 TIMES DAILY, First dose on Mon11/16/12 at 0900, Until Discontinued, Routine Given 11/20/2012 8:58 AM EDT 2 tablets Given 11/19/2012 9:00 PM EDT 1 tablet Given 11/19/2012 9:04 AM EDT 1 tablet simvastatin (ZOCOR) tablet 20 mg 20 mg, Oral, EVERY EVENING, First dose on Mon11/15/12 at 2000, Until Discontinued Given 11/20/2012 4:06 PM EDT 20 mg Given 11/19/2012 5:00 PM EDT 20 mg Given 11/18/2012 5:27 PM EDT 20 mg sodium chloride 0.9 % flush 5 mL 5 mL, Intravenous, EVERY 12 HOURS, First dose on Mon11/15/12 at 2000, Until Discontinued Given 11/20/2012 8:59 AM EDT 5 mLs Given 11/19/2012 8:00 PM EDT 5 mLs Given 11/19/2012 8:39 AM EDT 5 mLs vancomycin 1 g in dextrose 5% 200 mL 1,000 mg (1 g), Intravenous, EVERY 12 HOURS, First dose on Nay 11/15/12 at 2200, Until Discontinued, This medication may have an associated drug lab level. Please check for lab orders, Routine Given 11/16/2012 10:00 AM EDT 1,000 mg Given 11/15/2012 10:00 PM EDT 1,000 mg documented in this encounter Active and Recently Administered Medications Times are shown in EDT. Scheduled Medication Order 11/18/2012 11/19/2012 11/20/2012 amitriptyline (ELAVIL) tablet 75 mg (CANCELED) 75 mg, Oral, NIGHTLY, First dose on Nay 11/15/12 at 2100, Until Discontinued, Routine 2018 (Given - Provider: Tree Gotti RN) 2100 (Given - Provider: Tree Gotti RN) amlodipine (NORVASC) tablet 10 mg (CANCELED) 10 mg, Oral, DAILY, First dose on Mon11/16/12 at 0900, Until Discontinued, Routine 0801 (Given - Provider: Karina Hernandez RN) 0904 (Given - Provider: Shavonne Gil RN) 0858 (Given - Provider: Ashley Moses) azithromycin (ZITHROMAX) 500 mg in sodium chloride 0.9% 505 mL (CANCELED) 500 mg, Intravenous, EVERY 24 HOURS, First dose on Mon11/16/12 at 1500, Until Discontinued, Administer over 3 Hours, Indication for (Active or Suspected): for Pneumonia (Community) 1531 (Given - Provider: Karina Hernandez RN) 1535 (Given - Provider: Shavonne Gil, LINDSEY) 1500 (Not Given - Provider: Ashley Moses - Reason: Loss of access - Comment: PICC line d/c'd.) busPIRone (BUSPAR) tablet 15 mg 15 mg, Oral, DAILY WITH BREAKFAST, First dose on Mon11/17/12 at 0800, Until Discontinued, Routine 0759 (Given - Provider: Karina Hernandez RN) 0900 (Given - Provider: Shavonne Gil RN) 0858 (Given - Provider: Ashley Moses) busPIRone (BUSPAR) tablet 30 mg (CANCELED) 30 mg, Oral, DAILY WITH LUNCH, First dose on Mon11/16/12 at 1200, Until Discontinued, Routine 1113 (Given - Provider: Karina Hernandez RN) 1136 (Given - Provider: Shavonne Gil, LINDSEY) 1244 (Given - Provider: Ashley Moses) cefTRIaxone (ROCEPHIN) 1g in dextrose 5% 50mL (CANCELED) 1 g, Intravenous, EVERY 24 HOURS, First dose on Mon11/16/12 at 1430, Until Discontinued, Administer over 30 Minutes, Indication for (Active or Suspected): for Pneumonia (Community) 1452 (Given - Provider: Karina Hernandez RN) 1430 (Given - Provider: Shavonne Gil RN) 1430 (Not Given - Provider: Ashley Moses - Reason: Loss of access - Comment: PICC line d/c'd.) diclofenac (VOLTAREN) EC tablet 75 mg (CANCELED) 75 mg, Oral, 2 TIMES DAILY, First dose on Mon11/16/12 at 2100, Until Discontinued, Routine 0801 (Given - Provider: Karina Hernandez RN)1727 (Given - Provider: Karina Hernandez RN) 0636 (Given - Provider: Tree Gotti, RN)1600 (Given - Provider: Sahvonne Gil, LINDSEY) 0506 (Given - Provider: Tree Gotti, RN)1606 (Given - Provider: Ashley Moses) esomeprazole (NEXIUM) capsule 40 mg (CANCELED) 40 mg, Oral, DAILY, First dose on Mon11/18/12 at 1230, Until Discontinued, Routine 1246 (Given - Provider: Karina Hernandez RN) 0904 (Given - Provider: Shavonne Gil, LINDSEY) 0858 (Given - Provider: Ashley Moses) ipratropium-albuterol (DUONEB) 0.5 mg-3 mg(2.5 mg base)/3 mL nebulizer solution 3 mL (CANCELED) 3 mL, Nebulization, EVERY 6 HOURS SCHEDULED, First dose (after last modification) on [place] 11/15/12 at 2145, Until Discontinued, Routine 0010 (Given - Provider: Tree Gotti RN)0603 (Given - Provider: Tree Gotti RN)1113 (Given - Provider: Karina Hernandez RN)1727 (Given - Provider: Karina Hernandez RN) 0000 (Not Given - Provider: Tree Gotti RN - Reason: Patient/family refused)0636 (Given - Provider: Tree Gotti RN)1136 (Given - Provider: Shavonne Gil, LINDSEY)1800 (Given - Provider: Shavonne iGl, LINDSEY) 0100 (Given - Provider: Tree Gotti RN)0507 (Given - Provider: Tree Gotti RN)1250 (Given - Provider: Ashley Moses) methylPREDNISolone sodium succinate (PF) (SOLU-MEDROL) 40 mg/mL injection 40 mg (CANCELED) 40 mg, Intravenous, 2 TIMES DAILY, First dose (after last modification) on [place] 11/18/12 at 2000, Until Discontinued, Routine 2018 (Given - Provider: Tree Gotti RN) 0904 (Given - Provider: Shavonne Gil, LINDSEY) methylPREDNISolone sodium succinate (PF) (SOLU-MEDROL) 40 mg/mL injection 80 mg (CANCELED) 80 mg, Intravenous, EVERY 8 HOURS SCHEDULED, First dose (after last modification) on Mon11/16/12 at 0445, Until Discontinued, Routine 0603 (Given - Provider: Tree Gotti RN) nystatin (MYCOSTATIN) 100,000 unit/mL oral suspension 500,000 Units (CANCELED) 500,000 Units, Oral, 2 TIMES DAILY, First dose on Mon11/16/12 at 1015, Until Discontinued, Routine 0649 (Given - Provider: Tree Gotti RN) nystatin (MYCOSTATIN) 100,000 unit/mL oral suspension 500,000 Units 500,000 Units, Oral, 3 TIMES DAILY, First dose (after last modification) on [place] 11/18/12 at 1500, Until Discontinued, Routine 1452 (Given - Provider: Karina Hernandez RN)2018 (Given - Provider: Tree Gotti RN) 0904 (Given - Provider: Shavonne Gil, LINDSEY)1500 (Given - Provider: Shavonne Gil RN)2100 (Given - Provider: Tree Gotti RN) 0858 (Given - Provider: Ashley Moses)1431 (Given - Provider: Ashley oMses) PARoxetine (PAXIL) tablet 40 mg (CANCELED) 40 mg, Oral, DAILY, First dose on Mon11/16/12 at 0900, Until Discontinued, Routine 0801 (Given - Provider: Karina Hernandez RN) 0904 (Given - Provider: Shavonne Gil RN) 0858 (Given - Provider: Ashley Moses) polyethylene glycol (MIRALAX) packet 17 g (CANCELED) 17 g, Oral, DAILY, First dose on Mon11/16/12 at 1430, Until Discontinued, Routine 0802 (Given - Provider: Karina Hernandez RN) 0904 (Given - Provider: Shavonne Gil RN) 0858 (Given - Provider: Ashley Moses) predniSONE (DELTASONE) tablet 40 mg (CANCELED) 40 mg, Oral, 2 TIMES DAILY, First dose on Mon11/19/12 at 2100, Until Discontinued, Routine 2100 (Given - Provider: Tree Gotti RN) 0858 (Given - Provider: Ashley Moses) senna-docusate (PERICOLACE) 8.6-50 mg per tablet 1 tablet (CANCELED) 1 tablet, Oral, 2 TIMES DAILY, First dose on Mon11/16/12 at 0900, Until Discontinued, Routine 08 (Given - Provider: Karina Hernandez RN)2019 (Given - Provider: Tree Gotti RN) 0904 (Given - Provider: Shavonne Gil, LINDSEY)2100 (Given - Provider: Tree Gotti RN) 0858 (Given - Provider: Ashley Moses) simvastatin (ZOCOR) tablet 20 mg (CANCELED) 20 mg, Oral, EVERY EVENING, First dose on Mon11/15/12 at 2000, Until Discontinued 1727 (Given - Provider: Karina Hernandez RN) 1700 (Given - Provider: Shavonne Gil RN) 1606 (Given - Provider: Ashley Moses) sodium chloride 0.9 % flush 5 mL (CANCELED) 5 mL, Intravenous, EVERY 12 HOURS, First dose on [place] 11/15/12 at 2000, Until Discontinued 0759 (Given - Provider: Karina Hernandez RN)1999 (Given - Provider: Tree Gotti RN) 0839 (Given - Provider: Shavonne Gil, LINDSEY)1999 (Given - Provider: Tree Gotti RN) 0859 (Given - Provider: Ashley Moses) PRN Medication Order 11/18/2012 11/19/2012 11/20/2012 acetaminophen (TYLENOL) tablet 650 mg (CANCELED) 650 mg, Oral, EVERY 4 HOURS PRN, Starting on Mon11/16/12 at 0940, Until Mon11/20/12 at 1838, Pain, Maximum dose of acetaminophen is 4000 mg from all sources in 24 hours., Routine 0650 (Given - Provider: Tree Gotti RN)1113 (Given - Provider: Karina Hernandez RN)1520 (Given - Provider: Karina Hernandez RN) 0902 (Given - Provider: Shavonne Gil, LINDSEY)1815 (Given - Provider: Erin Najera RN) 0507 (Given - Provider: Tree Gotti RN) bisacodyl (DULCOLAX) suppository 10 mg (CANCELED) 10 mg, Rectal, DAILY PRN, Starting on 11/18/12 at 0921, Until Mon11/20/12 at 1838, Constipation, Routine 1001 (Given - Provider: Karina Hernandez RN) 0902 (Given - Provider: Shavonne Gil RN) 1120 (Given by Other - Provider: Ashley Moses - Comment: Pt. self administered) calcium carbonate (TUMS) chewable tablet 500 mg (CANCELED) 500 mg, Oral, 3 TIMES DAILY PRN, Starting on Mon11/18/12 at 1538, Until Mon11/20/12 at 1838, Heartburn, Routine 1637 (Given - Provider: Karina Hernandez RN) diphenhydrAMINE (BENADRYL) capsule 25 mg (CANCELED) 25 mg, Oral, EVERY 6 HOURS PRN, Starting on 8/4/13 at 1717, Until Mon11/20/12 at 1838, Itching, Routine 1727 (Given - Provider: Karina Hernandez, RN) 2001 (Given - Provider: Tree Gotti, LINDSEY) ipratropium-albuterol (DUONEB) 0.5 mg-3 mg(2.5 mg base)/3 mL nebulizer solution 3 mL (CANCELED) 3 mL, Nebulization, EVERY 2 HOURS PRN, Starting on [place] 11/15/12 at 2118, Until Mon11/20/12 at 1838, Wheezing, Routine 2140 (Given - Provider: Tree Gotti, LINDSEY) LORazepam (ATIVAN) tablet 0.5 mg 0.5 mg, Oral, EVERY 6 HOURS PRN, Starting on Mon11/16/12 at 1040, Until Mon11/20/12 at 1838, Anxiety, Routine 1249 (Given - Provider: Karina Hernandez RN) 1142 (Given - Provider: Maty Robin, LINDSEY) 1248 (Given - Provider: Ashley Moses) documented in this encounter Care Teams Bracelet Maker Novelty Relationship Specialty Start Date End Date Nayana Newberry MD [address] [place] [address] PCP - General 03/09/10 documented as of this encounter
--- OUTSIDE RECORDS SUMMARY | 2023-12-15 06:17 | XMS_ITS | Encounter Summary ---
Author Organization [facility] Address [facility] [place] [address] Care Team Providers Care Geometry Tutor Name Role Phone Nayana Blankenship MD Primary Care Provider [phone] Encounter Details Date Type Department Care Team (Latest Contact Info) Description 01/15/2013 12:17 PM EDT - 01/15/2013 11:59 PM EDT Hospital Encounter [place] [address] SCHEDULE 1, PFT Wm De Leon MD [facility] [place] [address] Pneumonia, interstitial (Primary Dx) Discharge Disposition: Home Social History [...] times daily 05/14/2010 predniSONE (DELTASONE) 10 mg tabletIndications:Cr yptogenic organizing pneumonia Take 1 tablet by mouth daily. 100 tablet 3 01/15/2013 02/27/2013 fluticasone-salmeter ol (ADVAIR DISKUS) 500-50 mcg/dose diskus [...] of this encounter Procedure Notes * Hazel Lynne MD - 01/15/2013 3:13 PM EDTAssociated Order(s): PULMONARY FUNCTION TEST Spirometry suggests mild airflow obstruction. By ATS criteria, there is no significant bronchodilator response. However, there was 180 ml (12%) increase in the FEV1 with administration of the bronchodilator. Clinical correlation is recommended. The total lung capacity is normal. Diffusion capacity is mildly reduced. The oxygen saturation on room air at rest is normal. HAZEL LYNNE MD documented in this encounter Plan of Treatment Not on file documented as of this encounter Procedures Procedure Name Priority Date/Time Associated Diagnosis Comments COMMON PULMONARY FUNCTION TEST Routine 01/15/2013 3:15 PM EDT Pneumonia, interstitial documented in this encounter Results * Pulmonary Function Testing (01/15/2013 3:15 PM EDT) Narrative Hazel Lynne MD - 01/15/2013 3:15 PM EDT Hazel Lynne MD ? 01/15/2013 ??3:15 PM Spirometry suggests mild airflow obstruction. By ATS criteria, there is no significant bronchodilator response. However, there was 180 ml (12%) increase in the FEV1 with administration of the bronchodilator. Clinical correlation is recommended. The total lung capacity is normal. Diffusion capacity is mildly reduced. The oxygen saturation on room air at rest is normal. HAZEL LYNNE MD Procedure Note Hazel Lynne MD - 01/15/2013 3:13 PM EDT Spirometry suggests mild airflow obstruction. By ATS criteria, there is nosignificant bronchodilator response. However, there was 180 ml (12%)increase in the FEV1 with administration of the bronchodilator. Clinicalcorrelation is recommended. The total lung capacity is normal. Diffusion capacity is mildly reduced. The oxygen saturation on room air at rest is normal. HAZEL LYNNE MD Authorizing Provider Result Ac De Leon MD PFT ORDERABLES documented in this encounter Visit Diagnoses Diagnosis Pneumonia, interstitial- Primary Other specified alveolar and parietoalveolar pneumonopathies documented in this encounter Care Teams Geometry Tutor Relationship Specialty Start Date End Date Nayana Blankenship MD [address] [place] [address] PCP - General 03/09/10 documented as of this encounter
--- OUTSIDE RECORDS SUMMARY | 2023-12-15 06:17 | XMS_ITS | Encounter Summary ---
Author Organization [facility] Address [facility] [place] [address] Care Team Providers Care Balance Wheel Screw Hole Driller Name Role Phone Nayana Blankenship MD Primary Care Provider [phone] Encounter Details Date Type Department Care Team (Late st Contact Info) Description 10/28/2012 Orders [place] [address] Kortnye Barlow MD [facility] [address] HOSPICE AND [place] [address] Social History Tobacco Use Types Packs/Day Years [...] Diagnosis Comments FILM LIBRARY STORAGE ONLY CT ABDOMEN Routine 10/28/2012 8:02 PM EDT FILM LIBRARY STORAGE ONLY CT CHEST Routine 10/28/2012 1:26 PM EDT documented in this encounter Results * Film Library- Storage only CT Abdomen (10/28/2012 8:02 PM EDT) 10/28/2012 8:02 PM EDT Narrative [facility] - 12/10/2013 11:48 PM EDT This is a non-reportable exam. Procedure Note Jules Burk - 12/10/2013 This is a non-reportable exam. Kortney Barlow MD [facility] [place]M LIBRARY ORDERABLES Performing Organization Address City/[facility]/ZIP Co de Phone Number [phone] [employer] [facility] [place] [address] * Film Library- Storage only CT Chest (10/28/2012 1:26 PM EDT) 10/28/2012 1:26 PM EDT Narrative RAD - 12/10/2013 11:48 PM EDT This is a non-reportable exam. Procedure Note Jules Burk - 12/10/2013 This is a non-reportable exam. Kortney Barlow MD [facility] FILM LIBRARY ORDERABLES Performing Organization Address [facility] de Phone Number [phone] [employer] [facility] [place] [address] documented in this encounter Visit Diagnoses Not on filedocumented in this encounter Care Teams Balance Wheel Screw Hole Driller Relationship Specialty Start Date End Date Nayana Blankenship MD [address] [place] [address] PCP - General 03/09/10 documented as of this encounter
--- OUTSIDE RECORDS SUMMARY | 2023-12-15 06:17 | XMS_ITS | Encounter Summary ---
Author Organization [facility] Address [facility] [place] [address] Care Team Providers Care Cream Dipper Name Role Phone Nayana Blankenship MD Primary Care Provider [phone] Reason for Visit * Reason Comments Follow-up Encounter Details Date Type Department Care Team (Late st Contact Info) Description 01/15/2013 1:15 PM EDT [place] [address] Andrzej Chapman MD [facility] [place] [address] COPD (chronic obstructive pulmonary disease); Cryptogenic organizing [...] Sign Reading Time Taken Comments Blood Pressure 122/73 01/15/2013 1:27 PM EDT Pulse 93 01/15/2013 1:27 PM EDT Temperature - - Respiratory Rate 22 01/15/2013 1:27 PM EDT Oxygen Saturation 97% 01/15/2013 1:27 PM EDT Inhaled Oxygen Concentration - - Weight 92.5 kg (204 lb) 01/15/2013 1:27 PM EDT Height 154.9 cm (5' 1) 01/15/2013 1:27 PM EDT Body Mass Index 38.55 01/15/2013 1:27 PM EDT documented in this encounter Patient Instructions * Patient Instructions* Alba ByrneBASHIR - 01/15/2013 1:32 PM EDT Welcome to [facility], your secure online access to your electronic medical record at [facility]. Using [facility] you will be able to send messages to your providers, view your test results, renew prescriptions, schedule appointments, and much more. Follow these instructions to enter your personal [employer] account for the first time: 1. Start your internet browser and type [email or web address] into the address bar. 2. In the New User box on the right-hand side of the Welcome page click the link that states, ???I have an activation code.?? 3. On the Identification page, follow these steps: a) Enter your [employer] activation code: [email or web address] b) Expires: 03/01/2013 1:32 PM IMPORTANT: This Activation Code will on the above mentioned date. If you do not sign up for [employer] by this date, you will need to request another activation code. c) Enter your date of , using the calendar tool provided. d) Enter your Zip code. e) Select ???submit?? to go to the next page. 4. On the Create Account page, follow these steps: a) Create a [employer] username. This can???t be changed, so choose one you won???t forget. b) Create a password that???s at least six characters long, and that contains at least two numbers.Your password can be changed at any time. Confirm your password by entering it once more. c) Enter your email address. This will be used to alert you to new information. Confirm your email address by entering it once more. d) Enter your security question. This will be used if you forget your password. e) Enter your security answer. Confirm your security answer by entering it once more. f) Select ???submit?? to view your electronic medical record. If you have any questions about [facility] or your Access Code, please call for [facility], for [facility] or for [place]. If you need technical support, please e-mail [email or web address]. Remember, my[facility] is NOT for urgent needs! Always dial 911 for medical emergencies. documented in this encounter Progress Notes * Wm De Leon MD - 01/29/2013 6:11 PM EDT This very complicated patient has been described very well in Dr. Gordon's note with which I agree fully. She has a lot of earmarks of DIESEL ENGINE II PIPE FITTER and we decided to label her as such even though she had somemild hemoptysis in the early going. The slow steroid taper that he describes is the safest was not to have a relapse because she had a response to prednisone on CT scan. He will follow her closely. * Andrzej Chapman MD - 01/15/2013 9:02 AM EDT [facility] Section of Pulmonary and Critical Care Medicine Follow-Up Visit Date of Encounter: 01/15/2013 Location: Office Referring Provider: Nayana Blankenship Md [address] [address] C/C: DIESEL ENGINE II PIPE FITTER and COPD HPI: 63 y/o female seen as [...] the last 10 years for respiratory issues. Recently she was admitted to [facility] in November after being transferred from an OSH for further evaluation of SOB/hemoptysis from 11/15/12-11/20/12. Prior to the current admission she was treated with couple of courses of antibiotics for a sinus infection followed by SOB starting around August of 2012. She however continued to feel SOB for she was seen in ER at [facility] around mid October. A chest CT done at that time showed emphysema with b/l ground glass opacities. She also had a couple of days of hemoptysis at the end of October. She was than transferred to [facility] for further work up and management. During her hospital course she was t reated for COPD exacerbation w/ methylprednisone and duonebs. She also received Ceftriaxone and azithromycin for CAP. Blood and sputum cultures were normal and viral DFA and Legionella Ag were negative. Etiologies considered for her presentation were Jass's/Granulomatosis Polyangitiitis (GPA), Microscopic Polyangiitis (MPA), Churg Laura, Goodpasture's, RPGN, Lupus, Hypersensitivity pneumonitis. However, ANGIE, cANCA, pANCA, MPO, Pr3 and Hypersensitivity panel were all negative. IgA and IgM were wnl and IgG only slightly below normal. The patient was unable to complete a DLCO test to eval for diffuse alveolar hemorrhage. Following the treatment her hypoxia improved and she was discharged to complete 5d of her Abx and on a steroid taper (initially at 60mg qd). When last seen in office she again complained of some hemoptysis the day before (brown tinged sputum - no radha bright red blood). She also reported some dull achy chest pain that did not radiate and was reprodicable on chest wall palpation. Notably the acute worsening of symptoms over the weekend coincided with reducing steroids to 10mg qd. Based on that her steroid dose was increased to 30 mg to see if this relieves her symptoms. 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 Based on follow up telephone conversation her chest tightness significantly improved together with no more gaby colored sputum. The plan therefore was to keep her on this dose until her repeat CT scan and PFT followed by an office visit on Jan 15. Few days a ago patients PCP called in regards to some concerns regarding adverse effects of steroids. Since seen last she did well but for a last week or so she is having more SOB on exertion. She has chronic cough with white phlegm, no fever/chills, and no URI symptoms. She is not using Duoneb very often either than more than once a month on an average. She had b/l chest pressure for couple of days about couple of weeks ago. She was at [place], [place] in ER. She was discharged with everything being normal. At the baseline she denies any rest/exertional CP, orthopnea, or PND. Overall she feels the things are better at this time since last seen. She does snore at night time, +ve fatigue during the day, no spontaneous sleeping spells, and does have a history of HTN. She has never been talked about possibility of VIVIENNE but she herself has thought about it. She recently had overnight pulse oxymetry at home per her PCP with results not known yet. She does not remember having TTE done before. She is on oxygen at 2L managed by her PCP. On today's visit her resting O2 sat was 97% on RA. At home she mentioned it does go down in 80's on walking around. Recently she had memory issues about 3 weeks ago and lasted for about a week. She was having hard time forming sentences, thinking right, or remembering simple things like current year. It seems likeit has mostly all resolved at this time. Talking to her PCP recently there were concerns patient becoming cushingoid along with BGMs in 200s due to steroids. The PCP also mentioned that patient once told her about something crawling on her head consistent with ?psychosis. Although on my conversation over the phone with patient she denied any s/s c/w psychosis. At that time the plan was to keep her on same steroid dose and that she be seen January 15 when we will readdress these issues. She again on today's visit denied any hallucination or delusions. She has history of anxiety which was worse in between when she was out of her medication (Paxil). She is back on it but still feels a bit more anxious though able to carry on with her ADLs. She also does have a history of GERD which is beinghelped by the PPi. Past Medical History: Past Medical History Diagnosis Date ??? COPD (chronic obstructive pulmonary disease) ??? Anxiety ??? Depression ??? Hypertension ??? Arthritis ??? GERD (gastroesophageal reflux disease) ??? Hepatitis C Past Surgical History: Past Surgical History Procedure Date ??? Clavicle surgery broken left clavicle ??? Nose surgery broken nose ??? 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 predniSONE (DELTASONE) 20 mg tablet Active Take 1.5 tablets by mouth daily. 30 tablet 1 ??? sulfamethoxazole-trimethoprim (SULFAMETHOXAZOLE-TRIMETHOPRIM) 800-160 mg per tablet Active Take1 tablet by mouth daily. Take one tablet every Mon, Wed, Fri 30 tablet 0 ??? amitriptyline (ELAVIL) 75 mg tablet Active Take 1 tablet by mouth nightly. 90 tablet 3 ??? amlodipine (NORVASC) 10 mg tablet Active Take 1 tablet by mouth daily. 30 tablet 3 ??? fluticasone-salmeterol (ADVAIR DISKUS) 500-50 mcg/dose diskus inhaler Active Inhale 1 puff intothe lungs 2 times daily. 1 Inhaler 0 ??? omeprazole (PRILOSEC) 20 mg capsule Active Take 1 capsule by mouth daily. 90 capsule 3 ??? PARoxetine (PAXIL) 40 mg tablet Active Take 1 tablet by mouth every morning. 90 tablet 3 ??? simvastatin (ZOCOR) 20 mg tablet Active Take 1 tablet by mouth nightly. 90 tablet 3 ??? tiotropium (SPIRIVA WITH HANDIHALER) 18 mcg inhalation capsule Active Inhale 1 capsule into thelungs daily. 90 capsule 0 ??? LORazepam (ATIVAN) 0.5 mg tablet Active Take 1 tablet by mouth every 6 hours as needed for Anxiety. 30 tablet 0 ??? busPIRone (BUSPAR) 15 mg tablet Active Take 1 tablet by mouth 2 times daily. Take 1 tab PO qam,2 tabs PO qpm 90 tablet 3 ??? CIS Free Text Med - BuSpar Active ??? DICLOFENAC SODIUM/MISOPROSTOL (ARTHROTEC 50 ORAL) Active ??? ERGOCALCIFEROL, VITAMIN D2, (VITAMIN D ORAL) Active ??? ibuprofen (ADVIL;MOTRIN) 800 mg tablet Active 800 MG = 1 Tablet(s), PO, Three times daily ??? levalbuterol (XOPENEX) 0.63 mg/3 mL nebulizer solution Active Take 3 mLs by nebulization every 4 hours as needed for Wheezing. 3 mL 0 ??? nystatin (MYCOSTATIN) 100,000 unit/mL suspension Active Take 5 mLs by mouth 3 times daily as needed. 60 mL 0 ??? ipratropium-albuterol (DUONEB) 0.5 mg-3 mg(2.5 mg base)/3 mL nebulizer solution Active Take 3 mLs by nebulization every 4 hours as needed. Adverse Drug Reactions: Allergies Allergen Reactions ??? [...] NIGHTMARES, CIS - NIGHTMARES Review of Systems: GENERAL HEENT CV PULM x All negative x All negative All negative All negative Weight loss Headache Angina Non-productive cough Weight gain Vision change Palpitations Productive cough Fevers Sinus congestion Presyncope Wheezing Chills Rhinorrhea Syncope Hemoptysis Diaphoresis Epistaxis LE edema Pleuritic pain Poor sleep Post-nasal drip Claudication Orthopnea Fatigue Throat clearing x As in HPI Paroxysmal dyspnea Dry eyes/mouth Platypnea Globus sensation x As in HPI Hoarseness MSK RENAL ENDO GI/NUTRITION x All negative x All negative x All negative x All negative Arthralgias Polyuria Heat intolerance GERD Myalgias Oliguria Cold intolerance Dysphagia Deformity Hematuria Polydipsia Odynophagia Stiffness Flank pain Polyphagia Abdominal discomfort Wasting Dysuria Cushingoid Constipation Hyperglycemia Diarrhea Hypoglycemia Steatorrhea LYMPH SKIN NEURO PSYCH x All negative All negative x All negative All negative Swollen nodes Rash Seizures Depressed affect Tender nodes Ulcers Tremors Occupational stress Diffuse nodes Purpura Spasticity Troubled relationship(s) Local nodes Pigmented lesion Focal weakness x Insomnia Telangiectasias Diplopia x Anxiety Angiomata Paresthesias Absenteeism x Easy bruising Physical Examination: BP 122/73 Pulse 93 Resp 22 Ht 154.9 cm (5' 1) Wt 92.534 kg (204 lb) BMI 38.55 kg/m2 SpO2 97% GENERAL APPEARANCE: sitting in chair comfortably, able to talk in full sentences HEENT: NC and AT, ear/nose symmetrical and non tender NECK: supple, no cervical lymphadenopathy CHEST: CTA b/l HEART: S1 S2, RRR, no m/r/g, no l/e edema GI/ABDOMEN: soft, non tender, BS+, no inguinal adenopathy MUSCULO: normal ROM, no joint swelling SKIN: no rash, warm, dry IMAGING: CT CHEST 01/15/13: Resolved interstitial thickening, with [...] is well as other inflammatory infectious alveolitis/process. SPIROMETRY: FEV1/FVC 58, FVC 2.76 (95%), FEV1 1.6 (72%), TLC 4.33 (96%), RV 1.22 (76%), RV/TLC 28 (79%0, Dsb 11.93 (67%) BD response - borderline positive My interpretation: Mild obstruction, mild impairment in diffusion On walking her to and from rot[place] her O2 saturation went down to 89% at the minimum. She was evidently subjectively SOB with her oxygenation mostly in 90- 91% range. Assessment and Plan: 1. DIESEL ENGINE II PIPE FITTER: responding very well to steroids with significantly improved CT CHEST done today as detailed above. She has been on 30 mg for the last 2 months. All side effects of steroid were again discussed in detail. They will have to be dealt as they come along was also discussed with the patient as risk benefit ratio favor. The steroids should ideally be tapered over 6-12 months to prevent relapse.At this time with her significant improvement we will taper it down to 25 mg for a month followed yb 20 mg for a month until seen in clinic. She should continue her Bactrim along with Calcium and Vitamin D. At this time the impaired memory episode she had does not seem to be due to steroids. However, if it certain point in time the side effects seem to be over whelming we will have to readdress the risk benefit ratio. We plan on obtaining CXR and ambulatory pulse oxygenation on next office visit as follow up. If things did not look well or needing further evaluation we will think about obtaining PFT and CT CHEST at that point of time. She was encouraged to call with any questions or concerns as they arise. She was also told they if her OSH special trackwork blacksmith feels comfortable with following her up she can be followed there as well. 2. COPD: mild in nature with mild impairment in diffusion per PFT done earlier today. Continue current therapy i.e. Advair, Spiriva, and Duoneb prn. 3. ?VIVIENNE: recently overnight pulse oxymetry done by PCP with result not known yet. She does snore with thick neck, fatigue during day, and HTN. She should get a proper sleep study done. She will follow up with her PCP or her Assistant Professor Of Business at OSH to get it arranged. Also, with her having hypoxia in spite of mild impaired diffusion on PFT it would be interesting to get TTE to assess for pulmonary HTN. 4. Hypoxia: secondary to #2 with additional causes which need to be worked up as discussed in #3. Her oxygenation should probably be maintained around 90% at all time. Patient was seen and discussed with Dr De Leon. documented in this encounter Plan of Treatment Not on file documented as of this encounter Visit Diagnoses Diagnosis COPD (chronic obstructive pulmonary disease) Chronic airway obstruction, not elsewhere classified Cryptogenic organizing pneumonia Other specified alveolar and parietoalveolar pneumonopathies documented in this encounter Care Teams Cream Dipper Relationship Specialty Start Date End Date Nayana Blankenship MD [address] [place] [address] PCP - General 03/09/10 documented as of this encounter
--- OUTSIDE RECORDS SUMMARY | 2023-12-15 06:17 | XMS_ITS | Encounter Summary ---
Author Organization [facility] Address [facility] [place] [address] Care Team Providers Care Marine Diver Name Role Phone Nayana Blankenship MD Primary Care Provider [phone] Encounter Details Date Type Department Care Team (Late st Contact Info) Description 03/01/2013 [place] [address] Andrzej Chapman MD [facility] [place] [address] Social History Tobacco Use Types Packs/Day Years [...] on filedocumented in this encounter Care Teams Marine Diver Relationship Specialty Start Date End Date Nayana Blankenship MD [address] [place], [place] [id number] PCP - General 03/09/10 documented as of this encounter
--- OUTSIDE RECORDS SUMMARY | 2023-12-15 06:17 | XMS_ITS | Encounter Summary ---
Author Organization [facility] Address [facility] [place] [address] Care Team Providers Care Team Automobile Assembler Name Role Phone Nayana Blankenship MD Primary Care Provider [phone] Reason for Visit * Reason Comments Follow-up prior hopital admiss ion/ short of breath Encounter Details Date Type Department Care Team (Late st Contact Info) Description 12/04/2012 3:30 PM EDT Office [place] [id number] Wm De Leon MD [facility] [place] [address] COPD (chronic obstructive pulmonary disease) (Primary Dx) Discharge Disposition: Home Social History [...] Sign Reading Time Taken Comments Blood Pressure 133/71 12/04/2012 2:55 PM EDT Pulse 94 12/04/2012 2:55 PM EDT Temperature - - Respiratory Rate 16 12/04/2012 2:55 PM EDT Oxygen Saturation 97% 12/04/2012 2:55 PM EDT on 3 liters of 2 Inhaled Oxygen Concentration - - Weight 88.9 kg (196 lb) 12/04/2012 2:55 PM EDT Height 157.5 cm (5' 2) 12/04/2012 2:55 PM EDT Body Mass Index 35.85 12/04/2012 2:55 PM EDT documented in this encounter Patient Instructions * Patient Instructions* Evi Betancourt MD - 12/04/2012 4:34 PM EDT FOLLOW-UP: 1. Get a Chest XRay, A blood draw for CBC and give a sample for Urinalysis today before you leave at 3L 2. Medication changes - Increase prednisone to 30mg a day until we see you back - Start the antibiotic bactrim every other day to prevent lung infection with PCP 3. Pay attention to your symptoms and we will discuss by telephone in 3-4d 4. We will decide follow-up visit depending on how you are doing. documented in this encounter Progress Notes * Wm De Leon MD - 12/05/2012 10:40 AM EDT I saw Mrs. Caballero with Dr. Betancourt. Her thoughts were generated after discussion with me. We were struck by a previous CT scan in 2010 that showed no GGO's nor any interstitial changes, only a severe amount of emphysema. The CT from June 2012 showed some of what we now see in later October and November,namely GGO and interstitial markings. Given the lack of infectious sxs despite her being treated with abxs during her recent admission and a fairly dramatic response to Prednisone with taper we feel that we are dealing with an inflammatory process. There are no serologic markers that help specify which inflammation we are dealing with. The presence of hemoptysis suggests the possibility of a pulmonary hemorrhage syndrome, but the serologic tests have not clarified this. The hematuria without rbc or granular casts may not be related to this inflammatory process and the fact that the urine was clear today with her sxs re igniting would favor no relationship. There has not been an association with any cardiac sxs although some of the radiographic changes would fit with LV failure. We would go forward with cardiac echo if patient does not improve again given that hemoptysis could be associated with this. It is understandable that the team was reluctant doing a transbronchial bx given the amount of emphysema and risk of pneumothorax. I would favor the dx of MERCANTILE AGENT, but time will tell. The choice of 30mg of Prednisone may not be enough to again turn off the process, but given the fact that the comparison of the floor director film on the 11/14 CT and today's chest film showing improvement inthe interim I felt that it was enough to once again put the lid on the process. Dr. Betancourt will do phone follow up with the patient in a few days. and patient know to call if things worsen. * Evi Betancourt MD - 12/04/2012 5:30 PM EDT NEW PATIENT VISIT: PULMONARY CLINIC ID: Ms. Caballero is a 62 yo lady, former smoker w/ hx COPD (2L baseline), recurrent PNAs and HTN who presents today for f/u s/p hospitalization at [facility] on 11/15/12 for SOB and hemoptysis. HPI: Ms Caballero states that a year ago she was only using supplemental O2 2-3x a week with walking/activity and had been able to walk a mile uphill. She reports that she feels her functional status hasdeclined over a year ago but noticeably so after a sinus infection in ~August 2012. She was treated with 2 courses of Abx but her MEZA did not resolve and she needed 2L of O2 during the day everyday. She has a hx of being hospitalized at least once a year for the last 10 years for respiratory issues. She had PNA requiring hospitalization in the ICU in 2004, had a strep milari PNA in 2009 that required decortication and was hospitalized again in 06/2012 for PNA. Concerned about continual desaturation, she went to the [facility] again in mid October and CT showed emphysema and b/l ground glass opacities. She also had a couple of days of hemoptysis at the end of October. She was admitted to [facility] for further tx and w/u -11/20/12. She was treated for COPD exacerbation w/ methylprednisone and duonebs. She received Ceftriaxone and azithromycin for CAP. Blood and sputum cultures were normal and viral DFA and Legionella Ag were negative. Etiologies considered for her presentation to [facility] were Jass's/Granulomatosis Polyangitiitis (GPA), Microscopic Polyangiitis (MPA), Churg Laura, Goodpasture's, RPGN, Lupus, Hypersensitivity pneumonitis. However, ANGIE, cANCA, pANCA, MPO, Pr3 and Hypersensitivity panel were all negative. IgA and IgM were wnl and IgG only slightly below normal. The patient was unable to complete a DLCO test to eval for diffuse alveolar hemorrhage. Her hypoxia improved and she was discharged to complete 5d of her Abx and on a steroid taper (initially at 60mg qd). She was feeling better until last Monday. She then developed a low grade fever andfatigue on Monday w/ an episode of dislodging her nasal cannula while sleeping and needing a couple of hours of reoxygenation to get her sats above 90%. She also noted some hemoptysis yesterday, with brown tinged sputum - no radha bright red blood. She thought about going to the ED but decided tohold off until her appointment w/ Pulm clinic today. Her vital signs were stable in clinic, sats 97% on 3L supplemental O2. She also reported some dull achy chest pain that did not radiate and was rep rodicable on chest wall palpation and also present w/ heartburn sx. Notably the acute worsening of sx over the weekend coincided with reducing steroids to 10mg qd. ROS: (positives are bolded) General: fever, chills, night sweats, fatigue, malaise, weight changes HEENT: headache, changes in vision, changes in hearing, dysphagia, rhinorrhea, sore throat, cough, sputum, LAD CVS: chest pain, palpitations, orthopnea, PND, claudication Lungs: SOB, MEZA, Hemoptysis GI: nausea, vomiting, diarrhea, constipation, abd pain, distension, melena, hematochezia : dysuria, hematuria, polyuria, nocturia, dark yellow colored urine MSK: myalgias, arthralgias Extrems; NO edema Neuro: weakness, numbness, imbalance Skin: masses, rashes, lesions Psych: sleep, anhedonia, hopelessness, helplessness, guilt, energy, mood, concentration, appetite, psychomotor retardation, suicidal/homicidal ideation/intention Past Medical History Diagnosis Date ??? COPD (chronic obstructive pulmonary disease) ??? Anxiety ??? Depression ??? Hypertension ??? Arthritis ??? GERD (gastroesophageal reflux disease) ??? Hepatitis C Past Surgical History Procedure Date ??? Clavicle surgery broken left clavicle ??? Nose surgery broken nose ??? Lung decortication 2/2 strep milari empyema Allergies Allergen Reactions ??? Alendronate Sodium CIS [...] NIGHTMARES, CIS - NIGHTMARES, CIS - NIGHTMARES Current Outpatient Prescriptions on File Prior to Visit Medication Status Sig Dispense Refill ??? amitriptyline (ELAVIL) 75 mg tablet Active [...] into thelungs daily. 90 capsule 0 ??? busPIRone (BUSPAR) 15 mg tablet Active Take 1 tablet by mouth 2 times daily. Take 1 tab PO qam,2 tabs PO qpm 90 tablet 3 ??? nystatin (MYCOSTATIN) 100,000 unit/mL suspension Active Take 5 mLs by mouth 3 times daily as needed. 60 mL 0 ??? predniSONE (DELTASONE) 20 mg tablet Discontinued Please take 3 tablets po for 4 days; then 2 tablets po for 4 days; then 1 tablet po for 4 days; then 1/2 tablet po for 4 days 30 tablet 0 ??? ipratropium-albuterol (DUONEB) 0.5 mg-3 mg(2.5 mg base)/3 mL nebulizer solution Active Take 3 mLs by nebulization every 4 hours as needed. ??? CIS Free Text Med - BuSpar Active ??? DICLOFENAC SODIUM/MISOPROSTOL (ARTHROTEC 50 ORAL) Active ??? ERGOCALCIFEROL, VITAMIN D2, (VITAMIN D ORAL) Active ??? ibuprofen (ADVIL;MOTRIN) 800 mg tablet Active 800 MG = 1 Tablet(s), PO, Three times daily ??? LORazepam (ATIVAN) 0.5 mg tablet Active Take 1 tablet by mouth every 6 hours as needed for Anxiety. 30 tablet 0 Family History Problem Relation Age of Onset ??? Myocardial Infarction Father 62 ??? Coronary Artery Disease Mother ??? Coronary Artery Disease Father ??? Coronary Artery Disease Sister ??? Coronary Artery Disease Brother History Substance Use Topics ??? Smoking status: Former Smoker ??? Smokeless tobacco: Not on file ??? Alcohol Use: No A few beers a week Objective: Filed Vitals: 12/04/12 1455 BP: 133/71 Pulse: 94 Resp: 16 Height: 157.5 cm (5' 2) Weight: 88.905 kg (196 lb) SpO2: 97% General: Sitting comfortably, in NAD, though appears a bit nervous HEENT: NC/AT, EOMI, moist mucus membranes, clear oropharynx, single palpable 2cm, firm cervical lymph node on left side under mandible CVS: NRRR, physiologic S1/S2, no MRG Lungs: CTAB, good respiratory effort, No wheezes or rales, wearing nasal cannula at 3L, Able to speak in full sentences, No use of accessory muscles Abd: Soft, NT/ND, active BS Ext: warm, no clubbing/cyanosis. No peripheral edema Neuro: AAOX3, CNII-XII grossly intact, strength 5/5, sensory intact, LABS 11/2012: Recent Results (from the past 24 hour(s)) CBC (WITH DIFF) Component Value Range WBC 12.0 (*) 4.0 - 10.0 x10(3)/mcL RBC 3.87 (*) 3.93 - 5.22 x10(6)/mcL Hemoglobin 11.8 11.2 - 15.7 gm/dL Hematocrit 35.6 34.0 - 45.0 % MCV 92.0 79.0 - 94.0 fL MCH 30.5 26.6 - 32.2 pg MCHC 33.1 32.0 - 36.5 gm/dL Platelets 257 145 - 370 x10(3)/mcL RDWSD 45.3 35.0 - 46.0 fL RDWCV 13.7 10.9 - 14.4 % MPV 8.7 (*) 9.0 - 12.0 fL DIFFERENTIAL, AUTOMATED Component Value Range Neutrophils % 82.4 (*) 34.0 - 71.0 % Neutr Abs (ANC) 9.93 (*) 1.50 - 6.30 x10(3)/mcL Lymphocytes % 11.9 (*) 19.0 - 53.0 % Lymphocytes Abs 1.4 1.0 - 3.6 x10(3)/mcL Monocytes % 4.3 4.0 - 13.0 % Monocyte Abs 0.5 0.2 - 1.0 x10(3)/mcL Eosinophils % 0.7 0.0 - 7.0 % Eosinophils Abs 0.1 0.0 - 0.5 x10(3)/mcL Basophils % 0.1 0.0 - 2.0 % Basophils Abs 0.0 0.0 - 0.2 x10(3)/mcL Immature Gran % 0.60 0.00 - 0.66 % Genoveva Gran Abs 0.07 (*) 0.00 - 0.05 x10(3)/mcL URINALYSIS WITH MICROSCOPIC Component Value Range Glucose UA Negative Negative mg/dL Protein UA Negative Bilirubin UA Negative Negative mg/dL Urobilinogen UA Normal pH UA 6.5 5.0 - 8.0 Blood UA Negative Ketones UA Negative Nitrite UA Negative Leukocytes UA Negative Appearance UA Clear Clear Spec [place] UA 1.006 1.002 - 1.030 Color UA Light Yellow Yellow RBC UA <1 0 - 4 /HPF WBC UA 1 0 - 5 /HPF Squam Epith UA 1 <=4 /HPF Pertinent Radiographic/Diagnostic Results: CT CHEST OSH on admission (2 nd read @ [facility]) from 11/15: Impression:- 1. Underlying upper lobe predominant centrilobular emphysema with interval development of irregularinterstitial septal thickening with upper lung zone predominance and developing peripheral honeycombing/fibrotic changes most pronounced in the left upper lobe superior segment left lower lobe. 2. Accompanying patchy ground-glass opacities throughout both lungs, as above. Differential considerations for ground-glass opacities would include hemorrhage is well as other inflammatory infectious alveolitis/process. Assessment : Ms. Caballero is a 62 yo lady, former smoker w/ hx COPD (2L baseline), recurrent PNAs and HTN who presents today for f/u s/p hospitalization at [facility] on 11/15/12 for SOB and hemoptysis and new findings of b/l ground glass opacities on CT. Prior workup for GPA, MPA, Goodpasture's, RPGN, Lupus has been negative. Her presentation appears more inflammatory in nature and has been responsive to st eroids and notably worsened when tapering steroids. The hypersensitivity panel was negative, thoughit evaluates a limited number of possibilities (Aspergillus fumigatus S Micropolyspora faeni, and Thermoactinomyces vulgaris). There is no hx of drug changes, interactions with birds or dust/inhalation environmental exposures. She may have an idiopathic cryptogenic organizing pneumonia (MERCANTILE AGENT). Will increase her steroid dose and evaluate if this relieves her sx. If not, will pursue bronchoscopy andbiopsy. Plan: - CXR, CBC and UA today - Increase prednisone to 30mg qd - Add Bactrim DS QOD while on 30mg prednisone for PCP ppx - F/u telecon in 3-4d to see if her sx are improving (pt home tel: [phone]) - Consider Bronchoscopy w/ biopsy as next step if she does not improve EVI BETANCOURT MD Internal Medicine Resident PGY1 Pager #[phone] 12/04/2012 documented in this encounter Plan of Treatment Not on file documented as of this encounter Procedures Procedure Name Priority Date/Time Associated Diagnosis Comments URINALYSIS WITH REFLEX CULTURE Routine 12/04/2012 5:08 PM EDT COPD (chronic obstructive pulmonary disease) DIFFERENTIAL, AUTOMATED Routine 12/04/2012 5:02 PM EDT CBC (WITH DIFF) Routine 12/04/2012 5:02 PM EDT COPD (chronic obstructive pulmonary disease) documented in this encounter Results * Urinalysis with microscopic (12/04/2012 5:08 PM EDT) Glucose, Urine Dipstick Negative Negative mg/dL CERNER MILLENNIUM Protein, Urine Dipstick Negative mg/dL CERNER MILLENNIUM Bilirubin, Urine Dipstick Negative Negative mg/dL CERNER MILLENNIUM Urobilinogen, Urine Dipstick Normal mg/dL CERNER MILLENNIUM pH, Urn (dipstick) 6.5 5.0 - 8.0 CERNER MILLENNIUM Blood, Urine Dipstick Negative mg/dL CERNER MILLENNIUM Ketone, Urine Dipstick Negative mg/dL CERNER MILLENNIUM Nitrite, Urine Dipstick Negative CERNER MILLENNIUM Leukocytes, Urine Dipstick Negative mcL CERNER MILLENNIUM Appearance, Urine Dipstick Clear Clear CERNER MILLENNIUM Specific [place] Urine Automated 1.006 1.002 - 1.030 CERNER MILLENNIUM Color, Urine Dipstick Light Yellow Yellow CERNER MILLENNIUM RBC, Urine <1 0 - 4 /HPF CERNER MILLENNIUM WBC, Urine 1 0 - 5 /HPF CERNER MILLENNIUM Squamous Epithelial Cells, Urine 1 <=4 /HPF CERNER MILLENNIUM Urine specimen (specimen) 12/04/2012 5:08 PM EDT 12/04/2012 5:12 PM EDT Narrative Resulting Agency Comment Spec In Lab Wm De Leon MD URINE ORDERABLES CERNER MILLENNIUM * (ABNORMAL) Differential, Automated (12/04/2012 5:02 PM EDT) Neutrophil % 82.4(H) 34.0 - 71.0 % CERNER MILLENNIUM Neutrophil Absolute 9.93(H) 1.50 - 6.30 x10(3)/mc L CERNER MILLENNIUM Lymph % 11.9(L) 19.0 - 53.0 % CERNER MILLENNIUM Lymphocytes Abs 1.4 1.0 - 3.6 x10(3)/mc L CERNER MILLENNIUM Monocyte % 4.3 4.0 - 13.0 % CERNER MILLENNIUM Monocyte Abs 0.5 0.2 - 1.0 x10(3)/mc L CERNER MILLENNIUM Eos % 0.7 0.0 - 7.0 % CERNER MILLENNIUM Eosinophils Abs 0.1 0.0 - 0.5 x10(3)/mc L CERNER MILLENNIUM Basophil % 0.1 0.0 - 2.0 % CERNER MILLENNIUM Baso Absolute 0.0 0.0 - 0.2 x10(3)/mc L CERNER MILLENNIUM Immature Gran % 0.60 0.00 - 0.66 % CERNER MILLENNIUM Comment: Immature granulocytes(IG's)percentage and absolute count will include metamyelocytes, myelocytes, and promyelocytes. Blood smears from CBCs yielding IG's will be scanned manually for concordance. If this scan disagrees with the automated IG or if promyelocytes are noted, a manual differential will be performed. Immature Gran Absolute 0.07(H) 0.00 - 0.05 x10(3)/mc L CERNER MILLENNIUM Blood specimen (specimen) 12/04/2012 5:02 PM EDT 12/04/2012 5:05 PM EDT H Susan De Leon MD HEMATOLOGY ORDERABLE S CERCHAPINCITO SHANEENNIUM * (ABNORMAL) CBC (with Diff) (12/04/2012 5:02 PM EDT) White Blood Cell 12.0(H) 4.0 - 10.0 x10(3)/mc L CERNER MILLENNIUM Red Blood Cell 3.87(L) 3.93 - 5.22 x10(6)/mc L CERNER MILLENNIUM Hemoglobin 11.8 11.2 - 15.7 gm/dL CERNER MILLENNIUM Hematocrit 35.6 34.0 - 45.0 % CERNER MILLENNIUM Mean Cell Volume 92.0 79.0 - 94.0 fL CERNER MILLENNIUM Mean Cell Hemoglobin 30.5 26.6 - 32.2 pg CERNER MILLENNIUM Mean Cell Hemoglobin Concentration 33.1 32.0 - 36.5 gm/dL CERNER MILLENNIUM Platelet 257 145 - 370 x10(3)/mc L CERNER MILLENNIUM RDW Standard Deviation 45.3 35.0 - 46.0 fL CERNER MILLENNIUM RDW coefficient of variation 13.7 10.9 - 14.4 % CERNER MILLENNIUM Mean Platelet Volume 8.7(L) 9.0 - 12.0 fL CERNER MILLENNIUM Blood specimen (specimen) 12/04/2012 5:02 PM EDT 12/04/2012 5:05 PM EDT Narrative Resulting Agency Comment Spec In Lab H Susan De Leon MD HEMATOLOGY ORDERABLE S TEMITOPE SIEGELIUM * XR chest routine PA & lateral (12/04/2012 4:58 PM EDT) Anatomical Region Laterality Modality Chest N/A Radiographic Nan ging 12/04/2012 4:58 PM EDT Narrative 12/04/2012 6:29 PM EDT Examination CHEST ROUTINE PA+LAT Clinical History hemoptysis, SOB Comparison November 12, [address] November 14, 2012. Technique PA and lateral chest. Findings Underlying chronic reticular changes of the lungs. A mild increase in opacity is seen in the periphery of the right mid lung. This is primarily concerning for a new pneumonic infiltrate versus focus of alveolar hemorrhage. Suggest followup chest x-rays to resolution. ?? Left lung remains clear. ??Stable cardiomediastinal silhouette. ??No pleural effusion. Procedure Note Alda Capellan MD - 12/04/2012 Examination CHEST ROUTINE PA+LAT Clinical History hemoptysis, SOB Comparison November 12, [address] November 14, 2012. Technique PA and lateral chest. Findings Underlying chronic reticular changes of the lungs. A mild increase inopacity is seen in the periphery of the right mid lung. This is primarilyconcerning for a new pneumonic infiltrate versus focus of alveolar hemorrhage.Suggest followup chest x-rays to resolution. Left lung remains clear. Stable cardiomediastinal silhouette. No pleural effusion. Authorizing Provider Result Ac De Leon MD IMG DX ORDERABLES documented in this encounter Visit Diagnoses Diagnosis COPD (chronic obstructive pulmonary disease)- Primary Chronic airway obstruction, not elsewhere classified COPD (chronic obstructive pulmonary disease) Chronic airway obstruction, not elsewhere classified documented in this encounter Care Teams Team Automobile Assembler Relationship Specialty Start Date End Date Nayana Blankenship MD [address] [place] [address] PCP - General 03/09/10 documented as of this encounter
--- OUTSIDE RECORDS SUMMARY | 2023-12-15 06:17 | XMS_ITS | Encounter Summary ---
Author Organization [facility] Address [facility] [place] [address] Care Team Providers Care Medical Record Librarian Name Role Phone Nayana Blankenship MD Primary Care Provider [phone] Encounter Details Date Type Department Care Team (Late st Contact Info) Description 10/28/2012 Orders [place] [address] Kortney Barlow MD [facility] [address] [facility] [place] [address] Social History Tobacco Use Types Packs/Day Years [...] FILM LIBRARY STORAGE ONLY DX CHEST Routine 10/28/2012 12:57 PM EDT documented in this encounter Results * Film Library- Storage only DX Chest (10/28/2012 12:57 PM EDT) 10/28/2012 12:5 7 PM EDT Narrative RAD - 12/10/2013 11:48 PM EDT This is a non-reportable exam. Procedure Note Jules Burk - 12/10/2013 This is a non-reportable exam. Kortney Barlow MD IMG FILM LIBRARY ORDERABLES RAD [id number] [employer] [place] [address] documented in this encounter Visit Diagnoses Not on filedocumented in this encounter Care Teams Medical Record Librarian Relationship Specialty Start Date End Date Nayana Blankenship MD [address] [place] [address] PCP - General 03/09/10 documented as of this encounter
--- OUTSIDE RECORDS SUMMARY | 2023-12-15 06:17 | XMS_ITS | Encounter Summary ---
Author Organization [facility] Address [facility] [place] [address] Care Team Providers Care Barrel Waterer Name Role Phone Nayana Blankenship MD Primary Care Provider [phone] Encounter Details Date Type Department Care Team (Latest Contact Info) Description 01/15/2013 11:01 AM EDT - 01/15/2013 11:59 PM EDT Hospital [place] [address] CLINIC, Wm Ledbetter MD [facility] [place] [address] Pneumonia, interstitial Discharge Disposition: Home Social History Tobacco Use [...] Name Priority Date/Time Associated Diagnosis Comments CT CHEST WO CONTRAST (GENERIC) Routine 01/15/2013 11:23 AM EDT Pneumonia, interstitial documented in this encounter Results * CT chest WO contrast (01/15/2013 11:23 AM EDT) Anatomical Region Laterality Modality Chest Computed Tomogra phy 01/15/2013 11:2 3 AM EDT Narrative 01/15/2013 12:[address] chest without contrast Clinical History Cryptogenic Organizing Pneumonia Technique 3.75 mm thick axial contiguous sections were obtained through the chest via helical acquisition without intravenous contrast administration. Thin-section reconstructions as well as coronal and sagittal reformatted images were generated to aid in evaluation. ?? Comparison Contrast-enhanced chest CT from [facility] on 11/14/2012. Findings Pulmonary parenchyma and airways: ?? Extensive, upper lung predominant, right slightly greater than left centrilobular emphysematous change. Lung volumes are increased compared to prior consistent with deeper inspiration manifest by rounding/ convexity of the posterior tracheal membrane compared to previous flattening/concavity. ?? Previous interstitial thickening appears resolved. Linear atelectasis versus scarring at the left base. ?? No definite new or progressive parenchymal/ interstitial pathology. Pleura: No significant findings. Lymph nodes:No lymph node enlargement, within limitations of non contrast examination. Heart, pericardium, and great vessels:Minimal pericardial fluid ventrally within physiologic limits. . Other mediastinal structures: No significant interval findings. Lower neck:No significant interval findings. Upper abdomen:No significant interval findings. Skeletal structures:Right lateral rib fractures, as before, with no new osseous pathology observed. Impression Resolved interstitial thickening, with no evidence of in interstitial process/fibrosing lung disorder. No new or progressive pulmonary pathology. ?? Centrilobular emphysema. Procedure Note Kell Bear MD - 01/15/[address] chest without contrast Clinical History Cryptogenic Organizing Pneumonia Technique 3.75 mm thick axial contiguous sections were obtained through the chestvia helical acquisition without intravenous contrast administration.Thin-section reconstructions as well as coronal and sagittal reformatted images were generated to aid in evaluation. Comparison Contrast-enhanced chest CT from [facility] on 11/14/2012. Findings Pulmonary parenchyma and airways: Extensive, upper lung predominant, right slightly greater than left centrilobular emphysematous change. Lung volumes are increased compared to prior consistent with deeperinspiration manifest by rounding/ convexity of the posterior tracheal membranecompared to previous flattening/concavity. Previous interstitial thickening appears resolved. Linear atelectasis versus scarring at the left base. No definite new or progressive parenchymal/ interstitial pathology. Pleura: No significant findings. Lymph nodes:No lymph node enlargement, within limitations of non contrast examination. Heart, pericardium, and great vessels:Minimal pericardial fluid ventrally within physiologic limits. . Other mediastinal structures: No significant interval findings. Lower neck:No significant interval findings. Upper abdomen:No significant interval findings. Skeletal structures:Right lateral rib fractures, as before, with no newosseous pathology observed. Impression Resolved interstitial thickening, with no evidence of in interstitial process/fibrosing lung disorder. No new or progressive pulmonarypathology. Centrilobular emphysema. Wm De Leon MD IMG CT ORDERABLES documented in this encounter Visit Diagnoses Diagnosis Pneumonia, interstitial Other specified alveolar and parietoalveolar pneumonopathies documented in this encounter Care Teams Barrel Waterer Relationship Specialty Start Date End Date Nayana Blankenship MD [address] [place] [address] PCP - General 03/09/10 documented as of this encounter
--- OUTSIDE RECORDS SUMMARY | 2023-12-15 06:17 | XMS_ITS | Encounter Summary ---
Author Organization [facility] Address [facility] [place] [address] Care Team Providers Care Shape Hand Name Role Phone Nayana Blankenship MD Primary Care Provider [phone] Reason for Visit * Reason Onset Date Comments Medication Problem 01/09/2013 Encounter Details Date Type Department Care Team (Late st Contact Info) Description 01/09/2013 [place] [address] Wm De Leon MD [facility] [place] [address] Medication Problem Social History Tobacco Use Types Packs/Day Years [...] Telephone Encounter - Andrzej Chapman MD - 01/09/2013 2:06 PM EDT Called and spoke with the PCP who is concerned with her becoming cushingoid along with BGMs in 200sdue to steroids. The PCP also mentioned that patient once told her about something crwwling on her head consistent with ?psychosis. On my conversation over the phone with patient she denied any s/s c/w psychosis. At this time the plan is to keep her on same dose. I will be seeing the patient on January 15 and will readdress these issues at that time. * Telephone Encounter - Andrzej Chapman MD - 01/09/2013 1:37 PM EDT Patient called and discussed her concerns. Symptomatically she has been doing well. She does complain of some memory issues for about a week with no s/s to suggest psychosis. She does have anxiety which has been stable. At this she will continue her current Prednisone 30 mg PO dose until seen in office. * Telephone Encounter - Parmjit Nolasco RN - 01/09/2013 1:08 PM EDT PCP calling regarding Prednisone taper. Will forward. documented in this encounter Plan of Treatment Not on file documented as of this encounter Visit Diagnoses Not on filedocumented in this encounter Care Teams Shape Hand Relationship Specialty Start Date End Date Nayana Blankenship MD [address] [place] [address] PCP - General 03/09/10 documented as of this encounter
--- OUTSIDE RECORDS SUMMARY | 2023-12-15 06:17 | XMS_ITS | Encounter Summary ---
Author Organization [facility] Address [facility] [place] [address] Care Team Providers Care Foot Cutter Name Role Phone Nayana Blankenship MD Primary Care Provider [phone] Reason for Visit * Reason Onset Date Comments COPD 12/13/2012 Follow up after Rx change in office visit 2 weeks ago Encounter Details Date Type Department Care Team (Late st Contact Info) Description 12/13/2012 [place] [id number] Evi Betancourt MD [facility] [place] [address] COPD (Follow up after Rx change in office visit 2 weeks ago) Social History Tobacco Use Types Packs/Day Years [...] encounter Miscellaneous Notes * Telephone Encounter - Evi Betancourt MD - 12/14/2012 1:35 PM EDT Spoke to Ms. Caballero by telephone today (12/13/12) to see how she has been doing since her office visit a couple of weeks ago. She reports meaningful improvement as follows: - Now down to her baseline 2L supplemental O2 - Chest tightness almost gone - no more gaby colored sputum - able to walk up and down hill a short distance on 2L O2 - able to be w/o any supplemental O2 sometimes when sitting down at rest She is still taking prednisone at 30mg qd per last visit and bactrim. Since she is improving, we will keep her on this dose until her repeat CT scan and office visit on Jan 15. Will also do PFTs on that day. Called pt on 12/14/12 and advised her as follows: - continue prednisone at 30mg qd - continue Bactrim while on steroids - continue VitD at 800IU qd while on steroids - add Ca 1200mg/d (take 3 TUMS or 4xglasses of milk a day) while on steroids - she stated she is seeing her PCP in a couple of weeks and will ask about alternatives to bisphosphonate while on steroids (she reports being unable to take that before) - f/u office visit on 01/15/13 at [facility], w/ PFTs and CT-chest that same day EVI BETANCOURT MD 12/14/2012 documented in this encounter Plan of Treatment [...] at rest is normal. HAZEL LYNNE MD Wm De Leon MD PFT ORDERABLES * CT chest WO contrast (01/15/2013 11:23 [...] evaluation. ?? Comparison Contrast-enhanced chest CT from [facility] on 11/14/2012. Findings Pulmonary parenchyma and [...] in evaluation. Comparison Contrast-enhanced chest CT from [facility] on 11/14/2012. Findings Pulmonary parenchyma and [...] No new or progressive pulmonarypathology. Centrilobular emphysema. Authorizing Provider Result Ac De Leon MD IMG CT ORDERABLES documented in this encounter Visit Diagnoses Diagnosis Pneumonia, interstitial- Primary Other specified alveolar and parietoalveolar pneumonopathies Pneumonia, interstitial- Primary Other specified alveolar and parietoalveolar pneumonopathies Pneumonia, interstitial Other specified alveolar and parietoalveolar pneumonopathies documented in this encounter Care Teams Foot Cutter Relationship Specialty Start Date End Date Nayana Blankenship MD [address] [address] PCP - General 03/09/10 documented as of this encounter
--- OUTSIDE RECORDS SUMMARY | 2023-12-15 06:17 | XMS_ITS | Encounter Summary ---
Author Organization [facility] Address [facility] [place] [address] Care Team Providers Care Ring Packer Name Role Phone Nayana Blankenship MD Primary Care Provider Encounter Details Date Type Department Care Team (Late st Contact Info) Description 05/14/2010 11:00 AM EST Follow-Up [place] [address] CLINIC, Abdulaziz Nixon MD [facility] [place] [address] Discharge Disposition: Home Social History Tobacco Use [...] on filedocumented in this encounter Care Teams Ring Packer Relationship Specialty Start Date End Date Nayana Blankenship MD [address] [place], [place] [address] PCP - General 03/09/10 documented as of this encounter
--- OUTSIDE RECORDS SUMMARY | 2023-12-15 06:17 | XMS_ITS | Encounter Summary ---
Author Organization [facility] Address [facility] [place] [address] Care Team Providers Care Unbundler Name Role Phone Nayana Blankenship MD Primary Care Provider [phone] Encounter Details Date Type Department Care Team (Late st Contact Info) Description 11/12/2012 Orders Only [place] [address] Kortney Barlow MD [facility] [address] [facility] [place] [address] Social History Tobacco Use Types Packs/Day Years [...] FILM LIBRARY STORAGE ONLY DX CHEST Routine 11/12/2012 8:02 PM EDT documented in this encounter Results * Film Library- Storage only DX Chest (11/12/2012 8:02 PM EDT) 11/12/2012 8:02 PM EDT Narrative RAD - 12/10/2013 11:48 PM EDT This is a non-reportable exam. Procedure Note Jules Burk - 12/10/2013 This is a non-reportable exam. Kortney Barlow MD IMG FILM LIBRARY ORDERABLES RAD [address] [place] [address] documented in this encounter Visit Diagnoses Not on filedocumented in this encounter Care Teams Unbundler Relationship Specialty Start Date End Date Nayana Blankenship MD [address] [place] [address] PCP - General 03/09/10 documented as of this encounter
--- OUTSIDE RECORDS SUMMARY | 2023-12-15 06:17 | XMS_ITS | Encounter Summary ---
Author Organization [facility] Address [facility] [address] Care Team Providers Care Machine Packager Name Role Phone Nayana Blankenship MD Primary Care Provider [phone] Encounter Details Date Type Department Care Team (Latest Contact Info) Description 12/04/2012 4:47 PM EDT - 12/04/2012 11:59 PM EDT Hospital Encounter XRay at [address] [place] [address] CLINIC, Wm Ledbetter MD [facility] [address] COPD (chronic obstructive pulmonary disease) Discharge Disposition: [...] 1 Tablet(s), PO, Three times daily 05/14/2010 fluticasone-salmeter ol (ADVAIR DISKUS) 500-50 mcg/dose diskus [...] Comments XR CHEST PA AND LATERAL Routine 12/04/2012 4:58 PM EDT COPD (chronic obstructive pulmonary disease) documented in this encounter Results * XR [...] classified documented in this encounter Care Teams Machine Packager Relationship Specialty Start Date End Date Nayana Blankenship MD [address] [place] [address] PCP - General 03/09/10 documented as of this encounter
--- OUTSIDE RECORDS SUMMARY | 2023-12-15 06:17 | XMS_ITS | Encounter Summary ---
Author Organization [facility] Address [facility] [place] [address] Care Team Providers Care Bullion Weigher Name Role Phone Nayana Blankenship MD Primary Care Provider [phone] Reason for Visit * Reason Comments Follow-up Encounter Details Date Type Department Care Team (Late st Contact Info) Description 03/26/2013 1:15 PM EST [place] [address] Andrzej Chapman MD [facility] [place] [address] ILD (interstitial lung disease) (Primary Dx); Acute exacerbation of chronic obstructive airways disease Discharge Disposition: Home Social History Tobacco Use [...] Sign Reading Time Taken Comments Blood Pressure 136/75 03/26/2013 1:19 PM EST Pulse 105 03/26/2013 1:19 PM EST Temperature - - Respiratory Rate 22 03/26/2013 1:19 PM EST Oxygen Saturation 98% 03/26/2013 1:19 PM EST Inhaled Oxygen Concentration - - Weight 95.3 kg (210 lb) 03/26/2013 1:19 PM EST Height 157.5 cm (5' 2) 03/26/2013 1:19 PM EST Body Mass Index 38.41 03/26/2013 1:19 PM EST documented in this encounter Patient Instructions * Patient Instructions* Alba Byrne LPN - 03/26/2013 1:24 PM EST I would like you to sign up for myD-H, which will give you secure online access to your electronic medical record at [facility] and the ability to communicate with your health care team whenand where it???s most convenient for you. With myD-H you will be able to: - look at parts of your medical record including test results and office notes - send and receive messages to/from me and your other providers - renew prescriptions - schedule appointments. To sign up, go to [email or web address] and click I have an activation code and follow the instructions. Here is your activation code: [email or web address] Expires: 05/10/2013 1:24 PM Remember, myD-H is NOT for urgent needs! Always dial 911 for medical emergencies. documented in this encounter Progress Notes * Wm De Leon MD - 03/26/2013 3:49 PM EST Pulmonary/CCM Attending I have seen this patient with Dr. Gordon and contributed to his plan as outlined. Mrs. 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 The reassuring things are that there are no new crackles and that there is no change in the brief walk on room air that Dr. Chapman took her on. Therefore we feel that we can leave her prednisone at the same level as she recovers from this event and then taper to ten mg if her sats and sxs at home are stable. She will then be seen in early May on 10mg and we will then make a decision how many more months we need to leave her at this level before stopping it. * Andrzej Chapman MD - 03/26/2013 7:06 AM EST 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 Recently she was admitted to [facility] in November after being transferred from an OSH for further evaluation of SOB/hemoptysis from 11/15/12-11/20/12. Prior to the current admission she was treated with couple of courses of antibiotics for a sinus infection followed by SOB starting around August of 2012. She however continued to feel SOB for she was seen in ER at [facility] around mid October. A chest CT done at that time showed emphysema with b/l ground glass opacities. She also had a couple of days of hemoptysis at the end of October. She was than transferred to [facility] for further work up and management. 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 [...] some concerns regarding adverse effects of steroids. Interval Hisotry: Since last seen she ended up in hospital for CAP for which she was treated with ceftriaxone and doxycycline. At that time on admission she did have a leukocytosis of 22k and was saturating 98% at 3L NC. She did well during her hospital stay with resolution of leukocytosis (8.5k at discharge) and her O2 requirement down to baseline at 2L NC. On discharge, she was continued on doxycycline, and her ceftriaxone was switched to cefpodoxime, both for 7 more days. During the stay her she was also bumped up on Prednisone to 60mg (from her home dose of 20mg). It was able to be titrated back to 20mg bythe time of her discharge. When seen today she complained of a week history of nasal congestion, post nasal drip, sore throat,ear side pressure/pain on right, cough prodcutive of clear phlegm with blood in it at times. The blood was dark red and mixed in with phlegm. She did have some blood coming from the nose as well. Shedid have a positive sick contact at home but no recent travel. She did also complain of SOB and feeling very weak/fatigue in conjunction with URI symptoms. She was seen by her PCP last Monday who started her on Levaquin x 10 day course. Prior to all this she was using 2L of oxygen all the time but since this acute episode she has gone up to 3L and 4L on moving around. She denies any rest/exertional CP, orthopnea, or PND. However, today she does feel well as compared to before. She is currently down to 15 mg since the start of the month. Prior to that since last she took 25 mg for a month and than 20 mg for a month. She denies any confusion or hallucinations. She is following up with her PCP who is managing her BGM. She has been sleeping well overnight. She has history ofanxiety which has been stable on er medications. She also does have a history of GERD which is being helped by the PPi other than being worse for the last couple of weeks. When last seen she mentioned snoring at night time together with fatigue during the day. She however denied any spontaneous sleeping spells while she does have a history of HTN. She recently had overnight pulse oxymetry at home by her PCP with occasional dips below 90%. She is scheduled for a sleepstudy after roxie this year. She does not remember having TTE done before. She was scheduled toget it done at [facility] but came down with this acute illness for which she could not make up for appointment. She will get it rescheduled. Past Medical History: Past Medical History Diagnosis Date ??? COPD (chronic obstructive pulmonary disease) ??? Anxiety ??? Depression ??? Hypertension ??? Arthritis ??? GERD (gastroesophageal reflux disease) ??? Hepatitis C Past Surgical History: Past Surgical History Procedure Date ??? Clavicle surgery broken left clavicle ??? Nose surgery broken nose ??? 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 sulfamethoxazole-trimethoprim (BACTRIM DS) 800-160 mg per [...] the lungs daily. 90 capsule 0 ??? nystatin (MYCOSTATIN) 100,000 unit/mL suspension Take [...] = 1 Tablet(s), PO, Three times daily Last reviewed on 02/24/2013 1:22 PM by Keely Foster RN Adverse Drug Reactions: Allergies Allergen Reactions ??? [...] NIGHTMARES, CIS - NIGHTMARES Review of Systems: Pertinent positives are as mentioned in above. Rest is all within normal limits. Physical Examination: Pulse 105 Resp 22 Ht 157.5 cm (5' 2) Wt 95.255 kg (210 lb) BMI 38.41 kg/m2 SpO2 98% GENERAL APPEARANCE: sitting in chair comfortably, [...] well as other inflammatory infectious alveolitis/process. SPIROMETRY: 01/15/13: FEV1/FVC 58, FVC 2.76 (95%), FEV1 1.6 (72%), TLC 4.33 (96%), RV 1.22 (76%), RV/TLC 28 (79%), Dsb 11.93 (67%) BD response - borderline [...] rest at RA she was around 94%. Assessment and Plan: 1. 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 She was on 30 mg for 2 months when last seen. At that time she was tapered down to 25 mg for a month to be followed by 20 mg until seen again. In the interim she did go down to 15 mg starting 04/28/12 due to misunderstanding. Overall she seem to be tolerating the steroids pretty well for about 4 months intotal. I did discuss the side effects of steroids again on todays visit. In the bigger picture the steroids will be ideally tapered over 6- 12 months to prevent a relapse. She is complaining of some increased SOB with URI symptoms as discussed in #5. At this time there is no evidence of her AIR TURNING MACHINE FEEDER acting up. Therefore, we should just continue with current 15 mg Prednisonedose. At the end of this month we will drop it to 10 mg. She will than stay on 10 mg until seen back by us in office. She can at this time drop Bactrim prophylaxis while continue to use Calcium and Vitamin D. She was encouraged to call with any questions or concerns as they arise. At this time plan will be to see her back in 6 weeks and assess her symptoms and pulse ox on ambulation for subjective follow up. She did not have gross abnormalities on her last CT to follow that up. Will also try to obtain any old PFT she might have done before she started to see us for AIR TURNING MACHINE FEEDER. At that point if all looks well we will likely lay down a plan for further treatment. She will than be likely able to follow up near her home with her own PCP and Autocad Technician for further care of AIR TURNING MACHINE FEEDER. 2. COPD: mild in nature with mild impairment in diffusion per PFT done earlier today. Continue current therapy i.e. Advair, Spiriva, and Duoneb prn. 3. ?VIVIENNE: recently overnight pulse oxymetry done by PCP with dipping of oxygen saturation <90% per patient. She does snore at night,does have a thick neck, is fatigued during day, and does have HTN. She is scheduled for sleep study on 04/11/13 at [facility] as recommended on prior visit. Lavon also follow up on TTE to be rescheduled to assess for pulmonary HTN. 4. Hypoxia: secondary to #2 with additional causes which need to be worked up as discussed in #3. At this pending TTE to evaluate for pulmonary HTN her oxygenation should probably be >90% at all time. 5. URI: she is having nasal congestion together with some right sided ear pain, feeling fatigued, and worsening subjective SOB. She is currently on Nasonex, Claritin, and Levaquin as prescribed by her supervisor pipe finishing. This most likely represents viral illness which should be getting better hopefully in a week or two. She is already feeling better today and will need to be just followed with supportive care for now. 6. Vaccination: last flu shot was in Dec 2012. She mentioned she had a pneumonia shot once before.She will be due for another pneumonia shot at age 66. Follow up in 6 weeks. Patient was seen and discussed with Dr De Leon. documented in this encounter Plan of Treatment Not on file documented as of this encounter Visit Diagnoses Diagnosis ILD (interstitial lung disease)- Primary Postinflammatory pulmonary fibrosis Acute exacerbation of chronic obstructive airways disease Obstructive chronic bronchitis with exacerbation documented in this encounter Care Teams Bullion Weigher Relationship Specialty Start Date End Date Nayana Blankenship MD [address] [place] [address] PCP - General 03/09/10 documented as of this encounter
--- OUTSIDE RECORDS SUMMARY | 2023-12-15 06:17 | XMS_ITS | Encounter Summary ---
Author Organization [facility] Address [facility] [place] [address] Care Team Providers Care Circus Performer Name Role Phone Nayana Blankenship MD Primary Care Provider [phone] Encounter Details Date Type Department Care Team (Late st Contact Info) Description 11/20/2012 External Results XRay at [address] [place] [address] Provider, Scanning Social History Tobacco Use Types [...] Name Priority Date/Time Associated Diagnosis Comments CT SCAN (SCAN) Routine 11/14/2012 DIAGNOSTIC RADIOLOGY SCAN Routine 11/12/2012 CT SCAN (SCAN) Routine 06/16/2012 DIAGNOSTIC RADIOLOGY SCAN Routine 06/16/2012 documented in this encounter Results * Scan Doc: CT Scan (11/14/2012) Anatomical Region Laterality Modality Other Scanning Provider MEDIA MGR SCAN EXT O RDR/RSLT * Scan Doc: Diagnostic Radiology (11/12/2012) Anatomical Region Laterality Modality Other Scanning Provider MEDIA MGR SCAN EXT O RDR/RSLT * Scan Doc: Diagnostic Radiology (06/16/2012) Anatomical Region Laterality Modality Other Scanning Provider MEDIA MGR SCAN EXT O RDR/RSLT * Scan Doc: CT Scan (06/16/2012) Anatomical Region Laterality Modality Other Scanning Provider MEDIA MGR SCAN EXT O RDR/RSLT documented in this encounter Visit Diagnoses Not on filedocumented in this encounter Care Teams Circus Performer Relationship Specialty Start Date End Date Nayana Blankenship MD [address] [place] [id number] PCP - General 03/09/10 documented as of this encounter
--- OUTSIDE RECORDS SUMMARY | 2023-12-15 06:17 | XMS_ITS | Encounter Summary ---
Author Organization [facility] Address [facility] [place] [address] Care Team Providers Care Outboard System Operator Name Role Phone Hien Newberry MD Primary Care Provider [phone] Reason for Visit * Reason Comments Shortness of Breath Encounter Details Date Type Department Care Team (Latest Contact Info) Description 02/24/2013 4:46 PM EST - 02/27/2013 2:04 PM EST Hospital Encounter [address] [place] [id number] Niharika Latif MD [facility] [place] [address] [facility] [place] [address] Cryptogenic organizing pneumonia; Pneumonia Discharge Disposition: Home Social History Tobacco Use [...] Sign Reading Time Taken Comments Blood Pressure 147/69 02/27/2013 12:33 PM EST Pulse 88 02/27/2013 12:33 PM EST Temperature 36.5 ??C (97.7 ??F) 02/27/2013 12:[address] Respiratory Rate 20 02/27/2013 12:33 PM EST Oxygen Saturation 95% 02/27/2013 12:33 PM EST Inhaled Oxygen Concentration - - Weight 97.3 kg (214 lb 9.6 oz) 02/24/2013 6:47 P M EST Height 157.5 cm (5' 2) 02/24/2013 6:47 PM EST Body Mass Index 39.25 02/24/2013 6:47 PM EST documented in this encounter Discharge Instructions * Patient Instructions* Luis F Cohen - 02/27/2013 11:58 AM EST Instruction after leaving the hospital Why you were hospitalized: Pneumonia Call your doctor or seek medical attention if you develop the following: Fever, increasing shortness of breath, increased sputum production Activity level: As tolerated Diet: No restrictions Driving: No restrictions Shower/Bath: No restrictions Home Oxygen therapy: Resume home oxygen at 2L NC Specific instructions related to your condition: - You were given two antibiotics (Cefpodoxime and doxycycline) to continue for 7 days after discharge. Please start taking these medications tomorrow, and continue until all pills of the antibiotics are finished. - You can resume your home COPD regimen as you were taking prior to admission. Please note that youwere recently started on prednisone 20mg Follow-Up Appointments 03/26/2013 1:15 PM Andrzej Chapman MD Pulmonology [phone] [facility] Joint Appt Nurse Res-Pulmonary [facility] [phone] [facility] Your Inpatient Doctor(s) at [facility]: Dr. Shirin Cohen documented in this encounter Medications at Time [...] 1 Tablet(s), PO, Three times daily 05/14/2010 pneumococcal (PNEUMOVAX-23, PPSV23,) 25 mcg/0.5 mL injection Inject 0.5 mLs into the muscle once for 1 dose. 0.5 mL 0 02/27/2013 02/27/2013 doxycycline (VIBRA-TABS) 100 mg tablet Take 1 [...] 09/13/19 14 documented as of this encounter Progress Notes * Karina Hernandez RN - 02/27/2013 1:49 PM EST Patient Name: Kyleigh Caballero Patient Age: 63 y.o. Birthdate: 1950 Admit date: 02/24/2013 Attending Physician: Misael Carpio MD Patient discharged home via personal car and hunband. AVS reviewed with patient and . VS stable. Patient baseline home on 2L oxygen. Patient verbalizes understanding of antibiotic. Patient given DM education book and nutrition carb counting sheet as well. Patient refusing pneumococcal vaccine at this time. States she previously received it. All questions answered. 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 I spent <30 minutes (Day of Discharge Code 83704) involved in the final examination of the patient, discussion of the hospital stay, instructions for continuing care to all relevant caregivers, and preparation of discharge records, prescriptions and referral forms. Plans Discharge to Home Complete course of abx for CAP, taper steroids back to baseline dose of 20 mg (for NEWS PRODUCTION ASSISTANT) Follow-up scheduled with pulmonology Please see the Discharge Summary for complete details of any medication changes and additional plans. MISAEL CARPIO MD * Misael Carpio MD - 02/26/2013 6:57 AM EST Inpatient Medicine Progress Note Patient info: Name: Kyleigh Caballero : 1950 PCP: HIEN NEWBERRY MD PCP phone number: [phone] Date of Admission: 02/24/2013 ( Hospital Day 2 days ) Responsible Attending:Misael Carpio MD ID: [id number] y.o. F admitted for RLL pneumonia Hospital Problem List: #RLL Pneumonia #COPD Resolved Problems: None 24 Hour Events/Subjective: - No acute events o/n - Started on home arthrotec and diazepam - patient feels better on the whole this morning, in regards to her breathing as well - tolerating po well - denies f/c/n/v/d - c/o constipation x 3days - PRN's: vicodin 5/500 x 5 Other Meds: ??? docusate sodium 100 mg Oral BID ### ??? predniSONE 50 mg Oral Daily ### ??? diaZEPam 5 mg Oral BID ### ??? diclofenac 75 mg Oral BID ### ??? misoprostol 200 mcg Oral BID ### ??? ipratropium-albuterol 3 mL Nebulization Q4H ### ??? nystatin 500,000 Units Oral 4 Times Daily ### ??? doxycycline 100 mg Oral Q12H DEVANG ### ??? amitriptyline 75 mg Oral Nightly ### ??? amlodipine 10 mg Oral Daily ### ??? PARoxetine 40 mg Oral QAM ### ??? sodium chloride 0.9 % 5 mL Intravenous Q12H ### ??? enoxaparin 40 mg Subcutaneous Daily ### ??? pramipexole 1 mg Oral Nightly ### ??? fluticasone-salmeterol 2 puff Inhalation Q12H DEVANG ### ??? esomeprazole 40 mg Oral Daily ### ??? cefTRIaxone 1 g Intravenous Q24H ### ??? simvastatin 20 mg Oral Nightly ### ? ? insulin aspart 2-8 Units Subcutaneous 4 Times Daily AC & HS ### ??? [DISCONTINUED] predniSONE 60 mg Oral Daily ### Vitals: Last value Range last 24 hrs Temperature Temp: (RN wants Pt to sleep) Temp: [36.3 ??C (97.3 ??F)-36.9 ??C (98.4 ??F)] Heart Rate Heart Rate: 80 Heart Rate: [80-100] Blood Pressure BP: 155/79 mmHg BP: (113-155)/(58-89) Respiratory Rate Resp: 26 Resp: [18-26] SpO2 SpO2: 95 %@ 3L SpO2: [95 %-98 %] Intake/Output Summary (Last 24 hours) at 02/26/13 0657 Last data filed at 02/25/13 1736 Gross per 24 hour Intake 720 ml Output 0 ml Net 720 ml Patient Vitals for the past 168 hrs: Weight 02/24/13 1847 97.342 kg (214 lb 9.6 oz) Physical Exam: Gen: AAOX3, NAD. Coughing multiple times productive of yellow/brown sputum with slight red streaks HEENT: without oral lesions CV: S2 slightly accentuated, RRR, no m/r/g Resp: coarse breath sounds RML/RLL, no wheezes, decreased breath sounds to bibasilar zones Abd: Obese, Soft, NT, ND, NABS Ext: No c/c/e, DP/PT pulses 2+ and symmetric Skin: No rashes, sores or ulcers Neuro: No focal deficits, full ROM in all extremities Labs: Recent Labs Basename 02/26/13 0446 02/25/13 0554 02/24/13 1305 WBC 14.0* 16.8* 22.8* HGB 10.4* 10.6* 10.6* HCT 32.8* 32.4* 32.7* PLATELET 269 259 248 NEUTROABS 11.54* 15.12* -- Recent Labs Basename 02/26/13 0446 02/25/13 0554 02/24/13 1305 NA 137 135 126* K 4.1 4.0 4.2 CL 98 99 90* CO2 27 27 24 BUN 16 11 11 CREATININE 0.83 0.78 0.92 Recent Labs Basename 02/26/13 0446 02/25/13 0554 CALCIUM 9.2 9.0 MAGNESIUM -- -- PHOS -- -- Microbiology: Sputum Cx: NURF Pertinent radiology/diagnostic studies: CXR 02/24 Impression: Increased opacity in the right lower lung consistent with new pneumonia versus alveolar hemorrhage Assessment: 63 y/o F with Hx of COPD on 2L home oxygen, hx of strep milliari s/p decortication presents with RLL PNA. Clinically improving,as evidenced by maintaining afebrility, downtrending WBC. Her o2 requirement continues to decrease, and it is possible that she will be back to her 2L NC requirement very shortly. She is currently on an increased prednisone dosage compared ot her home dosage of 20mg. Given her clinical improvement, will down titrate her prednisone dosage gradually. Will keep with the current abx regimen, and switch to po likely tomorrow Plan: # RLL PNA - Continue rocephin and doxycycline. Will consider switching ceftriaxone to cefpodoxime tomorrow - Down titrate supplemental o2 to baseline of 2L NC as long as SaO2 > 90% - trend WBC. currently decreasing # COPD - Decrease prednisone to 30mg tomorrow AM - continue advair, duonebs (in favor of home spiriva), and alb nebs prn # Oral care - given recent dental extraction and use of steroids, continue home nystatin - vicodin prn pain #Constipation - already on bowel regimen. Continue - miralax x 1 today # PPx: DVT- lovenox CODE STATUS: Full Code Dispo- home upon return to supplemental oxygen baseline, normalization of WBC's Luis F Cohen, PGY-1 #[id number] 02/26/[address] Medicine Service Attending Documentation I certify that the patient requires: [X] inpatient care status due to iv abx [] Observation Care Please see Dr. Cohen' note for details of the patient history of presentation and data. I have discussed, reviewed and agree with the documented History, Physical findings, Assessment and Plan of care. I have examined the patient myself and personally reviewed all studies. Additions to the history, physical, assessment and plan include the following: Starting to feel a little better but still SOB w/ little exertion. O2 req't down to 3 L. WBC down to 14 from 16 from 22. Sputum cx grew mixed upper respiratory nancy. Continue ceftriaxone / doxy for CAP Tapering prednisone back toward baseline dose of 20 mg Continue nebs Wean O2 back to baseline of 2 L as tolerated Anticipate d/c home in the next 24-48 hrs if she continues to improve MISAEL CARPIO MD 02/26/2013 * Misael Carpio MD - 02/25/2013 4:47 PM EST Inpatient Medicine Progress Note Patient info: Name: Kyleigh Caballero : 1950 PCP: HIEN NEWBERRY MD PCP phone number: [phone] Date of Admission: 02/24/2013 ( Hospital Day 1 day ) Responsible Attending:Misael Carpio MD ID: 63 y.o. F admitted for RLL pneumonia Hospital Problem List: #RLL Pneumonia #COPD Resolved Problems: None 24 Hour Events/Subjective: - No acute events o/n - Started on home arthrotec and diazepam - Patient states that she feels subjectively worse on the whole this morning, especially in regardsto her breathing - tolerating po well - denies f/c/n/v/d Other Meds: ??? docusate sodium 100 mg Oral BID ### ??? predniSONE 50 mg Oral Daily ### ??? diaZEPam 5 mg Oral BID ### ??? diclofenac 75 mg Oral BID ### ??? misoprostol 200 mcg Oral BID ### ??? ipratropium-albuterol 3 mL Nebulization Q4H ### ??? nystatin 500,000 Units Oral 4 Times Daily ### ??? doxycycline 100 mg Oral Q12H DEVANG ### ??? amitriptyline 75 mg Oral Nightly ### ??? amlodipine 10 mg Oral Daily ### ??? PARoxetine 40 mg Oral QAM ### ??? sodium chloride 0.9 % 5 mL Intravenous Q12H ### ??? enoxaparin 40 mg Subcutaneous Daily ### ??? pramipexole 1 mg Oral Nightly ### ??? fluticasone-salmeterol 2 puff Inhalation Q12H DEVANG ### ??? esomeprazole 40 mg Oral Daily ### ??? cefTRIaxone 1 g Intravenous Q24H ### ??? simvastatin 20 mg Oral Nightly ### ??? [COMPLETED] misoprostol 200 mcg Oral Once ### ??? [COMPLETED] diclofenac 75 mg Oral Once ### ? ? insulin aspart 2-8 Units Subcutaneous 4 Times Daily AC & HS ### ??? [DISCONTINUED] diclofenac-misoprostol 1 tablet Oral TID ### ??? [DISCONTINUED] fluticasone-salmeterol 1 puff Inhalation BID ### ??? [DISCONTINUED] omeprazole 20 mg Oral Daily ### ??? [DISCONTINUED] predniSONE 60 mg Oral Daily ### ??? [DISCONTINUED] simvastatin 10 mg Oral Nightly ### ??? [DISCONTINUED] cefTRIaxone 1 g Intravenous Q24H ### ??? [DISCONTINUED] predniSONE 60 mg Oral Daily ### ? ? [DISCONTINUED] insulin aspart 0-8 Units Subcutaneous 4 Times Daily AC & HS ### Vitals: Last value Range last 24 hrs Temperature Temp: 36.3 ??C (97.3 ??F) Temp: [36.3 ??C (97.3 ??F)-36.9 ??C (98.4 ??F)] Heart Rate Heart Rate: 97 Heart Rate: [80-100] Blood Pressure BP: 130/68 mmHg BP: (119-138)/(53-72) Respiratory Rate Resp: 22 Resp: [18-22] SpO2 SpO2: 96 %@ 3L SpO2: [95 %-100 %] Intake/Output Summary (Last 24 hours) at 02/25/13 1647 Last data filed at 02/25/13 1527 Gross per 24 hour Intake 1140 ml Output 0 ml Net 1140 ml Patient Vitals for the past 168 hrs: Weight 02/24/13 1847 97.342 kg (214 lb 9.6 oz) Physical Exam: Gen: AAOX3, NAD HEENT: without oral lesions CV: S2 slightly accentuated, RRR, no m/r/g Resp: coarse breath sounds RML/RLL, no wheezes, decreased breath sounds to bibasilar zones Abd: Obese, Soft, NT, ND, NABS Ext: No c/c/e, DP/PT pulses 2+ and symmetric Skin: No rashes, sores or ulcers Neuro: No focal deficits, full ROM in all extremities Labs: Recent Labs Basename 02/25/13 0554 02/24/13 1305 WBC 16.8* 22.8* HGB 10.6* 10.6* HCT 32.4* 32.7* PLATELET 259 248 NEUTROABS 15.12* -- Recent Labs Basename 02/25/13 0554 02/24/13 1305 NA 135 126* K 4.0 4.2 CL 99 90* CO2 27 24 BUN 11 11 CREATININE 0.78 0.92 Recent Labs Basename 02/25/13 0554 CALCIUM 9.0 MAGNESIUM -- PHOS -- Microbiology: Sputum Cx: NURF Pertinent radiology/diagnostic studies: CXR 02/24 Impression: Increased opacity in the right lower lung consistent with new pneumonia versus alveolar hemorrhage Assessment: 63 y/o F with Hx of COPD on 2L home oxygen, hx of strep milliari s/p decortication presents with RLL PNA. Clinically improving,as evidenced by maintaining afebrility, downtrending WBC. However, she is above her baseline in terms of oxygen requirement. Will plan to start po abx in the near future. She is currently on an increased prednisone dosage compared ot her home dosage of 20mg. Given her clinical improvement, will down titrate her prednisone dosage gradually Plan: # RLL PNA - Continue rocephin and doxycycline - Down titrate supplemental o2 to baseline of 2L NC - trend WBC # COPD - Decrease prednisone from 60mg to 50mg starting tomorrow AM - continue advair, duonebs (in favor of home spiriva), and alb nebs prn # Oral care - given recent dental extraction and use of steroids, continue home nystatin - vicodin prn pain # PPx: DVT- lovenox CODE STATUS: Full Code Dispo- home upon return to supplemental oxygen baseline, normalization of WBC's Luis F Cohen, PGY-1 #[id number] 02/25/[address] Medicine Service Attending Documentation I certify that the patient requires: [X] inpatient care status due to iv abx for pneumonia. [] Observation Care Please see Dr. Cohen' note for details of the patient history of presentation and data. I have discussed, reviewed and agree with the documented History, Physical findings, Assessment and Plan of care. I have examined the patient myself and personally reviewed all studies. Additions to the history, physical, assessment and plan include the following: Subjectively feels a little worse with increased cough, but objectively looks and sounds better to me. Continue abx and follow cultures. Taper steroids back to baseline dose of 20 mg relatively quickly. Continue bronchoodilators. MISAEL CARPIO MD * Bonita Mercer RN - 02/25/2013 1:41 PM EST Initial Assessment/CRC Note Office of Care Management Kyleigh Caballero 1950 [address] [facility] [id number] eDH reviewed. Report received from Dr. Luis F Cohen. Patient reviewed in multidisciplinary discharge rounds. S: I draw for fun. O: Introduced self and CRC role to patient; patient agrees to CRC services; pt currently lives withlife partner in [place], [place]. CRC contact information left on patient white board. Advance Directives: None in edh. Hospital course: admitted for treatment of pneumonia in patient with known COPD; receiving IV abx therapy Allergies Allergen Reactions ??? Alendronate Sodium CIS [...] CIS - NIGHTMARES, CIS - NIGHTMARES Current Functional Status/Mobility: up indpendently in room, furniture surfs. Baseline Functional Status/Mobility: independent Current Home Services/Use of DME vendor: [employer], - home oxygen and nebulizer. PCP: HIEN NEWBERRY MD Financial Concerns: insured via Medicare, [place] Medicaid Payment for meds - as above. Denies concerns Transportation: states she will have no difficulty Anticipated Services at Discharge: will require re-assessment closer to time of d/c. Social Support denies concerns. A: medical plan still evolving. Patient continues to require acute inpatient level of care for the treatment of COPD and pneumonia. P: This remote mortgage underwriter or colleague from the Office of Care Management will continue to follow patient to assist w/ changing needs and collaborate w/ pt, medical team and family to formulate a plan for discharge; CRC may be reached on beeper [phone] or by leaving a voice mail message at ext. [phone]. See Care Management note in eDH for detailed VNA/DME information upon discharge. Bonita Mercer RN MSN Clinical Fruit Checker Office of Care Management Pager [phone] * Chalo Gore RN - 02/24/2013 7:53 PM EST Pt received on unit at 1730. Report from ED RN by another RN on pod. VSS., lung sounds course b/l with rhonchi. HR regular. PT reports no N/V, but is having right sided chest discomfort that radiatesto her diaphragm, pt states the pain is related to prolonged coughing, MD is aware. Pt was give Vicodin 1 tablet at 1828 for pain 08/24. Admission assessment completed. Will continue to monitor documented in this encounter H&P Notes * Misael Carpio MD - 02/24/2013 3:54 PM EST Inpatient - Admission Note Problem List: COPD Pneumonia HTN ID: 63 y.o. 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 Found to have a pneumonia on imaging. History of Present Illness: 63 y.o. 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 Found to have a pneumonia on imaging. She states she was doing okay at home on 2L nasal o2. For the last few days she has been using her rescue inhaler more often. Monday night She noted severe SOB. Took quite a while to return to baseline. Yesterday her O2 level was dropping with activity more so then usual. For the last few days her sputum has changed from white to brownish with some red tinge. Monday night she felt feverish and had chills and rigors. Some pleuritic chest pain with coughing and a chest tightness. Her had a recent sinisitis 6 weeks ago. No other sick contacts. She denies nausea or vomiting. She does notesome GERD. She notes some constipation. She takes miralax PRN. No dysuria. No joint pain or rash. She recently had 3 teeth pulled last . Has been on vicodyn since. Follows with Dr De Leon for Pulm. Has been on 20mg of Pred since the beginning of the month. In the ED she is afebrile. Pulse 89. Normotensive. Sating 98% on 3L NC. Labs show a WBC of 22, (78 neutrophils, 20 bands. Hgb 10.6 plt 248. BUN 11, Cr 0.92 Trop <0.03 She was given 1gm Ceftriaxone, 100mg Doxycycline, 5-500 of vicodyn, 60mg of Prednisone. Nystatin toni and heidi Review of Systems: Per the HPI above. Past Medical and Surgical History: Past Medical History Diagnosis Date ??? COPD (chronic obstructive pulmonary disease) ??? Anxiety ??? Depression ??? Hypertension ??? Arthritis ??? GERD (gastroesophageal reflux disease) ??? Hepatitis C Past Surgical History Procedure Date ??? Clavicle surgery broken left clavicle ??? Nose surgery broken nose ??? Lung decortication 2/2 strep milari empyema Prior To Admission Medications: (Not in a hospital admission) Allergies: Allergies Allergen Reactions ??? Alendronate Sodium [...] - NIGHTMARES, CIS - NIGHTMARES Family History: Family History Problem Relation Age of Onset ??? Myocardial Infarction Father 62 ??? Coronary Artery Disease Mother ??? Coronary Artery Disease Father ??? Coronary Artery Disease Sister ??? Coronary Artery Disease Brother Social History and Habits: History Social History ??? Marital Status: Spouse Name: N/A Number of Children: 3 ??? Years of Education: N/A Occupational History ??? Not on file. Social History Main Topics ??? Smoking status: Former Smoker ??? Smokeless tobacco: Not on file ??? Alcohol Use: No A few beers a week ??? Drug Use: Not on file ??? Sexually Active: Not on file Other Topics Concern ??? Not on file Social History Narrative ??? No narrative on file Lives with her and grandkids. ETOH: <1 drink per month Smoking. Quit in 1998. (Smoked for 30 plus years) No other narcotics. Immunizations: Immunization History Administered Date(s) Administered ??? Influenza Whole 12/16/2009 Physical Exam: Last Set of Vitals and range of vitals over past 24 hours: Last value Range last 24 hrs Temperature Temp: 36.8 ??C (98.2 ??F) Temp: [36.7 ??C (98.1 ??F)-36.8 ??C (98.2 ??F)] Heart Rate Heart Rate: 81 Heart Rate: [77-90] Blood Pressure BP: 117/65 mmHg BP: (108-144)/(60-98) Respiratory Rate Resp: 19 Resp: [14-25] SpO2 SpO2: 95 % SpO2: [93 %-98 %] Physical Exam: Gen: AAOX3, NAD. Pleasant female on nasal canula. HEENT: OP clear with mmm Neck: Supple with normal ROM, No cervical LAD appreciated, JVD flat CV: RRR without murmur, rub, click or ivan Resp: Diffuse wheezes throughout. Some rhonchi in RLL. Abd: Obese, Soft, NT, ND, NABS, No HSM appreciated EXT: WWP without c/c/e, 2+ and equal dpp bl Skin: No rashes, sores or ulcers Neuro: Nonfocal, Moving all 4 extremities equally Laboratory (Last 24 Hours): Labs show a WBC of 22, (78 neutrophils, 20 bands. Hgb 10.6 plt 248. BUN 11, Cr 0.92 Trop <0.03 Microbiology: Have ordered sputum. Radiology: CXR - Impression Increased opacity in the right lower lung consistent with new pneumonia versus alveolar hemorrhage. Film and interpretation reviewed by the attending Other Studies: EKG - Reviewed. Assessment: 63 y.o. 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 Found to have a pneumonia on imaging. Plan: ?? Admit to Medicine #RLL Pneumonia -Cont Ceftriaxone 1gm QD -Cont Doxycycline 100mg BID. -have ordered a sputum CX. -CXR reviewed -Cont Nasal canula -Trend leukocytosis #COPD Will cont 60mg Prednisone and taper over the course of the week. Cont home advair Will hold spiriva & start scheduled duonebs. PRN albuetrol nebs. Will sort out why she is no longer on Bactrim #Anxiety/Depression Cont home amytriptiline, Diazepam, and Paroxitine #HTN/Cardiac Cont home asa and amlodipine #Oral Cont home nystatin and vicodyn for recent dental extraction. #Restless leg Requesting home pramipaxol ?? Physical Therapy referral ?? DVT Prophylaxis: Lovanox ?? Pneumovax and Influenza Immunizations given as needed. ?? Discussed Advanced Directives and Code Status. The patient wishesto be FULL CODE A copy of this document will be sent to the patient's Primary Care Physician and/or Referring Physician. PEDRO HOUSER MD 02/24/2013 Attending Staff Admission Documentation I certify that the patient requires: [X] inpatient care status due to iv abx for CAP [] Observation Care I have examined the patient myself on 02/24/2013 and reviewed all labs and studies personally. Please see Dr. Houser's documentation for details of the patient history of presentation and data. I have discussed, reviewed and agree with the documented history with ROS, physical findings, labs/studies, assessment and plan of care. 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 Plan as above for ceftriaxone / doxy, increased steroids and nebs for component of COPD exacerbation, and supportive care lotherwise. Monitor BG's on increased prednisone. MISAEL CARPIO MD 02/24/2013 documented in this encounter ED Notes * Keely Foster RN - 02/24/2013 4:56 PM EST Attempted to call report. Nurse unable to take at this time. * Keely Foster RN - 02/24/2013 4:25 PM EST No change in pt assessment. Pt resting w/o complaints. Awaiting bed availability. VSS. NAD. * Keely Foster RN - 02/24/2013 4:07 PM EST Medicine at BS for evaluation. Awaiting bed availability. * Keely Foster RN - 02/24/2013 2:35 PM EST Patient is resting w/o complaints. Cont to deny chest pressure at this time. CM cont to show SR w/oectopy. Resp even-unlabored. VSS. NAD. * Keely Foster RN - 02/24/2013 2:00 PM EST No change in lung sounds after duoneb. Resident at BS updating pt and with POC. Plan to admit to Medicine. Questions/concerns addressed per MD. * Niharika Latif MD - 02/24/2013 1:07 PM EST Chief Complaint Patient presents with ??? Shortness of Breath HPI Kyleigh Caballero is a 63 y/o F who presents to the ED with with shortness of breath. She reports it started on after she had 3 teeth pulled at a dentist appointment (no sedation), and the next day felt like had chills, feverish, and body shaking. She continued to have these symptoms over the weekend, in addition to cough with blood tinged sputum. Last night she got up to use the bathroom and noticed her PO2 83% on 2L (her current home O2 use). She also noted she had been using her inhaler more frequently the past 3 days, and she typically does not use it at home. She was recently admitted in November to [facility] for SOB and hemoptysis. Additionally has had strep milleri PNA requiring decortication in 02/2011. Additionally her recalls her appearing altered 3 days ago where she was searching for her glasses even though she was wearing them. Her adds he has been sick recently with a cold. Allergies Allergen Reactions ??? Alendronate Sodium CIS [...] - NIGHTMARES, CIS - NIGHTMARES Review of Systems Constitutional: Positive for chills. Lysite feverish but did not check temperature HENT: Negative for congestion, rhinorrhea, trouble swallowing and neck stiffness. Mouth feels sore Eyes: Negative for visual disturbance. Respiratory: Positive for cough, chest tightness, shortness of breath and wheezing. Cough with blood tinged sputum Cardiovascular: Negative for chest pain and palpitations. Gastrointestinal: Positive for constipation. Negative for nausea, vomiting and diarrhea. Genitourinary: Negative for dysuria and hematuria. Musculoskeletal: Negative for back pain. Skin: Negative for rash. Neurological: Negative for weakness and numbness. Psychiatric/Behavioral: Positive for confusion. Period of confusion per a few days ago Patient Vitals for the past 24 hrs: BP Temp Temp src Pulse Resp SpO2 02/24/13 1615 117/65 mmHg - - 81 19 95 % 02/24/13 1600 131/68 mmHg - - 77 19 93 % 02/24/13 1545 121/74 mmHg - - 90 18 96 % 02/24/13 1530 132/67 mmHg - - 81 17 95 % 02/24/13 1515 108/66 mmHg - - - 25 - 02/24/13 1500 131/84 mmHg - - 85 14 94 % 02/24/13 1445 112/98 mmHg - - 84 14 95 % 02/24/13 1430 144/71 mmHg - - 84 18 95 % 02/24/13 1415 129/76 mmHg - - 88 16 93 % 02/24/13 1400 110/83 mmHg 36.8 ??C (98.2 ??F) - 89 18 95 % 02/24/13 1345 123/64 mmHg - - 89 17 94 % 02/24/13 1330 125/86 mmHg - - 86 21 93 % 02/24/13 1315 127/61 mmHg - - 87 18 95 % 02/24/13 1214 139/60 mmHg 36.7 ??C (98.1 ??F) Oral 89 16 98 % Physical Exam Constitutional: She is oriented to person, place, and time. She appears distressed. Sitting up, intermittent coughing with productive sputum HENT: Head: Normocephalic and atraumatic. Dry MM, appears to have fungal infection Eyes: Conjunctivae normal are normal. Pupils are equal, round, and reactive to light. Neck: Normal range of motion. Neck supple. Cardiovascular: Normal rate and regular rhythm. No murmur heard. Pulmonary/Chest: She is in respiratory distress. She has wheezes. She exhibits tenderness. Requiring accessory muscles initially with increased respiratory effort, significant b/l inspiratory and expiratory wheezes with crackles at RLL base, tenderness to palpation of upper lateral chest wall muscles Abdominal: Soft. Bowel sounds are normal. There is tenderness. Some mild diffuse tenderness to palpation diffusely which patient says is common when she has constipation Musculoskeletal: Normal range of motion. She exhibits edema. She exhibits no tenderness. Trace lower extremity edema Neurological: She is alert and oriented to person, place, and time. No cranial nerve deficit. Coordination normal. Skin: Skin is warm and dry. No rash noted. Psychiatric: She has a normal mood and affect. Procedures/Imaging: CXR: Findings There is no pneumothorax or pleural effusion. Underlying chronic reticular changes of the lungs. There are increased ground-glass opacities within the right lung. The left lung is clear. The cardiac silhouette is unchanged. The pulmonary vasculature shows no evidence of congestion. Limited views the upper abdomen are normal. Degenerative changes are present throughout the thoracic spine. Impression: Increased opacity in the right lower lung consistent with new pneumonia versus alveolarhemorrhage. EKG: NSR, no evidence of acute ST changes MDM ED Course: -Discussed with Dr. Salomon Brandt, Prednisone 60mg -labs and CXR reviewed - evidence of pneumonia in RLL - WBC 22.84, Neut 95.4% -Vicodin 1 tablet for mouth pain, nystatin oral swish for suspected thrush - Given 1g Ceftriaxone, 100mg Doxycycline for -Discussed with medicine, accepted for admission Assessment/Plan: Kyleigh Caballero is a 63 y/o F who presents to the ED with shortness of breath. Her exam, imaging and labs supportive of community acquired pneumonia, which supports her increasing need for oxygen, blood tinged sputum, leukocytosis. Plan to admit to medicine with antibiotics for pneumonia, and closemonitoring for resolution of respiratory distress. Additionally continue nystatin given improvementof mouth pain. Anahi Simon DO Resident 02/24/13 1645 ED ATTENDING ADDENDUM: The patient was seen in conjunction with Dr. Simon, the resident physician. I have independently performed the olsen portions of the history and physical exam. I have reviewed all diagnostic studies personally including labs, imaging studies and EKG's. I have discussed the details of the case with the resident and agree with the assessment and plan as described in the resident note above unless noted otherwise below. Niharika Latif MD 02/27/13 1020 * Keely Foster RN - 02/24/2013 12:35 PM EST Presents to ED via triage in W/C, AAOx3 with c/o SOB at rest, chest wall pressure, productive coughof dark brownish-colored sputum, fever/chills. H.o COPD and multiple episodes of PNA. Denies n/v, radiating chest pain, or diaphoresis. Reports having to use inhalers more frequently. States woke up ~3 days ago and could not catch my breath. Pt is on home O2 at 2 lpm prn and states her O2sats were 83% at that time. Reports her baseline O2sats with activity are in the low 90s with activity and ~92% at rest off O2. Pt reports having to wear O2 sats more frequently. Resp even-unlabored. Lungs with scattered rhonchi bilaterally; greater on right side; wheezing bilaterally. Heart sounds audible/strong. CM shows SR w/o ectopy. Abd soft/NTTP/ND with (+) bowel sounds. Denies urinary symptoms. No lower extremity edema. MD to evaluate. documented in this encounter Miscellaneous Notes * Discharge Summary - Misael Carpio MD - 02/27/2013 11:59 AM EST Inpatient - Discharge Summary Patient Name: Kyleigh Caballero Patient Age: 63 y.o. Birthdate: 1950 Admit date: 02/24/2013 Discharge date and time: 02/27/2013 @ 1330h Attending Physician: MISAEL CARPIO MD Discharge Diagnoses (Hospital Problems) and Secondary Diagnoses (Chronic Problems): - Pneumonia, Right Lower Lobe - COPD on home O2 (2L) History of Presentation: 63 y.o. Female with a PMH of COPD (2L oxygen dependent), Possible [employer], strep milleri pneumonia s/p decortication in past, history of smoking, hepatitis C, and HTN who presents with worsening resp status and chills. Found to have a pneumonia on imaging. She states she was doing okay at home on 2L nasal o2. For the last few days she has been using her rescue inhaler more often. Monday night She noted severe SOB. Took quite a while to return to baseline. Yesterday her O2 level was dropping with activity more so then usual. For the last few days her sputum has changed from white to brownish with some red tinge. Monday night she felt feverish and had chills and rigors. Some pleuritic chest pain with coughing and a chest tightness. Her had a recent sinisitis 6 weeks ago. No other sick contacts. She denies nausea or vomiting. She does notesome GERD. She notes some constipation. She takes miralax PRN. No dysuria. No joint pain or rash. She recently had 3 teeth pulled last . Has been on vicodyn since. Follows with Dr De Leon for Pulm. Has been on 20mg of Pred since the beginning of the month. In the ED she is afebrile. Pulse 89. Normotensive. Sating 98% on 3L NC. Labs show a WBC of 22, (78 neutrophils, 20 bands. Hgb 10.6 plt 248. BUN 11, Cr 0.92 Trop <0.03 She was given 1gm Ceftriaxone, 100mg Doxycycline, 5-500 of vicodyn, 60mg of Prednisone. Nystatin [facility] [place] [facility] Course: # Right Lower Lobe Pneumonia - Patient was started on ceftriaxone and doxycycline for community acquired pneumonia, based on CXRfindings delineated below. On admit the patient had a leukocytosis of 22k and was saturating 98% at3L NC. Throughout the course of her hospital stay, her WBC's gradually trended to normal (8.5k at discharge), her O2 requirement decreased to her home oxygen requirement of 2L NC, and she remained afebrile. Sputum production also decreased through discharge, with a minimal amount of sputum producedthe morning of discharge which was less yellow and was without bloody streaks. Patient denied pleuritic pain on deep inspiration and cough on day of discharge. At discharge, she was continued on doxycycline, and her ceftriaxone was switched to cefpodoxime, both for 7 more days. # COPD - On admit, the patient's tiotropium was split into duonebs, and was started on prednisone 60mg (increased from her home dose of 20mg). Her lungs sounds gradually improved, as did her oxygen requirement. Most likely, her increased sputum production, and increased o2 requirement were more so a result of the pneumonia rather than a COPD exacerbation. The prednisone dose was titrated from 60mg back to her home 20mg during her hospital stay. Her home regimen was continued on discharge without changes. # S/p Dental extraction - The patient had a dental extraction on 02/21, and was placed on nystatin and vicodin by her dentist because of it. She was continued on these medications while inpatient, experienced no thrush, and expressed that her oral pain was well controlled with the vicodin. Important Studies and Lab Data: Labs: . Recent Labs Basename 02/27/13 0433 02/26/13 0446 02/25/13 0554 WBC 8.5 14.0* 16.8* HGB 11.3 10.4* 10.6* HCT 35.0 32.8* 32.4* PLATELET 283 269 259 Recent Labs Basename 02/27/13 0433 02/26/13 0446 02/25/13 0554 NA 137 137 135 K 3.8 4.1 4.0 CL 99 98 99 CO2 27 27 27 BUN 15 16 11 CREATININE 0.75 0.83 0.78 Studies: CXR (02/24/13) Findings There is no pneumothorax or pleural effusion. Underlying chronic reticular changes of the lungs. There are increased ground-glass opacities within the right lung. The left lung is clear. The cardiac silhouette is unchanged. The pulmonary vasculature shows no evidence of congestion. Limited views the upper abdomen are normal. Degenerative changes are present throughout the thoracic spine. Impression Increased opacity in the right lower lung consistent with new pneumonia versus alveolar hemorrhage. Sputum Cx (02/25/13) Normal Upper Respiratory Nancy Discharge Conditions/Prognosis: Stable Discharge to: Home Discharge Medications: Discharge Medication List as of 02/27/2013 1:31 PM New Meds Details doxycycline (VIBRA-TABS) 100 mg tablet Take 1 tablet by mouth 2 times daily., Oral, 2 TIMES DAILY Starting 02/27/2013, Until Discontinued, Disp-14 tablet, R- 0, Normal pneumococcal (PNEUMOVAX-23, PPSV23,) 25 mcg/0.5 mL injection Inject 0.5 mLs into the muscle once for 1 dose., Intramuscular, ONCE Starting 02/27/2013, Disp-0.5 mL, R-0, Normal cefPODoxime (VANTIN) 200 mg tablet Take 1 tablet by mouth 2 times daily., Oral, 2 TIMES DAILY Starting 02/27/2013, Until Discontinued, Disp-14 tablet, R-0, Normal Continued medications with revised dosing Details predniSONE (DELTASONE) 20 mg tablet Take 1 tablet by mouth daily., Oral, DAILY Starting 02/27/2013,Until Discontinued, Disp-30 tablet, R-2, Normal Continued medications, unchanged Details hydroCODone-acetaminophen (VICODIN) 5-500 mg per tablet Take 1 tablet by mouth every 6 hours as needed., Oral, EVERY 6 HOURS PRN, Until Discontinued, Historical Med diaZEPam (VALIUM) 5 mg tablet Take 5 mg by mouth 2 times daily., Oral, 2 TIMES DAILY, Until Discontinued, Historical Med amitriptyline (ELAVIL) 75 mg tablet Take 1 tablet by mouth nightly., Oral, NIGHTLY Starting 11/20/2012, Until Discontinued, Disp-90 tablet, R-3, Normal amlodipine (NORVASC) 10 mg tablet Take 1 tablet by mouth daily., Oral, DAILY Starting 11/20/2012, Until Discontinued, Disp-30 tablet, R-3, Normal fluticasone-salmeterol (ADVAIR DISKUS) 500-50 mcg/dose diskus inhaler Inhale 1 puff into the lungs 2 times daily., Inhalation, 2 TIMES DAILY Starting 11/20/2012, Until Discontinued, Disp-1 Inhaler, R-0, Normal levalbuterol (XOPENEX) 0.63 mg/3 mL nebulizer solution Take 3 mLs by nebulization every 4 hours as needed for Wheezing., Nebulization, EVERY 4 HOURS PRN Starting 11/20/2012, Until Discontinued, Wheezing, Disp-3 mL, R-0, Normal omeprazole (PRILOSEC) 20 mg capsule Take 1 capsule by mouth daily., Oral, DAILY Starting 11/20/2012, Until Discontinued, Disp-90 capsule, R-3, Normal PARoxetine (PAXIL) 40 mg tablet Take 1 tablet by mouth every morning., Oral, EVERY MORNING Starting11/20/2012, Until Discontinued, Disp-90 tablet, R-3, Normal simvastatin (ZOCOR) 20 mg tablet Take 1 tablet by mouth nightly., Oral, NIGHTLY Starting 11/20/2012, Until Discontinued, Disp-90 tablet, R-3, Normal tiotropium (SPIRIVA WITH HANDIHALER) 18 mcg inhalation capsule Inhale 1 capsule into the lungs daily., Inhalation, DAILY Starting 11/20/2012, Until Discontinued, Disp-90 capsule, R-0, Normal nystatin (MYCOSTATIN) 100,000 unit/mL suspension Take 5 mLs by mouth 3 times daily as needed., Oral, 3 TIMES DAILY PRN Starting 11/20/2012, Until Discontinued, Disp-60 mL, R-0, Normal ipratropium-albuterol (DUONEB) 0.5 mg-3 mg(2.5 mg base)/3 mL nebulizer solution Take 3 mLs by nebulization every 4 hours as needed., Nebulization, EVERY 4 HOURS PRN, Until Discontinued, Historical Med DICLOFENAC SODIUM/MISOPROSTOL (ARTHROTEC 50 ORAL) Oral ERGOCALCIFEROL, VITAMIN D2, (VITAMIN D ORAL) Oral ibuprofen (ADVIL;MOTRIN) 800 mg tablet 800 MG = 1 Tablet(s), PO, Three times daily, Oral Medications STOPPED sulfamethoxazole-trimethoprim (SULFAMETHOXAZOLE-TRIMETHOPRIM) 800-160 mg per tablet LORazepam (ATIVAN) 0.5 mg tablet busPIRone (BUSPAR) 15 mg tablet CIS Free Text Med - BuSpar Updated Allergies/ADRs: Allergies Allergen Reactions ??? Alendronate [...] NIGHTMARES, CIS - NIGHTMARES, CIS - NIGHTMARES Follow-up Recommendations for Providers: - Consider placing patient back on Bactrim DS for PJP prophylaxis, given her use of prednisone 20mgqd Instructions Given to Patient at Discharge: Provider Instructions Instruction after leaving the hospital Why you were hospitalized: Pneumonia Call your doctor or seek medical attention if you develop the following: Fever, increasing shortness of breath, increased sputum production Activity level: As tolerated Diet: No restrictions Driving: No restrictions Shower/Bath: No restrictions Home Oxygen therapy: Resume home oxygen at 2L NC Specific instructions related to your condition: - You were given two antibiotics (Cefpodoxime and doxycycline) to continue for 7 days after discharge. Please start taking these medications tomorrow, and continue until all pills of the antibiotics are finished. - You can resume your home COPD regimen as you were taking prior to admission. Please note that youwere recently started on prednisone 20mg Follow-Up Appointments 03/26/2013 1:15 PM Andrzej Chapman MD Pulmonology [phone] [facility] Joint Appt Nurse Res-Pulmonary [facility] [phone] [facility] Your Inpatient Doctor(s) at [facility]: Dr. Shirin Cohen Future Appointments and Orders Future Appointments: Provider: Department: Dept Phone: Center: 03/26/2013 1:15 PM Andrzej Chapman MD Pulmonology [phone] [facility] Joint Appt Nurse Res-Pulmonary [facility] [phone] [facility] Inpatient Provider Contact Information: Medicine Blue Team [phone] Electronically Signed By: LUIS F COHEN MD 02/27/2013 * Plan of Care - Rachel Vu RN - 02/27/2013 6:24 AM EST Problem: Respiratory Insufficiency (Adult, Obstetric) Goal: Respiratory Insufficiency: Effective Respiration 02 sats maintained >90% on 2-3LPM via nasal cannula. No increased 02 needs. Patient reports SOB on exertion, improved since yesterday but not yet at her baseline. Continues on PO antibiotics. Afebrile this shift. * Plan of Care - Ivania Daniel RN - 02/26/2013 6:48 PM EST Problem: Respiratory Insufficiency (Adult, Obstetric) Goal: Respiratory Insufficiency: Effective Respiration Outcome: Present (see interventions, notes) Patient requiring 3 L O2 to maintain oxygen saturations in the 90's. Gets dyspneic on exertion. Nebulizers given as ordered. Lung sounds course. * Plan of Care - Yaneth Rosario RN - 02/25/2013 4:59 PM EST Problem: Skin Integrity Impairment, Risk/Actual (Adult, Obstetric) Goal: Skin Integrity Impairment, Risk/Actual: Skin Integrity/Wound Healing Outcome: Present (see interventions, notes) Pt w/scattered ecchymosis to BUE. No open wounds visualized, will continue to monitor for breakdown. Problem: Respiratory Insufficiency (Adult, Obstetric) Goal: Respiratory Insufficiency: Effective Respiration Outcome: Present (see interventions, notes) Pt w/severe SOB w/all activity including talking. Coarse lung sounds w.scattered rhonchi. O2 @3lbncin place. Frequent cough w/minimal sputum noted, thick and blood streaked, Sputum sample to lab perorder. Scheduled nebs as ordered. Will continue to monitor resp status. * Miscellaneous - Justin, Scanning - 02/25/2013 3:29 PM EST * Initial Assessments - Sofia Hodges, PT - 02/25/2013 11:48 AM EST Physical Therapy Evaluation Patient profile: Pt. is a 63 y.o. female admitted on 02/24/2013 by Misael Becker MD withCOPD PMH: Past Medical History Diagnosis Date ??? COPD (chronic obstructive pulmonary disease) ??? Anxiety ??? Depression ??? Hypertension ??? Arthritis ??? GERD (gastroesophageal reflux disease) ??? Hepatitis C Past Surgical History Procedure Date ??? Clavicle surgery broken left clavicle ??? Nose surgery broken nose ??? Lung decortication 2/2 strep milari empyema Social History: Patient lives in [place], [place] Stairs: 5 steps with 1 railing to enter Baseline Mobility/Equipment at home: Pt does not use an assistive device at home, was on 02: 2L as needed. Pt has a walk in shower with a seat but no grab bars. Pt states she was independent with washing and dressing, helps with dishes, laundry. Pt drives Precautions/Special Considerations: SOB, droplet precautions Subjective: ???I don't really want to get up Pt c/o SOB with activity Objective: Pt seen for evaluation today. Pain: pt c/o pain head, back, chest and mouth. Vital Signs: Pt on 4L 02 Sp02:97% - 95% EOB - 97% HR: 90 97 91 Mental Status: alert, oriented to person, place, and time Musculoskeletal: Pt is (R) hand dominant ROM/Strength: WFL Sensation:no numbness or tingling Bed Mobility: Supine><Sit: without assistance Transfers: Sit><Stand: without assistance Gait: Distance:~10' Device used: no assistive device, 02 Level of assist: supervision Pt. to utilize rolling walker and supervision for ambulation with nursing. Balance: Sitting: Pt able to maintain unsupported sitting balance EOB Standing: Pt able to maintain standing balance without assistive device short distances Informed Consent: The patient agrees to and understands the PT treatment plan and goals. Education: patient has been educated on Safety and Role of therapy and verbalizes understanding. Patient status, treatment, and mobility recommendations discussed with nursing. Assessment: Decreased activity tolerance. The pt would benefit from increasing activity as pt kenna Goals: To be achieved by 03/01/13 1. Pt. to demonstrate knowledge of activity pacing/energy conservation techniques during functionalactivities. 2. Pt. to ambulate household distances independently 3. Pt. to ambulate up/down 5 step/stairs with supervision, using one railing. Plan: Pt to be seen 2-3 times per week for therapy including Stairs, Gait and Activity pacing/Energy conservation. Patient agrees with plan as stated above. Equipment needs: To be determined. Discharge Recommendations: To be determined, anticipate pt will be discharged home if activity tolerance improves sufficiently Total time spent with patient:20 minutes evaluation Total timed interventions: 0 minutes SOFIA HODGES, PT 02/25/2013 Pager: [phone] Physical Therapy Rehabilitation Department * Miscellaneous - Provider, Scanning - 02/24/2013 9:30 PM EST * Miscellaneous - Provider, Scanning - 02/24/2013 4:09 PM EST * ED Triage - Khushboo Silva RN - 02/24/2013 12:16 PM EST Patient here with shortness of breath mainly due to some congestion. Patient has COPD and is on oxygen as needed. Yesterday patient started to wear oxygen all day due to shortness of breath, Patient is now on 3L NC. Patient is alert and oriented X 3, no additional swelling in extremities. documented in this encounter Plan of Treatment Not on file documented as of this encounter Procedures Procedure Name Priority Date/Time Associated Diagnosis Comments POCT GLUCOSE Routine 02/27/2013 11:37 AM EST POCT GLUCOSE Routine 02/27/2013 6:44 AM EST DIFFERENTIAL, AUTOMATED Routine 02/27/2013 4:33 AM EST CBC (WITH DIFF) Routine 02/27/2013 4:33 AM EST BASIC METABOLIC PANEL Routine 02/27/2013 4:33 AM EST POCT GLUCOSE Routine 02/26/2013 8:04 PM EST POCT GLUCOSE Routine 02/26/2013 4:54 PM EST POCT GLUCOSE Routine 02/26/2013 11:45 AM EST POCT GLUCOSE Routine 02/26/2013 6:58 AM EST DIFFERENTIAL, AUTOMATED Routine 02/26/2013 4:46 AM EST CBC (WITH DIFF) Routine 02/26/2013 4:46 AM EST BASIC METABOLIC PANEL Routine 02/26/2013 4:46 AM EST POCT GLUCOSE Routine 02/25/2013 8:45 PM EST POCT GLUCOSE Routine 02/25/2013 4:26 PM EST POCT GLUCOSE Routine 02/25/2013 11:57 AM EST LOWER RESPIRATORY CULTURE Routine 02/25/2013 8:35 AM EST POCT GLUCOSE Routine 02/25/2013 7:33 AM EST POCT GLUCOSE Routine 02/25/2013 6:45 AM EST DIFFERENTIAL, AUTOMATED Routine 02/25/2013 5:54 AM EST CBC (WITH DIFF) Routine 02/25/2013 5:54 AM EST HEMOGLOBIN A1C Routine 02/25/2013 5:54 AM EST BASIC METABOLIC PANEL Routine 02/25/2013 5:54 AM EST POCT GLUCOSE Routine 02/24/2013 11:18 PM EST POCT GLUCOSE Routine 02/24/2013 10:07 PM EST XR CHEST PA AND LATERAL STAT 02/24/2013 1:59 PM EST EKG 12-LEAD STAT 02/24/2013 1:27 PM EST DIFFERENTIAL, MANUAL Routine 02/24/2013 1:05 PM EST GOLD TUBE HOLD Routine 02/24/2013 1:05 PM EST BLUE TUBE HOLD Routine 02/24/2013 1:05 PM EST CARDIAC ENZYMES ([facility]) Routine 02/24/2013 1:05 PM EST CREATININE Routine 02/24/2013 1:05 PM EST CBC (WITH DIFF) Routine 02/24/2013 1:05 PM EST BUN Routine 02/24/2013 1:05 PM EST GLUCOSE Routine 02/24/2013 1:05 PM EST ELECTROLYTES PANEL Routine 02/24/2013 1: 05 PM EST documented in this encounter Results * POCT Glucose (02/27/2013 11:37 AM EST) Glucose, POC 184 60 - 199 mg/dL [facility] Comment: Supplemental ranges: <110 mg/dL before meals <200 mg/dL all other times of the day Blood specimen (specimen) 02/27/2013 11:37 AM EST 02/27/2013 11:37 AM EST Misael Carpio MD POINT OF CARE TEST ORDERABLES Performing Organization Address [facility] Co de Phone Number [facility] * POCT Glucose (02/27/2013 6:44 AM EST) Glucose, POC 94 60 - 199 mg/dL [facility] Comment: Supplemental ranges: <110 mg/dL before meals <200 mg/dL all other times of the day Blood specimen (specimen) 02/27/2013 6:44 AM EST 02/27/2013 6:44 AM EST Misael Carpio MD POINT OF CARE TEST ORDERABLES Performing Organization Address [facility] Co de Phone Number [facility] * (ABNORMAL) Differential, Automated (02/27/2013 4:33 AM EST) Neutrophil % 68.3 34.0 - 71.0 % [facility] Neutrophil Absolute 5.83 1.50 - 6.30 x10(3)/mc L [facility] Lymph % 20.4 19.0 - 53.0 % [facility] Lymphocytes Abs 1.7 1.0 - 3.6 x10(3)/mc L [facility] Monocyte % 9.0 4.0 - 13.0 % [facility] Monocyte Abs 0.8 0.2 - 1.0 x10(3)/mc L [facility] Eos % 0.8 0.0 - 7.0 % [facility] Eosinophils Abs 0.1 0.0 - 0.5 x10(3)/mc L [facility]ILL[facility] Basophil % 0.1 0.0 - 2.0 % [facility] Baso Absolute 0.0 0.0 - 0.2 x10(3)/mc L [facility]ILLEN[facility] Immature Gran % 1.40(H) 0.00 - 0.66 % [facility] Comment: Immature granulocytes(IG's)percentage and absolute count will include metamyelocytes, myelocytes, and promyelocytes. Blood smears from CBCs yielding IG's will be scanned manually for concordance. If this scan disagrees with the automated IG or if promyelocytes are noted, a manual differential will be performed. Immature Gran Absolute 0.12(H) 0.00 - 0.05 x10(3)/mc L [facility] Blood specimen (specimen) 02/27/2013 4:33 AM EST 02/27/2013 4:42 AM EST Niharika Latif MD HEMATOLOGY ORDERABL ES [facility] * Basic Metabolic Panel (non-fasting) (02/27/2013 4:33 AM EST) Glucose 94 60 - 199 mg/dL [facility] Comment:Diabetes: >=200 mg/d L plus symptoms Blood Urea Nitrogen 15 8 - 18 mg/dL [facility] Creatinine 0.75 0.70 - 1.20 mg/dL [facility] MILLENNI[facility] Comment: Please note that the pediatric reference intervals supplied above were not validated at [facility]. Results from pediatric patients should be interpreted [...] CHEMISTRY ORDERABLE S [facility]UT[facility] * (ABNORMAL) CBC (with Diff) (02/27/2013 4:33 AM EST) White Blood Cell 8.5 4.0 - 10.0 x10(3)/mc L [facility] MILLENNIUM Red Blood Cell 3.85(L) 3.93 - 5.22 x10(6)/mc L [facility] Hemoglobin 11.3 11.2 - 15.7 gm/dL [facility] Hematocrit 35.0 34.0 - 45.0 % [facility] Mean Cell Volume 90.9 79.0 - 94.0 fL [facility] Mean Cell Hemoglobin 29.4 26.6 - 32.2 pg [facility] Mean Cell Hemoglobin Concentration 32.3 32.0 - 36.5 gm/dL [facility] Platelet 283 145 - 370 x10(3)/mc L [facility] RDW Standard Deviation 44.6 35.0 - 46.0 fL [facility] RDW coefficient of variation 13.5 10.9 - 14.4 % [facility] Mean Platelet Volume 8.7(L) 9.0 - 12.0 fL [facility] Blood specimen (specimen) 02/27/2013 4:33 AM EST 02/27/2013 4:42 AM EST Narrative Resulting Agency Comment Spec In Lab Niharika Latif MD HEMATOLOGY ORDERABL ES Performing Organization Address City/[facility]/ZIP Co de Phone Number [facility] * POCT Glucose (02/26/2013 8:04 PM EST) Glucose, POC 117 60 - 199 mg/dL [facility] Comment: Supplemental ranges: <110 mg/dL before meals <200 mg/dL all other times of the day Blood specimen (specimen) 02/26/2013 8:04 PM EST 02/26/2013 8:04 PM EST Misael Carpio MD POINT OF CARE TEST ORDERABLES [facility] * (ABNORMAL) POCT Glucose (02/26/2013 4:54 PM EST) Glucose, POC 253(H) 60 - 199 mg/dL [facility] Comment: Supplemental ranges: <110 mg/dL before meals <200 mg/dL all other times of the day Blood specimen (specimen) 02/26/2013 4:54 PM EST 02/26/2013 4:54 PM EST Misael Carpio MD POINT OF CARE TEST ORDERABLES Performing Organization Address [facility] de Phone Number [facility] * (ABNORMAL) POCT Glucose (02/26/2013 11:45 AM EST) Glucose, POC 206(H) 60 - 199 mg/dL [facility] Comment: Supplemental ranges: <110 mg/dL before meals <200 mg/dL all other times of the day Blood specimen (specimen) 02/26/2013 11:45 AM EST 02/26/2013 11:45 AM EST Misael Carpio MD POINT OF CARE TEST ORDERABLES Performing Organization Address [facility] Phone Number [facility] * POCT Glucose (02/26/2013 6:58 AM EST) Glucose, POC 114 60 - 199 mg/dL [facility] Comment: Supplemental ranges: <110 mg/dL before meals <200 mg/dL all other times of the day Blood specimen (specimen) 02/26/2013 6:58 AM EST 02/26/2013 6:58 AM EST Misael Carpio MD POINT OF CARE TEST ORDERABLES Performing Organization Address [facility] Phone Number [facility] * (ABNORMAL) Differential, Automated (02/26/2013 4:46 AM EST) Neutrophil % 82.3(H) 34.0 - 71.0 % [facility] Neutrophil Absolute 11.54(H) 1.50 - 6.30 x10(3)/mc L [facility]ILL[facility]NI[facility] Lymph % 10.7(L) 19.0 - 53.0 % [facility] Lymphocytes Abs 1.5 1.0 - 3.6 x10(3)/mc L [facility] Monocyte % 6.1 4.0 - 13.0 % [facility]ILL[facility]NI[facility] Monocyte Abs 0.8 0.2 - 1.0 x10(3)/mc L [facility] Eos % 0.4 0.0 - 7.0 % [facility] Eosinophils Abs 0.1 0.0 - 0.5 x10(3)/mc L [facility] Basophil % 0.1 0.0 - 2.0 % [facility] Baso Absolute 0.0 0.0 - 0.2 x10(3)/mc L [facility] Immature Gran % 0.40 0.00 - 0.66 % [facility] Comment: Immature granulocytes(IG's)percentage and absolute count will include metamyelocytes, myelocytes, and promyelocytes. Blood smears from CBCs yielding IG's will be scanned manually for concordance. If this scan disagrees with the automated IG or if promyelocytes are noted, a manual differential will be performed. Immature Gran Absolute 0.06(H) 0.00 - 0.05 x10(3)/mc L [facility] MILLENNIUM Blood specimen (specimen) 02/26/2013 4:46 AM EST 02/26/2013 5:01 AM EST Niharika Latif MD HEMATOLOGY ORDERABL ES [facility] * Basic Metabolic Panel (non-fasting) (02/26/2013 4:46 AM EST) Glucose 105 60 - 199 mg/dL [facility] Comment:Diabetes: >=200 mg/d L plus symptoms Blood Urea Nitrogen 16 8 - 18 mg/dL [facility] Creatinine 0.83 0.70 - 1.20 mg/dL [facility] Comment: Please note that the pediatric reference intervals supplied above were not validated at [facility]. Results from pediatric patients should be interpreted in conjunction to the patient's age, height and muscle mass. Sodium 137 135 - 145 mmol/L [facility] Potassium 4.1 3.5 - 5.0 mmol/L [facility] Comment: Please note: ??Patients with WBC >100,000 may have falsely elevated Potassium levels. ??For accurate Potassium quantification in these patients send serum separator tube (gold top) for subsequent determinations. ??Contact the Clinical Chemistry Laboratory if there are any questions. Chloride 98 98 - 107 mmol/L [facility] Carbon Dioxide 27 22 - 31 mmol/L [facility]ILL[facility] Anion Gap 12 5 - 15 mmol/L [facility] Calcium 9.2 8.5 - 10.5 mg/dL [facility] MILLENNIUM Est [...] internet browser. http://www.nkdep.nih.gov/lab-evaluation.shtml http://www.kidney.org/professionals/ Blood specimen (specimen) 02/26/2013 4:46 AM EST 02/26/2013 5:01 AM EST Narrative Resulting Agency Comment Spec In Lab Niharika Latif MD CHEMISTRY ORDERABLE S [facility] * (ABNORMAL) CBC (with Diff) (02/26/2013 4:46 AM EST) White Blood Cell 14.0(H) 4.0 - 10.0 x10(3)/mc L [facility]ILL[facility]NI[facility] Red Blood Cell 3.57(L) 3.93 - 5.22 x10(6)/mc L [facility] MILLENNIUM Hemoglobin 10.4(L) 11.2 - 15.7 gm/dL [facility]NI[facility] Hematocrit 32.8(L) 34.0 - 45.0 % [facility]ILL[facility]NI[facility] Mean Cell Volume 91.9 79.0 - 94.0 fL [facility]ILL[facility]NI[facility] Mean Cell Hemoglobin 29.1 26.6 - 32.2 pg [facility] Mean Cell Hemoglobin Concentration 31.7(L) 32.0 - 36.5 gm/dL [facility] MILLENNI[facility] Platelet 269 145 - 370 x10(3)/mc L [facility] RDW Standard Deviation 46.1(H) 35.0 - 46.0 fL [facility] RDW coefficient of variation 13.6 10.9 - 14.4 % [facility] Mean Platelet Volume 9.0 9.0 - 12.0 fL [facility] Blood specimen (specimen) 02/26/2013 4:46 AM EST 02/26/2013 5:01 AM EST Narrative Resulting Agency Comment Spec In Lab Niharika Latif MD HEMATOLOGY ORDERABL ES [facility] * POCT Glucose (02/25/2013 8:45 PM EST) Glucose, POC 146 60 - 199 mg/dL [facility] Comment: Supplemental ranges: <110 mg/dL before meals <200 mg/dL all other times of the day Blood specimen (specimen) 02/25/2013 8:45 PM EST 02/25/2013 8:45 PM EST Misael Carpio MD POINT OF CARE TEST ORDERABLES Performing Organization Address [facility] Co de Phone Number [facility] * (ABNORMAL) POCT Glucose (02/25/2013 4:26 PM EST) Glucose, POC 240(H) 60 - 199 mg/dL [facility] Comment: Supplemental ranges: <110 mg/dL before meals <200 mg/dL all other times of the day Blood specimen (specimen) 02/25/2013 4:26 PM EST 02/25/2013 4:26 PM EST Misael Carpio MD POINT OF CARE TEST ORDERABLES Performing Organization Address [facility] Co de Phone Number [facility] * POCT Glucose (02/25/2013 11:57 AM EST) Glucose, POC 167 60 - 199 mg/dL [facility] Comment: Supplemental ranges: <110 mg/dL before meals <200 mg/dL all other times of the day Blood specimen (specimen) 02/25/2013 11:57 AM EST 02/25/2013 11:57 AM EST Misael Carpio MD POINT OF CARE TEST ORDERABLES Performing Organization Address City/State/ZIP [facility] Phone Number [facility] * Lower Respiratory Culture Sputum Expectorated (02/25/2013 8:35 AM EST) Lower Respiratory Culture ? Patient Name: KYLEIGH CABALLERO ? Ordered By: NIHARIKA LATIF ? MR#: [id number] ?LOC: ??1EST ? /Sex: ??1950 (63 years), ? Female ? PROCEDURE: Lower Respiratory Culture ?SOURCE: Sputum ? COLLECTED: 02/25/2013 08:35 ? STARTED: 02/25/2013 08:56 ? STAINS / PREPARATIONS ? Gram Stain Report ? Verified:2012 11:27 ? Moderate White Blood Cells seen ? Few squamous epithelial cells seen ? Few mixed bacterial morphotypes suggestive of normal upper respiratory ? nancy ? FINAL REPORT ? Final Report ? Verified:2012 08:54 ? Moderate mixed bacterial morphotypes suggestive of normal upper respiratory ? nancy ? PRELIMINARY REPORT ? Preliminary Report ? Verified:2012 11:34 ? Moderate mixed bacterial morphotypes suggestive of normal upper respiratory ? nancy ? [facility] Sputum specimen (specimen) 02/25/2013 8:35 AM EST 02/25/2013 8:56 AM EST Narrative Resulting Agency Comment Spec In Lab Niharika Latif MD MICROBIOLOGY - GENE RAL ORDERABLES Performing Organization Address [facility] de Phone Number [facility] * POCT Glucose (02/25/2013 7:33 AM EST) Glucose, POC 152 60 - 199 mg/dL [facility] Comment: Supplemental ranges: <110 mg/dL before meals <200 mg/dL all other times of the day Blood specimen (specimen) 02/25/2013 7:33 AM EST 02/25/2013 7:33 AM EST Misael Carpio MD POINT OF CARE TEST ORDERABLES Performing Organization Address [facility] Phone Number [facility] * POCT Glucose (02/25/2013 6:45 AM EST) Glucose, POC 126 60 - 199 mg/dL [facility] Comment: Supplemental ranges: <110 mg/dL before meals <200 mg/dL all other times of the day Blood specimen (specimen) 02/25/2013 6:45 AM EST 02/25/2013 6:45 AM EST Misael Carpio MD POINT OF CARE TEST ORDERABLES Performing Organization Address [facility] Phone Number [facility] * (ABNORMAL) Differential, Automated (02/25/2013 5:54 AM EST) Neutrophil % 89.9(H) 34.0 - 71.0 % [facility] Neutrophil Absolute 15.12(H) 1.50 - 6.30 x10(3)/mc L [facility] MILLENNIUM Lymph % 6.1(L) 19.0 - 53.0 % [facility]ILLENNIUM Lymphocytes Abs 1.0 1.0 - 3.6 x10(3)/mc L [facility] MILLENNIUM Monocyte % 3.4(L) 4.0 - 13.0 % [facility]ILLENNI[facility] Monocyte Abs 0.6 0.2 - 1.0 x10(3)/mc L [facility]ILLENNIUM Eos % 0.1 0.0 - 7.0 % [facility]ILLENNI[facility] Eosinophils Abs 0.0 0.0 - 0.5 x10(3)/mc L [facility] MILLENNIUM Basophil % 0.1 0.0 - 2.0 % [facility]ILLENNI[facility] Baso Absolute 0.0 0.0 - 0.2 x10(3)/mc L [facility] MILLENNIUM Immature Gran % 0.40 0.00 - 0.66 % [facility]ILL[facility] Comment: Immature granulocytes(IG's)percentage and absolute count will include metamyelocytes, myelocytes, and promyelocytes. Blood smears from CBCs yielding IG's will be scanned manually for concordance. If this scan disagrees with the automated IG or if promyelocytes are noted, a manual differential will be performed. Immature Gran Absolute 0.06(H) 0.00 - 0.05 x10(3)/mc L [facility]ILL[facility] Blood specimen (specimen) 02/25/2013 5:54 AM EST 02/25/2013 6:24 AM EST Niharika Latif MD HEMATOLOGY ORDERABL ES [facility] * Hemoglobin A1c (02/25/2013 5:54 AM EST) Hemoglobin A1c 6.0 4.3 - 6.1 % [facility] Comment: The [place] [employer] (ADA) has stated that HbA1c values >or= 6.5% are consistent with the diagnosis of diabetes mellitus. In the absence of hyperglycemia (i.e. plasma glucose > 200 mg/dL) or classic symptoms of hyperglycemia a repeat measurement of HbA1c should be performed on a separate sample to confirm the diagnosis. The ADA also considers an HbA1c value between 5.7% and 6.4% to be consistent with an increased risk of diabetes (prediabetes). Patients with an HbA1c value in this range should be counseled about their increased risk of progressing to diabetes. Reference: Position Statement: Standards of Medical Care in Diabetes ? 2013. Diabetes Care 2013:36;suppl 1:S11-S66. Estimated Average Glucose 126 mg/dL [facility] Comment: eAG equivalents for HbA1c percentages: HbA1c(%) ?eAG(mg/dL) 6.0 ?126 6.5 ?140 7.0 ?154 7.5 ?169 8.0 ?183 8.5 ?197 9.0 ?212 9.5 ?226 10.0 ? 240 Limitations: The eAG calculation has not been validated on women, individuals below 18 years old and above 70 years old, and individuals with hemoglobinopathies. Additional resources are available on the ADA website: ??http://professional.diabetes.org/glucosecalculator.aspx Isra YADAV, Della J, Justyn R, et al. ??Translating the A1C assay into estimated average glucose values. ??Diabetes Care 2008:31(8):0083-5277. Blood specimen (specimen) 02/25/2013 5:54 AM EST 02/25/2013 6:24 AM EST Narrative Resulting Agency Comment Spec In Lab Misael Carpio MD CHEMISTRY ORDERABL ES [facility] * Basic Metabolic Panel (non-fasting) (02/25/2013 5:54 AM EST) [facility] Glucose 128 60 - 199 mg/dL [facility] MILLENNIUM Comment:Diabetes: >=200 mg/d L plus symptoms Blood Urea Nitrogen 11 8 - 18 mg/dL [facility] MILLENNIUM Creatinine 0.78 0.70 - 1.20 mg/dL [facility] MILLENNI[facility] Comment: Please note that the pediatric reference intervals supplied above were not validated at [facility]. Results from pediatric patients should be interpreted [...] internet browser. http://www.nkdep.nih.gov/lab-evaluation.shtml http://www.kidney.org/professionals/ Blood specimen (specimen) 02/25/2013 5:54 AM EST 02/25/2013 6:24 AM EST Narrative Resulting Agency Comment Spec In Lab Niharika Latif MD CHEMISTRY ORDERABLE S [facility] CrushBlvdBAN[facility] * (ABNORMAL) CBC (with Diff) (02/25/2013 5:54 AM EST) White Blood Cell 16.8(H) 4.0 - 10.0 x10(3)/mc L [facility] MILLENNIUM Red Blood Cell 3.56(L) 3.93 - 5.22 x10(6)/mc L [facility] Hemoglobin 10.6(L) 11.2 - 15.7 gm/dL [facility]ILLEN[facility] Hematocrit 32.4(L) 34.0 - 45.0 % [facility]ILLENNI[facility] Mean Cell Volume 91.0 79.0 - 94.0 fL [facility]ILLENNI[facility] Mean Cell Hemoglobin 29.8 26.6 - 32.2 pg [facility] Mean Cell Hemoglobin Concentration 32.7 32.0 - 36.5 gm/dL [facility] MILLEN[facility] Platelet 259 145 - 370 x10(3)/mc L [facility]ILLEN[facility] RDW Standard Deviation 45.8 35.0 - 46.0 fL [facility]ILL[facility] RDW coefficient of variation 13.6 10.9 - 14.4 % [facility] MILLENNI[facility] Mean Platelet Volume 8.9(L) 9.0 - 12.0 fL [facility] MILLENNIUM Blood specimen (specimen) 02/25/2013 5:54 AM EST 02/25/2013 6:24 AM EST Narrative Resulting Agency Comment Spec In Lab Niharika Latif MD HEMATOLOGY ORDERABL ES [facility] * (ABNORMAL) POCT Glucose (02/24/2013 11:18 PM EST) Pathologist [facility] Glucose, POC 201(H) 60 - 199 mg/dL [facility] Comment: Supplemental ranges: <110 mg/dL before meals <200 mg/dL all other times of the day Blood specimen (specimen) 02/24/2013 11:18 PM EST 02/24/2013 11:18 PM EST Misael Carpio MD POINT OF CARE TEST ORDERABLES [facility] * (ABNORMAL) POCT Glucose (02/24/2013 10:07 PM EST) Glucose, POC 253(H) 60 - 199 mg/dL [facility] Comment: Supplemental ranges: <110 mg/dL before meals <200 mg/dL all other times of the day Blood specimen (specimen) 02/24/2013 10:07 PM EST 02/24/2013 10:07 PM EST Misael Carpio MD POINT OF CARE TEST ORDERABLES [facility] * XR chest routine PA & lateral (02/24/2013 1:59 PM EST) Anatomical Region Laterality Modality Chest N/A Radiographic Nan ging 02/24/2013 1:59 PM EST Narrative 02/24/2013 2:20 PM EST Examination Chest x-ray 2 views ?? Clinical History Shortness of breath ?? Comparison Chest radiograph on 12/04/[address] on 01/15/2013. Technique Standing PA and lateral chest radiographs. Findings There is no pneumothorax or pleural effusion. ??Underlying chronic reticular changes of the lungs. ??There are increased ground-glass opacities within the right lung. ??The left lung is clear. ??The cardiac silhouette is unchanged. ??The pulmonary vasculature shows no evidence of congestion. Limited views the upper abdomen are normal. Degenerative changes are present throughout the thoracic spine. Impression Increased opacity in the right lower lung consistent with new pneumonia versus alveolar hemorrhage. Film and interpretation reviewed by the attending Procedure Note Alda Capellan MD - 02/24/2013 Examination Chest x-ray 2 views Clinical History Shortness of breath Comparison Chest radiograph on 12/04/[address] on 01/15/2013. Technique Standing PA and lateral chest radiographs. Findings There is no pneumothorax or pleural effusion. Underlying chronicreticular changes of the lungs. There are increased ground-glass opacities withinthe right lung. The left lung is clear. The cardiac silhouette is unchanged.The pulmonary vasculature shows no evidence of congestion. Limited views the upper abdomen are normal. Degenerative changes are present throughout the thoracic spine. Impression Increased opacity in the right lower lung consistent with new pneumoniaversus alveolar hemorrhage. Film and interpretation reviewed by the attending Cindy Ackerman MD IMG DX ORDERABLES * EKG 12 Lead (02/24/2013 1:27 PM EST) Ventricular rate 82 BPM MUSE SYSTEM Atrial Rate 82 BPM MUSE SYSTEM P-R Interval 156 ms MUSE SYSTEM QRS Duration 88 ms MUSE SYSTEM Q-T Interval 364 ms MUSE SYSTEM QTC Calculated (Bezet) 425 ms MUSE SYSTEM Calculated P [place] 11 degrees MUSE SYSTEM Calculated R [place] -4 degrees MUSE SYSTEM Calculated T [place] 9 degrees MUSE SYSTEM INTERPRETATION Sinus rhythm RSR' pattern in V1 Poor data quality limits interpretation Otherwise normal ECG When compared with ECG of 15-NOV-2012 19:48, No significant change was found I personally reviewed the tracing and edited the fellows interpretation Confirmed by fellow MD Cara, Sanjeev Scanlon ([id number]) on 02/25/2013 11:08:01 AM Confirmed by MD CONCHITA, ALISA ([id number]) on 02/25/2013 8:26:25 PM MUSE SYSTEM 02/24/2013 1:27 PM EST 02/25/2013 8:26 PM EST Cindy Ackerman MD ECG ORDERABLES MUSE SYSTEM * (ABNORMAL) Differential, Manual (02/24/2013 1:05 PM EST) Segmented Neutrophils Manual 78(H) 34 - 71 % [facility] Band % 20(H) 0 - 12 % [facility] Lymphocyte Manual 1(L) 19 - 53 % [facility] Monocyte Manual 1(L) 4 - 13 % [facility] ER [facility] Segs Absolute Manual 17.8(H) 1.5 - 6.3 x10(3)/mc L [facility] Band Abs 4.6(H) 0.2 - 0.6 x10(3)/mc L [facility] ANC 22.38(H) 1.50 - 6.30 x10(3)/mc L [facility] Lymph Absolute Manual 0.2(L) 1.0 - 3.6 x10(3)/mc L [facility] Monocyte Absolute Manual 0.2 0.2 - 1.0 x10(3)/mc L [facility] Total Cells Ct 100 CERNE R MILLENNIUM Plat estimate Normal [facility] RBC Morphology Normal [facility]NE R [facility] Dohle Bodies Present [facility] Blood specimen (specimen) 02/24/2013 1:05 PM EST 02/24/2013 6:48 PM EST Narrative Resulting Agency Comment Spec In Lab Niharika Latif MD HEMATOLOGY ORDERABL ES Performing Organization Address [facility] Co de Phone Number [facility] * Creatinine (02/24/2013 1:05 PM EST) Creatinine 0.92 0.70 - 1.20 mg/dL [facility] Comment: Please note that the pediatric reference intervals supplied above were not validated at [facility]. Results from pediatric patients should be interpreted in conjunction to the patient's age, height and muscle mass. Est Glomerular Filtration Rate >60 >=60 [facility]UM Comment: This estimated GFR (eGFR) value [...] internet browser. http://www.nkdep.nih.gov/lab-evaluation.shtml http://www.kidney.org/professionals/ Blood specimen (specimen) 02/24/2013 1:05 PM EST 02/24/2013 6:47 PM EST Narrative Resulting Agency Comment Spec In Lab Niharika Latif MD CHEMISTRY ORDERABLE S Performing Organization Address [facility] Co de Phone Number [facility] * Cardiac Enzymes (02/24/2013 1:05 PM EST) Troponin-T <0.03 <=0.03 ng/mL [facility] Comment: 0.03 ng/mL: Represents the 99th percentile upper reference limit for normals. >0.03 ng/mL: Elevated cardiac troponin T level indicative of myocardial damage. Diagnosis of acute, evolving or recent NE requires a typical rise and gradual fall of cTnT with at least ONE of the following: a) Ischemic symptoms b) Development of pathologic Q waves on the ECG c) ECG changes indicative of eschemia (S-T segment elevation/depression) d) Coronary artery intervention Serial bloods should be obtained for testing on admission, at 6 to 9 hrs and again at 12 to 24 hrs if earlier samples are negative and the clinical index of suspicion is high. Reference: [Myocardial infarction redefined? a consensus document of the Joint Society of Cardiology/[place] [employer] of Cardiology Committee for the redefinition of myocardial infarction. ??Journal of the [employer] 2000; 36: 959-969] Creatine Kinase 90 0 - 160 unit/L CERNER CrushBlvdENNIUM Blood specimen (specimen) 02/24/2013 1:05 PM EST 02/24/2013 6:47 PM EST Narrative Resulting Agency Comment Spec In Lab Niharika Latif MD CHEMISTRY ORDERABLE S Performing Organization Address [facility] de Phone Number CERPayment pluginIUM * (ABNORMAL) Glucose, random (02/24/2013 1:05 PM EST) Glucose 275(H) 60 - 199 mg/dL CERNER MILLENNIUM Comment:Diabetes: >=200 mg/d L plus symptoms Blood specimen (specimen) 02/24/2013 1:05 PM EST 02/24/2013 6:47 PM EST Narrative Resulting Agency Comment Spec In Lab Niharika Latif MD CHEMISTRY ORDERABLE S Performing Organization Address [facility] Co de Phone Number CERPayment pluginIUM * (ABNORMAL) Electrolytes panel (02/24/2013 1:05 PM EST) Sodium 126(L) 135 - 145 mmol/L CERNER MILLENNIUM Potassium 4.2 3.5 - 5.0 mmol/L CERNER MILLENNIUM Comment: Please note: ??Patients with WBC >100,000 may have falsely elevated Potassium levels. ??For accurate Potassium quantification in these patients send serum separator tube (gold top) for subsequent determinations. ??Contact the Clinical Chemistry Laboratory if there are any questions. Chloride 90(L) 98 - 107 mmol/L CERNER MILLENNIUM Carbon Dioxide 24 22 - 31 mmol/L CERNER MILLENNIUM Anion Gap 12 5 - 15 mmol/L CERNER MILLENNIUM Blood specimen (specimen) 02/24/2013 1:05 PM EST 02/24/2013 6:47 PM EST Narrative Resulting Agency Comment Spec In Lab Niharika Latif MD CHEMISTRY ORDERABLE S Performing Organization Address [facility] de Phone Number TEMITOPE SHANEENNIUM * Gold Tube HOLD (02/24/2013 1:05 PM EST) Gold Hold Sample in lab. CERNER MILLENNIUM Blood specimen (specimen) 02/24/2013 1:05 PM EST 02/24/2013 6:47 PM EST Niharika Latif MD CHEMISTRY ORDERABLE S Performing Organization Address [facility] de Phone Number CERCHAPINCITO SHANEENNIUM * Blue Tube HOLD (02/24/2013 1:05 PM EST) Blue Hold Sample in lab. CERCHAPINCITO SHANEENNIUM Blood specimen (specimen) 02/24/2013 1:05 PM EST 02/24/2013 6:47 PM EST Niharika Latif MD HEMATOLOGY ORDERABL ES Performing Organization Address [facility] de Phone Number CERCHAPINCITO SHANEENNIUM * (ABNORMAL) CBC (with Diff) (02/24/2013 1:05 PM EST) White Blood Cell 22.8(H) 4.0 - 10.0 x10(3)/mc L CERNER MILLENNIUM Red Blood Cell 3.60(L) 3.93 - 5.22 x10(6)/mc L CERNER MILLENNIUM Hemoglobin 10.6(L) 11.2 - 15.7 gm/dL CERNER MILLENNIUM Hematocrit 32.7(L) 34.0 - 45.0 % CERNER MILLENNIUM Mean Cell Volume 90.8 79.0 - 94.0 fL CERNER MILLENNIUM Mean Cell Hemoglobin 29.4 26.6 - 32.2 pg CERNER MILLENNIUM Mean Cell Hemoglobin Concentration 32.4 32.0 - 36.5 gm/dL CERNER MILLENNIUM Platelet 248 145 - 370 x10(3)/mc L CERNER MILLENNIUM RDW Standard Deviation 44.7 35.0 - 46.0 fL CERNER MILLENNIUM RDW coefficient of variation 13.5 10.9 - 14.4 % CERNER MILLENNIUM Mean Platelet Volume 9.0 9.0 - 12.0 fL CERNER MILLENNIUM Blood specimen (specimen) 02/24/2013 1:05 PM EST 02/24/2013 6:48 PM EST Narrative Resulting Agency Comment Spec In Lab Niharika Latif MD HEMATOLOGY ORDERABL ES Performing Organization Address [facility] Co de Phone Number TEMITOPE GAUTAM * BUN (02/24/2013 1:05 PM EST) Blood Urea Nitrogen 11 8 - 18 mg/dL TEMITOPE SHANEENNIUM Blood specimen (specimen) 02/24/2013 1:05 PM EST 02/24/2013 6:47 PM EST Narrative Resulting Agency Comment Spec In Lab Niharika Latif MD CHEMISTRY ORDERABLE S Performing Organization Address [facility] Co de Phone Number TEMITOPE GAUTAM documented in this encounter Visit Diagnoses Diagnosis Cryptogenic organizing pneumonia Other specified alveolar and parietoalveolar pneumonopathies Pneumonia Pneumonia, organism unspecified documented in this encounter Administered Medications Inactive Administered Medications - up to 3 most recent administrations Medication Order MAR Action Action Date Dose Rate Site acetaminophen (TYLENOL) tablet 650 mg 650 mg, Oral, EVERY 6 HOURS PRN, Starting on 02/24/13 at 1744, Until 02/27/13 at 1612, Pain, Fever, Administer for temperature greater than or equal to 38.2 degrees celsius. Maximum daily dose of acetaminophen from all sources not to exceed 4,000 mg., Routine Given 02/27/2013 9:33 AM EST 650 mg amitriptyline (ELAVIL) tablet 75 mg 75 mg, Oral, NIGHTLY, First dose on Mon02/24/13 at 2100, Until Discontinued, Routine Given 02/26/2013 8:53 PM EST 75 mg Given 02/25/2013 9:00 PM EST 75 mg Given 02/24/2013 8:44 PM EST 75 mg amlodipine (NORVASC) tablet 10 mg 10 mg, Oral, DAILY, First dose on Mon02/25/13 at 0900, Until Discontinued, Routine Given 02/27/2013 9:19 AM EST 10 mg Given 02/26/2013 9:00 AM EST 10 mg Given 02/25/2013 8:46 AM EST 10 mg bisacodyl (DULCOLAX) suppository 10 mg 10 mg, Rectal, ONCE, 1 dose, On Mon02/26/13 at 1330, Routine Given 02/26/2013 1:30 PM EST 10 mg bisacodyl (DULCOLAX) suppository 10 mg 10 mg, Rectal, ONCE, 1 dose, On Mon02/26/13 at 1500, Routine Given 02/26/2013 4:30 PM EST 10 mg cefTRIaxone (ROCEPHIN) 1g in dextrose 5% 50mL 1 g, Intravenous, EVERY 24 HOURS, First dose on Mon02/25/13 at 1400, Until Discontinued, Administer over 30 Minutes, Indication for (Active or Suspected): for Pneumonia (Community) Given 02/27/2013 12:14 PM EST 1 g 100 mL/hr Given 02/26/2013 2:00 PM EST 1 g 100 mL/hr Given 02/25/2013 2:04 PM EST 1 g 100 mL/hr cefTRIaxone (ROCEPHIN) injection 1,000 mg 1,000 mg (1 g), Intravenous, ONCE, 1 dose, On Mon02/24/13 at 1430, STAT, Indication for (Active or Suspected): for Pneumonia (Community) Given 02/24/2013 2:20 PM EST 1,000 mg diaZEPam (VALIUM) tablet 5 mg 5 mg, Oral, 2 TIMES DAILY, First dose on Mon02/25/13 at 1100, Until Discontinued, Routine Given 02/27/2013 9:20 AM EST 5 mg Given 02/26/2013 5:13 PM EST 5 mg Given 02/26/2013 9:00 AM EST 5 mg diclofenac (VOLTAREN) EC tablet 75 mg 75 mg, Oral, ONCE, 1 dose, On 02/24/13 at 2130, Routine Given 02/24/2013 8:49 PM EST 75 mg diclofenac (VOLTAREN) EC tablet 75 mg 75 mg, Oral, 2 TIMES DAILY, First dose (after last reorder) on Mon02/25/13 at 1430, Until Discontinued, Routine Given 02/27/2013 11:08 AM EST 75 mg Given 02/26/2013 5:11 PM EST 75 mg Given 02/26/2013 9:00 AM EST 75 mg docusate sodium (COLACE) capsule 100 mg 100 mg, Oral, 2 TIMES DAILY, First dose on Mon02/25/13 at 0900, Until Discontinued, Routine Given 02/27/2013 9:20 AM EST 100 mg Given 02/26/2013 8:53 PM EST 100 mg Given 02/26/2013 9:00 AM EST 100 mg doxycycline (VIBRA-TABS) tablet 100 mg 100 mg, Oral, EVERY 12 HOURS SCHEDULED (2 times per day), First dose on [place] 02/24/13 at 1430, Until Discontinued, STAT, Indication for (Active or Suspected): for Pneumonia (Community) Given 02/27/2013 9:20 AM EST 100 mg Given 02/26/2013 8:54 PM EST 100 mg Given 02/26/2013 9:00 AM EST 100 mg enoxaparin (LOVENOX) injection 40 mg 40 mg, Subcutaneous, DAILY, First dose on Mon02/25/13 at 0900, Until Discontinued, Routine Given 02/27/2013 9:2 1 AM EST 40 mg Given 02/26/2013 9:00 AM EST 40 mg Given 02/25/2013 8:46 AM EST 40 mg esomeprazole (NEXIUM) capsule 40 mg 40 mg, Oral, DAILY, First dose on Mon02/25/13 at 0900, Until Discontinued, Routine Given 02/27/2013 9:21 AM EST 40 mg Given 02/26/2013 9:00 AM EST 40 mg fluticasone-salmeterol (ADVAIR HFA) 230-21 mcg/actuation inhaler 2 puff 2 puff, Inhalation, EVERY 12 HOURS SCHEDULED (2 times per day), First dose on [place] 02/24/13 at 2100, Until Discontinued, Rinse mouth after administration Therapeutic interchange for Advair 500/50 mcg/actuation Given 02/27/2013 9:21 AM EST 2 puffs Given 02/26/2013 8:54 PM EST 2 puffs Given 02/26/2013 9:00 AM EST 2 puffs hydroCODone-acetaminophen (VICODIN) 5-500 mg per tablet 1 tablet 1 tablet, Oral, ONCE, 1 dose, On 02/24/13 at 1415, Maximum dose of acetaminophen is 4000 mg from all sources in 24 hours., STAT Given 02/24/2013 2:15 PM EST 1 tablet hydroCODone-acetaminophen (VICODIN) 5-500 mg per tablet 1 tablet 1 tablet, Oral, EVERY 6 HOURS PRN, Starting on 02/24/13 at 1744, Until Mon02/27/13 at 1612, dental pain, Maximum dose of acetaminophen is 4000 mg from all sources in 24 hours., Routine Given 02/27/2013 11:34 AM EST 1 tablet Given 02/27/2013 5:30 AM EST 1 tablet Given 02/26/2013 7:02 PM EST 1 tablet insulin aspart (novoLOG) PEN injection 2-8 Units 2-8 Units, Subcutaneous, 4 TIMES DAILY BEFORE MEALS & NIGHTLY, First dose (after last modification) on 02/24/13 at 2300, Until Discontinued, CORRECTION BOLUS Moderate BG 140 - 160 Give 2 units BG 161 - 200 Give 4 units BG 201 - 240 Give 6 units BG greater than 240, give 8 units and recheck BG in 2 hours. If BG remains greater than 240, repeat 8 units (no more than three times) & call for new basal insulin orders. If less than 240 after two hours, give no insulin and resume prior schedule., STAT Given 02/27/2013 12:14 PM EST 4 Units Given 02/26/2013 4:30 PM EST 8 Units Given 02/26/2013 11:30 AM EST 6 Units ipratropium-albuterol (DUONEB) 0.5 mg-3 mg(2.5 mg base)/3 mL nebulizer solution 3 mL 3 mL, Nebulization, EVERY 4 HOURS, First dose on 02/24/13 at 1345, Until Discontinued, Routine Given 02/27/2013 1:21 PM EST 3 mLs Given 02/27/2013 9:21 AM EST 3 mLs Given 02/27/2013 5:30 AM EST 3 mLs mineral oil Oral liquid 15 mL 15 mL, Oral, DAILY PRN, Starting on Mon02/25/13 at 0854, Until Mon02/27/13 at 1612, Constipation, Routine Given 02/25/2013 8:59 PM EST 15 mLs misoprostol (CYTOTEC) tablet 200 mcg 200 mcg, Oral, ONCE, 1 dose, On Mon02/24/13 at 2130, Routine Given 02/24/2013 8:50 PM EST 200 mcg misoprostol (CYTOTEC) tablet 200 mcg 200 mcg, Oral, 2 TIMES DAILY, First dose (after last reorder) on Mon02/25/13 at 1430, Until Discontinued, Please give with diclofenac, Routine Given 02/27/2013 11:09 AM EST 200 mcg Given 02/26/2013 8:54 PM EST 200 mcg Given 02/26/2013 9:00 AM EST 200 mcg nystatin (MYCOSTATIN) 100,000 unit/mL oral suspension 500,000 Units 500,000 Units, Oral, 4 TIMES DAILY, First dose on Mon02/24/13 at 1415, Until Discontinued, Routine Given 02/27/2013 12:14 PM EST 500,000 Units Given 02/27/2013 9:22 AM EST 500,000 Units Given 02/26/2013 8:55 PM EST 500,000 Units PARoxetine (PAXIL) tablet 40 mg 40 mg, Oral, EVERY MORNING, First dose on Mon02/25/13 at 0700, Until Discontinued, Routine Given 02/27/2013 6:5 5 AM EST 40 mg Given 02/26/2013 7:00 AM EST 40 mg Given 02/25/2013 6:18 AM EST 40 mg polyethylene glycol (MIRALAX) packet 17 g 17 g, Oral, ONCE, 1 dose, On Mon02/26/13 at 1100, Routine Given 02/26/2013 11:00 AM EST 17 g pramipexole (MIRAPEX) tablet 1 mg 1 mg, Oral, NIGHTLY, First dose on Mon02/24/13 at 2100, Until Discontinued, For restless leg., Routine Given 02/26/2013 8:55 PM EST 1 mg Given 02/25/2013 9:00 PM EST 1 mg Given 02/24/2013 8:50 PM EST 1 mg predniSONE (DELTASONE) tablet 30 mg 30 mg, Oral, DAILY, First dose (after last modification) on Mon02/27/13 at 0900, Until Discontinued, Routine Given 02/27/2013 9:22 AM EST 30 mg predniSONE (DELTASONE) tablet 50 mg 50 mg, Oral, DAILY, First dose (after last modification) on Mon02/26/13 at 0900, Until Discontinued, Routine Given 02/26/2013 9:00 AM EST 50 mg predniSONE (DELTASONE) tablet 60 mg 60 mg, Oral, ONCE, 1 dose, On 02/24/13 at 1345, STAT Given 02/24/2013 1:45 PM EST 60 mg predniSONE (DELTASONE) tablet 60 mg 60 mg, Oral, DAILY, First dose on 02/25/13 at 0900, Until Discontinued, Routine Given 02/25/2013 8:46 AM EST 60 mg simvastatin (ZOCOR) tablet 20 mg 20 mg, Oral, NIGHTLY, First dose (after last modification) on 02/24/13 at 2130, Until Discontinued Given 02/26/2013 8:55 PM EST 20 mg Given 02/25/2013 9:00 PM EST 20 mg Given 02/24/2013 8:50 PM EST 20 mg sodium chloride 0.9 % flush 5 mL 5 mL, Intravenous, EVERY 12 HOURS, First dose on 02/24/13 at 1800, Until Discontinued Given 02/27/2013 6:00 AM EST 5 mLs Given 02/26/2013 6:00 PM EST 5 mLs Given 02/26/2013 6:00 AM EST 5 mLs documented in this encounter Active and Recently Administered Medications Times are shown in EST. Scheduled Medication Order 02/25/2013 02/26/2013 02/27/2013 amitriptyline (ELAVIL) tablet 75 mg (CANCELED) 75 mg, Oral, NIGHTLY, First dose on 02/24/13 at 2100, Until Discontinued, Routine 2099 (Given - Provider: Key Lyles RN) 2052 (Given - Provider: Rachel Vu RN) amlodipine (NORVASC) tablet 10 mg (CANCELED) 10 mg, Oral, DAILY, First dose on 02/25/13 at 0900, Until Discontinued, Routine 0846 (Given - Provider: Yaneth Rosario RN) 0900 (Given - Provider: Ivania Daniel RN) 0919 (Given - Provider: Karina Hernandez RN) bisacodyl (DULCOLAX) suppository 10 mg (COMPLETED) 10 mg, Rectal, ONCE, 1 dose, On Mon02/26/13 at 1330, Routine 1330 (Given - Provider: Ivania Daniel RN) bisacodyl (DULCOLAX) suppository 10 mg (COMPLETED) 10 mg, Rectal, ONCE, 1 dose, On Mon02/26/13 at 1500, Routine 1630 (Given - Provider: Ivania Daniel RN) cefTRIaxone (ROCEPHIN) 1g in dextrose 5% 50mL (CANCELED) 1 g, Intravenous, EVERY 24 HOURS, First dose on Mon02/25/13 at 1400, Until Discontinued, Administer over 30 Minutes, Indication for (Active or Suspected): for Pneumonia (Community) 1404 (Given - Provider: Yaneth Rosario RN) 1400 (Given - Provider: Ivania Daniel RN) 1214 (Given - Provider: Karina Hernandez RN) diaZEPam (VALIUM) tablet 5 mg (CANCELED) 5 mg, Oral, 2 TIMES DAILY, First dose on Mon02/25/13 at 1100, Until Discontinued, Routine 1100 (Given - Provider: Yaneth Rosario RN)2100 (Given - Provider: Key Lyles RN) 0900 (Given - Provider: Ivania Daniel RN)1713 (Given - Provider: Ivania Daniel RN - Comment: MD aware of early administration) 0920 (Given - Provider: Karina Hernandez RN) diclofenac (VOLTAREN) EC tablet 75 mg (CANCELED) 75 mg, Oral, 2 TIMES DAILY, First dose (after last reorder) on Mon02/25/13 at 1430, Until Discontinued, Routine 1558 (Given - Provider: Yaneth Rosario RN - Comment: med not available)2100 (Given - Provider: Key Lyles RN) 0900 (Given - Provider: Ivania Daniel RN)1711 (Given - Provider: Ivania Daniel RN - Comment: MD aware of eary administration) 1108 (Given - Provider: Karina Hernandez RN - Comment: Missing medication from pharmacy) docusate sodium (COLACE) capsule 100 mg (CANCELED) 100 mg, Oral, 2 TIMES DAILY, First dose on Mon02/25/13 at 0900, Until Discontinued, Routine 0943 (Given - Provider: Yaneth Rosario RN)2099 (Given - Provider: Key Lyles RN) 09 (Given - Provider: Ivania Daniel RN)2052 (Given - Provider: Rachel Vu RN) 09 (Given - Provider: Karina Hernandez RN) doxycycline (VIBRA-TABS) tablet 100 mg 100 mg, Oral, EVERY 12 HOURS SCHEDULED (2 times per day), First dose on Mon02/24/13 at 1430, Until Discontinued, STAT, Indication for (Active or Suspected): for Pneumonia (Community) 0846 (Given - Provider: Yaneth Rosario RN)2099 (Given - Provider: Key Lyles RN) 899 (Given - Provider: Ivania Daniel RN)2053 (Given - Provider: Rachel Vu RN) 09 (Given - Provider: Karina Hernandez RN) enoxaparin (LOVENOX) injection 40 mg (CANCELED) 40 mg, Subcutaneous, DAILY, First dose on Mon02/25/13 at 0900, Until Discontinued, Routine 0846 (Given - Provider: Yaneth Rosario RN) 09 (Given - Provider: Ivania Daniel RN) 09 (Given - Provider: Karina Hernandez RN) esomeprazole (NEXIUM) capsule 40 mg (CANCELED) 40 mg, Oral, DAILY, First dose on Mon02/25/13 at 0900, Until Discontinued, Routine 0643 (Due - Provider: Jhoana Bai RN) 09 (Given - Provider: Ivania Daniel RN) 09 (Given - Provider: Karina Hernandez RN) fluticasone-salmeterol (ADVAIR HFA) 230-21 mcg/actuation inhaler 2 puff (CANCELED) 2 puff, Inhalation, EVERY 12 HOURS SCHEDULED (2 times per day), First dose on Mon02/24/13 at 2100, Until Discontinued, Rinse mouth after administration Therapeutic interchange for Advair 500/50 mcg/actuation 0846 (Given - Provider: Yaneth Rosario RN)2100 (Given - Provider: Key Lyles, LINDSEY) 0900 (Given - Provider: Ivania Daniel, LINDSEY)2054 (Given - Provider: Rachel Vu, LINDSEY) 0921 (Given - Provider: Karina Hernandez RN) insulin aspart (novoLOG) PEN injection 2-8 Units (CANCELED) 2-8 Units, Subcutaneous, 4 TIMES DAILY BEFORE MEALS & NIGHTLY, First dose (after last modification) on 02/24/13 at 2300, Until Discontinued, CORRECTION BOLUS Moderate BG 140 - 160 Give 2 units BG 161 - 200 Give 4 units BG 201 - 240 Give 6 units BG greater than 240, give 8 units and recheck BG in 2 hours. If BG remains greater than 240, repeat 8 units (no more than three times) & call for new basal insulin orders. If less than 240 after two hours, give no insulin and resume prior schedule., STAT 0730 (Given - Provider: Yaneth Rosario RN)1130 (Given - Provider: Yaneth Rosario, LINDSEY)1630 (Given - Provider: Yaneth Rosario RN)2100 (Given - Provider: Key Lyles, LINDSEY) 0730 (Not Given - Provider: Ivania Daniel RN - Reason: Order parameters not met)1130 (Given - Provider: Ivania Daniel RN)1630 (Given - Provider: Ivania Daniel, LINDSEY)2100 (Not Given - Provider: Rachel Vu RN - Reason: Order parameters not met) 0730 (Not Given - Provider: Karina Hernandez RN - Reason: Order parameters not met)1214 (Given - Provider: Karina Hernandez RN) ipratropium-albuterol (DUONEB) 0.5 mg-3 mg(2.5 mg base)/3 mL nebulizer solution 3 mL (CANCELED) 3 mL, Nebulization, EVERY 4 HOURS, First dose on 02/24/13 at 1345, Until Discontinued, Routine 0234 (Given - Provider: Jhoana Bai, LINDSEY)0618 (Given - Provider: Jhoana Bai, LINDSEY)0846 (Given - Provider: Yaneth Rosario RN)1345 (Given - Provider: Yaneth Rosario RN)1754 (Given - Provider: Yaneth Rosario RN)2145 (Given - Provider: Key Lyles RN) 014 (Not Given - Provider: Key Lyles RN - Reason: See comment)0545 (Given - Provider: Key Lyles RN)0945 (Given - Provider: Ivania Daniel RN)1620 (Given - Provider: Ivania Daniel RN)1745 (Not Given - Provider: Ivania Daniel RN - Reason: See comment - Comment: off schedual too early)2053 (Given - Provider: Rachel Vu RN) 014 (Not Given - Provider: Rachel Vu RN - Reason: See comment - Comment: Patient sleeping.)0530 (Given - Provider: Rachel Vu RN)0921 (Given - Provider: Karina Hernandez RN)1321 (Given - Provider: Karina Hernandez RN) misoprostol (CYTOTEC) tablet 200 mcg (CANCELED) 200 mcg, Oral, 2 TIMES DAILY, First dose (after last reorder) on Mon02/25/13 at 1430, Until Discontinued, Please give with diclofenac, Routine 1600 (Given - Provider: Yaneth Rosario RN - Comment: med not available)2100 (Given - Provider: Key Lyles RN) 0900 (Given - Provider: Ivania Daniel RN)205 (Given - Provider: Rachel Vu RN) 1109 (Given - Provider: Karina Hernandez RN) nystatin (MYCOSTATIN) 100,000 unit/mL oral suspension 500,000 Units (CANCELED) 500,000 Units, Oral, 4 TIMES DAILY, First dose on Mon02/24/13 at 1415, Until Discontinued, Routine 0846 (Given - Provider: Yaneth Rosario RN)1238 (Given - Provider: Yaneth Rosario RN)1629 (Given - Provider: Yaneth Rosario RN)2100 (Given - Provider: Key Lyles RN) 0900 (Given - Provider: Ivania Daniel RN)1300 (Given - Provider: Ivania Daniel, LINDSEY)1700 (Given - Provider: Ivania Daniel RN)2054 (Given - Provider: Rachel Vu RN) 09 (Given - Provider: Karina Hernandez, RN)1214 (Given - Provider: Karina Hernandez RN) PARoxetine (PAXIL) tablet 40 mg (CANCELED) 40 mg, Oral, EVERY MORNING, First dose on Mon02/25/13 at 0700, Until Discontinued, Routine 0618 (Given - Provider: Jhoana Bai RN) 0700 (Given - Provider: Ivania Daniel RN) 0655 (Given - Provider: Rachel Vu RN) polyethylene glycol (MIRALAX) packet 17 g (COMPLETED) 17 g, Oral, ONCE, 1 dose, On Mon02/26/13 at 1100, Routine 1100 (Given - Provider: Ivania Daniel RN) pramipexole (MIRAPEX) tablet 1 mg (CANCELED) 1 mg, Oral, NIGHTLY, First dose on Mon02/24/13 at 2100, Until Discontinued, For restless leg., Routine 2100 (Given - Provider: Key Lyles RN) 2054 (Given - Provider: Rachel Vu RN) predniSONE (DELTASONE) tablet 20 mg 20 mg, Oral, DAILY, First dose (after last modification) on Mon02/28/13 at 0900, Until Discontinued, Routine predniSONE (DELTASONE) tablet 30 mg (CANCELED) 30 mg, Oral, DAILY, First dose (after last modification) on Mon02/27/13 at 0900, Until Discontinued, Routine 921 (Given - Provider: Karina Hernandez RN) predniSONE (DELTASONE) tablet 50 mg (CANCELED) 50 mg, Oral, DAILY, First dose (after last modification) on Mon02/26/13 at 0900, Until Discontinued, Routine 09 (Given - Provider: Ivania Daniel RN) predniSONE (DELTASONE) tablet 60 mg (CANCELED) 60 mg, Oral, DAILY, First dose on Mon02/25/13 at 0900, Until Discontinued, Routine 0846 (Given - Provider: Yaneth Rosario RN) simvastatin (ZOCOR) tablet 20 mg (CANCELED) 20 mg, Oral, NIGHTLY, First dose (after last modification) on 02/24/13 at 2130, Until Discontinued 2100 (Given - Provider: Key Lyles RN) 2054 (Given - Provider: Rachel Vu RN) sodium chloride 0.9 % flush 5 mL (CANCELED) 5 mL, Intravenous, EVERY 12 HOURS, First dose on 02/24/13 at 1800, Until Discontinued 0600 (Given - Provider: Jhoana Bai RN)1800 (Given - Provider: Yaneth Rosario RN) 0600 (Given - Provider: Key Lyles RN)1800 (Given - Provider: Ivania Daniel RN) 0600 (Given - Provider: Rachel Vu, LINDSEY) PRN Medication Order 02/25/2013 02/26/2013 02/27/2013 acetaminophen (TYLENOL) tablet 650 mg (CANCELED) 650 mg, Oral, EVERY 6 HOURS PRN, Starting on 02/24/13 at 1744, Until Mon02/27/13 at 1612, Pain, Fever, Administer for temperature greater than or equal to 38.2 degrees celsius. Maximum daily dose of acetaminophen from all sources not to exceed 4,000 mg., Routine 0933 (Given - Provider: Karina Hernandez RN) hydroCODone-acetaminophe n (VICODIN) 5-500 mg per tablet 1 tablet (CANCELED) 1 tablet, Oral, EVERY 6 HOURS PRN, Starting on 02/24/13 at 1744, Until Mon02/27/13 at 1612, dental pain, Maximum dose of acetaminophen is 4000 mg from all sources in 24 hours., Routine 0630 (Given - Provider: Jhoana Bia RN)1020 (Given - Provider: Yaneth Rosario RN)1030 (Not Given - Provider: Yaneth Rosario RN - Reason: See comment - Comment: wrong time)1600 (Given - Provider: Yaneth Rosario RN)2134 (Given - Provider: Key Lyles RN) 0555 (Given - Provider: Key A Queen, RN)1201 (Given - Provider: Ivania Daniel, LINDSEY)1902 (Given - Provider: Ivania Daniel, LINDSEY) 0530 (Given - Provider: Rachel Vu RN)1134 (Given - Provider: Karina Hernandez RN) mineral oil Oral liquid 15 mL (CANCELED) 15 mL, Oral, DAILY PRN, Starting on 02/25/13 at 0854, Until Mon02/27/13 at 1612, Constipation, Routine 2058 (Given - Provider: Key Lyles RN) pneumococcal (PNEUMOVAX-23 (PPSV23)) vaccine inejction 0.5 mL 0.5 mL, Intramuscular, PRIOR TO DISCHARGE, 1 dose, Starting on Mon02/24/13 at 1858, Until Mon02/27/13 at 1612, Per Protocol, Hold for fever greater than 38.9C, Routine 1222 (Not Given - Provider: Karina Hernandez RN - Reason: Patient/family refused - Comment: Patient states she has already had one in the last 5 years) documented in this encounter Care Teams Outboard System Operator Relationship Specialty Start Date End Date Hien Newberry MD [address] [place] [address] PCP - General 03/09/10 documented as of this encounter
--- OUTSIDE RECORDS SUMMARY | 2023-12-15 06:17 | XMS_ITS | Encounter Summary ---
Author Organization [facility] Address [facility] [place] [address] Care Team Providers Care Videotape Recording Engineer Name Role Phone Nayana Blankenship MD Primary Care Provider [phone] Encounter Details Date Type Department Care Team (Late st Contact Info) Description 06/18/2012 Orders [place] [address] Kortney Barlow MD [facility] [address] [facility] [place] [address] Social History Tobacco Use Types Packs/Day Years [...] Diagnosis Comments FILM LIBRARY STORAGE ONLY CT CHEST ABDOMEN PELVIS Routine 06/18/2012 7:02 AM EST documented in this encounter Results * Film Library- Storage only CT Chest abdomen Pelvis (06/18/2012 7:02 AM EST) 06/18/2012 7:02 AM EST Narrative RAD - 12/10/2013 11:48 PM EDT This is a non-reportable exam. Procedure Note Jules Burk - 12/10/2013 This is a non-reportable exam. Kortney Barlow MD IMG FILM LIBRARY ORDERABLES RAD [address] [place] [address] documented in this encounter Visit Diagnoses Not on filedocumented in this encounter Care Teams Videotape Recording Engineer Relationship Specialty Start Date End Date Nayana Blankenship MD [address] [place] [address] PCP - General 03/09/10 documented as of this encounter
--- OUTSIDE RECORDS SUMMARY | 2023-12-15 06:18 | XMS_ITS | Encounter Summary ---
Author Organization [facility] Address [facility] [place] [address] Care Team Providers Care Associate Professor Name Role Phone Nayana Blankenship MD Primary Care Provider [phone] Encounter Details Date Type Department Care Team (Late st Contact Info) Description 05/14/2010 9:54 AM EST - 05/14/2010 11:59 PM EST Hospital [place] [id number] Social History Tobacco Use Types Packs/Day Years Used Date Smoking Tobacco: Never Assessed Sex and Gender Information Value Date Recorded Sex Assigned at Not on file Gender Identity Not on file Sexual Orientation Not on file documented as of this encounter Medications at Time of Discharge Medication Sig Dispensed Refills Start Date End Date ERGOCALCIFEROL, VITAMIN D2, (VITAMIN D ORAL) 05/14/2010 ibuprofen (ADVIL;MOTRIN) 800 mg tablet 800 MG = 1 Tablet(s), PO, Three times daily 05/14/2010 fluticasone-salmeterol (ADVAIR DISKUS) 500-50 mcg/dose diskus inhaler 05/14/201009/2012 PARoxetine (PAXIL) 40 mg tablet 05/14/2010 11/20/2012 amitriptyline (ELAVIL) 75 mg tablet 05/14/2010 11/20/2012 amlodipine (NORVASC) 10 mg tablet 05/14/2010 11/20/2012 DICLOFENAC SODIUM/MISOPROSTOL (ARTHROTEC 50 ORAL) 05/14/2010 09/13/19 14 omeprazole (PRILOSEC) 20 mg capsule 05/14/2010 11/20/2012 tiotropium (SPIRIVA WITH HANDIHALER) 18 mcg inhalation capsule 05/14/2010 3 levalbuterol (XOPENEX) 0.63 mg/3 mL nebulizer solution 05/14/2010 11/20/2012 penicillin v potassium (VEETID) 500 mg tablet 500 MG = 1 Tablet(s), PO, Four times daily 05/14/2010 12/04/2012 documented as of this encounter Plan of Treatment Not on file documented as of this encounter Visit Diagnoses Not on filedocumented in this encounter Care Teams Associate Professor Relationship Specialty Start Date End Date Nayana Blankenship MD [address] [place] [address] PCP - General 03/09/10 documented as of this encounter
--- OUTSIDE RECORDS SUMMARY | 2023-12-15 06:18 | XMS_ITS | Encounter Summary ---
Author Organization [facility] Address [facility] [place] [address] Care Team Providers Care Medical Technical Writer Name Role Phone Nayana Blankenship MD Primary Care Provider [phone] Encounter Details Date Type Department Care Team (Late st Contact Info) Description 04/07/2010 1:30 PM EST Follow-[place] [address] Abdulaziz Baltazar MD [facility] [place] [address] Discharge Disposition: Home Social History Tobacco Use [...] filedocumented in this encounter Care Teams Medical Technical Writer Relationship Specialty Start Date End Date Nayana Blankenship MD [address] [place], [place] [address] PCP - General 03/09/10 documented as of this encounter
--- OUTSIDE RECORDS SUMMARY | 2023-12-15 06:18 | XMS_ITS | Encounter Summary ---
Author Organization [facility] Address [facility] [place] [address] Care Team Providers Care Health And Fitness Professor Name Role Phone Unavailable Primary Care Provider Unavailabl e Encounter Details Date Type Department Care Team (Late st Contact Info) Description 02/23/2010 10:30 AM EST - 02/23/2010 11:59 PM [facility] Hospital [place] [address] Social History Tobacco Use Types Packs/Day Years [...]
--- OUTSIDE RECORDS SUMMARY | 2023-12-15 06:18 | XMS_ITS | Encounter Summary ---
Author Organization [facility] Address [facility] [place] [address] Care Team Providers Care Editor Department Name Role Phone Nayana Blankenship MD Primary Care Provider [phone] Encounter Details Date Type Department Care Team (Latest Contact Info) Description 03/11/2010 8:13 AM EST - 03/17/2010 3:12 PM EST Hospital Encounter [address] [place] [address] Harrison Hurtado MD [facility] [place] [address] [place] [address] Discharge Disposition: Home with [facility] Social History Tobacco Use Types Packs/Day Years [...] - Inhaled Oxygen Concentration - - Weight - - Height 157.5 cm (5' 2) 03/18/2008 9:18 AM EST Body Mass Index - - documented in this encounter Plan of Treatment Not on file documented as of this encounter Visit Diagnoses Not on filedocumented in this encounter Care Teams Editor Department Relationship Specialty Start Date End Date Nayana Blankenship MD [address] [place] [address] PCP - General 03/09/10 documented as of this encounter
--- OUTSIDE RECORDS SUMMARY | 2023-12-15 06:18 | XMS_ITS | Encounter Summary ---
Author Organization [facility] Address [facility] [place] [address] Care Team Providers Care Transportation Job Titles Name Role Phone Nayana Blankenship MD Primary Care Provider [phone] Encounter Details Date Type Department Care Team (Late st Contact Info) Description 03/11/2010 [place] [address] Antony Day MD [facility] [place] [address] Social History Tobacco Use Types Packs/Day Years Used Date Smoking Tobacco: Never Assessed Sex and Gender Information Value Date Recorded Sex Assigned at Not on file Gender Identity Not on file Sexual Orientation Not on file documented as of this encounter Plan of Treatment Not on file documented as of this encounter Procedures Procedure Name Priority Date/Time Associated Diagnosis Comments C. DIFFICILE SCREEN Routine 03/16/2010 2 :20 PM EST DIFFERENTIAL, MANUAL Routine 03/16/2010 6:35 AM EST CREATININE Routine 03/16/2010 6:35 AM EST CBC (WITH DIFF) Routine 03/16/2010 6:35 AM EST BUN Routine 03/16/2010 6:35 AM EST ELECTROLYTES PANEL Routine 03/16/2010 6: 35 AM EST SCAN, PERIPHERAL BLOOD Routine 03/14/2010 8:45 AM EST DIFFERENTIAL, AUTOMATED Routine 03/14/2010 8:45 AM EST CREATININE Routine 03/14/2010 8:45 AM EST CBC (WITH DIFF) Routine 03/14/2010 8:45 AM EST BUN Routine 03/14/2010 8:45 AM EST ELECTROLYTES PANEL Routine 03/14/2010 8: 45 AM EST SCAN, PERIPHERAL BLOOD Routine 03/13/2010 6:00 PM EST DIFFERENTIAL, AUTOMATED Routine 03/13/2010 6:00 PM EST CBC (WITH DIFF) Routine 03/13/2010 6:00 PM EST DIFFERENTIAL, AUTOMATED Routine 03/13/2010 8:40 AM EST CREATININE Routine 03/13/2010 8:40 AM EST IRON AND TIBC Routine 03/13/2010 8:40 AM EST CBC (WITH DIFF) Routine 03/13/2010 8:40 AM EST BUN Routine 03/13/2010 8:40 AM EST FERRITIN Routine 03/13/2010 8:40 AM EST ELECTROLYTES PANEL Routine 03/13/2010 8: 40 AM EST VANCOMYCIN, TROUGH Routine 03/12/2010 8: 00 PM EST FERRITIN Routine 03/12/2010 2:40 PM EST DIFFERENTIAL, AUTOMATED Routine 03/12/2010 5:45 AM EST CREATININE Routine 03/12/2010 5:45 AM EST IRON AND TIBC Routine 03/12/2010 5:45 AM EST CBC (WITH DIFF) Routine 03/12/2010 5:45 AM EST BUN Routine 03/12/2010 5:45 AM EST ELECTROLYTES PANEL Routine 03/12/2010 5: 45 AM EST POCT GLUCOSE Routine 03/11/2010 9:15 PM EST POCT GLUCOSE Routine 03/11/2010 6:08 PM EST BLOOD CULTURE Routine 03/11/2010 4:25 PM EST URINALYSIS WITH REFLEX CULTURE STAT 03/11/2010 12:51 PM EST BLOOD CULTURE Routine 03/11/2010 12:30 PM EST URINE CULTURE Routine 03/11/2010 12:25 PM EST BLOOD GAS ARTERIAL ([facility]) STAT 03/11/2010 10:10 AM EST ABORH TYPE MANUAL STAT 03/11/2010 9:3 9 AM EST SELECTED CELL SCREEN STAT 03/11/2010 9:39 AM EST DIFFERENTIAL, AUTOMATED STAT 03/11/2010 9:20 AM EST CREATININE STAT 03/11/2010 9:20 AM EST APTT STAT 03/11/2010 9:20 AM EST PROTHROMBIN TIME STAT 03/11/2010 9:20 AM EST CBC (WITH DIFF) STAT 03/11/2010 9:20 AM EST BUN STAT 03/11/2010 9:20 AM EST PHOSPHORUS STAT 03/11/2010 9:20 AM EST MAGNESIUM STAT 03/11/2010 9:20 AM EST CALCIUM STAT 03/11/2010 9:20 AM EST HEPATIC FUNCTION PANEL STAT 03/11/2010 9:20 AM EST ELECTROLYTES PANEL STAT 03/11/2010 9: 20 AM EST documented in this encounter Results * C. DIFFICILE SCREENING TEST (03/16/2010 2:20 PM EST) C Diff Interp Negative Negative CERNER MILLENNIUM Stool specimen (specimen) 03/16/2010 2:20 PM EST 03/16/2010 3:04 PM EST Harrison Hurtado MD MICROBIOLOGY - GENER AL ORDERABLES CERNER MILLENNIUM * (ABNORMAL) REFLEX LAB-NCDIFF (03/16/2010 6:35 AM EST) Segmented Neutrophils Manual 59 34 - 71 % CERNER MILLENNIUM Band % 1 0 - 12 % CERNER MILLENNIUM Lymphocyte Manual 19 19 - 53 % CE RNER MILLENNIUM Monocyte Manual 2(L) 4 - 13 % CERN ER MILLENNIUM Eosinophil Manual 3 0 - 7 % CE RNER MILLENNIUM Metamyelocyte Manual 10(H) 0 - 0 % CERNER MILLENNIUM Myelocyte Manual 1(H) 0 - 0 % CER NER MILLENNIUM Plasma cell Manual 5(H) 0 - 0 % CERNER MILLENNIUM Segs Absolute Manual 7.2(H) 1.5 - 6.3 x10(3)/mc L CERNER MILLENNIUM Band Abs 0.1(L) 0.2 - 0.6 x10(3)/mc L CERNER MILLENNIUM ANC 7.36(H) 1.50 - 6.30 x10(3)/mc L CERNER MILLENNIUM Lymph Absolute Manual 2.3 1.0 - 3.6 x10(3)/mc L CERNER MILLENNIUM Monocyte Absolute Manual 0.3 0.2 - 1.0 x10(3)/mc L CERNER MILLENNIUM Eos Absolute Manual 0.4 0.0 - 0.5 x10(3)/mc L CERNER MILLENNIUM [place] Absolute Manual 1.2(H) 0.0 - 0.0 x10(3)/mc L CERNER MILLENNIUM Myelo Absolute Manual 0.1(H) 0.0 - 0.0 x10(3)/mc L CERNER MILLENNIUM Plasma Absolute Manual 0.6(H) 0.0 - 0.0 x10(3)/mc L CERNER MILLENNIUM Nucleated Red Cell Manual 1(H) 0 - 0 % CERNER MILLENNIUM Total Cells Ct 100 CERNE R MILLENNIUM Plat estimate Increased CERNER MILLENNIUM RBC Morphology Abnormal CERNE R MILLENNIUM Polychromasia Present >5/HPF CERNER MILLENNIUM Atypical Lymph Moderate CERNE R MILLENNIUM nRBC Abs 0.120(H) 0.000 - 0.012 x10(3)/mc L CERNER MILLENNIUM Blood specimen (specimen) 03/16/2010 6:35 AM EST 03/16/2010 7:04 AM EST Harrison Hurtado MD HEMATOLOGY ORDERABLE S CERNER MILLENNIUM * ELECTROLYTE PANEL (03/16/2010 6:35 AM EST) Sodium 140 135 - 145 mmol/L CERNER MILLENNIUM Potassium 3.6 3.5 - 5.0 mmol/L CERNER MILLENNIUM Comment: Please note: ??Patients with WBC >100,000 may have falsely elevated Potassium levels. ??For accurate Potassium quantification in these patients send serum separator tube (gold top) for subsequent determinations. ??Contact the Clinical Chemistry Laboratory if there are any questions. Chloride 103 98 - 107 mmol/L CERNER MILLENNIUM Carbon Dioxide 28 22 - 31 mmol/L CERNER MILLENNIUM Anion Gap 9 5 - 15 mmol/L CERNER MILLENNIUM Blood specimen (specimen) 03/16/2010 6:35 AM EST 03/16/2010 7:04 AM EST Harrison Hurtado MD CHEMISTRY ORDERABLES Performing Organization Address City/[facility] Co de Phone Number [facility] * (ABNORMAL) CREATININE, SERUM (03/16/2010 6:35 AM EST) Creatinine 0.60(L) 0.70 - 1.20 mg/dL CERNER MILLENNIUM Est Glomerular Filtration Rate >60 >=60 [facility] Comment: The National Kidney Disease Education Program (NKDEP) has recommended all laboratories report estimated GFR (eGFR) along with plasma creatinine measurements to assist you with recognition of early kidney disease. Caveats: ??Plasma creatinine should be at steady-state (unchanged within the past week). ??Patient age > = 18 years, and for Americans multiply eGFR by 1.2. At present, NKDEP does NOT recommend using the MDRD equation for drug dosing purposes and pharmacists should continue to use their current dosing methods. In addition, numerical eGFR values greater than 60 ml/min/1.73 square meters should be treated as > 60, and not an exact number due to greater inaccuracies at these higher values. Per NKDEP, they classify normal renal function as any GFR >60ml/min/1.73 square meters; chronic kidney disease when GFR <60, and renal failure when GFR <15. ??This calculation may not be valid for patients with atypical muscle mass (very lean or obese), acute renal failure, and in patients with diabetic kidney disease. References: http://nkdep.nih.gov/resources/NKDEP_Suggestn4Labs_0606_508.pdf http://www.kidney.org/professionals/kls/pdf/faq_gfr.pdf Blood specimen (specimen) 03/16/2010 6:35 AM EST 03/16/2010 7:04 AM EST Harrison Hurtado MD CHEMISTRY ORDERABLES [facility] * BUN (03/16/2010 6:35 AM EST) Blood Urea Nitrogen 12 8 - 18 mg/dL CERNER MILLENNIUM Blood specimen (specimen) 03/16/2010 6:35 AM EST 03/16/2010 7:04 AM EST Harrison Hurtado MD CHEMISTRY ORDERABLES Performing Organization Address City/[facility]/ZIP Co de Phone Number CERNER MILLENNIUM * (ABNORMAL) CBC (03/16/2010 6:35 AM EST) White Blood Cell 12.3(H) 4.0 - 10.0 x10(3)/mc L CERNER MILLENNIUM Red Blood Cell 3.77(L) 3.93 - 5.22 x10(6)/mc L CERNER MILLENNIUM Hemoglobin 10.5(L) 11.2 - 15.7 gm/dL CERNER MILLENNIUM Hematocrit 32.8(L) 34.0 - 45.0 % CERNER MILLENNIUM Mean Cell Volume 87.0 79.0 - 94.0 fL CERNER MILLENNIUM Mean Cell Hemoglobin 27.9 26.6 - 32.2 pg CERNER MILLENNIUM Mean Cell Hemoglobin Concentration 32.0 32.0 - 36.5 gm/dL CERNER MILLENNIUM Platelet 592(H) 145 - 370 x10(3)/mc L CERNER MILLENNIUM RDW Standard Deviation 50.0(H) 35.0 - 46.0 fL CERNER MILLENNIUM RDW coefficient of variation 15.9(H) 10.9 - 14.4 % CERNER MILLENNIUM Mean Platelet Volume 8.6(L) 9.0 - 12.0 fL CERNER MILLENNIUM Blood specimen (specimen) 03/16/2010 6:35 AM EST 03/16/2010 7:04 AM EST Harrison Hurtado MD HEMATOLOGY ORDERABLE S CERNER SVITLANAENNIUM * CREATININE, SERUM (03/14/2010 8:45 AM EST) Creatinine 0.81 0.70 - 1.20 mg/dL CERNER MILLENNIUM Est Glomerular Filtration Rate >60 >=60 CERNER MILLENNIUM Comment: The National Kidney Disease Education Program (NKDEP) has recommended all laboratories report estimated GFR (eGFR) along with plasma creatinine measurements to assist you with recognition of early kidney disease. Caveats: ??Plasma creatinine should be at steady-state (unchanged within the past week). ??Patient age > = 18 years, and for Americans multiply eGFR by 1.2. At present, NKDEP does NOT recommend using the MDRD equation for drug dosing purposes and pharmacists should continue to use their current dosing methods. In addition, numerical eGFR values greater than 60 ml/min/1.73 square meters should be treated as > 60, and not an exact number due to greater inaccuracies at these higher values. Per NKDEP, they classify normal renal function as any GFR >60ml/min/1.73 square meters; chronic kidney disease when GFR <60, and renal failure when GFR <15. ??This calculation may not be valid for patients with atypical muscle mass (very lean or obese), acute renal failure, and in patients with diabetic kidney disease. References: http://nkdep.nih.gov/resources/NKDEP_Suggestn4Labs_0606_508.pdf http://www.kidney.org/professionals/kls/pdf/faq_gfr.pdf Blood specimen (specimen) 03/14/2010 8:45 AM EST 03/14/2010 8:58 AM EST Harrison Hurtado MD CHEMISTRY ORDERABLES Performing Organization Address [facility] Phone Number [facility] * BUN (03/14/2010 8:45 AM EST) Blood Urea Nitrogen 12 8 - 18 mg/dL [facility] Blood specimen (specimen) 03/14/2010 8:45 AM EST 03/14/2010 8:58 AM EST Harrison Hurtado MD CHEMISTRY ORDERABLES Performing Organization Address [facility] Co de Phone Number [facility] * (ABNORMAL) ELECTROLYTE PANEL (03/14/2010 8:45 AM EST) Sodium 148(H) 135 - 145 mmol/L CERNER MILLENNIUM Comment:result rechecked-[facility] Potassium 2.7(AA) 3.5 - 5.0 mmol/L CERNER MILLENNIUM Comment: Results rechecked. ??Called by: haja, Read back by: chinaamish perez, Date/Time:03/14/10 11:30. Please note: ??Patients with WBC >100,000 may have falsely elevated Potassium levels. ??For accurate Potassium quantification in these patients send serum separator tube (gold top) for subsequent determinations. ??Contact the Clinical Chemistry Laboratory if there are any questions. Chloride 109(H) 98 - 107 mmol/L CERNER MILLENNIUM Carbon Dioxide 21(L) 22 - 31 mmol/L CERNER MILLENNIUM Anion Gap 18(H) 5 - 15 mmol/L CERNER MILLENNIUM Blood specimen (specimen) 03/14/2010 8:45 AM EST 03/14/2010 8:58 AM EST Harrison Hurtado MD CHEMISTRY ORDERABLES CERNER MILLENNIUM * REFLEX LAB-SCAN (03/14/2010 8:45 AM EST) Pathologist [facility] Plat estimate Increased CERNER MILLENNIUM RBC Morphology Abnormal CERNE R MILLENNIUM Polychromasia Present >5/HPF CERNER MILLENNIUM Stippled RBC Present >1/HPF CERNER MILLENNIUM Blood specimen (specimen) 03/14/2010 8:45 AM EST 03/14/2010 8:59 AM EST Harrison Hurtado MD HEMATOLOGY ORDERABLE S CERNER MILLENNIUM * (ABNORMAL) REFLEX LAB-A-DIFF (03/14/2010 8:45 AM EST) Neutrophil % 76.6(H) 34.0 - 71.0 % CERNER MILLENNIUM Neutrophil Absolute 13.02(H) 1.50 - 6.30 x10(3)/mc L CERNER MILLENNIUM Lymph % 12.7(L) 19.0 - 53.0 % CERNER MILLENNIUM Lymphocytes Abs 2.2 1.0 - 3.6 x10(3)/mc L CERNER MILLENNIUM Monocyte % 7.0 4.0 - 13.0 % CERNER MILLENNIUM Monocyte Abs 1.2(H) 0.2 - 1.0 x10(3)/mc L CERNER MILLENNIUM Eos % 0.6 0.0 - 7.0 % CERNER MILLENNIUM Eosinophils Abs 0.1 0.0 - 0.5 x10(3)/mc L CERNER MILLENNIUM Basophil % 0.4 0.0 - 2.0 % CERNER MILLENNIUM Baso Absolute 0.1 0.0 - 0.2 x10(3)/mc L CERNER MILLENNIUM Immature Gran % 2.70(H) 0.00 - 0.66 % CERNER MILLENNIUM Comment: Immature granulocytes(IG's)percentage and absolute count will include metamyelocytes, myelocytes, and promyelocytes. Blood smears from CBC's yielding IG's will be scanned manually for concordance. If this scan disagrees with the automated IG or if promyelocytes are noted, a manual differential will be performed. Immature Gran Absolute 0.45(H) 0.00 - 0.05 x10(3)/mc L CERNER MILLENNIUM Blood specimen (specimen) 03/14/2010 8:45 AM EST 03/14/2010 8:59 AM EST Harrison Hurtado MD HEMATOLOGY ORDERABLE S [facility] * (ABNORMAL) CBC (03/14/2010 8:45 AM EST) White Blood Cell 17.0(H) 4.0 - 10.0 x10(3)/mc L CERNER MILLENNIUM Red Blood Cell 3.18(L) 3.93 - 5.22 x10(6)/mc L CERNER MILLENNIUM Hemoglobin 8.8(L) 11.2 - 15.7 gm/dL CERNER MILLENNIUM Hematocrit 27.6(L) 34.0 - 45.0 % CERNER MILLENNIUM Mean Cell Volume 86.8 79.0 - 94.0 fL CERNER MILLENNIUM Mean Cell Hemoglobin 27.7 26.6 - 32.2 pg CERNER MILLENNIUM Mean Cell Hemoglobin Concentration 31.9(L) 32.0 - 36.5 gm/dL CERNER MILLENNIUM Platelet 563(H) 145 - 370 x10(3)/mc L CERNER MILLENNIUM RDW Standard Deviation 52.0(H) 35.0 - 46.0 fL CERNER MILLENNIUM RDW coefficient of variation 16.3(H) 10.9 - 14.4 % CERNER MILLENNIUM Mean Platelet Volume 8.4(L) 9.0 - 12.0 fL CERNER MILLENNIUM Blood specimen (specimen) 03/14/2010 8:45 AM EST 03/14/2010 8:59 AM EST Harrison Hurtado MD HEMATOLOGY ORDERABLE S CERNER MILLENNIUM * REFLEX LAB-SCAN (03/13/2010 6:00 PM EST) Plat estimate Increased CERNER MILLENNIUM RBC Morphology Normal CERNE R MILLENNIUM Blood specimen (specimen) 03/13/2010 6:00 PM EST 03/13/2010 6:15 PM EST Harrison Hurtado MD HEMATOLOGY ORDERABLE S CERNER MILLENNIUM * (ABNORMAL) REFLEX LAB-A-DIFF (03/13/2010 6:00 PM EST) Neutrophil % 83.6(H) 34.0 - 71.0 % CERNER MILLENNIUM Neutrophil Absolute 15.19(H) 1.50 - 6.30 x10(3)/mc L CERNER MILLENNIUM Lymph % 7.4(L) 19.0 - 53.0 % CERNER MILLENNIUM Lymphocytes Abs 1.3 1.0 - 3.6 x10(3)/mc L CERNER MILLENNIUM Monocyte % 5.8 4.0 - 13.0 % CERNER MILLENNIUM Monocyte Abs 1.1(H) 0.2 - 1.0 x10(3)/mc L CERNER MILLENNIUM Eos % 0.1 0.0 - 7.0 % CERNER MILLENNIUM Eosinophils Abs 0.0 0.0 - 0.5 x10(3)/mc L CERNER MILLENNIUM Basophil % 0.4 0.0 - 2.0 % CERNER MILLENNIUM Baso Absolute 0.1 0.0 - 0.2 x10(3)/mc L CERNER MILLENNIUM Immature Gran % 2.70(H) 0.00 - 0.66 % CERNER MILLENNIUM Comment: Immature granulocytes(IG's)percentage and absolute count will include metamyelocytes, myelocytes, and promyelocytes. Blood smears from CBC's yielding IG's will be scanned manually for concordance. If this scan disagrees with the automated IG or if promyelocytes are noted, a manual differential will be performed. Immature Gran Absolute 0.49(H) 0.00 - 0.05 x10(3)/mc L CERNER MILLENNIUM Blood specimen (specimen) 03/13/2010 6:00 PM EST 03/13/2010 6:15 PM EST Harrison Hurtado MD HEMATOLOGY ORDERABLE S CERNER MILLENNIUM * (ABNORMAL) CBC (03/13/2010 6:00 PM EST) White Blood Cell 17.7(H) 4.0 - 10.0 x10(3)/mc L CERNER MILLENNIUM Red Blood Cell 3.18(L) 3.93 - 5.22 x10(6)/mc L CERNER MILLENNIUM Hemoglobin 8.7(L) 11.2 - 15.7 gm/dL CERNER MILLENNIUM Hematocrit 27.4(L) 34.0 - 45.0 % CERNER MILLENNIUM Mean Cell Volume 86.2 79.0 - 94.0 fL CERNER MILLENNIUM Mean Cell Hemoglobin 27.4 26.6 - 32.2 pg CERNER MILLENNIUM Mean Cell Hemoglobin Concentration 31.8(L) 32.0 - 36.5 gm/dL CERNER MILLENNIUM Platelet 574(H) 145 - 370 x10(3)/mc L CERNER MILLENNIUM RDW Standard Deviation 51.1(H) 35.0 - 46.0 fL CERNER MILLENNIUM RDW coefficient of variation 16.2(H) 10.9 - 14.4 % CERNER MILLENNIUM Mean Platelet Volume 8.3(L) 9.0 - 12.0 fL CERNER MILLENNIUM Blood specimen (specimen) 03/13/2010 6:00 PM EST 03/13/2010 6:15 PM EST Harrison Hurtado MD HEMATOLOGY ORDERABLE S Performing Organization Address City/[facility] Co de Phone Number [facility] MILLENNIUM * (ABNORMAL) FERRITIN (03/13/2010 8:40 AM EST) Ferritin 428(H) 30 - 400 ng/mL [facility] Comment: Pediatric reference ranges not verified [place] [facility] interpret with caution. Reference ranges for females greater than 50 years of age approach values for men, i.e., 30-400 ng/mL. Blood specimen (specimen) 03/13/2010 8:40 AM EST 03/13/2010 8:50 AM EST Evaristo Shaffer MD CHEMISTRY ORDERABLES Performing Organization Address [facility] de Phone Number [facility] SVITLANAENNIUM * (ABNORMAL) IRON AND TIBC (03/13/2010 8:40 AM EST) Iron 79 30 - 150 mcg/dL [facility] MILLENNIUM TIBC 195(L) 250 - 450 mcg/dL [facility] MILLENNIUM Iron Saturation 41 20 - 50 % [facility] MILLENNIUM Blood specimen (specimen) 03/13/2010 8:40 AM EST 03/13/2010 8:50 AM EST Evaristo Shaffer MD CHEMISTRY ORDERABLES Performing Organization Address [facility] Co de Phone Number [facility] * (ABNORMAL) ELECTROLYTE PANEL (03/13/2010 8:40 AM EST) Sodium 137 135 - 145 mmol/L [facility] Potassium 3.3(L) 3.5 - 5.0 mmol/L CERNER MILLENNIUM Comment: Please note: ??Patients with WBC >100,000 may have falsely elevated Potassium levels. ??For accurate Potassium quantification in these patients send serum separator tube (gold top) for subsequent determinations. ??Contact the Clinical Chemistry Laboratory if there are any questions. Chloride 101 98 - 107 mmol/L CERNER MILLENNIUM Carbon Dioxide 24 22 - 31 mmol/L CERNER MILLENNIUM Anion Gap 12 5 - 15 mmol/L CERNER MILLENNIUM Blood specimen (specimen) 03/13/2010 8:40 AM EST 03/13/2010 8:50 AM EST Evaristo Shaffer MD CHEMISTRY ORDERABLES CERNER MILLENNIUM * (ABNORMAL) CREATININE, SERUM (03/13/2010 8:40 AM EST) Creatinine 0.63(L) 0.70 - 1.20 mg/dL CERNER MILLENNIUM Est Glomerular Filtration Rate >60 >=60 CERNER MILLENNIUM Comment: The National Kidney Disease Education Program (NKDEP) has recommended all laboratories report estimated GFR (eGFR) along with plasma creatinine measurements to assist you with recognition of early kidney disease. Caveats: ??Plasma creatinine should be at steady-state (unchanged within the past week). ??Patient age > = 18 years, and for Americans multiply eGFR by 1.2. At present, NKDEP does NOT recommend using the MDRD equation for drug dosing purposes and pharmacists should continue to use their current dosing methods. In addition, numerical eGFR values greater than 60 ml/min/1.73 square meters should be treated as > 60, and not an exact number due to greater inaccuracies at these higher values. Per NKDEP, they classify normal renal function as any GFR >60ml/min/1.73 square meters; chronic kidney disease when GFR <60, and renal failure when GFR <15. ??This calculation may not be valid for patients with atypical muscle mass (very lean or obese), acute renal failure, and in patients with diabetic kidney disease. References: http://nkdep.nih.gov/resources/NKDEP_Suggestn4Labs_0606_508.pdf http://www.kidney.org/professionals/kls/pdf/faq_gfr.pdf Blood specimen (specimen) 03/13/2010 8:40 AM EST 03/13/2010 8:50 AM EST Evaristo Shaffer MD CHEMISTRY ORDERABLES CERNER MILLENNIUM * BUN (03/13/2010 8:40 AM EST) Blood Urea Nitrogen 11 8 - 18 mg/dL CERNER MILLENNIUM Blood specimen (specimen) 03/13/2010 8:40 AM EST 03/13/2010 8:50 AM EST Evaristo Shaffer MD CHEMISTRY ORDERABLES Performing Organization Address [facility] Co de Phone Number CERNER MILLENNIUM * (ABNORMAL) REFLEX LAB-A-DIFF (03/13/2010 8:40 AM EST) Neutrophil % 88.3(H) 34.0 - 71.0 % CERNER MILLENNIUM Neutrophil Absolute 16.82(H) 1.50 - 6.30 x10(3)/mc L CERNER MILLENNIUM Lymph % 6.0(L) 19.0 - 53.0 % CERNER MILLENNIUM Lymphocytes Abs 1.2 1.0 - 3.6 x10(3)/mc L CERNER MILLENNIUM Monocyte % 3.3(L) 4.0 - 13.0 % CERNER MILLENNIUM Monocyte Abs 0.6 0.2 - 1.0 x10(3)/mc L CERNER MILLENNIUM Eos % 0.0 0.0 - 7.0 % CERNER MILLENNIUM Eosinophils Abs 0.0 0.0 - 0.5 x10(3)/mc L CERNER MILLENNIUM Basophil % 0.2 0.0 - 2.0 % CERNER MILLENNIUM Baso Absolute 0.0 0.0 - 0.2 x10(3)/mc L CERNER MILLENNIUM Immature Gran % 2.20(H) 0.00 - 0.66 % CERNER MILLENNIUM Comment: Immature granulocytes(IG's)percentage and absolute count will include metamyelocytes, myelocytes, and promyelocytes. Blood smears from CBC's yielding IG's will be scanned manually for concordance. If this scan disagrees with the automated IG or if promyelocytes are noted, a manual differential will be performed. Immature Gran Absolute 0.42(H) 0.00 - 0.05 x10(3)/mc L CERNER MILLENNIUM Blood specimen (specimen) 03/13/2010 8:40 AM EST 03/13/2010 8:50 AM EST Evaristo Shaffer MD HEMATOLOGY ORDERABLE S CERNER MILLENNIUM * (ABNORMAL) CBC (03/13/2010 8:40 AM EST) White Blood Cell 19.0(H) 4.0 - 10.0 x10(3)/mc L CERNER MILLENNIUM Red Blood Cell 3.39(L) 3.93 - 5.22 x10(6)/mc L CERNER MILLENNIUM Hemoglobin 9.5(L) 11.2 - 15.7 gm/dL CERNER MILLENNIUM Comment:Patient Transfused Hematocrit 29.0(L) 34.0 - 45.0 % CERNER MILLENNIUM Mean Cell Volume 85.5 79.0 - 94.0 fL CERNER MILLENNIUM Mean Cell Hemoglobin 28.0 26.6 - 32.2 pg CERNER MILLENNIUM Mean Cell Hemoglobin Concentration 32.8 32.0 - 36.5 gm/dL CERNER MILLENNIUM Platelet 604(H) 145 - 370 x10(3)/mc L CERNER MILLENNIUM RDW Standard Deviation 49.7(H) 35.0 - 46.0 fL CERNER MILLENNIUM RDW coefficient of variation 16.1(H) 10.9 - 14.4 % CERNER MILLENNIUM Mean Platelet Volume 8.6(L) 9.0 - 12.0 fL CERNER MILLENNIUM Blood specimen (specimen) 03/13/2010 8:40 AM EST 03/13/2010 8:50 AM EST Evaristo Shaffer MD HEMATOLOGY ORDERABLE S Performing Organization Address City/State/[facility] Co de Phone Number [facility] SHANEEN[facility] * VANCOMYCIN, TROUGH (03/12/2010 8:00 PM EST) Vancomycin, Trough 10.3 mg/L C BETHANIEER MILLENNIUM Comment: Therapeutic range for complicated infections such as bacteremia, endocarditis, osteomyelitis, meningitis, and hospital-acquired pneumonia caused by S. aureus: 15-20 mg/L Therapeutic range for other indications: 10-15 mg/L Toxic: >30 mg/L Reference: Vancomycin Therapeutic Monitoring: Review and Recommendations from the ASHP, IDSA and SIDP Task Force. ??Am J Health-Syst Pharm. 2009; 66:82-98 Vanc Tr Ds Date unknown CERN ER MILLENNIUM Vanc Tr Ds Time unknown CERN ER MILLENNIUM Blood specimen (specimen) 03/12/2010 8:00 PM EST 03/12/2010 8:08 PM EST Evaristo Shaffer MD CHEMISTRY ORDERABLES Performing Organization Address [facility] de Phone Number [facility] SHANEAVENIR [facility] * FERRITIN (03/12/2010 2:40 PM EST) Ferritin 371 30 - 400 ng/mL [facility] MILLENNIUM Comment: Pediatric reference ranges not verified [place] [facility] [place] with [place]. Reference ranges for females greater than 50 years of age approach values for men, i.e., 30-400 ng/mL. Blood specimen (specimen) 03/12/2010 2:40 PM EST 03/12/2010 2:47 PM EST Evaristo Shaffer MD CHEMISTRY ORDERABLES Performing Organization Address [facility] Co de Phone Number [facility] * (ABNORMAL) IRON AND TIBC (03/12/2010 5:45 AM EST) Iron 11(L) 30 - 150 mcg/dL [facility] TIBC 148(L) 250 - 450 mcg/dL SELECT [facility] Iron Saturation 7(L) 20 - 50 % CERN ER MILLENNIUM Blood specimen (specimen) 03/12/2010 5:45 AM EST 03/12/2010 6:01 AM EST Evaristo Shaffer MD CHEMISTRY ORDERABLES Performing Organization Address [facility] Co de Phone Number TEMITOPE SIEGELIUM * ELECTROLYTE PANEL (03/12/2010 5:45 AM EST) Sodium 139 135 - 145 mmol/L CERNER MILLENNIUM Potassium 3.5 3.5 - 5.0 mmol/L CERNER MILLENNIUM Comment: Please note: ??Patients with WBC >100,000 may have falsely elevated Potassium levels. ??For accurate Potassium quantification in these patients send serum separator tube (gold top) for subsequent determinations. ??Contact the Clinical Chemistry Laboratory if there are any questions. Chloride 107 98 - 107 mmol/L CERNER MILLENNIUM Carbon Dioxide 23 22 - 31 mmol/L CERNER MILLENNIUM Anion Gap 9 5 - 15 mmol/L CERNER MILLENNIUM Blood specimen (specimen) 03/12/2010 5:45 AM EST 03/12/2010 5:56 AM EST Evaristo Shaffer MD CHEMISTRY ORDERABLES Performing Organization Address [facility] Co de Phone Number TEMITOPE GAUTAM * (ABNORMAL) CREATININE, SERUM (03/12/2010 5:45 AM EST) Creatinine 0.48(L) 0.70 - 1.20 mg/dL CERNER MILLENNIUM Est Glomerular Filtration Rate >60 >=60 CERNER MILLENNIUM Comment: The National Kidney Disease Education Program (NKDEP) has recommended all laboratories report estimated GFR (eGFR) along with plasma creatinine measurements to assist you with recognition of early kidney disease. Caveats: ??Plasma creatinine should be at steady-state (unchanged within the past week). ??Patient age > = 18 years, and for Americans multiply eGFR by 1.2. At present, NKDEP does NOT recommend using the MDRD equation for drug dosing purposes and pharmacists should continue to use their current dosing methods. In addition, numerical eGFR values greater than 60 ml/min/1.73 square meters should be treated as > 60, and not an exact number due to greater inaccuracies at these higher values. Per NKDEP, they classify normal renal function as any GFR >60ml/min/1.73 square meters; chronic kidney disease when GFR <60, and renal failure when GFR <15. ??This calculation may not be valid for patients with atypical muscle mass (very lean or obese), acute renal failure, and in patients with diabetic kidney disease. References: http://nkdep.nih.gov/resources/NKDEP_Suggestn4Labs_0606_508.pdf http://www.kidney.org/professionals/kls/pdf/faq_gfr.pdf Blood specimen (specimen) 03/12/2010 5:45 AM EST 03/12/2010 5:56 AM EST Evaristo Shaffer MD CHEMISTRY ORDERABLES Performing Organization Address [facility] de Phone Number CERNER MILLENNIUM * BUN (03/12/2010 5:45 AM EST) Blood Urea Nitrogen 8 8 - 18 mg/dL CERNER MILLENNIUM Blood specimen (specimen) 03/12/2010 5:45 AM EST 03/12/2010 5:56 AM EST Evaristo Shaffer MD CHEMISTRY ORDERABLES Performing Organization Address [facility] de Phone Number CERNER MILLENNIUM * (ABNORMAL) REFLEX LAB-A-DIFF (03/12/2010 5:45 AM EST) Neutrophil % 92.8(H) 34.0 - 71.0 % CERNER MILLENNIUM Neutrophil Absolute 15.75(H) 1.50 - 6.30 x10(3)/mc L CERNER MILLENNIUM Lymph % 5.5(L) 19.0 - 53.0 % CERNER MILLENNIUM Lymphocytes Abs 0.9(L) 1.0 - 3.6 x10(3)/mc L CERNER MILLENNIUM Monocyte % 1.2(L) 4.0 - 13.0 % CERNER MILLENNIUM Monocyte Abs 0.2 0.2 - 1.0 x10(3)/mc L CERNER [...] metamyelocytes, myelocytes, and promyelocytes. Blood smears from CBC's yielding IG's will be scanned manually for concordance. If this scan disagrees with the automated IG or if promyelocytes are noted, a manual differential will be performed. Immature Gran Absolute 0.07(H) 0.00 - 0.05 x10(3)/mc L CERNER MILLENNIUM Blood specimen (specimen) 03/12/2010 5:45 AM EST 03/12/2010 5:56 AM EST Evaristo Shaffer MD HEMATOLOGY ORDERABLE S CERNER MILLENNIUM * (ABNORMAL) CBC (03/12/2010 5:45 AM EST) White Blood Cell 17.0(H) 4.0 - 10.0 x10(3)/mc L CERNER MILLENNIUM Red Blood Cell 2.71(L) 3.93 - 5.22 x10(6)/mc L CERNER MILLENNIUM Hemoglobin 7.3(L) 11.2 - 15.7 gm/dL CERNER MILLENNIUM Hematocrit 23.7(L) 34.0 - 45.0 % CERNER MILLENNIUM Mean Cell Volume 87.5 79.0 - 94.0 fL CERNER MILLENNIUM Mean Cell Hemoglobin 26.9 26.6 - 32.2 pg CERNER MILLENNIUM Mean Cell Hemoglobin Concentration 30.8(L) 32.0 - 36.5 gm/dL CERNER MILLENNIUM Platelet 598(H) 145 - 370 x10(3)/mc L CERNER MILLENNIUM RDW Standard Deviation 49.4(H) 35.0 - 46.0 fL CERNER MILLENNIUM RDW coefficient of variation 15.6(H) 10.9 - 14.4 % [facility] Mean Platelet Volume 8.4(L) 9.0 - 12.0 fL [facility] MILLENNIUM Blood specimen (specimen) 03/12/2010 5:45 AM EST 03/12/2010 5:56 AM EST Evaristo Shaffer MD HEMATOLOGY ORDERABLE S Performing Organization Address [facility] de Phone Number [facility] * (ABNORMAL) POCT GLUCOMETER ORDER (LAB USE ONLY) (03/11/2010 9:15 PM EST) Glucose, POC 153(H) 70 - 110 mg/dL [facility] Comment: Supplemental ranges: <110 mg/dL before meals <200 mg/dL all other times of the day Blood specimen (specimen) 03/11/2010 9:15 PM EST 03/11/2010 9:15 PM EST Evaristo Shaffer MD POINT OF CARE TEST O RDERABLES Performing Organization Address [facility] de Phone Number [facility] * (ABNORMAL) POCT GLUCOMETER ORDER (LAB USE ONLY) (03/11/2010 6:08 PM EST) Glucose, POC 119(H) 70 - 110 mg/dL [facility] Comment: Supplemental ranges: <110 mg/dL before meals <200 mg/dL all other times of the day Blood specimen (specimen) 03/11/2010 6:08 PM EST 03/11/2010 6:08 PM EST Evaristo Shaffer MD POINT OF CARE TEST O MUMTAZ Performing Organization Address [facility] de Phone Number [facility] * BLOOD CULTURE (03/11/2010 4:25 PM EST) Blood Culture ? Patient Name: KYLEIGH CABALLERO ? Ordered By: EVARISTO SHAFFER ? MR#: [id number] ?LOC: ??3EST ? /Sex: ??1950 (60 years), ? Female ? PROCEDURE: Blood Culture ?SOURCE: Blood ? COLLECTED: 03/11/2010 16:25 ? BODY SITE: Left Arm ? STARTED: 03/11/2010 16:33 ? FINAL REPORT ? Final Report ? Verified:2009 15:05 ? No growth at 5 days. ? PRELIMINARY REPORT ? Preliminary Report ? Verified:2009 23:05 ? No growth at 4 days. ? [facility]IT[facility] SIEGELIUM Blood specimen (specimen) STRUCTURE OF LEFT UPPER LIMB / Unknown 03/11/2010 4:25 PM EST 03/11/2010 4:32 PM EST Evaristo Shaffer MD MICROBIOLOGY - BLOOD ORDERABLES [facility]IT[facility] GAUTAM * URINALYSIS WITH MICROSCOPIC (03/11/2010 12:51 PM EST) Glucose, Urine Dipstick Negative Negative mg/dL CERNER [...] Urine Dipstick Clear Clear CERNER MILLENNIUM Specific [place] Urine Automated 1.008 1.002 - 1.030 CERNER MILLENNIUM Color, Urine Dipstick Yellow Yellow CERNER MILLENNIUM RBC, Urine Not Present 0 - 4 CERNER MILLENNIUM WBC, Urine 1 0 - 5 /HPF CERNER MILLENNIUM Urine specimen (specimen) 03/11/2010 12:51 PM EST 03/11/2010 12:51 PM EST Evaristo Shaffer MD URINE ORDERABLES CERNER MILLENNIUM * BLOOD CULTURE (03/11/2010 12:30 PM EST) Blood Culture ? Patient Name: KYLEIGH CABALLERO ? Ordered By: EVARISTO SHAFFER ? MR#: [id number] ?LOC: ??3EST ? /Sex: ??1950 (60 years), ? Female ? PROCEDURE: Blood Culture ?SOURCE: Blood ? COLLECTED: 03/11/2010 12:30 ? BODY SITE: Left Antecubital ? STARTED: 03/11/2010 12:59 ? FINAL REPORT ? Final Report ? Verified:2009 15:05 ? No growth at 5 days. ? PRELIMINARY REPORT ? Preliminary Report ? Verified:2009 15:05 ? No growth at 4 days. ? [facility] Blood specimen (specimen) ANTECUBITAL REGION STRUCTURE / Unknown 03/11/2010 12:30 PM EST 03/11/2010 12:50 PM EST Evaristo Shaffer MD MICROBIOLOGY - BLOOD ORDERABLES [facility] * URINE CULTURE (03/11/2010 12:25 PM EST) Urine Culture ? Patient Name: KYLEIGH CABALLERO ? Ordered By: EVARISTO SHAFFER ? MR#: [id number] ?LOC: ??PICU ? /Sex: ?? 1 (60 years), ? Female ? PROCEDURE: Urine Culture ?SOURCE: T ICa ? COLLECTED: 03/11/2010 12:25 ? STARTED: 03/11/2010 12:58 ? FINAL REPORT ? Final Report ? Verified: 08:39 ? No growth (Less than 1,000 cfu/ml). ? ____ CERNER MILLENNIUM Urine specimen obtained via indwelling urinary catheter (specimen) 03/11/2010 12:25 PM EST 03/11/2010 12:50 PM EST Evaristo Shaffer MD MICROBIOLOGY - GENER AL ORDERABLES CERNER MILLENNIUM * (ABNORMAL) REFLEX LAB-BLOOD GAS, ARTERIAL (03/11/2010 10:10 AM EST) pH, Arterial 7.44 7.35 - 7.45 CERNER MILLENNIUM PCO2, Arterial 40 35 - 45 mmHg CERNER MILLENNIUM PO2, Arterial 63(L) 85 - 104 mmHg CERNER MILLENNIUM Bicarbonate, Arterial 25.9 20.0 - 26.0 mmol/L CERNER MILLENNIUM Base Excess, Arterial 1.9 -3.0 - 3.0 mmol/L CERNER MILLENNIUM Hgb Blood Gas 8.1(L) 11.2 - 15.7 gm/dL CERNER MILLENNIUM Oxyhemoglobin, Arterial 87.5(L) 94.0 - 97.0 % CERNER MILLENNIUM Carboxyhemoglob in, Arterial 1.3 % CERNER MILLENNIUM Comment: Nonsmokers: ??0.5-1.5% COHB Smokers: ??Variable, but usually less than 10% Toxic: 20 - 30% COHB Lethal: ??Greater than 60% COHB Methemoglobin, Arterial 0.3 <=1.5 % CERNER MILLENNIUM Na Whole Blood 140 135 - 145 mmol/L CERNER MILLENNIUM K Whole Blood 4.1 3.5 - 5.0 mmol/L CERNER MILLENNIUM Comment: Please note: ??Patients with WBC >100,000 may have falsely elevated Potassium levels. ??Contact the Clinical Chemistry Laboratory if there are any questions. ICa Whole Blood 1.15 1.15 - 1.33 mmol/L CERNER MILLENNIUM Comment: Note: ??Total bilirubin higher than 20 mg/dL may lead to falsely low ionized calcium. CL Whole Blood 107 98 - 107 mmol/L [facility] Gluc Whole Bld 119 <=199 mg/dL [facility] Comment:Diabetes: >= 200 mg/ dL plus symptoms. Lactate WB 0.9 0.5 - 2.2 mmol/L [facility] Flow Art 5.0 LPM [facility] Blood Gas Source Arterial [facility] Blood specimen (specimen) 03/11/2010 10:10 AM EST 03/11/2010 10:25 AM EST Evaristo Shaffer MD CHEMISTRY ORDERABLES Performing Organization Address [facility] Co de Phone Number [facility] * REFLEX LAB-SELECTED CELL SCREEN (03/11/2010 9:39 AM EST) Ab Screen Interp Previously identified Anti-E_. No additional alloantibodies detected.* *Due to the presence of alloantibody(ies) additional time is required for preparation of Red Cell Products. See initial antibody identification report for additional information. [facility] Blood specimen (specimen) 03/11/2010 9:39 AM EST 03/11/2010 9:39 AM EST Antony Day MD BLOOD BANK LAB ORDER IGOR Performing Organization Address [facility] Co de Phone Number [facility] * REFLEX LAB-ABORH TYPE MANUAL (03/11/2010 9:39 AM EST) Expires at [id number] on: [id number] [facility] ABORH Type A Pos [facility] Blood specimen (specimen) 03/11/2010 9:39 AM EST 03/11/2010 9:39 AM EST Antony Day MD BLOOD BANK LAB ORDER IGOR Performing Organization Address [facility] Co de Phone Number [facility] * PHOSPHORUS (03/11/2010 9:20 AM EST) Phosphorus 4.5 2.5 - 4.5 mg/dL CERNER MILLENNIUM Blood specimen (specimen) 03/11/2010 9:20 AM EST 03/11/2010 9:28 AM EST Antony Day MD CHEMISTRY ORDERABLES Performing Organization Address [facility] de Phone Number CERNER MILLENNIUM * MAGNESIUM (03/11/2010 9:20 AM EST) Magnesium 0.87 0.69 - 1.07 mmol/L CERNER MILLENNIUM Blood specimen (specimen) 03/11/2010 9:20 AM EST 03/11/2010 9:28 AM EST Antony Day MD CHEMISTRY ORDERABLES Performing Organization Address [facility] Phone Number CERNER MILLENNIUM * (ABNORMAL) HEPATIC FUNCTION PANEL (03/11/2010 9:20 AM EST) Protein, Total 7.1 6.4 - 8.3 gm/dL CERNER MILLENNIUM Albumin 2.9(L) 3.2 - 5.2 gm/dL CERNER MILLENNIUM Aspartate Aminotransferase 19 0 - 30 unit/L CERNER MILLENNIUM Alanine Aminotransferase 10 0 - 30 unit/L CERNER MILLENNIUM Alkaline Phosphatase 87 40 - 104 unit/L CERNER MILLENNIUM Bilirubin, Total 0.2 0.2 - 1.3 mg/dL CERNER MILLENNIUM Bilirubin, Direct 0.1 0.0 - 0.3 mg/dL CERNER MILLENNIUM Blood specimen (specimen) 03/11/2010 9:20 AM EST 03/11/2010 9:28 AM EST Antony Day MD CHEMISTRY ORDERABLES Performing Organization Address [facility] Co de Phone Number CERNER MILLENNIUM * ELECTROLYTE PANEL (03/11/2010 9:20 AM EST) Sodium 136 135 - 145 mmol/L CERNER MILLENNIUM Potassium 3.9 3.5 - 5.0 mmol/L CERNER MILLENNIUM Comment: Please note: ??Patients with WBC >100,000 may have falsely elevated Potassium levels. ??For accurate Potassium quantification in these patients send serum separator tube (gold top) for subsequent determinations. ??Contact the Clinical Chemistry Laboratory if there are any questions. Chloride 100 98 - 107 mmol/L CERNER MILLENNIUM Carbon Dioxide 26 22 - 31 mmol/L CERNER MILLENNIUM Anion Gap 10 5 - 15 mmol/L CERNER MILLENNIUM Blood specimen (specimen) 03/11/2010 9:20 AM EST 03/11/2010 9:28 AM EST Antony Day MD CHEMISTRY ORDERABLES CERNER MILLENNIUM * (ABNORMAL) CREATININE, SERUM (03/11/2010 9:20 AM EST) Creatinine 0.67(L) 0.70 - 1.20 mg/dL CERNER MILLENNIUM Est Glomerular Filtration Rate >60 >=60 CERNER MILLENNIUM Comment: The National Kidney Disease Education Program (NKDEP) has recommended all laboratories report estimated GFR (eGFR) along with plasma creatinine measurements to assist you with recognition of early kidney disease. Caveats: ??Plasma creatinine should be at steady-state (unchanged within the past week). ??Patient age > = 18 years, and for Americans multiply eGFR by 1.2. At present, NKDEP does NOT recommend using the MDRD equation for drug dosing purposes and pharmacists should continue to use their current dosing methods. In addition, numerical eGFR values greater than 60 ml/min/1.73 square meters should be treated as > 60, and not an exact number due to greater inaccuracies at these higher values. Per NKDEP, they classify normal renal function as any GFR >60ml/min/1.73 square meters; chronic kidney disease when GFR <60, and renal failure when GFR <15. ??This calculation may not be valid for patients with atypical muscle mass (very lean or obese), acute renal failure, and in patients with diabetic kidney disease. References: http://nkdep.nih.gov/resources/NKDEP_Suggestn4Labs_0606_508.pdf http://www.kidney.org/professionals/kls/pdf/faq_gfr.pdf Blood specimen (specimen) 03/11/2010 9:20 AM EST 03/11/2010 9:28 AM EST Antony Day MD CHEMISTRY ORDERABLES Performing Organization Address [facility] Phone Number [facility] * CALCIUM (03/11/2010 9:20 AM EST) Calcium 8.5 8.5 - 10.5 mg/dL [facility] Blood specimen (specimen) 03/11/2010 9:20 AM EST 03/11/2010 9:28 AM EST Antony Day MD CHEMISTRY ORDERABLES Performing Organization Address [facility] Phone Number [facility] * BUN (03/11/2010 9:20 AM EST) Blood Urea Nitrogen 10 8 - 18 mg/dL [facility] Blood specimen (specimen) 03/11/2010 9:20 AM EST 03/11/2010 9:28 AM EST Antony Day MD CHEMISTRY ORDERABLES Performing Organization Address [facility] Phone Number [facility] * APTT (03/11/2010 9:20 AM EST) Partial Thromboplastin Time 32 25 - 37 sec [facility] Comment: Recommended therapeutic PTT range for full dose unfractionated heparin is 80-114 seconds. Blood specimen (specimen) 03/11/2010 9:20 AM EST 03/11/2010 9:20 AM EST Antony Day MD HEMATOLOGY ORDERABLE S Performing Organization Address [facility] Phone Number [facility] * (ABNORMAL) PROTIME-INR (03/11/2010 9:20 AM EST) Prothrombin Time 15.2(H) 12.3 - 14.7 sec CERNER MILLENNIUM Comment: [facility] Transfusion Committee Guidelines: INR less than 2.0, PTT less than OR equal to 43.5 seconds, or Fibrinogen greater than or equal to 100 mg/dl indicate adequate procoagulant activity for hemostasis in patients without underlying bleeding disorders. International Normalization Ratio 1.2(H) 0.9 - 1.1 CERNER MILLENNIUM Blood specimen (specimen) 03/11/2010 9:20 AM EST 03/11/2010 9:20 AM EST Antony Day MD HEMATOLOGY ORDERABLE S [facility] MILLENNIUM * (ABNORMAL) REFLEX LAB-A-DIFF (03/11/2010 9:20 AM EST) Neutrophil % 86.5(H) 34.0 - 71.0 % CERNER MILLENNIUM Neutrophil Absolute 12.45(H) 1.50 - 6.30 x10(3)/mc L CERNER MILLENNIUM Lymph % 6.5(L) 19.0 - 53.0 % CERNER MILLENNIUM Lymphocytes Abs 0.9(L) 1.0 - 3.6 x10(3)/mc L CERNER MILLENNIUM Monocyte % 5.2 4.0 - 13.0 % CERNER MILLENNIUM Monocyte Abs 0.8 0.2 - 1.0 x10(3)/mc L CERNER MILLENNIUM Eos % 1.0 0.0 - 7.0 % CERNER MILLENNIUM Eosinophils Abs 0.1 0.0 - 0.5 x10(3)/mc L CERNER MILLENNIUM Basophil % 0.2 0.0 - 2.0 % CERNER MILLENNIUM Baso Absolute 0.0 0.0 - 0.2 x10(3)/mc L CERNER MILLENNIUM Immature Gran % 0.60 0.00 - 0.66 % CERNER MILLENNIUM Comment: Immature granulocytes(IG's)percentage and absolute count will include metamyelocytes, myelocytes, and promyelocytes. Blood smears from CBC's yielding IG's will be scanned manually for concordance. If this scan disagrees with the automated IG or if promyelocytes are noted, a manual differential will be performed. Immature Gran Absolute 0.09(H) 0.00 - 0.05 x10(3)/mc L CERNER MILLENNIUM Blood specimen (specimen) 03/11/2010 9:20 AM EST 03/11/2010 9:20 AM EST Antony Day MD HEMATOLOGY ORDERABLE S CERNER MILLENNIUM * (ABNORMAL) CBC (03/11/2010 9:20 AM EST) White Blood Cell 14.4(H) 4.0 - 10.0 x10(3)/mc L CERNER MILLENNIUM Red Blood Cell 2.81(L) 3.93 - 5.22 x10(6)/mc L CERNER MILLENNIUM Hemoglobin 7.9(L) 11.2 - 15.7 gm/dL CERNER MILLENNIUM Hematocrit 24.9(L) 34.0 - 45.0 % CERNER MILLENNIUM Mean Cell Volume 88.6 79.0 - 94.0 fL CERNER MILLENNIUM Mean Cell Hemoglobin 28.1 26.6 - 32.2 pg CERNER MILLENNIUM Mean Cell Hemoglobin Concentration 31.7(L) 32.0 - 36.5 gm/dL CERNER MILLENNIUM Platelet 631(H) 145 - 370 x10(3)/mc L CERNER MILLENNIUM RDW Standard Deviation 52.3(H) 35.0 - 46.0 fL CERNER MILLENNIUM RDW coefficient of variation 16.1(H) 10.9 - 14.4 % CERNER MILLENNIUM Mean Platelet Volume 8.7(L) 9.0 - 12.0 fL CERNER MILLENNIUM Blood specimen (specimen) 03/11/2010 9:20 AM EST 03/11/2010 9:20 AM EST Antony Day MD HEMATOLOGY ORDERABLE S CERNER MILLENNIUM documented in this encounter Visit Diagnoses Not on filedocumented in this encounter Care Teams Transportation Job Titles Relationship Specialty Start Date End Date Nayana Blankenship MD [address] [place] [address] PCP - General 03/09/10 documented as of this encounter
--- OUTSIDE RECORDS SUMMARY | 2023-12-15 06:18 | XMS_ITS | Encounter Summary ---
[place] [address] Care Team Providers Care Clothes Presser Name Role Phone Nayana Blankenship MD Primary Care Provider Encounter Details Date Type Department Care Team (Late st Contact Info) Description 03/26/2010 9:50 AM EST Procedure visit [place] [address] Social History Tobacco Use Types Packs/Day Years Used Date Smoking Tobacco: Never Assessed Sex and Gender Information Value Date Recorded Sex Assigned at Not on file Gender Identity Not on file Sexual Orientation Not on file documented as of this encounter Plan of Treatment Not on file documented as of this encounter Visit Diagnoses Not on filedocumented in this encounter Care Teams Clothes Presser Relationship Specialty Start Date End Date Nayana Blankenship MD [address] [place] [address] PCP - General 03/09/10 documented as of this encounter
--- OUTSIDE RECORDS SUMMARY | 2023-12-15 06:18 | XMS_ITS | Encounter Summary ---
[place] [address] Care Team Providers Care Deputy Insurance Commissioner Name Role Phone Nayana Blankenship MD Primary Care Provider [phone] Encounter Details Date Type Department Care Team (Late st Contact Info) Description 04/07/2010 12:00 PM EST Procedure visit [place] [address] CL[address], DR JORDAN Social History Tobacco Use Types Packs/Day Years Used Date Smoking Tobacco: Never Assessed Sex and Gender Information Value Date Recorded Sex Assigned at Not on file Gender Identity Not on file Sexual Orientation Not on file documented as of this encounter Plan of Treatment Not on file documented as of this encounter Visit Diagnoses Not on filedocumented in this encounter Care Teams Deputy Insurance Commissioner Relationship Specialty Start Date End Date Nayana Blankenship MD [address] [place] [address] PCP - General 03/09/10 documented as of this encounter
--- OUTSIDE RECORDS SUMMARY | 2023-12-15 06:18 | XMS_ITS | Encounter Summary ---
Author Organization [facility] Address [facility] [place] [address] Care Team Providers Care Monumental Stonemason Name Role Phone Nayana Blankenship MD Primary Care Provider [phone] Encounter Details Date Type Department Care Team (Late st Contact Info) Description 04/22/2010 1:30 PM EST Follow[place] [address] Abdulaziz Baltazar MD [facility] [address] Discharge Disposition: Home Social History Tobacco Use [...] on filedocumented in this encounter Care Teams Monumental Stonemason Relationship Specialty Start Date End Date Nayana Blankenship MD [address] [place], [place] [address] PCP - General 03/09/10 documented as of this encounter
--- OUTSIDE RECORDS SUMMARY | 2023-12-15 06:18 | XMS_ITS | Encounter Summary ---
Author Organization [facility] Address [facility] [place] [address] Care Team Providers Care Furniture Manager Name Role Phone Nayana Blankenship MD Primary Care Provider [phone] Encounter Details Date Type Department Care Team (Late st Contact Info) Description 02/22/2010 Orders [place] [address] Sander Pressley MD [facility] [place] [address] Social History Tobacco Use Types Packs/Day Years Used Date Smoking Tobacco: Never Assessed Sex and Gender Information Value Date Recorded Sex Assigned at Not on file Gender Identity Not on file Sexual Orientation Not on file documented as of this encounter Plan of Treatment Not on file documented as of this encounter Procedures Procedure Name Priority Date/Time Associated Diagnosis Comments SURGICAL PATHOLOGY REPORT Routine 02/25/2010 11:14 AM EST documented in this encounter Results * Surgical Pathology Report (02/25/2010 11:14 AM EST) Surgical Pathology Report [id number] ? [facility]; B The signing pathologist has (i) examined the relevant preparation(s) for the specimen(s) and (ii) rendered or confirmed the diagnosis(es). . ?Pathology Surgical Pathology Final Report Clinical Information Specimen Submitted: A - Fibrous peel left lung Clinical History: Recurrent complicated pneumonia, left-sided adhesions Clinical Diagnosis: Same Gross Description Labeled/Fixative : ? Fibrous peel left lung, fresh. Qty/Size/Weight: ?Multiple, aggregating 3.0 x 3.0 x 2.0 cm. Tissue Description: ?? Multiple meza-red fragments of soft tissue and lung ?pleura. ??The pleural surface is red and hemorrhagic. ??The deep surface appears pink, soft, and spongy. ??The specimen is serially sectioned and reveals a similarly meza, homogenous parenchyma. Sections/Process ing: ??The serial sections are submitted entirely in ?(A1-A4). ??(T4) ??aje/DPN Microscopic Description Slides reviewed, microscopic description not recorded. Diagnosis Pleura, left lung, fibrous peel: ?? Acute fibrinous pleuritis with acute suppurative inflammation - see Comment. CR-0 02/26/10 VMS 02/26/10 Verified by: ? Black DO, Myra Mujica. ?Pathologist ?(Electronic Signature) The attending pathologist whose signature appears on this report has reviewed all diagnostic slides and has edited the gross and/or microscopic portion of the report in rendering the final pathologic diagnosis. Comment Correlation with clinical microbiology cultures recommended. TEMITOPE GAUTAM 02/25/2010 11:1 4 AM EST Sander Pressley MD PATHOLOGY/CYTOLOGY O RDERABLES TEMITOPE GAUTAM documented in this encounter Visit Diagnoses Not on filedocumented in this encounter Care Teams Furniture Manager Relationship Specialty Start Date End Date Nayana Blankenship MD [address] [place] [address] PCP - General 03/09/10 documented as of this encounter
--- OUTSIDE RECORDS SUMMARY | 2023-12-15 06:19 | XMS_ITS ---
Author Organization Unknown Address [address] [place] [phone] Phone Care Team Providers Care Car Chaser Name Role Phone FRANK Mujica MD Attending Unavailable CONI STANFORD Primary Unavailable Immunization Immunization Date Status Additional Notes Code Code System pneumococcal, unspecified formulation 02/27/2013 Completed 109 CVX Influenza, seasonal, injectable, preservative free 12/31/2012 Completed 140 CVX COVID-19, mRNA, LNP-S, PF, 1 00 mcg/0.5mL dose or 50 mcg/0.25mL dose 06/22/2020 Completed 207 CVX COVID-19, mRNA, LNP-S, PF, 1 00 mcg/0.5mL dose or 50 mcg/0.25mL dose 07/20/2020 Completed 207 CVX Social History Type Status Start Date End Date Code Code Syst em Smoking History Former smoker 04/17/19985159 2527754 SNOMED CT Sex Female Medications Medication Start Date End Date Route Frequency Dose Code Code System Medication Instructions Home Meds Multivitamin Oral Tablet 06/25/2015 Unknown ORAL DAILY 1 TABLET 6410133 RxNorm TAKE 1 TABLET ORAL DAILY Acetaminophen 500MG Oral Tablet 11/15/2020 04/15/20 23 ORAL NEEDED 500 MILLIGRAMS 759315 RxNorm TAKE 500 MILLIGRAMS ORAL NEEDED Amitriptyline 25MG Oral Tablet 11/15/2020 04/15/20 23 ORAL EVERY EVENING 25 MILLIGRAMS 506082 RxNorm TAKE 25 MILLIGRAMS ORAL EVERY EVENING Azithromycin 250MG Oral Tablet 11/15/2020 04/15/20 23 ORAL DAILY 250 MILLIGRAMS 227492 RxNorm TAKE 250 MILLIGRAMS ORAL DAILY Calcium 600 MG Oral Tablet 11/15/2020 04/15/20 23 ORAL DAILY 600 MG 479239 RxNorm TAKE 600 MG ORAL DAILY Diclofenac Sodium 1% Topical application Gel/Jelly 11/15/2020 04/15/20 23 TOPICAL APPLICATI ON NEEDED TWICE DAILY 1 APPL 780617 RxNorm 1 APPL TOPICAL APPLICATIO N NEEDED TWICE DAILY Docusate Sodium 100MG Oral Capsule, Liquid Filled 11/15/2020 04/15/20 23 ORAL TWICE A DAY 100 MILLIGRAMS 2668551 RxNorm TAKE 100 MILLIGRAMS ORAL TWICE A DAY Donepezil HCl 10MG Oral Tablet 11/15/2020 Unknown ORAL DAILY 10 MILLIGRAMS 524390 RxNorm TAKE 10 MILLIGRAMS ORAL DAILY Fexofenadine HCl 180MG Oral Tablet 11/15/2020 Unknown ORAL DAILY 180 MILLIGRAMS 199423 RxNorm TAKE 180 MILLIGRAMS ORAL DAILY Fluticasone Propionate 0.05MG/Actuati on Nasal [place] 11/15/2020 04/15/20 23 NASAL TWICE A DAY 1 SPRAY 4433992 RxNorm SPRAY 1 SPRAY NASAL TWICE A DAY Ibuprofen 200MG Oral Tablet 11/15/2020 04/15/20 23 ORAL NEEDED TWICE DAILY 600 MILLIGRAMS 107626 RxNorm TAKE 600 MILLIGRAMS ORAL NEEDED TWICE DAILY Imitrex 100MG Oral Tablet 11/15/2020 04/15/20 23 ORAL NEEDED 100 MILLIGRAMS 904419 RxNorm TAKE 100 MILLIGRAMS ORAL NEEDED Ipratropium [place] rol Sulfate 0.5MG/3ML-3MG/ 3ML Inhalation Solution 11/15/2020 04/15/20 23 INHALATIO N NEEDED TWICE DAILY 1 UNIT 1320542 RxNorm 1 UNIT INHALATION NEEDED TWICE DAILY Melatonin 10 MG Oral Capsule 11/15/2020 04/15/20 23 ORAL BEDTIME 10 MG 418818 RxNorm TAKE 10 MG ORAL BEDTIME Mirtazapine 15MG Oral Tablet 11/15/2020 04/15/20 23 ORAL BEDTIME 15 MILLIGRAMS 863555 RxNorm TAKE 15 MILLIGRAMS ORAL BEDTIME Omeprazole 40MG Oral Capsule, Delayed Release 11/15/2020 Unknown ORAL DAILY 40 MILLIGRAMS 836754 RxNorm TAKE 40 MILLIGRAMS ORAL DAILY PARoxetine HCl 20MG Oral Tablet 11/15/2020 04/15/20 23 ORAL DAILY 20 MILLIGRAMS 6378298 RxNorm TAKE 20 MILLIGRAMS ORAL DAILY Senna 8.6MG Oral Tablet 11/15/2020 04/15/20 23 ORAL NEEDED AT BEDTIME 8.6 MILLIGRAMS 332483 RxNorm TAKE 8.6 MILLIGRAMS ORAL NEEDED AT BEDTIME Singulair 10MG Oral Tablet 11/15/2020 04/15/20 23 ORAL EVERY EVENING 10 MILLIGRAMS 973511 RxNorm TAKE 10 MILLIGRAMS ORAL EVERY EVENING Trelegy Ellipta NA Inhalation Powder 11/15/2020 04/15/20 23 INHALATIO N DAILY 1 PUFF 8851390 RxNorm 1 PUFF INHALATION DAILY Vitamin D 2000 IU Oral Tablet 11/15/2020 04/15/20 23 ORAL WEEKLY 2000 IU 829551 RxNorm TAKE 2000 IU ORAL WEEKLY amLODIPine Besylate 10MG Oral Tablet 11/15/2020 Unknown ORAL DAILY 10 MILLIGRAMS 776605 RxNorm TAKE 10 MILLIGRAMS ORAL DAILY busPIRone 10MG Oral Tablet 11/15/2020 Unknown ORAL THREE TIMES A DAY 20 MILLIGRAMS 866770 RxNorm TAKE 20 MILLIGRAMS ORAL THREE TIMES A DAY predniSONE 20MG Oral Tablet 11/15/2020 04/15/20 23 ORAL DAILY 3 TABLET 844030 RxNorm TAKE 3 TABLET ORAL DAILY LORazepam 0.5MG Oral Tablet 04/17/2023 Unknown ORAL EVERY 6 HOURS 1 TABLET 864404 RxNorm TAKE 1 TABLET ORAL EVERY 6 [...] 1726 0408 21AD 5641 023 Active FDA [id number] 23 07/23/2025 FLEX SHOULD ER SYSTEM [id number] Total reverse shoulder prosthesis 010 7003 8694 4543 1725 1213 21CZ 3920 3310 36 Active FDA [id number] 03/29/2025 Aequal is(TM) Ascend (TM) Flex [id number] Total reverse shoulder prosthesis 0103 7003 8694 1054 1725 1211 2191 19AV 009 Active FDA [id number] 09 03/27/2025 FLEX SHOULD ER SYSTEM [id number] Reverse shoulder prosthesis head 0100 8468 3206 1891 1726 0325 21CZ 5121 0570 10 Active FDA [id number] 53802 07/09/2025 AEQUAL IS(TM) PerFOR M Revers ed [id number] Reverse shoulder prosthesis base plate 0100 8468 3206 1884 1726 0611 2174 89AW 015 Active FDA [id number] W015 09/25/2025 AEQUAL IS(TM) PerFOR M Revers ed [id number] Orthopaedi c bone screw, non-bioabs orbable, sterile 0100 8468 3206 2072 1726 0107 2132 33AW 004 Active FDA [id number] 04 04/23/2025 AEQUAL IS(TM) PerFOR M Revers ed [id number] Problems Problem Start Date Resolved Date Status Code Code System OBSTRUCTIVE CHRONIC BRONCHITIS WITH EXACERBATION active 893954804 SNOMED-CT ACUTE AND CHRONIC RESPIRATOR Y FAILURE active 14519738 SNOMED-CT COPD active 00148048 SNOMED-CT PLEURAL EFFUSION active 09154990 SNO MED-CT HEMOPTYSIS, UNSPECIFIED 11/13/2020 resolved 25720 005 SNOMED-CT SEPTICEMIA NOS 11/13/2020 resolved SNOM ED-CT OTHER AND UNSPECIFIED HYPERLIPIDEMIA 11/13/2020 resolved 81296619 SNOMED-CT LUMBAGO 11/13/2020 resolved 520400223 SNOMED-CT TRANSIENT ALTERED MENTAL STATUS 11/13/2020 resolved 772287488 SNOMED-CT CANDIDIASIS OF MOUTH 11/13/2020 resolved 16784173 SNOMED-CT CLOSED FRACTURE OF ONE RIB 11/13/2020 resolved 45 560084 SNOMED-CT PNEUMONIA 11/13/2020 resolved SNOMED-CT HYPOSMOLALITY AND/OR HYPONATREMIA 11/13/2020 resolved 255502456 SNOMED-CT Allergies and Adverse Reactions Allergy Substance Reaction Severity Start Date Concern Status Code Code System TRAZODONE Hallucinations (SNOMED-CT: 3810636) Moderate Active 31559 RxNorm LISINOPRIL Cough (SNOMED-CT: 15673058) Active 54811 RxNorm FOSAMAX Moderate Active 625457 RxNorm Plan of Treatment Pre-Op Testing 11/06/2020 Pre-Op Covid-19 Testing 03/21/2020 BONE DENSITY DEXA SPINE & HIP 3 PRE-OP COVID-19 TESTING 01/10/2022 MM SCREEN BILAT 10/22/2021 CT CHEST W/O CONTRAST 05/31/2021 NM MPI STR/RST 07/22/2021 Encounters Encounter Diagnosis Start Date Code Code Sys tem Idiopathic osteoarthritis 10/15/2020 547597278 SN OMED-CT Personal Care Team Section Performer Name Performer Role Active Date Inactive Da te
--- OUTSIDE RECORDS SUMMARY | 2023-12-15 06:19 | XMS_ITS ---
Author Organization Unknown Address [address] [place] [phone] Phone Care Team Providers Care Hay Buckler Name Role Phone JESSICA MORRISSEY MD Attending Unavailable VALERIE REILLY Unavailable CONI STANFORD Primary Unavailable Immunization Immunization Date Status Additional Notes Code Code System pneumococcal, unspecified formulation 02/27/2013 Completed 109 CVX Influenza, seasonal, injectable, preservative free 12/31/2012 Completed 140 CVX COVID-19, mRNA, LNP-S, PF, 1 00 mcg/0.5mL dose or 50 mcg/0.25mL dose 06/22/2020 Completed 207 CVX COVID-19, mRNA, LNP-S, PF, 1 00 mcg/0.5mL dose or 50 mcg/0.25mL dose 07/20/2020 Completed 207 CVX Results CHEST PA AND LATERAL 2V - Co mpleted: 11/20/2020 04:21 LOINC: Compared to 11/14/20. Heart s ize unchanged. Mediastinum unchanged. Tubing is noted over the lower left lung field. Appearance of the right lung base exhibits minimal if any significant change from the prior study, and there is also a small pleural effusion again evident. Bilateral shoulder prostheses are again noted. There is also some infiltrate in the right upper lobe again noted. IMPRESSION: Persistent elevated right hemidiaphragm with mild infiltrate and atelectasis in the right lung base. Probable small right pleural effusion. Please also refer to recent chest CT scan report of 11/13/20. Dictated by: MEREDITH FREY M.D. RADIOLOGIST Transcribed by: DON 11/20/20/08:23 D 11/20/2020 07:38:50 [id number] Electronically Reviewed and Signed By: ZAKIA FREY M.D. RADIOLOGIST 11/20/20 14:25 Copy for: JESSICA MORRISSEY MD via modem DISCHARGED Social History Type Status Start Date End Date Code Code Syst em Smoking History Former smoker 04/17/19980364 0140244 SNOMED CT Sex Female Medications Medication Start Date End Date Route Frequency Dose Code Code System Medication Instructions Home Meds Multivitamin Oral Tablet 06/25/2015 Unknown ORAL DAILY 1 TABLET 6325875 RxNorm TAKE 1 TABLET ORAL DAILY Acetaminophen 500MG Oral Tablet 11/15/2020 04/15/20 23 ORAL NEEDED 500 MILLIGRAMS 189827 RxNorm TAKE 500 MILLIGRAMS ORAL NEEDED Amitriptyline 25MG Oral Tablet 11/15/2020 04/15/20 23 ORAL EVERY EVENING 25 MILLIGRAMS 141829 RxNorm TAKE 25 MILLIGRAMS ORAL EVERY EVENING Azithromycin 250MG Oral Tablet 11/15/2020 04/15/20 23 ORAL DAILY 250 MILLIGRAMS 489340 RxNorm TAKE 250 MILLIGRAMS ORAL DAILY Calcium 600 MG Oral Tablet 11/15/2020 04/15/20 23 ORAL DAILY 600 MG 437008 RxNorm TAKE 600 MG ORAL DAILY Diclofenac Sodium 1% Topical application Gel/Jelly 11/15/2020 04/15/20 23 TOPICAL APPLICATI ON NEEDED TWICE DAILY 1 APPL 405064 RxNorm 1 APPL TOPICAL APPLICATIO N NEEDED TWICE DAILY Docusate Sodium 100MG Oral Capsule, Liquid Filled 11/15/2020 04/15/20 23 ORAL TWICE A DAY 100 MILLIGRAMS 9902005 RxNorm TAKE 100 MILLIGRAMS ORAL TWICE A DAY Donepezil HCl 10MG Oral Tablet 11/15/2020 Unknown ORAL DAILY 10 MILLIGRAMS 847826 RxNorm TAKE 10 MILLIGRAMS ORAL DAILY Fexofenadine HCl 180MG Oral Tablet 11/15/2020 Unknown ORAL DAILY 180 MILLIGRAMS 102707 RxNorm TAKE 180 MILLIGRAMS ORAL DAILY Fluticasone Propionate 0.05MG/Actuati on Nasal [place] 11/15/2020 04/15/20 23 NASAL TWICE A DAY 1 SPRAY 7889919 RxNorm SPRAY 1 SPRAY NASAL TWICE A DAY Ibuprofen 200MG Oral Tablet 11/15/2020 04/15/20 23 ORAL NEEDED TWICE DAILY 600 MILLIGRAMS 588853 RxNorm TAKE 600 MILLIGRAMS ORAL NEEDED TWICE DAILY Imitrex 100MG Oral Tablet 11/15/2020 04/15/20 23 ORAL NEEDED 100 MILLIGRAMS 447113 RxNorm TAKE 100 MILLIGRAMS ORAL NEEDED Ipratropium [place] rol Sulfate 0.5MG/3ML-3MG/ 3ML Inhalation Solution 11/15/2020 04/15/20 23 INHALATIO N NEEDED TWICE DAILY 1 UNIT 8184443 RxNorm 1 UNIT INHALATION NEEDED TWICE DAILY Melatonin 10 MG Oral Capsule 11/15/2020 04/15/20 23 ORAL BEDTIME 10 MG 093712 RxNorm TAKE 10 MG ORAL BEDTIME Mirtazapine 15MG Oral Tablet 11/15/2020 04/15/20 23 ORAL BEDTIME 15 MILLIGRAMS 267075 RxNorm TAKE 15 MILLIGRAMS ORAL BEDTIME Omeprazole 40MG Oral Capsule, Delayed Release 11/15/2020 Unknown ORAL DAILY 40 MILLIGRAMS 337550 RxNorm TAKE 40 MILLIGRAMS ORAL DAILY PARoxetine HCl 20MG Oral Tablet 11/15/2020 04/15/20 23 ORAL DAILY 20 MILLIGRAMS 9485503 RxNorm TAKE 20 MILLIGRAMS ORAL DAILY Senna 8.6MG Oral Tablet 11/15/2020 04/15/20 23 ORAL NEEDED AT BEDTIME 8.6 MILLIGRAMS 818343 RxNorm TAKE 8.6 MILLIGRAMS ORAL NEEDED AT BEDTIME Singulair 10MG Oral Tablet 11/15/2020 04/15/20 23 ORAL EVERY EVENING 10 MILLIGRAMS 910647 RxNorm TAKE 10 MILLIGRAMS ORAL EVERY EVENING Trelegy Ellipta NA Inhalation Powder 11/15/2020 04/15/20 23 INHALATIO N DAILY 1 PUFF 6112777 RxNorm 1 PUFF INHALATION DAILY Vitamin D 2000 IU Oral Tablet 11/15/2020 04/15/20 23 ORAL WEEKLY 2000 IU 221674 RxNorm TAKE 2000 IU ORAL WEEKLY amLODIPine Besylate 10MG Oral Tablet 11/15/2020 Unknown ORAL DAILY 10 MILLIGRAMS 278398 RxNorm TAKE 10 MILLIGRAMS ORAL DAILY busPIRone 10MG Oral Tablet 11/15/2020 Unknown ORAL THREE TIMES A DAY 20 MILLIGRAMS 467414 RxNorm TAKE 20 MILLIGRAMS ORAL THREE TIMES A DAY predniSONE 20MG Oral Tablet 11/15/2020 04/15/20 23 ORAL DAILY 3 TABLET 787845 RxNorm TAKE 3 TABLET ORAL DAILY LORazepam [...] 1726 0408 21AD 5641 023 Active FDA [id number] 23 07/23/2025 FLEX SHOULD ER SYSTEM [id number] Total reverse shoulder prosthesis 0103 7003 8694 4543 1725 1213 21CZ 3920 3310 36 Active FDA [id number] 43488 03/29/2025 Aequal is(TM) Ascend (TM) Flex [id number] Total reverse shoulder prosthesis 0103 7003 8694 1054 1725 1211 2191 19AV 009 Active FDA [id number] 09 03/27/2025 FLEX SHOULD ER SYSTEM [id number] Reverse shoulder prosthesis head 0100 8468 3206 1891 1726 0325 21CZ 5121 0570 10 Active FDA [id number] 33085 07/09/2025 AEQUAL IS(TM) PerFOR M Revers ed [id number] Reverse shoulder prosthesis base plate 0100 8468 3206 1884 1726 0611 2174 89AW 015 Active FDA [id number] W015 09/25/2025 AEQUAL IS(TM) PerFOR M Revers ed [id number] Orthopaedi c bone screw, non-bioabs orbable, sterile 0100 8468 3206 2072 1726 0107 2132 33AW 004 Active FDA [id number] 04 04/23/2025 AEQUAL IS(TM) PerFOR M Revers ed GEW141 Problems Problem Start Date Resolved Date Status Code Code System OBSTRUCTIVE CHRONIC BRONCHITIS WITH EXACERBATION active 014757040 SNOMED-CT ACUTE AND CHRONIC RESPIRATOR Y FAILURE active 65032183 SNOMED-CT COPD active 72308210 SNOMED-CT PLEURAL EFFUSION active 76455545 SNO MED-CT HEMOPTYSIS, UNSPECIFIED 11/13/2020 resolved 28420 005 SNOMED-CT SEPTICEMIA NOS 11/13/2020 resolved SNOM ED-CT OTHER AND UNSPECIFIED HYPERLIPIDEMIA 11/13/2020 resolved 87873780 SNOMED-CT LUMBAGO 11/13/2020 resolved 906431478 SNOMED-CT TRANSIENT ALTERED MENTAL STATUS 11/13/2020 resolved 546632851 SNOMED-CT CANDIDIASIS OF MOUTH 11/13/2020 resolved 87140176 SNOMED-CT CLOSED FRACTURE OF ONE RIB 11/13/2020 resolved 45 018620 SNOMED-CT PNEUMONIA 11/13/2020 resolved SNOMED-CT HYPOSMOLALITY AND/OR HYPONATREMIA 11/13/2020 resolved 792185931 SNOMED-CT Allergies and Adverse Reactions Allergy Substance Reaction Severity Start Date Concern Status Code Code System TRAZODONE Hallucinations (SNOMED-CT: 6458283) Moderate Active 97155 RxNorm LISINOPRIL Cough (SNOMED-CT: 98074502) Active 76653 RxNorm FOSAMAX Moderate Active 224752 RxNorm Plan of Treatment Pre-Op Testing 11/06/2020 Pre-Op Covid-19 Testing 03/21/2020 BONE DENSITY DEXA SPINE & HIP PRE-OP COVID-19 TESTING 01/10/2022 MM SCREEN BILAT 10/22/2021 CT CHEST W/O CONTRAST 05/31/2021 NM MPI STR/RST 07/22/2021 Encounters Encounter Diagnosis Start Date Code Code Sys tem Multiple fractures of ribs, right side, initial encounter for closed fracture 11/19/2020 SNOMED-CT Personal Care Team Section Performer Name Performer Role Active Date Inactive Da te
--- OUTSIDE RECORDS SUMMARY | 2023-12-15 06:19 | XMS_ITS | Encounter Summary ---
Author Organization [facility] Address [facility] [place] [address] Care Team Providers Care Tableau Developer Name Role Phone Nayana Blankenship MD Primary Care Provider [phone] Encounter Details Date Type Department Care Team (Late st Contact Info) Description 02/22/2010 [place] [address] Pro Mazariegos MD [facility] GENERAL [place] [address] Social History Tobacco Use Types Packs/Day Years Used Date Smoking Tobacco: Never Assessed Sex and Gender Information Value Date Recorded Sex Assigned at Not on file Gender Identity Not on file Sexual Orientation Not on file documented as of this encounter Plan of Treatment Not on file documented as of this encounter Procedures Procedure Name Priority Date/Time Associated Diagnosis Comments SCAN, PERIPHERAL BLOOD Routine 0 6:40 AM EST DIFFERENTIAL, AUTOMATED Routine 03/08/2010 6:40 AM EST CREATININE Routine 03/08/2010 6:40 AM EST CBC (WITH DIFF) Routine 03/08/2010 6:40 AM EST BUN Routine 03/08/2010 6:40 AM EST PREALBUMIN Routine 03/08/2010 6:40 AM EST PHOSPHORUS Routine 03/08/2010 6:40 AM EST MAGNESIUM Routine 03/08/2010 6:40 AM EST CALCIUM Routine 03/08/2010 6:40 AM EST ELECTROLYTES PANEL Routine 03/08/2010 6: 40 AM EST SCAN, PERIPHERAL BLOOD STAT 0 12:55 PM EST DIFFERENTIAL, AUTOMATED STAT 03/06/2010 12:55 PM EST CBC (WITH DIFF) STAT 03/06/2010 12:55 PM EST CREATININE Routine 03/06/2010 6:30 AM EST CBC (WITH DIFF) Routine 03/06/2010 6:30 AM EST BUN Routine 03/06/2010 6:30 AM EST PHOSPHORUS Routine 03/06/2010 6:30 AM EST MAGNESIUM Routine 03/06/2010 6:30 AM EST ELECTROLYTES PANEL Routine 03/06/2010 6: 30 AM EST DIFFERENTIAL, MANUAL Routine 03/05/2010 3:45 AM EST CREATININE Routine 03/05/2010 3:45 AM EST CBC (WITH DIFF) Routine 03/05/2010 3:45 AM EST BUN Routine 03/05/2010 3:45 AM EST PHOSPHORUS Routine 03/05/2010 3:45 AM EST MAGNESIUM Routine 03/05/2010 3:45 AM EST ELECTROLYTES PANEL Routine 03/05/2010 3: 45 AM EST DIFFERENTIAL, MANUAL Routine 03/04/2010 3:10 AM EST CREATININE Routine 03/04/2010 3:10 AM EST CBC (WITH DIFF) Routine 03/04/2010 3:10 AM EST BUN Routine 03/04/2010 3:10 AM EST PHOSPHORUS Routine 03/04/2010 3:10 AM EST MAGNESIUM Routine 03/04/2010 3:10 AM EST CALCIUM Routine 03/04/2010 3:10 AM EST ELECTROLYTES PANEL Routine 03/04/2010 3: 10 AM EST DIFFERENTIAL, MANUAL Routine 03/03/2010 7:40 AM EST CBC (WITH DIFF) Routine 03/03/2010 7:40 AM EST PREALBUMIN Routine 03/03/2010 7:40 AM EST ALBUMIN LEVEL Routine 03/03/2010 7:40 AM EST CREATININE Routine 03/03/2010 4:35 AM EST BUN Routine 03/03/2010 4:35 AM EST ELECTROLYTES PANEL Routine 03/03/2010 4: 35 AM EST URINALYSIS WITH REFLEX CULTURE Routine 03/02/2010 10:00 AM EST URINE CULTURE Routine 03/02/2010 10:00 AM EST DIFFERENTIAL, MANUAL Routine 03/02/2010 7:45 AM EST CREATININE Routine 03/02/2010 7:45 AM EST CBC (WITH DIFF) Routine 03/02/2010 7:45 AM EST BUN Routine 03/02/2010 7:45 AM EST PHOSPHORUS Routine 03/02/2010 7:45 AM EST MAGNESIUM Routine 03/02/2010 7:45 AM EST ELECTROLYTES PANEL Routine 03/02/2010 7: 45 AM EST POCT GLUCOSE Routine 03/01/2010 3:59 PM EST POCT GLUCOSE Routine 03/01/2010 12:03 PM EST BLOOD CULTURE Routine 03/01/2010 10:42 AM EST BLOOD CULTURE Routine 03/01/2010 10:40 AM EST DIFFERENTIAL, MANUAL Routine 03/01/2010 2:42 AM EST CREATININE Routine 03/01/2010 2:42 AM EST CBC (WITH DIFF) Routine 03/01/2010 2:42 AM EST BUN Routine 03/01/2010 2:42 AM EST PHOSPHORUS Routine 03/01/2010 2:42 AM EST MAGNESIUM Routine 03/01/2010 2:42 AM EST ELECTROLYTES PANEL Routine 03/01/2010 2: 42 AM EST POCT GLUCOSE Routine 03/01/2010 12:02 AM EST POCT GLUCOSE Routine 02/28/2010 7:57 PM EST SCAN, PERIPHERAL BLOOD Routine 0 6:20 AM EST DIFFERENTIAL, AUTOMATED Routine 02/28/2010 6:20 AM EST CREATININE Routine 02/28/2010 6:20 AM EST CBC (WITH DIFF) Routine 02/28/2010 6:20 AM EST BUN Routine 02/28/2010 6:20 AM EST PHOSPHORUS Routine 02/28/2010 6:20 AM EST MAGNESIUM Routine 02/28/2010 6:20 AM EST ELECTROLYTES PANEL Routine 02/28/2010 6: 20 AM EST POCT GLUCOSE Routine 02/28/2010 4:05 AM EST POCT GLUCOSE Routine 02/27/2010 9:38 PM EST POCT GLUCOSE Routine 02/27/2010 6:01 PM EST POCT GLUCOSE Routine 02/27/2010 2:12 PM EST VANCOMYCIN, TROUGH STAT 02/27/2010 11 :50 AM EST POCT GLUCOSE Routine 02/27/2010 10:02 AM EST POCT GLUCOSE Routine 02/27/2010 5:37 AM EST POCT GLUCOSE Routine 02/27/2010 3:56 AM EST DIFFERENTIAL, MANUAL STAT 02/27/2010 3:50 AM EST CREATININE STAT 02/27/2010 3:50 AM EST CBC (WITH DIFF) STAT 02/27/2010 3:50 AM EST BUN STAT 02/27/2010 3:50 AM EST ELECTROLYTES PANEL STAT 02/27/2010 3: 50 AM EST POCT GLUCOSE Routine 02/27/2010 2:02 AM EST POCT GLUCOSE Routine 02/27/2010 12:09 AM EST POCT GLUCOSE Routine 02/26/2010 10:30 PM EST POCT GLUCOSE Routine 02/26/2010 9:25 PM EST POCT GLUCOSE Routine 02/26/2010 8:36 PM EST POCT GLUCOSE Routine 02/26/2010 12:13 PM EST BLOOD GAS ARTERIAL POC Routine 0 4:54 AM EST SCAN, PERIPHERAL BLOOD Routine 0 4:15 AM EST DIFFERENTIAL, AUTOMATED Routine 02/26/2010 4:15 AM EST CREATININE Routine 02/26/2010 4:15 AM EST CBC (WITH DIFF) Routine 02/26/2010 4:15 AM EST BUN Routine 02/26/2010 4:15 AM EST PHOSPHORUS Routine 02/26/2010 4:15 AM EST MAGNESIUM Routine 02/26/2010 4:15 AM EST GLUCOSE, FASTING Routine 02/26/2010 4:15 AM EST CALCIUM Routine 02/26/2010 4:15 AM EST ELECTROLYTES PANEL Routine 02/26/2010 4: 15 AM EST POCT GLUCOSE Routine 02/26/2010 1:29 AM EST POCT GLUCOSE Routine 02/25/2010 10:17 PM EST POCT GLUCOSE Routine 02/25/2010 3:06 PM EST SCAN, PERIPHERAL BLOOD STAT 0 3:00 PM EST DIFFERENTIAL, AUTOMATED STAT 02/25/2010 3:00 PM EST APTT STAT 02/25/2010 3:00 PM EST PROTHROMBIN TIME STAT 02/25/2010 3:00 PM EST CBC (WITH DIFF) STAT 02/25/2010 3:00 PM EST PHOSPHORUS STAT 02/25/2010 3:00 PM EST MAGNESIUM STAT 02/25/2010 3:00 PM EST BASIC METABOLIC PANEL STAT 02/25/2010 3:00 PM EST BLOOD GAS ARTERIAL POC Routine 0 2:57 PM EST BLOOD GAS ARTERIAL POC Routine 0 12:40 PM EST FLUID REVIEW REPORT Routine 02/25/2010 1 1:32 AM EST SURGICAL PATHOLOGY REPORT Routine 02/25/2010 11:14 AM EST ANAEROBIC CULTURE Routine 02/25/2010 10: 45 AM EST AFB CULTURE Routine 02/25/2010 10:45 AM EST FUNGAL STAIN Routine 02/25/2010 10:45 AM EST BODY FLUID CULTURE, AEROBIC Routine 02/25/2010 10:45 AM EST FUNGUS CULTURE Routine 02/25/2010 10:45 AM EST CELL COUNT BODY FLUID STAT 02/25/2010 10:45 AM EST SCAN, PERIPHERAL BLOOD Routine 11/11/201 0 8:24 AM EST DIFFERENTIAL, AUTOMATED Routine 02/25/2010 8:24 AM EST CREATININE Routine 02/25/2010 8:24 AM EST CBC (WITH DIFF) Routine 02/25/2010 8:24 AM EST BUN Routine 02/25/2010 8:24 AM EST ELECTROLYTES PANEL Routine 02/25/2010 8: 24 AM EST POCT GLUCOSE Routine 02/25/2010 6:16 AM EST POCT GLUCOSE Routine 02/25/2010 12:14 AM EST POCT GLUCOSE Routine 02/24/2010 5:14 PM EST POCT GLUCOSE Routine 02/24/2010 11:56 AM EST LOWER RESPIRATORY CULTURE Routine 02/24/2010 9:30 AM EST ABORH TYPE MANUAL Routine 02/24/2010 7:5 7 AM EST SELECTED CELL SCREEN Routine 02/24/2010 7:57 AM EST SCAN, PERIPHERAL BLOOD Routine 0 7:30 AM EST DIFFERENTIAL, AUTOMATED Routine 02/24/2010 7:30 AM EST CREATININE Routine 02/24/2010 7:30 AM EST APTT Routine 02/24/2010 7:30 AM EST PROTHROMBIN TIME Routine 02/24/2010 7:30 AM EST CBC (WITH DIFF) Routine 02/24/2010 7:30 AM EST BUN Routine 02/24/2010 7:30 AM EST PHOSPHORUS Routine 02/24/2010 7:30 AM EST MAGNESIUM Routine 02/24/2010 7:30 AM EST CALCIUM Routine 02/24/2010 7:30 AM EST ALBUMIN LEVEL Routine 02/24/2010 7:30 AM EST ELECTROLYTES PANEL Routine 02/24/2010 7: 30 AM EST POCT GLUCOSE Routine 02/24/2010 6:13 AM EST POCT GLUCOSE Routine 02/24/2010 12:40 AM EST POCT GLUCOSE Routine 02/23/2010 4:58 PM EST DIFFERENTIAL, MANUAL STAT 02/23/2010 12:20 PM EST NUCLEATED RED BLOOD CELLS STAT 02/23/2010 12:20 PM EST CARDIAC ENZYMES ([facility]/CGP) Routine 02/23/2010 12:20 PM EST CBC (WITH DIFF) STAT 02/23/2010 12:20 PM EST PROTEIN, TOTAL STAT 02/23/2010 12:20 PM EST LACTATE DEHYDROGENASE Routine 02/23/2010 12:20 PM EST LIPID PANEL (REFLEX DIRECT LDL) Routine 02/23/2010 12:20 PM EST POCT GLUCOSE Routine 02/23/2010 12:09 PM EST ANAEROBIC CULTURE Routine 02/23/2010 10: 00 AM EST BODY FLUID CULTURE, AEROBIC Routine 02/23/2010 10:00 AM EST CELL COUNT BODY FLUID Routine 02/23/2010 10:00 AM EST PROTEIN LEVEL BODY FLUID Routine 02/23/2010 10:00 AM EST LACTATE DEHYDROGENASE BODY FLUID Routine 02/23/2010 10:00 AM EST GLUCOSE LEVEL BODY FLUID Routine 02/23/2010 10:00 AM EST POCT GLUCOSE Routine 02/23/2010 6:10 AM EST CARDIAC ENZYMES ([facility]/CGP) Routine 02/23/2010 3:40 AM EST BLOOD CULTURE Routine 02/23/2010 2:18 AM EST POCT GLUCOSE Routine 02/22/2010 11:59 PM EST DIFFERENTIAL, MANUAL STAT 02/22/2010 8:56 PM EST CARDIAC ENZYMES ([facility]/CGP) STAT 02/22/2010 8:56 PM EST SEDIMENTATION RATE Routine 02/22/2010 8: 56 PM EST CBC (WITH DIFF) STAT 02/22/2010 8:56 PM EST BASIC METABOLIC PANEL STAT 02/22/2010 8:56 PM EST BLOOD CULTURE Routine 02/22/2010 8:47 PM EST documented in this encounter Results * (ABNORMAL) PREALBUMIN (03/08/2010 6:40 AM EST) Prealbumin 8(L) 20 - 40 mg/dL [facility] Comment: Prealbumin levels are generally lower in the pediatric population; adult concentrations are usually attained near puberty. Blood specimen (specimen) 03/08/2010 6:40 AM EST 03/08/2010 7:04 AM EST Pro Pressley MD CHEMISTRY ORDERABLES CERNER MILLENNIUM * REFLEX LAB-SCAN (03/08/2010 6:40 AM EST) Plat estimate Increased CERNER MILLENNIUM RBC Morphology Abnormal CERNE R MILLENNIUM Polychromasia Present >5/HPF CERNER MILLENNIUM Stippled RBC Present >1/HPF CERNER MILLENNIUM Blood specimen (specimen) 03/08/2010 6:40 AM EST 03/08/2010 7:04 AM EST Pro Pressley MD HEMATOLOGY ORDERABLE S [facility] * (ABNORMAL) REFLEX LAB-A-DIFF (03/08/2010 6:40 AM EST) Neutrophil % 57.6 34.0 - 71.0 % CERNER MILLENNIUM Neutrophil Absolute 4.16 1.50 - 6.30 x10(3)/mc L CERNER MILLENNIUM Lymph % 26.9 19.0 - 53.0 % CERNER MILLENNIUM Lymphocytes Abs 1.9 1.0 - 3.6 x10(3)/mc L CERNER MILLENNIUM Monocyte % 9.4 4.0 - 13.0 % CERNER MILLENNIUM Monocyte Abs 0.7 0.2 - 1.0 x10(3)/mc L CERNER MILLENNIUM Eos % 2.1 0.0 - 7.0 % CERNER MILLENNIUM Eosinophils Abs 0.2 0.0 - 0.5 x10(3)/mc L CERNER MILLENNIUM Basophil % 1.9 0.0 - 2.0 % CERNER MILLENNIUM Baso Absolute 0.1 0.0 - 0.2 x10(3)/mc L CERNER MILLENNIUM Immature Gran % 2.10(H) 0.00 - 0.66 % CERNER MILLENNIUM Comment: Immature granulocytes(IG's)percentage and absolute count will include metamyelocytes, myelocytes, and promyelocytes. Blood smears from CBC's yielding IG's will be scanned manually for concordance. If this scan disagrees with the automated IG or if promyelocytes are noted, a manual differential will be performed. Immature Gran Absolute 0.15(H) 0.00 - 0.05 x10(3)/mc L CERNER MILLENNIUM Blood specimen (specimen) 03/08/2010 6:40 AM EST 03/08/2010 7:04 AM EST Pro Pressley MD HEMATOLOGY ORDERABLE S Performing Organization Address [facility] de Phone Number [facility] * PHOSPHORUS (03/08/2010 6:40 AM EST) Phosphorus 4.4 2.5 - 4.5 mg/dL [facility] Blood specimen (specimen) 03/08/2010 6:40 AM EST 03/08/2010 7:03 AM EST Pro Pressley MD CHEMISTRY ORDERABLES Performing Organization Address [facility] Phone Number [facility] * MAGNESIUM (03/08/2010 6:40 AM EST) Magnesium 0.96 0.69 - 1.07 mmol/L [facility] Blood specimen (specimen) 03/08/2010 6:40 AM EST 03/08/2010 7:03 AM EST Pro Pressley MD CHEMISTRY ORDERABLES Performing Organization Address [facility] Phone Number [facility] * (ABNORMAL) CREATININE, SERUM (03/08/2010 6:40 AM EST) Creatinine 0.53(L) 0.70 - 1.20 mg/dL [facility] Est Glomerular Filtration Rate >60 >=60 CERNER [...] disease. References: http://nkdep.nih.gov/resources/NKDEP_Suggestn4Labs_0606_508.pdf http://www.kidney.org/professionals/kls/pdf/faq_gfr.pdf Blood specimen (specimen) 03/08/2010 6:40 AM EST 03/08/2010 7:03 AM EST Pro Pressley MD CHEMISTRY ORDERABLES Performing Organization Address [facility] Phone Number [facility] * CALCIUM (03/08/2010 6:40 AM EST) Calcium 8.5 8.5 - 10.5 mg/dL CERNER [employer]ENNIUM Blood specimen (specimen) 03/08/2010 6:40 AM EST 03/08/2010 7:03 AM EST Pro Pressley MD CHEMISTRY ORDERABLES Performing Organization Address [facility] de Phone Number [facility] * BUN (03/08/2010 6:40 AM EST) Blood Urea Nitrogen 10 8 - 18 mg/dL CERNER MILLENNIUM Blood specimen (specimen) 03/08/2010 6:40 AM EST 03/08/2010 7:03 AM EST Pro Pressley MD CHEMISTRY ORDERABLES Performing Organization Address [facility] de Phone Number [facility] * ELECTROLYTE PANEL (03/08/2010 6:40 AM EST) Sodium 141 135 - 145 mmol/L CERNER MILLENNIUM Potassium 3.5 3.5 - 5.0 mmol/L CERNER MILLENNIUM Comment: Please note: ??Patients with WBC >100,000 may have falsely elevated Potassium levels. ??For accurate Potassium quantification in these patients send serum separator tube (gold top) for subsequent determinations. ??Contact the Clinical Chemistry Laboratory if there are any questions. Chloride 105 98 - 107 mmol/L CERNER MILLENNIUM Carbon Dioxide 27 22 - 31 mmol/L CERNER MILLENNIUM Anion Gap 9 5 - 15 mmol/L CERNER MILLENNIUM Blood specimen (specimen) 03/08/2010 6:40 AM EST 03/08/2010 7:03 AM EST Pro Pressley MD CHEMISTRY ORDERABLES CERNER MILLENNIUM * (ABNORMAL) CBC (03/08/2010 6:40 AM EST) Pathologist [facility] White Blood Cell 7.2 4.0 - 10.0 x10(3)/mc L CERNER MILLENNIUM Red Blood Cell 2.64(L) 3.93 - 5.22 x10(6)/mc L CERNER MILLENNIUM Hemoglobin 7.2(L) 11.2 - 15.7 gm/dL CERNER MILLENNIUM Hematocrit 23.3(L) 34.0 - 45.0 % CERNER MILLENNIUM Mean Cell Volume 88.3 79.0 - 94.0 fL CERNER MILLENNIUM Mean Cell Hemoglobin 27.3 26.6 - 32.2 pg CERNER MILLENNIUM Mean Cell Hemoglobin Concentration 30.9(L) 32.0 - 36.5 gm/dL CERNER MILLENNIUM Platelet 516(H) 145 - 370 x10(3)/mc L CERNER MILLENNIUM RDW Standard Deviation 51.6(H) 35.0 - 46.0 fL CERNER MILLENNIUM RDW coefficient of variation 15.9(H) 10.9 - 14.4 % CERNER MILLENNIUM Mean Platelet Volume 8.5(L) 9.0 - 12.0 fL CERNER MILLENNIUM Blood specimen (specimen) 03/08/2010 6:40 AM EST 03/08/2010 7:04 AM EST Pro Pressley MD HEMATOLOGY ORDERABLE S CERNER MILLENNIUM * REFLEX LAB-SCAN (03/06/2010 12:55 PM EST) Plat estimate Increased CERNER MILLENNIUM RBC Morphology Abnormal CERNE R MILLENNIUM Microcyte 1-5 /HPF CERNER MILLENNIUM Hypochromia Slight CERNER MILLENNIUM Blood specimen (specimen) 03/06/2010 12:55 PM EST 03/06/2010 1:02 PM EST Pro Pressley MD HEMATOLOGY ORDERABLE S CERNER MILLENNIUM * (ABNORMAL) REFLEX LAB-A-DIFF (03/06/2010 12:55 PM EST) Neutrophil % 68.4 34.0 - 71.0 % CERNER MILLENNIUM Neutrophil Absolute 6.06 1.50 - 6.30 x10(3)/mc L CERNER MILLENNIUM Lymph % 17.8(L) 19.0 - 53.0 % CERNER MILLENNIUM Lymphocytes Abs 1.6 1.0 - 3.6 x10(3)/mc L CERNER MILLENNIUM Monocyte % 8.0 4.0 - 13.0 % CERNER MILLENNIUM Monocyte Abs 0.7 0.2 - 1.0 x10(3)/mc L CERNER MILLENNIUM Eos % 1.8 0.0 - 7.0 % CERNER MILLENNIUM Eosinophils Abs 0.2 0.0 - 0.5 x10(3)/mc L CERNER MILLENNIUM Basophil % 0.7 0.0 - 2.0 % CERNER MILLENNIUM Baso Absolute 0.1 0.0 - 0.2 x10(3)/mc L CERNER MILLENNIUM Immature Gran % 3.30(H) 0.00 - 0.66 % CERNER MILLENNIUM Comment: Immature granulocytes(IG's)percentage and absolute count will include metamyelocytes, myelocytes, and promyelocytes. Blood smears from CBC's yielding IG's will be scanned manually for concordance. If this scan disagrees with the automated IG or if promyelocytes are noted, a manual differential will be performed. Immature Gran Absolute 0.29(H) 0.00 - 0.05 x10(3)/mc L CERNER MILLENNIUM Blood specimen (specimen) 03/06/2010 12:55 PM EST 03/06/2010 1:02 PM EST Pro Pressley MD HEMATOLOGY ORDERABLE S Performing Organization Address [facility] Co de Phone Number CERNER MILLENNIUM * (ABNORMAL) CBC (03/06/2010 12:55 PM EST) White Blood Cell 8.9 4.0 - 10.0 x10(3)/mc L CERNER MILLENNIUM Red Blood Cell 2.89(L) 3.93 - 5.22 x10(6)/mc L CERNER MILLENNIUM Hemoglobin 8.0(L) 11.2 - 15.7 gm/dL CERNER MILLENNIUM Hematocrit 25.6(L) 34.0 - 45.0 % CERNER MILLENNIUM Mean Cell Volume 88.6 79.0 - 94.0 fL CERNER MILLENNIUM Mean Cell Hemoglobin 27.7 26.6 - 32.2 pg CERNER MILLENNIUM Mean Cell Hemoglobin Concentration 31.3(L) 32.0 - 36.5 gm/dL CERNER MILLENNIUM Platelet 420(H) 145 - 370 x10(3)/mc L CERNER MILLENNIUM RDW Standard Deviation 51.3(H) 35.0 - 46.0 fL CERNER MILLENNIUM RDW coefficient of variation 15.9(H) 10.9 - 14.4 % CERNER MILLENNIUM Mean Platelet Volume 9.0 9.0 - 12.0 fL CERNER MILLENNIUM Blood specimen (specimen) 03/06/2010 12:55 PM EST 03/06/2010 1:02 PM EST Pro Pressley MD HEMATOLOGY ORDERABLE S CERNER MILLENNIUM * PHOSPHORUS (03/06/2010 6:30 AM EST) Phosphorus 4.4 2.5 - 4.5 mg/dL CERNER MILLENNIUM Blood specimen (specimen) 03/06/2010 6:30 AM EST 03/06/2010 6:35 AM EST Pro Pressley MD CHEMISTRY ORDERABLES Performing Organization Address [facility] de Phone Number [facility] * MAGNESIUM (03/06/2010 6:30 AM EST) Magnesium 0.88 0.69 - 1.07 mmol/L [facility] Blood specimen (specimen) 03/06/2010 6:30 AM EST 03/06/2010 6:35 AM EST Pro Pressley MD CHEMISTRY ORDERABLES Performing Organization Address [facility] Phone Number [facility] SVITLANABANNERIUM * ELECTROLYTE PANEL (03/06/2010 6:30 AM EST) Sodium 139 135 - 145 mmol/L CERNER MILLENNIUM Potassium 4.3 3.5 - 5.0 mmol/L CERNER MILLENNIUM Comment: Please note: ??Patients with WBC >100,000 may have falsely elevated Potassium levels. ??For accurate Potassium quantification in these patients send serum separator tube (gold top) for subsequent determinations. ??Contact the Clinical Chemistry Laboratory if there are any questions. Chloride 106 98 - 107 mmol/L CERNER MILLENNIUM Carbon Dioxide 26 22 - 31 mmol/L CERNER MILLENNIUM Anion Gap 7 5 - 15 mmol/L CERNER MILLENNIUM Blood specimen (specimen) 03/06/2010 6:30 AM EST 03/06/2010 6:35 AM EST Pro Pressley MD CHEMISTRY ORDERABLES Performing Organization Address [facility] Co de Phone Number [facility] SVITLANABANNERIUM * (ABNORMAL) CREATININE, SERUM (03/06/2010 6:30 AM EST) Creatinine 0.56(L) 0.70 - 1.20 mg/dL CERNER MILLENNIUM Est [...] disease. References: http://nkdep.nih.gov/resources/NKDEP_Suggestn4Labs_0606_508.pdf http://www.kidney.org/professionals/kls/pdf/faq_gfr.pdf Blood specimen (specimen) 03/06/2010 6:30 AM EST 03/06/2010 6:35 AM EST Pro Pressley MD CHEMISTRY ORDERABLES Performing Organization Address [facility] de Phone Number [employer] * BUN (03/06/2010 6:30 AM EST) Blood Urea Nitrogen 9 8 - 18 mg/dL [facility] MILLENNIUM Blood specimen (specimen) 03/06/2010 6:30 AM EST 03/06/2010 6:35 AM EST Pro Pressley MD CHEMISTRY ORDERABLES Performing Organization Address [facility] Co de Phone Number [facility] [employer]ENNIUM * CBC (03/06/2010 6:30 AM EST) White Blood Cell QNS 4.0 - 10.0 x10(3)/mcL [facility] Comment:Corrected from 7.6 x 10(3)/mcL on 03/06/10 07:24:35 EST by Latonya Vela Red Blood Cell QNS 3.93 - 5.22 x10(6)/mcL [facility] Comment: Corrected from 2.85 x10(6)/mcL [LOW] on 03/06/10 07:24:35 EST by Latonya Vela Hemoglobin QNS 11.2 - 15.7 gm/dL [facility] Comment:Corrected from 7.8 g m/dL [LOW] on 03/06/10 07:24:35 EST by Latonya Vela Hematocrit QNS 34.0 - 45.0 % [facility] Comment:Corrected from 25.2 % [LOW] on 03/06/10 07:24:35 EST by Latonya Vela Mean Cell Volume QNS 79.0 - 94.0 fL [facility] Comment:Corrected from 88.4 fL on 03/06/10 07:24:35 EST by Latonya Vela Mean Cell Hemoglobin QNS 26.6 - 32.2 pg [facility] Comment:Corrected from 27.4 pg on 03/06/10 07:24:35 EST by Latonya Vela Mean Cell Hemoglobin Concentration QNS 32.0 - 36.5 gm/dL [facility] Comment:Corrected from 31.0 gm/dL [LOW] on 03/06/10 07:24:35 EST by Latonya Vela Platelet QNS 145 - 370 x10(3)/mcL [facility] Comment:Corrected from 339 x 10(3)/mcL on 03/06/10 07:24:35 EST by Adilia Vela. RDW Standard Deviation QNS 35.0 - 46.0 fL [facility] Comment:Corrected from 52.9 fL [HI] on 03/06/10 07:24:35 EST by Latonya Vela RDW coefficient of variation QNS 10.9 - 14.4 % CERNER MILLENNIUM Comment:Corrected from 16.2 % [HI] on 03/06/10 07:24:35 EST by Latonya Vela Mean Platelet Volume QNS 9.0 - 12.0 fL CERNER MILLENNIUM Comment:Corrected from 8.8 f L [LOW] on 03/06/10 07:24:35 EST by Latonya Vela Blood specimen (specimen) 03/06/2010 6:30 AM EST 03/06/2010 6:35 AM EST Pro Pressley MD HEMATOLOGY ORDERABLE S [facility] MILLENNIUM * (ABNORMAL) REFLEX LAB-NCDIFF (03/05/2010 3:45 AM EST) Segmented Neutrophils Manual 68 34 - 71 % CERNER MILLENNIUM Lymphocyte Manual 22 19 - 53 % CE RNER MILLENNIUM Monocyte Manual 5 4 - 13 % CERN ER MILLENNIUM Eosinophil Manual 1 0 - 7 % CE RNER MILLENNIUM Metamyelocyte Manual 2(H) 0 - 0 % CERNER MILLENNIUM Myelocyte Manual 2(H) 0 - 0 % CER NER MILLENNIUM Segs Absolute Manual 7.0(H) 1.5 - 6.3 x10(3)/mc L CERNER MILLENNIUM ANC 6.95(H) 1.50 - 6.30 x10(3)/mc L CERNER MILLENNIUM Lymph Absolute Manual 2.3 1.0 - 3.6 x10(3)/mc L CERNER MILLENNIUM Monocyte Absolute Manual 0.5 0.2 - 1.0 x10(3)/mc L CERNER MILLENNIUM Eos Absolute Manual 0.1 0.0 - 0.5 x10(3)/mc L CERNER MILLENNIUM [place] Absolute Manual 0.2(H) 0.0 - 0.0 x10(3)/mc L CERNER MILLENNIUM Myelo Absolute Manual 0.2(H) 0.0 - 0.0 x10(3)/mc L CERNER MILLENNIUM Total Cells Ct 100 CERNE R MILLENNIUM Plat estimate Normal CERNER MILLENNIUM RBC Morphology Abnormal CERNE R MILLENNIUM Macrocyte 1-5 /HPF CERNER MILLENNIUM Blood specimen (specimen) 03/05/2010 3:45 AM EST 03/05/2010 3:57 AM EST Pro Pressley MD HEMATOLOGY ORDERABLE S Performing Organization Address [facility] de Phone Number CERNER MILLENNIUM * PHOSPHORUS (03/05/2010 3:45 AM EST) Phosphorus 4.1 2.5 - 4.5 mg/dL CERNER MILLENNIUM Blood specimen (specimen) 03/05/2010 3:45 AM EST 03/05/2010 3:57 AM EST Pro Pressley MD CHEMISTRY ORDERABLES Performing Organization Address [facility] Phone Number CERNER MILLENNIUM * MAGNESIUM (03/05/2010 3:45 AM EST) Magnesium 0.83 0.69 - 1.07 mmol/L CERNER MILLENNIUM Blood specimen (specimen) 03/05/2010 3:45 AM EST 03/05/2010 3:57 AM EST Pro Pressley MD CHEMISTRY ORDERABLES Performing Organization Address [facility] - [place]/[facility] Phone Number CERNER MILLENNIUM * (ABNORMAL) ELECTROLYTE PANEL (03/05/2010 3:45 AM EST) Sodium 132(L) 135 - 145 mmol/L CERNER MILLENNIUM Potassium [...] 8 5 - 15 mmol/L CERNER MILLENNIUM Blood specimen (specimen) 03/05/2010 3:45 AM EST 03/05/2010 3:57 AM EST Pro Pressley MD CHEMISTRY ORDERABLES Performing Organization Address City/[facility]/ZIP Co de Phone Number [facility] GAUT[facility] * (ABNORMAL) CREATININE, SERUM (03/05/2010 3:45 AM EST) Creatinine 0.61(L) 0.70 - 1.20 mg/dL CERNER MILLENNIUM Est [...] disease. References: http://nkdep.nih.gov/resources/NKDEP_Suggestn4Labs_0606_508.pdf http://www.kidney.org/professionals/kls/pdf/faq_gfr.pdf Blood specimen (specimen) 03/05/2010 3:45 AM EST 03/05/2010 3:57 AM EST Pro Pressley MD CHEMISTRY ORDERABLES [facility] * BUN (03/05/2010 3:45 AM EST) Blood Urea Nitrogen 8 8 - 18 mg/dL CERNER MILLENNIUM Blood specimen (specimen) 03/05/2010 3:45 AM EST 03/05/2010 3:57 AM EST Pro Pressley MD CHEMISTRY ORDERABLES CERCHAPINCITO MILLENNIUM * (ABNORMAL) CBC (03/05/2010 3:45 AM EST) White Blood Cell 10.2(H) 4.0 - 10.0 x10(3)/mc L CERNER MILLENNIUM Red Blood Cell 2.94(L) 3.93 - 5.22 x10(6)/mc L CERNER MILLENNIUM Hemoglobin 8.2(L) 11.2 - 15.7 gm/dL CERNER MILLENNIUM Hematocrit 25.9(L) 34.0 - 45.0 % CERNER MILLENNIUM Mean Cell Volume 88.1 79.0 - 94.0 fL CERNER MILLENNIUM Mean Cell Hemoglobin 27.9 26.6 - 32.2 pg CERNER MILLENNIUM Mean Cell Hemoglobin Concentration 31.7(L) 32.0 - 36.5 gm/dL CERNER MILLENNIUM Platelet 350 145 - 370 x10(3)/mc L CERNER MILLENNIUM RDW Standard Deviation 52.9(H) 35.0 - 46.0 fL CERNER MILLENNIUM RDW coefficient of variation 16.4(H) 10.9 - 14.4 % CERNER MILLENNIUM Mean Platelet Volume 8.7(L) 9.0 - 12.0 fL CERNER MILLENNIUM Blood specimen (specimen) 03/05/2010 3:45 AM EST 03/05/2010 3:57 AM EST Pro Pressley MD HEMATOLOGY ORDERABLE S [facility] SHANEENNIUM * (ABNORMAL) REFLEX LAB-NCDIFF (03/04/2010 3:10 AM EST) Segmented Neutrophils Manual 66 34 - 71 % CERNER MILLENNIUM Band % 8 0 - 12 % CERNER MILLENNIUM Lymphocyte Manual 15(L) 19 - 53 % CE RNER MILLENNIUM Monocyte Manual 4 4 - 13 % CERN ER MILLENNIUM Basophil Manual 1 0 - 2 % CERN ER MILLENNIUM Metamyelocyte Manual 4(H) 0 - 0 % CERNER MILLENNIUM Myelocyte Manual 2(H) 0 - 0 % CER NER MILLENNIUM Segs Absolute Manual 8.8(H) 1.5 - 6.3 x10(3)/mc L CERNER MILLENNIUM Band Abs 1.1(H) 0.2 - 0.6 x10(3)/mc L CERNER MILLENNIUM ANC 9.88(H) 1.50 - 6.30 x10(3)/mc L CERNER MILLENNIUM Lymph Absolute Manual 2.0 1.0 - 3.6 x10(3)/mc L CERNER MILLENNIUM Monocyte Absolute Manual 0.5 0.2 - 1.0 x10(3)/mc L CERNER MILLENNIUM Baso Absolute Manual 0.1 0.0 - 0.2 x10(3)/mc L CERNER MILLENNIUM [place] Absolute Manual 0.5(H) 0.0 - 0.0 x10(3)/mc L CERNER MILLENNIUM Myelo Absolute Manual 0.3(H) 0.0 - 0.0 x10(3)/mc L CERNER MILLENNIUM Total Cells Ct 100 CERNE R MILLENNIUM Plat estimate Normal CERNER MILLENNIUM RBC Morphology Abnormal CERNE R MILLENNIUM Polychromasia Present >5/HPF CERNER MILLENNIUM Ovalocytes 1-5 /HPF CERNER MILLENNIUM Schistocyte 1-5 /HPF CERNER MILLENNIUM [place] Cells 1-5 /HPF CERNER MILLENNIUM Dohle Bodies Present CERNER MILLENNIUM Blood specimen (specimen) 03/04/2010 3:10 AM EST 03/04/2010 3:23 AM EST Pro Pressley MD HEMATOLOGY ORDERABLE S CERNER MILLENNIUM * ELECTROLYTE PANEL (03/04/2010 3:10 AM EST) Sodium 138 135 - 145 mmol/L CERNER MILLENNIUM Potassium 4.5 3.5 - 5.0 mmol/L CERNER MILLENNIUM Comment: result rechecked-ad Please note: ??Patients with WBC >100,000 may have falsely elevated Potassium levels. ??For accurate Potassium quantification in these patients send serum separator tube (gold top) for subsequent determinations. ??Contact the Clinical Chemistry Laboratory if there are any questions. Chloride 104 98 - 107 mmol/L CERNER MILLENNIUM Carbon Dioxide 23 22 - 31 mmol/L CERNER MILLENNIUM Anion Gap 11 5 - 15 mmol/L CERNER MILLENNIUM Blood specimen (specimen) 03/04/2010 3:10 AM EST 03/04/2010 3:23 AM EST Pro Pressley MD CHEMISTRY ORDERABLES Performing Organization Address City/[facility] Co de Phone Number [facility] M[facility] * PHOSPHORUS (03/04/2010 3:10 AM EST) Phosphorus 3.8 2.5 - 4.5 mg/dL CERNER MILLENNIUM Blood specimen (specimen) 03/04/2010 3:10 AM EST 03/04/2010 3:23 AM EST Pro Pressley MD CHEMISTRY ORDERABLES Performing Organization Address [facility] [place]/[facility] [place] Phone Number [facility] M[facility] * MAGNESIUM (03/04/2010 3:10 AM EST) Magnesium 0.88 0.69 - 1.07 mmol/L CERNER MILLENNIUM Blood specimen (specimen) 03/04/2010 3:10 AM EST 03/04/2010 3:23 AM EST Pro Pressley MD CHEMISTRY ORDERABLES Performing Organization Address City/State/[facility] Co de Phone Number [facility] MILLENNIUM * CALCIUM (03/04/2010 3:10 AM EST) Calcium 8.6 8.5 - 10.5 mg/dL CERNER MILLENNIUM Blood specimen (specimen) 03/04/2010 3:10 AM EST 03/04/2010 3:23 AM EST Pro Pressley MD CHEMISTRY ORDERABLES Performing Organization Address [facility] [place]/[facility] Co de Phone Number [facility] GAUTAM * (ABNORMAL) CREATININE, SERUM (03/04/2010 3:10 AM EST) Creatinine 0.51(L) 0.70 - 1.20 mg/dL CERNER MILLENNIUM Est [...] disease. References: http://nkdep.nih.gov/resources/NKDEP_Suggestn4Labs_0606_508.pdf http://www.kidney.org/professionals/kls/pdf/faq_gfr.pdf Blood specimen (specimen) 03/04/2010 3:10 AM EST 03/04/2010 3:23 AM EST Pro Pressley MD CHEMISTRY ORDERABLES Performing Organization Address City/[facility]/ZIP Co de Phone Number [facility] * (ABNORMAL) BUN (03/04/2010 3:10 AM EST) Blood Urea Nitrogen 7(L) 8 - 18 mg/dL CERNER MILLENNIUM Blood specimen (specimen) 03/04/2010 3:10 AM EST 03/04/2010 3:23 AM EST Pro Pressley MD CHEMISTRY ORDERABLES Performing Organization Address City/[facility]/ZIP Co de Phone Number CERCHAPINCITO MILLENNIUM * (ABNORMAL) CBC (03/04/2010 3:10 AM EST) White Blood Cell 13.4(H) 4.0 - 10.0 x10(3)/mc L CERNER MILLENNIUM Red Blood Cell 2.98(L) 3.93 - 5.22 x10(6)/mc L CERNER MILLENNIUM Hemoglobin 8.2(L) 11.2 - 15.7 gm/dL CERNER MILLENNIUM Hematocrit 26.3(L) 34.0 - 45.0 % CERNER MILLENNIUM Mean Cell Volume 88.3 79.0 - 94.0 fL CERNER MILLENNIUM Mean Cell Hemoglobin 27.5 26.6 - 32.2 pg CERNER MILLENNIUM Mean Cell Hemoglobin Concentration 31.2(L) 32.0 - 36.5 gm/dL CERNER MILLENNIUM Platelet 328 145 - 370 x10(3)/mc L CERNER MILLENNIUM RDW Standard Deviation 52.3(H) 35.0 - 46.0 fL CERNER MILLENNIUM RDW coefficient of variation 16.4(H) 10.9 - 14.4 % CERNER MILLENNIUM Mean Platelet Volume 8.4(L) 9.0 - 12.0 fL CERNER MILLENNIUM Blood specimen (specimen) 03/04/2010 3:10 AM EST 03/04/2010 3:23 AM EST Pro Pressley MD HEMATOLOGY ORDERABLE S [facility] SHANEENNIUM * (ABNORMAL) ALBUMIN (03/03/2010 7:40 AM EST) Albumin 2.3(L) 3.2 - 5.2 gm/dL CERNER MILLENNIUM Blood specimen (specimen) 03/03/2010 7:40 AM EST 03/03/2010 8:00 AM EST Pro Pressley MD CHEMISTRY ORDERABLES CERNER SVITLANAENNIUM * (ABNORMAL) PREALBUMIN (03/03/2010 7:40 AM EST) Prealbumin 7(L) 20 - 40 mg/dL CERNER MILLENNIUM Comment: Prealbumin levels are generally lower in the pediatric population; adult concentrations are usually attained near puberty. Blood specimen (specimen) 03/03/2010 7:40 AM EST 03/03/2010 8:00 AM EST Pro Pressley MD CHEMISTRY ORDERABLES Performing Organization Address City/[facility] Co de Phone Number CERNER MILLENNIUM * (ABNORMAL) REFLEX LAB-NCDIFF (03/03/2010 7:40 AM EST) Segmented Neutrophils Manual 59 34 - 71 % CERNER MILLENNIUM Band % 12 0 - 12 % CERNER MILLENNIUM Lymphocyte Manual 15(L) 19 - 53 % CE RNER MILLENNIUM Monocyte Manual 4 4 - 13 % CERN ER MILLENNIUM Eosinophil Manual 2 0 - 7 % CE RNER MILLENNIUM Metamyelocyte Manual 2(H) 0 - 0 % CERNER MILLENNIUM Myelocyte Manual 6(H) 0 - 0 % CER NER MILLENNIUM Segs Absolute Manual 7.9(H) 1.5 - 6.3 x10(3)/mc L CERNER MILLENNIUM Band Abs 1.6(H) 0.2 - 0.6 x10(3)/mc L CERNER MILLENNIUM ANC 9.50(H) 1.50 - 6.30 x10(3)/mc L CERNER MILLENNIUM Lymph Absolute Manual 2.0 1.0 - 3.6 x10(3)/mc L CERNER MILLENNIUM Monocyte Absolute Manual 0.5 0.2 - 1.0 x10(3)/mc L CERNER MILLENNIUM Eos Absolute Manual 0.3 0.0 - 0.5 x10(3)/mc L CERNER MILLENNIUM [place] Absolute Manual 0.3(H) 0.0 - 0.0 x10(3)/mc L CERNER MILLENNIUM Myelo Absolute Manual 0.8(H) 0.0 - 0.0 x10(3)/mc L CERNER MILLENNIUM Total Cells Ct 100 CERNE R MILLENNIUM Plat estimate Normal CERNER MILLENNIUM RBC Morphology Abnormal CERNE R MILLENNIUM Polychromasia Present >5/HPF CERNER MILLENNIUM Dohle Bodies Present CERNER MILLENNIUM Blood specimen (specimen) 03/03/2010 7:40 AM EST 03/03/2010 8:00 AM EST Pro Pressley MD HEMATOLOGY ORDERABLE S CERNER MILLENNIUM * (ABNORMAL) CBC (03/03/2010 7:40 AM EST) White Blood Cell 13.4(H) 4.0 - 10.0 x10(3)/mc L CERNER MILLENNIUM Red Blood Cell 3.00(L) 3.93 - 5.22 x10(6)/mc L CERNER MILLENNIUM Hemoglobin 8.3(L) 11.2 - 15.7 gm/dL CERNER MILLENNIUM Hematocrit 26.5(L) 34.0 - 45.0 % CERNER MILLENNIUM Mean Cell Volume 88.3 79.0 - 94.0 fL CERNER MILLENNIUM Mean Cell Hemoglobin 27.7 26.6 - 32.2 pg CERNER MILLENNIUM Mean Cell Hemoglobin Concentration 31.3(L) 32.0 - 36.5 gm/dL CERNER MILLENNIUM Platelet 317 145 - 370 x10(3)/mc L CERNER MILLENNIUM RDW Standard Deviation 52.2(H) 35.0 - 46.0 fL CERNER MILLENNIUM RDW coefficient of variation 16.3(H) 10.9 - 14.4 % CERNER MILLENNIUM Mean Platelet Volume 8.3(L) 9.0 - 12.0 fL CERNER MILLENNIUM Blood specimen (specimen) 03/03/2010 7:40 AM EST 03/03/2010 8:00 AM EST Pro Pressley MD HEMATOLOGY ORDERABLE S [facility] * (ABNORMAL) CREATININE, SERUM (03/03/2010 4:35 AM EST) Creatinine 0.33(L) 0.70 - 1.20 mg/dL [facility] Est Glomerular Filtration Rate >60 >=60 [facility] Comment: The National Kidney Disease Education Program [...] disease. References: http://nkdep.nih.gov/resources/NKDEP_Suggestn4Labs_0606_508.pdf http://www.kidney.org/professionals/kls/pdf/faq_gfr.pdf Blood specimen (specimen) 03/03/2010 4:35 AM EST 03/03/2010 4:49 AM EST Pro Pressley MD CHEMISTRY ORDERABLES [facility] * (ABNORMAL) BUN (03/03/2010 4:35 AM EST) Blood Urea Nitrogen 6(L) 8 - 18 mg/dL CERNER MILLENNIUM Blood specimen (specimen) 03/03/2010 4:35 AM EST 03/03/2010 4:49 AM EST Pro Pressely MD CHEMISTRY ORDERABLES Performing Organization Address [facility] [place]/[facility] de Phone Number CERCHAPINCITO SHANEENNIUM * (ABNORMAL) ELECTROLYTE PANEL (03/03/2010 4:35 AM EST) Sodium 137 135 - 145 mmol/L CERNER MILLENNIUM Potassium 2.9(AA) 3.5 - 5.0 mmol/L CERNER MILLENNIUM Comment: Called by: ryder, Read back by: charito manuel, Date/Time:03/03/10 05:39. Result rechecked. Please note: ??Patients with WBC >100,000 may have falsely elevated Potassium levels. ??For accurate Potassium quantification in these patients send serum separator tube (gold top) for subsequent determinations. ??Contact the Clinical Chemistry Laboratory if there are any questions. Chloride 108(H) 98 - 107 mmol/L CERNER MILLENNIUM Carbon Dioxide 20(L) 22 - 31 mmol/L CERNER MILLENNIUM Anion Gap 9 5 - 15 mmol/L CERNER MILLENNIUM Blood specimen (specimen) 03/03/2010 4:35 AM EST 03/03/2010 4:49 AM EST Por Pressley MD CHEMISTRY ORDERABLES Performing Organization Address [facility] [place]/[facility] Co de Phone Number CERCHAPINCITO SIEGELIUM * URINE CULTURE (03/02/2010 10:00 AM EST) Urine Culture ? Patient Name: KYLEIGH CABALLERO ? Ordered By: PRO MAZARIEGOS ? MR#: [id number] ?LOC: ??4WST ? /Sex: ?? 1 (60 years), ? Female ? PROCEDURE: Urine Culture ?SOURCE: T CC ? COLLECTED: 03/02/2010 10:00 ? STARTED: 03/02/2010 10:56 ? FINAL REPORT ? Final Report ? Verified: 07:20 ? No growth (Less than 1,000 cfu/ml). ? ____ CERNER MILLENNIUM Urine specimen obtained by clean catch procedure (specimen) 03/02/2010 10:00 AM EST 03/02/2010 10:42 AM EST Pro Mazariegos MD MICROBIOLOGY - [facility] ORDERABLES CERNER MILLENNIUM * URINALYSIS WITH MICROSCOPIC (03/02/2010 10:00 AM EST) Glucose, Urine Dipstick Negative Negative mg/dL [...] Urine Dipstick Clear Clear CERNER MILLENNIUM Specific [place] Urine Automated 1.005 1.002 - 1.030 CERNER MILLENNIUM Color, Urine Dipstick Yellow Yellow CERNER MILLENNIUM RBC, Urine <1 0 - 4 /HPF CERNER MILLENNIUM WBC, Urine Not Present 0 - 5 CERNER MILLENNIUM Urine specimen (specimen) 03/02/2010 10:00 AM EST 03/02/2010 10:50 AM EST Pro Pressley MD URINE ORDERABLES CERNER MILLENNIUM * (ABNORMAL) REFLEX LAB-NCDIFF (03/02/2010 7:45 AM EST) Segmented Neutrophils Manual 65 34 - 71 % CERNER MILLENNIUM Band % 8 0 - 12 % CERNER MILLENNIUM Lymphocyte Manual 13(L) 19 - 53 % CE RNER MILLENNIUM Monocyte Manual 4 4 - 13 % CERN ER MILLENNIUM Eosinophil Manual 2 0 - 7 % CE RNER MILLENNIUM Metamyelocyte Manual 1(H) 0 - 0 % CERNER MILLENNIUM Myelocyte Manual 7(H) 0 - 0 % CER NER MILLENNIUM Segs Absolute Manual 8.7(H) 1.5 - 6.3 x10(3)/mc L CERNER MILLENNIUM Band Abs 1.1(H) 0.2 - 0.6 x10(3)/mc L CERNER MILLENNIUM ANC 9.76(H) 1.50 - 6.30 x10(3)/mc L CERNER MILLENNIUM Lymph Absolute Manual 1.7 1.0 - 3.6 x10(3)/mc L CERNER MILLENNIUM Monocyte Absolute Manual 0.5 0.2 - 1.0 x10(3)/mc L CERNER MILLENNIUM Eos Absolute Manual 0.3 0.0 - 0.5 x10(3)/mc L CERNER MILLENNIUM [place] Absolute Manual 0.1(H) 0.0 - 0.0 x10(3)/mc L CERNER MILLENNIUM Myelo Absolute Manual 0.9(H) 0.0 - 0.0 x10(3)/mc L CERNER MILLENNIUM Total Cells Ct 100 CERNE R MILLENNIUM Plat estimate Normal CERNER MILLENNIUM RBC Morphology Abnormal CERNE R MILLENNIUM Polychromasia Present >5/HPF [facility] Blood specimen (specimen) 03/02/2010 7:45 AM EST 03/02/2010 7:51 AM EST Por Pressley MD HEMATOLOGY ORDERABLE S Performing Organization Address [facility] [place]/[facility] Co de Phone Number [facility] SVITLANABANNERIUM * PHOSPHORUS (03/02/2010 7:45 AM EST) Phosphorus 3.2 2.5 - 4.5 mg/dL [facility] SVITLANABANNERIUM Blood specimen (specimen) 03/02/2010 7:45 AM EST 03/02/2010 7:51 AM EST Pro Pressley MD CHEMISTRY ORDERABLES Performing Organization Address [facility] [place]/[facility] Phone Number [facility] SVITLANABANNERIUM * MAGNESIUM (03/02/2010 7:45 AM EST) Magnesium 0.80 0.69 - 1.07 mmol/L [facility] SVITLANABANNERIUM Blood specimen (specimen) 03/02/2010 7:45 AM EST 03/02/2010 7:51 AM EST Pro Pressley MD CHEMISTRY ORDERABLES Performing Organization Address [facility] [place]/[facility] Phone Number [facility] SVITLANABANNERIUM * (ABNORMAL) CREATININE, SERUM (03/02/2010 7:45 AM EST) Creatinine 0.49(L) 0.70 - 1.20 mg/dL [facility] Est Glomerular Filtration Rate >60 >=60 [...] disease. References: http://nkdep.nih.gov/resources/NKDEP_Suggestn4Labs_0606_508.pdf http://www.kidney.org/professionals/kls/pdf/faq_gfr.pdf Blood specimen (specimen) 03/02/2010 7:45 AM EST 03/02/2010 7:51 AM EST Pro Pressley MD CHEMISTRY ORDERABLES Performing Organization Address [facility] [place]/[facility] de Phone Number CERNER MILLENNIUM * (ABNORMAL) BUN (03/02/2010 7:45 AM EST) Blood Urea Nitrogen 6(L) 8 - 18 mg/dL CERNER MILLENNIUM Blood specimen (specimen) 03/02/2010 7:45 AM EST 03/02/2010 7:51 AM EST Pro Pressley MD CHEMISTRY ORDERABLES Performing Organization Address [facility] [place]/[facility] de Phone Number CERNER MILLENNIUM * ELECTROLYTE PANEL (03/02/2010 7:45 AM EST) Sodium 136 135 - 145 [...] - 31 mmol/L CERNER MILLENNIUM Anion Gap 6 5 - 15 mmol/L CERNER MILLENNIUM Blood specimen (specimen) 03/02/2010 7:45 AM EST 03/02/2010 7:51 AM EST Pro Pressley MD CHEMISTRY ORDERABLES Performing Organization Address City/[facility]/ZIP Co de Phone Number CERCHAPINCITO MILLENNIUM * (ABNORMAL) CBC (03/02/2010 7:45 AM EST) White Blood Cell 13.4(H) 4.0 - 10.0 x10(3)/mc L CERNER MILLENNIUM Red Blood Cell 3.03(L) 3.93 - 5.22 x10(6)/mc L CERNER MILLENNIUM Hemoglobin 8.5(L) 11.2 - 15.7 gm/dL CERNER MILLENNIUM Hematocrit 26.9(L) 34.0 - 45.0 % CERNER MILLENNIUM Mean Cell Volume 88.8 79.0 - 94.0 fL CERNER MILLENNIUM Mean Cell Hemoglobin 28.1 26.6 - 32.2 pg CERNER MILLENNIUM Mean Cell Hemoglobin Concentration 31.6(L) 32.0 - 36.5 gm/dL CERNER MILLENNIUM Platelet 334 145 - 370 x10(3)/mc L CERNER MILLENNIUM RDW Standard Deviation 50.8(H) 35.0 - 46.0 fL CERNER MILLENNIUM RDW coefficient of variation 15.9(H) 10.9 - 14.4 % CERNER MILLENNIUM Mean Platelet Volume 8.2(L) 9.0 - 12.0 fL CERNER MILLENNIUM Blood specimen (specimen) 03/02/2010 7:45 AM EST 03/02/2010 7:51 AM EST Pro Pressley MD HEMATOLOGY ORDERABLE S [facility] * (ABNORMAL) POCT GLUCOMETER ORDER (LAB USE ONLY) (03/01/2010 3:59 PM EST) Glucose, POC 114(H) 70 - 110 mg/dL CERNER MILLENNIUM Comment: Supplemental ranges: <110 mg/dL before meals <200 mg/dL all other times of the day Blood specimen (specimen) 03/01/2010 3:59 PM EST 03/01/2010 3:59 PM EST Pro Mazariegos MD POINT OF CARE TE ST ORDERABLES Performing Organization Address [facility] [place] Co de Phone Number [facility] * (ABNORMAL) POCT GLUCOMETER ORDER (LAB USE ONLY) (03/01/2010 12:03 PM EST) Glucose, POC 175(H) 70 - 110 mg/dL [facility] Comment: Supplemental ranges: <110 mg/dL before meals <200 mg/dL all other times of the day Blood specimen (specimen) 03/01/2010 12:03 PM EST 03/01/2010 12:03 PM EST Pro Mazariegos MD POINT OF CARE TE ST ORDERABLES Performing Organization Address [facility] [place] de Phone Number [facility] * BLOOD CULTURE (03/01/2010 10:42 AM EST) Blood Culture ? Patient Name: KYLEIGH CABALLERO ? Ordered By: JOSE LUIS HAIDER ? MR#: [id number] ?LOC: ??4WST ? /Sex: ??1950 (60 years), ? Female ? PROCEDURE: Blood Culture ?SOURCE: Blood Pedi ? COLLECTED: 03/01/2010 10:42 ? BODY SITE: Right Hand ? STARTED: 03/01/2010 11:01 ?FREE TEXT SOURCE: #2 ? FINAL REPORT ? Final Report ? Verified:2009 23:04 ? No growth at 5 days. ? PRELIMINARY REPORT ? Preliminary Report ? Verified:2009 15:05 ? No growth at 4 days. ? [facility] Blood specimen (specimen) STRUCTURE OF RIGHT HAND / Unknown 03/01/2010 10:42 AM EST 03/01/2010 10:58 AM EST Comment:#2 Jose Luis Haider MD MICROBIOLOGY - BLOOD ORDERABLES [facility] * BLOOD CULTURE (03/01/2010 10:40 AM EST) Blood Culture ? Patient Name: KYLEIGH CABALLERO ? Ordered By: JOSE LUIS HAIDER ? MR#: [id number] ?LOC: ??4WST ? /Sex: ??1950 (60 years), ? Female ? PROCEDURE: Blood Culture ?SOURCE: Blood ? COLLECTED: 03/01/2010 10:40 ? BODY SITE: Left Hand ? STARTED: 03/01/2010 11:01 ?FREE TEXT SOURCE: #1 ? FINAL REPORT ? Final Report ? Verified:2009 23:04 ? No growth at 5 days. ? PRELIMINARY REPORT ? Preliminary Report ? Verified:2009 15:05 ? No growth at 4 days. ? CERNER MILLENNIUM Blood specimen (specimen) STRUCTURE OF LEFT HAND / Unknown 03/01/2010 10:40 AM EST 03/01/2010 10:58 AM EST Comment:#1 Jose Luis Haider MD MICROBIOLOGY - BLOOD ORDERABLES [facility] MILLENNIUM * (ABNORMAL) REFLEX LAB-NCDIFF (03/01/2010 2:42 AM EST) Segmented Neutrophils Manual 65 34 - 71 % CERNER MILLENNIUM Lymphocyte Manual 23 19 - 53 % CE RNER MILLENNIUM Monocyte Manual 3(L) 4 - 13 % CERN ER MILLENNIUM Metamyelocyte Manual 5(H) 0 - 0 % CERNER MILLENNIUM Myelocyte Manual 4(H) 0 - 0 % CER NER MILLENNIUM Segs Absolute Manual 8.2(H) 1.5 - 6.3 x10(3)/mc L CERNER MILLENNIUM ANC 8.19 x10(3)/mc L CERNER MILLENNIUM Lymph Absolute Manual 2.9 1.0 - 3.6 x10(3)/mc L CERNER MILLENNIUM Monocyte Absolute Manual 0.4 0.2 - 1.0 x10(3)/mc L CERNER MILLENNIUM [place] Absolute Manual 0.6(H) 0.0 - 0.0 x10(3)/mc L CERNER MILLENNIUM Myelo Absolute Manual 0.5(H) 0.0 - 0.0 x10(3)/mc L CERNER MILLENNIUM Total Cells Ct 100 CERNE R MILLENNIUM Plat estimate Normal CERNER MILLENNIUM RBC Morphology Abnormal CERNE R MILLENNIUM Polychromasia Present >5/HPF CERNER MILLENNIUM Blood specimen (specimen) 03/01/2010 2:42 AM EST 03/01/2010 2:50 AM EST Wilman Jones Jr., MD HEMATOLOGY ORDER IGOR Performing Organization Address [facility] de Phone Number CERNER MILLENNIUM * PHOSPHORUS (03/01/2010 2:42 AM EST) Phosphorus 2.7 2.5 - 4.5 mg/dL CERNER MILLENNIUM Blood specimen (specimen) 03/01/2010 2:42 AM EST 03/01/2010 2:50 AM EST Wilman Jones Jr., MD CHEMISTRY ORDERA BLES Performing Organization Address [facility] de Phone Number CERNER MILLENNIUM * MAGNESIUM (03/01/2010 2:42 AM EST) Pathologist [facility] Magnesium 0.86 0.69 - 1.07 mmol/L CERNER MILLENNIUM Blood specimen (specimen) 03/01/2010 2:42 AM EST 03/01/2010 2:50 AM EST Wilman Jones Jr., MD CHEMISTRY ORDERA BLETrupti Performing Organization Address [facility] de Phone Number CERNER MILLENNIUM * (ABNORMAL) ELECTROLYTE PANEL (03/01/2010 2:42 AM EST) Sodium 133(L) 135 - 145 mmol/L CERNER MILLENNIUM Potassium [...] 8 5 - 15 mmol/L CERNER MILLENNIUM Blood specimen (specimen) 03/01/2010 2:42 AM EST 03/01/2010 2:50 AM EST Wilman Jones Jr., MD CHEMISTRY ORDERA BLES [facility] MILLENNI[facility] * (ABNORMAL) CREATININE, SERUM (03/01/2010 2:42 AM EST) Creatinine 0.52(L) 0.70 - 1.20 mg/dL CERNER MILLENNIUM Est [...] disease. References: http://nkdep.nih.gov/resources/NKDEP_Suggestn4Labs_0606_508.pdf http://www.kidney.org/professionals/kls/pdf/faq_gfr.pdf Blood specimen (specimen) 03/01/2010 2:42 AM EST 03/01/2010 2:50 AM EST Wilman Jones Jr., MD CHEMISTRY ORDERMichelle SANCHES CERNER MILLENNIUM * (ABNORMAL) BUN (03/01/2010 2:42 AM EST) Blood Urea Nitrogen 6(L) 8 - 18 mg/dL CERNER MILLENNIUM Blood specimen (specimen) 03/01/2010 2:42 AM EST 03/01/2010 2:50 AM EST Wilman Jones Jr., MD CHEMISTRY ORDERA BLETrupti CERNER MILLENNIUM * (ABNORMAL) CBC (03/01/2010 2:42 AM EST) White Blood Cell 12.6(H) 4.0 - 10.0 x10(3)/mc L CERNER MILLENNIUM Red Blood Cell 3.07(L) 3.93 - 5.22 x10(6)/mc L CERNER MILLENNIUM Hemoglobin 8.5(L) 11.2 - 15.7 gm/dL CERNER MILLENNIUM Hematocrit 27.2(L) 34.0 - 45.0 % CERNER MILLENNIUM Mean Cell Volume 88.6 79.0 - 94.0 fL CERNER MILLENNIUM Mean Cell Hemoglobin 27.7 26.6 - 32.2 pg CERNER MILLENNIUM Mean Cell Hemoglobin Concentration 31.3(L) 32.0 - 36.5 gm/dL CERNER MILLENNIUM Platelet 373(H) 145 - 370 x10(3)/mc L CERNER MILLENNIUM RDW Standard Deviation 49.7(H) 35.0 - 46.0 fL CERNER MILLENNIUM RDW coefficient of variation 15.4(H) 10.9 - 14.4 % CERNER MILLENNIUM Mean Platelet Volume 8.2(L) 9.0 - 12.0 fL CERNER MILLENNIUM Blood specimen (specimen) 03/01/2010 2:42 AM EST 03/01/2010 2:50 AM EST Wilman Jones Jr., MD HEMATOLOGY ORDER IGOR CERNER MILLENNIUM * POCT GLUCOMETER ORDER (LAB USE ONLY) (03/01/2010 12:02 AM EST) Glucose, POC 87 70 - 110 mg/dL CERNER MILLENNIUM Comment: Supplemental ranges: <110 mg/dL before meals <200 mg/dL all other times of the day Blood specimen (specimen) 03/01/2010 12:02 AM EST 03/01/2010 12:02 AM EST Pro Mazariegos MD POINT OF CARE TE [facility] ORDERABLES Performing Organization Address [facility] Co de Phone Number CERNER MILLENNIUM * (ABNORMAL) POCT GLUCOMETER ORDER (LAB USE ONLY) (02/28/2010 7:57 PM EST) Glucose, POC 135(H) 70 - 110 mg/dL [facility] MILLENNIUM Comment: Supplemental ranges: <110 mg/dL before meals <200 mg/dL all other times of the day Blood specimen (specimen) 02/28/2010 7:57 PM EST 02/28/2010 7:57 PM EST Pro Mazariegos MD POINT OF CARE TE ST ORDERABLES Performing Organization Address [facility] Co de Phone Number CERNER MILLENNIUM * REFLEX LAB-SCAN (02/28/2010 6:20 AM EST) Plat estimate Increased CERNER MILLENNIUM RBC Morphology Abnormal CERNE R MILLENNIUM Hypochromia Slight CERNER MILLENNIUM Blood specimen (specimen) 02/28/2010 6:20 AM EST 02/28/2010 6:37 AM EST Wilman Jones Jr., MD HEMATOLOGY ORDER IGOR Performing Organization Address City/[facility]/ZIP Co de Phone Number CERNER MILLENNIUM * (ABNORMAL) REFLEX LAB-A-DIFF (02/28/2010 6:20 AM EST) Neutrophil % 56.0 34.0 - 71.0 % CERNER MILLENNIUM Neutrophil Absolute 6.82(H) 1.50 - 6.30 x10(3)/mc L CERNER MILLENNIUM Lymph % 14.1(L) 19.0 - 53.0 % CERNER MILLENNIUM Lymphocytes Abs 1.7 1.0 - 3.6 x10(3)/mc L CERNER MILLENNIUM Monocyte % 7.1 4.0 - 13.0 % CERNER MILLENNIUM Monocyte Abs 0.9 0.2 - 1.0 x10(3)/mc L CERNER MILLENNIUM Eos % 0.9 0.0 - 7.0 % CERNER MILLENNIUM Eosinophils Abs 0.1 0.0 - 0.5 x10(3)/mc L CERNER MILLENNIUM Basophil % 1.6 0.0 - 2.0 % CERNER MILLENNIUM Baso Absolute 0.2 0.0 - 0.2 x10(3)/mc L CERNER MILLENNIUM Immature Gran % 20.30(H) 0.00 - 0.66 % CERNER MILLENNIUM Comment: Immature granulocytes(IG's)percentage and absolute count will include metamyelocytes, myelocytes, and promyelocytes. Blood smears from CBC's yielding IG's will be scanned manually for concordance. If this scan disagrees with the automated IG or if promyelocytes are noted, a manual differential will be performed. Immature Gran Absolute 2.47(H) 0.00 - 0.05 x10(3)/mc L TEMITOPE SHANEENNIUM Blood specimen (specimen) 02/28/2010 6:20 AM EST 02/28/2010 6:37 AM EST Wilman Jones Jr., MD HEMATOLOGY ORDER IGOR TEMITOPE SIEGELIUM * PHOSPHORUS (02/28/2010 6:20 AM EST) Phosphorus 2.5 2.5 - 4.5 mg/dL CERNER SVITLANAENNIUM Blood specimen (specimen) 02/28/2010 6:20 AM EST 02/28/2010 6:37 AM EST Wilman Jones Jr., MD CHEMISTRY ORDERA BLETrupti CERNER MILLENNIUM * MAGNESIUM (02/28/2010 6:20 AM EST) Magnesium 0.81 0.69 - 1.07 mmol/L CERNER MILLENNIUM Blood specimen (specimen) 02/28/2010 6:20 AM EST 02/28/2010 6:37 AM EST Wilman Jones Jr., MD CHEMISTRY ASHWINI SANCHES Performing Organization Address City/[facility] Co de Phone Number CERNER MILLENNIUM * (ABNORMAL) ELECTROLYTE PANEL (02/28/2010 6:20 AM EST) Sodium 131(L) 135 - 145 mmol/L CERNER MILLENNIUM Potassium 3.3(L) 3.5 - 5.0 mmol/L CERNER [...] 8 5 - 15 mmol/L CERNER MILLENNIUM Blood specimen (specimen) 02/28/2010 6:20 AM EST 02/28/2010 6:37 AM EST Wilman Jones Jr., MD CHEMISTRY ASHWINI SANCHES CERNER MILLENNIUM * (ABNORMAL) CREATININE, SERUM (02/28/2010 6:20 AM EST) Creatinine 0.50(L) 0.70 - 1.20 mg/dL CERNER MILLENNIUM Est [...] disease. References: http://nkdep.nih.gov/resources/NKDEP_Suggestn4Labs_0606_508.pdf http://www.kidney.org/professionals/kls/pdf/faq_gfr.pdf Blood specimen (specimen) 02/28/2010 6:20 AM EST 02/28/2010 6:37 AM EST Wilman Jones Jr., MD CHEMISTRY ASHWINI SANCHES Performing Organization Address [facility] de Phone Number [facility] * (ABNORMAL) BUN (02/28/2010 6:20 AM EST) Blood Urea Nitrogen 7(L) 8 - 18 mg/dL [facility] Blood specimen (specimen) 02/28/2010 6:20 AM EST 02/28/2010 6:37 AM EST Wilman Jones Jr., MD CHEMISTRY ASHWINI SANCHES Performing Organization Address [facility] Co de Phone Number [facility] [employer] * (ABNORMAL) CBC (02/28/2010 6:20 AM EST) White Blood Cell 12.2(H) 4.0 - 10.0 x10(3)/mc L CERNER MILLENNIUM Red Blood Cell 3.10(L) 3.93 - 5.22 x10(6)/mc L CERNER MILLENNIUM Hemoglobin 8.6(L) 11.2 - 15.7 gm/dL CERNER MILLENNIUM Hematocrit 27.4(L) 34.0 - 45.0 % CERNER MILLENNIUM Mean Cell Volume 88.4 79.0 - 94.0 fL CERNER MILLENNIUM Mean Cell Hemoglobin 27.7 26.6 - 32.2 pg CERNER MILLENNIUM Mean Cell Hemoglobin Concentration 31.4(L) 32.0 - 36.5 gm/dL CERNER MILLENNIUM Platelet 377(H) 145 - 370 x10(3)/mc L CERNER MILLENNIUM RDW Standard Deviation 50.3(H) 35.0 - 46.0 fL CERNER MILLENNIUM RDW coefficient of variation 15.5(H) 10.9 - 14.4 % CERNER MILLENNIUM Mean Platelet Volume 8.2(L) 9.0 - 12.0 fL CERNER MILLENNIUM Blood specimen (specimen) 02/28/2010 6:20 AM EST 02/28/2010 6:37 AM EST Wilman Jones Jr., MD HEMATOLOGY ORDER IGOR Performing Organization Address City/[facility] Co de Phone Number [facility] * POCT GLUCOMETER ORDER (LAB USE ONLY) (02/28/2010 4:05 AM EST) Glucose, POC 91 70 - 110 mg/dL [facility] Comment: Supplemental ranges: <110 mg/dL before meals <200 mg/dL all other times of the day Blood specimen (specimen) 02/28/2010 4:05 AM EST 02/28/2010 4:05 AM EST Pro Mazariegos MD POINT OF CARE TE ST ORDERABLES [facility] * POCT GLUCOMETER ORDER (LAB USE ONLY) (02/27/2010 9:38 PM EST) Glucose, POC 89 70 - 110 mg/dL [facility] MILLEN[facility] Comment: Supplemental ranges: <110 mg/dL before meals <200 mg/dL all other times of the day Blood specimen (specimen) 02/27/2010 9:38 PM EST 02/27/2010 9:38 PM EST Pro Mazariegos MD POINT OF CARE TE ST ORDERABLES Performing Organization Address [facility] de Phone Number KRISTENCHAPINCITO SHANEENNIUM * (ABNORMAL) POCT GLUCOMETER ORDER (LAB USE ONLY) (02/27/2010 6:01 PM EST) Glucose, POC 128(H) 70 - 110 mg/dL TEMITOPE SHANEENNIUM Comment: Supplemental ranges: <110 mg/dL before meals <200 mg/dL all other times of the day Blood specimen (specimen) 02/27/2010 6:01 PM EST 02/27/2010 6:01 PM EST Pro Mazariegos MD POINT OF CARE TE ST ORDERABLES Performing Organization Address [facility] de Phone Number TEMITOPE SVITLANAENNIUM * (ABNORMAL) POCT GLUCOMETER ORDER (LAB USE ONLY) (02/27/2010 2:12 PM EST) Glucose, POC 111(H) 70 - 110 mg/dL TEMITOPE SIEGELIUM Comment: Supplemental ranges: <110 mg/dL before meals <200 mg/dL all other times of the day Blood specimen (specimen) 02/27/2010 2:12 PM EST 02/27/2010 2:12 PM EST Pro Mazariegos MD POINT OF CARE TE ST ORDERABLES Performing Organization Address [facility] de Phone Number TEMITOPE SHANEENNIUM * VANCOMYCIN, TROUGH (02/27/2010 11:50 AM EST) Vancomycin, Trough 9.0 mg/L C NOÉ MILLENNIUM Comment: Therapeutic range for complicated infections [...] CERN ER MILLENNIUM Vanc Tr Ds Time unknwon CERN ER MILLENNIUM Blood specimen (specimen) 02/27/2010 11:50 AM EST 02/27/2010 12:04 PM EST Wilman Jones Jr., MD CHEMISTRY ORDERA NATALY [facility] * POCT GLUCOMETER ORDER (LAB USE ONLY) (02/27/2010 10:02 AM EST) Glucose, POC 77 70 - 110 mg/dL [facility] Comment: Supplemental ranges: <110 mg/dL before meals <200 mg/dL all other times of the day Blood specimen (specimen) 02/27/2010 10:02 AM EST 02/27/2010 10:02 AM EST Pro Mazariegos MD POINT OF CARE TE ST ORDERABLES Performing Organization Address [facility] Co de Phone Number [facility] * POCT GLUCOMETER ORDER (LAB USE ONLY) (02/27/2010 5:37 AM EST) Glucose, POC 84 70 - 110 mg/dL [facility] Comment: Supplemental ranges: <110 mg/dL before meals <200 mg/dL all other times of the day Blood specimen (specimen) 02/27/2010 5:37 AM EST 02/27/2010 5:37 AM EST Pro Mazariegos MD POINT OF CARE TE ST ORDERABLES Performing Organization Address [facility] Co de Phone Number [facility] * POCT GLUCOMETER ORDER (LAB USE ONLY) (02/27/2010 3:56 AM EST) Glucose, POC 77 70 - 110 mg/dL CERNER MILLENNIUM Comment: Supplemental ranges: <110 mg/dL before meals <200 mg/dL all other times of the day Blood specimen (specimen) 02/27/2010 3:56 AM EST 02/27/2010 3:56 AM EST Pro Mazariegos MD POINT OF CARE TE ST ORDERABLES CERNER MILLENNIUM * (ABNORMAL) REFLEX LAB-NCDIFF (02/27/2010 3:50 AM EST) Segmented Neutrophils Manual 63 34 - 71 % CERNER MILLENNIUM Band % 11 0 - 12 % CERNER MILLENNIUM Lymphocyte Manual 11(L) 19 - 53 % CE RNER MILLENNIUM Monocyte Manual 5 4 - 13 % CERN ER MILLENNIUM Eosinophil Manual 1 0 - 7 % CE RNER MILLENNIUM Metamyelocyte Manual 9(H) 0 - 0 % CERNER MILLENNIUM Segs Absolute Manual 7.0(H) 1.5 - 6.3 x10(3)/mc L CERNER MILLENNIUM Band Abs 1.2(H) 0.2 - 0.6 x10(3)/mc L CERNER MILLENNIUM ANC 8.17 x10(3)/mc L CERNER MILLENNIUM Lymph Absolute Manual 1.2 1.0 - 3.6 x10(3)/mc L CERNER MILLENNIUM Monocyte Absolute Manual 0.6 0.2 - 1.0 x10(3)/mc L CERNER MILLENNIUM Eos Absolute Manual 0.1 0.0 - 0.5 x10(3)/mc L CERNER MILLENNIUM [place] Absolute Manual 1.0(H) 0.0 - 0.0 x10(3)/mc L CERNER MILLENNIUM Total Cells Ct 100 CERNE R MILLENNIUM Plat estimate Normal CERNER MILLENNIUM RBC Morphology Normal CERNE R MILLENNIUM Blood specimen (specimen) 02/27/2010 3:50 AM EST 02/27/2010 4:02 AM EST Wilman Jones Jr., MD HEMATOLOGY ORDER IGOR CERNER MILLENNIUM * ELECTROLYTE PANEL (02/27/2010 3:50 AM EST) Sodium 135 135 - 145 mmol/L CERNER [...] - 31 mmol/L CERNER MILLENNIUM Anion Gap 7 5 - 15 mmol/L CERNER MILLENNIUM Blood specimen (specimen) 02/27/2010 3:50 AM EST 02/27/2010 4:02 AM EST Wilman Jones Jr., MD CHEMISTRY ORDERA [facility] TEMITOPE GAUTAM * (ABNORMAL) CREATININE, SERUM (02/27/2010 3:50 AM EST) Creatinine 0.58(L) 0.70 - 1.20 mg/dL CERNER MILLENNIUM Est [...] disease. References: http://nkdep.nih.gov/resources/NKDEP_Suggestn4Labs_0606_508.pdf http://www.kidney.org/professionals/kls/pdf/faq_gfr.pdf Blood specimen (specimen) 02/27/2010 3:50 AM EST 02/27/2010 4:02 AM EST Wilman Jones Jr., MD CHEMISTRY ORDERA BLES CERNER MILLENNIUM * BUN (02/27/2010 3:50 AM EST) Blood Urea Nitrogen 11 8 - 18 mg/dL CERNER MILLENNIUM Blood specimen (specimen) 02/27/2010 3:50 AM EST 02/27/2010 4:02 AM EST Wilman Jones Jr., MD CHEMISTRY ORDERA BLES CERNER MILLENNIUM * (ABNORMAL) CBC (02/27/2010 3:50 AM EST) White Blood Cell 11.0(H) 4.0 - 10.0 x10(3)/mc L CERNER MILLENNIUM Red Blood Cell 2.94(L) 3.93 - 5.22 x10(6)/mc L CERNER MILLENNIUM Hemoglobin 8.2(L) 11.2 - 15.7 gm/dL CERNER MILLENNIUM Hematocrit 26.3(L) 34.0 - 45.0 % CERNER MILLENNIUM Mean Cell Volume 89.5 79.0 - 94.0 fL CERNER MILLENNIUM Mean Cell Hemoglobin 27.9 26.6 - 32.2 pg CERNER MILLENNIUM Mean Cell Hemoglobin Concentration 31.2(L) 32.0 - 36.5 gm/dL CERNER MILLENNIUM Platelet 376(H) 145 - 370 x10(3)/mc L CERNER MILLENNIUM RDW Standard Deviation 50.1(H) 35.0 - 46.0 fL CERNER MILLENNIUM RDW coefficient of variation 15.4(H) 10.9 - 14.4 % CERNER MILLENNIUM Mean Platelet Volume 8.3(L) 9.0 - 12.0 fL CERNER MILLENNIUM Blood specimen (specimen) 02/27/2010 3:50 AM EST 02/27/2010 4:02 AM EST Wilman Jones Jr., MD HEMATOLOGY ORDER IGOR Performing Organization Address City/State/[facility] Co de Phone Number [facility] * POCT GLUCOMETER ORDER (LAB USE ONLY) (02/27/2010 2:02 AM EST) Glucose, POC 75 70 - 110 mg/dL [facility] Comment: Supplemental ranges: <110 mg/dL before meals <200 mg/dL all other times of the day Blood specimen (specimen) 02/27/2010 2:02 AM EST 02/27/2010 2:02 AM EST Pro Mazariegos MD POINT OF CARE TE ST ORDERABLES Performing Organization Address [facility] Phone Number [facility] * POCT GLUCOMETER ORDER (LAB USE ONLY) (02/27/2010 12:09 AM EST) Glucose, POC 87 70 - 110 mg/dL [facility] Comment: Supplemental ranges: <110 mg/dL before meals <200 mg/dL all other times of the day Blood specimen (specimen) 02/27/2010 12:09 AM EST 02/27/2010 12:09 AM EST Pro Mazariegos MD POINT OF CARE TE ST ORDERABLES Performing Organization Address [facility] de Phone Number [facility] * POCT GLUCOMETER ORDER (LAB USE ONLY) (02/26/2010 10:30 PM EST) Glucose, POC 83 70 - 110 mg/dL [facility] Comment: Supplemental ranges: <110 mg/dL before meals <200 mg/dL all other times of the day Blood specimen (specimen) 02/26/2010 10:30 PM EST 02/26/2010 10:30 PM EST Pro Mazariegos MD POINT OF CARE TE ST ORDERABLES Performing Organization Address [facility] de Phone Number [facility] [employer] * (ABNORMAL) POCT GLUCOMETER ORDER (LAB USE ONLY) (02/26/2010 9:25 PM EST) Glucose, POC 112(H) 70 - 110 mg/dL [facility] [employer]BANNERIUM Comment: Supplemental ranges: <110 mg/dL before meals <200 mg/dL all other times of the day Blood specimen (specimen) 02/26/2010 9:25 PM EST 02/26/2010 9:25 PM EST Pro Mazariegos MD POINT OF CARE TE ST ORDERABLES Performing Organization Address [facility] de Phone Number [facility] [employer] * (ABNORMAL) POCT GLUCOMETER ORDER (LAB USE ONLY) (02/26/2010 8:36 PM EST) Glucose, POC 62(L) 70 - 110 mg/dL [facility] [employer]ENNIUM Comment: Supplemental ranges: <110 mg/dL before meals <200 mg/dL all other times of the day Blood specimen (specimen) 02/26/2010 8:36 PM EST 02/26/2010 8:36 PM EST Pro Mazariegos MD POINT OF CARE TE ST ORDERABLES Performing Organization Address [facility] de Phone Number [facility] [employer]ENNIUM * POCT GLUCOMETER ORDER (LAB USE ONLY) (02/26/2010 12:13 PM EST) Glucose, POC 79 70 - 110 mg/dL [facility] MILLENNIUM Comment: Supplemental ranges: <110 mg/dL before meals <200 mg/dL all other times of the day Blood specimen (specimen) 02/26/2010 12:13 PM EST 02/26/2010 12:13 PM EST Pro Mazariegos MD POINT OF CARE TE ST ORDERABLES [facility]ERCHAPINCITO SHANEENNIUM * (ABNORMAL) REFLEX LAB-BLOOD GAS 2 ARTERIAL (02/26/2010 4:54 AM EST) pH, Arterial 7.46(H) CERNER MILLENNIUM PCO2, Arterial 39 mmHg CERNE R MILLENNIUM PO2, Arterial 59(L) mmHg CERNER MILLENNIUM Bicarbonate, Arterial 27.2(H) mmol/L CERNER MILLENNIUM Base Excess, Arterial 3.4(H) mmol/L CERNER MILLENNIUM Hgb Blood Gas 9.2(L) gm/dL CERNER MILLENNIUM Oxyhemoglobin, Arterial 90.3(L) % CERNER MILLENNIUM Carboxyhemoglob in, Arterial 1.6 % CERNER MILLENNIUM Comment: Nonsmokers: 0.5-1.5% COHB Smokers: Variable, but usually less than 10% Toxic: 20-30% COHB Lethal: Greater than 60% COHB Methemoglobin, Arterial 0.5 % CERNER MILLENNIUM Na Whole Blood 133(L) mmol/L CERNE R MILLENNIUM K Whole Blood 4.1 mmol/L CERNER MILLENNIUM Comment: Please note: Patients with WBC >100,000 may have falsely elevated Potassium levels. Contact the Clinical Chemistry Laboratory if there are any questions. ICa Whole Blood 1.11(L) mmol/L CERN ER MILLENNIUM Comment: Note: Total bilirubin higher than 20 mg/dL may lead to falsely low ionized calcium. CL Whole Blood 104 mmol/L CERNE R MILLENNIUM Gluc Whole Bld 90 mg/dL CERNE R MILLENNIUM Comment:Diabetes: >=200 mg/d L plus symptoms. FIO2 Art 30 % CERNER MILLENNIUM Blood Gas Source Arterial CERNER MILLENNIUM Blood specimen (specimen) 02/26/2010 4:54 AM EST 02/26/2010 4:54 AM EST Pro Mazariegos MD POINT OF CARE TE ST ORDERABLES CERNER MILLENNIUM * REFLEX LAB-SCAN (02/26/2010 4:15 AM EST) Plat estimate Increased CERNER SVITLANAENNIUM RBC Morphology Normal CERNE R SVITLANAENNIUM Blood specimen (specimen) 02/26/2010 4:15 AM EST 02/26/2010 4:25 AM EST Judah Lindsey MD HEMATOLOGY ORDERABLE S [facility]ITOPE SIEGELIUM * (ABNORMAL) REFLEX LAB-A-DIFF (02/26/2010 4:15 AM EST) Neutrophil % 69.1 34.0 - 71.0 % CERNER MILLENNIUM Neutrophil Absolute 8.00(H) 1.50 - 6.30 x10(3)/mc L CERNER MILLENNIUM Lymph % 13.1(L) 19.0 - 53.0 % CERNER MILLENNIUM Lymphocytes Abs 1.5 1.0 - 3.6 x10(3)/mc L CERNER MILLENNIUM Monocyte % 10.6 4.0 - 13.0 % CERNER MILLENNIUM Monocyte Abs 1.2(H) 0.2 - 1.0 x10(3)/mc L CERNER MILLENNIUM Eos % 1.2 0.0 - 7.0 % CERNER MILLENNIUM Eosinophils Abs 0.1 0.0 - 0.5 x10(3)/mc L CERNER MILLENNIUM Basophil % 0.8 0.0 - 2.0 % CERNER MILLENNIUM Baso [...] differential will be performed. Immature Gran Absolute 0.60(H) 0.00 - 0.05 x10(3)/mc L CERNER MILLENNIUM Blood specimen (specimen) 02/26/2010 4:15 AM EST 02/26/2010 4:25 AM EST Judah Lindsey MD HEMATOLOGY ORDERABLE S Performing Organization Address [facility] Co de Phone Number TEMITOPE SHANEENNIUM * (ABNORMAL) ELECTROLYTE PANEL (02/26/2010 4:15 AM EST) Sodium 131(L) 135 - 145 mmol/L CERNER MILLENNIUM Potassium Not Perf 3.5 - 5.0 mmol/L CERNER MILLENNIUM Comment: Specimen hemolyzed. Called by: [facility], Read back by: Bella Pop, Date/Time:02/26/10 05:07. Please note: ??Patients with WBC >100,000 may have falsely elevated Potassium levels. ??For accurate Potassium quantification in these patients send serum separator tube (gold top) for subsequent determinations. ??Contact the Clinical Chemistry Laboratory if there are any questions. Chloride 100 98 - 107 mmol/L CERNER MILLENNIUM Carbon Dioxide 25 22 - 31 mmol/L CERNER MILLENNIUM Anion Gap 6 5 - 15 mmol/L CERNER MILLENNIUM Blood specimen (specimen) 02/26/2010 4:15 AM EST 02/26/2010 4:25 AM EST Judah Lindsey MD CHEMISTRY ORDERABLES Performing Organization Address [facility] Co de Phone Number TEMITOPE GAUTAM * (ABNORMAL) CREATININE, SERUM (02/26/2010 4:15 AM EST) Creatinine 0.60(L) 0.70 - 1.20 [...] disease. References: http://nkdep.nih.gov/resources/NKDEP_Suggestn4Labs_0606_508.pdf http://www.kidney.org/professionals/kls/pdf/faq_gfr.pdf Blood specimen (specimen) 02/26/2010 4:15 AM EST 02/26/2010 4:25 AM EST Judah Lindsey MD CHEMISTRY ORDERABLES Performing Organization Address [facility] de Phone Number TEMITOPE [employer]ENNIUM * (ABNORMAL) CALCIUM (02/26/2010 4:15 AM EST) Calcium 8.1(L) 8.5 - 10.5 mg/dL CERNER MILLENNIUM Blood specimen (specimen) 02/26/2010 4:15 AM EST 02/26/2010 4:25 AM EST Judah Lindsey MD CHEMISTRY ORDERABLES Performing Organization Address [facility] de Phone Number TEMITOPE SHANEENNIUM * BUN (02/26/2010 4:15 AM EST) Blood Urea Nitrogen 8 8 - 18 mg/dL CERNER MILLENNIUM Blood specimen (specimen) 02/26/2010 4:15 AM EST 02/26/2010 4:25 AM EST Judah Lindsey MD CHEMISTRY ORDERABLES Performing Organization Address [facility] de Phone Number CERCHAPINCITO SHANEENNIUM * GLUCOSE, FASTING (02/26/2010 4:15 AM EST) Glucose Fasting 91 65 - 99 mg/dL [facility] Comment: ?Fasting* Glucose Interpretive Criteria Normal ?65-99 mg/dL Impaired Fasting glucose ?100-125 mg/dL Consistent with Diabetes Mellitus ? >or= 126 mg/dL *Fasting is defined as no caloric intake for at least 8 hours In the absence of unequivocal hyperglycemia a plasma glucose value of >or= 126 mg/dL should be repeated on a subsequent day. Diagnosis and Classification of Diabetes Mellitus, Position Statement from the [place] [employer]. ??Diabetes Care, Volume 33, Supplement 1, Apr 2009 Blood specimen (specimen) 02/26/2010 4:15 AM EST 02/26/2010 4:25 AM EST Judah Lindsey MD CHEMISTRY ORDERABLES Performing Organization Address [facility] de Phone Number [facility] * PHOSPHORUS (02/26/2010 4:15 AM EST) Phosphorus 3.7 2.5 - 4.5 mg/dL [facility] Blood specimen (specimen) 02/26/2010 4:15 AM EST 02/26/2010 4:25 AM EST Judah Lindsey MD CHEMISTRY ORDERABLES Performing Organization Address [facility] de Phone Number [facility] * MAGNESIUM (02/26/2010 4:15 AM EST) Magnesium 0.91 0.69 - 1.07 mmol/L [facility] Blood specimen (specimen) 02/26/2010 4:15 AM EST 02/26/2010 4:25 AM EST Judah Lindsey MD CHEMISTRY ORDERABLES TEMITOPE SIEGELIUM * (ABNORMAL) CBC (02/26/2010 4:15 AM EST) White Blood Cell 11.6(H) 4.0 - 10.0 x10(3)/mc L CERNER MILLENNIUM Red Blood Cell 3.03(L) 3.93 - 5.22 x10(6)/mc L CERNER MILLENNIUM Hemoglobin 8.6(L) 11.2 - 15.7 gm/dL CERNER MILLENNIUM Hematocrit 26.4(L) 34.0 - 45.0 % CERNER MILLENNIUM Mean Cell Volume 87.1 79.0 - 94.0 fL CERNER MILLENNIUM Mean Cell Hemoglobin 28.4 26.6 - 32.2 pg CERNER MILLENNIUM Mean Cell Hemoglobin Concentration 32.6 32.0 - 36.5 gm/dL CERNER MILLENNIUM Platelet 440(H) 145 - 370 x10(3)/mc L CERNER MILLENNIUM RDW Standard Deviation 48.3(H) 35.0 - 46.0 fL CERNER MILLENNIUM RDW coefficient of variation 15.2(H) 10.9 - 14.4 % CERNER MILLENNIUM Mean Platelet Volume 9.0 9.0 - 12.0 fL CERNER MILLENNIUM Blood specimen (specimen) 02/26/2010 4:15 AM EST 02/26/2010 4:25 AM EST Judah Lindsey MD HEMATOLOGY ORDERABLE S TEMIT[facility] SIEGELIUM * (ABNORMAL) POCT GLUCOMETER ORDER (LAB USE ONLY) (02/26/2010 1:29 AM EST) Glucose, POC 114(H) 70 - 110 mg/dL CERNER MILLENNIUM Comment: Supplemental ranges: <110 mg/dL before meals <200 mg/dL all other times of the day Blood specimen (specimen) 02/26/2010 1:29 AM EST 02/26/2010 1:29 AM EST Pro Mazariegos MD POINT OF CARE TE ST ORDERABLES Performing Organization Address City/[facility]/ZIP Co de Phone Number TEMITOPE GAUTAM * (ABNORMAL) POCT GLUCOMETER ORDER (LAB USE ONLY) (02/25/2010 10:17 PM EST) Glucose, POC 124(H) 70 - 110 mg/dL [facility] Comment: Supplemental ranges: <110 mg/dL before meals <200 mg/dL all other times of the day Blood specimen (specimen) 02/25/2010 10:17 PM EST 02/25/2010 10:17 PM EST Pro Mazariegos MD POINT OF CARE TE ST ORDERABLES Performing Organization Address [facility] Co de Phone Number TEMITOPE SIEGELIUM * (ABNORMAL) POCT GLUCOMETER ORDER (LAB USE ONLY) (02/25/2010 3:06 PM EST) Glucose, POC 154(H) 70 - 110 mg/dL [facility] Comment: Supplemental ranges: <110 mg/dL before meals <200 mg/dL all other times of the day Blood specimen (specimen) 02/25/2010 3:06 PM EST 02/25/2010 3:06 PM EST Pro Mazariegos MD POINT OF CARE TE ST ORDERABLES Performing Organization Address [facility] Co de Phone Number TEMITOPE GAUTAM * REFLEX LAB-SCAN (02/25/2010 3:00 PM EST) Plat estimate Normal [facility] RBC Morphology Normal CERNE R MILLENNIUM Plat, Giant Less than 1 /HPF [facility] Blood specimen (specimen) 02/25/2010 3:00 PM EST 02/25/2010 3:51 PM EST Ashley Cameron MD HEMATOLOGY ORDERABLE S Performing Organization Address [facility]/ZIP Co de Phone Number TEMITOPE [facility] * (ABNORMAL) REFLEX LAB-A-DIFF (02/25/2010 3:00 PM EST) Neutrophil % 83.0(H) 34.0 - 71.0 % CERNER MILLENNIUM Neutrophil Absolute 9.89(H) 1.50 - 6.30 x10(3)/mc L CERNER MILLENNIUM Lymph % 5.5(L) 19.0 - 53.0 % CERNER MILLENNIUM Lymphocytes Abs 0.7(L) 1.0 - 3.6 x10(3)/mc L CERNER MILLENNIUM Monocyte % 7.3 4.0 - 13.0 % CERNER MILLENNIUM Monocyte Abs 0.9 0.2 - 1.0 x10(3)/mc L CERNER MILLENNIUM Eos % 0.3 0.0 - 7.0 % CERNER MILLENNIUM Eosinophils Abs 0.0 0.0 - 0.5 x10(3)/mc L CERNER MILLENNIUM Basophil % 0.3 0.0 - 2.0 % CERNER MILLENNIUM Baso Absolute 0.0 0.0 - 0.2 x10(3)/mc L CERNER MILLENNIUM Immature Gran % 3.60(H) 0.00 - 0.66 % CERNER MILLENNIUM Comment: Immature granulocytes(IG's)percentage and absolute count will include metamyelocytes, myelocytes, and promyelocytes. Blood smears from CBC's yielding IG's will be scanned manually for concordance. If this scan disagrees with the automated IG or if promyelocytes are noted, a manual differential will be performed. Immature Gran Absolute 0.43(H) 0.00 - 0.05 x10(3)/mc L CERNER MILLENNIUM Blood specimen (specimen) 02/25/2010 3:00 PM EST 02/25/2010 3:51 PM EST Ashley Cameron MD HEMATOLOGY ORDERABLE S TEMITOPE SIEGELIUM * PHOSPHORUS (02/25/2010 3:00 PM EST) Phosphorus 3.4 2.5 - 4.5 mg/dL CERNER MILLENNIUM Blood specimen (specimen) 02/25/2010 3:00 PM EST 02/25/2010 3:51 PM EST Ashley Cameron MD CHEMISTRY ORDERABLES CERCHAPINCITO SHANEENNIUM * MAGNESIUM (02/25/2010 3:00 PM EST) Magnesium 0.77 0.69 - 1.07 mmol/L CERNER MILLENNIUM Blood specimen (specimen) 02/25/2010 3:00 PM EST 02/25/2010 3:51 PM EST Ashley Cameron MD CHEMISTRY ORDERABLES Performing Organization Address [facility] Co de Phone Number CERCHAPINCITO SHANEENNIUM * (ABNORMAL) BASIC METABOLIC PANEL (NON-FASTING) (02/25/2010 3:00 PM EST) Glucose 152 <=199 mg/dL CERNER MILLENNIUM Comment:Diabetes: >=200 mg/d L plus symptoms Blood Urea Nitrogen 10 8 - 18 mg/dL CERNER MILLENNIUM Creatinine 0.67(L) 0.70 - 1.20 mg/dL CERNER MILLENNIUM Sodium 134(L) 135 - 145 mmol/L CERNER [...] 5 - 15 mmol/L CERNER MILLENNIUM Calcium 8.0(L) 8.5 - 10.5 mg/dL CERNER MILLENNIUM Est [...] disease. References: http://nkdep.nih.gov/resources/NKDEP_Suggestn4Labs_0606_508.pdf http://www.kidney.org/professionals/kls/pdf/faq_gfr.pdf Blood specimen (specimen) 02/25/2010 3:00 PM EST 02/25/2010 3:51 PM EST Ashley Cameron MD CHEMISTRY ORDERABLES Performing Organization Address [facility] de Phone Number SNAPCARD * (ABNORMAL) APTT (02/25/2010 3:00 PM EST) Partial Thromboplastin Time 38(H) 25 - 37 sec [facility] [employer] Comment: Recommended therapeutic PTT range for full dose unfractionated heparin is 80-114 seconds. Blood specimen (specimen) 02/25/2010 3:00 PM EST 02/25/2010 3:51 PM EST Ashley Cameron MD HEMATOLOGY ORDERABLE S Performing Organization Address [facility] de Phone Number [facility] [employer] * (ABNORMAL) PROTIME-INR (02/25/2010 3:00 PM EST) Prothrombin Time 16.1(H) 11.8 - 15.0 sec [facility] [employer] Comment: [facility] Transfusion Committee Guidelines: INR less than 2.0, PTT less than OR equal to 43.5 seconds, or Fibrinogen greater than or equal to 100 mg/dl indicate adequate procoagulant activity for hemostasis in patients without underlying bleeding disorders. International Normalization Ratio 1.3(H) 0.9 - 1.1 CERNER MILLENNIUM Blood specimen (specimen) 02/25/2010 3:00 PM EST 02/25/2010 3:51 PM EST Ashley Cameron MD HEMATOLOGY ORDERABLE S Performing Organization Address [facility] Co de Phone Number TEMITOPE SHANEENNIUM * (ABNORMAL) CBC (02/25/2010 3:00 PM EST) White Blood Cell 11.9(H) 4.0 - 10.0 x10(3)/mc L CERNER MILLENNIUM Red Blood Cell 3.25(L) 3.93 - 5.22 x10(6)/mc L CERNER MILLENNIUM Hemoglobin 8.9(L) 11.2 - 15.7 gm/dL CERNER MILLENNIUM Hematocrit 28.5(L) 34.0 - 45.0 % CERNER MILLENNIUM Mean Cell Volume 87.7 79.0 - 94.0 fL CERNER MILLENNIUM Mean Cell Hemoglobin 27.4 26.6 - 32.2 pg CERNER MILLENNIUM Mean Cell Hemoglobin Concentration 31.2(L) 32.0 - 36.5 gm/dL CERNER MILLENNIUM Platelet 379(H) 145 - 370 x10(3)/mc L CERNER MILLENNIUM RDW Standard Deviation 48.6(H) 35.0 - 46.0 fL CERNER MILLENNIUM RDW coefficient of variation 15.1(H) 10.9 - 14.4 % CERNER MILLENNIUM Mean Platelet Volume 8.7(L) 9.0 - 12.0 fL CERNER MILLENNIUM Blood specimen (specimen) 02/25/2010 3:00 PM EST 02/25/2010 3:51 PM EST Ashley Cameron MD HEMATOLOGY ORDERABLE S Performing Organization Address [facility] Co de Phone Number TEMITOPE SIEGELIUM * (ABNORMAL) REFLEX LAB-BLOOD GAS 2 ARTERIAL (02/25/2010 2:57 PM EST) pH, Arterial 7.40 CERNER MILLENNIUM PCO2, Arterial 35 mmHg CERNE R MILLENNIUM PO2, Arterial 92 mmHg CERNER MILLENNIUM Bicarbonate, Arterial 21.5 mmol/L CERNER MILLENNIUM Base Excess, Arterial -3.3(L) mmol/L CERNER MILLENNIUM Hgb Blood Gas 9.2(L) gm/dL CERNER MILLENNIUM Oxyhemoglobin, Arterial 96.0 % CERNER MILLENNIUM Carboxyhemoglob in, Arterial 0.8 % CERNER MILLENNIUM Comment: Nonsmokers: 0.5-1.5% COHB Smokers: Variable, but usually less than 10% Toxic: 20-30% COHB Lethal: Greater than 60% COHB Methemoglobin, Arterial 0.3 % CERNER MILLENNIUM Na Whole Blood 133(L) mmol/L CERNE R MILLENNIUM K Whole Blood 3.6 mmol/L CERNER MILLENNIUM Comment: Please note: Patients with WBC >100,000 may have falsely elevated Potassium levels. Contact the Clinical Chemistry Laboratory if there are any questions. ICa Whole Blood 1.12(L) mmol/L CERN ER MILLENNIUM Comment: Note: Total bilirubin higher than 20 mg/dL may lead to falsely low ionized calcium. CL Whole Blood 103 mmol/L CERNE R MILLENNIUM Gluc Whole Bld 154 mg/dL CERNE R MILLENNIUM Comment:Diabetes: >=200 mg/d L plus symptoms. Blood Gas Source Arterial CERNER MILLENNIUM Blood specimen (specimen) 02/25/2010 2:57 PM EST 02/25/2010 2:57 PM EST Pro Mazariegos MD POINT OF CARE TE ST ORDERABLES CERNER MILLENNIUM * (ABNORMAL) REFLEX LAB-BLOOD GAS 2 ARTERIAL (02/25/2010 12:40 PM EST) pH, Arterial 7.40 CERNER MILLENNIUM PCO2, Arterial 38 mmHg CERNE R MILLENNIUM PO2, Arterial 55(L) mmHg CERNER MILLENNIUM Bicarbonate, Arterial 22.9 mmol/L CERNER MILLENNIUM Base Excess, Arterial -1.8 mmol/L CERNER MILLENNIUM Hgb Blood Gas 10.6(L) gm/dL CERNER MILLENNIUM Oxyhemoglobin, Arterial 87.4(L) % CERNER MILLENNIUM Carboxyhemoglob in, Arterial 0.8 % CERNER MILLENNIUM Comment: Nonsmokers: 0.5-1.5% COHB Smokers: Variable, but usually less than 10% Toxic: 20-30% COHB Lethal: Greater than 60% COHB Methemoglobin, Arterial 0.4 % CERNER MILLENNIUM Na Whole Blood 134(L) mmol/L CERNE R MILLENNIUM K Whole Blood 4.2 mmol/L CERNER MILLENNIUM Comment: Please note: Patients with WBC >100,000 may have falsely elevated Potassium levels. Contact the Clinical Chemistry Laboratory if there are any questions. ICa Whole Blood 1.15(L) mmol/L CERN ER MILLENNIUM Comment: Note: Total bilirubin higher than 20 mg/dL may lead to falsely low ionized calcium. CL Whole Blood 102 mmol/L CERNE R MILLENNIUM Gluc Whole Bld 170 mg/dL CERNE R MILLENNIUM Comment:Diabetes: >=200 mg/d L plus symptoms. Blood Gas Source Arterial CERNER MILLENNIUM Blood specimen (specimen) 02/25/2010 12:40 PM EST 02/25/2010 12:40 PM EST Pro Mazariegos MD POINT OF CARE TE ST ORDERABLES CERNER SVITLANAENNIUM * PATHOLOGY FLUID REVIEW REPORT (02/25/2010 11:32 AM EST) Fluid Review Report ? [facility] ? Provider: ?? ASHLEY CAMERON ?Pt. Name: ?? KYLEIGH CABALLERO ? Acc #: ?[id number] ? Pt. ? Col Date: ?? 02/25/2010 ?/Sex: ?1950,(60 years),Female ? Rec Date: ?? 02/25/2010 ?LOC: ?ISCU ? MORPHOLOGIC HEMATOLOGY: FLUID REVIEW ? ---Clinical Information--- ? Specimen: ? pleural mcs ? Clinical Diagnosis: ? Recurrent pneumonia and left pleural effusion ? Indication for Study: ?? MCS ? ---Preparation--- ? Microscopic Description: ?WBC/ul: ?[id number] ?RBC/uL ? Not performed ?200 cells counted on cytocentrifuge preparation. ? # ?Neut: ??182 ?Lymph: 12 ?Phag: ??3 ?Eos: ?? 3 ? ---Interpretation--- ? predominantly neutrophils. No malignant cells are seen on the ? cytocentrifuge prep. ? 02/26/10 ? SK ? 03/01/10 Verified by: ? Beverly SAAVEDRA, John ? Hematopathologist ? (Electronic Signature) ? The attending pathologist whose signature appears on this report has ? reviewed all diagnostic slides and has edited the gross and/or ? microscopic portion of the report in rendering the final pathologic ? diagnosis. ? ---Comment--- ? Case dictated by Holly Pimentel MD ??(Hematopathology Fellow) ? As the attending physician, I attest that I examined the histologic slides, ? and confirm Dr. Pimentel' diagnosis. TEMITOPE GAUTAM 02/25/2010 11:3 2 AM EST Ashley Cameron MD PATHOLOGY/CYTOLOGY Neha PANDYA TEMITOPE GAUTAM * PATHOLOGY SURGICAL PATHOLOGY FINAL REPORT (02/25/2010 11:14 AM EST) Surgical Pathology Report ? [facility] ? Provider: ?? RPO PRESSLEY ?? Pt. Name: ?? KYLEIGH CABALLERO ? Acc #: ?[id number] ?Pt. ? Col Date: ?? 02/25/2010 ?/Sex: ?1950,(60 years),Female ? Rec Date: ?? 02/25/2010 ?LOC: ?PICU ? SURGICAL PATHOLOGY ? ---Pathologic Diagnosis--- ? Pleura, left lung, fibrous peel: ?Acute fibrinous pleuritis with acute suppurative inflammation - see ? Comment. ? CR-0 ? 02/26/10 ? VMS ? 02/26/10 Verified by: ? Arpan DO, Myra Mujica. ? Pathologist ? (Electronic Signature) ? The attending pathologist whose signature appears on this report has ? reviewed all diagnostic slides and has edited the gross and/or ? microscopic portion of the report in rendering the final pathologic ? diagnosis. ? ---Comment--- ? Correlation with clinical microbiology cultures recommended. ? ---Microscopic Description--- ? Slides reviewed, microscopic description not recorded. ? ---Gross Description--- ? Labeled/Fixative : ? Fibrous peel left lung, fresh. ? Qty/Size/Weight: ?Multiple, aggregating 3.0 x 3.0 x 2.0 cm. ? Tissue Description: ?? Multiple meza-red fragments of soft tissue and lung ? pleura. ??The pleural surface is red and hemorrhagic. ? The deep surface appears pink, soft, and spongy. ??The specimen is serially ? sectioned and reveals a similarly meza, homogenous parenchyma. ? Sections/Process ing: ??The serial sections are submitted entirely in ? (A1-A4). ??(T4) ??aje/DPN ? ---Clinical Information--- ? Specimen Submitted: ? A - Fibrous peel left lung ? Clinical History: ? Recurrent complicated pneumonia, left-sided adhesions ? Clinical Diagnosis: ? Same TEMITOPE GAUTAM 02/25/2010 11:1 4 AM EST Pro Pressley MD PATHOLOGY/CYTOLOGY O RDERAMYRON TEMITOPE GAUTAM * REFLEX LAB-ANAEROBIC CULTURE (02/25/2010 10:45 AM EST) Anaerobic Culture ? Patient Name: KYLEIGH CABALLERO ? Ordered By: TIAGO BROWN ? MR#: [id number] ?LOC: ??ISCU ? /Sex: ??1950 (60 years), ? Female ? PROCEDURE: Anaerobic Culture ?SOURCE: Pleural Fl ? COLLECTED: 02/25/2010 10:45 ? STARTED: 02/25/2010 11:05 ? FINAL REPORT ? Final Report ? Verified:2009 12:09 ? No anaerobic organisms isolated ? PRELIMINARY REPORT ? Preliminary Report ? Verified:2009 14:27 ? No anaerobic organisms isolated to date ? TEMITOPE MILLENNIUM Pleural fluid specimen (specimen) 02/25/2010 10:45 AM EST 02/25/2010 11:00 AM EST Tiago Brown MD MICROBIOLOGY - GENER AL ORDERABLES TEMITOPE GAUTAM * FUNGUS CULTURE (02/25/2010 10:45 AM EST) Fungus Culture ? Patient Name: KYLEIGH CABALLERO ? Ordered By: TIAGO BROWN ? MR#: [id number] ?LOC: ??4WST ? /Sex: ??1950 (60 years), ? Female ? PROCEDURE: Fungus Culture ?SOURCE: Pleural Fl ? COLLECTED: 02/25/2010 10:45 ? STARTED: 02/25/2010 11:05 ? FINAL REPORT ? Final Report ? Verified:2009 08:01 ? No Fungus isolated ? PRELIMINARY REPORT ? Preliminary Report ? Verified:2009 07:53 ? No Fungus isolated to date ? CERNER MILLENNIUM Pleural fluid specimen (specimen) 02/25/2010 10:45 AM EST 02/25/2010 11:00 AM EST Tiago Brown MD MICROBIOLOGY - GENER AL ORDERABLES [facility] * FUNGAL STAIN (02/25/2010 10:45 AM EST) Calcofluor White Stain ? Patient Name: KYLEIGH CABALLERO ? Ordered By: TIAGO BROWN ? MR#: [id number] ?LOC: ??PICU ? /Sex: ??1950 (60 years), ? Female ? PROCEDURE: Calcofluor White Stain ?SOURCE: Pleural Fl ? COLLECTED: 02/25/2010 10:45 ? STARTED: 02/25/2010 11:05 ? STAINS / PREPARATIONS ? Calcofluor Stain Report ? Verified: 22:48 ? Calcofluor White Preparation: Negative ? [facility] Pleural fluid specimen (specimen) 02/25/2010 10:45 AM EST 02/25/2010 11:00 AM EST Tiago Brown MD MICROBIOLOGY - GENER AL ORDERABLES [facility] * AFB CULTURE (02/25/2010 10:45 AM EST) Acid Fast Bacilli Culture ? Patient Name: KYLEIGH CABALLERO ? Ordered By: TIAGO BROWN ? MR#: [id number] ?LOC: ??4WST ? /Sex: ??1950 (60 years), ? Female ? PROCEDURE: Acid Fast Bacilli Culture ?SOURCE: Pleural Fl ? COLLECTED: 02/25/2010 10:45 ? STARTED: 02/25/2010 11:05 ? STAINS / PREPARATIONS ? Acid Fast Stain Report ? Verified: 22:44 ? No Acid Fast Bacilli seen ? FINAL REPORT ? Final Report ? Verified: 011 12:03 ? No Acid Fast Bacilli isolated ? If active tuberculosis is suspected, the patient should be on [employer] ? PRECAUTIONS. ? Call [place] [phone]) for assistance if needed. ? PRELIMINARY REPORT ? Preliminary Report ? Verified: 010 14:01 ? No Acid Fast Bacilli isolated to date If active tuberculosis is suspected, ? the patient should be on ? [employer] PRECAUTIONS. Call [facility] [phone]) for assistance if needed. ? CERNER MILLENNIUM Pleural fluid specimen (specimen) 02/25/2010 10:45 AM EST 02/25/2010 11:00 AM EST Tiago Brown MD MICROBIOLOGY - GENER AL ORDERABLES [facility] * BODY FLUID CULTURE (02/25/2010 10:45 AM EST) Body Fluid Culture ? Patient Name: KYLEIGH CABALLERO ? Ordered By: TIAGO BROWN ? MR#: [id number] ?LOC: ??4WST ? /Sex: ??1950 (60 years), ? Female ? PROCEDURE: Body Fluid Culture ?SOURCE: Pleural Fl ? COLLECTED: 02/25/2010 10:45 ? STARTED: 02/25/2010 11:05 ? STAINS / PREPARATIONS ? Gram Stain Report ? Verified:02/25/2010 12:27 ? Cytocentrifuge Gram Stain performed ? White Blood Cells seen ? No microorganisms seen. ? FINAL REPORT ? Final Report ? Verified:03/03/2010 09:14 ? Rare Streptococcus milleri group ? Susceptibilities previously reported ? PRELIMINARY REPORT ? Preliminary Report ? Verified:02/28/2010 09:18 ? Rare possible Streptococcus milleri group ? CERNER MILLENNIUM Pleural fluid specimen (specimen) 02/25/2010 10:45 AM EST 02/25/2010 11:00 AM EST Tiago Brown MD MICROBIOLOGY - GENER AL ORDERABLES CERNER MILLENNIUM * BF CELL COUNT (02/25/2010 10:45 AM EST) Body Fluid Source Pleural, Left CERNER MILLENNIUM Color, Fld Yellow CERNER MILLENNIUM Appearance, Fld Hazy CERN ER MILLENNIUM Nucl Cell BF Ct 12,694 /mcl CERN ER MILLENNIUM Neutrophil BF See Note CERNER MILLENNIUM Comment: PRELIMINARY BODY FLUID DIFFERENTIAL Final report to follow. (See [id number] ) Neutrophil %:91 Lymphocyte %: 6 Macrophage %: 2 Mesothelial Cell %: Eosinophil %:1 Basophil %: Other Cells %: Total cells counted on cytocentrifuge differential smear: 200 Slide sent to Pathologist for smear review. See Fluid Review Report in [facility] under Hematology Reports for final interpretation. Body fluid specimen (specimen) 02/25/2010 10:45 AM EST 02/25/2010 11:09 AM EST Ashley Cameron MD BODY FLUIDS AND STOO LS ORDERABLES CERNER MILLENNIUM * REFLEX LAB-SCAN (02/25/2010 8:24 AM EST) Plat estimate Increased CERNER MILLENNIUM RBC Morphology Normal CERNE R MILLENNIUM Blood specimen (specimen) 02/25/2010 8:24 AM EST 02/25/2010 8:46 AM EST Ashley Cameron MD HEMATOLOGY ORDERABLE S Performing Organization Address City/State/[facility] Co de Phone Number CERNER MILLENNIUM * (ABNORMAL) REFLEX LAB-A-DIFF (02/25/2010 8:24 AM EST) Neutrophil % 76.7(H) 34.0 - 71.0 % CERNER MILLENNIUM Neutrophil Absolute 11.14(H) 1.50 - 6.30 x10(3)/mc L CERNER MILLENNIUM Lymph % 7.4(L) 19.0 - 53.0 % CERNER MILLENNIUM Lymphocytes Abs 1.1 1.0 - 3.6 x10(3)/mc L CERNER MILLENNIUM Monocyte % 8.6 4.0 - 13.0 % CERNER MILLENNIUM Monocyte Abs 1.2(H) 0.2 - 1.0 x10(3)/mc L CERNER MILLENNIUM Eos % 1.1 0.0 - 7.0 % CERNER MILLENNIUM Eosinophils Abs 0.2 0.0 - 0.5 x10(3)/mc L CERNER MILLENNIUM Basophil % 0.6 0.0 - 2.0 % CERNER MILLENNIUM Baso Absolute 0.1 0.0 - 0.2 x10(3)/mc L CERNER MILLENNIUM Immature Gran % 5.60(H) 0.00 - 0.66 % CERNER MILLENNIUM Comment: Immature granulocytes(IG's)percentage and absolute count will include metamyelocytes, myelocytes, and promyelocytes. Blood smears from CBC's yielding IG's will be scanned manually for concordance. If this scan disagrees with the automated IG or if promyelocytes are noted, a manual differential will be performed. Immature Gran Absolute 0.81(H) 0.00 - 0.05 x10(3)/mc L CERNER MILLENNIUM Blood specimen (specimen) 02/25/2010 8:24 AM EST 02/25/2010 8:46 AM EST Ashley Cameron MD HEMATOLOGY ORDERABLE S CERNER MILLENNIUM * CREATININE, SERUM (02/25/2010 8:24 AM EST) Creatinine 0.83 0.70 - 1.20 mg/dL CERNER MILLENNIUM Est [...] disease. References: http://nkdep.nih.gov/resources/NKDEP_Suggestn4Labs_0606_508.pdf http://www.kidney.org/professionals/kls/pdf/faq_gfr.pdf Blood specimen (specimen) 02/25/2010 8:24 AM EST 02/25/2010 8:46 AM EST Ashley Cameron MD CHEMISTRY ORDERABLES Performing Organization Address [facility] de Phone Number CERNER MILLENNIUM * BUN (02/25/2010 8:24 AM EST) Blood Urea Nitrogen 12 8 - 18 mg/dL CERNER MILLENNIUM Blood specimen (specimen) 02/25/2010 8:24 AM EST 02/25/2010 8:46 AM EST Ashley Cameron MD CHEMISTRY ORDERABLES Performing Organization Address [facility] Phone Number CERNER MILLENNIUM * ELECTROLYTE PANEL (02/25/2010 8:24 AM EST) Sodium 135 135 - 145 mmol/L CERNER [...] 11 5 - 15 mmol/L CERNER MILLENNIUM Blood specimen (specimen) 02/25/2010 8:24 AM EST 02/25/2010 8:46 AM EST Ashley Cameron MD CHEMISTRY ORDERABLES Performing Organization Address [facility] Co de Phone Number CERNER MILLENNIUM * (ABNORMAL) CBC (02/25/2010 8:24 AM EST) White Blood Cell 14.5(H) 4.0 - 10.0 x10(3)/mc L CERNER MILLENNIUM Red Blood Cell 3.77(L) 3.93 - 5.22 x10(6)/mc L CERNER MILLENNIUM Hemoglobin 10.7(L) 11.2 - 15.7 gm/dL CERNER MILLENNIUM Hematocrit 32.9(L) 34.0 - 45.0 % CERNER MILLENNIUM Mean Cell Volume 87.3 79.0 - 94.0 fL CERNER MILLENNIUM Mean Cell Hemoglobin 28.4 26.6 - 32.2 pg CERNER MILLENNIUM Mean Cell Hemoglobin Concentration 32.5 32.0 - 36.5 gm/dL CERNER MILLENNIUM Platelet 529(H) 145 - 370 x10(3)/mc L CERNER MILLENNIUM RDW Standard Deviation 47.3(H) 35.0 - 46.0 fL CERNER MILLENNIUM RDW coefficient of variation 14.9(H) 10.9 - 14.4 % CERNER MILLENNIUM Mean Platelet Volume 9.1 9.0 - 12.0 fL CERNER MILLENNIUM Blood specimen (specimen) 02/25/2010 8:24 AM EST 02/25/2010 8:46 AM EST Ashley Cameron MD HEMATOLOGY ORDERABLE S TEMITOPE GAUTAM * (ABNORMAL) POCT GLUCOMETER ORDER (LAB USE ONLY) (02/25/2010 6:16 AM EST) Glucose, POC 124(H) 70 - 110 mg/dL [facility] Comment: Supplemental ranges: <110 mg/dL before meals <200 mg/dL all other times of the day Blood specimen (specimen) 02/25/2010 6:16 AM EST 02/25/2010 6:16 AM EST Pro Mazariegos MD POINT OF CARE TE ST ORDERABLES [facility] * (ABNORMAL) POCT GLUCOMETER ORDER (LAB USE ONLY) (02/25/2010 12:14 AM EST) Glucose, POC 170(H) 70 - 110 mg/dL CERNER MILLENNIUM Comment: Supplemental ranges: <110 mg/dL before meals <200 mg/dL all other times of the day Blood specimen (specimen) 02/25/2010 12:14 AM EST 02/25/2010 12:14 AM EST Pro Mazariegos MD POINT OF CARE TE ST ORDERABLES Performing Organization Address [facility] de Phone Number CERCHAPINCITO SHANEBANNERIUM * (ABNORMAL) POCT GLUCOMETER ORDER (LAB USE ONLY) (02/24/2010 5:14 PM EST) Glucose, POC 164(H) 70 - 110 mg/dL [facility] MILLBANNERIUM Comment: Supplemental ranges: <110 mg/dL before meals <200 mg/dL all other times of the day Blood specimen (specimen) 02/24/2010 5:14 PM EST 02/24/2010 5:14 PM EST Pro Mazariegos MD POINT OF CARE TE ST ORDERABLES Performing Organization Address [facility] de Phone Number CERCHAPINCITO SIEGELIUM * (ABNORMAL) POCT GLUCOMETER ORDER (LAB USE ONLY) (02/24/2010 11:56 AM EST) Glucose, POC 124(H) 70 - 110 mg/dL [facility] Comment: Supplemental ranges: <110 mg/dL before meals <200 mg/dL all other times of the day Blood specimen (specimen) 02/24/2010 11:56 AM EST 02/24/2010 11:56 AM EST Pro Mazariegos MD POINT OF CARE TE ST ORDERABLES Performing Organization Address [facility] de Phone Number TEMITOPE SIEGELIUM * LOWER RESPIRATORY CULTURE (02/24/2010 9:30 AM EST) Lower Respiratory Culture ? Patient Name: KYLEIGH CABALLERO ? Ordered By: SHARMIN HINTON ? MR#: [id number] ?LOC: ??PICU ? /Sex: ??1950 (60 years), ? Female ? PROCEDURE: Lower Respiratory Culture ?SOURCE: Sputum ? COLLECTED: 02/24/2010 09:30 ? STARTED: 02/24/2010 10:34 ? STAINS / PREPARATIONS ? Gram Stain Report ? Verified:2009 13:53 ? Moderate White Blood Cells seen ? Few squamous epithelial cells seen ? Few Gram Positive Cocci in pairs seen ? Rare mixed bacterial morphotypes suggestive of normal upper respiratory ? micah ? FINAL REPORT ? Final Report ? Verified:2009 09:42 ? Rare Regina albicans ? Rare mixed bacterial morphotypes suggestive of normal upper respiratory ? micah ? PRELIMINARY REPORT ? Preliminary Report ? Verified:2009 13:20 ? Rare Regina albicans ? Rare mixed bacterial morphotypes suggestive of normal upper respiratory ? micah ? CERNER MILLENNIUM Sputum specimen (specimen) 02/24/2010 9:30 AM EST 02/24/2010 10:10 AM EST Sharmin Hinton MD MICROBIOLOGY - GENER AL ORDERABLES TEMITOPE GAUTAM * REFLEX LAB-SELECTED CELL SCREEN (02/24/2010 7:57 AM EST) Ab Screen Interp Previously identified Anti-E. No additional alloantibodies detected.* *Due to the presence of alloantibody(ies) additional time is required for preparation of Red Cell Products. See initial antibody identification report for additional information. TEMITOPE GAUTAM Blood specimen (specimen) 02/24/2010 7:57 AM EST 02/24/2010 8:02 AM EST Ashley Cameron MD BLOOD BANK LAB ORDER IGOR Performing Organization Address City/[facility] de Phone Number TEMITOPE GAUTAM * REFLEX LAB-ABORH TYPE MANUAL (02/24/2010 7:57 AM EST) Expires at [id number] on: [id number] TEMITOPE GAUTAM ABORH Type A Pos TEMITOPE GAUTAM Blood specimen (specimen) 02/24/2010 7:57 AM EST 02/24/2010 8:02 AM EST Ashley Cameron MD BLOOD BANK LAB ORDER IGOR Performing Organization Address [facility] de Phone Number [facility] * PHOSPHORUS (02/24/2010 7:30 AM EST) Phosphorus 4.0 2.5 - 4.5 mg/dL [facility] Blood specimen (specimen) 02/24/2010 7:30 AM EST 02/24/2010 7:48 AM EST Ashley Cameron MD CHEMISTRY ORDERABLES Performing Organization Address [facility] de Phone Number [facility] * MAGNESIUM (02/24/2010 7:30 AM EST) Magnesium 1.07 0.69 - 1.07 mmol/L [facility] Blood specimen (specimen) 02/24/2010 7:30 AM EST 02/24/2010 7:48 AM EST Ashley Cameron MD CHEMISTRY ORDERABLES [facility]IN[facility] SHANEENNIUM * (ABNORMAL) CALCIUM (02/24/2010 7:30 AM EST) Calcium 8.4(L) 8.5 - 10.5 mg/dL CERNER MILLENNIUM Blood specimen (specimen) 02/24/2010 7:30 AM EST 02/24/2010 7:48 AM EST Ashley Cameron MD CHEMISTRY ORDERABLES CERNER SVITLANAENNIUM * (ABNORMAL) ALBUMIN (02/24/2010 7:30 AM EST) Albumin 2.6(L) 3.2 - 5.2 gm/dL CERNER MILLENNIUM Blood specimen (specimen) 02/24/2010 7:30 AM EST 02/24/2010 7:48 AM EST Ashley Cameron MD CHEMISTRY ORDERABLES Performing Organization Address City/[facility]/ZIP Co de Phone Number CERNER MILLENNIUM * REFLEX LAB-SCAN (02/24/2010 7:30 AM EST) Plat estimate Increased CERNER MILLENNIUM RBC Morphology Normal CERNE R MILLENNIUM Blood specimen (specimen) 02/24/2010 7:30 AM EST 02/24/2010 7:46 AM EST Ashley Cameron MD HEMATOLOGY ORDERABLE S CERNER SVITLANAENNIUM * (ABNORMAL) REFLEX LAB-A-DIFF (02/24/2010 7:30 AM EST) Neutrophil % 81.5(H) 34.0 - 71.0 % CERNER MILLENNIUM Neutrophil Absolute 14.43(H) 1.50 - 6.30 x10(3)/mc L CERNER MILLENNIUM Lymph % 6.9(L) 19.0 - 53.0 % CERNER MILLENNIUM Lymphocytes Abs 1.2 1.0 - 3.6 x10(3)/mc L CERNER MILLENNIUM Monocyte % 7.2 4.0 - 13.0 % CERNER MILLENNIUM Monocyte Abs 1.3(H) 0.2 - 1.0 x10(3)/mc L CERNER MILLENNIUM Eos % 1.2 0.0 - 7.0 % CERNER MILLENNIUM Eosinophils Abs 0.2 0.0 - 0.5 x10(3)/mc L CERNER MILLENNIUM Basophil % 0.3 0.0 - 2.0 % CERNER MILLENNIUM Baso Absolute 0.1 0.0 - 0.2 x10(3)/mc L CERNER MILLENNIUM Immature Gran % 2.90(H) 0.00 - 0.66 % CERNER MILLENNIUM Comment: Immature granulocytes(IG's)percentage and absolute count will include metamyelocytes, myelocytes, and promyelocytes. Blood smears from CBC's yielding IG's will be scanned manually for concordance. If this scan disagrees with the automated IG or if promyelocytes are noted, a manual differential will be performed. Immature Gran Absolute 0.51(H) 0.00 - 0.05 x10(3)/mc L CERNER MILLENNIUM Blood specimen (specimen) 02/24/2010 7:30 AM EST 02/24/2010 7:46 AM EST Ashley Cameron MD HEMATOLOGY ORDERABLE S CERNER MILLENNIUM * (ABNORMAL) ELECTROLYTE PANEL (02/24/2010 7:30 AM EST) Sodium 133(L) 135 - 145 mmol/L CERNER MILLENNIUM Potassium 3.4(L) 3.5 - 5.0 mmol/L CERNER MILLENNIUM Comment: [...] Anion Gap 10 5 - 15 mmol/L [facility] MILLENNIUM Blood specimen (specimen) 02/24/2010 7:30 AM EST 02/24/2010 7:46 AM EST Ashley Cameron MD CHEMISTRY ORDERABLES [facility] CHRISTALIUM * (ABNORMAL) CREATININE, SERUM (02/24/2010 7:30 AM EST) Creatinine 1.06 0.70 - 1.20 mg/dL CERNER MILLENNIUM Est Glomerular Filtration Rate 53(L) >=60 CERNER MILLENNIUM Comment: The National Kidney [...] disease. References: http://nkdep.nih.gov/resources/NKDEP_Suggestn4Labs_0606_508.pdf http://www.kidney.org/professionals/kls/pdf/faq_gfr.pdf Blood specimen (specimen) 02/24/2010 7:30 AM EST 02/24/2010 7:46 AM EST Ashley Cameron MD CHEMISTRY ORDERABLES [facility] * BUN (02/24/2010 7:30 AM EST) Blood Urea Nitrogen 18 8 - 18 mg/dL [facility] Blood specimen (specimen) 02/24/2010 7:30 AM EST 02/24/2010 7:46 AM EST Ashley Cameron MD CHEMISTRY ORDERABLES Performing Organization Address [facility] Phone Number [facility] * (ABNORMAL) APTT (02/24/2010 7:30 AM EST) Partial Thromboplastin Time 40(H) 25 - 37 sec [facility] Comment: Recommended therapeutic PTT range for full dose unfractionated heparin is 80-114 seconds. Blood specimen (specimen) 02/24/2010 7:30 AM EST 02/24/2010 7:46 AM EST Ashley Cameron MD HEMATOLOGY ORDERABLE S Performing Organization Address [facility] Phone Number [facility] * (ABNORMAL) PROTIME-INR (02/24/2010 7:30 AM EST) Prothrombin Time 16.7(H) 11.8 - 15.0 sec [facility] Comment: [facility] Transfusion Committee Guidelines: INR less than 2.0, PTT less than OR equal to 43.5 seconds, or Fibrinogen greater than or equal to 100 mg/dl indicate adequate procoagulant activity for hemostasis in patients without underlying bleeding disorders. International Normalization Ratio 1.3(H) 0.9 - 1.1 [facility] Blood specimen (specimen) 02/24/2010 7:30 AM EST 02/24/2010 7:46 AM EST Ashley Cameron MD HEMATOLOGY ORDERABLE S Performing Organization Address [facility] Phone Number [facility] * (ABNORMAL) CBC (02/24/2010 7:30 AM EST) White Blood Cell 17.7(H) 4.0 - 10.0 x10(3)/mc L CERNER MILLENNIUM Red Blood Cell 3.55(L) 3.93 - 5.22 x10(6)/mc L CERNER MILLENNIUM Hemoglobin 10.1(L) 11.2 - 15.7 gm/dL CERNER MILLENNIUM Hematocrit 31.0(L) 34.0 - 45.0 % CERNER MILLENNIUM Mean Cell Volume 87.3 79.0 - 94.0 fL CERNER MILLENNIUM Mean Cell Hemoglobin 28.5 26.6 - 32.2 pg CERNER MILLENNIUM Mean Cell Hemoglobin Concentration 32.6 32.0 - 36.5 gm/dL CERNER MILLENNIUM Platelet 395(H) 145 - 370 x10(3)/mc L CERNER MILLENNIUM RDW Standard Deviation 46.9(H) 35.0 - 46.0 fL CERNER MILLENNIUM RDW coefficient of variation 14.6(H) 10.9 - 14.4 % CERNER MILLENNIUM Mean Platelet Volume 8.5(L) 9.0 - 12.0 fL CERNER MILLENNIUM Blood specimen (specimen) 02/24/2010 7:30 AM EST 02/24/2010 7:46 AM EST Ashley Cameron MD HEMATOLOGY ORDERABLE S [facility]ERCHAPINCITO SIEGELIUM * POCT GLUCOMETER ORDER (LAB USE ONLY) (02/24/2010 6:13 AM EST) Glucose, POC 109 70 - 110 mg/dL CERNER MILLENNIUM Comment: Supplemental ranges: <110 mg/dL before meals <200 mg/dL all other times of the day Blood specimen (specimen) 02/24/2010 6:13 AM EST 02/24/2010 6:13 AM EST Pro Mazariegos MD POINT OF CARE TE ST ORDERABLES [facility]ERCHAPINCITO SHANEENNIUM * (ABNORMAL) POCT GLUCOMETER ORDER (LAB USE ONLY) (02/24/2010 12:40 AM EST) Glucose, POC 149(H) 70 - 110 mg/dL [facility] Comment: Supplemental ranges: <110 mg/dL before meals <200 mg/dL all other times of the day Blood specimen (specimen) 02/24/2010 12:40 AM EST 02/24/2010 12:40 AM EST Pro Mazariegos MD POINT OF CARE TE ST ORDERABLES Performing Organization Address [facility] Co de Phone Number [facility] * (ABNORMAL) POCT GLUCOMETER ORDER (LAB USE ONLY) (02/23/2010 4:58 PM EST) Glucose, POC 213(H) 70 - 110 mg/dL [facility] Comment: Supplemental ranges: <110 mg/dL before meals <200 mg/dL all other times of the day Blood specimen (specimen) 02/23/2010 4:58 PM EST 02/23/2010 4:58 PM EST Pro Mazariegos MD POINT OF CARE TE ST ORDERABLES Performing Organization Address [facility] Co de Phone Number [facility] SVITLANABANNERNETO * PROTEIN, TOTAL (02/23/2010 12:20 PM EST) Protein, Total 7.2 6.4 - 8.3 gm/dL [facility] Blood specimen (specimen) 02/23/2010 12:20 PM EST 02/23/2010 12:58 PM EST Ashley Cameron MD CHEMISTRY ORDERABLES Performing Organization Address [facility] Co de Phone Number [facility] * LACTATE DEHYDROGENASE (02/23/2010 12:20 PM EST) Lactate Dehydrogenase 175 110 - 220 unit/L [facility] Blood specimen (specimen) 02/23/2010 12:20 PM EST 02/23/2010 12:58 PM EST Ashley Cameron MD CHEMISTRY ORDERABLES Performing Organization Address [facility] de Phone Number [facility] * CARDIAC ENZYME PANEL (02/23/2010 12:20 PM EST) Troponin-T <0.03 <=0.03 ng/mL [facility] Comment: 0.03 ng/mL: ??Represents the 99th percentile upper reference limit for normals >0.03 ng/mL: ??Elevated cardiac troponin T level indicative of myocardial damage Diagnosis of acute, evolving or recent [place] requires a typical rise and gradual fall of cTnT with at least ONE of the following: a) ??Ischemic symptoms b) ??Development of pathologic Q waves on the ECG c) ??ECG changes indicative of ischemia (S-T segment elevation/depression) d) ??Coronary artery intervention Serial bloods should be obtained for testing on admission, at 6-9h and again at 12-24h if earlier samples are negative and the clinical index of suspicion is high. Reference [Myocardial infarction redefined a consensus document of the Joint Society of Cardiology/[place] College [employer] Cardiology Committee for the redefinition of myocardial infarction. Journal of the [place] College [employer]iology 2000; 36: 959-969] Creatine Kinase 46 0 - 160 unit/L [facility] Comment:result rechecked-kml Blood specimen (specimen) 02/23/2010 12:20 PM EST 02/23/2010 12:58 PM EST Ashley Cameron MD CHEMISTRY ORDERABLES Performing Organization Address [facility] de Phone Number [facility] * (ABNORMAL) LIPID PANEL (02/23/2010 12:20 PM EST) Cholesterol, Total 138 <=199 mg/dL [facility] Comment: Recommendations of the NCEP Adult Treatment Panel for the following risk cutoff thresholds for the [place] population: Desirable: <200 mg/dL Borderline High: 200-239 mg/dL High: > or = 240 mg/dL Triglyceride 81 <=149 mg/dL [facility] Comment: Reference Range: Normal triglycerides: ??<150 mg/dL Borderline high: ??150-199 mg/dL High: ??200-499 mg/dL Very high: ??>wr=652 mg/dL LLOYD 2001; 285(19):0083-1980 HDL Cholesterol 39(L) >=40 mg/dL [facility] Comment: Reference range: ??Low HDL: ?? < 40 mg/dL ??Normal: ?40-60 mg/dL ??Desirable: > 60 mg/dL LLOYD 2001; 285(19):9324-8408 LDL Cholesterol 83 <=99 mg/dL [facility] Comment: Reference range: ?? Optimal: ?<100 mg/dL ?? Near Optimal/Above Optimal: ?? 100-129 mg/dL ?? Borderline high: ?130-159 mg/dL ?? High: ? 160-189 mg/dL ?? Very high: ?>mv=011 mg/dL LLOYD 2001: 285(19):4018-7834 Cholesterol/HDL Ratio 3.5 ratio [facility] Comment: A Cholesterol to HDL ratio below 4:1 is desirable. ??Studies suggest that increased CAD risk occurs at ratios above 5 for females and above 6 for men. ? [place] [employer] Association ??(http://www.americanheart.org) ? Ryann Int Med, 1994; 121:641 ? AM J Med, 1998; 105(1A):48S Fasting? Not Indicated [facility] Blood specimen (specimen) 02/23/2010 12:20 PM EST 02/23/2010 12:58 PM EST Ashley Cameron MD CHEMISTRY ORDERABLES [facility] * REFLEX LAB-NRBC (02/23/2010 12:20 PM EST) NRBC% auto 0.0 0.0 - 0.2 % [facility] NRBC Absolute 0.000 0.000 - 0.012 x10(3)/mcL CERNER MILLENNIUM Blood specimen (specimen) 02/23/2010 12:20 PM EST 02/23/2010 12:59 PM EST Ashley Cameron MD HEMATOLOGY ORDERABLE S CERNER MILLENNIUM * (ABNORMAL) REFLEX LAB-NCDIFF (02/23/2010 12:20 PM EST) Segmented Neutrophils Manual 43 34 - 71 % CERNER MILLENNIUM Band % 41(H) 0 - 12 % CERNER MILLENNIUM Lymphocyte Manual 14(L) 19 - 53 % CERNER MILLENNIUM Monocyte Manual 2(L) 4 - 13 % CERN ER MILLENNIUM Segs Absolute Manual 10.2(H) 1.5 - 6.3 x10(3)/mc L CERNER MILLENNIUM Band Abs 9.7(H) 0.2 - 0.6 x10(3)/mc L CERNER MILLENNIUM ANC 19.85 x10(3)/mc L CERNER MILLENNIUM Lymph Absolute Manual 3.3 1.0 - 3.6 x10(3)/mc L CERNER MILLENNIUM Monocyte Absolute Manual 0.5 0.2 - 1.0 x10(3)/mc L CERNER MILLENNIUM Total Cells Ct 100 CERNE R MILLENNIUM Plat estimate Increased CERNER MILLENNIUM RBC Morphology Normal CERNE R MILLENNIUM Platelet Clumps Present CERN ER MILLENNIUM Blood specimen (specimen) 02/23/2010 12:20 PM EST 02/23/2010 12:59 PM EST Ashley Cameron MD HEMATOLOGY ORDERABLE S CERNER MILLENNIUM * (ABNORMAL) CBC (02/23/2010 12:20 PM EST) White Blood Cell 23.6(H) 4.0 - 10.0 x10(3)/mc L CERNER MILLENNIUM Red Blood Cell 4.45 3.93 - 5.22 x10(6)/mc L CERNER MILLENNIUM Hemoglobin 12.8 11.2 - 15.7 gm/dL CERNER MILLENNIUM Hematocrit 40.0 34.0 - 45.0 % CERNER MILLENNIUM Mean Cell Volume 89.9 79.0 - 94.0 fL CERNER MILLENNIUM Mean Cell Hemoglobin 28.8 26.6 - 32.2 pg CERNER MILLENNIUM Mean Cell Hemoglobin Concentration 32.0 32.0 - 36.5 gm/dL CERNER MILLENNIUM Platelet 571(H) 145 - 370 x10(3)/mc L CERNER MILLENNIUM RDW Standard Deviation 48.1(H) 35.0 - 46.0 fL CERNER MILLENNIUM RDW coefficient of variation 14.6(H) 10.9 - 14.4 % CERNER MILLENNIUM Mean Platelet Volume 8.9(L) 9.0 - 12.0 fL CERNER MILLENNIUM Blood specimen (specimen) 02/23/2010 12:20 PM EST 02/23/2010 12:59 PM EST Ashley Cameron MD HEMATOLOGY ORDERABLE S [facility] * POCT GLUCOMETER ORDER (LAB USE ONLY) (02/23/2010 12:09 PM EST) Glucose, POC 95 70 - 110 mg/dL [facility] MILLENNIUM Comment: Supplemental ranges: <110 mg/dL before meals <200 mg/dL all other times of the day Blood specimen (specimen) 02/23/2010 12:09 PM EST 02/23/2010 12:09 PM EST Pro Mazariegos MD POINT OF CARE TE ST ORDERABLES [facility] * REFLEX LAB-ANAEROBIC CULTURE (02/23/2010 10:00 AM EST) Anaerobic Culture ? Patient Name: KYLEIGH CABALLERO ? Ordered By: ASHLEY CAMERON ? MR#: [id number] ?LOC: ??PICU ? /Sex: ??1950 (60 years), ? Female ? PROCEDURE: Anaerobic Culture ?SOURCE: Pleural Fl ? COLLECTED: 02/23/2010 10:00 ?FREE TEXT SOURCE: LEFT ? STARTED: 02/23/2010 10:32 ? FINAL REPORT ? Final Report ? Verified:2009 14:07 ? No anaerobic organisms isolated ? PRELIMINARY REPORT ? Preliminary Report ? Verified:2009 11:35 ? Culture in progress ? [facility] Pleural fluid specimen (specimen) 02/23/2010 10:00 AM EST 02/23/2010 10:15 AM EST Comment:LEFT Ashley Cameron MD MICROBIOLOGY - GENER AL ORDERABLES [facility] * BODY FLUID CULTURE (02/23/2010 10:00 AM EST) Body Fluid Culture ? Patient Name: KYLEIGH CABALLERO ? Ordered By: ASHLEY CAMERON ? MR#: [id number] ?LOC: ??PICU ? /Sex: ??1950 (60 years), ? Female ? PROCEDURE: Body Fluid Culture ?SOURCE: Pleural Fl ? COLLECTED: 02/23/2010 10:00 ?FREE TEXT SOURCE: LEFT ? STARTED: 02/23/2010 10:32 ? STAINS / PREPARATIONS ? Gram Stain Report ? Verified:02/24/20 10 11:33 ? Cytocentrifuge Gram Stain performed ? White Blood Cells seen ? No microorganisms seen. ? FINAL REPORT ? Final Report ? Verified:02/28/20 10 08:31 ? Moderate Streptococcus milleri group ? PRELIMINARY REPORT ? Preliminary Report ? Verified:02/26/20 10 14:18 ? Moderate Alpha Hemolytic Streptococci ? SUSCEPTIBILITY RESULTS ? Streptococcus milleri group ?SEBASTINÁ mcg/mL ?? SEBASTIÁN Interp ? Penicillin(1) ??0.032 ?S ? S=Susceptible ??I=Intermediate ??R=Resistant ??NA=Not Applicable ? DDS=Dose dependent-suscept ible ??NS=Non-suscepti ble ? FOOTNOTES ? (1)Penicillin susceptible Streptococci species can be considered ? susceptible to Ampicillin, ? Ampicillin-Sulbac mejia, Amoxicillin, Amoxicillin-Clavu lanate, Ceftriaxone and ? Meropenem. ? Patient: KYLEIGH CABALLERO ? MR#: [id number] ? CERNER MILLENNIUM Pleural fluid specimen (specimen) 02/23/2010 10:00 AM EST 02/23/2010 10:15 AM EST Comment:LEFT Ashley Cameron MD MICROBIOLOGY - GENER AL ORDERABLES Performing Organization Address [facility] Co de Phone Number CERNER MILLENNIUM * BF CELL COUNT (02/23/2010 10:00 AM EST) Body Fluid Source Pleural, Left CERNER MILLENNIUM Color, Fld Red CERNER MILLENNIUM Appearance, Fld Hazy CERN ER MILLENNIUM Nucl Cell BF Ct 13,151 /mcl CERN ER MILLENNIUM Neutrophil BF 92 % CERNER MILLENNIUM Lymphocyte BF 5 % CERNER MILLENNIUM Macrophage BF 2 % CERNER MILLENNIUM Eosinophil BF 1 % CERNER MILLENNIUM Tot Diff Ct BF 200 Cells CERNE R MILLENNIUM Body fluid specimen (specimen) 02/23/2010 10:00 AM EST 02/23/2010 10:16 AM EST Ashley Cameron MD BODY FLUIDS AND STOO LS ORDERABLES Performing Organization Address City/[facility]/ZIP Co de Phone Number CERNER MILLENNIUM * LACTATE DEHYDROGENASE BODY FLUID (02/23/2010 10:00 AM EST) Lactate Dehydrogenase, Fluid 1647 unit/L CERNER MILLENNIUM Comment: No reference range is available for the specimen type submitted. ??The performance of this assay for the submitted type has not been validated and results should be interpreted accordingly and with regard to the patient's clinical status. LDH, Fld Type Pleural, Left CERNER MILLENNIUM Body fluid specimen (specimen) 02/23/2010 10:00 AM EST 02/23/2010 10:16 AM EST Ashley Cameron MD BODY FLUIDS AND STOO LS ORDERABLES Performing Organization Address [facility] Phone Number [facility] SVITLANABANNERIUM * PROTEIN LEVEL BODY FLUID (02/23/2010 10:00 AM EST) Protein, Fluid 3.8 gm/dL [facility]ERNE R MILLENNIUM Comment: Reference range: ??Transudates ??< 3.0 gm/dL ?Exudates ? > 3.0 gm/dL No reference range is available for the specimen type submitted. ??The performance of this assay for the submitted type has not been validated and results should be interpreted accordingly and with regard to the patient's clinical status. Prot, Fld Type Pleural, Left CERNER MILLENNIUM Body fluid specimen (specimen) 02/23/2010 10:00 AM EST 02/23/2010 10:16 AM EST Ashley Cameron MD BODY FLUIDS AND STOO LS ORDERABLES Performing Organization Address [facility] Phone Number [facility] * GLUCOSE LEVEL BODY FLUID (02/23/2010 10:00 AM EST) Glucose, Fluid 18 mg/dL [facility] R MILLENNIUM Comment: No reference range is available for the specimen type submitted. ??The performance of this assay for the submitted type has not been validated and results should be interpreted accordingly and with regard to the patient's clinical status. Gluc, Fld Type Pleural, Left CERNER MILLENNIUM Body fluid specimen (specimen) 02/23/2010 10:00 AM EST 02/23/2010 10:16 AM EST Ashley Cameron MD BODY FLUIDS AND STOO LS ORDERABLES Performing Organization Address [facility] Phone Number [facility] SVITLANABANNERIUM * (ABNORMAL) POCT GLUCOMETER ORDER (LAB USE ONLY) (02/23/2010 6:10 AM EST) Glucose, POC 121(H) 70 - 110 mg/dL [facility] Comment: Supplemental ranges: <110 mg/dL before meals <200 mg/dL all other times of the day Blood specimen (specimen) 02/23/2010 6:10 AM EST 02/23/2010 6:10 AM EST Pro Mazariegos MD POINT OF CARE TE ST ORDERABLES Performing Organization Address [facility] de Phone Number [facility] * CARDIAC ENZYME PANEL (02/23/2010 3:40 AM EST) Pathologist [facility] Troponin-T <0.03 <=0.03 ng/mL [facility] Comment: 0.03 ng/mL: ??Represents the 99th percentile upper reference limit for normals >0.03 ng/mL: ??Elevated cardiac troponin T level indicative of myocardial damage Diagnosis of acute, evolving or recent [place] requires a typical rise and gradual fall of cTnT with at least ONE of the following: a) ??Ischemic symptoms b) ??Development of pathologic Q waves on the ECG c) ??ECG changes indicative of ischemia (S-T segment elevation/depression) d) ??Coronary artery intervention Serial bloods should be obtained for testing on admission, at 6-9h and again at 12-24h if earlier samples are negative and the clinical index of suspicion is high. Reference [Myocardial infarction redefined a consensus document of the Joint Society of Cardiology/[place] College [employer] Cardiology Committee for the redefinition of myocardial infarction. Journal of the [place] College of Cardiology 2000; 36: 959-969] Creatine Kinase <20 0 - 160 unit/L [facility] Blood specimen (specimen) 02/23/2010 3:40 AM EST 02/23/2010 3:48 AM EST Pro Mazariegos MD CHEMISTRY ORDERA BLES Performing Organization Address [facility] Co de Phone Number [facility] [employer] * BLOOD CULTURE (02/23/2010 2:18 AM EST) Blood Culture ? Patient Name: KYLEIGH CABALLERO ? Ordered By: SHARMIN HINTON ? MR#: [id number] ?LOC: ??4WST ? /Sex: ??1950 (60 years), ? Female ? PROCEDURE: Blood Culture ?SOURCE: Blood ? COLLECTED: 02/23/2010 02:18 ? BODY SITE: Right Antecubital ? STARTED: 02/23/2010 02:26 ?FREE TEXT SOURCE: AEROBIC ONLY ? FINAL REPORT ? Final Report ? Verified:2009 07:48 ? No growth at 5 days. ? PRELIMINARY REPORT ? Preliminary Report ? Verified:2009 07:04 ? No growth at 4 days. ? [facility] Blood specimen (specimen) ANTECUBITAL REGION STRUCTURE / Unknown 02/23/2010 2:18 AM EST 02/23/2010 2:26 AM EST Comment:AEROBIC ONLY Sharmni Hinton MD MICROBIOLOGY - BLOOD ORDERABLES [facility] * (ABNORMAL) POCT GLUCOMETER ORDER (LAB USE ONLY) (02/22/2010 11:59 PM EST) Glucose, POC 181(H) 70 - 110 mg/dL [facility] MILL[facility] Comment: Supplemental ranges: <110 mg/dL before meals <200 mg/dL all other times of the day Blood specimen (specimen) 02/22/2010 11:59 PM EST 02/22/2010 11:59 PM EST Pro Mazariegos MD POINT OF CARE TE ST ORDERABLES [facility] MILLENNIUM * (ABNORMAL) BASIC METABOLIC PANEL (NON-FASTING) (02/22/2010 8:56 PM EST) Glucose 325(H) <=199 mg/dL [facility] MILLENNIUM Comment:Diabetes: >=200 mg/d L plus symptoms Blood Urea Nitrogen 16 8 - 18 mg/dL CERNER MILLENNIUM Creatinine 0.89 0.70 - 1.20 mg/dL CERNER MILLENNIUM Sodium 129(L) 135 - 145 mmol/L CERNER MILLENNIUM Potassium 3.5 3.5 - 5.0 mmol/L [facility] MILLENNIUM Comment: Please note: ??Patients with WBC >100,000 may have falsely elevated Potassium levels. ??For accurate Potassium quantification in these patients send serum separator tube (gold top) for subsequent determinations. ??Contact the Clinical Chemistry Laboratory if there are any questions. Chloride 95(L) 98 - 107 mmol/L CERNER MILLENNIUM Carbon Dioxide 21(L) 22 - 31 mmol/L CERNER MILLENNIUM Anion Gap 13 5 - 15 mmol/L [facility] MILLENNIUM Calcium 8.8 8.5 - 10.5 mg/dL CERNER MILLENNIUM Est [...] disease. References: http://nkdep.nih.gov/resources/NKDEP_Suggestn4Labs_0606_508.pdf http://www.kidney.org/professionals/kls/pdf/faq_gfr.pdf Blood specimen (specimen) 02/22/2010 8:56 PM EST 02/22/2010 8:56 PM EST Pro Mazariegos MD CHEMISTRY ORDERA [employer] [facility] [employer] * CARDIAC ENZYME PANEL (02/22/2010 8:56 PM EST) Troponin-T <0.03 <=0.03 ng/mL [facility] [employer] Comment: 0.03 ng/mL: ??Represents the 99th percentile upper reference limit for normals >0.03 ng/mL: ??Elevated cardiac troponin T level indicative of myocardial damage Diagnosis of acute, evolving or recent [place] requires a typical rise and gradual fall of cTnT with at least ONE of the following: a) ??Ischemic symptoms b) ??Development of pathologic Q waves on the ECG c) ??ECG changes indicative of ischemia (S-T segment elevation/depression) d) ??Coronary artery intervention Serial bloods should be obtained for testing on admission, at 6-9h and again at 12-24h if earlier samples are negative and the clinical index of suspicion is high. Reference [Myocardial infarction redefined a consensus document of the Joint Society of Cardiology/[place] [employer] Committee for the redefinition of myocardial infarction. Journal of the [place] [employer] 2000; 36: 959-969] Creatine Kinase <20 0 - 160 unit/L CERNER MILLENNIUM Blood specimen (specimen) 02/22/2010 8:56 PM EST 02/22/2010 8:56 PM EST Pro Mazariegos MD CHEMISTRY ORDERA BLES CERNER MILLENNIUM * (ABNORMAL) REFLEX LAB-NCDIFF (02/22/2010 8:56 PM EST) Segmented Neutrophils Manual 60 34 - 71 % CERNER MILLENNIUM Band % 30(H) 0 - 12 % CERNER MILLENNIUM Lymphocyte Manual 3(L) 19 - 53 % CERNER MILLENNIUM Monocyte Manual 5 4 - 13 % CERN ER MILLENNIUM Myelocyte Manual 2(H) 0 - 0 % CERNER MILLENNIUM Segs Absolute Manual 13.4(H) 1.5 - 6.3 x10(3)/mc L CERNER MILLENNIUM Band Abs 6.7(H) 0.2 - 0.6 x10(3)/mc L CERNER MILLENNIUM ANC 20.03 x10(3)/mc L CERNER MILLENNIUM Lymph Absolute Manual 0.7(L) 1.0 - 3.6 x10(3)/mc L CERNER MILLENNIUM Monocyte Absolute Manual 1.1(H) 0.2 - 1.0 x10(3)/mc L CERNER MILLENNIUM Myelo Absolute Manual 0.5(H) 0.0 - 0.0 x10(3)/mc L CERNER MILLENNIUM Total Cells Ct 100 CERNE R MILLENNIUM Plat estimate Increased CERNER MILLENNIUM RBC Morphology Normal CERNE R MILLENNIUM Blood specimen (specimen) 02/22/2010 8:56 PM EST 02/22/2010 8:56 PM EST Pro Mazariegos MD HEMATOLOGY ORDER IGOR CERNER MILLENNIUM * (ABNORMAL) CBC (02/22/2010 8:56 PM EST) White Blood Cell 22.3(H) 4.0 - 10.0 x10(3)/mc L CERNER MILLENNIUM Red Blood Cell 3.98 3.93 - 5.22 x10(6)/mc L CERNER MILLENNIUM Hemoglobin 11.3 11.2 - 15.7 gm/dL CERNER MILLENNIUM Hematocrit 35.3 34.0 - 45.0 % CERNER MILLENNIUM Mean Cell Volume 88.7 79.0 - 94.0 fL CERNER MILLENNIUM Mean Cell Hemoglobin 28.4 26.6 - 32.2 pg CERNER MILLENNIUM Mean Cell Hemoglobin Concentration 32.0 32.0 - 36.5 gm/dL CERNER MILLENNIUM Platelet 480(H) 145 - 370 x10(3)/mc L CERNER MILLENNIUM RDW Standard Deviation 46.8(H) 35.0 - 46.0 fL CERNER MILLENNIUM RDW coefficient of variation 14.4 10.9 - 14.4 % CERNER MILLENNIUM Mean Platelet Volume 8.9(L) 9.0 - 12.0 fL CERNER MILLENNIUM Blood specimen (specimen) 02/22/2010 8:56 PM EST 02/22/2010 8:56 PM EST Pro Mazariegos MD HEMATOLOGY ORDER IGOR Performing Organization Address City/[facility] Co de Phone Number [facility] * (ABNORMAL) SEDIMENTATION RATE, AUTOMATED (02/22/2010 8:56 PM EST) Pathologist [facility] Sedimentation Rate Automated 33(H) 0 - 20 mm/hr CERNER MILLENNIUM Blood specimen (specimen) 02/22/2010 8:56 PM EST 02/22/2010 8:56 PM EST Pro Mazariegos MD HEMATOLOGY ORDER IGOR Performing Organization Address City/State/[facility] Co de Phone Number [facility] * BLOOD CULTURE (02/22/2010 8:47 PM EST) Pathologist [facility] Blood Culture ? Patient Name: KYLEIGH CABALLERO ? Ordered By: SHARMIN HINTON ? MR#: [id number] ?LOC: ??PICU ? /Sex: ??1950 (60 years), ? Female ? PROCEDURE: Blood Culture ?SOURCE: Blood ? COLLECTED: 02/22/2010 20:47 ? BODY SITE: Unspecified Line ? STARTED: 02/22/2010 21:05 ? FINAL REPORT ? Final Report ? Verified:2009 15:03 ? No growth at 5 days. ? PRELIMINARY REPORT ? Preliminary Report ? Verified:2009 23:04 ? No growth at 4 days. ? TEMITOPE MILLENNIUM Blood specimen (specimen) VENOUS CATHETER / Unknown 02/22/2010 8:47 PM EST 02/22/2010 8:57 PM EST Sharmin Hinton MD MICROBIOLOGY - BLOOD ORDERABLES TEMITOPE SIEGELIUM documented in this encounter Visit Diagnoses Not on filedocumented in this encounter Care Teams Tableau Developer Relationship Specialty Start Date End Date Nayana Blankenship MD [facility] [address] [place] [address] PCP - General 03/09/10 documented as of this encounter
--- OUTSIDE RECORDS SUMMARY | 2023-12-15 06:19 | XMS_ITS ---
Author Organization Unknown Address [address] [place] [phone] Phone Care Team Providers Care [facility] Attendant Name Role Phone FRANK Mujica MD Attending [...] mcg/0.25mL dose 07/20/2020 Completed [address] UPPER EXT RIGHT W/O CONTR AST - Completed: 11/06/2020 13:21 LOINC: Radiation optimization: All CT scans at this facility use at least one of these dose optimization techniques: automated exposure control; mA and/or kV adjustment per patient size (includes targeted exams where dose is matched to clinical indication); or iterative reconstruction. Osseous: There is no evidence of fracture. There are advanced osteoarthritic degenerative changes in the glenohumeral joint including bone on bone joint space narrowing and there is a wilson-type osteophyte on the inferior articular surface of the humeral head. Also degenerative subarticular cysts on both sides of the joint. Moderate degenerative change is also evident in the acromioclavicular joint. Incidentally noted are advanced emphysematous changes in the visualized right lung field. IMPRESSION: 1. 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 2. Moderate degenerative changes in the ipsilateral AC joint. 3. Severe emphysematous lung changes. Dictated by: MEREDITH FREY M.D. RADIOLOGIST Transcribed by: ELGIN 11/07/20/10:47 D Friday, November 06, 2020 4:11:15 PM/#[id number] Electronically Reviewed and Signed By: ZAKIA FREY M.D. RADIOLOGIST 11/07/20 18:42 Social History Type Status Start Date End Date Code Code Syst em Smoking History Former smoker 04/17/19986726 0049650 SNOMED CT Sex Female Medications Medication Start Date End Date Route Frequency Dose Code Code System Medication Instructions Home Meds Multivitamin Oral Tablet 06/25/2015 Unknown ORAL DAILY 1 TABLET 9488427 RxNorm TAKE 1 TABLET ORAL DAILY Acetaminophen 500MG Oral Tablet 11/15/2020 04/15/20 23 ORAL NEEDED 500 MILLIGRAMS 465967 RxNorm TAKE 500 MILLIGRAMS ORAL NEEDED Amitriptyline 25MG Oral Tablet 11/15/2020 04/15/20 23 ORAL EVERY EVENING 25 MILLIGRAMS 187309 RxNorm TAKE 25 MILLIGRAMS ORAL EVERY EVENING Azithromycin 250MG Oral Tablet 11/15/2020 04/15/20 23 ORAL DAILY 250 MILLIGRAMS 878835 RxNorm TAKE 250 MILLIGRAMS ORAL DAILY Calcium 600 MG Oral Tablet 11/15/2020 04/15/20 23 ORAL DAILY 600 MG 244559 RxNorm TAKE 600 MG ORAL DAILY Diclofenac Sodium 1% Topical application Gel/Jelly 11/15/2020 04/15/20 23 TOPICAL APPLICATI ON NEEDED TWICE DAILY 1 APPL 662530 RxNorm 1 APPL TOPICAL APPLICATIO N NEEDED TWICE DAILY Docusate Sodium 100MG Oral Capsule, Liquid Filled 11/15/2020 04/15/20 23 ORAL TWICE A DAY 100 MILLIGRAMS 0823052 RxNorm TAKE 100 MILLIGRAMS ORAL TWICE A DAY Donepezil HCl 10MG Oral Tablet 11/15/2020 Unknown ORAL DAILY 10 MILLIGRAMS 245680 RxNorm TAKE 10 MILLIGRAMS ORAL DAILY Fexofenadine HCl 180MG Oral Tablet 11/15/2020 Unknown ORAL DAILY 180 MILLIGRAMS 406011 RxNorm TAKE 180 MILLIGRAMS ORAL DAILY Fluticasone Propionate 0.05MG/Actuati on Nasal [place] 11/15/2020 04/15/20 23 NASAL TWICE A DAY 1 SPRAY 2029666 RxNorm SPRAY 1 SPRAY NASAL TWICE A DAY Ibuprofen 200MG Oral Tablet 11/15/2020 04/15/20 23 ORAL NEEDED TWICE DAILY 600 MILLIGRAMS 361787 RxNorm TAKE 600 MILLIGRAMS ORAL NEEDED TWICE DAILY Imitrex 100MG Oral Tablet 11/15/2020 04/15/20 23 ORAL NEEDED 100 MILLIGRAMS 191208 RxNorm TAKE 100 MILLIGRAMS ORAL NEEDED Ipratropium [place] rol Sulfate 0.5MG/3ML-3MG/ 3ML Inhalation Solution 11/15/2020 04/15/20 23 INHALATIO N NEEDED TWICE DAILY 1 UNIT 5874956 RxNorm 1 UNIT INHALATION NEEDED TWICE DAILY Melatonin 10 MG Oral Capsule 11/15/2020 04/15/20 23 ORAL BEDTIME 10 MG 439088 RxNorm TAKE 10 MG ORAL BEDTIME Mirtazapine 15MG Oral Tablet 11/15/2020 04/15/20 23 ORAL BEDTIME 15 MILLIGRAMS 969032 RxNorm TAKE 15 MILLIGRAMS ORAL BEDTIME Omeprazole 40MG Oral Capsule, Delayed Release 11/15/2020 Unknown ORAL DAILY 40 MILLIGRAMS 829627 RxNorm TAKE 40 MILLIGRAMS ORAL DAILY PARoxetine HCl 20MG Oral Tablet 11/15/2020 04/15/20 23 ORAL DAILY 20 MILLIGRAMS 3980644 RxNorm TAKE 20 MILLIGRAMS ORAL DAILY Senna 8.6MG Oral Tablet 11/15/2020 04/15/20 23 ORAL NEEDED AT BEDTIME 8.6 MILLIGRAMS 922434 RxNorm TAKE 8.6 MILLIGRAMS ORAL NEEDED AT BEDTIME Singulair 10MG Oral Tablet 11/15/2020 04/15/20 23 ORAL EVERY EVENING 10 MILLIGRAMS 356118 RxNorm TAKE 10 MILLIGRAMS ORAL EVERY EVENING Trelegy Ellipta NA Inhalation Powder 11/15/2020 04/15/20 23 INHALATIO N DAILY 1 PUFF 3706987 RxNorm 1 PUFF INHALATION DAILY Vitamin D 2000 IU Oral Tablet 11/15/2020 04/15/20 23 ORAL WEEKLY 2000 IU 543913 RxNorm TAKE 2000 IU ORAL WEEKLY amLODIPine Besylate 10MG Oral Tablet 11/15/2020 Unknown ORAL DAILY 10 MILLIGRAMS 171676 RxNorm TAKE 10 MILLIGRAMS ORAL DAILY busPIRone 10MG Oral Tablet 11/15/2020 Unknown ORAL THREE TIMES A DAY 20 MILLIGRAMS 792747 RxNorm TAKE 20 MILLIGRAMS ORAL THREE TIMES A DAY predniSONE 20MG Oral Tablet 11/15/2020 04/15/20 23 ORAL DAILY 3 TABLET 309972 RxNorm TAKE 3 TABLET ORAL DAILY LORazepam 0.5MG Oral Tablet 04/17/2023 Unknown ORAL EVERY 6 HOURS 1 TABLET 133199 RxNorm TAKE 1 TABLET ORAL EVERY 6 [...] 1726 0408 21AD 5641 023 Active FDA [id number] 07/23/2025 FLEX SHOULD ER SYSTEM [id number] Total reverse shoulder prosthesis 0103 7003 8694 4543 1725 1213 21CZ 3920 3310 36 Active FDA [id number] 03/29/2025 Aequal is(TM) Ascend (TM) Flex [id number] Total reverse shoulder prosthesis 0103 7003 8694 1054 1725 1211 2191 19AV 009 Active FDA [id number] 09 03/27/2025 FLEX SHOULD ER SYSTEM [id number] Reverse shoulder prosthesis head 0100 8468 3206 1891 1726 0325 21CZ 5121 0570 10 Active FDA [id number] 19011 07/09/2025 AEQUAL IS(TM) PerFOR M Revers ed [id number] Reverse shoulder prosthesis base plate 0100 8468 3206 1884 1726 0611 2174 89AW 015 Active FDA [id number] [id number] 09/25/2025 AEQUAL IS(TM) PerFOR M Revers ed [id number] Orthopaedi c bone screw, non-bioabs orbable, sterile 0100 8468 3206 2072 1726 0107 2132 33AW 004 Active FDA [id number] 04 04/23/2025 AEQUAL IS(TM) PerFOR M Revers ed [id number] Problems Problem Start Date Resolved Date Status Code Code System OBSTRUCTIVE CHRONIC BRONCHITIS WITH EXACERBATION active 595168833 SNOMED-CT ACUTE AND CHRONIC RESPIRATOR Y FAILURE active 40778635 SNOMED-CT COPD active 38328938 SNOMED-CT PLEURAL EFFUSION active 42669450 SNO MED-CT HEMOPTYSIS, UNSPECIFIED 11/13/2020 resolved 25805 005 SNOMED-CT SEPTICEMIA NOS 11/13/2020 resolved SNOM ED-CT OTHER AND UNSPECIFIED HYPERLIPIDEMIA 11/13/2020 resolved 52118050 SNOMED-CT LUMBAGO 11/13/2020 resolved 083881860 SNOMED-CT TRANSIENT ALTERED MENTAL STATUS 11/13/2020 resolved 133379019 SNOMED-CT CANDIDIASIS OF MOUTH 11/13/2020 resolved 06940187 SNOMED-CT CLOSED FRACTURE OF ONE RIB 11/13/2020 resolved 45 015157 SNOMED-CT PNEUMONIA 11/13/2020 resolved SNOMED-CT HYPOSMOLALITY AND/OR HYPONATREMIA 11/13/2020 resolved 243255060 SNOMED-CT Allergies and Adverse Reactions Allergy Substance Reaction Severity Start Date Concern Status Code Code System TRAZODONE Hallucinations (SNOMED-CT: 0416019) Moderate Active 82166 RxNorm LISINOPRIL Cough (SNOMED-CT: 31967068) Active 01296 RxNorm FOSAMAX Moderate Active 936208 RxNorm Plan of Treatment Pre-Op Testing 11/06/2020 Pre-Op Covid-19 Testing 03/21/2020 BONE DENSITY DEXA SPINE & HIP PRE-OP COVID-19 TESTING 01/10/2022 MM SCREEN BILAT 10/22/2021 CT CHEST W/O CONTRAST 05/31/2021 NM MPI STR/RST 07/22/2021 Encounters Encounter Diagnosis Start Date Code Code Sys tem Encounter for other preprocedural examination 11/07/19 21 SNOMED-CT Personal Care Team Section Performer Name Performer Role Active Date Inactive Da te
--- OUTSIDE RECORDS SUMMARY | 2023-12-15 06:19 | XMS_ITS ---
Author Organization Unknown Address [address] [place] [address] [phone] Phone Care Team Providers Care Vp Site Name Role Phone FRANK Mujica MD Attending [...] Code Syst em Smoking History Former smoker 04/17/19985784 2014620 SNOMED CT Sex Female Medications Medication Start Date End Date Route Frequency Dose Code Code System Medication Instructions Home Meds Multivitamin Oral Tablet 06/25/2015 Unknown ORAL DAILY 1 TABLET 9409073 RxNorm TAKE 1 TABLET ORAL DAILY Acetaminophen 500MG Oral Tablet 11/15/2020 04/15/20 23 ORAL NEEDED 500 MILLIGRAMS 658387 RxNorm TAKE 500 MILLIGRAMS ORAL NEEDED Amitriptyline 25MG Oral Tablet 11/15/2020 04/15/20 23 ORAL EVERY EVENING 25 MILLIGRAMS 468940 RxNorm TAKE 25 MILLIGRAMS ORAL EVERY EVENING Azithromycin 250MG Oral Tablet 11/15/2020 04/15/20 23 ORAL DAILY 250 MILLIGRAMS 146358 RxNorm TAKE 250 MILLIGRAMS ORAL DAILY Calcium 600 MG Oral Tablet 11/15/2020 04/15/20 23 ORAL DAILY 600 MG 596137 RxNorm TAKE 600 MG ORAL DAILY Diclofenac Sodium 1% Topical application Gel/Jelly 11/15/2020 04/15/20 23 TOPICAL APPLICATI ON NEEDED TWICE DAILY 1 APPL 937807 RxNorm 1 APPL TOPICAL APPLICATIO N NEEDED TWICE DAILY Docusate Sodium 100MG Oral Capsule, Liquid Filled 11/15/2020 04/15/20 23 ORAL TWICE A DAY 100 MILLIGRAMS 5056398 RxNorm TAKE 100 MILLIGRAMS ORAL TWICE A DAY Donepezil HCl 10MG Oral Tablet 11/15/2020 Unknown ORAL DAILY 10 MILLIGRAMS 369769 RxNorm TAKE 10 MILLIGRAMS ORAL DAILY Fexofenadine HCl 180MG Oral Tablet 11/15/2020 Unknown ORAL DAILY 180 MILLIGRAMS 418571 RxNorm TAKE 180 MILLIGRAMS ORAL DAILY Fluticasone Propionate 0.05MG/Actuati on Nasal [place] 11/15/2020 04/15/20 23 NASAL TWICE A DAY 1 SPRAY 0672508 RxNorm SPRAY 1 SPRAY NASAL TWICE A DAY Ibuprofen 200MG Oral Tablet 11/15/2020 04/15/20 23 ORAL NEEDED TWICE DAILY 600 MILLIGRAMS 697504 RxNorm TAKE 600 MILLIGRAMS ORAL NEEDED TWICE DAILY Imitrex 100MG Oral Tablet 11/15/2020 04/15/20 23 ORAL NEEDED 100 MILLIGRAMS 466028 RxNorm TAKE 100 MILLIGRAMS ORAL NEEDED Ipratropium [place] rol Sulfate 0.5MG/3ML-3MG/ 3ML Inhalation Solution 11/15/2020 04/15/20 23 INHALATIO N NEEDED TWICE DAILY 1 UNIT 1579263 RxNorm 1 UNIT INHALATION NEEDED TWICE DAILY Melatonin 10 MG Oral Capsule 11/15/2020 04/15/20 23 ORAL BEDTIME 10 MG 978188 RxNorm TAKE 10 MG ORAL BEDTIME Mirtazapine 15MG Oral Tablet 11/15/2020 04/15/20 23 ORAL BEDTIME 15 MILLIGRAMS 045013 RxNorm TAKE 15 MILLIGRAMS ORAL BEDTIME Omeprazole 40MG Oral Capsule, Delayed Release 11/15/2020 Unknown ORAL DAILY 40 MILLIGRAMS 864444 RxNorm TAKE 40 MILLIGRAMS ORAL DAILY PARoxetine HCl 20MG Oral Tablet 11/15/2020 04/15/20 23 ORAL DAILY 20 MILLIGRAMS 8631717 RxNorm TAKE 20 MILLIGRAMS ORAL DAILY Senna 8.6MG Oral Tablet 11/15/2020 04/15/20 23 ORAL NEEDED AT BEDTIME 8.6 MILLIGRAMS 915445 RxNorm TAKE 8.6 MILLIGRAMS ORAL NEEDED AT BEDTIME Singulair 10MG Oral Tablet 11/15/2020 04/15/20 23 ORAL EVERY EVENING 10 MILLIGRAMS 913280 RxNorm TAKE 10 MILLIGRAMS ORAL EVERY EVENING Trelegy Ellipta NA Inhalation Powder 11/15/2020 04/15/20 23 INHALATIO N DAILY 1 PUFF 4612782 RxNorm 1 PUFF INHALATION DAILY Vitamin D 2000 IU Oral Tablet 11/15/2020 04/15/20 23 ORAL WEEKLY 2000 IU 187645 RxNorm TAKE 2000 IU ORAL WEEKLY amLODIPine Besylate 10MG Oral Tablet 11/15/2020 Unknown ORAL DAILY 10 MILLIGRAMS 746131 RxNorm TAKE 10 MILLIGRAMS ORAL DAILY busPIRone 10MG Oral Tablet 11/15/2020 Unknown ORAL THREE TIMES A DAY 20 MILLIGRAMS 893635 RxNorm TAKE 20 MILLIGRAMS ORAL THREE TIMES A DAY predniSONE 20MG Oral Tablet 11/15/2020 04/15/20 23 ORAL DAILY 3 TABLET 927175 RxNorm TAKE 3 TABLET ORAL DAILY LORazepam 0.5MG Oral Tablet 04/17/2023 Unknown ORAL EVERY 6 HOURS 1 TABLET 938272 RxNorm TAKE 1 TABLET ORAL EVERY 6 [...] Name Date Status Code Code Syste m Arthroplasty, Glenohumeral J oint; Total Shoulder 11/12/2020 completed 24344 CPT Implants Implanted [id number] Status Assigning Authority Procedure Date Lot Number Serial Number Manufacturing Date Expiration Date Distinct ID Code Brand Name Model Number Total reverse shoulder prosthesis 102 7003 8694 0507 1726 0408 21AD 5641 023 Active FDA [id number] 07/23/2025 FLEX SHOULD ER SYSTEM [id number] Total reverse shoulder prosthesis 102 7002 8694 4543 1725 1213 21CZ 3920 3310 36 Active FDA [id number] 03/29/2025 Aequal is(TM) Ascend (TM) Flex [id number] Total reverse shoulder prosthesis 0103 7003 8694 1054 1725 1211 2191 19AV 009 Active FDA [id number] 09 03/27/2025 FLEX SHOULD ER SYSTEM [id number] Reverse shoulder prosthesis head 0100 8468 3206 1891 1726 0325 21CZ 5121 0570 10 Active FDA [id number] 07/09/2025 AEQUAL IS(TM) PerFOR M Revers ed [id number] Reverse shoulder prosthesis base plate 0100 8468 3206 1884 1726 0611 2174 89AW 015 Active FDA [id number] [id number] 09/25/2025 AEQUAL IS(TM) PerFOR M Revers ed [id number] Orthopaedi c bone screw, non-bioabs orbable, sterile 0100 8468 3206 2072 1726 0107 2132 33AW 004 Active FDA [id number] 04/23/2025 AEQUAL IS(TM) PerFOR M Revers ed [id number] Problems Problem Start Date Resolved Date Status Code Code System OBSTRUCTIVE CHRONIC BRONCHITIS WITH EXACERBATION active 956796164 SNOMED-CT ACUTE AND CHRONIC RESPIRATOR Y FAILURE active 66413982 SNOMED-CT COPD active 27087129 SNOMED-CT PLEURAL EFFUSION active 21034799 SNO MED-CT HEMOPTYSIS, UNSPECIFIED 11/13/2020 resolved 49410 005 SNOMED-CT SEPTICEMIA NOS 11/13/2020 resolved SNOM ED-CT OTHER AND UNSPECIFIED HYPERLIPIDEMIA 11/13/2020 resolved 67394562 SNOMED-CT LUMBAGO 11/13/2020 resolved 709232964 SNOMED-CT TRANSIENT ALTERED MENTAL STATUS 11/13/2020 resolved 482573212 SNOMED-CT CANDIDIASIS OF MOUTH 11/13/2020 resolved 79955514 SNOMED-CT CLOSED FRACTURE OF ONE RIB 11/13/2020 resolved 45 940850 SNOMED-CT PNEUMONIA 11/13/2020 resolved SNOMED-CT HYPOSMOLALITY AND/OR HYPONATREMIA 11/13/2020 resolved 053252445 SNOMED-CT Allergies and Adverse Reactions Allergy Substance Reaction Severity Start Date Concern Status Code Code System TRAZODONE Hallucinations (SNOMED-CT: 3479623) Moderate Active 62621 RxNorm LISINOPRIL Cough (SNOMED-CT: 64204696) Active 75300 RxNorm FOSAMAX Moderate Active 259284 RxNorm Plan of Treatment Pre-Op Testing 11/06/2020 Pre-Op Covid-19 Testing 03/21/2020 BONE DENSITY DEXA SPINE & HIP 3 PRE-OP COVID-19 TESTING 01/10/2022 MM SCREEN BILAT 10/22/2021 CT CHEST W/O CONTRAST 05/31/2021 NM MPI STR/RST 07/22/2021 Encounters Encounter Diagnosis Start Date Code Code Sys tem Other specified arthritis, right shoulder 11/12/2020 SNOMED-CT Personal Care Team Section Performer Name Performer Role Active Date Inactive Kannan sewell
--- OUTSIDE RECORDS SUMMARY | 2023-12-15 06:19 | XMS_ITS ---
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 Name Role Phone Unavailable Xwatchlist Unavailable FRANK Mujica MD Attending Unavailable HERACLIO SANDHU CRNA Unavailable CONI STANFORD Primary Unavailable Immunization Immunization Date Status Additional Notes Code Code System pneumococcal, unspecified formulation 02/27/2013 Completed 109 CVX Influenza, seasonal, injectable, preservative free 12/31/2012 Completed 140 CVX COVID-19, mRNA, LNP-S, PF, 1 00 mcg/0.5mL dose or 50 mcg/0.25mL dose 06/22/2020 Completed 207 CVX COVID-19, mRNA, LNP-S, PF, 1 00 mcg/0.5mL dose or 50 mcg/0.25mL dose 07/20/2020 Completed 207 CVX Results CBC W/ DIFFERENTIAL - Collec t Date/Time: 11/14/2020 08:21 [facility] ID: [id number] [address] [place] [address], [address] LOINC: 79465-0 Test Value Unit Reference Range Code Code System Flag WBC 12.90 th/cmm L=5.00 H=10.00 6690-2 LOINC H NEUT % 88.4 % L=40.0 H=80.0 H LYMPH % 6.0 % L=10.0 H=50.0 L MONO % 4.7 % L=2.0 H=12.0 09566-9 LOINC EOS % 0.0 % L=0.0 H=8.0 BASO % 0.2 % L=0.0 H=3.0 IG % 0.7 % L=0.0 H=1.1 2514-8 LOINC NRBC % 0.0 % L=0.0 H=0.0 90013-5 LOINC NEUT abs count 11.4 th/cmm L=1.6 H=8.4 751-8 LOINC H LYMPH abs count 0.8 th/cmm L=1.5 H=4.0 731-0 LOINC L MONO abs count 0.6 th/cmm L=0.2 H=1.0 742-7 LOINC EOS abs count 0.0 th/cmm L=0.0 H=0.5 711-2 LOINC BASO abs count 0.0 th/cmm L=0.0 H=0.2 704-7 LOINC IG abs count 0.1 th/cmm L=0.0 H=0.1 69154-6 LOINC NRBC abs count 0.0 mil/cmm L=0.0 H=0.0 50893-7 LOINC RBC 3.32 mil/cmm L=3.90 H=5.40 789-8 LOINC L HEMOGLOBIN 10.2 gm/dL L=12.0 H=16.0 718-7 LOINC L HEMATOCRIT 31 % L=37 H=47 4544-3 LOINC L MCV 93 fL L=82 H=92 787-2 LOINC H MCH 30.7 pg L=27.0 H=31.0 785-6 LOINC MCHC 33.2 % L=32.0 H=36.0 786-4 LOINC RDW-SD 43.9 fL L=39.0 H=49.0 788-0 LOINC PLATELET COUNT 216 th/cmm L=150 H=450 777-3 LOINC BASIC METABOLIC PANEL (BMP) - Collect Date/Time: 11/14/2020 08:21 [facility] ID: [id number] [address], [place], [address] LOINC: 13320-7 Test Value Unit Reference Range Code Code System Flag GLUCOSE 168 mg/dL L=70 H=116 2345-7 LOINC H BUN 13 mg/dL L=6 H=25 3094-0 LOINC CREATININE 0.83 mg/dL L=0.51 H=0.95 2160-0 [facility] SODIUM SERUM 138 mmol/L L=136 H=145 2951-2 LOINC POTASSIUM SERUM 4.2 mmol/L L=3.4 H=5.2 2823-3 [facility] CHLORIDE SERUM 102 mmol/L L=96 H=110 2075-0 [facility] CARBON DIOXIDE (CO2) 27 mmol/L L=22 H=34 8-9 [facility] ANION GAP 8.9 mmol/L 40020-5 [facility] CALCIUM SERUM 8.8 mg/dL L=8.2 H=10.2 04988-5 [facility] AGE 70 years eGFR (non-Afr.Amer.) 68 mL/min 57564-9 [facility] eGFR (Afr-[place]i) 82 mL/min 63397-0 [facility] ARTERIAL BLOOD GAS - Collect Date/Time: 11/13/2020 14:05 [facility] ID: [id number] [address] [place] [address], [address] LOINC: 09950-5 Test Value Unit Reference Range Code Code System Flag Specimen type: ARTERIAL pH 7.44 L=7.35 H=7.45 2744-1 [facility] PCO2 36 mm Hg L=35 H=45 2018-8 LOINC PO2 83 mm Hg L=80 H=100 2703-7 [facility] HCO3 25 mmol/L L=22 H=26 1960-4 LOINC TCO2 26 mmol/L L=22 H=34 76746-0 [facility] BASE EXCESS 0.0 mmol/L L=-1.5 H=1.5 5-7 [facility] O2 SAT. 97 % L=90 H=100 2708-6 [facility] FIO2 Delivery By: Liters / min. 5 Assist vent. Resp. Rate /min. Temp. Drawn From: Left Brachi BNP (PRO-B NATRIURETIC PEPTI DE) - Collect Date/Time: 11/13/2020 11:09 [facility] ID: [id number] [address] [place] [address], [address] LOINC: 24602-5 Test Value Unit Reference Range Code Code System Flag NT-proBNP 519.0 pg/mL L=0.0 H=125 70264-1 LOINC H CBC W/ DIFFERENTIAL - Collec t Date/Time: 11/13/2020 11:09 [facility] ID: [id number] [address] [place] [address], [address] LOINC: 73024-3 Test Value Unit Reference Range Code Code System Flag WBC 14.23 th/cmm L=5.00 H=10.00 6690-2 LOINC H NEUT % 79.9 % L=40.0 H=80.0 LYMPH % 12.8 % L=10.0 H=50.0 MONO % 6.7 % L=2.0 H=12.0 54712-9 LOINC EOS % 0.1 % L=0.0 H=8.0 BASO % 0.1 % L=0.0 H=3.0 IG % 0.4 % L=0.0 H=1.1 2514-8 LOINC NRBC % 0.0 % L=0.0 H=0.0 16555-0 LOINC NEUT abs count 11.4 th/cmm L=1.6 H=8.4 751-8 LOINC H LYMPH abs count 1.8 th/cmm L=1.5 H=4.0 731-0 LOINC MONO abs count 1.0 th/cmm L=0.2 H=1.0 742-7 LOINC EOS abs count 0.0 th/cmm L=0.0 H=0.5 711-2 LOINC BASO abs count 0.0 th/cmm L=0.0 H=0.2 704-7 LOINC IG abs count 0.1 th/cmm L=0.0 H=0.1 94262-8 LOINC NRBC abs count 0.0 mil/cmm L=0.0 H=0.0 92145-8 LOINC RBC 3.50 mil/cmm L=3.90 H=5.40 789-8 LOINC L HEMOGLOBIN 10.7 gm/dL L=12.0 H=16.0 718-7 LOINC L HEMATOCRIT 32 % L=37 H=47 4544-3 LOINC L MCV 91 fL L=82 H=92 787-2 LOINC MCH 30.6 pg L=27.0 H=31.0 785-6 LOINC MCHC 33.4 % L=32.0 H=36.0 786-4 LOINC RDW-SD 42.4 fL L=39.0 H=49.0 788-0 LOINC PLATELET COUNT 254 th/cmm L=150 H=450 777-3 LOINC BASIC METABOLIC PANEL (BMP) - Collect Date/Time: 11/13/2020 11:09 [facility] ID: [id number] [address] [place] [address], [address] LOINC: 09953-1 Test Value Unit Reference Range Code Code System Flag GLUCOSE 134 mg/dL L=70 H=116 2345-7 LOINC H BUN 17 mg/dL L=6 H=25 3094-0 LOINC CREATININE 0.78 mg/dL L=0.51 H=0.95 2160-0 LOINC SODIUM SERUM 138 mmol/L L=136 H=145 2951-2 LOINC POTASSIUM SERUM 3.2 mmol/L L=3.4 H=5.2 2823-3 LOINC L CHLORIDE SERUM 103 mmol/L L=96 H=110 2075-0 LOINC CARBON DIOXIDE (CO2) 25 mmol/L L=22 H=34 2028-9 LOINC ANION GAP 9.6 mmol/L 92670-3 LOINC CALCIUM SERUM 8.4 mg/dL L=8.2 H=10.2 37854-1 LOINC AGE 70 years eGFR (non-Afr.Amer.) 73 mL/min 18905-6 [facility] eGFR (Afr-[place]i) 89 mL/min 32959-4 [facility] PTT PARTIAL THROMBOPLASTIN T ABBEY - Collect Date/Time: 11/13/2020 06:40 [facility] ID: [id number] [address] [place] [address], [address] LOINC: 63826-4 Test Value Unit Reference Range Code Code System Flag PTT 23.6 seconds L=24.5 H=32.8 98349-9 LOINC L PT PROTHROMBIN TIME - Colle t Date/Time: 11/13/2020 06:40 [facility] ID: [id number] [address] [place] [address], [address] LOINC: 5902-2 Test Value Unit Reference Range Code Code System Flag PROTIME 10.0 seconds L=9.3 H=11.4 5902-2 LOINC INR 0.98 L=2.00 H=3.00 15581-1 LOINC L SED RATE - Collect Date/Time : 11/06/2020 13:10 [facility] ID: [id number] - [id number] [address] [place] [address], [address] LOINC: 4537-7 Test Value Unit Reference Range Code Code System Flag SED. RATE 1 mm/hr L=0 H=30 4537-7 LOINC MRSA/MSSA NASAL COMPLETE BY PCR - Collect Date/Time: 11/06/2020 13:10 [facility] ID: [id number] [address] [place] [address], [address] LOINC: Test Value Unit Reference Range Code Code System Flag MRSA NEGATIVE Normal: Negative 40301-8 LOINC MSSA NEGATIVE Normal: Negative CBC W/ DIFFERENTIAL - [facility] t Date/Time: 11/06/2020 13:10 [facility] ID: [id number] [address] [place] [address], [address] LOINC: 65967-5 Test Value Unit Reference Range Code Code System Flag WBC 6.92 th/cmm L=5.00 H=10.00 6690-2 LOINC NEUT % 49.4 % L=40.0 H=80.0 LYMPH % 38.3 % L=10.0 H=50.0 MONO % 8.4 % L=2.0 H=12.0 92040-3 LOINC EOS % 2.3 % L=0.0 H=8.0 BASO % 1.2 % L=0.0 H=3.0 IG % 0.4 % L=0.0 H=1.1 2514-8 LOINC NRBC % 0.0 % L=0.0 H=0.0 03650-7 LOINC NEUT abs count 3.4 th/cmm L=1.6 H=8.4 751-8 LOINC LYMPH abs count 2.7 th/cmm L=1.5 H=4.0 731-0 LOINC MONO abs count 0.6 th/cmm L=0.2 H=1.0 742-7 LOINC EOS abs count 0.2 th/cmm L=0.0 H=0.5 711-2 LOINC BASO abs count 0.1 th/cmm L=0.0 H=0.2 704-7 LOINC IG abs count 0.0 th/cmm L=0.0 H=0.1 99069-5 LOINC NRBC abs count 0.0 mil/cmm L=0.0 H=0.0 16372-2 LOINC RBC 4.01 mil/cmm L=3.90 H=5.40 789-8 LOINC HEMOGLOBIN 12.3 gm/dL L=12.0 H=16.0 718-7 LOINC HEMATOCRIT 37 % L=37 H=47 4544-3 LOINC MCV 91 fL L=82 H=92 787-2 LOINC MCH 30.7 pg L=27.0 H=31.0 785-6 LOINC MCHC 33.6 % L=32.0 H=36.0 786-4 LOINC RDW-SD 41.6 fL L=39.0 H=49.0 788-0 LOINC PLATELET COUNT 283 th/cmm L=150 H=450 777-3 LOINC C REACTIVE PROTEIN HIGH SENS ITIVITY - Collect Date/Time: 11/06/2020 13:10 [facility] ID: [id number] [address] [place], [place], [address] LOINC: 67362-9 Test Value Unit Reference Range Code Code System Flag CRP-HIGH SENS. 2.22 mg/L L=0.00 H=3.00 72781-2 LOINC CRP-HIGH SENS 0.22 mg/dL L=0.00 H=0.30 91643-9 LOINC BASIC METABOLIC PANEL (BMP) - Collect Date/Time: 11/06/2020 13:10 [facility] ID: [id number] - [id number] [address] [place], [place], [address] LOINC: 06454-5 Test Value Unit Reference Range Code Code System Flag GLUCOSE 82 mg/dL L=70 H=116 2345-7 LOINC BUN 15 mg/dL L=6 H=25 3094-0 LOINC CREATININE 1.17 mg/dL L=0.51 H=0.95 2160-0 LOINC H SODIUM SERUM 143 mmol/L L=136 H=145 2951-2 LOINC POTASSIUM SERUM 3.9 mmol/L L=3.4 H=5.2 2823-3 LOINC CHLORIDE SERUM 106 mmol/L L=96 H=110 2075-0 LOINC CARBON DIOXIDE (CO2) 28 mmol/L L=22 H=34 2028-9 LOINC ANION GAP 9.0 mmol/L 16817-5 LOINC CALCIUM SERUM 8.4 mg/dL L=8.2 H=10.2 43555-7 LOINC AGE 70 years eGFR (non-Afr.Amer.) 46 mL/min 97913-4 LOINC eGFR (Afr-[place]i) 55 mL/min 23653-2 LOINC CHEST PA AND LATERAL 2V - Co mpleted: 11/14/2020 14:55 LOINC: PA AND LATERAL CHEST The examination is compared with previous examination of November 12. There is increased interval expansion of the right lung with decreased radiodensities in the right lung base in comparison with a prior examination. The left lung remains fairly well expanded. No gross pleural effusion seen. CONCLUSION: Some interval improvement since prior examination. Right basilar atelectasis or consolidation again noted. Dictated by: LIDIA LÓPEZ M.D. RADIOLOGIST Transcribed by: ALESIA 11/15/20/12:27 D 11/14/2020 15:23:37 [id number] Electronically Reviewed and Signed By: ERIKA LÓPEZ M.D. RADIOLOGIST 11/15/20 16:22 DISCHARGED CHEST PA AND LATERAL 2V - Co mpleted: 11/13/2020 15:03 LOINC: CHEST Compared to 06/03/19. There are now bilateral shoulder prostheses, not previously present. There is cardiomegaly again noted and a tortuous descending thoracic aorta again evident. Left lung remains clear but there is now infiltrate and atelectasis in the lower right lung field as well as a right pleural effusion. There is also a fracture of the right 7th rib, age indeterminate. There is no pneumothorax. Some scarring is also again evident in the right upper lobe region, similar to the prior study and also unchanged from May 2015. IMPRESSION: Significant infiltrate, atelectasis, and pleural effusion on the right side. Also right-sided rib fracture as described above. However, this rib fracture was evident on chest x-ray of May 2015. Dictated by: MEREDITH FREY M.D. RADIOLOGIST Transcribed by: [facility] 11/13/20/12:07 D 11/13/2020 07:31:44 [id number] Electronically Reviewed and Signed By: ZAKIA FREY M.D. RADIOLOGIST 11/13/20 18:10 CT ANGIOGRAPHY PULMONARY (PE ) - Completed: 11/13/2020 13:30 LOINC: 41382-2 Radiation optimization: All CT scans at this facility use at least one of these dose optimization techniques: automated exposure control; mA and/or kV adjustment per patient size (includes targeted exams where dose is matched to clinical indication); or iterative reconstruction. CTA CHEST FOR PULMONARY EMBOLI Chest x-ray was reviewed. This patient underwent right shoulder arthroplasty yesterday. Pulmonary arteries: There are no intraarterial filling defects within the pulmonary arterial tree to suggest the presence of acute pulmonary emboli. Lungs: Right hemidiaphragm is elevated and there is mild infiltrate and atelectasis in the right lung base, right lower lobe just above the hemidiaphragm and involving the posterior basal segment of the right lower lobe. These findings are superimposed upon advanced bilateral emphysematous lung disease. No pleural effusion on either side. There is some ground-glass infiltrate seen throughout the left lung, not associated with pleural effusion. There are no significant focal findings in the trachea and mainstem bronchi. Mediastinum: There is no hilar nor mediastinal adenopathy. No axillary adenopathy. Cardiac: Cardiomegaly. No pericardial effusion. Caliber of thoracic aorta is upper normal. No dissection. Osseous: No significant osseous lesions evident. There is a slightly displaced fracture of the posterior aspect of the right 8th rib. Probably not acute. No other rib fractures identified. No rib lesions. Adjacent compression fractures mid- lower to thoracic vertebrae, probably T8 and T9. These fractures are not evident on an MRI scan of 2013. There are no interval spinal imaging studies. Also not evident on prior CT scan of May 2013. IMPRESSION: 1. No evidence of acute pulmonary emboli nor pulmonary infarction. 2. Elevated right hemidiaphragm with mild infiltrate and atelectasis in the right lung base, not associated with pleural effusion. 3. Severe bilateral emphysematous disease and ground-glass infiltrate throughout the left lung, also without pleural effusion. 4. Right 8th rib fracture, probably not acute. 5. Adjacent compression fractures of T8 and T9, age indeterminate but possibly subacute. Correlation with tenderness over this area recommended. These fractures were not evident on CT and MRI scans of 2013 (which are the most recent spinal imaging studies). Dictated by: MEREDITH FREY M.D. RADIOLOGIST Transcribed by: ALESIA 11/13/20:13 D 11/13/2020 12:19:22 [id number] Electronically Reviewed and Signed By: ZAKIA FREY M.D. RADIOLOGIST 11/14/20 12:06 SHOULDER RIGHT 2V - Complete d: 11/12/2020 16:11 LOINC: Three views. Comparison 11/06/20. The patient is now status post right reverse total shoulder replacement. The orthopedic hardware appears in good position. The bones are intact and normally mineralized. Post surgical changes are seen in the soft tissues. IMPRESSION: Status post right shoulder replacement. Dictated by: OLIVIA ROSENBAUM M.D. RADIOLOGIST Transcribed by: DON 11/13/20/09:56 D 11/12/2020 14:43:48 [id number] Electronically Reviewed and Signed By: OBED ROSENBAUM M.D. RADIOLOGIST 11/15/20 13:22 Copy for: [facility] Social History Type Status Start Date End Date Code Code Syst em Smoking History Former smoker 04/17/19986398 8991438 SNOMED CT Sex Female Vital Signs Vital Sign Value Unit Pilger Value Pilger Unit Date/Time Recent/Initial? Code Code System Systolic Blood Pressure 136 mm[Hg] 11/15/2020 12:36 Most Recent 8480-6 LOINC Diastolic Blood Pressure 65 mm[Hg] 11/15/2020 12:36 Most Recent 8462-4 LOINC Systolic Blood Pressure 139 mm[Hg] 11/12/2020 16:50 Initial 8480-6 LOINC Diastolic Blood Pressure 88 mm[Hg] 11/12/2020 16:50 Initial 8462-4 LOINC O2 Saturation 92 % 2020 12:36 Most Recent 28398- 5 LOINC O2 Saturation 94 % 2020 16:50 Initial 75405- 5 LOINC Inhaled Oxygen Flow Rate 2.50 L/min 11/15/2020 12:19 Most Recent 3151-8 LOINC Inhaled Oxygen Flow Rate 2.50 L/min 11/12/2020 17:21 Initial 3151-8 LOINC Fraction of Inspired Oxygen 40 % 11/13/2020 13:27 Initial 3150-0 LOINC Pulse 82.0 /min 11/15/2020 12:36 Most Recent 8867-4 LOINC Pulse 81.0 /min 11/12/2020 16:50 Initial 8867-4 LOINC Respiration 18 /min 11/16/19 21 12:36 Most Recent 9279-1 LOINC Respiration 14 /min 11/13/19 16:50 Initial 9279-1 LOINC Temperature 36.8 [place] 98.2 F 11/16/19 21 12:36 Most Recent 8310-5 INC Temperature 36.1 [place] 97.0 F 11/13/19 21 16:50 Initial 8310-5 [facility] Medications Medication Start Date End Date Route Frequency Dose Code Code System Medication Instructions Home Meds Multivitamin Oral Tablet 06/25/2015 Unknown ORAL DAILY 1 TABLET 1834236 RxNorm TAKE 1 TABLET ORAL DAILY Acetaminophen 500MG Oral Tablet 11/15/2020 04/15/20 23 ORAL NEEDED 500 MILLIGRAMS 203570 RxNorm TAKE 500 MILLIGRAMS ORAL NEEDED Amitriptyline 25MG Oral Tablet 11/15/2020 04/15/20 23 ORAL EVERY EVENING 25 MILLIGRAMS 629677 RxNorm TAKE 25 MILLIGRAMS ORAL EVERY EVENING Azithromycin 250MG Oral Tablet 11/15/2020 04/15/20 23 ORAL DAILY 250 MILLIGRAMS 560861 RxNorm TAKE 250 MILLIGRAMS ORAL DAILY Calcium 600 MG Oral Tablet 11/15/2020 04/15/20 23 ORAL DAILY 600 MG 849515 RxNorm TAKE 600 MG ORAL DAILY Diclofenac Sodium 1% Topical application Gel/Jelly 11/15/2020 04/15/20 23 TOPICAL APPLICATI ON NEEDED TWICE DAILY 1 APPL 964175 RxNorm 1 APPL TOPICAL APPLICATIO N NEEDED TWICE DAILY Docusate Sodium 100MG Oral Capsule, Liquid Filled 11/15/2020 04/15/20 23 ORAL TWICE A DAY 100 MILLIGRAMS 7132782 RxNorm TAKE 100 MILLIGRAMS ORAL TWICE A DAY Donepezil HCl 10MG Oral Tablet 11/15/2020 Unknown ORAL DAILY 10 MILLIGRAMS 319695 RxNorm TAKE 10 MILLIGRAMS ORAL DAILY Fexofenadine HCl 180MG Oral Tablet 11/15/2020 Unknown ORAL DAILY 180 MILLIGRAMS 733942 RxNorm TAKE 180 MILLIGRAMS ORAL DAILY Fluticasone Propionate 0.05MG/Actuati on Nasal Manquin 11/15/2020 04/15/20 23 NASAL TWICE A DAY 1 SPRAY 1982610 RxNorm SPRAY 1 SPRAY NASAL TWICE A DAY Ibuprofen 200MG Oral Tablet 11/15/2020 04/15/20 23 ORAL NEEDED TWICE DAILY 600 MILLIGRAMS 239087 RxNorm TAKE 600 MILLIGRAMS ORAL NEEDED TWICE DAILY Imitrex 100MG Oral Tablet 11/15/2020 04/15/20 23 ORAL NEEDED 100 MILLIGRAMS 174380 RxNorm TAKE 100 MILLIGRAMS ORAL NEEDED Ipratropium [place] rol Sulfate 0.5MG/3ML-3MG/ 3ML Inhalation Solution 11/15/2020 04/15/20 23 INHALATIO N NEEDED TWICE DAILY 1 UNIT 5543306 RxNorm 1 UNIT INHALATION NEEDED TWICE DAILY Melatonin 10 MG Oral Capsule 11/15/2020 04/15/20 23 ORAL BEDTIME 10 MG 154842 RxNorm TAKE 10 MG ORAL BEDTIME Mirtazapine 15MG Oral Tablet 11/15/2020 04/15/20 23 ORAL BEDTIME 15 MILLIGRAMS 046608 RxNorm TAKE 15 MILLIGRAMS ORAL BEDTIME Omeprazole 40MG Oral Capsule, Delayed Release 11/15/2020 Unknown ORAL DAILY 40 MILLIGRAMS 492920 RxNorm TAKE 40 MILLIGRAMS ORAL DAILY PARoxetine HCl 20MG Oral Tablet 11/15/2020 04/15/20 23 ORAL DAILY 20 MILLIGRAMS 9267675 RxNorm TAKE 20 MILLIGRAMS ORAL DAILY Senna 8.6MG Oral Tablet 11/15/2020 04/15/20 23 ORAL NEEDED AT BEDTIME 8.6 MILLIGRAMS 858208 RxNorm TAKE 8.6 MILLIGRAMS ORAL NEEDED AT BEDTIME Singulair 10MG Oral Tablet 11/15/2020 04/15/20 23 ORAL EVERY EVENING 10 MILLIGRAMS 550770 RxNorm TAKE 10 MILLIGRAMS ORAL EVERY EVENING Trelegy Ellipta NA Inhalation Powder 11/15/2020 04/15/20 23 INHALATIO N DAILY 1 PUFF 7040094 RxNorm 1 PUFF INHALATION DAILY Vitamin D 2000 IU Oral Tablet 11/15/2020 04/15/20 23 ORAL WEEKLY 2000 IU 399511 RxNorm TAKE 2000 IU ORAL WEEKLY amLODIPine Besylate 10MG Oral Tablet 11/15/2020 Unknown ORAL DAILY 10 MILLIGRAMS 076018 RxNorm TAKE 10 MILLIGRAMS ORAL DAILY busPIRone 10MG Oral Tablet 11/15/2020 Unknown ORAL THREE TIMES A DAY 20 MILLIGRAMS 161109 RxNorm TAKE 20 MILLIGRAMS ORAL THREE TIMES A DAY predniSONE 20MG Oral Tablet 11/15/2020 04/15/20 23 ORAL DAILY 3 TABLET 400357 RxNorm TAKE 3 TABLET ORAL DAILY LORazepam 0.5MG Oral Tablet 04/17/2023 Unknown ORAL EVERY 6 HOURS 1 TABLET 980900 RxNorm TAKE 1 TABLET ORAL EVERY 6 [...] Name Date Status Code Code Syste m Replacement of Right Shoulde r Joint with Reverse Ball and Socket Synthetic Substitute, Open Approach 11/12/2020 completed [id number] ICD10P CS Introduction of Anesthetic A gent into Peripheral Nerves and Plexi, Percutaneous Approach 11/12/2020 completed [id number] Anesthesia, Open/Surg Arthro scopic Proc, Humeral Head & Neck, Sternoclav/Ac/Shoulder Jt; Replacemen 11/12/2020 completed 78651 CPT Implants Implanted [id number] Status Assigning Authority Procedure Date Lot Number Serial Number Manufacturing Date Expiration Date Distinct ID Code Brand Name Model Number Total reverse shoulder prosthesis 0103 7003 8694 0507 1726 0408 21AD 5641 023 Active FDA [id number] 07/23/2025 FLEX SHOULD ER SYSTEM [id number] Total reverse shoulder prosthesis 0103 7003 8694 4543 1725 1213 21CZ 3920 3310 36 Active FDA [id number] 03/29/2025 Aequal is(TM) Ascend (TM) Flex [id number] Total reverse shoulder prosthesis 0103 7003 8694 1054 1725 1211 2191 19AV 009 Active FDA [id number] 03/27/2025 FLEX SHOULD ER SYSTEM [id number] Reverse shoulder prosthesis head 0100 8468 3206 1891 1726 0325 21CZ 5121 0570 10 Active FDA [id number] 07/09/2025 AEQUAL IS(TM) PerFOR M Revers ed [id number] Reverse shoulder prosthesis base plate 0100 8468 3206 1884 1726 0611 2174 89AW 015 Active FDA [id number] W015 09/25/2025 AEQUAL IS(TM) PerFOR M Revers ed [id number] Orthopaedi c bone screw, non-bioabs orbable, sterile 0100 8468 3206 2072 1726 0107 2132 33AW 004 Active FDA [id number] 04/23/2025 AEQUAL IS(TM) PerFOR M Revers ed [id number] Problems Problem Start Date Resolved Date Status Code Code System OBSTRUCTIVE CHRONIC BRONCHITIS WITH EXACERBATION active 241649546 SNOMED-CT ACUTE AND CHRONIC RESPIRATOR Y FAILURE active 89409127 SNOMED-CT COPD active 53329106 SNOMED-CT PLEURAL EFFUSION active 07771496 SNO MED-CT HEMOPTYSIS, UNSPECIFIED 11/13/2020 resolved 43773 005 SNOMED-CT SEPTICEMIA NOS 11/13/2020 resolved SNOM ED-CT OTHER AND UNSPECIFIED HYPERLIPIDEMIA 11/13/2020 resolved 05664765 SNOMED-CT LUMBAGO 11/13/2020 resolved 781926570 SNOMED-CT TRANSIENT ALTERED MENTAL STATUS 11/13/2020 resolved 017017515 SNOMED-CT CANDIDIASIS OF MOUTH 11/13/2020 resolved 88913228 SNOMED-CT CLOSED FRACTURE OF ONE RIB 11/13/2020 resolved 45 235398 SNOMED-CT PNEUMONIA 11/13/2020 resolved SNOMED-CT HYPOSMOLALITY AND/OR HYPONATREMIA 11/13/2020 resolved 557203494 SNOMED-CT Allergies and Adverse Reactions Allergy Substance Reaction Severity Start Date Concern Status Code Code System TRAZODONE Hallucinations (SNOMED-CT: 4103852) Moderate Active 83270 RxNorm LISINOPRIL Cough (SNOMED-CT: 16343204) Active 95274 RxNorm FOSAMAX Moderate Active 486663 RxNorm Plan of Treatment Pre-Op Testing 11/06/2020 Pre-Op Covid-19 Testing 03/21/2020 BONE DENSITY DEXA SPINE & HIP PRE-OP COVID-19 TESTING 01/10/2022 MM SCREEN BILAT 10/22/2021 CT CHEST W/O CONTRAST 05/31/2021 NM MPI STR/RST 07/22/2021 Encounters Encounter Diagnosis Start Date Code Code Sys tem Other specific arthropathies , not elsewhere classified, right shoulder 11/12/2020 SNOMED-CT Personal Care Team Section Performer Name Performer Role Active Date Inactive Da te Progress Notes
--- OUTSIDE RECORDS SUMMARY | 2023-12-15 06:19 | XMS_ITS ---
Author Organization Unknown Address [address] [place] [address] [phone] Phone Care Team Providers Care Scagliola Mechanic Name Role Phone KIRSTIN CLAY MD Attending Unavailable [facility] Unavailable CONI STANFORD Primary Unavailable Immunization Immunization [...] dose 07/20/2020 Completed [address] CHEST W/O CONTRAST - Comp leted: 11/21/2020 19:03 LOINC: Radiation optimization: All CT scans at this facility use at least one of these dose optimization techniques: automated exposure control; mA and/or kV adjustment per patient size (includes targeted exams where dose is matched to clinical indication); or iterative reconstruction. CT examination of the chest was performed without contrast administration. There are bilateral shoulder joint prostheses in position. There are apparent acute fractures of left 5th and 6th ribs anteriorly. No associated pneumothorax or pulmonary contusion. There are severe pulmonary emphysematous changes. There is borderline cardiomegaly. Tracheobronchial tree is grossly intact. No pleural effusion or hemothorax. No mediastinal or hilar adenopathy. Images obtained through the upper abdomen show unremarkable appearance of visualized portions of the liver and spleen. CONCLUSION:Left 5th and 6th anterior acute rib fractures. No other significant findings. Dictated by: LIDIA LÓPEZ M.D. RADIOLOGIST Transcribed by: ELGIN 11/22/2019:53 D Sunday, November 22, 2020 1:02:50 PM [id number] Electronically Reviewed and Signed By: ERIKA LÓPEZ M.D. RADIOLOGIST 11/23/20 19:59 DISCHARGED Social History Type Status Start Date End Date Code Code Syst em Smoking History Former smoker 04/17/19982644 7673894 SNOMED CT Sex Female Medications Medication Start Date End Date Route Frequency Dose Code Code System Medication Instructions Home Meds Multivitamin Oral Tablet 06/25/2015 Unknown ORAL DAILY 1 TABLET 1079831 RxNorm TAKE 1 TABLET ORAL DAILY Acetaminophen 500MG Oral Tablet 11/15/2020 04/15/20 23 ORAL NEEDED 500 MILLIGRAMS 945025 RxNorm TAKE 500 MILLIGRAMS ORAL NEEDED Amitriptyline 25MG Oral Tablet 11/15/2020 04/15/20 23 ORAL EVERY EVENING 25 MILLIGRAMS 572209 RxNorm TAKE 25 MILLIGRAMS ORAL EVERY EVENING Azithromycin 250MG Oral Tablet 11/15/2020 04/15/20 23 ORAL DAILY 250 MILLIGRAMS 877556 RxNorm TAKE 250 MILLIGRAMS ORAL DAILY Calcium 600 MG Oral Tablet 11/15/2020 04/15/20 23 ORAL DAILY 600 MG 554837 RxNorm TAKE 600 MG ORAL DAILY Diclofenac Sodium 1% Topical application Gel/Jelly 11/15/2020 04/15/20 23 TOPICAL APPLICATI ON NEEDED TWICE DAILY 1 APPL 604878 RxNorm 1 APPL TOPICAL APPLICATIO N NEEDED TWICE DAILY Docusate Sodium 100MG Oral Capsule, Liquid Filled 11/15/2020 04/15/20 23 ORAL TWICE A DAY 100 MILLIGRAMS 0097378 RxNorm TAKE 100 MILLIGRAMS ORAL TWICE A DAY Donepezil HCl 10MG Oral Tablet 11/15/2020 Unknown ORAL DAILY 10 MILLIGRAMS 210975 RxNorm TAKE 10 MILLIGRAMS ORAL DAILY Fexofenadine HCl 180MG Oral Tablet 11/15/2020 Unknown ORAL DAILY 180 MILLIGRAMS 983813 RxNorm TAKE 180 MILLIGRAMS ORAL DAILY Fluticasone Propionate 0.05MG/Actuati on Nasal [place] 11/15/2020 04/15/20 23 NASAL TWICE A DAY 1 SPRAY 6093387 RxNorm SPRAY 1 SPRAY NASAL TWICE A DAY Ibuprofen 200MG Oral Tablet 11/15/2020 04/15/20 23 ORAL NEEDED TWICE DAILY 600 MILLIGRAMS 156554 RxNorm TAKE 600 MILLIGRAMS ORAL NEEDED TWICE DAILY Imitrex 100MG Oral Tablet 11/15/2020 04/15/20 23 ORAL NEEDED 100 MILLIGRAMS 732778 RxNorm TAKE 100 MILLIGRAMS ORAL NEEDED Ipratropium [place] rol Sulfate 0.5MG/3ML-3MG/ 3ML Inhalation Solution 11/15/2020 04/15/20 23 INHALATIO N NEEDED TWICE DAILY 1 UNIT 4464264 RxNorm 1 UNIT INHALATION NEEDED TWICE DAILY Melatonin 10 MG Oral Capsule 11/15/2020 04/15/20 23 ORAL BEDTIME 10 MG 041832 RxNorm TAKE 10 MG ORAL BEDTIME Mirtazapine 15MG Oral Tablet 11/15/2020 04/15/20 23 ORAL BEDTIME 15 MILLIGRAMS 164263 RxNorm TAKE 15 MILLIGRAMS ORAL BEDTIME Omeprazole 40MG Oral Capsule, Delayed Release 11/15/2020 Unknown ORAL DAILY 40 MILLIGRAMS 194236 RxNorm TAKE 40 MILLIGRAMS ORAL DAILY PARoxetine HCl 20MG Oral Tablet 11/15/2020 04/15/20 23 ORAL DAILY 20 MILLIGRAMS 9484671 RxNorm TAKE 20 MILLIGRAMS ORAL DAILY Senna 8.6MG Oral Tablet 11/15/2020 04/15/20 23 ORAL NEEDED AT BEDTIME 8.6 MILLIGRAMS 176393 RxNorm TAKE 8.6 MILLIGRAMS ORAL NEEDED AT BEDTIME Singulair 10MG Oral Tablet 11/15/2020 04/15/20 23 ORAL EVERY EVENING 10 MILLIGRAMS 670187 RxNorm TAKE 10 MILLIGRAMS ORAL EVERY EVENING Trelegy Ellipta NA Inhalation Powder 11/15/2020 04/15/20 23 INHALATIO N DAILY 1 PUFF 6004984 RxNorm 1 PUFF INHALATION DAILY Vitamin D 2000 IU Oral Tablet 11/15/2020 04/15/20 23 ORAL WEEKLY 2000 IU 051245 RxNorm TAKE 2000 IU ORAL WEEKLY amLODIPine Besylate 10MG Oral Tablet 11/15/2020 Unknown ORAL DAILY 10 MILLIGRAMS 989293 RxNorm TAKE 10 MILLIGRAMS ORAL DAILY busPIRone 10MG Oral Tablet 11/15/2020 Unknown ORAL THREE TIMES A DAY 20 MILLIGRAMS 172514 RxNorm TAKE 20 MILLIGRAMS ORAL THREE TIMES A DAY predniSONE 20MG Oral Tablet 11/15/2020 04/15/20 23 ORAL DAILY 3 TABLET 517274 RxNorm TAKE 3 TABLET ORAL DAILY LORazepam 0.5MG Oral Tablet 04/17/2023 Unknown ORAL EVERY 6 HOURS 1 TABLET 184235 RxNorm TAKE 1 TABLET ORAL EVERY 6 [...] 1726 0408 21AD 5641 023 Active FDA [id number] 23 07/23/2025 FLEX SHOULD ER SYSTEM [id number] Total reverse shoulder prosthesis 0103 7003 8694 4543 1725 1213 21CZ 3920 3310 36 Active FDA [id number] 03/29/2025 Aequal is(TM) Ascend (TM) Flex [id number] Total reverse shoulder prosthesis 0103 7003 8694 1054 1725 1211 2191 19AV 009 Active FDA [id number] 09 03/27/2025 FLEX SHOULD ER SYSTEM [id number] Reverse shoulder prosthesis head 0100 8468 3206 1891 1726 0325 21CZ 5121 0570 10 Active FDA [id number] 89558 07/09/2025 AEQUAL IS(TM) PerFOR M Revers ed [id number] Reverse shoulder prosthesis base plate 0100 8468 3206 1884 1726 0611 2174 89AW 015 Active FDA [id number] W015 09/25/2025 AEQUAL IS(TM) PerFOR M Revers ed [id number] Orthopaedi c bone screw, non-bioabs orbable, sterile 0100 8468 3206 2072 1726 0107 2132 33AW 004 Active FDA [id number] 04 04/23/2025 AEQUAL IS(TM) PerFOR M Revers ed QOV472 Problems Problem Start Date Resolved Date Status Code Code System OBSTRUCTIVE CHRONIC BRONCHITIS WITH EXACERBATION active 970274143 SNOMED-CT ACUTE AND CHRONIC RESPIRATOR Y FAILURE active 47554384 SNOMED-CT COPD active 97015946 SNOMED-CT PLEURAL EFFUSION active 61710667 SNO MED-CT HEMOPTYSIS, UNSPECIFIED 11/13/2020 resolved 40551 005 SNOMED-CT SEPTICEMIA NOS 11/13/2020 resolved SNOM ED-CT OTHER AND UNSPECIFIED HYPERLIPIDEMIA 11/13/2020 resolved 44446507 SNOMED-CT LUMBAGO 11/13/2020 resolved 598784743 SNOMED-CT TRANSIENT ALTERED MENTAL STATUS 11/13/2020 resolved 755491131 SNOMED-CT CANDIDIASIS OF MOUTH 11/13/2020 resolved 96049844 SNOMED-CT CLOSED FRACTURE OF ONE RIB 11/13/2020 resolved 45 243801 SNOMED-CT PNEUMONIA 11/13/2020 resolved SNOMED-CT HYPOSMOLALITY AND/OR HYPONATREMIA 11/13/2020 resolved 161012307 SNOMED-CT Allergies and Adverse Reactions Allergy Substance Reaction Severity Start Date Concern Status Code Code System TRAZODONE Hallucinations (SNOMED-CT: 5792174) Moderate Active 46001 RxNorm LISINOPRIL Cough (SNOMED-CT: 62129314) Active 81977 RxNorm FOSAMAX Moderate Active 652671 RxNorm Plan of Treatment Pre-Op Testing 11/06/2020 Pre-Op Covid-19 Testing 03/21/2020 BONE DENSITY DEXA SPINE & HIP 3 PRE-OP COVID-19 TESTING 01/10/2022 MM SCREEN BILAT 10/22/2021 CT CHEST W/O CONTRAST 05/31/2021 NM MPI STR/RST 07/22/2021 Encounters Encounter Diagnosis Start Date Code Code Sys tem Multiple fractures of ribs, left side, initial encounter for closed fracture 11/21/2020 SNOMED-CT Personal Care Team Section Performer Name Performer Role Active Date Inactive Da te
--- OUTSIDE RECORDS SUMMARY | 2023-12-15 06:20 | XMS_ITS ---
Author Organization Unknown Address [address] [place] [address] [phone] Phone Care Team Providers Care Data Warehouse Manager Name Role Phone BRADY NORMAN NP Attending Unavailable CONI STANFORD Primary Unavailable Immunization [...] mcg/0.25mL dose 07/20/2020 Completed 207 CVX Results WO SHOULDER RIGHT 2V - Compl eted: 11/24/2020 15:50 LOINC: RIGHT SHOULDER Two views. Comparison 11/12/20. 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 The orthopedic hardware appears in good position. The bones are intact. Soft tissues are unremarkable. There is an old right 7th rib fracture. Dictated by: OLIVIA ROSENBAUM M.D. RADIOLOGIST Transcribed by: ALESIA 11/24/20/15:28 D 11/24/2020 14:29:16 [id number] Electronically Reviewed and Signed By: OBED ROSENBAUM M.D. RADIOLOGIST 11/24/20 15:50 Social History Type Status Start Date End Date Code Code Syst em Smoking History Former smoker 04/17/19987912 1217944 SNOMED CT Sex Female Medications Medication Start Date End Date Route Frequency Dose Code Code System Medication Instructions Home Meds Multivitamin Oral Tablet 06/25/2015 Unknown ORAL DAILY 1 TABLET 5765304 RxNorm TAKE 1 TABLET ORAL DAILY Acetaminophen 500MG Oral Tablet 11/15/2020 04/15/20 23 ORAL NEEDED 500 MILLIGRAMS 734914 RxNorm TAKE 500 MILLIGRAMS ORAL NEEDED Amitriptyline 25MG Oral Tablet 11/15/2020 04/15/20 23 ORAL EVERY EVENING 25 MILLIGRAMS 698530 RxNorm TAKE 25 MILLIGRAMS ORAL EVERY EVENING Azithromycin 250MG Oral Tablet 11/15/2020 04/15/20 23 ORAL DAILY 250 MILLIGRAMS 878009 RxNorm TAKE 250 MILLIGRAMS ORAL DAILY Calcium 600 MG Oral Tablet 11/15/2020 04/15/20 23 ORAL DAILY 600 MG 868790 RxNorm TAKE 600 MG ORAL DAILY Diclofenac Sodium 1% Topical application Gel/Jelly 11/15/2020 04/15/20 23 TOPICAL APPLICATI ON NEEDED TWICE DAILY 1 APPL 430203 RxNorm 1 APPL TOPICAL APPLICATIO N NEEDED TWICE DAILY Docusate Sodium 100MG Oral Capsule, Liquid Filled 11/15/2020 04/15/20 23 ORAL TWICE A DAY 100 MILLIGRAMS 7828382 RxNorm TAKE 100 MILLIGRAMS ORAL TWICE A DAY Donepezil HCl 10MG Oral Tablet 11/15/2020 Unknown ORAL DAILY 10 MILLIGRAMS 851565 RxNorm TAKE 10 MILLIGRAMS ORAL DAILY Fexofenadine HCl 180MG Oral Tablet 11/15/2020 Unknown ORAL DAILY 180 MILLIGRAMS 916341 RxNorm TAKE 180 MILLIGRAMS ORAL DAILY Fluticasone Propionate 0.05MG/Actuati on Nasal [place] 11/15/2020 04/15/20 23 NASAL TWICE A DAY 1 SPRAY 5075726 RxNorm SPRAY 1 SPRAY NASAL TWICE A DAY Ibuprofen 200MG Oral Tablet 11/15/2020 04/15/20 23 ORAL NEEDED TWICE DAILY 600 MILLIGRAMS 963849 RxNorm TAKE 600 MILLIGRAMS ORAL NEEDED TWICE DAILY Imitrex 100MG Oral Tablet 11/15/2020 04/15/20 23 ORAL NEEDED 100 MILLIGRAMS 025533 RxNorm TAKE 100 MILLIGRAMS ORAL NEEDED Ipratropium [place] rol Sulfate 0.5MG/3ML-3MG/ 3ML Inhalation Solution 11/15/2020 04/15/20 23 INHALATIO N NEEDED TWICE DAILY 1 UNIT 5507795 RxNorm 1 UNIT INHALATION NEEDED TWICE DAILY Melatonin 10 MG Oral Capsule 11/15/2020 04/15/20 23 ORAL BEDTIME 10 MG 814658 RxNorm TAKE 10 MG ORAL BEDTIME Mirtazapine 15MG Oral Tablet 11/15/2020 04/15/20 23 ORAL BEDTIME 15 MILLIGRAMS 032424 RxNorm TAKE 15 MILLIGRAMS ORAL BEDTIME Omeprazole 40MG Oral Capsule, Delayed Release 11/15/2020 Unknown ORAL DAILY 40 MILLIGRAMS 739617 RxNorm TAKE 40 MILLIGRAMS ORAL DAILY PARoxetine HCl 20MG Oral Tablet 11/15/2020 04/15/20 23 ORAL DAILY 20 MILLIGRAMS 5338714 RxNorm TAKE 20 MILLIGRAMS ORAL DAILY Senna 8.6MG Oral Tablet 11/15/2020 04/15/20 23 ORAL NEEDED AT BEDTIME 8.6 MILLIGRAMS 240363 RxNorm TAKE 8.6 MILLIGRAMS ORAL NEEDED AT BEDTIME Singulair 10MG Oral Tablet 11/15/2020 04/15/20 23 ORAL EVERY EVENING 10 MILLIGRAMS 377020 RxNorm TAKE 10 MILLIGRAMS ORAL EVERY EVENING Trelegy Ellipta NA Inhalation Powder 11/15/2020 04/15/20 23 INHALATIO N DAILY 1 PUFF 0366684 RxNorm 1 PUFF INHALATION DAILY Vitamin D 2000 IU Oral Tablet 11/15/2020 04/15/20 23 ORAL WEEKLY 2000 IU 395170 RxNorm TAKE 2000 IU ORAL WEEKLY amLODIPine Besylate 10MG Oral Tablet 11/15/2020 Unknown ORAL DAILY 10 MILLIGRAMS 425941 RxNorm TAKE 10 MILLIGRAMS ORAL DAILY busPIRone 10MG Oral Tablet 11/15/2020 Unknown ORAL THREE TIMES A DAY 20 MILLIGRAMS 277416 RxNorm TAKE 20 MILLIGRAMS ORAL THREE TIMES A DAY predniSONE 20MG Oral Tablet 11/15/2020 04/15/20 23 ORAL DAILY 3 TABLET 269315 RxNorm TAKE 3 TABLET ORAL DAILY LORazepam 0.5MG Oral Tablet 04/17/2023 Unknown ORAL EVERY 6 HOURS 1 TABLET 710254 RxNorm TAKE 1 TABLET ORAL EVERY 6 [...] 1726 0408 21AD 5641 023 Active FDA [id number] 23 07/23/2025 FLEX SHOULD ER SYSTEM [id number] Total reverse shoulder prosthesis 0103 7003 8694 4543 1725 1213 21CZ 3920 3310 36 Active FDA [id number] 45515 03/29/2025 Aequal is(TM) Ascend (TM) Flex [id number] Total reverse shoulder prosthesis 0103 7003 8694 1054 1725 1211 2191 19AV 009 Active FDA [id number] 09 03/27/2025 FLEX SHOULD ER SYSTEM [id number] Reverse shoulder prosthesis head 0100 8468 3206 1891 1726 0325 21CZ 5121 0570 10 Active FDA [id number] 80697 07/09/2025 AEQUAL IS(TM) PerFOR M Revers ed ABZ131 Reverse shoulder prosthesis base plate 0100 8468 3206 1884 1726 0611 2174 89AW 015 Active FDA [id number] W015 09/25/2025 AEQUAL IS(TM) PerFOR M Revers ed ABA134 Orthopaedi c bone screw, non-bioabs orbable, sterile 0100 8468 3206 2072 1726 0107 2132 33AW 004 Active FDA [id number] 04 04/23/2025 AEQUAL IS(TM) PerFOR M Revers ed SYA940 Problems Problem Start Date Resolved Date Status Code Code System OBSTRUCTIVE CHRONIC BRONCHITIS WITH EXACERBATION active 143704068 SNOMED-CT ACUTE AND CHRONIC RESPIRATOR Y FAILURE active 25941923 SNOMED-CT COPD active 64780725 SNOMED-CT PLEURAL EFFUSION active 53566890 SNO MED-CT HEMOPTYSIS, UNSPECIFIED 11/13/2020 resolved 65792 005 SNOMED-CT SEPTICEMIA NOS 11/13/2020 resolved SNOM ED-CT OTHER AND UNSPECIFIED HYPERLIPIDEMIA 11/13/2020 resolved 76281397 SNOMED-CT LUMBAGO 11/13/2020 resolved 961072999 SNOMED-CT TRANSIENT ALTERED MENTAL STATUS 11/13/2020 resolved 777192724 SNOMED-CT CANDIDIASIS OF MOUTH 11/13/2020 resolved 46375416 SNOMED-CT CLOSED FRACTURE OF ONE RIB 11/13/2020 resolved 45 447980 SNOMED-CT PNEUMONIA 11/13/2020 resolved SNOMED-CT HYPOSMOLALITY AND/OR HYPONATREMIA 11/13/2020 resolved 101839180 SNOMED-CT Allergies and Adverse Reactions Allergy Substance Reaction Severity Start Date Concern Status Code Code System TRAZODONE Hallucinations (SNOMED-CT: 6780344) Moderate Active 04563 RxNorm LISINOPRIL Cough (SNOMED-CT: 48153313) Active 83857 RxNorm FOSAMAX Moderate Active 713579 RxNorm Plan of Treatment Pre-Op Testing 11/06/2020 Pre-Op Covid-19 Testing 03/21/2020 BONE DENSITY DEXA SPINE & HIP 3 PRE-OP COVID-19 TESTING 01/10/2022 MM SCREEN BILAT 10/22/2021 CT CHEST W/O CONTRAST 05/31/2021 NM MPI STR/RST 07/22/2021 Encounters Encounter Diagnosis Start Date Code Code Sys tem Aftercare 11/24/2020 971561074 SNOMED-CT Personal Care Team Section Performer Name Performer Role Active Date Inactive Da te
--- OUTSIDE RECORDS SUMMARY | 2023-12-15 06:20 | XMS_ITS ---
Author Organization Unknown Address [address] [place] [address] [phone] Phone Care Team Providers Care Net Web Application Developer Name Role Phone FRANK Mujica MD Attending [...] Code Syst em Smoking History Former smoker 04/17/19980787 8649592 SNOMED CT Sex Female Medications Medication Start Date End Date Route Frequency Dose Code Code System Medication Instructions Home Meds Multivitamin Oral Tablet 06/25/2015 Unknown ORAL DAILY 1 TABLET 3291132 RxNorm TAKE 1 TABLET ORAL DAILY Acetaminophen 500MG Oral Tablet 11/15/2020 04/15/20 23 ORAL NEEDED 500 MILLIGRAMS 382037 RxNorm TAKE 500 MILLIGRAMS ORAL NEEDED Amitriptyline 25MG Oral Tablet 11/15/2020 04/15/20 23 ORAL EVERY EVENING 25 MILLIGRAMS 194455 RxNorm TAKE 25 MILLIGRAMS ORAL EVERY EVENING Azithromycin 250MG Oral Tablet 11/15/2020 04/15/20 23 ORAL DAILY 250 MILLIGRAMS 400397 RxNorm TAKE 250 MILLIGRAMS ORAL DAILY Calcium 600 MG Oral Tablet 11/15/2020 04/15/20 23 ORAL DAILY 600 MG 610701 RxNorm TAKE 600 MG ORAL DAILY Diclofenac Sodium 1% Topical application Gel/Jelly 11/15/2020 04/15/20 23 TOPICAL APPLICATI ON NEEDED TWICE DAILY 1 APPL 018265 RxNorm 1 APPL TOPICAL APPLICATIO N NEEDED TWICE DAILY Docusate Sodium 100MG Oral Capsule, Liquid Filled 11/15/2020 04/15/20 23 ORAL TWICE A DAY 100 MILLIGRAMS 6528093 RxNorm TAKE 100 MILLIGRAMS ORAL TWICE A DAY Donepezil HCl 10MG Oral Tablet 11/15/2020 Unknown ORAL DAILY 10 MILLIGRAMS 249983 RxNorm TAKE 10 MILLIGRAMS ORAL DAILY Fexofenadine HCl 180MG Oral Tablet 11/15/2020 Unknown ORAL DAILY 180 MILLIGRAMS 715261 RxNorm TAKE 180 MILLIGRAMS ORAL DAILY Fluticasone Propionate 0.05MG/Actuati on Nasal [place] 11/15/2020 04/15/20 23 NASAL TWICE A DAY 1 SPRAY 4843807 RxNorm SPRAY 1 SPRAY NASAL TWICE A DAY Ibuprofen 200MG Oral Tablet 11/15/2020 04/15/20 23 ORAL NEEDED TWICE DAILY 600 MILLIGRAMS 439428 RxNorm TAKE 600 MILLIGRAMS ORAL NEEDED TWICE DAILY Imitrex 100MG Oral Tablet 11/15/2020 04/15/20 23 ORAL NEEDED 100 MILLIGRAMS 632431 RxNorm TAKE 100 MILLIGRAMS ORAL NEEDED Ipratropium [place] rol Sulfate 0.5MG/3ML-3MG/ 3ML Inhalation Solution 11/15/2020 04/15/20 23 INHALATIO N NEEDED TWICE DAILY 1 UNIT 7870417 RxNorm 1 UNIT INHALATION NEEDED TWICE DAILY Melatonin 10 MG Oral Capsule 11/15/2020 04/15/20 23 ORAL BEDTIME 10 MG 593564 RxNorm TAKE 10 MG ORAL BEDTIME Mirtazapine 15MG Oral Tablet 11/15/2020 04/15/20 23 ORAL BEDTIME 15 MILLIGRAMS 494477 RxNorm TAKE 15 MILLIGRAMS ORAL BEDTIME Omeprazole 40MG Oral Capsule, Delayed Release 11/15/2020 Unknown ORAL DAILY 40 MILLIGRAMS 322972 RxNorm TAKE 40 MILLIGRAMS ORAL DAILY PARoxetine HCl 20MG Oral Tablet 11/15/2020 04/15/20 23 ORAL DAILY 20 MILLIGRAMS 8643821 RxNorm TAKE 20 MILLIGRAMS ORAL DAILY Senna 8.6MG Oral Tablet 11/15/2020 04/15/20 23 ORAL NEEDED AT BEDTIME 8.6 MILLIGRAMS 273500 RxNorm TAKE 8.6 MILLIGRAMS ORAL NEEDED AT BEDTIME Singulair 10MG Oral Tablet 11/15/2020 04/15/20 23 ORAL EVERY EVENING 10 MILLIGRAMS 744946 RxNorm TAKE 10 MILLIGRAMS ORAL EVERY EVENING Trelegy Ellipta NA Inhalation Powder 11/15/2020 04/15/20 23 INHALATIO N DAILY 1 PUFF 5136165 RxNorm 1 PUFF INHALATION DAILY Vitamin D 2000 IU Oral Tablet 11/15/2020 04/15/20 23 ORAL WEEKLY 2000 IU 655741 RxNorm TAKE 2000 IU ORAL WEEKLY amLODIPine Besylate 10MG Oral Tablet 11/15/2020 Unknown ORAL DAILY 10 MILLIGRAMS 254655 RxNorm TAKE 10 MILLIGRAMS ORAL DAILY busPIRone 10MG Oral Tablet 11/15/2020 Unknown ORAL THREE TIMES A DAY 20 MILLIGRAMS 532646 RxNorm TAKE 20 MILLIGRAMS ORAL THREE TIMES A DAY predniSONE 20MG Oral Tablet 11/15/2020 04/15/20 23 ORAL DAILY 3 TABLET 972394 RxNorm TAKE 3 TABLET ORAL DAILY LORazepam 0.5MG Oral Tablet 04/17/2023 Unknown ORAL EVERY 6 HOURS 1 TABLET 601149 RxNorm TAKE 1 TABLET ORAL EVERY 6 [...] 1726 0408 21AD 5641 023 Active FDA [id number] 23 07/23/2025 FLEX SHOULD ER SYSTEM [id number] Total reverse shoulder prosthesis 010 7003 8694 4543 1725 1213 21CZ 3920 3310 36 Active FDA [id number] 00375 03/29/2025 Aequal is(TM) Ascend (TM) Flex [id number] Total reverse shoulder prosthesis 0103 7003 8694 1054 1725 1211 2191 19AV 009 Active FDA [id number] 09 03/27/2025 FLEX SHOULD ER SYSTEM [id number] Reverse shoulder prosthesis head 0100 8468 3206 1891 1726 0325 21CZ 5121 0570 10 Active FDA [id number] 34654 07/09/2025 AEQUAL IS(TM) PerFOR M Revers ed QAP178 Reverse shoulder prosthesis base plate 0100 8468 3206 1884 1726 0611 2174 89AW 015 Active FDA [id number] W015 09/25/2025 AEQUAL IS(TM) PerFOR M Revers ed [id number] Orthopaedi c bone screw, non-bioabs orbable, sterile 0100 8468 3206 2072 1726 0107 2132 33AW 004 Active FDA [id number] 04 04/23/2025 AEQUAL IS(TM) PerFOR M Revers ed RUC796 Problems Problem Start Date Resolved Date Status Code Code System OBSTRUCTIVE CHRONIC BRONCHITIS WITH EXACERBATION active 521242955 SNOMED-CT ACUTE AND CHRONIC RESPIRATOR Y FAILURE active 65164970 SNOMED-CT COPD active 75287392 SNOMED-CT PLEURAL EFFUSION active 02351706 SNO MED-CT HEMOPTYSIS, UNSPECIFIED 11/13/2020 resolved 71356 005 SNOMED-CT SEPTICEMIA NOS 11/13/2020 resolved SNOM ED-CT OTHER AND UNSPECIFIED HYPERLIPIDEMIA 11/13/2020 resolved 72528751 SNOMED-CT LUMBAGO 11/13/2020 resolved 754307140 SNOMED-CT TRANSIENT ALTERED MENTAL STATUS 11/13/2020 resolved 007680335 SNOMED-CT CANDIDIASIS OF MOUTH 11/13/2020 resolved 99369459 SNOMED-CT CLOSED FRACTURE OF ONE RIB 11/13/2020 resolved 45 053112 SNOMED-CT PNEUMONIA 11/13/2020 resolved SNOMED-CT HYPOSMOLALITY AND/OR HYPONATREMIA 11/13/2020 resolved 276825917 SNOMED-CT Allergies and Adverse Reactions Allergy Substance Reaction Severity Start Date Concern Status Code Code System TRAZODONE Hallucinations (SNOMED-CT: 9311945) Moderate Active 66994 RxNorm LISINOPRIL Cough (SNOMED-CT: 28864380) Active 19547 RxNorm FOSAMAX Moderate Active 944426 RxNorm Plan of Treatment Pre-Op Testing 11/06/2020 Pre-Op Covid-19 Testing 03/21/2020 BONE DENSITY DEXA SPINE & HIP 3 PRE-OP COVID-19 TESTING 01/10/2022 MM SCREEN BILAT 10/22/2021 CT CHEST W/O CONTRAST 05/31/2021 NM MPI STR/RST 07/22/2021 Encounters Encounter Diagnosis Start Date Code Code Sys tem Aftercare 01/04/2021 823965002 SNOMED-CT Personal Care Team Section Performer Name Performer Role Active Date Inactive Da te
[2023-12-15 06:25] VITALS: BP 117/94; PULSE 64; RESP 20; TEMP 36.6; O2SAT 95
[2023-12-15] MEDS: Tropicam./Phenyleph. (1/2.5%) 5 ML BTL ×3 (06:31→06:49)
--- NOTE | 2023-12-15 07:03 | W.ANESPRE ---
General Info Date of Service Date Performed: 12/15/23 Height: 4 ft 11.06 in Weight: 73 kg Body Mass Index (BMI): 32.4 Surgical Procedure: Operation Date: 12/15/23 07:40 Proposed Procedure Side Surgeon p Cataract Extraction with IOL Implant Right Terrell Springer MD Meds Allergies and Home Medications Allergies Allergy/AdvReac Type Severity Reaction Status Date / Time trazodone Allergy Severe nightmares Verified 12/13/23 11:36 alendronate sodium (From Allergy Intermediate extreme Verified 12/13/23 11:36 Fosamax) joint pain lisinopril Allergy Intermediate cough Verified 12/13/23 11:36 Home Medication ?Medication ?Instructions ?Recorded Oxygen #1 ea 05/07/21 amlodipine 10 mg tablet 10 mg PO DAILY 05/07/21 azithromycin 250 mg tablet 250 mg PO DAILY 05/07/21 calcium carbonate (Calcium 600) 600 mg PO DAILY 05/07/21 donepezil 10 mg tablet (Aricept) 10 mg PO DAILY 05/07/21 ergocalciferol (vitamin D2) 50 mcg 50 mcg PO .week 05/07/21 (2,000 unit) capsule fexofenadine 180 mg tablet 180 mg PO DAILY 05/07/21 fluticasone propionate 50 1 spray intranasal BID 05/07/21 mcg/actuation nasal spray,suspension furosemide 20 mg tablet 20 mg PO DAILY 05/07/21 meloxicam 15 mg tablet 15 mg PO DAILY 05/07/21 montelukast 10 mg tablet 10 mg PO DAILY 05/07/21 multivitamin 1 tab PO DAILY 05/07/21 nebulizers #1 ea 05/07/21 omeprazole 40 mg capsule,delayed 40 mg PO DAILY 05/07/21 release sumatriptan succinate 100 mg tablet 100 mg PO ONCE 05/07/21 budesonide 160 mcg-glycopyr 9 2 inh inhalation BID #10.7 grams 02/09/22 mcg-formot 4.8 mcg/actuation HFA inhaler (Breztri Aerosphere) ipratropium 0.5 mg-albuterol 3 mg 3 ml inhalation QID PRN PRN 11/15/22 (2.5 mg base)/3 mL nebulization shortness of breath or wheezing soln #540 mL levalbuterol tartrate 45 2 inh inhalation Q6H #15 grams 11/15/22 mcg/actuation aerosol inhaler (Xopenex HFA) acetylcysteine 600 mg capsule 600 mg PO BID 12/04/23 albuterol sulfate 90 mcg/actuation 2 puff inhalation DIRECTED 12/04/23 aerosol inhaler (Proventil HFA) shortness of breath or wheezing buspirone 30 mg tablet 30 mg PO TID 12/04/23 diphenhydramine HCl 50 mg tablet 50 mg PO DIRECTED 12/04/23 (Benadryl Allergy) empagliflozin 25 mg tablet 25 mg PO DAILY 12/04/23 (Jardiance) gabapentin 100 mg capsule 100 mg PO TID 12/04/23 mirtazapine 15 mg tablet 15 mg PO QHS 12/04/23 sertraline 100 mg tablet 100 mg PO DAILY 12/04/23 sertraline 50 mg tablet 50 mg PO DIRECTED 12/04/23 triamcinolone acetonide 0.1 % 1 applic topical BID 12/04/23 topical cream PFSH Active Problems Active Problems: Problem Status Onset Code Nuclear age-related cataract, right eye Acute H25.11 Nuclear age-related cataract, left eye Resolved H25.12 Respiratory failure with hypoxia Acute J96.91 Chronic obstructive pulmonary disease Chronic J44.9 Obesity hypoventilation syndrome Acute E66.2 Normocytic anemia Acute D64.9 Gall stones Acute K80.20 Degenerative disc disease Acute Chronic pain syndrome Chronic G89.4 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 Perennial allergic rhinitis Acute J30.89 Hyperlipidemia Acute E78.5 GERD (gastroesophageal reflux disease) Chronic K21.9 Paresthesia of lower extremity Acute R20.2 Flat feet Acute M21.41, M21.42 Bunion of right foot Acute M21.611 Rotator cuff syndrome Acute M75.100 Arthritis Acute M19.90 Avascular necrosis of head of humerus Acute M87.029 Renal insufficiency Chronic N28.9 Polypharmacy Acute Z79.899 Essential hypertension Acute I10 Prediabetes Acute R73.03 Mild cognitive impairment Acute G31.84 Osteoporosis Chronic M81.0 Urinary incontinence Acute R32 Sore throat Acute J02.9 IBS (irritable bowel syndrome) Chronic K58.9 Degenerative joint disease of hand Acute M19.049 DJD of both shoulders Acute M19.011, M19.012 Knee pain Acute M25.569 Leg cramps Acute R25.2 Obesity Chronic E66.9 Weight gain Acute R63.5 Insomnia Acute G47.00 Depression with anxiety Acute F41.8 Former cigarette smoker Acute Z87.891 Edema, peripheral Acute R60.9 Dyspnea Acute R06.00 Anemia Chronic D64.9 Medical History Medical History Malignant hyperthermia FH malignant hyperthermia per PCP H&P-pt. is not sure which family member Chronic kidney disease, stage 3 Urge incontinence Migraine Psychophysiologic insomnia Alcohol dependence Substance abuse Hepatitis C Pneumonia Medical History Comments:: Unknown MH hx Surgical History Surgical History History of cataract surgery Hx of fracture of clavicle ORIF w/pin [place] teeth extracted History of lung surgery lung decortication procedure History of tonsillectomy and adenoidectomy History of thumb surgery bilat Tobacco Smoking/Tobacco Use Status: Former Tobacco Use Alcohol Alcohol Intake: current Alcohol intake frequency: 0-2 drinks per day Alcohol type: hard liquor Substance Use Substance use: Occasionally Substance use type: marijuana Details: 12/14/23: edible, gummies Vital Signs and Lab Results Vital Signs Most Recent Vital Signs in EMR: Most Recent Vital Signs Temp Pulse Resp BP Pulse Ox 36.6 C 64 20 117/94 H 95 12/15/23 06:25 12/15/23 06:25 12/15/23 06:25 12/15/23 06:25 12/15/23 06:25 Lab Results Blood Type / Crossmatch: No Data to Display Complete Blood Count: No Data to Display Complete Metabolic Panel: No Data to Display Liver Function Panel: No Data to Display Coagulation Panel: No Data to Display Cardiac Panel: No Data to Display Arterial Blood Gas: No Data to Display Venous Blood Gas: No Data to Display Pancreas Panel: No Data to Display Thyroid Panel: No Data to Display Infectious Disease: No Data to Display Blood Cultures: No Data to Display Toxicology Panel: No Data to Display Imaging and Studies Imaging and Studies Study information below may be from another EMR and interpreted by another provider. Please see original notes in EMR for more complete details. Echocardiogram Summary: Patient Name: Kyleigh Caballero Unit #: [id number] Loc: DI Ordering Provider: Irlanda Bennett M.D. Status: REG I Primary Care Provider: Nayana Newberry Date of Exam: 11/24/21 Sex: F Admission Date: 11/24/21 : 1950 Age: 71 APPROVED REPORT EXAM: Comprehensive 2D, Doppler, and color-flow Echocardiogram Patient Location: Out-Patient Gluer And Wedger: Kayli Buck RDCS (AE) Indications: Dyspnea, Hypoxia, r/o Shunt Echo Enhancing Agent Indication: Rule out Shunt Agent(s) / Amount(s) Used: Agitated Saline 30.0 cc Comments: Contrast study was performed with 3 IV injections of 10ccs of agitated normal saline, at rest, with cough and post valsalva maneuver. Negative contrast study for shunt flow. Other Information Study Quality: Adequate Conclusion Normal left ventricular wall thickness and chamber size. Estimated ejection fraction is 60 to 65%. Wall motion is normal Normal right ventricular size and systolic function Both atria are normal in size No intracardiac shunt is identified with administration of agitated saline Aortic valve is trileaflet with mild regurgitation Mild to moderate mitral annular calcification. Trace mitral regurgitation Normal tricuspid valve with trace regurgitation. Estimated right ventricular systolic pressure is 25 mmHg Wall motion Left Ventricle The left ventricle is normal size. The left ventricular systolic function is normal. The left ventricular ejection fraction is within the normal range. There is normal left ventricular wall thickness. There is normal LV segmental wall motion. There is no ventricular septal defect visualized. LVEF is 60-65%. Right Ventricle The right ventricle is normal size. The right ventricular systolic function is normal. The RVSP is 25.3 mmHg. Atria The left atrium size is normal. The right atrium size is normal. The interatrial septum is intact with no evidence for an atrial septal defect. Saline bubble contrast intravenous injection does not demonstrate PFO. Aortic Valve The aortic valve is normal in structure. Aortic valve is trileaflet. There is no aortic valvular stenosis. mild aortic regurgitation. Mitral Valve Mild to moderate mitral annular calcification. No evidence of mitral valve stenosis. Trace mitral regurgitation. Tricuspid Valve The tricuspid valve is normal in structure. There is no tricuspid valve stenosis. Trace tricuspid regurgitation. Pulmonic Valve The pulmonary valve is normal in structure. There is no pulmonic valvular stenosis. Trace pulmonic regurgitation. Great Vessels The aortic root is normal in size. The ascending aorta is normal in size. Aortic arch is normal in caliber. IVC is normal in size and collapses >50% with inspiration. Pericardium There is no pericardial effusion. 2D Dimensions IVSD d PLAX 0.89 cm F: 0.6-1.0LV Vol A2C d MOD 88.1 mL LVPW d PLAX 0.86 cm F: 0.6 - 1.0LV Vol A4C d MOD 97.8 mL LVID d PLAX 4.01 cm F: 3.8 - 5.2LA vol/ BSA A2C s A-L22.9 mL/m2 LVDs 2.70 cm F: 2.2 - 3.5LA vol/ BSA A4C s A-L25.1 mL/m2 Ao Root d 2.64 cm F: 2.7 - 3.3LA Vol/ BSA Biplane s A-L 25.5 mL/m2 RA Area A4C11.63 cm2LA Area A4C s MOD 17.79 cm2 RA Vol/ BSA A4C s A-L 12.6 mL/m2LA Area A2C s MOD 16.02 cm2 Ao Asc Diam d 3.14 cm F: 2.3 - 3.1LV EF A4C MOD 65.5 % LV EF Teichholz 61.5 %LV EF A2C MOD 60.4 % LVEF (Palencia's)62.69 % F: 54 - 74LV EF Biplane MOD 62.7 % LV Nvkxbp37.09 mL F: 46 - 788KN43.26 mL LV Volume Index39.82 mL/m2 F: 29 - 61SV Index32.12 mL/m2 LV Vol Biplane MOD 92.9 mL FS32.55 % M-Mode TAPSE 1.96 cm (M/F) >1.7 LV Diastology MV E' medial0.067 (>0.07 m/s)E/A Ratio 0.7 LV E/e MED8.15 (<14)MV E Vmax 0.55 (0.4-1.3 m/s) MV E' lateral0.090 (>0.1 m/s)MV A Vmax 0.80 (0.4-1.3 m/s) LV E/e LAT6.10 (<14)MV E/A Ratio 0.64 MV E/E' medial 8.20 MV E/E' lateral6.11 Aortic Valve LVOT Area3.03 cm2AoV Area Vmax2.46 cm2 LVOT Vmax 1.26 m/sAoV Area/ BSA (Vmax)1.36 cm2/m2 LVOT Mean Abdelrahman.0.77 m/sAVA Mean Abdelrahman.2.18 cm2 LVOT Peak Grad 6.3 mmHgAVA Mean Abdelrahman. Index1.20 cm2/m2 LVOT Mean Grad 2.9 mmHg LVOT VTI0.252 m LVOT Diam s 1.95 cm AoV Vmax1.55 m/s Velocity Ratio 0.81 AoV Mean Abdelrahman.1.07 m/s AoV Peak Grad9.6 mmHg LVOT SV 76.19 mL AoV Mean Grad5.2 mmHg AoV VTI0.283 m AoV Area VTI2.69 cm2 AoV Area/ BSA (VTI)1.48 cm/m2 Mitral Valve MV DT 289 (160-240 msec) MV PHT84 msec MV Area PHT 2.63 cm2 MV VTI 0.305 m MV Area VTI 2.50 (4.0-6.0 cm2) Pulmonary Valve PV Vmax 1.04 (0.5-1.5 m/s)RVOT Peak Gr.2.23 mmHg PV Peak Grad 4.3 mmHgRVOT Mean Gr.1.00 mmHg PV Mean Grad 2.1 mmHgRVOT VTI0.114 m PV VTI 0.168 mRVOT Vmax 0.75 m/s Tricuspid Valve TR Peak Grad 22.3 mmHgTR Vmax 2.36 m/s RA Pressure 3.00 mmHg RVSP (TR) 25.3 mmHg Ordered By: Irlanda Bennett M.D. CC: Dictated By: Meka García M.D. 11/24/21 1154 <Electronically signed by Meka García M.D. in OV> 11/25/21 0815 Transcribed By: Meka García MD This is privileged, confidential information intended only for the provider named. Any use or distribution by any person other than this provider is strictly prohibited. If you receive this report in error, please notify us immediately at [phone] and return the original report to us at the address above. Thank-you. Pulmonary Function Summary: Pulmonary Function Test PATIENT NAME: Kyleigh Caballero UNIT #: [id number] ADMITTING PROVIDER: Irlanda Bennett M.D. PRIMARY CARE PROVIDER: NAYANA NEWBERRY MD DATE OF ADMIT: 10/15/21 : 1950 Date of service: 10/15/21 Time of Service: 13:13 Pulmonary Function Test Result Requesting Provider Donald Indications: Emphysema Interpretation Spirometry: There is moderate airflow limitaiton. Ther eis no significant bronchodilator response. Lung Volumes: Lung volumes are normal Diffusion Capacity: Reduced diffusion Airway Pressure: Normal airways resistance Impression Moderate airflow limitation and a reduced diffusion. 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 Note: When compared to 04/04/19,the FEEV1 and FVC have decreased. Clinical Correlation therefore is recommended. cc: Dictated by: IRLANDA BENNETT MD Dictated: 10/20/21 Time: 1746 <Electronically signed by Irlanda Bennett M.D.> Date: 10/20/211805 Date: Date: Transcribed Date: 10/20/21 Transcribed Time: 1746 By: ESTELA This is privileged, confidential information, intended only for the provider named. Any use or distribution by any person other than this provider is strictly prohibited. If you receive this report in error, please notify us immediately at [phone] and return the original report to us at the address above. Thank you. Anesthesia Assessment and Plan Anesthesia History Personal History: No History of Anesthesia Complications and PONV Family History: Malignant Hyperthermia Exercise Tolerance Exercise Tolerance: Metabolic Equivalents>4 Pertinent Negatives Pertinent Negatives: No Symptoms of GERD Cardiac & Pulmonary Exam Cardiac Exam: Normal S1/S2 Heart Sounds Pulmonary Exam: Clear Bilateral Breath Sounds Implantable Cardiac Device Does patient have a Pacemaker or an ICD?: No Airway Exam Known Difficult Airway: No Mallampati Class: 2 Mouth Opening: Normal (> 3cm) Thyromental Distance: Greater than 3 cm Neck Range of Motion: Full ROM Neck Circumference: Normal Teeth Condition: Normal Dentition and Removable Dentures/Plates Upper ASA Classification ASA Score: ASA 2 Emergency Case?: No NPO Status NPO Status: NPO Clears >2 hours, Solids >8 hours Anesthesia Plan Resuscitation Status: Full Code Anesthesia Technique: MAC Anesthesia Airway Planned: Natural Airway Monitors Used: Standard Monitors
[2023-12-15 07:04] VITALS: BMI 32.4
[2023-12-15] MEDS: Prednisolone 1%, Moxifloxacin 0.5%, Bromfenac 0.09% 5.6ML BTL 5.6 ML (07:36)
[2023-12-15] MEDS: Tetracaine 0.5% 4 ML BTL (07:37)
[2023-12-15] MEDS: Lidocaine 1% Pres-Free 5 ML VIAL (07:38)
[2023-12-15] MEDS: Duovisc Viscoelastic System EACH 1 EACH (07:40)
[2023-12-15] MEDS: Povidone-Iodine Ophth 30 ML BTL (07:41)
[2023-12-15] MEDS: Balanced Salt Soln.-PLUS 500 ML BAG OP (07:45)
--- NOTE | 2023-12-15 07:56 | W.PM.DSUDISC ---
Date of service: 12/15/23 Time of Service: 07:56 Discharge Plan Disposition Patient Disposition: Home Discharge Details Attending Provider: Terrell Springer Primary Care Provider: Nayana Blankenship Home Meds and New Rx's Prescriptions: No Action ipratropium-albuterol 0.5 mg-3 mg(2.5 mg base)/3 mL solution for nebulization 3 ml inhalation QID PRN PRN (Reason: shortness of breath or wheezing) Qty: 540 8RF levalbuterol tartrate [Xopenex HFA] 45 mcg/actuation HFA aerosol inhaler 2 inh inhalation Q6H Qty: 15 6RF Breztri Aerosphere 160-9-4.8 mcg/actuation HFA aerosol inhaler 2 inh inhalation BID Qty: 10.7 12RF (DME) nebulizers Misc See Rx Instructions .ROUTE .MEDSUPPLY Qty: 1 Rx Instructions: As directed (DME) Oxygen Tank See Rx Instructions .ROUTE .MEDSUPPLY Qty: 1 Rx Instructions: As directed, nocturnal O2 2LPM calcium carbonate [Calcium 600] 600 mg calcium (1,500 mg) tablet 600 mg PO DAILY fexofenadine 180 mg tablet 180 mg PO DAILY sumatriptan succinate 100 mg tablet 100 mg PO ONCE azithromycin 250 mg tablet 250 mg PO DAILY Rx Instructions: start on day 2 of therapy meloxicam 15 mg tablet 15 mg PO DAILY ergocalciferol (vitamin D2) 50 mcg (2,000 unit) capsule 50 mcg PO .week donepezil [Aricept] 10 mg tablet 10 mg PO DAILY omeprazole 40 mg capsule,delayed release(DR/EC) 40 mg PO DAILY multivitamin Tablet 1 tab PO DAILY montelukast 10 mg tablet 10 mg PO DAILY Patient Comments: 12/15/23 pt reports she no longer takes this med. FS RN fluticasone propionate 50 mcg/actuation spray,suspension 1 spray intranasal BID Rx Instructions: administer into each nostril amlodipine 10 mg tablet 10 mg PO DAILY furosemide 20 mg tablet 20 mg PO DAILY Benadryl Allergy 50 mg tablet 50 mg PO DIRECTED gabapentin 100 mg capsule 100 mg PO TID mirtazapine 15 mg tablet 15 mg PO QHS Jardiance 25 mg tablet 25 mg PO DAILY sertraline 100 mg tablet 100 mg PO DAILY sertraline 50 mg tablet 50 mg PO DIRECTED triamcinolone acetonide 0.1 % cream 1 applic topical BID buspirone 30 mg tablet 30 mg PO TID acetylcysteine 600 mg capsule 600 mg PO BID albuterol sulfate [Proventil HFA] 90 mcg/actuation HFA aerosol inhaler 2 puff inhalation DIRECTED Discharge Instructions Stand Alone Forms: DSU Post-Op Cataract, Neris Vasquez (DSU) Discharge Orders Discharge Orders: Discharge Order (Routine); Ordered 12/15/23 Ordered By: Terrell Springer DS: Diagnosis Discharge Diagnosis (1) Nuclear age-related cataract, right eye: Status: Resolved
--- NOTE | 2023-12-15 07:57 | ROE_ITS ---
Date of service: 12/15/23 Time of Service: 07:57 Operative Note Operative Note DATE OF PROCEDURE: 12/15/23 PRE-OP DIAGNOSIS: Nuclear cataract, right eye POST-OP DIAGNOSIS: same PROCEDURE: Cataract extraction using phacoemulsification with intraocular lens implant, right eye SURGEON: Terrell Springer ANESTHESIA TYPE: Local By Surgeon and MAC Refer to Anesthesia Record ESTIMATED BLOOD LOSS: 0 PATHOLOGY: none sent COMPLICATIONS: None Patient was transported to: same day Patient's condition: stable Implants: Shahab Clareon [id number] Indications: Progressive decreased vision due to cataract, right eye Procedure Description: CATARACT SURGERY OPERATIVE REPORT PREOPERATIVE DIAGNOSIS: Nuclear cataract, right eye POSTOPERATIVE DIAGNOSIS: Same OPERATION: Cataract extraction using phacoemulsification with posterior chamber intraocular lens implant, right eye. IOL: IOL Electrical Accessories Ii Assembler/Model: Shahab Clareon [id number] IOL Power: + 16.0 diopters IOL Serial Number: [id number] Optic Diameter: 6.0mm Haptic/Overall Diameter: 13.0mm PHACO INFO: Shahab Sphere [employer]urion Vision System with OZil and Active Fluidics Cumulative Dispersed Energy (CDE): 9.20 seconds SURGEON: Terrell Springer MD, DISHA ANESTHESIA: Monitored Anesthesia Care (MAC), with local sub-tenon's anesthetic infiltration COMPLICATIONS: None SPECIMENS: None INDICATIONS FOR PROCEDURE: The patient is a 73-year-old lady with history of diminished visual acuity in both eyes secondary to the development of bilateral nuclear cataract. She has already undergone cataract surgery in the left eye and is doing well postoperatively. She now presents for cataract surgery on right eye. See office notes for detailed information. PROCEDURE: The correct surgical eye was identified and marked as the right eye and the pupil was dilated in the preoperative area using mydriatics and cycloplegics. The dilated pupil size was 8.0 mm. The patient elected to proceed without oral sedation. The patient was brought to the operating room where cardiopulmonary monitoring was instituted and surgical time-out was performed, confirming the correct operative eye and IOL power. Topical anesthesia was administered and ophthalmic povidone-iodine 5% was instilled into the conjunctival fornices. The margie-ocular area was prepped with Betadine 10% solution and draped in the usual sterile fashion for intraocular surgery, including an aperture drape. A Tegaderm transparent film dressing was cut in half and used to cover the lashes and lid margins. Care was taken to sequester the lashes and lid margins under the Tegaderm dressing. A lid speculum was placed between the lids of the operative eye and the Shahab Lux[employer] Revalia operating microscope was maneuvered into position. Newton scissors were then used to make a conjunctival buttonhole approximately 6mm posterior to the limbus in the inferonasal quadrant. Blunt dissection was carried out to expose bare sclera, and a blunt-tipped sub-tenon?s anesthesia cannula was introduced and passed posteriorly along the globe where non- preserved plain lidocaine was injected into posterior sub-Tenon?s space. A sideport knife was used to make a paracentesis port. Intraocular phenylephrine/lidocaine was injected into the anterior chamber. The anterior chamber was then filled with viscoelastic. A keratome knife was used to construct a two--plane clear corneal tunnel extending 2.0mm into clear cornea. A flap was raised on the anterior capsule and capsulorhexis forceps were used to complete a continuous curvilinear capsulorhexis of 5.0 mm. Balanced salt solution was then used to perform cortical cleaving hydrodissection and nuclear hydrodelineation until the lens could be freely rotated within the capsular bag. The lens nucleus was then disassembled and removed within the capsular bag and iris plane using phacoemulsification. Residual cortical material was removed using the I/A handpiece. The posterior capsule was carefully polished to remove as much residual lens epithelial cells as safely possible. The capsular bag was then inflated and the anterior chamber deepened with cohesive viscoelastic. The lens implant described above was inserted into the capsular bag using the Shahab Autonome Injector. A Kuglen hook was used to dial the IOL into position. Residual viscoelastic was then removed first from posterior to the IOL, then from the anterior chamber using the I/A handpiece. The lens implant was noted to center nicely within the capsular bag. The incisions were stromally hydrated, and the anterior chamber was reformed using BSS. Then 0.5cc of moxifloxacin 1.0mg/ml were injected into the capsular bag and anterior chamber. The incisions were checked with a Weck spear and found to be secure. Several drops of ophthalmic povidone-iodine 5% were then applied to the eye followed by two drops of combination steroid/NSAID/antibiotic solution. The drapes were removed and a clear plastic protective eye shield was placed over the eye. The patient was then returned to Same Day Surgery in stable condition.
[2023-12-15 08:01] VITALS: BP 139/76; PULSE 62; RESP 16; TEMP 36.2; O2SAT 94
--- NOTE | 2023-12-15 08:04 | W.ANESPOSTOP ---
Postoperative Evaluation Date, Time and Location Date Performed: 12/15/23 Time Performed: 08:04 Patient Location: Day Surgery Unit Vital Signs Most Recent Imported Vital Signs: Most Recent Vital Signs Temp Pulse Resp BP Pulse Ox 36.2 C L 62 16 139/76 94 12/15/23 08:01 12/15/23 08:01 12/15/23 08:01 12/15/23 08:01 12/15/23 08:01 Pain Score Most Recent Pain Score: Most Recent Pain Score Pain Level 0 12/15/23 08:01 Assessment Mental Status: Awake (Alert & Oriented to Patient Baseline) Airway and Respiratory Function: Patent airway with normal (patient baseline) respiratory exam Cardiovascular Function: Hemodynamically Stable Hydration Status: Adequately Hydrated Nausea & Vomiting: No Nausea or Vomiting Pain: Pt. Denies Any Pain Peripheral Nerve Block: Patient did not receive a nerve block
== END 2023-12-15 08:15 | disposition home or self-care (01) ==
LOC: SUR 06:11
PROVIDERS: PCP Family Medicine; Visit Provider Ophthalmology
PROC: (CPT 66984; principal; 2023-12-15 07:30)
DX: H25.11 Age-related nuclear cataract, right eye (principal); Z98.42 Cataract extraction status, left eye
CPT/HCPCS: 66984; 00123; V2632; J2003

== ENCOUNTER 2024-09-02 18:20 | Outpatient (REF) | payer MEDICARE, MEDICAID, SELFPAY ==
[2024-09-02 22:01] LABS: HCT 45.1 % (36.0-46.0); HGB 14.4 g/dL (11.2-15.7); MCH 29.4 pg (27.0-33.0); MCHC 31.9 % (32.0-36.0); MCV 92 fL (80-95); MPV 9.9 fL (8.0-11.0); Platelet Count 256 10^3/uL (130-400); RDW 13.4 % (11.7-14.6); RDW-SD 45.8 fL; WBC 8.24 10^3/uL (4.4-10.8)
[2024-09-02 22:35] LABS: ALT 13 U/L (14-59); AST 26 U/L (15-37); Albumin 4.7 g/dL (3.4-5.0); Alkaline Phosphatase 88 U/L (46-116); Anion Gap 9.1 mmol/L (3-11); BUN 21 mg/dL (7-18); Bilirubin, Total 0.5 mg/dL (0.2-1.0); CO2 26.9 mmol/L (21.0-32.0); CREATININE 1.1 mg/dL (0.55-1.02); Calcium 9.7 mg/dL (8.5-10.1); Chloride 103 mmol/L (98-107); Estimated GFR 53.06 (mL/min/1.73m2); Glucose 93 mg/dL (74-106); Potassium 4.7 mmol/L (3.5-5.1); Sodium 139 mmol/L (136-145); Total Protein 8.3 g/dL (6.4-8.2)
[2024-09-03 05:19] LABS: Vitamin B12 386 pg/mL (193-986)
== END 2024-09-02 18:21 | disposition home or self-care (01) ==
LOC: NCHCN 18:20
PROVIDERS: PCP Family Medicine; Visit Provider Family Medicine
DX: F10.20 Alcohol dependence, uncomplicated (principal)
CPT/HCPCS: 80053; 85027; 82607

== ENCOUNTER 2024-10-31 16:56 | Outpatient (REF) | payer MEDICARE, MEDICAID, SELFPAY ==
[2024-10-31 22:23] LABS: Hemoglobin A1C 5.5 % (<5.7)
== END 2024-10-31 16:57 | disposition home or self-care (01) ==
LOC: NCHCN 16:56
PROVIDERS: PCP Family Medicine; Referring Provider Family Medicine; Visit Provider Family Medicine
DX: N18.31 Chronic kidney disease, stage 3a (principal); R73.03 Prediabetes; E78.5 Hyperlipidemia, unspecified
CPT/HCPCS: 80048; 80061; 83036

== ENCOUNTER 2024-11-12 05:30 | Outpatient (CLI) | payer MEDICARE, MEDICAID, SELFPAY ==
[2024-11-12] MEDS: Inhaler, Assist Device 1 EACH MC (17:12)
[2024-11-12] MEDS: Levalbuterol HFA 15 GM INH 4 PUFF IH (17:12)
--- NOTE | 2024-11-13 12:05 | W.PFT ---
Date of service: 11/12/24 Time of Service: 15:04 Pulmonary Function Test Result Indications: COPD Impression 1. Good patient effort was noted. ATS standards for reproducibility were met. 2. Spirometry showed mild obstructive lung disease with an FEV1 of 83% (1.42 L) 3. Following the administration of a bronchodilator there was not a significant response 4. TLC was normal. No evidence of restrictive lung disease 5. DLCO was 49%%, consistent with a severe defect in alveolar gas exchange
== END 2024-11-12 05:31 | disposition home or self-care (01) ==
LOC: RT 05:31
PROVIDERS: PCP Family Medicine; Visit Provider Internal Medicine Pulmonary Disease
DX: J44.9 Chronic obstructive pulmonary disease, unspecified (principal)
CPT/HCPCS: 94060; 94726; 94729

== ENCOUNTER → 2024-12-10 14:37 | Outpatient (BNVA) | payer MEDICARE, MEDICAID, SELFPAY | PROVIDERS: PCP Family Medicine; Referring Provider Family Medicine; Visit Provider Internal Medicine Pulmonary Disease | DX: J44.9 Chronic obstructive pulmonary disease, unspecified (principal); Z87.891 Personal history of nicotine dependence; J96.11 Chronic respiratory failure with hypoxia | CPT/HCPCS: 99214; 94618; G0296 ==

== ENCOUNTER 2024-12-10 15:37 | Outpatient (REF) | payer MEDICARE, MEDICAID, SELFPAY ==
[2024-12-10 21:25] LABS: Anion Gap 9.1 mmol/L (3-11); BUN 17 mg/dL (7-18); CO2 27.9 mmol/L (21.0-32.0); Calcium 9.0 mg/dL (8.5-10.1); Calculated LDL 103 mg/dL (<100); Chloride 101 mmol/L (98-107); Cholesterol 221 mg/dL (<200); Estimated GFR 67.50 (mL/min/1.73m2); Glucose 97 mg/dL (74-106); HDL Cholesterol 102 mg/dL (>or=50); Potassium 4.2 mmol/L (3.5-5.1); Sodium 138 mmol/L (136-145); Triglyceride 80 mg/dL (<150)
== END 2024-12-10 15:38 | disposition home or self-care (01) ==
LOC: NCHCN 15:37
PROVIDERS: PCP Family Medicine; Visit Provider Family Medicine
DX: I10 Essential (primary) hypertension (principal); E78.5 Hyperlipidemia, unspecified
CPT/HCPCS: 80048; 80061

== ENCOUNTER → 2025-03-20 14:25 | Outpatient (BNVA) | payer MEDICARE, MEDICAID, SELFPAY | PROVIDERS: PCP Family Medicine; Referring Provider Family Medicine; Visit Provider Physician Assistant Surgical | DX: J44.1 Chronic obstructive pulmonary disease with (acute) exacerbation (principal); Z87.891 Personal history of nicotine dependence; J96.91 Respiratory failure, unspecified with hypoxia | CPT/HCPCS: 99214; 36415 ==

== ENCOUNTER 2025-03-20 16:51 | Outpatient (REF) | payer MEDICARE, MEDICAID, SELFPAY ==
[2025-03-20 15:57] LABS: Abs Immature Grans 0.02 10^3/uL (0.0-0.06); HCT 38.1 % (36.0-46.0); HGB 12.0 g/dL (11.2-15.7); Immature Grans % 0.3 %; MCH 27.6 pg (27.0-33.0); MCHC 31.5 % (32.0-36.0); MCV 88 fL (80-95); MPV 9.5 fL (8.0-11.0); Platelet Count 248 10^3/uL (130-400); RBC 4.35 10^6/uL (3.93-5.22); RDW 15.3 % (11.7-14.6); RDW-SD 49.0 fL; WBC 7.71 10^3/uL (4.4-10.8)
== END 2025-03-20 16:52 | disposition home or self-care (01) ==
LOC: LBN 16:51
PROVIDERS: PCP Family Medicine; Visit Provider Physician Assistant Surgical
DX: J44.9 Chronic obstructive pulmonary disease, unspecified (principal)
CPT/HCPCS: 85025